=== PATIENT | male | born 1945 | race Caucasian/White ===

== ENCOUNTER 2016-07-24 05:20 | Inpatient (IN) | payer BC, OTHER ==
[2016-07-18 13:34] VITALS: BMI 39.0
--- NOTE | 2016-07-18 14:04 | PAT Medication Instructions ---
Service Date Jul 18, 2016. Current Home Medication List Albuterol Hfa (Ventolin Hfa), 2 PUFFS INH Q4 PRN for cough,wheeze,sob,prior to exer Amlodipine (Norvasc), 5 MG PO QAM Carvedilol (Coreg), 12.5 MG PO BID Cetirizine (Zyrtec), 10 MG PO QAM Fluticasone Propionate (Flovent Hfa), 2 PUFFS INH BID Ibuprofen (Advil), 200-600 MG PO TID Indapamide (Indapamide), 2.5 MG PO QAM Lisinopril (Zestril), 40 MG PO QAM Mometasone Furoate (Nasonex), 2 SPRAY VIC BID Pravastatin (Pravachol ), 20 MG PO QAM Sildenafil Citrate (Revatio), 3 TABS PO DAILY PRN for erectile dysfunction Sumatriptan Succinate (Imitrex), 100 MG PO UD PRN for Migraine Sumatriptan Succinate (Imitrex Statdose), 6 MG SQ UD PRN for Migraine Medication Instructions For Your Scheduled Surgery Sumatriptan Succinate (Imitrex), 100 MG PO UD PRN for Migraine (takes rarely and only with migraines) Sumatriptan Succinate (Imitrex Statdose), 6 MG SQ UD PRN for Migraine (takes rarely and only with migraines) - Hold the following medications 7 days prior to surgery: Ibuprofen (Advil), 200-600 MG PO TID - Hold the following medications 24 hours prior to surgery: Sildenafil Citrate (Revatio), 3 TABS PO DAILY PRN for erectile dysfunction - Hold the following medications the morning of surgery: Lisinopril (Zestril), 40 MG PO QAM Indapamide (Indapamide), 2.5 MG PO QAM Cetirizine (Zyrtec), 10 MG PO QAM - Take the following medications the morning of surgery with a sip of water: Pravastatin (Pravachol ), 20 MG PO QAM Mometasone Furoate (Nasonex), 2 SPRAY VIC BID Fluticasone Propionate (Flovent Hfa), 2 PUFFS INH BID Carvedilol (Coreg), 12.5 MG PO BID Amlodipine (Norvasc), 5 MG PO QAM Albuterol Hfa (Ventolin Hfa), 2 PUFFS INH Q4 PRN for cough,wheeze,sob,prior to exer (bring with you to hospital on day of surgery) - Take the following medications as scheduled the night before surgery: Mometasone Furoate (Nasonex), 2 SPRAY VIC BID Fluticasone Propionate (Flovent Hfa), 2 PUFFS INH BID Carvedilol (Coreg), 12.5 MG PO BID Albuterol Hfa (Ventolin Hfa), 2 PUFFS INH Q4 PRN for cough,wheeze,sob,prior to exer If you have any questions please call us at [phone] or [phone] ( Izabela) or [phone]
[2016-07-18 14:20] LABS: BASO % 0.6 %; BASO ABS # 0.05 K/uL (0-0.2); COMPLETE YES; EOS % 14.6 %; IG% 1.1 %; LYMPH % 28.8 %; LYMPH ABS # 2.27 K/uL (1.2-3.4); MEAN CELL VOLUME 93.3 fL (80-100); MEAN CORPUSCULAR HEMOGLOBIN 31.9 pg (25-34); MEAN CORPUSCULAR HGB CONC 34.2 g/dl (32-36); MEAN PLATELET VOLUME 9.8 fL (7.4-10.4); MONO % 8.1 %; NEUT % 46.8 %; PLATELET COUNT 225 K/uL (130-400); RED BLOOD COUNT 4.61 M/uL (4.7-6.1); WHITE BLOOD COUNT 7.89 K/uL (4.8-10.8)
[2016-07-18 14:27] LABS: MANUAL MICROSCOPIC REQUIRED? NO; REVIEW REQ? NO; URINE APPEARANCE CLEAR (CLEAR); URINE BILIRUBIN NEG (NEG); URINE COLOR YELLOW; URINE EPITHELIAL CELL AUTO 0-5 /lpf (0-5); URINE NITRITE NEG (NEG); URINE SPECIFIC GRAVITY 1.015 (1.000-1.030); UROBILINOGEN NEG (NEG)
[2016-07-18 14:29] LABS: PARTIAL THROMBOPLASTIN RATIO 0.9; PROTHROMBIN TIME (PATIENT) 10.7 SECONDS (9.0-12.0)
--- NOTE | 2016-07-18 14:29 | DIAGNOSTIC IMAGING REPORT ---
CHEST 2 VIEWS ROUTINE CLINICAL HISTORY: Preoperative evaluation. COMPARISON STUDY: Chest radiograph May 20, 2016. FINDINGS: Lung volumes are at the lower limits of normal. There is no pneumothorax or pleural effusion. Mild to moderate cardiomegaly is noted. There is no evidence of pulmonary edema. There are chronic deformities of several anterior right-sided ribs. IMPRESSION: 1. No acute findings. 2. Mild to moderate cardiomegaly. Electronically signed by: Meet Mclaughlin M.D. 07/18/2016 2:27 PM Dictated Date/Time: 07/18/2016 2:26 PM
[2016-07-18 14:59] LABS: BUN/CREATININE RATIO 10.2 (10-20); CALCIUM 9.3 mg/dl (8.5-10.1); CREATININE 1.3 mg/dl (0.60-1.40); POTASSIUM 3.2 mmol/L (3.5-5.1)
--- NOTE | 2016-07-18 16:20 | HISTORY & PHYSICAL EXAMINATION ---
DATE OF ADMISSION: 07/24/2016 ATTENDING PHYSICIAN: Dr. Hidalgo from [facility]. CHIEF COMPLAINT: Left knee pain. HISTORY OF PRESENT ILLNESS: Jordin is a 70-year-old male patient of Dr. Hidalgo's from [facility] with a long history of left knee pain that has failed conservative treatment, which includes intraarticular joint injections, behavior modification, rest, [id number] oral anti-inflammatories or analgesics, thermal modalities and prior surgery. He admits to pain on a daily basis, it is worse with activity, he has pain at rest and makes certain activities of daily living difficult, denies any recent injuries or falls. Denies numbness or tingling distally and denies any calf pain. PAST MEDICAL HISTORY: 1. Hypertension. 2. Asthma. 3. Seasonal allergies. 4. Osteoarthritis. 5. Obesity. 6. History of kidney stones. 7. History of migraine. PAST SURGICAL HISTORY: 1. Hiatal hernia repair. 2. Sinus surgery, polyp removal. 3. Left knee arthroscopy, partial meniscectomy. 4. Appendectomy. 5. Tonsillectomy. SOCIAL HISTORY: The patient lives at home in a safe environment. He does have a prior history of smoking cigarettes, 1 pack a day for 20 years. He discontinued smoking in 1976. He drinks wine socially. Denies any current tobacco or illegal drug use. He is . FAMILY HISTORY: Noncontributory. MEDICATIONS: 1. Excedrin oral tablet 2 tabs as needed for migraine. 2. Zyrtec 10 mg tab as needed. 3. Flovent HFA 44 mcg INH 2 puffs inhaled twice daily. 4. Ibuprofen 200 mg tabs as needed for pain. 5. Lisinopril 10 mg tab daily. 6. Nasonex 50 mcg INH spray, 2 sprays twice a day as needed for allergy symptoms. 7. Verapamil 40 mg tablet once daily. ALLERGIES: No known drug allergies. REVIEW OF SYSTEMS: The patient denies headache, chest pain, shortness of breath, fevers, chills or night sweats. PHYSICAL EXAMINATION: GENERAL: The patient is alert and oriented x3 male, who is in no acute distress, pleasant, appears his currently stated age. HEENT: Head is atraumatic, normocephalic. Eyes are equal, round react to light and accommodation. NECK: Supple. No JVD. No lymphadenopathy. Oral and nasal cavities are patent. No exudate or erythema. The patient's dentition reveals lower frontal dental implants that are permanently fixated; his upper dentition does not reveal any obvious caries or infection. CARDIAC: Regular rate and rhythm. S1 greater than S2. No murmurs, rubs or gallops appreciated. RESPIRATORY: Lungs are clear to auscultation bilaterally in all lung rosales. No rales, rhonchi or wheezing. GASTROINTESTINAL: Abdomen is rounded, soft, nontender, nondistended. Normal active bowel sounds all 4 quadrants. SKIN: Exam of the patient's left knee does not reveal any erythema, ecchymosis, abrasions, lacerations or skin breakdown. NEUROVASCULAR: The left lower extremity distally pulses +2. Capillary refill under 2 seconds. Good sensation to light touch. Toes freely mobile. +5 strength with dorsi and plantar flexion of the foot. Calf is supple, nontender. MUSCULOSKELETAL: Exam of the patient's left knee - range of motion is, the patient is able to reach terminal extension at 0 degrees, has flexion upwards of 115 degrees with pain at endpoints along the medial joint line and he has medial joint line tenderness, he has a positive modified Sarahy flexion circumduction test. Please note he has pain only medially. He has crepitation noted in the patellofemoral joint with range of motion. Ligamentously stable regarding cruciate and collateral ligaments. No obvious cystic changes or masses in the popliteal fossa. His extensor mechanism is intact. Slight antalgic gait. Hip and ankle atraumatic. RADIOGRAPHS: The patient's left knee reveal advanced osteoarthritis of the left knee on AP, lateral and sunrise views. There is periarticular osteophytosis, joint space narrowing, sclerotic change, minimal evidence of subchondral cyst formation. There is no sign of fracture or dislocation. Otherwise, no evidence of cystic changes or masses in the bone. IMPRESSION: Left knee degenerative joint disease. PLAN: Jordin will undergo a left total knee arthroplasty by Dr. Hidalgo at the [facility] on 07/24/2016. The patient has already obtained preoperative medical clearance through his PCP, Dr. Sarah Beltran from [facility]. He is scheduled to have cardiac clearance on 07/22/[address] Ford from [facility]. The patient will discontinue his nonsteroidal anti-inflammatory medication 1 week prior to surgery. The patient is requesting to have outpatient services after being discharged from the hospital; he would like to perform physical therapy at [facility] and this will be scheduled for the Friday after he is discharged from the hospital. He will follow up 2 weeks after surgery with Elkin Jones on 08/08/2016 for staple removal. The patient had preadmission testing appointment on 07/18/2016 and obtained preoperative labs, CBC with diff, electrolytes, BUN, creatinine, PT/INR, EKG, chest x-ray, type and screen and urinalysis. The patient will use Coumadin x6 weeks postoperatively for DVT prophylaxis with a target INR of 1.8-2.2. He will use Percocet for postoperative pain control. Jordin will require a walker postoperatively; he states he has a walker and a cane for assistance afterwards if needed, when discontinuing the walker. Any other questions or concerns, notify [facility] at [phone].
[2016-07-24] VITALS (11 sets, daily range): BP systolic 114–142; BP diastolic 73–93; PULSE 70–84; TEMP 36.4–36.9; O2SAT 91–98; Ht 172.7 cm; Wt 115.6 kg
[~2016-07-24] VITALS: Ht 172.7 cm; Wt 115.6 kg
[~2016-07-24 05:20] MED LIST: AMLO-110 PO; CARV12.52 PO; CETI10TA84 PO; FLVHFA110 INH; IBUP-1050 PO; INDA2.5T PO; LISI40TA PO; MOME50SP5 NAE; PRAV20TA PO; SILD1TAB25 PO; SUMA100T16 PO; SUMA6KIT SQ; VNTHFA/IN INH
[2016-07-24] MEDS ORDERED: TRANEXAMIC ACID INJ 1,000 MG in SODIUM CHLORIDE 0.9% 100ML 100 ML IV SCH ×2 (06:00→15:00)
[2016-07-24] MEDS ORDERED: ROPIVACAINE 5MG/ML 30 ML 150 MG, BUPIVACAINE/EPINEPHR 0.5% MPF 30 ML, KETOROLAC TROMETH... INFIL SCH ×7 (06:00)
[2016-07-24] MEDS ORDERED: LACTATED RINGER'S 1000ML 1,000 ML IV SCH (06:00)
[2016-07-24] MEDS ORDERED: LACTATED RINGER'S 1000ML IV SCH (06:00)
[2016-07-24] MEDS ORDERED: CEFAZOLIN 2000 MG/60 ML D5W 60 ML IV SCH (06:00)
[2016-07-24] MEDS ORDERED: BUPIVACAINE 0.5 % 5 MG/1 ML PF 10ML VIAL ONE (06:16)
[2016-07-24] MEDS ORDERED: BUPIVACAINE 0.25% 30 ML VIAL ONE (06:17)
--- NOTE | 2016-07-24 06:21 | History & Physical Bridge Note ---
H&P Re-Evaluation Bridge Note: I have examined the patient, reviewed the History & Physical and in the interval since the performance of the History & Physical I have noted the following changes of clinical significance: No changes noted
[2016-07-24] MEDS ORDERED: POVIDONE-IODINE OP SOLN 30 ML BTL ONE (06:30)
[2016-07-24] MEDS ORDERED: ORTHO JOINT ANESTHETIC ONE (06:30)
[2016-07-24] MEDS ORDERED: PROPOFOL IV EMULSION 10 MG/ML 20 ML VIAL IV ONE (06:30)
[2016-07-24] MEDS ORDERED: LIDOCAINE HCL 2% 2 ML VIAL (20MG/ML) ONE (06:30)
[2016-07-24] MEDS ORDERED: FENTANYL CITRATE INJ 50 MCG/1 ML 2 ML VIAL ONE (06:31)
[2016-07-24] MEDS ORDERED: MIDAZOLAM HCL 1 MG/ML 2ML VIAL ONE (06:31)
[2016-07-24] MEDS ORDERED: LACTATED RINGER'S 1000ML 1,000 ML IV PRN (07:18)
[2016-07-24] MEDS ORDERED: ONDANSETRON INJ 2 MG/ML 2 ML VIAL IV PRN ×2 (07:30→08:45)
[2016-07-24] MEDS ORDERED: FENTANYL CITRATE INJ 50 MCG/1 ML 2 ML VIAL IV PRN (07:30)
--- NOTE | 2016-07-24 08:23 | [facility] Post Operative Brief Note ---
Immediate Operative Summary Operative Date Jul 24, 2016. Pre-Operative Diagnosis Left Knee Degnerative Joint Disease Post-Operative Diagnosis Left Knee Degnerative Joint Disease Procedure(s) Performed Left Total Knee Arthroplasty Surgeon Dr. Hidalgo Payroll Consultant Surgeon(s) YURI Lay Estimated Blood Loss 50 ml Findings medial djd Fluids (cc crystalloids) 1500cc Specimens A. Left Knee Bone and Tissue Drains none Anesthesia spinal/block Complication(s) None Disposition Recovery Room / PACU
--- NOTE | 2016-07-24 08:36 | OPERATIVE REPORT ---
DATE OF OPERATION: 07/24/2016 PREOPERATIVE DIAGNOSIS: Osteoarthritis with varus deformity, left knee. POSTOPERATIVE DIAGNOSIS: Same. OPERATION PERFORMED: Cemented left total knee replacement. SURGEON: Dr. Hidalgo. AMMONIA STILL OPERATOR: Elkin Jones PA-C. SECOND AMMONIA STILL OPERATOR: SOULEYMANE Pro. PERIOPERATIVE SITUATION: Medically cleared male with intractable knee pain, has progressive varus deformity, joint space narrowing, recurrent effusions, has failed conservative management for years. At this point in time wants to proceed with surgical treatment. X-ray revealed marked joint space narrowing medially, periarticular osteophytes tricompartmentally. SUMMARY OF IMPLANTS: Size 4 posterior cruciate substituting femur left, size 4 cemented tibial tray rotating platform, oval domed 3 pegged patella size 41, tibial insert rotating platform posterior cruciate stabilized size 10, oval domed 3 pegged patella as stated and 2 bags of Palacos G cement. PROCEDURE: The patient was properly identified, site verified, consent verified, 2 grams of Ancef confirmed as being given. The left lower extremity was prepped and draped in usual routine fashion. Tourniquet inflated to 300 mmHg after exsanguination of limb with a rubber Esmarch bandage for a total of 48 minutes. Midline exposure utilized. Parapatellar arthrotomy performed. Appropriate soft tissue releases performed, synovectomy completed. Osteophytes resected. Distal femur entered. Distal femur resected 12 mm. The tibia subluxated, menisci remnants excised. There was grade 4 disease in the medial compartment. The tibia was resected 4 mm. The extension gap was excellent. The femur again was sized between a 5 and 4, was measured 5 cut 4 and then the flexion gap checked. It was excellent. The box cut was then made. The tibia was then broached and reamed to a size 4 and the trials fit well. The patella tracked well. The patella was sized to 41. It was resected leaving 15 mm. The trial holes seated and the patella tracked well. All remaining elements were then removed from the trial aspect. The wound irrigated with Betadine Pulsavac, Orthomix injected and then the permanent cemented into position. After 12 minutes, the tourniquet deflated. After 14 minutes the knee flexed. The knee irrigated. No cement removal was necessary. The knee irrigated with Betadine and Pulsavac and then the permanent spacer seated. The knee reduced and closed, minimal blood loss was noted, about 50 mL. No drain was placed. #1 Ethibond, #1 Vicryl, 2-0 Vicryl and stainless steel clips were used for the closure in layers. Appropriate dressing applied. The patient was then transferred to recovery room in satisfactory condition having tolerated the procedure well. Crystalloid about 1500 mL. Deep venous thrombosis prophylaxis per protocol. I attest to the content of the Intraoperative Record and any orders documented therein. Any exceptio ns are noted below.
[2016-07-24] MEDS ORDERED: SUMATRIPTAN SUCC TAB 100 MG TAB PO PRN (08:45)
[2016-07-24] MEDS ORDERED: BISACODYL 10 MG SUPP PR PRN (08:45)
[2016-07-24] MEDS ORDERED: SILDENAFIL CITRATE 20 MG TAB PO PRN (08:45)
[2016-07-24] MEDS ORDERED: ALBUTEROL HFA 8 GM INHALER INH PRN (08:45)
[2016-07-24] MEDS ORDERED: TAMSULOSIN HCL 0.4 MG CAP PO PRN (08:45)
[2016-07-24] MEDS ORDERED: DiphenhydrAMINE HCL 50 MG/ML VIAL IV PRN (08:45)
[2016-07-24] MEDS ORDERED: METOCLOPRAMIDE HCL INJ 5 MG/ML 2 ML VIAL IV PRN (08:45)
[2016-07-24] MEDS ORDERED: OXYCODONE HCL IR 5 MG TAB (IMMEDIATE RELEASE) PO PRN (08:45)
[2016-07-24] MEDS ORDERED: ALUMINUM/MAGNESIUM/SIMETH (MAALOX MAX) 30 ML UDC PO PRN (08:45)
[2016-07-24] MEDS ORDERED: MoRPHine SULFATE 2 MG/ML CARP IV PRN (08:45)
[2016-07-24] MEDS ORDERED: MAGNESIUM HYDROXIDE SUSP 30 ML UDC PO PRN (08:45)
[2016-07-24] MEDS ORDERED: SUMATRIPTAN SUCCINATE 6 MG/0.5 ML VIAL SQ PRN (08:45)
[2016-07-24] MEDS ORDERED: ACETAMINOPHEN 325 MG TAB PO PRN (08:45)
[2016-07-24] MEDS ORDERED: ACETAMINOPHEN IV 100 ML IV PRN (08:45)
--- NOTE | 2016-07-24 08:50 | DIAGNOSTIC IMAGING REPORT ---
LEFT KNEE 1 OR 2 VIEWS ROUTINE CLINICAL HISTORY: AP/LATERAL IN PACU LEFT KNEE joint replacement COMPARISON: None. DISCUSSION: Status post total left knee replacement. Good contact between prosthetic and underlying bone. Expected soft tissue postoperative change IMPRESSION: Anatomic alignment status post total left knee replacement Electronically signed by: Luis Fernando Mendez M.D. 07/24/2016 8:49 AM Dictated Date/Time: 07/24/2016 8:48 AM
[2016-07-24] MEDS: AMLODIPINE BESYLATE 5 MG TAB PO SCH (09:00)
[2016-07-24] MEDS ORDERED: INDAPAMIDE 2.5 MG PO SCH (09:00)
--- NOTE | 2016-07-24 09:45 | Anesthesiology Progress Note ---
Anesthesia Post Op Note Date & Time Jul 24, 2016 at 09:45 Vital Signs Pain Intensity: 0 Vital Signs Past 12 Hours Date Time Temp Pulse Resp B/P Pulse Ox O2 Delivery O2 Flow Rate FiO2 07/24/16 09:30 36.2 76 18 116/85 100 Nasal Cannula 2 07/24/16 09:20 72 12 115/84 100 Nasal Cannula 2 07/24/16 09:10 71 16 118/80 95 Nasal Cannula 2 07/24/16 09:00 78 16 115/86 96 Nasal Cannula 2 07/24/16 08:50 73 16 122/85 96 Nasal Cannula 2 07/24/16 08:40 76 13 123/83 92 Nasal Cannula 2 07/24/16 08:33 36.0 76 16 110/82 96 Nasal Cannula 2 07/24/16 05:48 36.7 79 20 128/84 94 Room Air 07/24/16 05:42 36.7 79 20 128/84 Notes Mental Status: alert / awake / arousable, participated in evaluation Pt Amnestic to Procedure: Yes Nausea / Vomiting: adequately controlled Pain: adequately controlled Airway Patency, RR, SpO2: stable & adequate BP & HR: stable & adequate Hydration State: stable & adequate Neuraxial Anesthesia: was administered, sensory block is resolving Anesthetic Complications: no major complications apparent
--- NOTE | 2016-07-24 10:54 | OPERATIVE REPORT ---
DATE OF OPERATION: 07/24/2016 PREOPERATIVE DIAGNOSIS: Left knee degenerative joint disease. POSTOPERATIVE DIAGNOSIS: Left knee same. PROCEDURE: Left knee total knee arthroplasty using DePuy implants. SURGEON: Dr. Hidalgo. OPERATIONS PROGRAM MANAGER: Elkin Jones PA-C. HISTORY OF PRESENT ILLNESS: This 70-year-old white male presented to the office with complaints of intractable left knee pain. He had tried conservative care measures including oral anti-inflammatories, oral pain medication, activity modification and viscosupplementation injections as well as cortisone injections without lasting relief. He elected to proceed with surgical intervention after being educated about potential risks and outcomes. Preoperative x-rays were obtained. OPERATION: The patient was administered spinal anesthetic and then taken to the operating room where he was given sedation. He was prepped and draped in the usual sterile fashion. Please see Dr. Hidalgo's operative report for specifics of the procedure. I was present for the entire case from initial patient positioning through final wound closure. Assistance was provided in tissue retraction, hemostasis, trial implant placement, final implant placement, and final wound closure. The patient was taken to the recovery room in satisfactory condition. I attest to the content of the Intraoperative Record and any orders documented therein. Any exceptio ns are noted below.
[2016-07-24] MEDS ORDERED: OXYC-57 PO (10:59)
[2016-07-24] MEDS ORDERED: WARF2TAB PO (10:59)
--- NOTE | 2016-07-24 11:10 | PROGRESS NOTE ---
DATE: 07/24/2016 Postop check status post left total knee replacement. He has no problems presently. Denies chest pain, shortness of breath, fever, chills, nausea, vomiting, headache. He is keeping water down. His vital signs are stable. He is afebrile. Neurovascular check, femoral sciatic nerve is excellent. Postop x-rays look excellent. ASSESSMENT: Overall, doing well. Continue with care pathway. Mobilize RIKI. If tolerates lunch and snack in the afternoon can Hep-Lock his IV.
--- NOTE | 2016-07-24 11:13 | Medical Student: [facility] ---
Operative Report Operative Date Jul 24, 2016. Pre-Operative Diagnosis Osteoarthritis of Left Knee Post-Operative Diagnosis Osteoarthritis of Left Knee Procedure(s) Performed Total Left Knee Arthroplasty Surgeon Dr. Rocky MD Horizontal Resaw Operator Surgeon(s) Elkin Jones PA-C Estimated Blood Loss Less than 50 mL Findings Confirmation of osteoarthritis of left knee Fluids (cc crystalloids) 1500 cc Specimens Bone and soft tissue Anesthesia Spinal Complication(s) None Disposition Recovery Room / PACU
--- NOTE | 2016-07-24 11:40 | Medical Consult ---
Consultation Date of Consultation: Jul 24, 2016. Attending Physician: Nghia Hidalgo M.D. Reason for Consultation: Post Op Medical Management History of Present Illness 70 year old male who is s/p left TKA today by Dr. Hidalgo. Patient has had increasing left knee pain for some time and failed outpatient conservative measures. He therefore presented for the planned procedure today. Post operatively the patient is doing well. He reports he continues to have mild numbness to the BLLE and pain is controlled. No chest pain or shortness of breath. He denies lightheadedness and dizziness. No abdominal pain, nausea, or vomiting. He has not voided since surgery. Past Medical/Surgical History Medical Problems: (1) Asthma Status: Chronic (2) HTN (hypertension) Status: Chronic (3) Migraine Status: Chronic Surgical Problems: (1) H/O colonoscopy Status: Chronic (2) H/O hand surgery Status: Chronic (3) H/O sinus surgery Status: Chronic (4) History of appendectomy Status: Chronic (5) History of esophagogastroduodenoscopy (EGD) Status: Chronic (6) Hx of tonsillectomy Status: Chronic Social History Smoking Status: Former Smoker Alcohol Use: occasionally Allergies Coded Allergies: No Known Allergies (Verified , 07/24/16) Home Medications Norvasc (Amlodipine Besylate) 5 Mg Tab 5 Mg PO QAM Advil (Ibuprofen) 200 Mg Tab 200-600 Mg PO TID HOLD 07/15/16 Imitrex Statdose (Sumatriptan Succinate) 6 Mg/0.5 Ml Inj 6 Mg SQ UD PRN 1 at onset. may repeat in 2 hours if needed Imitrex (Sumatriptan Succinate) 100 Mg Tab 100 Mg PO UD PRN use 1 at onset. may repeat in 2 hour if needed Flovent Hfa (Fluticasone Propionate) 120 Puffs/71289 Mcg Aero 2 Puffs INH BID Revatio (Sildenafil Citrate) 20 Mg Tab 3 Tabs PO DAILY PRN Ventolin Hfa (Albuterol) 200 Puffs/[id number] Mcg Aers 2 Puffs INH Q4 PRN Coreg (Carvedilol) 12.5 Mg Tab 12.5 Mg PO BID Indapamide 2.5 Mg Tab 2.5 Mg PO QAM Pravachol (Pravastatin Sodium) 20 Mg Tab 20 Mg PO QAM Zyrtec (Cetirizine HCl) 10 Mg Tab 10 Mg PO QAM Nasonex (Mometasone Furoate) Preemption 2 Preemption VIC BID Zestril (Lisinopril) 40 Mg Tab 40 Mg PO QAM Current Inpatient Medications Current Inpatient Medications Medications (Trade) Dose Ordered Sig/Sharan Route Start Time Stop Time Status Last Admin Dose Admin Ropivacaine 150 mg/Bupivacaine HCl/Epinephrine Bitart 30 ml/ Ketorolac Tromethamine 30 mg/Dexamethasone Sodium Phosphate 4 mg/Ketamine HCl 10 mg/Clonidine 100 mcg/Sodium Chloride 30 ml/ Empty Bag 93.2 ml @ 0 mls/hr PREOP INFIL 07/24/16 06:00 07/24/16 23:00 07/24/16 07:31 93.2 MLS/HR Lactated Ringer's 1,000 ml @ 60 mls/hr [id number] IV 07/24/16 06:00 07/24/16 22:39 Cefazolin Sodium 60 ml @ 100 mls/hr PREOP IV 07/24/16 06:00 07/24/16 18:00 07/24/16 06:58 100 MLS/HR Lactated Ringer's (Lr 1000ml) 1,000 ml @ 15 mls/hr Q24H IV 07/24/16 06:00 07/25/16 05:59 07/24/16 06:27 15 MLS/HR Fentanyl Citrate (Fentanyl Inj) 25 mcg Q5M PRN IV 07/24/16 07:30 07/24/16 12:30 Ondansetron HCl 4 mg 4 mg ONE PRN IV 07/24/16 07:30 07/24/16 12:30 Lactated Ringer's 1,000 ml @ 150 mls/hr Q6H40M PRN IV 07/24/16 07:18 07/24/16 12:30 Potassium Chloride/Dextrose/ Sod Cl 1,000 ml @ 100 mls/hr Q10H IV 07/24/16 12:00 07/25/16 11:59 Cefazolin Sodium/ Dextrose (Ancef Iv/D5 50ml) 60 ml @ 100 mls/hr Q8H IV 07/24/16 14:00 07/24/16 22:35 Ketorolac Tromethamine (Toradol Inj) 15 mg Q6H IV. 07/24/16 14:00 07/25/16 13:59 Oxycodone HCl (Roxicodone Immediate Rel Tab) 1 TABLET FOR PAIN RATING... Q4H PRN PO 07/24/16 08:45 08/07/16 08:44 Morphine Sulfate (MoRPHine SULFATE INJ) 2 mg Q1H PRN IV 07/24/16 08:45 08/07/16 08:44 Acetaminophen (Tylenol Tab) 650 mg Q6H PRN PO 07/24/16 08:45 08/23/16 08:44 UNV Magnesium Hydroxide (Milk Of Magnesia Susp) 30 ml Q6H PRN PO 07/24/16 08:45 08/23/16 08:44 UNV Bisacodyl (Dulcolax Supp) 10 mg DAILY PRN VT 07/24/16 08:45 08/23/16 08:44 UNV Docusate Sodium (coLACE CAP) 100 mg BID PO 07/24/16 09:00 08/23/16 08:59 UNV Diphenhydramine HCl (Benadryl Inj) 25 mg Q8H PRN IV 07/24/16 08:45 08/23/16 08:44 UNV Al Hydrox/Mg Hydrox/Simethicone (Maalox Max Susp) 15 ml Q4H PRN PO 07/24/16 08:45 08/23/16 08:44 UNV Multivitamins (Multivitamin Tab) 1 tab QAM PO 07/24/16 09:00 08/23/16 08:59 UNV Ondansetron HCl (Zofran Inj) 4 mg Q6H PRN IV 07/24/16 08:45 08/23/16 08:44 UNV Metoclopramide HCl (Reglan Inj) 10 mg Q6H PRN IV 07/24/16 08:45 08/23/16 08:44 UNV Ferrous Gluconate (Ferrous Gluconate Tab) 324 mg TIDM PO 07/24/16 12:00 08/23/16 11:59 UNV Pantoprazole Sodium (Protonix Tab) 40 mg QAM PO 07/24/16 09:00 08/23/16 08:59 UNV Tamsulosin HCl 0.4 mg 0.4 mg QAM PRN PO 07/24/16 08:45 08/23/16 08:44 UNV Tranexamic Acid 1000 mg/Sodium Chloride 110 ml @ 660 mls/hr Q6H IV 07/24/16 08:45 07/24/16 08:54 UNV Dexamethasone Sodium Phosphate/ Syringe (Decadron Inj/ Syringe) 2.5 ml @ 1 mls/min 0730 IV 07/25/16 07:30 07/25/16 07:33 UNV Albuterol (Ventolin Hfa Inhaler) 2 puffs Q4 PRN INH 07/24/16 08:45 08/23/16 08:44 UNV Amlodipine Besylate (Norvasc Tab) 5 mg QAM PO 07/24/16 09:00 08/23/16 08:59 UNV Carvedilol (Coreg Tab) 12.5 mg BID PO 07/24/16 09:00 08/23/16 08:59 UNV Cetirizine HCl (zyrTEC TAB) 10 mg QAM PO 07/24/16 09:00 08/23/16 08:59 UNV Fluticasone Propionate (Flovent Hfa 110MCG Inhaler) 2 puffs BID INH 07/24/16 09:00 08/23/16 08:59 UNV Lisinopril (Zestril Tab) 40 mg QAM PO 07/24/16 09:00 08/23/16 08:59 UNV Pravastatin Sodium (Pravachol Tab) 20 mg QAM PO 07/24/16 09:00 08/23/16 08:59 UNV Sumatriptan Succinate (Imitrex Tab) 100 mg UD PRN PO 07/24/16 08:45 08/23/16 08:44 UNV Non-Formulary Medication (Mometasone Furoate (Nasonex)) 2 spray BID VIC 07/24/16 09:00 08/23/16 08:59 UNV Non-Formulary Medication 6 mg 6 mg UD PRN SQ 07/24/16 08:45 08/23/16 08:44 UNV Acetaminophen (Ofirmev Iv) 100 ml @ 400 mls/hr Q8H PRN IV 07/24/16 08:45 07/25/16 09:00 UNV Review of Systems 10 point review of systems was completed with the pertinent positives and negatives noted per the HPI Physical Exam Date Time Temp Pulse Resp B/P Pulse Ox O2 Delivery O2 Flow Rate FiO2 07/24/16 10:52 70 16 122/82 95 Nasal Cannula 2.0 07/24/16 10:20 71 16 121/85 94 Nasal Cannula 2.0 07/24/16 09:50 36.4 74 16 125/81 95 Nasal Cannula 2.0 07/24/16 09:50 Nasal Cannula 2.0 07/24/16 09:50 95 Nasal Cannula 2.0 07/24/16 09:45 75 13 120/86 100 Nasal Cannula 2 07/24/16 09:30 36.2 76 18 116/85 100 Nasal Cannula 2 07/24/16 09:20 72 12 115/84 100 Nasal Cannula 2 07/24/16 09:10 71 16 118/80 95 Nasal Cannula 2 07/24/16 09:00 78 16 115/86 96 Nasal Cannula 2 07/24/16 08:50 73 16 122/85 96 Nasal Cannula 2 07/24/16 08:40 76 13 123/83 92 Nasal Cannula 2 07/24/16 08:33 36.0 76 16 110/82 96 Nasal Cannula 2 07/24/16 05:48 36.7 79 20 128/84 94 Room Air 07/24/16 05:42 36.7 79 20 128/84 General Appearance: no apparent distress Head: normocephalic Eyes: normal inspection ENT: hearing grossly normal Neck: supple, no JVD Respiratory/Chest: lungs clear, normal breath sounds, no respiratory distress Cardiovascular: regular rate, rhythm, no edema, normal peripheral pulses Abdomen/GI: normal bowel sounds, non tender, soft Extremities/Musculoskelatal: + pertinent finding (s/p left knee surgery, surgical dressing intact, CSM checks intact to BLLE) Neurologic/Psych: no motor/sensory deficits, alert, normal mood/affect, oriented x 3 Skin: normal color, warm/dry Assessment & Plan S/P LEFT TKA - POD#0 - activity and wound care orders as per ortho - pain control with bowel regimen - PT/OT - monitor H/H for acute blood loss anemia and transfuse blood products PRN HTN - BP controlled, continue carvedilol and lisinopril - holding indapamide to prevent perioperative dehydration ASTHMA - no signs of exacerbation - not on routine inhalers at home DYSLIPIDEMIA - continue statin DVT PROPHYLAXIS - deferred to ortho Thank you for this consultation. We will follow the patient with you during their hospital stay. You can reach a member of the [facility] Hospitalist Team 16/12 via pager @ [phone]. ADDENDUM: This is a 70 year old male with PMH of HTN, HLD presents for a total left knee. He had cardiac pre-operative clearance; no cardiac history. No other issues to note currently. GEN: +obese, no acute distress CVS: +S1, S2, RRR LUNGS: CTA b/l, no wheezing ABD: soft, NT/ND EXT: no edema, left knee dressing in place Plan as above; PT/OT, has outpatient rehab scheduled for Friday Hold indapamide; continue other blood pressure pills - his BP is controlled
[2016-07-24] MEDS ORDERED: MoRPHine SULFATE 4 MG/ML 1 ML CARP\\VIAL IV PRN (11:45)
[2016-07-24] MEDS ORDERED: D5W AND 1/2NSS + 20MEQ KCL 1,000 ML IV SCH (12:00)
[2016-07-24] MEDS: MULTIVITAMIN TAB PO SCH (12:43)
[2016-07-24] MEDS: PANTOprazole SOD 40 MG TAB PO SCH (12:43)
[2016-07-24] MEDS: FERROUS GLUCONATE 324 MG TAB PO SCH ×2 (12:43→17:54)
[2016-07-24] MEDS: DOCUSATE SODIUM 100 MG CAP PO SCH ×2 (12:43→21:30)
[2016-07-24] MEDS: KETOROLAC TROMETHAMINE 15 MG/ML VIAL IV. SCH ×2 (14:20→21:29)
[2016-07-24] MEDS: CEFAZOLIN IV 2,000 MG in DEXTROSE 5% 50ML 50 ML IV SCH ×2 (14:20→21:30)
[2016-07-24] MEDS ORDERED: WARFARIN SOD 5 MG TAB PO SCH (16:00)
[2016-07-24] MEDS ORDERED: MOMETASONE FUROATE NAE SCH (21:00)
[2016-07-24] MEDS: FLUTICASONE HFA 110MCG INHALER INH SCH (21:29)
[2016-07-24] MEDS: CARVEDILOL 12.5 MG TAB PO SCH (21:29)
[2016-07-24] MEDS: FLUTICASONE PROPIONATE NA SPR 16 GM BTL NAE SCH (21:39)
[2016-07-25] MEDS: KETOROLAC TROMETHAMINE 15 MG/ML VIAL IV. SCH ×2 (01:15→08:00)
[2016-07-25 03:11] VITALS: BP 124/79; PULSE 74; TEMP 36.5; O2SAT 92
[2016-07-25 06:36] LABS: PROTHROMBIN TIME (PATIENT) 10.7 SECONDS (9.0-12.0)
[2016-07-25 06:54] LABS: HEMATOCRIT 36.6 % (42-52); MEAN CELL VOLUME 92.2 fL (80-100); MEAN CORPUSCULAR HEMOGLOBIN 31.5 pg (25-34); MEAN CORPUSCULAR HGB CONC 34.2 g/dl (32-36); MEAN PLATELET VOLUME 10.3 fL (7.4-10.4); PLATELET COUNT 152 K/uL (130-400); RED BLOOD COUNT 3.97 M/uL (4.7-6.1); WHITE BLOOD COUNT 11.61 K/uL (4.8-10.8)
[2016-07-25 06:56] LABS: BUN/CREATININE RATIO 18.1 (10-20); CALCIUM 8.2 mg/dl (8.5-10.1); CREATININE 1.2 mg/dl (0.60-1.40); POTASSIUM 4.5 mmol/L (3.5-5.1)
[2016-07-25] MEDS: FLUTICASONE HFA 110MCG INHALER INH SCH (07:14)
[2016-07-25] MEDS: FLUTICASONE PROPIONATE NA SPR 16 GM BTL NAE SCH (07:14)
[2016-07-25] MEDS ORDERED: DEXAMETHASONE INJ 10 MG in SYRINGE 0 ML IV SCH (07:30)
[2016-07-25 07:51] VITALS: BP 120/79; PULSE 66; TEMP 36.5; O2SAT 93
--- NOTE | 2016-07-25 07:51 | PROGRESS NOTE ---
DATE: 07/25/2016 Postop day 1 status post left total knee replacement. At this point in time the patient is comfortable, has no chest pain, shortness of breath, fever, chills, nausea, vomiting or headache. He has been ambulating in the perales. Vital signs are stable. He is afebrile. Electrolytes are within normal limits. Hematocrit stable at 36.6. Wound dressing clean, dry and intact. Neurovascular check femoral sciatic nerve is normal. ASSESSMENT: Overall, doing well. Will discharge today postop day #1 after PT, OT. Follow up in 2 weeks for staple removal. Discharge on 4 mg Coumadin a day. INR is 1.0 today. Coumadin per nomogram today. Discharge on 4 mg daily. Check INR on Friday.
--- NOTE | 2016-07-25 07:53 | DISCHARGE SUMMARY ---
DATE OF DISCHARGE: 07/25/2016. CHIEF COMPLAINT: Left knee pain. HISTORY OF PRESENT ILLNESS: The patient is admitted for elective left total knee replacement. Hospital course has been uneventful. He is doing well. He will be discharged postop day #1. PAST MEDICAL HISTORY: Remarkable for hypertension, asthma, seasonal allergies, osteoarthritis, obesity, kidney stones and migraine. PAST SURGICAL HISTORY: Remarkable for hiatal hernia, sinus surgery, knee arthroscopies, appendectomy, tonsillectomy. SOCIAL HISTORY: Reveals that he lives at home. He does have a prior history of smoking 20 years. He stopped smoking in 1976. Social drinker only. Denies any current tobacco or drug use. He is . FAMILY HISTORY: Noncontributory. PREADMISSION MEDICATIONS: Include Excedrin, Zyrtec, Flovent, ibuprofen, lisinopril, Nasonex and verapamil doses as previously stated. He will discontinue the ibuprofen and add Coumadin, discharged on 4 mg daily, get INR to 1.8 to 2.2, p.r.n. Percocet. ALLERGIES: None. HOSPITAL COURSE: Has been uneventful. He is doing well. Physical examination stable. At this point in time his Hematocrit stable at 36.6. He will be discharged today after PT/OT. Social service consult. Follow up in 2 weeks for staple removal.
--- NOTE | 2016-07-25 08:21 | Discharge Instructions ---
Discharge Instructions Admission Reason for Admission: Left Knee Degenerative Joint Disease Discharge Discharge Diagnosis / Problem: left knee s/p total knee replacement Discharge Goals Goal(s): Decrease discomfort, Improve function, Increase independence Activity Recommendations Activity Limitations: as noted below Lifting Limitations: gradually increase as tolerated Exercise/Sports Limitations: until after follow-up appointment Shower/Bathe: keep incision dry Driving or Machine Use: no driving until cleared by Dr. Hidalgo Weightbearing Status: Left weightbearing (as tolerated) . Instructions / Follow-Up Instructions / Follow-Up New Medicine: * You will likely be taking one or more of these medications: 1. Percocet - Take, as directed, when you need it, every four to six hours to control your pain. 2. Coumadin - Thins your blood to lessen the chance of forming a blood clot. The dose of this is different for each person and is based on your blood tests that are done twice a week. * The most common side effects of pain medicine is nausea and constipation. If nausea or constipation is too much of a problem or if you have any questions about your new medicines or doses, call [facility] at . We will try to help you manage these issues. VERY IMPORTANT TO READ AND REVIEW" Blood Clots and Blood Thinning Medicine: * You are given Coumadin during the immediate post-operative period to lessen the risk of blood clots forming in your legs and/or lungs. Coumadin is usually given for six weeks after surgery. * The prescription is for 2 mg tablets. At discharge, you should understand your dose and take it all at the same time every day, preferably after dinner. * You need to get your blood checked 1 - 2 times per week for six weeks or as directed. * If your dose needs to change, we will call you. Do not take your medication on the day of the blood test until we call you. Pain: * The immediate post-operative period after knee replacement surgery is often quite painful. * You are given a prescription for pain medicine. You should take it, as directed, when you need it, especially before physical therapy and before going to bed. Pain that interferes with sleep is very common and can last several months. * You will likely need pain medicine for the first four to six weeks. It will not stop all of the pain. The pain will lessen and as you feel better, you may change to milder pain medicine such as Tylenol. * The most common side effects of pain medicine are nausea and constipation, so don't take more than you need. Physical Therapy: * You will have physical therapy two or three times each week for four to six weeks after your surgery in order to regain your knee range of motion and to retrain your knee to work properly. * It is just as important to make sure you are getting your knee perfectly straight as it is to regain your knee bend. * Taking a pain pill an hour before therapy can help you have a more productive and comfortable therapy session if needed. Home Exercise: * You were shown a series of exercises (heel props, heel slides, etc.) in the hospital. Do these exercises three to four times each day including the exercises you were shown in physical therapy. Walking: * Get up and walk several times each day. For the first four weeks, try not to stand or walk for more than one hour at a time. If you do stand or walk for more than one hour, you will not hurt anything, but your knee and leg will likely swell. * As you feel comfortable, you may change from the walker or crutches to a cane and then to independent walking. SELF CARE INSTRUCTIONS AFTER TOTAL KNEE REPLACEMENT A. You may need to continue a physical therapy program after discharge from the hospital. There are several options available to you. Your doctor will assist you in selecting the best one for you. 1. An out-patient facility 2 to 3 times a week for therapy or home therapy. 2. Continue working on all exercises taught to you in the hospital. Your goals should be to increase bending of your knee to 90 degrees and beyond and to fully straighten your knee. B. You may progress at your own pace from walking with a walker or crutches to a cane; then to no assistive devices. C. Make walking a part of your daily routine. Be up as much as comfortable with rest periods throughout the day. Rest with leg elevation is very important. Use the ice wrap frequently for the first 3-4 weeks. D. There are no restrictions on activities. You may ride in a car, shop, participate in marketing information manager and all social activities. E. Wear the long elastic stockings (CODY hose) 20 hours a day for six weeks after surgery. They can be removed several times a day for laundering and for a shower. F. Do not place a pillow behind your knee when resting. A pillow at your ankle is okay. VERY IMPORTANT TO READ AND REVIEW A. Take Coumadin, Aspirin or Lovenox (blood thinning medications) as directed by your doctor. If on Coumadin, have a pro-time (blood test) drawn according to your doctor's instructions. This will tell the doctor how well the Coumadin is thinning your blood. 1. YOU WILL BE GIVEN AN ORDER AT DISCHARGE FOR PT/INR (BLOOD WORK). PLEASE HAVE THIS DONE INSTRUCTED. PLEASE CALL OUR OFFICE AFTER YOUR BLOODWORK IS COMPLETE SO WE CAN TRACK YOUR RESULTS. IF YOU ARE GOING TO OUTPATIENT PHYSICAL THERAPY, YOU WILL NEED TO GO TO OUTPATIENT TESTING TO HAVE IT DRAWN. B. There are a few signs you need to watch for after you are home. Call [facility] if you notice any of the followin. Increased severe knee pain. Some pain is expected especially when you exercise. 2. Increased swelling in your leg or knee; pain or swelling of the calf muscle in either lower leg. 3. Any fluid drainage from the incision. 4. Shortness of breath or chest pain. C. Please call [facility] at if you have any concerns or questions about your operation or recovery. The doctor or his nurse will return your call promptly. D. You must take antibiotics before dental work, bladder, bowel or other surgery. Call the office to obtain a prescription at least 2 days prior to your appointment. * CALL IF INCREASED PAIN, REDNESS, DRAINAGE OR FEVER GREATER THAT 101. * Sutures should be removed 12-14 days after surgery unless you are on chronic steriods, then it will be 14-18 days after surgery. Call your doctor if: * Temperature above 101 degrees F. * Pain not relieved by pain medicine ordered. * Increased drainage or redness from incision. * Notify your doctor with any questions or concerns. Current Hospital Diet Patient's current hospital diet: AHA Diet (Heart Healthy) Discharge Diet Recommended Diet: AHA Diet (Heart Healthy) Procedures Procedures Performed: Left Total Knee Arthroplasty Pending Studies Studies pending at discharge: no Medical Emergencies . Who to Call and When: Medical Emergencies: If at any time you feel your situation is an emergency, please call 911 immediately. . Non-Emergent Contact Non-Emergency issues call your: Primary Care Provider, Surgeon Call Non-Emergent contact if: temperature is above 100.5, wound has increased drainage, wound has increased redness, wound has increased pain, you have any medication questions . "Provider Documentation" section prepared by Elkin Jones PA-C. VTE Core Measure Inpt VTE Proph given/why not?: Warfarin (Coumadin), T.E.D. Stockings, SCD's
[2016-07-25] MEDS: FERROUS GLUCONATE 324 MG TAB PO SCH (08:30)
[2016-07-25] MEDS: AMLODIPINE BESYLATE 5 MG TAB PO SCH (08:30)
[2016-07-25] MEDS: DOCUSATE SODIUM 100 MG CAP PO SCH (08:31)
[2016-07-25] MEDS: CARVEDILOL 12.5 MG TAB PO SCH (08:31)
[2016-07-25] MEDS: MULTIVITAMIN TAB PO SCH (08:31)
[2016-07-25] MEDS: PANTOprazole SOD 40 MG TAB PO SCH (08:32)
--- NOTE | 2016-07-25 08:34 | Progress Note ---
Orthopedic SOAP Note Subjective Date of Service: Jul 25, 2016. Post OP Day: 1 Reports: feeling well, pain controlled w PO medications, Denies: SOB, calf pain , chest pain, complaints, light headedness, nausea / vomiting, using ADMITTANCE ATTENDANT Problem List Medical Problems: (1) Diaphoresis Status: Acute (2) Hypotension Status: Acute Objective calves soft nontender, N/V intact, capillary refill less than 2 sec., dressing C /D/I, incision C/D/I, A&O x3, toes mobile Date Time Temp Pulse Resp B/P Pulse Ox O2 Delivery O2 Flow Rate FiO2 07/25/16 07:51 36.5 66 16 120/79 93 Room Air 07/25/16 07:12 Room Air 07/25/16 03:11 36.5 74 14 124/79 92 Room Air 07/24/16 23:49 36.7 74 16 114/73 91 Room Air 07/24/16 21:33 84 119/79 07/24/16 20:40 Room Air 07/24/16 19:42 36.9 83 16 142/93 91 Room Air 07/24/16 14:55 36.8 75 16 125/84 95 Room Air 07/24/16 12:50 72 16 124/82 98 Nasal Cannula 2.0 07/24/16 11:50 73 16 127/84 97 Nasal Cannula 2.0 07/24/16 10:52 70 16 122/82 95 Nasal Cannula 2.0 07/24/16 10:20 71 16 121/85 94 Nasal Cannula 2.0 07/24/16 09:50 36.4 74 16 125/81 95 Nasal Cannula 2.0 07/24/16 09:50 Nasal Cannula 2.0 07/24/16 09:50 95 Nasal Cannula 2.0 07/24/16 09:45 75 13 120/86 100 Nasal Cannula 2 07/24/16 09:30 36.2 76 18 116/85 100 Nasal Cannula 2 07/24/16 09:20 72 12 115/84 100 Nasal Cannula 2 07/24/16 09:10 71 16 118/80 95 Nasal Cannula 2 07/24/16 09:00 78 16 115/86 96 Nasal Cannula 2 07/24/16 08:50 73 16 122/85 96 Nasal Cannula 2 07/24/16 08:40 76 13 123/83 92 Nasal Cannula 2 07/24/16 08:33 36.0 76 16 110/82 96 Nasal Cannula 2 Laboratory Results 24 Hours: Test 07/25/16 06:16 Hematocrit 36.6 % Hemoglobin 12.5 g/dL Prothromb Time International Ratio 1.0 Prothrombin Time 10.7 SECONDS Assessment post op day 1 left total knee arthroplasty Plan continue post op care PT/OT DVT prophylaxis with Coumadin x 6 weeks with target INR 1.8-2.2 Will go home on 4mg Coumadin, recheck INR Friday Pain control with prescribed medications ice/elevate resume diet WBAT left L.E. and walker PT scheduled for Friday at [facility] f/u in 2 weeks for staple removal Discharge home today
[2016-07-25] MEDS ORDERED: LISINOPRIL 40 MG TAB PO SCH (09:00)
[2016-07-25] MEDS ORDERED: CETIRIZINE HCL 10 MG TAB PO SCH (09:00)
[2016-07-25] MEDS ORDERED: PRAVASTATIN SOD 20 MG TAB PO SCH (09:00)
[2016-07-25 10:15] VITALS: BP 120/76; PULSE 78; O2SAT 94
[2016-07-25 10:26] VITALS: BP 120/79; PULSE 66; TEMP 36.5; O2SAT 93
[2016-07-25] MEDS ORDERED: NURSING VERBAL MED ORDER ONE (10:45)
[2016-07-25] MEDS ORDERED: WARFARIN SOD 5 MG TAB PO ONE (11:00)
== END 2016-07-25 11:57 | disposition home or self-care (01) | DRG 470 ==
LOC: ENRESERVTM → ENRESERVDT → C.ACU 05:20 → C.3E 06:00
PROVIDERS: ADMIT Physical Medicine & Rehabilitation Sports Medicine; ATTEND Physical Medicine & Rehabilitation Sports Medicine
PROC: 0SRD0J9 Replacement of Left Knee Joint with Synthetic Substitute, Cemented, Open Approach (ICD-10-PCS; principal; 2016-07-24 07:00)
DX: M17.12 Unilateral primary osteoarthritis, left knee (principal); I10 Essential (primary) hypertension; J45.909 Unspecified asthma, uncomplicated; E78.5 Hyperlipidemia, unspecified; E66.9 Obesity, unspecified; Z87.891 Personal history of nicotine dependence; Z68.38 Body mass index [BMI] 38.0-38.9, adult

== ENCOUNTER → 2016-11-18 | Outpatient (CLI) | payer BC, OTHER ==
[~2016-11-18] MED LIST changes: -IBUP-1050 PO; +OXYC-57 PO; +WARF2TAB PO
--- NOTE | 2016-11-18 12:04 | DIAGNOSTIC IMAGING REPORT ---
BILATERAL KNEE RADIOGRAPHS CLINICAL HISTORY: Bilateral knee pain. COMPARISON STUDY: Knee radiographs November 10, 2015 and left knee radiograph July 24, 2016. FINDINGS: Right knee: Alignment of the right knee is anatomic. No fracture or joint effusion is identified. Joint spaces are preserved. There is minimal osteophytosis of the right knee. Left knee: Alignment of the total left knee arthroplasty is anatomic. There is no periprosthetic fracture or lucency. There is soft tissue swelling and a suspected moderate size left knee joint effusion. IMPRESSION: Right knee: 1. No acute fracture or joint effusion. 2. Mild osteoporosis of the patellofemoral compartment. Left knee: 1. Status post total left knee arthroplasty. No periprosthetic fracture or lucency. 2. Left knee soft tissue swelling and a suspected moderate size left knee joint effusion. Electronically signed by: Meet Mclaughlin M.D. 11/18/2016 12:03 PM Dictated Date/Time: 11/18/2016 12:00 PM
== END | disposition home or self-care (01) ==
LOC: C.RDSM 13:22
PROVIDERS: ATTEND Physician Assistant
DX: M17.11 Unilateral primary osteoarthritis, right knee (principal); Z96.652 Presence of left artificial knee joint

== ENCOUNTER → 2017-02-03 | Outpatient (CLI) | payer BC ==
[~2017-02-03] MED LIST changes: -OXYC-57 PO; -WARF2TAB PO
== END | disposition home or self-care (01) ==
LOC: C.RDSM 08:53
PROVIDERS: ATTEND Physical Medicine & Rehabilitation Sports Medicine
DX: Z96.652 Presence of left artificial knee joint (principal)

== ENCOUNTER 2017-06-23 12:36 | Emergency (ER) | payer OTHER ==
[~2017-06-23] VITALS: Ht 172.7 cm; Wt 112.2 kg
[~2017-06-23 12:36] MED LIST changes: -APIX1TAB3 PO
[2017-06-23 13:00] VITALS: TEMP 36.7; Ht 172.7 cm; Wt 112.2 kg
[2017-06-23] MEDS ORDERED: APIX1TAB3 PO (13:20)
[2017-06-23] MEDS ORDERED: APIXABAN 2.5 MG TAB PO ONE (13:30)
--- NOTE | 2017-06-23 13:33 | EMERGENCY ROOM VISIT NOTE ---
History First contact with patient: 12:41 Chief Complaint: REFERRED BY DOCTOR Stated Complaint: SENT FROM ULTR History of Present Illness The patient is a 71 year old male who presents to the Emergency Room with complaints of left lower extremity swelling. The patient was sent from ultrasound with the findings. He has had swelling in his left leg for less than one week. He denies any recent trauma or surgeries. He denies chest pains or shortness of breath. He has not had recent fevers or illness. Review of Systems As above otherwise negative for 10 systems Past Medical/Surgical History Medical Problems: (1) Asthma (2) HTN (hypertension) (3) Migraine Surgical Problems: (1) H/O colonoscopy (2) H/O hand surgery (3) H/O sinus surgery (4) History of appendectomy (5) History of esophagogastroduodenoscopy (EGD) (6) Hx of tonsillectomy Family History FH: heart disease FATHER MOTHER FH: prostate cancer BROTHER BROTHER Stroke MOTHER Social History Smoking Status: Former Smoker Alcohol Use: occasionally Current/Historical Medications Scheduled Amlodipine (Norvasc), 5 MG PO QAM Apixaban (Eliquis), 5 MG PO BID Apixaban (Eliquis), 10 MG PO BID Carvedilol (Coreg), 12.5 MG PO BID Cetirizine (Zyrtec), 10 MG PO QAM Fluticasone Propionate (Flovent Hfa), 2 PUFFS INH BID Indapamide (Indapamide), 2.5 MG PO QAM Lisinopril (Zestril), 40 MG PO QAM Mometasone Furoate (Nasonex), 2 SPRAY VIC BID Pravastatin (Pravachol ), 20 MG PO QAM Scheduled PRN Albuterol Hfa (Ventolin Hfa), 2 PUFFS INH Q4 PRN for cough,wheeze,sob,prior to exer Sildenafil Citrate (Revatio), 3 TABS PO DAILY PRN for erectile dysfunction Sumatriptan Succinate (Imitrex), 100 MG PO UD PRN for Migraine Sumatriptan Succinate (Imitrex Statdose), 6 MG SQ UD PRN for Migraine Physical Exam Vital Signs Date Time Temp Pulse Resp B/P (MAP) Pulse Ox O2 Delivery O2 Flow Rate FiO2 06/23/17 13:00 36.7 78 18 163/105 96 Room Air Physical Exam CONSTITUTIONAL/VITAL SIGNS: Reviewed / noted above. GENERAL: Non-toxic in appearance. INTEGUMENTARY: Warm, dry, and [place]. HEAD: Normocephalic. EYES: without scleral icterus or trauma. ENT/OROPHARYNX: clear and moist. LYMPHADENOPATHY/NECK: Is supple without lymphadenopathy or meningismus. RESPIRATORY: Lungs clear and equal. CARDIOVASCULAR: Regular rate and rhythm. GI/ABDOMEN: Soft and nontender. No organomegaly or pulsatile mass. No rebound or guarding. Normal bowel sounds. EXTREMITIES: Warm and well perfused. The patient has left lower extremity edema without cyanosis or pallor. No obvious infection. BACK: No CVA tenderness. NEUROLOGICAL: Intact without focal deficits. PSYCHIATRIC: normal affect. MUSCULOSKELETAL: Normally developed with good muscle tone. TRIAGE NURSING DOCUMENTATION REVIEWED. Medical Decision & Procedures ER Provider Diagnostic Interpretation: ULTRASOUND LEFT LOWER EXTREMITY VENOUS CLINICAL HISTORY: Left lower extremity edema. COMPARISON STUDY: Bilateral lower extremity venous ultrasound dated 11/11/2014. TECHNIQUE: Real-time, grayscale, and color Doppler sonography of the deep veins of the left lower extremity was performed from the inguinal crease to the calf. Compression and augmentation were utilized. FINDINGS: There is extensive and nearly occlusive to occlusive deep venous thrombosis seen throughout the left lower extremity. This extends from the midportion of the superficial femoral vein into the popliteal vein. There is also likely thrombus in the calf within the peroneal vessels. The common femoral as well as the proximal portion of the superficial femoral vein are patent and normally compressible. The greater saphenous vein and the profunda femoris vein at the junction with the common femoral vein are clear. The anterior and posterior tibial veins in the calf appear clear. IMPRESSION: Extensive nearly occlusive to occlusive left lower extremity deep venous thrombosis as above. ED Course After examining the patient, he was started on Eliquis 10mg po. Medical Decision This is a 71-year-old male who presents to the ED with a chief complaint of left leg swelling and his extensive DVT on ultrasound. There is no clinical findings to suggest phlegmasia cerulea alba dolens. He does not have any chest pains or shortness of breath to suggest PE. He was started on Eliquis and was discharged home. He was told to return for sudden onset of chest pains, shortness of breath or other concerns. He was cautioned on use of the lower extremities and is to limit exercise and lower extremities until swelling and discomfort results. He was also cautioned on the use of anticoagulation is a relates to trauma and bleeding. Impression Primary Impression: DVT (deep venous thrombosis) Departure Information Prescriptions Apixaban (ELIQUIS) 5 Mg Tab 10 MG PO BID for 7 Days, #28 TAB Prov: José Manuel De Jesus D.O. 06/23/17 Apixaban (ELIQUIS) 5 Mg Tab 5 MG PO BID for 30 Days, #60 TAB Prov: José Manuel De Jesus D.O. 06/23/17 Referrals No Doctor, Assigned (PCP) Forms WORK / SCHOOL INSTRUCTIONS, HOME CARE DOCUMENTATION FORM, IMPORTANT VISIT INFORMATION Patient Instructions DVT, DVT Complications, [facility] Additional Instructions Apixaban 10 mg twice a day for 7 days followed by 5 mg twice a day for 7 days. Return to the emergency department for sudden chest pains, shortness of breath or other concerns. Follow-up with your doctor for further care and evaluation in 1-5 days. Return to the emergency department for worsening or new symptoms or any concerns. You have been examined and treated today on an emergency basis only. This is not a substitute for, or an effort to provide, complete comprehensive medical care. It is impossible to recognize and treat all injuries or illnesses in a single emergency department visit. It is therefore important that you follow up closely with your doctor. Call as soon as possible for an appointment. Avoid excessive exercise or use to the lower extremities until swelling and pain resolves.
[2017-06-23 13:51] VITALS: BP 175/115; PULSE 82; O2SAT 96
== END 2017-06-23 13:54 | disposition home or self-care (01) ==
LOC: C.EDB 12:37
DX: I82.402 Acute embolism and thrombosis of unspecified deep veins of left lower extremity (principal); I10 Essential (primary) hypertension; J45.909 Unspecified asthma, uncomplicated; Z87.891 Personal history of nicotine dependence; Z82.49 Family history of ischemic heart disease and other diseases of the circulatory system; Z80.42 Family history of malignant neoplasm of prostate; Z82.3 Family history of stroke

== ENCOUNTER → 2017-06-23 | Outpatient (CLI) | payer OTHER ==
[~2017-06-23] MED LIST changes: +APIX1TAB3 PO
--- NOTE | 2017-06-23 12:03 | DIAGNOSTIC IMAGING REPORT ---
ULTRASOUND LEFT LOWER EXTREMITY VENOUS CLINICAL HISTORY: Left lower extremity edema. COMPARISON STUDY: Bilateral lower extremity venous ultrasound dated 11/11/2014. TECHNIQUE: Real-time, grayscale, and color Doppler sonography of the deep veins of the left lower extremity was performed from the inguinal crease to the calf. Compression and augmentation were utilized. FINDINGS: There is extensive and nearly occlusive to occlusive deep venous thrombosis seen throughout the left lower extremity. This extends from the midportion of the superficial femoral vein into the popliteal vein. There is also likely thrombus in the calf within the peroneal vessels. The common femoral as well as the proximal portion of the superficial femoral vein are patent and normally compressible. The greater saphenous vein and the profunda femoris vein at the junction with the common femoral vein are clear. The anterior and posterior tibial veins in the calf appear clear. IMPRESSION: Extensive nearly occlusive to occlusive left lower extremity deep venous thrombosis as above. Electronically signed by: Jayson Huffman M.D. 06/23/2017 12:01 PM Dictated Date/Time: 06/23/2017 11:59 AM
== END | disposition home or self-care (01) ==
LOC: C.ULTR 11:09
PROVIDERS: ATTEND Physician Assistant
DX: I82.402 Acute embolism and thrombosis of unspecified deep veins of left lower extremity (principal)

== ENCOUNTER → 2017-08-04 | Outpatient (CLI) | payer OTHER | END | disposition home or self-care (01) | LOC: C.RDSM 08:15 | PROVIDERS: ATTEND Physical Medicine & Rehabilitation Sports Medicine | DX: Z96.652 Presence of left artificial knee joint (principal); M17.11 Unilateral primary osteoarthritis, right knee ==

== ENCOUNTER → 2017-10-16 | Outpatient (CLI) | payer OTHER ==
--- NOTE | 2017-10-16 10:20 | DIAGNOSTIC IMAGING REPORT ---
L VENOUS DOPP LOWER EXT UNILAT CLINICAL HISTORY: 72 years-old Male presenting with L LEG ACUTE DVT. TECHNIQUE: Real-time grayscale and color and spectral Doppler ultrasound imaging of the veins of the left lower extremity was performed. Compression and augmentation were also utilized. COMPARISON: 06/23/2017. FINDINGS: Left: Common femoral vein: Patent. Greater saphenous vein: Patent. Deep femoral vein: Patent. Femoral vein: Eccentric nonocclusive filling defect consistent with thrombus evident in the distal femoral vein. More superior portions of the vein are patent. Popliteal vein: Primarily eccentric nearly occlusive filling defect consistent with thrombus in the popliteal vein. Calf veins: Limited visualization. Other: None. IMPRESSION: Thrombus in the distal femoral vein and popliteal vein is slightly more limited distribution than on prior exam. The appearance is most consistent with chronic thrombus. No other findings to suggest a new acute deep venous thrombosis. Electronically signed by: Davis Candelaria M.D. 10/16/2017 10:19 AM Dictated Date/Time: 10/16/2017 10:16 AM
== END | disposition home or self-care (01) ==
LOC: C.ULTR 09:44
PROVIDERS: ATTEND Internal Medicine Hematology
DX: I82.412 Acute embolism and thrombosis of left femoral vein (principal); I82.432 Acute embolism and thrombosis of left popliteal vein

== ENCOUNTER 2019-12-30 09:57 | Inpatient (IN) ==
[2019-12-30] MEDS ORDERED: SODIUM CHLORIDE 0.9% 1000ML 1,000 ML IV ONE ×3 (10:26→11:49)
[2019-12-30 10:49] LABS: Basophils # (auto) 0.03 K/uL (0-0.2); Basophils % (auto) 0.4 %; Eosinophils # (auto) 0.19 K/uL (0-0.5); Eosinophils % (auto) 2.4 %; Hematocrit (blood only) 46.3 % (42-52); Immature Granulocytes # (auto) 0.09 K/uL (0.00-0.02); Immature Granulocytes % (auto) 1.1 %; Lymphocytes # (auto) 1.31 K/uL (1.2-3.4); Lymphocytes % (auto) 16.6 %; Mean Corpuscular Hemoglobin 31.4 pg (25-34); Mean Corpuscular Hgb Conc 34.6 g/dL (32-36); Mean Platelet Volume 11.4 fL (7.4-10.4); Monocytes # (auto) 0.68 K/uL (0.11-0.59); Monocytes % (auto) 8.6 %; Neutrophils # (auto) 5.57 K/uL (1.4-6.5); Neutrophils % (auto) 70.9 %; Platelet Count 144 K/uL (130-400); RDW Coefficient of Variation 14.2 % (11.5-14.5); RDW Standard Deviation 47.8 fL (36.4-46.3); Red Blood Count 5.09 M/uL (4.7-6.1); White Blood Count 7.87 K/uL (4.8-10.8)
--- NOTE | 2019-12-30 10:59 | XRay Report ---
XR chest 1V portable HISTORY: 74 years-old Male weakness acute weakness with low back pain COMPARISON: Chest radiograph 05/20/2016 TECHNIQUE: Portable AP view of the chest FINDINGS: Cardiac silhouette is mildly enlarged. The lungs are hypoinflated. Calcified plaque of the thoracic a ortic arch. Ill-defined opacity of the medial right lung apex is likely secondary to summation densit y. Minimal linear left basilar atelectasis. No pneumothorax, pleural effusion, overt pulmonary edema or airspace consolidation typical for pneumonia. Degenerative changes of the shoulders and spine. IMPRESSION: No acute process. ACT 112: Negative or not required by law. The above report was generated using voice recognition software. It may contain grammatical, syntax o r spelling errors. Electronically signed by: Aristeo Cruz M.D. 12/30/2019 10:57 AM
--- NOTE | 2019-12-30 11:06 | Emergency Department Note ---
History of Present Illness General Chief complaint: Dehydration Stated complaint: dehydrated, run lab work Time Seen by Provider: 12/30/19 10:15 Source: patient Mode of arrival: wheelchair Limitations: no limitations History of Present Illness Provider complaint: Dehydration Maximum Pain Intensity: 8 This is a 74-year-old male who presents to the ED with a chief complaint of dehydration. The patient was sent to the emergency department by Dr. Steve. He was seen by his PCP 1 hour ago. He was told to come to the emergency department for dehydration. The patient states that he has achiness in his muscles and in his entire body but mostly in his thighs, hips and shoulders. He states that he just finished a course of doxycycline 2 days ago for anaplasmosis. He was placed on that for 2 weeks. The patient also states that he developed a rash on his chest and extremities following the initiation of doxycycline. He has seen a sql ssis developer for this and was placed on some topic al creams. The patient states that he had a little diarrhea couple days ago but nothing over the past 24 hours. He denies any nausea or vomiting. No headaches. No shortness of breath. No chest pains. No abdominal pains. The patient's initial blood pressure here was low. The patient typically takes medication for high blood pressure. Home Medications Home Medications Medication Instructions Recorded Confirmed Type cetirizine 10 mg tablet PO tab 03/24/19 04/28/19 History econazole 1 % topical cream TOPICAL .APPLY SPARINGLY TO T #1 gm 03/24/19 04/28/19 History lisinopril 30 mg tablet PO tab 03/24/19 04/28/19 History mometasone 0.1 % topical ointment TOPICAL .APPLY TO AFFECTED AR gm 03/24/19 04/28/19 History mometasone 50 mcg/actuation nasal INTRANASAL gm 03/24/19 04/28/19 History spray oxybutynin chloride 5 mg 5 mg PO DAILY #90 tab 06/15/19 Rx tablet,extended release 24 hr Allergies Allergy/AdvReac Type Severity Reaction Status Date / Time No Known Allergies Allergy Verified 04/28/19 15:07 Past Med/Surg History Medical History Arthritis Asthma Gout High blood pressure High cholesterol Kidney stones, calcium oxalate Family History Brother Prostate cancer Father Hypertension Heart disease Social History Smoking Status: Former smoker Hx Alcohol Use: Yes Hx Substance Use: No Feels Safe at Home: Yes Review of Systems A total of 10 systems reviewed and were otherwise negative Physical Exam Vital Signs Vital Signs - 24 hr 12/30/19 10:04 12/30/19 10:22 12/30/19 10:23 Temperature 36.6 C Temperature Source Oral Oral Pulse Rate 83 76 Pulse Rate [Forehead] Respiratory Rate 20 20 Respiratory Effort / Characteristics Respiratory Depth Blood Pressure 51/40 L 70/60 L Blood Pressure [Right Arm] Blood Pressure Mean 43 63 Blood Pressure Mean [Right Arm] Pulse Oximetry 94 100 100 Oxygen Delivery Method Room Air Room Air Room Air Sepsis Recent Fever Within 48 Hours No No Sepsis New/Unexplained Change in Mental Status No N/A Sepsis Action Taken by Nursing No Action Required No Action Required 12/30/19 10:34 12/30/19 10:40 12/30/19 10:44 Temperature Temperature Source Pulse Rate Pulse Rate [Forehead] 72 72 68 Respiratory Rate 16 16 12 Respiratory Effort / Characteristics Respiratory Depth Blood Pressure Blood Pressure [Right Arm] 63/47 L 70/49 L 82/55 L Blood Pressure Mean Blood Pressure Mean [Right Arm] 52 56 64 Pulse Oximetry 100 100 100 Oxygen Delivery Method Room Air Room Air Room Air Sepsis Recent Fever Within 48 Hours Sepsis New/Unexplained Change in Mental Status Sepsis Action Taken by Nursing 12/30/19 10:54 12/30/19 11:00 12/30/19 11:03 Temperature Temperature Source Pulse Rate 69 66 Pulse Rate [Forehead] 68 64 Respiratory Rate 20 18 Respiratory Effort / Characteristics Non-Labored Respiratory Depth Normal Blood Pressure 85/58 L 90/55 L Blood Pressure [Right Arm] 85/58 L 90/55 L Blood Pressure Mean 65 63 Blood Pressure Mean [Right Arm] 67 66 Pulse Oximetry 100 100 Oxygen Delivery Method Room Air Room Air Sepsis Recent Fever Within 48 Hours Sepsis New/Unexplained Change in Mental Status Sepsis Action Taken by Nursing 12/30/19 11:11 12/30/19 11:15 12/30/19 11:24 Temperature 37.2 C Temperature Source Rectal Pulse Rate 68 70 Pulse Rate [Forehead] Respiratory Rate Respiratory Effort / Characteristics Respiratory Depth Blood Pressure 85/52 L 89/58 L Blood Pressure [Right Arm] Blood Pressure Mean 60 63 Blood Pressure Mean [Right Arm] Pulse Oximetry Oxygen Delivery Method Sepsis Recent Fever Within 48 Hours Sepsis New/Unexplained Change in Mental Status Sepsis Action Taken by Nursing 12/30/19 11:30 Temperature Temperature Source Pulse Rate 67 Pulse Rate [Forehead] Respiratory Rate 18 Respiratory Effort / Characteristics Respiratory Depth Blood Pressure 90/60 L Blood Pressure [Right Arm] Blood Pressure Mean 66 Blood Pressure Mean [Right Arm] Pulse Oximetry 96 Oxygen Delivery Method Room Air Sepsis Recent Fever Within 48 Hours Sepsis New/Unexplained Change in Mental Status Sepsis Action Taken by Nursing CONSTITUTIONAL/VITAL SIGNS: Reviewed / noted above. GENERAL: Non-toxic in appearance. INTEGUMENTARY: Warm, dry, and [place]. The patient has a vasculitic type rash on his chest and arms. Does not appear acute. HEAD: Normocephalic. EYES: without scleral icterus or trauma. ENT/OROPHARYNX: clear and moist. LYMPHADENOPATHY/NECK: Is supple without lymphadenopathy or meningismus. RESPIRATORY: Lungs clear and equal. CARDIOVASCULAR: Regular rate and rhythm. GI/ABDOMEN: Soft and nontender. No organomegaly or pulsatile mass. No rebound or guarding. Normal bowel sounds. EXTREMITIES: Warm and well perfused. BACK: No CVA tenderness. NEUROLOGICAL: Intact without focal deficits. PSYCHIATRIC: normal affect. MUSCULOSKELETAL: Normally developed with good muscle tone. TRIAGE NURSING DOCUMENTATION REVIEWED. Course Administered Medications Sodium Chloride (Nss 1000ml) 1,000 mls @ 999 mls/hr IV .Q1H1M ONE Stop: 12/30/19 12:15 Last Admin: 12/30/19 11:18 Dose: 999 mls/hr Documented by: [id number] Discontinued Medications Sodium Chloride (Nss 1000ml) 1,000 mls @ 999 mls/hr IV .Q1H1M ONE Stop: 12/30/19 11:26 Last Infusion: 12/30/19 11:31 Dose: 0 mls/hr Documented by: [id number] Admin: 12/30/19 10:30 Dose: 999 mls/hr Documented by: [id number] Critical Care Time Critical Care Time: Yes Total Critical Care Time: 35 I have personally spent 35 minutes of critical care time in the direct management of this patient. This includes bedside care, interpretation of diagnostic studies, and testing, discussion with consultants, patient, and family members, and other required patient management activities. This 35 minutes is in excess of all separately billable procedures. Medical Decision Making Differential Diagnosis Differential includes acute coronary syndrome, myocardial infarction, CVA, TIA, anemia, infection, pneumonia, UTI, pyelonephritis, poor nutrition, dehydration, electrolyte disturbance,hypoglycemia. Medical Records Attestation: I reviewed the patient's medical records. Home Medications Current Medication List: was personally reviewed by me Laboratory Data Attestation: I reviewed the patient's lab results. Result diagrams: 12/30/19 10:30 12/30/19 10:30 Lab Results 12/30/19 12/30/19 12/30/19 Range/Units 10:30 10:30 10:30 WBC 7.87 (4.8-10.8) K/uL RBC 5.09 (4.7-6.1) M/uL Hgb 16.0 (14.0-18.0) g/dL Hct 46.3 (42-52) % MCV 91.0 (80-100) fL MCH 31.4 (25-34) pg MCHC 34.6 (32-36) g/dL RDW Std Deviation 47.8 H (36.4-46.3) fL RDW Coeff of Hanh 14.2 (11.5-14.5) % Plt Count 144 (130-400) K/uL MPV 11.4 H (7.4-10.4) fL Immature Gran % (Auto) 1.1 % Neut % (Auto) 70.9 % Lymph % (Auto) 16.6 % [place] % (Auto) 8.6 % Eos % (Auto) 2.4 % Baso % (Auto) 0.4 % Neut # (Auto) 5.57 (1.4-6.5) K/uL Lymph # (Auto) 1.31 (1.2-3.4) K/uL [place] # (Auto) 0.68 H (0.11-0.59) K/uL Eos # (Auto) 0.19 (0-0.5) K/uL Baso # (Auto) 0.03 (0-0.2) K/uL Immature Gran # (Auto) 0.09 H (0.00-0.02) K/uL Sodium 136 (136-145) mmol/L Potassium 4.1 (3.5-5.1) mmol/L Chloride 103 (98-107) mmol/L Carbon Dioxide 25 (21-32) mmol/L Anion Gap 8.0 (3-11) BUN 48 H (7-18) mg/dl Creatinine 1.52 H (0.6-1.4) mg/dl Est Cr Clr Drug Dosing 47.4 ml/min Est GFR ( Amer) 51.2 Est GFR (Non-Af Amer) 44.2 BUN/Creatinine Ratio 31.6 H (10-20) Glucose 121 H (70-99) mg/dl Lactate 2.2 H* (0.4-2.0) mmol/L Calcium 8.5 (8.5-10.1) mg/dl Total Bilirubin 0.7 (0.2-1) mg/dl AST 340 H (15-37) U/L ALT 106 H (12-78) U/L Alkaline Phosphatase 74 (45-117) U/L Total Creatine Kinase 3822 H (39-308) U/L Troponin I 0.028 (0-0.045) ng/ml Total Protein 6.3 L (6.4-8.2) gm/dl Albumin 2.6 L (3.4-5.0) gm/dl Globulin 3.7 (2.5-4.0) gm/dl Albumin/Globulin Ratio 0.7 L (0.9-2) TSH 3.510 (0.300-4.500) uIu/ml Imaging Data Radiologist's Impression: XR chest 1V portable HISTORY: 74 years-old Male weakness acute weakness with low back pain COMPARISON: Chest radiograph 05/20/2016 TECHNIQUE: Portable AP view of the chest FINDINGS: Cardiac silhouette is mildly enlarged. The lungs are hypoinflated. Calcified plaque of the thoracic aortic arch. Ill-defined opacity of the medial right lung apex is likely secondary to summation density. Minimal linear left basilar atelectasis. No pneumothorax, pleural effusion, overt pulmonary edema or airspace consolidation typical for pneumonia. Degenerative changes of the shoulders and spine. IMPRESSION: No acute process. ECG Data Attestation: I personally reviewed and interpreted this ECG as follows: Indication: + weakness Rate (beats per minute): 75 Rhythm: + normal sinus ECG Intervals/blocks: + Normal QT-c ECG ST segments: no ST elevation ECG Findings: no PVCs Blood Pressure Blood Pressure Findings: Low blood pressure MDM Narrative This is a 74-year-old male who presents to the ED with a chief complaint of dehydration. The patient was sent to the emergency department by Dr. Steve. He was seen by his PCP 1 hour ago. He was told to come to the emergency department for dehydration. The patient states that he has achiness in his muscles and in his entire body but mostly in his thighs, hips and shoulders. He states that he just finished a course of doxycycline 2 days ago for anaplasmosis. He was placed on that for 2 weeks. The patient also states that he developed a rash on his chest and extremities following the initiation of doxycycline. He has seen a sql ssis developer for this and was placed on some topical creams. The patient states that he had a little diarrhea couple days ago but nothing over the past 24 hours. He denies any nausea or vomiting. No headaches. No shortness of breath. No chest pains. No abdominal pains. The patient's initial blood pressure here was low. The patient's vital signs reveal hypotension. He does have a vasculitic type rash that appears somewhat subacute on the chest and arms. The patient is otherwise in no distress. The patient's lab studies reveal a normal CBC. His chemistry panel shows a BUN of 48 and a creatinine of 1.52. His lactate level slightly elevated 2.2. AST and ALT are slightly elevated. CK is 3822. TSH is normal. Chest x-ray did not show acute process. Twelve-lead EKG showed a normal sinus rhythm at a rate of 75. Because of the patient's somewhat persistent hypotension as well as his muscle pains and findings suggesting rhabdo myelitis/myositis and dehydration, the patient will be seen by the hospitalist for further inpatient evaluation and care. The patient is reportedly on a statin which may be causing his myositis. Impression & Plan Myositis, Rhabdomyolysis, Acute dehydration, Acute hypotension Discharge Plan Visit Data Chief Complaint: Dehydration Stated Complaint: dehydrated, run lab work ED Provider: José Manuel De Jesus Discharge Problem: Myositis, Rhabdomyolysis, Acute dehydration, Acute hypotension Patient Disposition: Being Evaluated by Hospitalist Forms Stand Alone Forms: [email or web address] Prescriptions Prescriptions: No Action oxybutynin chloride 5 mg tablet extended release 24hr 5 mg PO DAILY Qty: 90 RF: 4 cetirizine 10 mg tablet PO RF: 0 econazole 1 % cream topical .APPLY SPARINGLY TO T Qty: 1 RF: 0 lisinopril 30 mg tablet PO RF: 0 mometasone 50 mcg/actuation spray,non-aerosol intranasal RF: 0 mometasone 0.1 % ointment topical .APPLY TO AFFECTED AR RF: 0 Referrals Referrals: Adriano Cali MD [Primary Care Provider] - Discharge Problem: Myositis Qualifiers: Myositis type: unspecified type Myositis location: multiple sites Qualified Code(s): M60.9 - Myositis, unspecified Rhabdomyolysis Qualifiers: Rhabdomyolysis type: non-traumatic Qualified Code(s): M62.82 - Rhabdomyolysis
[2019-12-30 11:16] LABS: Albumin Level 2.6 gm/dl (3.4-5.0); BUN Creatinine Ratio 31.6 (10-20); Calcium 8.5 mg/dl (8.5-10.1); Creatinine Clr Calc Pharmacy 47.4 ml/min; Est GFR (African American) 51.2; Est GFR (Non-African American) 44.2; Potassium 4.1 mmol/L (3.5-5.1)
[2019-12-30 11:31] LABS: Albumin Globulin Ratio 0.7 (0.9-2); Bilirubin,Total 0.7 mg/dl (0.2-1); Globulin 3.7 gm/dl (2.5-4.0); Thyroid Stimulating Hormone 3.51 uIu/ml (0.300-4.500); Total Protein 6.3 gm/dl (6.4-8.2); Troponin I 0.028 ng/ml (0-0.045)
[2019-12-30] MEDS ORDERED: ONDANSETRON INJ 2 MG/ML 2 ML VIAL IV PRN (11:51)
[2019-12-30] MEDS ORDERED: NITROGLYCERIN SL 0.4 MG/TAB TAB SL PRN (11:51)
[2019-12-30] MEDS ORDERED: cefTRIAXone SODIUM 1,000 MG in DEXTROSE 5% 50 ML IV SCH (12:00)
[2019-12-30 12:48] LABS: Appearance Urine Clear (Clear); Bilirubin Urine Negative (Negative); Blood Urine Negative (Negative); Color Urine Yellow; Glucose Urine UA Negative (Negative); Ketones Urine Negative (Negative); Leukocyte Esterase Urine Negative (Negative); Nitrite Urine Negative (Negative); Protein Urine Negative (Negative); Specific Gravity Urine 1.013 (1.000-1.030); Urobilinogen Urine Negative (Negative)
--- NOTE | 2019-12-30 12:52 | History & Physical Report ---
Date of Service December 30, 2019 Assessment & Plan (1) Hypovolemic shock: (2) Hypotension due to hypovolemia: (3) LATRELL (acute kidney injury): (4) Rhabdomyolysis: (5) Lactic acid acidosis: (6) Elevated transaminase level: (7) Anaplasmosis: (8) PAF (paroxysmal atrial fibrillation): (9) HTN (hypertension): (10) Asthma: (11) DVT prophylaxis: This is a 74-year-old male who has significant past medical history of HTN, HLD, PAF anticoagulated on Eliquis, history of DVT/PE, Asthma, tophaceous gout, BPH, aortic valve stenosis, mitral valve stenosis who presents to ED secondary to feeling dehydrated, ill feeling and muscle pain x10 days. Please refer to attending communication note for details regarding details of assessment and plan. History of Present Illness Chief Complaint: ill feeling, dehydrated and muscle pain x 10 days. Primary Care Provider: Adriano Cali MD This is a 74-year-old male who has significant past medical history of HTN, HLD, PAF anticoagulated on Eliquis, history of DVT/PE, Asthma, tophaceous gout, BPH, aortic valve stenosis, mitral valve stenosis who presents to ED secondary to feeling dehydrated, ill feeling and muscle pain x10 days. Of significance patient's illness initially started at the beginning of November after he had a shingles vaccination on 11/22. He developed intermittent off-and-on fevers, chills, weakness and decreased appetite. He had a noted tick bite 2 weeks ago and requested Lyme testing. This was negative. He was also tested for COVID which was negative. He was reevaluated by PCP on 12/13 and underwent further testing with chest x-ray and Anaplasma. Chest x-ray was negative and Anaplasma was positive. He was placed on doxycycline 100 mg twice daily for 14 days and completed this course 2 days ago. Approximately 2 to 3 days into the doxycycline course he developed a decreased appetite, decreased taste and smell and slowly developed muscle weakness and pain. Muscle pain is to the point, "I cannot even stand up or sit up in bed without severe pain."Shortly after starting doxycycline he also developed a rash on his chest, anterior proximal thighs and back. He was seen and evaluated by dermatology and placed on clobetasol.Furthermore he was also undergoing work-up by cardiology and underwent 14-day monitor and storage bin tender. This did reveal 7% paroxysmal A. fib burden, which is new for him. His Eliquis was increased from 2.5 mg twice daily to 5 mg twice daily. He was also restarted on verapamil which he previously had taken in the past. He did not start this as he was to begin it today. He did take all of his morning blood pressure pills including lisinopril, indapamide, Coreg as well as Eliquis. He has been compliant in taking his pravastatin as well. He denies any recent fever, chills, sweats, lightheadedness, dizziness, presyncope, chest pain, shortness breath, cough, palpitations, nausea, vomiting, abdominal pain, diarrhea, melena, medication. He denies any change in urinary habits. On arrival patient was significantly hypertensive with systolic blood pressures in the 50s. He had mild improvement after 2 L of IVF resulting in systolic BP in low 100s. Lab work was notable for rhabdomyolysis with CK 3822, elevated BUN/creatinine 40 and 1.52, lactic acid 2.2, AST 340, ALT 106, troponin 0.028 TSH WNL. Chest x- ray unremarkable. Admitting diagnosis is Acute Rhabdomyolysis in setting of poor p.o. intake during acute illness and statin use, LATRELL, lactic acidosis, elevated transaminitis. Allergies Allergy/AdvReac Type Severity Reaction Status Date / Time doxycycline AdvReac Severe Rash Verified 12/30/19 12:34 Home Medications Home Medications Medication Instructions Recorded Confirmed Type Lactobacillus acidophilus 1,000 mmu cells PO DAILY 12/30/19 12/30/19 History [Acidophilus] albuterol sulfate 1 inh INHALATION QID PRN 12/30/19 12/30/19 History allopurinol 200 mg PO BID 12/30/19 12/30/19 History apixaban 5 mg PO BID 12/30/19 12/30/19 History budesonide-formoterol [Symbicort] 2 puff INHALATION Q12H 12/30/19 12/30/19 History carvedilol 12.5 mg PO Q12H 12/30/19 12/30/19 History cetirizine 10 mg PO DAILY 12/30/19 12/30/19 History chlorhexidine gluconate 1 ml BUCCAL DAILY PRN 12/30/19 12/30/19 History clobetasol [Temovate] 1 applic TOPICAL BID 12/30/19 12/30/19 History indapamide 2.5 mg PO QAM 12/30/19 12/30/19 History lisinopril 40 mg PO DAILY 12/30/19 12/30/19 History mometasone [Nasonex] 2 spray INTRANASAL DAILY 12/30/19 12/30/19 History omega [id number]-fish oil [Fish Oil] 1 cap PO DAILY 12/30/19 12/30/19 History oxybutynin chloride 5 mg PO DAILY 12/30/19 12/30/19 History pravastatin 20 mg PO HS 12/30/19 12/30/19 History verapamil 40 mg PO DAILY 12/30/19 12/30/19 History Past Med/Surg History Medical History (Updated 12/30/19 @ 13:25 by Kelly Balderas PA-C) Aortic stenosis Arthritis Asthma (Chronic) Asthma BPH w urinary obs/LUTS Gout High blood pressure High cholesterol History of DVT (deep vein thrombosis) HTN (hypertension) (Chronic) Kidney stones, calcium oxalate Mitral stenosis PAF (paroxysmal atrial fibrillation) Surgical History (Updated 12/30/19 @ 12:58 by Kelly Balderas PA-C) H/O colonoscopy (Inactive) H/O hand surgery (Inactive) H/O sinus surgery (Inactive) History of appendectomy (Inactive) History of esophagogastroduodenoscopy (EGD) (Inactive) History of left knee replacement History of Letha fundoplication Hx of tonsillectomy (Inactive) Family History Brother Prostate cancer Father Hypertension Heart disease Social History (Updated 12/30/19 @ 13:14 by Kelly Balderas PA-C) Smoking Status: Former smoker Tobacco Type: Cigarettes packs per day: 1; Years Smoked: 20; Cigarettes Per Day: 20; Hx Alcohol Use: Yes Hx Substance Use: No Preferred Language: Brazilian Communication Ability: Effective Wireless Network Engineer Required: No Beliefs That Will Affect Care: None marital status: Current Living Situation: Spouse Other Information That Helps Us Care for You: No Feels Safe at Home: Yes Safety Concerns: Feels Safe At This Time Review of Systems Review of Systems: All systems reviewed & are unremarkable except as noted in HPI & below Physical Exam Physical Exam: Constitutional: WD/WN, acute ill appearing, vitals as above, NAD, lying in bed, pleasant, conversing easily Head: Normocephalic, Atraumatic Eyes: PERRL, conjunctivae normal, anicteric sclerae ENMT: external ear and nose normal, oropharynx normal dry mucous membranes Neck: trachea midline, no thyromegaly normal visual inspection Respiratory: normal respiratory effort, lungs clear to auscultation, no wheeze, rales, rhonchi. Normal insp/exp effort, no accessory muscle use Cardiovascular: RRR, 2/6 BRUCE noted LCW, no edema Vessels: no JVD or carotid bruit Chest: normal inspection of chest Abdomen: normal bowel sounds, soft, nontender, no hepatosplenomegaly Musculoskeletal: no cyanosis or clubbing, extremities motor strength 5/5, +pain to palpation to b/l upper/lower ext muscle bodies Skin: erythematous rash on b/l prox upper ext, face and anterior chest wall, no rashes, warm and dry moderate turgor Neurologic: PERRL, EOMI, accommodation nl, no face palsy, no dysarthria CN's II-XI intact bilaterally and moves all extremities Psychiatric: A+Ox3, euthymic affect Lymphatic: no cervical or axillary lymphadenopathy : deferred Results & Data Results & Data ([facility]) Vital Signs (Past 12 Hours) Vital Signs Temp Pulse Pulse Resp BP BP Pulse Ox 12/30/19 12:00 74 101/67 12/30/19 11:49 76 106/57 L 12/30/19 11:46 74 78/67 L 12/30/19 11:45 71 12/30/19 11:30 67 18 90/60 L 96 12/30/19 11:24 37.2 C 12/30/19 11:15 70 89/58 L 12/30/19 11:11 68 85/52 L 12/30/19 11:03 64 18 90/55 L 100 12/30/19 11:00 66 90/55 L 12/30/19 10:54 69 68 20 85/58 L 85/58 L 100 12/30/19 10:44 68 12 82/55 L 100 12/30/19 10:40 72 16 70/49 L 100 12/30/19 10:34 72 16 63/47 L 100 12/30/19 10:23 76 20 70/60 L 100 12/30/19 10:22 100 12/30/19 10:04 36.6 C 83 20 51/40 L 94 Laboratory Results Short CBC 12/30/19 12/30/19 12/30/19 Range/Units 10:30 10:30 10:30 WBC 7.87 (4.8-10.8) K/uL Hgb 16.0 (14.0-18.0) g/dL Hct 46.3 (42-52) % Plt Count 144 (130-400) K/uL Creatinine 1.52 H (0.6-1.4) mg/dl Lactate 2.2 H* (0.4-2.0) mmol/L BMP 12/30/19 10:30 Sodium 136 Potassium 4.1 Chloride 103 Carbon Dioxide 25 BUN 48 H Creatinine 1.52 H Glucose 121 H Calcium 8.5 Cardiac Enzymes 12/30/19 Range/Units 10:30 Total Creatine Kinase 3822 H (39-308) U/L Troponin I 0.028 (0-0.045) ng/ml Liver Function 12/30/19 Range/Units 10:30 Total Bilirubin 0.7 (0.2-1) mg/dl AST 340 H (15-37) U/L ALT 106 H (12-78) U/L Alkaline Phosphatase 74 (45-117) U/L Albumin 2.6 L (3.4-5.0) gm/dl Urine 12/30/19 Range/Units 12:40 Urine Color Yellow Urine Appearance Clear (Clear) Urine pH 6.0 (4.5-7.5) Ur Specific Sundance 1.013 (1.000-1.030) Urine Protein Negative (Negative) Urine Glucose (UA) Negative (Negative) Diagnostic Findings CXR:IMPRESSION: No acute process. Medications Administered Short CBC 12/30/19 Range/Units 10:30 WBC 7.87 (4.8-10.8) K/uL Hgb 16.0 (14.0-18.0) g/dL Hct 46.3 (42-52) % Plt Count 144 (130-400) K/uL BMP 12/30/19 10:30 Sodium 136 Potassium 4.1 Chloride 103 Carbon Dioxide 25 BUN 48 H Creatinine 1.52 H Glucose 121 H Calcium 8.5 Cardiac Enzymes 12/30/19 Range/Units 10:30 Total Creatine Kinase 3822 H (39-308) U/L Troponin I 0.028 (0-0.045) ng/ml Liver Function 12/30/19 Range/Units 10:30 Total Bilirubin 0.7 (0.2-1) mg/dl AST 340 H (15-37) U/L ALT 106 H (12-78) U/L Alkaline Phosphatase 74 (45-117) U/L Albumin 2.6 L (3.4-5.0) gm/dl Urine 12/30/19 Range/Units 12:40 Urine Color Yellow Urine Appearance Clear (Clear) Urine pH 6.0 (4.5-7.5) Ur Specific Sundance 1.013 (1.000-1.030) Urine Protein Negative (Negative) Urine Glucose (UA) Negative (Negative) ECG Rate (beats per minute): 75 Rhythm: normal sinus Code Status & VTE Plan Code Status Full Code VTE Prophylaxis Plan VTE Prophylaxis will be ordered: Yes Supervising Physician Co-Signing Physician Notes Date of Service: December 30, 2019 Attending addendum: Patient seen and examined, labs and images reviewed, care coordinated with David Juárez PA-C This is a 74-year-old male with history of hypertension, paroxysmal A. fib, was diagnosed with anaplasmosis approximately 2 weeks ago, Completed 2 weeks treatment of p.o. doxycycline, last dose was 2 days ago During the past 2 weeks patient reports of generalized rash with itching, was seen at dermatology, was diagnosed with allergic reaction, and steroid ointment was prescribed, Patient reports of muscle ache pain generalized fatigue very poor appetite, Has not been able to ambulate due to severe muscle weakness and pain No report of fever or chills (patient did not had fever episodes 4 weeks back when diagnosed with anaplasmosis) On presentation patient was found to be severely hypotensive systolic/initial blood pressure recorded in the ER is BP 50/41 Patient was given to liter of IV fluid bolus Repeat blood pressure gradually improved above 90s Patient remained awake and alert and oriented able to give detailed history Lab finding reveals normal white count, normal platelet count, elevated AST ALT alkaline phosphatase, lactic acid elevated 2.2, acute renal failure with creatinine 1.5(elevated from baseline) Rhabdomyolysis with CK level more than 3000 Chest x-ray no sign of infection Physical exam: Detail as per Kelly Juárez PA-C Brief: General: Appears to be clinically dry, diffuse generalized erythematous rash extending forearm head to torso HEENT: Dry oral mucosa Heart: Regular S1 and S2, no lower extremity edema Lungs: Clear to auscultate Abdomen: Soft nontender Extremity: Muscle tenderness on extremities on palpation Skin:Diffuse erythematous rash on extremities/torso/face and scalp Neuro: Alert awake oriented x3, no focal deficit Assessment and plan: Severe dehydration/with hypotensive shock: Patient presents with systolic blood pressure in 50s Responded to IV fluid bolus Last BP shows 101/67 Mild elevation of lactic acid 2.2: Possible secondary to tissue hypoperfusion No evidence of infection or sepsis appreciated so far Possible dehydration due to lack of appetite, very poor p.o. intake in last 2 weeks while being on doxycycline Patient was also on multiple diuretics, and antihypertensive meds Patient will be admitted to PCU telemetry Continue IV fluid resuscitation Maintain map above 65/repeat lactic acid ordered in 4 hours Monitor intake and output Hold all hypertensives and diuretics History of paroxysmal A. fib: Appears to be rate controlled, sinus Hold beta-johnnie, and calcium channel johnnie-due to profound hypotension Continue Eliquis Recent history of anaplasmosis Patient completed 2 weeks of p.o. doxycycline Ordered for empiric IV Rocephin-DC antibiotic in 24-48 hours if no evidence of infection noted Adverse drug reaction/drug allergy Patient reports of severe generalized rash with photosensitivity after starting on doxycycline Symptom got worse progressively With a very poor appetite, muscle aches and pains, generalized weakness and fatigue Report of significant weight loss in past 2 weeks Doxycycline added to patient's allergy list Last dose of doxycycline 2 days back Continue with IV fluid resuscitation, monitor PRN Benadryl ordered for itching/rash Elevated transaminases: Possibly associated with rhabdomyolysis? Doubt secondary to anaplasmosis as patient completed antibiotic course Follow LFTs, hold statin, right upper quadrant ultrasound ordered Rhabdomyolysis: Possible secondary to severe dehydration Hold statin, ordered for IV fluid resuscitation Follow labs Acute renal failure: Creatinine 1.5, due to rhabdomyolysis seizure dehydration, hypotension IV fluids resuscitation as outlined above Follow labs avoid diuretics, NSAIDs, contrast studies Status: Full code DVT prophylaxis continue Eliquis Please refer to further documentation by Kelly Juárez PA-C for discussion of other chronic issues Judy Wade MD (1) Rhabdomyolysis Rhabdomyolysis type: non-traumatic Qualified Code(s): M62.82 - Rhabdomyolysis
[2019-12-30] MEDS ORDERED: CHLORHEXIDINE GLUCONATE 0.12% 480 ML MT PRN (13:04)
[2019-12-30] MEDS ORDERED: ALBUTEROL HFA 8 GM INHALER INH PRN (13:04)
[2019-12-30] MEDS: SODIUM CHLORIDE 0.9% 1000ML 1,000 ML IV SCH ×2 (14:34→21:13)
--- NOTE | 2019-12-30 15:59 | Ultrasound Report ---
ULTRASOUND RIGHT UPPER QUADRANT ABDOMEN CLINICAL HISTORY: Elevated hepatic transaminases. COMPARISON STUDY: No priors. TECHNIQUE: Real-time, grayscale, and color flow sonography of the right upper quadrant of the abdomen was performed. Images are reviewed in the transverse and longitudinal planes. FINDINGS: Liver: The liver is normal in size and demonstrates heterogeneously increased echotexture. Question m ild nodularity of the surface contour. There is no intrahepatic biliary ductal dilatation. The main p ortal vein is patent. Gallbladder: The gallbladder is normal in appearance. No gallstones are identified. There is no gallb ladder wall thickening or pericholecystic fluid. A sonographic Cortez's sign is reportedly absent. Th e common bile duct measures up to 0.3 cm in diameter. Pancreas: Not visualized due to overlying bowel gas. Right kidney: Survey images of the right kidney demonstrate mild cortical atrophy. Echotexture is nor mal. There is no hydronephrosis. Ascites: None. IMPRESSION: 1. Hepatic echotexture is heterogeneously increased suggesting steatosis. 2. Question nodularity of the hepatic surface contour. This could represent early change of cirrhosis . 3. No gallstones are identified. ACT 112: Negative or not required by law. Electronically signed by: Jayson Huffman M.D. 12/30/2019 3:58 PM
[2019-12-30 17:15] LABS: BUN Creatinine Ratio 39.5 (10-20); Creatinine Clr Calc Pharmacy 65.1 ml/min; Est GFR (African American) 74.9; Est GFR (Non-African American) 64.6; Potassium 3.7 mmol/L (3.5-5.1)
--- NOTE | 2019-12-30 17:33 | Electrocardiogram Report ---
Test Reason : Blood Pressure : / mmHG Vent. Rate : 075 BPM Atrial Rate : 075 BPM P-R Int : 162 ms QRS Dur : 086 ms QT Int : 400 ms P-R-T Axes : 011 005 -14 degrees QTc Int : 446 ms Normal sinus rhythm Inferior infarct , age undetermined Abnormal ECG When compared with ECG of 21-MAY-2016 08:58, Inferior infarct is now Present Nonspecific T wave abnormality no longer evident in Lateral leads Confirmed by Liborio Sánchez ([id number]) on 12/30/2019 5:32:38 PM Referred By: Alex Steve Confirmed By:Jesus Sánchez
--- NOTE | 2019-12-30 18:37 | Communication Note ---
Date of Service: December 30, 2019 Attending addendum: 4:46 PM labs reviewed: Creatinine normalized/with resolution of acute renal failure Lactic acid remains elevated from 2.22.7, SBP in low 100s Mild improvement of CPK We will continue IV fluids NSS at 125 mL/h Repeat lactic acid in 4 hours And continue to monitor every 4 hours till normalized Judy Wade MD
[2019-12-30] MEDS ORDERED: SODIUM CHLORIDE 0.9% 1000ML 250 ML IV ONE (20:28)
[2019-12-30] MEDS ORDERED: CLOBETASOL TOP SCH (21:00)
[2019-12-30] MEDS: allopurinoL 100 MG TAB PO SCH (21:06)
[2019-12-30] MEDS: APIXABAN 5 MG TABLET PO SCH (21:07)
[2019-12-30] MEDS: CLOBETASOL PROPIONATE 0.05% EXT SCH (21:23)
[2019-12-31] MEDS: SODIUM CHLORIDE 0.9% 1000ML 1,000 ML IV SCH ×3 (05:37→21:47)
[2019-12-31 06:36] LABS: Basophils # (auto) 0.02 K/uL (0-0.2); Basophils % (auto) 0.3 %; Eosinophils # (auto) 0.16 K/uL (0-0.5); Eosinophils % (auto) 2.6 %; Hemoglobin 14.3 g/dL (14.0-18.0); Immature Granulocytes # (auto) 0.05 K/uL (0.00-0.02); Immature Granulocytes % (auto) 0.8 %; Lymphocytes # (auto) 1.09 K/uL (1.2-3.4); Lymphocytes % (auto) 17.8 %; Mean Corpuscular Hemoglobin 31.6 pg (25-34); Mean Corpuscular Hgb Conc 34.9 g/dL (32-36); Mean Corpuscular Volume 90.5 fL (80-100); Mean Platelet Volume 11.3 fL (7.4-10.4); Monocytes # (auto) 0.73 K/uL (0.11-0.59); Monocytes % (auto) 11.9 %; Neutrophils # (auto) 4.06 K/uL (1.4-6.5); Neutrophils % (auto) 66.6 %; Platelet Count 111 K/uL (130-400); RDW Coefficient of Variation 14.4 % (11.5-14.5); RDW Standard Deviation 47.8 fL (36.4-46.3); Red Blood Count 4.53 M/uL (4.7-6.1); White Blood Count 6.11 K/uL (4.8-10.8)
[2019-12-31 06:52] LABS: BUN Creatinine Ratio 43.5 (10-20); Calcium 7.4 mg/dl (8.5-10.1); Creatinine Clr Calc Pharmacy 81.5 ml/min; Est GFR (African American) 96.9; Est GFR (Non-African American) 83.6; Potassium 3.5 mmol/L (3.5-5.1)
[2019-12-31 07:06] LABS: Albumin Globulin Ratio 0.7 (0.9-2); Bilirubin,Total 0.5 mg/dl (0.2-1)
[2019-12-31] MEDS: FLUTICASONE/VILANTEROL 100/25MCG 14 PUFFS/INHALER INH SCH (09:01)
[2019-12-31] MEDS: CLOBETASOL PROPIONATE 0.05% EXT SCH ×2 (09:02→20:09)
[2019-12-31] MEDS: FLUTICASONE PROPIONATE NA SPR 16 GM BTL SCH (09:05)
[2019-12-31] MEDS: CETIRIZINE HCL 10 MG TABLET PO SCH (09:06)
[2019-12-31] MEDS: APIXABAN 5 MG TABLET PO SCH ×2 (09:06→20:10)
[2019-12-31] MEDS: allopurinoL 100 MG TAB PO SCH ×2 (09:06→20:10)
[2019-12-31 11:27] LABS: Hepatitis B Surface Antigen Neg (Neg)
[2019-12-31 11:56] LABS: Hepatitis C IgG 13Yrs+Old_Rflx Neg (Neg)
[2019-12-31] MEDS: cefTRIAXone SODIUM 2,000 MG in DEXTROSE 5% 50 ML IV SCH (12:45)
[2019-12-31] MEDS: OXYBUTYNIN CHLORIDE 5 MG TAB PO SCH (12:45)
[2019-12-31] MEDS: carvediloL 12.5 MG TAB PO SCH ×2 (12:45→20:10)
--- NOTE | 2019-12-31 14:20 | Hospitalist Progress Note ---
Date of Service December 31, 2019 Assessment & Plan (1) Hypovolemic shock: He was sent in from the PCPs office with hypotension and generalized aches and pain mostly involving shoulder and pelvic girdles for the last 10 days He was noted to be hypotensive with a blood pressure of 51/40 at presentation Likely cause of hypotension is hypovolemia secondary to dehydration He has not been eating or drinking reasonably of the last 10 days or so and finished a 14 days course of doxycycline for anaplasmosis He has been getting adequate amount of intravenous fluid and the blood pressure is improving (2) Polymyositis-dermatomyositis: Has been complaining of pain and weakness involving shoulder and pelvic girdle is mainly for the last 1 week or more Complains to be stiffness as well Has had rash maculopapular mostly generalized but not typical for de rmatomyositis Elevated CK without any increasing ESR and/or CRP We will send anti-Bebe 1 antibody We will start prednisone following ruling out of hepatitis Will need outpatient rheumatology evaluation (3) Elevated liver enzymes: Noted to have elevated liver enzymes up around 250s with more AST elevation than ALT Normal liver function test noted in [facility] on 08 December Anaplasmosis can cause elevated liver enzymes and doxycycline toxicity can be an issue as well Elevated liver enzymes could be secondary to hypotensive shock as well Will get hepatitis panel to rule out any acute hepatitis Could be secondary to possible dermatomyositis/polymyositis Monitor LFTs and start prednisone after ruling out hepatitis Generalized maculopapular rash Could be secondary to doxycycline and photosensitivity Was evaluated by flux mixer The rash has been fading away Not any typical rash of dermatomyositis (4) Hypotension due to hypovolemia: As above (5) LATRELL (acute kidney injury): Noted to have acute kidney injury with dehydration Received intravenous fluid and the kidney function has been improving We will monitor renal function (6) Rhabdomyolysis: Noted to have very high CK of more than 3000 Could be secondary to dermatomyositis Myopathy associated with weakness and dehydration and could be secondary to doxy as well Will need intravenous fluid to improve kidney function Monitor CK (7) Lactic acid acidosis: Likely secondary to hypotension doubt any infection (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 following a tick bite about 1 week before that No history of Lyme disease Received doxycycline for 14 days (9) HTN (hypertension): Noted to hypotension on admission (10) PAF (paroxysmal atrial fibrillation): Continue Eliquis (11) Asthma: Stable (12) DVT prophylaxis: On Eliquis Admission and Anticipated Discharge Date Admission Date: December 30, 2019 Subjective The patient was seen and examined in telemetry unit 74-year-old male with significant past medical history of hypertension, hyperlipidemia, PAF anticoagulated with Eliquis with history of DVT/PE, asthma, tophaceous gout, aortic valve stenosis was admitted yesterday with hypotensive shock with history of ill feeling and muscle pain for about 10 days. He still feels tired and complains of muscle pain and stiffness mostly pelvic and shoulder girdles Denies any fever and/or chills, no nausea and/or vomiting Denies any chest pain and/or palpitation Review of Systems Review of Systems: All systems reviewed and are unremarkable except as noted below Constitutional: + body aches, + fatigue and + weakness Musculoskeletal: + stiffness (Involving pelvic and shoulder girdles), + myalgia and + muscle weakness; no muscle atrophy Physical Exam Physical Exam: Lying in bed with anxiety and moderate distress Constitutional: well developed, well nourished, + acute distress, + ill appearing and + morbidly obese Eyes: PERRL, conjunctivae normal, anicteric sclerae ENMT: external ear and nose normal, oropharynx normal Neck: trachea midline, no thyromegaly Respiratory: + respiratory distress (Minimal shortness of breath at rest) Auscultation: lungs clear to auscultation bilaterally Cardiovascular: Rate/Rhythm: regular rate and regular rhythm Heart Sounds: + murmur (2/6 systolic murmur over aortic area and precordium) Gastrointestinal (Abdomen): Inspection/Auscultation: abdomen normal to inspection and normal bowel sounds; abdomen not distended Percussion/Palpat ion: abdomen soft; abdomen nontender Musculoskeletal: Extremities: no muscle atrophy Decreased range of motion with movement of shoulders and hip joints Neurologic: moves all extremities; no focal motor deficits Alert, awake and oriented x3 Lymphatic: no cervical or axillary lymphadenopathy Results & Data Results & Data ([facility]) Vital Signs (Past 12 Hours) Vital Signs Temp Pulse Pulse Resp BP Pulse Ox 12/31/19 11:13 36.6 C 85 18 90/62 L 95 12/31/19 08:00 78 12/31/19 07:08 36.5 C 81 19 107/72 93 12/31/19 04:30 36.5 C 79 18 100/67 92 Laboratory Results Short CBC 12/31/19 Range/Units 06:24 WBC 6.11 (4.8-10.8) K/uL Hgb 14.3 (14.0-18.0) g/dL Hct 41.0 L (42-52) % Plt Count 111 L (130-400) K/uL BMP 12/30/19 12/31/19 16:46 06:24 Sodium 138 141 Potassium 3.7 3.5 Chloride 109 H 112 H Carbon Dioxide 22 22 BUN 44 H 39 H Creatinine 1.11 D 0.89 Glucose 110 H 87 Calcium 8.0 L 7.4 L Cardiac Enzymes 12/30/19 12/31/19 Range/Units 16:46 06:24 Total Creatine Kinase 3423 H 2717 H (39-308) U/L Liver Function 12/31/19 Range/Units 06:24 Total Bilirubin 0.5 (0.2-1) mg/dl AST 264 H (15-37) U/L ALT 96 H (12-78) U/L Alkaline Phosphatase 67 (45-117) U/L Albumin 2.0 L (3.4-5.0) gm/dl Medications Administered Current Inpatient Medications Albuterol (Ventolin Hfa) 1 puffs INH QIDR PRN PRN Reason: sob Stop: 01/29/20 13:03 Allopurinol (Zyloprim) 200 mg PO BID SERA Stop: 01/29/20 20:59 Last Admin: 12/31/19 09:06 Dose: 200 mg Documented by: Apixaban (Eliquis) 5 mg PO BID SERA Stop: 01/29/20 20:59 Last Admin: 12/31/19 09:06 Dose: 5 mg Documented by: Carvedilol (Coreg) 12.5 mg PO BID SERA Stop: 01/30/20 11:44 Last Admin: 12/31/19 12:45 Dose: 12.5 mg Documented by: Cetirizine HCl (Zyrtec) 10 mg PO DAILY SERA Stop: 01/30/20 08:59 Last Admin: 12/31/19 09:06 Dose: 10 mg Documented by: Chlorhexidine Gluconate (Peridex) 15 ml MT DAILY PRN PRN Reason: Pain Stop: 01/29/20 13:03 Clobetasol Propionate (Clobetasol Propionate Oint) 1 appln EXT BID SERA Stop: 01/29/20 20:59 Last Admin: 12/31/19 09:02 Dose: 1 appln Documented by: Fluticasone Propionate (Flonase) 2 sprays NA DAILY [facility]; Protocol Stop: 01/30/20 08:59 Last Admin: 12/31/19 09:05 Dose: 2 sprays Documented by: Fluticasone/Vilanterol (Breo Ellipta 100/25 Mcg Inh) 1 puffs INH DAILY [facility]; Protocol Stop: 01/30/20 08:59 Last Admin: 12/31/19 09:01 Dose: 1 puffs Documented by: Sodium Chloride (Nss 1000ml) 1,000 mls @ 125 mls/hr IV .Q8H SERA Stop: 01/29/20 11:59 Last Admin: 12/31/19 13:42 Dose: 125 mls/hr Documented by: Ceftriaxone Sodium 2,000 mg/ (Dextrose) 70 mls @ 100 mls/hr IV Q24H [facility]; Protocol Stop: 01/13/20 11:59 Last Infusion: 12/31/19 13:27 Dose: Infused Documented by: Lactobacillus Acidophilus (Floranex) 4 tab PO DAILY [facility] Stop: 01/31/20 08:59 Nitroglycerin (Nitrostat) 0.4 mg SL UD PRN PRN Reason: Chest Pain Stop: 01/29/20 11:50 Ondansetron HCl (Zofran) 4 mg IV Q6H PRN PRN Reason: Nausea Stop: 01/29/20 11:50 Oxybutynin Chloride (Ditropan) 5 mg PO DAILY SERA Stop: 01/30/20 11:44 Last Admin: 12/31/19 12:45 Dose: 5 mg Documented by: (1) Rhabdomyolysis Rhabdomyolysis type: non-traumatic Qualified Code(s): M62.82 - Rhabdomyolysis
[2020-01-01] MEDS: SODIUM CHLORIDE 0.9% 1000ML 1,000 ML IV SCH ×3 (05:35→20:28)
[2020-01-01 07:12] LABS: Eosinophils # (auto) 0.14 K/uL (0-0.5); Eosinophils % (auto) 2.4 %; Hemoglobin 14.5 g/dL (14.0-18.0); Immature Granulocytes # (auto) 0.07 K/uL (0.00-0.02); Immature Granulocytes % (auto) 1.2 %; Lymphocytes # (auto) 0.99 K/uL (1.2-3.4); Lymphocytes % (auto) 17.1 %; Mean Corpuscular Hgb Conc 34.5 g/dL (32-36); Mean Corpuscular Volume 89.9 fL (80-100); Mean Platelet Volume 11.5 fL (7.4-10.4); Monocytes # (auto) 0.49 K/uL (0.11-0.59); Monocytes % (auto) 8.5 %; Neutrophils # (auto) 4.09 K/uL (1.4-6.5); Neutrophils % (auto) 70.8 %; Platelet Count 117 K/uL (130-400); RDW Coefficient of Variation 14.4 % (11.5-14.5); RDW Standard Deviation 47.1 fL (36.4-46.3); Red Blood Count 4.67 M/uL (4.7-6.1); White Blood Count 5.78 K/uL (4.8-10.8)
[2020-01-01 07:51] LABS: Albumin Level 2.2 gm/dl (3.4-5.0); BUN Creatinine Ratio 39.7 (10-20); Calcium 8.3 mg/dl (8.5-10.1); Creatinine Clr Calc Pharmacy 93.2 ml/min; Est GFR (African American) 101.8; Est GFR (Non-African American) 87.8; Potassium 3.8 mmol/L (3.5-5.1)
[2020-01-01] MEDS: LACTOBACILLUS ACIDOPHILUS (FLORANEX) TAB PO SCH (07:53)
[2020-01-01] MEDS: CETIRIZINE HCL 10 MG TABLET PO SCH (07:53)
[2020-01-01] MEDS: OXYBUTYNIN CHLORIDE 5 MG TAB PO SCH (07:53)
[2020-01-01] MEDS: allopurinoL 100 MG TAB PO SCH ×2 (07:53→20:29)
[2020-01-01] MEDS: FLUTICASONE/VILANTEROL 100/25MCG 14 PUFFS/INHALER INH SCH (07:54)
[2020-01-01] MEDS: carvediloL 12.5 MG TAB PO SCH ×2 (07:54→20:29)
[2020-01-01] MEDS: APIXABAN 5 MG TABLET PO SCH ×2 (07:54→20:29)
[2020-01-01] MEDS: FLUTICASONE PROPIONATE NA SPR 16 GM BTL SCH (07:54)
[2020-01-01] MEDS: CLOBETASOL PROPIONATE 0.05% EXT SCH ×2 (07:54→20:28)
[2020-01-01 08:06] LABS: Albumin Globulin Ratio 0.7 (0.9-2); Bilirubin,Total 0.5 mg/dl (0.2-1); Globulin 3.1 gm/dl (2.5-4.0); Total Protein 5.3 gm/dl (6.4-8.2)
[2020-01-01] MEDS: cefTRIAXone SODIUM 2,000 MG in DEXTROSE 5% 50 ML IV SCH (11:55)
--- NOTE | 2020-01-01 14:40 | Hospitalist Progress Note ---
Date of Service January 01, 2020 Assessment & Plan (1) Hypovolemic shock: He was sent in from the PCPs office with hypotension and generalized aches and pain mostly involving shoulder and pelvic girdles for the last 10 days He was noted to be hypotensive with a blood pressure of 51/40 at presentation Likely cause of hypotension is hypovolemia secondary to dehydration He has not been eating or drinking reasonably of the last 10 days or so and finished a 14 days course of doxycycline for anaplasmosis He has been getting adequate amount of intravenous fluid and the blood pressure is improving Blood pressure has been improving but he still remains below 100 systolic-we will continue current fluid (2) Polymyositis-dermatomyositis: Has been complaining of pain and weakness involving shoulder and pelvic girdle is mainly for the last 1 week or more Complains to be stiffness as well Has had rash maculopapular mostly generalized but not typical for dermatomyositis Elevated CK without any increasing ESR and/or CRP We will send anti-Bebe 1 antibody We will start prednisone following ruling out of hepatitis Will need outpatient rheumatology evaluation Has not been ruled out and will start prednisone as soon as hepatitis panel is back (3) Elevated liver enzymes: Noted to have elevated liver enzymes up around 250s with more AST elevation than ALT Normal liver function test noted in [facility] on 08 December Anaplasmosis can cause elevated liver enzymes and doxycycline toxicity can be an issue as well Elevated liver enzymes could be secondary to hypotensive shock as well Will get hepatitis panel to rule out any acute hepatitis Could be secondary to possible dermatomyositis/polymyositis Monitor LFTs and start prednisone after ruling out hepatitis Generalized maculopapular rash Could be secondary to doxycycline and photosensitivity Was evaluated by apprentice instrument technician The rash has been fading away Not any typical rash of dermatomyositis Rash has been getting better (4) Hypotension due to hypovolemia: As above (5) LATRELL (acute kidney injury): Noted to have acute kidney injury with dehydration Received intravenous fluid and the kidney function has been improving We will monitor renal function-creatinine is normalized (6) Rhabdomyolysis: Noted to have very high CK of more than 3000 Could be secondary to dermatomyositis Myopathy associated with weakness and dehydration and could be secondary to doxy as well Will need intravenous fluid to improve kidney function Monitor CK-slightly improved to below 3000 (7) Lactic acid acidosis: Likely secondary to hypotension doubt any infection (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 following a tick bite about 1 week before that No history of Lyme disease Received doxycycline for 14 days (9) HTN (hypertension): Noted to hypotension on admission (10) PAF (paroxysmal atrial fibrillation): Continue Eliquis (11) Asthma: Stable (12) DVT prophylaxis: On Eliquis Admission and Anticipated Discharge Date Admission Date: December 30, 2019 Subjective The patient was seen and examined in telemetry unit 74-year-old male with significant past medical history of hypertension, hyperlipidemia, PAF anticoagulated with Eliquis with history of DVT/PE, asthma, tophaceous gout, aortic valve stenosis was admitted yesterday with hypotensive shock with history of ill feeling and muscle pain for about 10 days. He still feels tired and complains of muscle pain and stiffness mostly pelvic and shoulder girdles Denies any fever and/or chills, no nausea and/or vomiting Denies any chest pain and/or palpitation 01/01/2020 The patient was seen and examined in telemetry unit He has been feeling a lot better since admission but still complains to have pain in pelvic and shoulder girdle associated with weakness Denies any fever and/or chills Review of Systems Review of Systems: All systems reviewed and are unremarkable except as noted below Constitutional: + body aches, + fatigue and + weakness Musculoskeletal: + stiffness (Involving pelvic and shoulder girdles), + myalgia and + muscle weakness; no muscle atrophy Physical Exam Physical Exam: Lying in bed without any acute distress but anxious Constitutional: well developed, well nourished, + ill appearing and + morbidly obese; no acute distress Eyes: PERRL, conjunctivae normal, anicteric sclerae ENMT: external ear and nose normal, oropharynx normal Neck: trachea midline, no thyromegaly Respiratory: no respiratory distress (Minimal shortness of breath at rest) Auscultation: lungs clear to auscultation bilaterally Cardiovascular: Rate/Rhythm: regular rate and regular rhythm Heart Sounds: + murmur (2/6 systolic murmur over aortic area and precordium) Gastrointestinal (Abdomen): Inspection/Auscultation: abdomen normal to inspection and normal bowel sounds; abdomen not distended Percussion/Palpation: abdomen soft; abdomen nontender Musculoskeletal: Extremities: no muscle atrophy No pain in hip or shoulder joints on movement but complains to have muscular pain around the joints Neurologic: moves all extremities; no focal motor deficits Alert, awake and oriented x3 Lymphatic: no cervical or axillary lymphadenopathy Results & Data Results & Data ([facility]) Vital Signs (Past 12 Hours) Vital Signs Temp Pulse Resp BP Pulse Ox 01/01/20 11:23 36.9 C 79 19 97/66 L 97 01/01/20 07:00 36.4 C L 81 19 131/83 92 01/01/20 05:08 36.4 C L 78 20 98/68 L 92 Laboratory Results Short CBC 01/01/20 Range/Units 06:49 WBC 5.78 (4.8-10.8) K/uL Hgb 14.5 (14.0-18.0) g/dL Hct 42.0 (42-52) % Plt Count 117 L (130-400) K/uL BMP 01/01/20 06:49 Sodium 136 Potassium 3.8 Chloride 109 H Carbon Dioxide 20 L BUN 32 H Creatinine 0.79 Glucose 92 Calcium 8.3 L Cardiac Enzymes 01/01/20 Range/Units 06:49 Total Creatine Kinase 2408 H (39-308) U/L Liver Function 01/01/20 Range/Units 06:49 Total Bilirubin 0.5 (0.2-1) mg/dl AST 260 H (15-37) U/L ALT 98 H (12-78) U/L Alkaline Phosphatase 71 (45-117) U/L Albumin 2.2 L (3.4-5.0) gm/dl Medications Administered Current Inpatient Medications Albuterol (Ventolin Hfa) 1 puffs INH QIDR PRN PRN Reason: sob Stop: 01/29/20 13:03 Allopurinol (Zyloprim) 200 mg PO BID [facility] Stop: 01/29/20 20:59 Last Admin: 01/01/20 07:53 Dose: 200 mg Documented by: Apixaban (Eliquis) 5 mg PO BID [facility] Stop: 01/29/20 20:59 Last Admin: 01/01/20 07:54 Dose: 5 mg Documented by: Carvedilol (Coreg) 12.5 mg PO BID [facility] Stop: 01/30/20 11:44 Last Admin: 01/01/20 07:54 Dose: 12.5 mg Documented by: Cetirizine HCl (Zyrtec) 10 mg PO DAILY [facility] Stop: 01/30/20 08:59 Last Admin: 01/01/20 07:53 Dose: 10 mg Documented by: Chlorhexidine Gluconate (Peridex) 15 ml MT DAILY PRN PRN Reason: Pain Stop: 01/29/20 13:03 Clobetasol Propionate (Clobetasol Propionate Oint) 1 appln EXT BID [facility] Stop: 01/29/20 20:59 Last Admin: 01/01/20 07:54 Dose: 1 appln Documented by: Fluticasone Propionate (Flonase) 2 sprays NA DAILY [facility]; Protocol Stop: 01/30/20 08:59 Last Admin: 01/01/20 07:54 Dose: 2 sprays Documented by: Fluticasone/Vilanterol (Breo Ellipta 100/25 Mcg Inh) 1 puffs INH DAILY [facility]; Protocol Stop: 01/30/20 08:59 Last Admin: 01/01/20 07:54 Dose: 1 puffs Documented by: Sodium Chloride (Nss 1000ml) 1,000 mls @ 125 mls/hr IV .Q8H [facility] Stop: 01/29/20 11:59 Last Admin: 01/01/20 11:55 Dose: 125 mls/hr Documented by: Ceftriaxone Sodium 2,000 mg/ (Dextrose) 70 mls @ 100 mls/hr IV Q24H [facility]; Protocol Stop: 01/13/20 11:59 Last Infusion: 01/01/20 12:40 Dose: Infused Documented by: Lactobacillus Acidophilus (Floranex) 4 tab PO DAILY [facility] Stop: 01/31/20 08:59 Last Admin: 01/01/20 07:53 Dose: 4 tab Documented by: Nitroglycerin (Nitrostat) 0.4 mg SL UD PRN PRN Reason: Chest Pain Stop: 01/29/20 11:50 Ondansetron HCl (Zofran) 4 mg IV Q6H PRN PRN Reason: Nausea Stop: 01/29/20 11:50 Oxybutynin Chloride (Ditropan) 5 mg PO DAILY [facility] Stop: 01/30/20 11:44 Last Admin: 01/01/20 07:53 Dose: 5 mg Documented by: (1) Rhabdomyolysis Rhabdomyolysis type: non-traumatic Qualified Code(s): M62.82 - Rhabdomyolysis
[2020-01-01] MEDS ORDERED: IBUPROFEN 200 MG TAB PO STA (20:11)
[2020-01-02] MEDS: SODIUM CHLORIDE 0.9% 1000ML 1,000 ML IV SCH ×3 (04:38→20:25)
[2020-01-02 04:57] LABS: Basophils # (auto) 0.01 K/uL (0-0.2); Basophils % (auto) 0.2 %; Eosinophils # (auto) 0.17 K/uL (0-0.5); Eosinophils % (auto) 3.1 %; Hemoglobin 13.3 g/dL (14.0-18.0); Immature Granulocytes # (auto) 0.04 K/uL (0.00-0.02); Immature Granulocytes % (auto) 0.7 %; Lymphocytes # (auto) 0.91 K/uL (1.2-3.4); Lymphocytes % (auto) 16.8 %; Mean Corpuscular Hemoglobin 30.8 pg (25-34); Mean Corpuscular Hgb Conc 34.1 g/dL (32-36); Mean Corpuscular Volume 90.3 fL (80-100); Mean Platelet Volume 11.1 fL (7.4-10.4); Monocytes # (auto) 0.53 K/uL (0.11-0.59); Monocytes % (auto) 9.8 %; Neutrophils # (auto) 3.75 K/uL (1.4-6.5); Neutrophils % (auto) 69.4 %; Platelet Count 100 K/uL (130-400); RDW Coefficient of Variation 14.4 % (11.5-14.5); RDW Standard Deviation 47.6 fL (36.4-46.3); Red Blood Count 4.32 M/uL (4.7-6.1); White Blood Count 5.41 K/uL (4.8-10.8)
[2020-01-02 05:33] LABS: Albumin Level 1.8 gm/dl (3.4-5.0); BUN Creatinine Ratio 43.2 (10-20); Calcium 7.3 mg/dl (8.5-10.1); Creatinine Clr Calc Pharmacy 116.8 ml/min; Est GFR (African American) 111.7; Est GFR (Non-African American) 96.4; Potassium 3.5 mmol/L (3.5-5.1)
[2020-01-02 05:47] LABS: Albumin Globulin Ratio 0.6 (0.9-2); Bilirubin,Total 0.3 mg/dl (0.2-1); Globulin 2.9 gm/dl (2.5-4.0); Total Protein 4.7 gm/dl (6.4-8.2)
[2020-01-02] MEDS: CETIRIZINE HCL 10 MG TABLET PO SCH (09:04)
[2020-01-02] MEDS: carvediloL 12.5 MG TAB PO SCH ×2 (09:04→20:27)
[2020-01-02] MEDS: LACTOBACILLUS ACIDOPHILUS (FLORANEX) TAB PO SCH (09:04)
[2020-01-02] MEDS: FLUTICASONE PROPIONATE NA SPR 16 GM BTL SCH (09:04)
[2020-01-02] MEDS: CLOBETASOL PROPIONATE 0.05% EXT SCH ×2 (09:04→20:29)
[2020-01-02] MEDS: allopurinoL 100 MG TAB PO SCH ×2 (09:04→20:27)
[2020-01-02] MEDS: FLUTICASONE/VILANTEROL 100/25MCG 14 PUFFS/INHALER INH SCH (09:04)
[2020-01-02] MEDS: OXYBUTYNIN CHLORIDE 5 MG TAB PO SCH (09:04)
[2020-01-02] MEDS: APIXABAN 5 MG TABLET PO SCH ×2 (09:04→20:27)
[2020-01-02] MEDS: cefTRIAXone SODIUM 2,000 MG in DEXTROSE 5% 50 ML IV SCH (11:51)
--- NOTE | 2020-01-02 13:27 | Hospitalist Progress Note ---
Date of Service January 02, 2020 Assessment & Plan (1) Hypovolemic shock: He was sent in from the PCPs office with hypotension and generalized aches and pain mostly involving shoulder and pelvic girdles for the last 10 days He was noted to be hypotensive with a blood pressure of 51/40 at presentation Likely cause of hypotension is hypovolemia secondary to dehydration He has not been eating or drinking reasonably of the last 10 days or so and finished a 14 days course of doxycycline for anaplasmosis He has been getting adequate amount of intravenous fluid and the blood pressure is improving Blood pressure has been improving but he still remains below 100 systolic-we will continue current fluid Blood pressure remains around 108/72 We will hold off verapamil and lisinopril for now (2) Polymyositis-dermatomyositis: Has been complaining of pain and weakness involving shoulder and pelvic girdle is mainly for the last 1 week or more Complains to be stiffness as well Has had rash maculopapular mostly generalized but not typical for dermatomyos itis Elevated CK without any increasing ESR and/or CRP We will send anti-Bebe 1 antibody We will start prednisone following ruling out of hepatitis Will need outpatient rheumatology evaluation Will start prednisone orally after negative hepatitis panel (3) Elevated liver enzymes: Noted to have elevated liver enzymes up around 250s with more AST elevation than ALT Normal liver function test noted in epic on 08 December Anaplasmosis can cause elevated liver enzymes and doxycycline toxicity can be an issue as well Elevated liver enzymes could be secondary to hypotensive shock as well Will get hepatitis panel to rule out any acute hepatitis Could be secondary to possible dermatomyositis/polymyositis LFTs are improving but very gradually Will ask gastroenterology evaluation tomorrow Generalized maculopapular rash Could be secondary to doxycycline and photosensitivity Was evaluated by [facility] The rash has been fading away Not any typical rash of dermatomyositis Rash has been getting better Clobetasol is nonformulary in our pharmacy (4) Hypotension due to hypovolemia: As above (5) LATRELL (acute kidney injury): Noted to have acute kidney injury with dehydration Received intravenous fluid and the kidney function has been improving We will monitor renal function-creatinine is normalized (6) Rhabdomyolysis: Noted to have very high CK of more than 3000 Could be secondary to dermatomyositis Myopathy associated with weakness and dehydration and could be secondary to doxy as well Will need intravenous fluid to improve kidney function Monitor CK-slightly improved to 2155 from 3822 on admission We will monitor (7) Lactic acid acidosis: Likely secondary to hypotension doubt any infection (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 following a tick bite about 1 week before that No history of Lyme disease Received doxycycline for 14 days before admission (9) HTN (hypertension): Noted to hypotension on admission (10) PAF (paroxysmal atrial fibrillation): Continue Eliquis (11) Asthma: Stable (12) DVT prophylaxis: On Eliquis Admission and Anticipated Discharge Date Admission Date: December 30, 2019 Subjective The patient was seen and examined in telemetry unit 74-year-old male with significant past medical history of hypertension, hyperlipidemia, PAF anticoagulated with Eliquis with history of DVT/PE, asthma, tophaceous gout, aortic valve stenosis was admitted yesterday with hypotensive shock with history of ill feeling and muscle pain for about 10 days. He still feels tired and complains of muscle pain and stiffness mostly pelvic and shoulder girdles Denies any fever and/or chills, no nausea and/or vomiting Denies any chest pain and/or palpitation 01/01/2020 The patient was seen and examined in telemetry unit He has been feeling a lot better since admission but still complains to have pain in pelvic and shoulder girdle associated with weakness Denies any fever and/or chills 01/02/2020 The patient was seen and examined in telemetry unit He has been feeling a lot better but he still has pain and stiffness involving shoulder and pelvic girdles Denies any fever and/or chills The rash has been receding Review of Systems Review of Systems: All systems reviewed and are unremarkable except as noted below Constitutional: + body aches, + fatigue and + weakness Musculoskeletal: + stiffness (Involving pelvic and shoulder girdles), + myalgia and + muscle weakness; no muscle atrophy Physical Exam Physical Exam: Lying in bed without any acute distress but anxious Constitutional: well developed, well nourished and + morbidly obese; no acute distress and not ill appearing Eyes: PERRL, conjunctivae normal, anicteric sclerae ENMT: external ear and nose normal, oropharynx normal Neck: trachea midline, no thyromegaly Respiratory: no respiratory distress (Minimal shortness of breath at rest) Auscultation: lungs clear to auscultation bilaterally Cardiovascular: Rate/Rhythm: regular rate and regular rhythm Heart Sounds: + murmur (2/6 systolic murmur over aortic area and precordium) Gastrointestinal (Abdomen): Inspection/Auscultation: abdomen normal to inspection and normal bowel sounds; abdomen not distended Percussion/Palpation: abdomen soft; abdomen nontender Musculoskeletal: Extremities: no muscle atrophy Pain and stiffness with movement of the shoulders and hip joints Neurologic: moves all extremities; no focal motor deficits Alert, awake and oriented x3 Lymphatic: no cervical or axillary lymphadenopathy Results & Data Results & Data ([facility]) Vital Signs (Past 12 Hours) Vital Signs Temp Pulse Resp BP BP Pulse Ox 01/02/20 12:06 36.7 C 87 18 108/72 95 01/02/20 07:34 36.7 C 79 19 113/78 94 01/02/20 07:29 37.1 C 95 H 22 160/81 H 97 01/02/20 03:32 36.6 C 71 16 114/76 94 Laboratory Results Short CBC 01/02/20 Range/Units 04:35 WBC 5.41 (4.8-10.8) K/uL Hgb 13.3 L (14.0-18.0) g/dL Hct 39.0 L (42-52) % Plt Count 100 L (130-400) K/uL BMP 01/02/20 04:35 Sodium 141 Potassium 3.5 Chloride 114 H Carbon Dioxide 20 L BUN 27 H Creatinine 0.63 Glucose 96 Calcium 7.3 L Cardiac Enzymes 01/02/20 Range/Units 04:35 Total Creatine Kinase 2155 H (39-308) U/L Liver Function 01/02/20 Range/Units 04:35 Total Bilirubin 0.3 (0.2-1) mg/dl AST 235 H (15-37) U/L ALT 102 H (12-78) U/L Alkaline Phosphatase 76 (45-117) U/L Albumin 1.8 L (3.4-5.0) gm/dl Medications Administered Current Inpatient Medications Albuterol (Ventolin Hfa) 1 puffs INH QIDR PRN PRN Reason: sob Stop: 01/29/20 13:03 Allopurinol (Zyloprim) 200 mg PO BID [facility] Stop: 01/29/20 20:59 Last Admin: 01/02/20 09:04 Dose: 200 mg Documented by: Apixaban (Eliquis) 5 mg PO BID [facility] Stop: 01/29/20 20:59 Last Admin: 01/02/20 09:04 Dose: 5 mg Documented by: Carvedilol (Coreg) 12.5 mg PO BID [facility] Stop: 01/30/20 11:44 Last Admin: 01/02/20 09:04 Dose: 12.5 mg Documented by: Cetirizine HCl (Zyrtec) 10 mg PO DAILY [facility] Stop: 01/30/20 08:59 Last Admin: 01/02/20 09:04 Dose: 10 mg Documented by: Chlorhexidine Gluconate (Peridex) 15 ml MT DAILY PRN PRN Reason: Pain Stop: 01/29/20 13:03 Clobetasol Propionate (Clobetasol Propionate Oint) 1 appln EXT BID [facility] Stop: 01/29/20 20:59 Last Admin: 01/02/20 09:04 Dose: Not Given Documented by: Fluticasone Propionate (Flonase) 2 sprays NA DAILY [facility]; Protocol Stop: 01/30/20 08:59 Last Admin: 01/02/20 09:04 Dose: 2 sprays Documented by: Fluticasone/Vilanterol (Breo Ellipta 100/25 Mcg Inh) 1 puffs INH DAILY [facility]; Protocol Stop: 01/30/20 08:59 Last Admin: 01/02/20 09:04 Dose: 1 puffs Documented by: Sodium Chloride (Nss 1000ml) 1,000 mls @ 125 mls/hr IV .Q8H [facility] Stop: 01/29/20 11:59 Last Admin: 01/02/20 11:51 Dose: 125 mls/hr Documented by: Ceftriaxone Sodium 2,000 mg/ (Dextrose) 70 mls @ 100 mls/hr IV Q24H [facility]; Protocol Stop: 01/13/20 11:59 Last Infusion: 01/02/20 12:40 Dose: Infused Documented by: Lactobacillus Acidophilus (Floranex) 4 tab PO DAILY [facility] Stop: 01/31/20 08:59 Last Admin: 01/02/20 09:04 Dose: 4 tab Documented by: Nitroglycerin (Nitrostat) 0.4 mg SL UD PRN PRN Reason: Chest Pain Stop: 01/29/20 11:50 Ondansetron HCl (Zofran) 4 mg IV Q6H PRN PRN Reason: Nausea Stop: 01/29/20 11:50 Oxybutynin Chloride (Ditropan) 5 mg PO DAILY [facility] Stop: 01/30/20 11:44 Last Admin: 01/02/20 09:04 Dose: 5 mg Documented by: (1) Rhabdomyolysis Rhabdomyolysis type: non-traumatic Qualified Code(s): M62.82 - Rhabdomyolysis
[2020-01-02] MEDS ORDERED: IBUPROFEN 200 MG TAB PO STA (20:42)
[2020-01-02] MEDS: TRIAMCINOLONE ACET 0.5% CR 15 GM TUBE EXT PRN (21:29)
[2020-01-03] MEDS: SODIUM CHLORIDE 0.9% 1000ML 1,000 ML IV SCH ×3 (05:33→20:16)
[2020-01-03 06:53] LABS: Basophils # (auto) 0.01 K/uL (0-0.2); Basophils % (auto) 0.2 %; Eosinophils # (auto) 0.19 K/uL (0-0.5); Eosinophils % (auto) 3.3 %; Hematocrit (blood only) 39.9 % (42-52); Hemoglobin 13.8 g/dL (14.0-18.0); Immature Granulocytes # (auto) 0.07 K/uL (0.00-0.02); Immature Granulocytes % (auto) 1.2 %; Lymphocytes # (auto) 1.09 K/uL (1.2-3.4); Lymphocytes % (auto) 19.1 %; Mean Corpuscular Hemoglobin 31.2 pg (25-34); Mean Corpuscular Hgb Conc 34.6 g/dL (32-36); Mean Corpuscular Volume 90.1 fL (80-100); Mean Platelet Volume 11.1 fL (7.4-10.4); Monocytes # (auto) 0.62 K/uL (0.11-0.59); Monocytes % (auto) 10.8 %; Neutrophils # (auto) 3.74 K/uL (1.4-6.5); Neutrophils % (auto) 65.4 %; Platelet Count 100 K/uL (130-400); RDW Coefficient of Variation 14.7 % (11.5-14.5); RDW Standard Deviation 48.2 fL (36.4-46.3); Red Blood Count 4.43 M/uL (4.7-6.1); White Blood Count 5.72 K/uL (4.8-10.8)
[2020-01-03 07:25] LABS: Albumin Level 1.8 gm/dl (3.4-5.0); BUN Creatinine Ratio 31.1 (10-20); Calcium 7.8 mg/dl (8.5-10.1); Creatinine Clr Calc Pharmacy 103.2 ml/min; Est GFR (African American) 105.8; Est GFR (Non-African American) 91.3; Potassium 3.6 mmol/L (3.5-5.1)
[2020-01-03 07:46] LABS: Albumin Globulin Ratio 0.6 (0.9-2); Bilirubin,Total 0.2 mg/dl (0.2-1); Globulin 2.8 gm/dl (2.5-4.0); Total Protein 4.6 gm/dl (6.4-8.2)
[2020-01-03] MEDS: carvediloL 12.5 MG TAB PO SCH ×2 (08:47→20:18)
[2020-01-03] MEDS: CETIRIZINE HCL 10 MG TABLET PO SCH (08:47)
[2020-01-03] MEDS: OXYBUTYNIN CHLORIDE 5 MG TAB PO SCH (08:47)
[2020-01-03] MEDS: LACTOBACILLUS ACIDOPHILUS (FLORANEX) TAB PO SCH (08:47)
[2020-01-03] MEDS: TRIAMCINOLONE ACET 0.5% CR 15 GM TUBE EXT PRN (08:47)
[2020-01-03] MEDS: allopurinoL 100 MG TAB PO SCH ×2 (08:47→20:18)
[2020-01-03] MEDS: APIXABAN 5 MG TABLET PO SCH ×2 (08:47→20:17)
[2020-01-03] MEDS: FLUTICASONE PROPIONATE NA SPR 16 GM BTL SCH (08:48)
[2020-01-03] MEDS: FLUTICASONE/VILANTEROL 100/25MCG 14 PUFFS/INHALER INH SCH (08:49)
[2020-01-03] MEDS: CLOBETASOL PROPIONATE 0.05% EXT SCH ×2 (08:49→20:17)
--- NOTE | 2020-01-03 12:05 | Hospitalist Progress Note ---
Date of Service January 03, 2020 Assessment & Plan (1) Hypovolemic shock: He was sent in from the PCPs office with hypotension and generalized aches and pain mostly involving shoulder and pelvic girdles for the last 10 days He was noted to be hypotensive with a blood pressure of 51/40 at presentation Likely cause of hypotension is hypovolemia secondary to dehydration He has not been eating or drinking reasonably of the last 10 days or so and finished a 14 days course of doxycycline for anaplasmosis He has been getting adequate amount of intravenous fluid and the blood pressure is improving Blood pressure has been improving but he still remains below 100 systolic-we will continue current fluid Blood pressure remains around 108/72 We will hold off verapamil and lisinopril for now Blood pressure is still remains lower side of normal Will not restart other blood pressure medications as of yet (2) Polymyositis-dermatomyositis: Has been complaining of pain and weakness involving shoulder and pelvic girdle is mainly for the last 1 week or more Complains to be stiffness as well Has had rash maculopapular mostly generalized but not typical for dermatomyositis Elevated CK without any increasing ESR and/or CRP We will send anti-Bebe 1 antibody We will start prednisone following ruling out of hepatitis Will need outpatient rheumatology evaluation Discussed with porcelain mixer, there is no contraindication to using steroid WILLIS, [employer] ARCHITECT and anti-smooth muscle antibodies have been sent Started with prednisone 60 mg a day and will get an outpatient rheumatology appointment within 7 days of discharge (3) Elevated liver enzymes: Noted to have elevated liver enzymes up around 250s with more AST elevation than ALT Normal liver function test noted in [facility] on 08 December Anaplasmosis can cause elevated liver enzymes and doxycycline toxicity can be an issue as well Elevated liver enzymes could be secondary to hypotensive shock as well Will get hepatitis panel to rule out any acute hepatitis Could be secondary to possible dermatomyositis/polymyositis LFTs are improving but very gradually Will ask gastroenterology evaluation tomorrow Liver function remains elevated but slightly improved Generalized maculopapular rash Could be secondary to doxycycline and photosensitivity Was evaluated by stonecutter The rash has been fading away Not any typical rash of dermatomyositis Rash has been getting better Clobetasol is nonformulary in our pharmacy (4) Hypotension due to hypovolemia: As above (5) LATRELL (acute kidney injury): Noted to have acute kidney injury with dehydration Received intravenous fluid and the kidney function has been improving We will monitor renal function-creatinine is normalized (6) Rhabdomyolysis: Noted to have very high CK of more than 3000 Could be secondary to dermatomyositis Myopathy associated with weakness and dehydration and could be secondary to doxy as well Will need intravenous fluid to improve kidney function Monitor CK-slightly improved to 2155 from 3822 on admission We will monitor-CK still remains elevated We will monitor (7) Lactic acid acidosis: Likely secondary to hypotension doubt any infection (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 following a tick bite about 1 week before that No history of Lyme disease Received doxycycline for 14 days before admission (9) HTN (hypertension): Noted to hypotension on admission (10) PAF (paroxysmal atrial fibrillation): Continue Eliquis (11) Asthma: Stable (12) DVT prophylaxis: On Eliquis Admission and Anticipated Discharge Date Admission Date: December 30, 2019 Subjective The patient was seen and examined in telemetry unit 74-year-old male with significant past medical history of hypertension, hyperlipidemia, PAF anticoagulated with Eliquis with history of DVT/PE, asthma, tophaceous gout, aortic valve stenosis was admitted yesterday with hypotensive shock with history of ill feeling and muscle pain for about 10 days. He still feels tired and complains of muscle pain and stiffness mostly pelvic and shoulder girdles Denies any fever and/or chills, no nausea and/or vomiting Denies any chest pain and/or palpitation 01/01/2020 The patient was seen and examined in telemetry unit He has been feeling a lot better since admission but still complains to have pain in pelvic and shoulder girdle associated with weakness Denies any fever and/or chills 01/02/2020 The patient was seen and examined in telemetry unit He has been feeling a lot better but he still has pain and stiffness involving shoulder and pelvic girdles Denies any fever and/or chills The rash has been receding 01/03/2020 The patient was seen and examined in telemetry unit He has been feeling a lot better clinically Still complains to have pain and weakness in shoulder and pelvic girdles The rash is much better Denies any fever and/or chills Review of Systems Review of Systems: All systems reviewed and are unremarkable except as noted below Constitutional: + body aches, + fatigue and + weakness Musculoskeletal: + stiffness (Involving pelvic and shoulder girdles), + myalgia and + muscle weakness; no muscle atrophy Physical Exam Physical Exam: Lying in bed without any acute distress Constitutional: well developed, well nourished and + morbidly obese; no acute distress and not ill appearing Eyes: PERRL, conjunctivae normal, anicteric sclerae ENMT: external ear and nose normal, oropharynx normal Neck: trachea midline, no thyromegaly Respiratory: no respiratory distress (Minimal shortness of breath at rest) Auscultation: lungs clear to auscultation bilaterally Cardiovascular: Rate/Rhythm: regular rate and regular rhythm Heart Sounds: + murmur (2/6 systolic murmur over aortic area and precordium) Gastrointestinal (Abdomen): Inspection/Auscultation: abdomen normal to inspection and normal bowel sounds; abdomen not distended Percussion/Palpation: abdomen soft; abdomen nontender Musculoskeletal: Extremities: no muscle atrophy Pain and stiffness in shoulders and hip joints with movement Neurologic: moves all extremities; no focal motor deficits Alert, awake and oriented x3 Lymphatic: no cervical or axillary lymphadenopathy Results & Data Results & Data ([facility]) Vital Signs (Past 12 Hours) Vital Signs Temp Pulse Resp BP BP Pulse Ox 01/03/20 11:08 37.1 C 60 19 118/72 90 01/03/20 07:17 36.8 C 64 20 111/73 94 01/03/20 03:27 36.7 C 83 16 91/64 L 95 01/03/20 00:21 36.8 C 95 H 16 111/79 95 Laboratory Results Short CBC 01/03/20 Range/Units 06:28 WBC 5.72 (4.8-10.8) K/uL Hgb 13.8 L (14.0-18.0) g/dL Hct 39.9 L (42-52) % Plt Count 100 L (130-400) K/uL BMP 01/03/20 06:28 Sodium 141 Potassium 3.6 Chloride 114 H Carbon Dioxide 20 L BUN 23 H Creatinine 0.72 Glucose 91 Calcium 7.8 L Cardiac Enzymes 01/03/20 Range/Units 06:28 Total Creatine Kinase 3190 H (39-308) U/L Liver Function 01/03/20 Range/Units 06:28 Total Bilirubin 0.2 (0.2-1) mg/dl AST 259 H (15-37) U/L ALT 109 H (12-78) U/L Alkaline Phosphatase 87 (45-117) U/L Albumin 1.8 L (3.4-5.0) gm/dl Medications Administered Current Inpatient Medications Albuterol (Ventolin Hfa) 1 puffs INH QIDR PRN PRN Reason: sob Stop: 01/29/20 13:03 Allopurinol (Zyloprim) 200 mg PO BID SERA Stop: 01/29/20 20:59 Last Admin: 01/03/20 08:47 Dose: 200 mg Documented by: Apixaban (Eliquis) 5 mg PO BID SERA Stop: 01/29/20 20:59 Last Admin: 01/03/20 08:47 Dose: 5 mg Documented by: Carvedilol (Coreg) 12.5 mg PO BID SERA Stop: 01/30/20 11:44 Last Admin: 01/03/20 08:47 Dose: 12.5 mg Documented by: Cetirizine HCl (Zyrtec) 10 mg PO DAILY SERA Stop: 01/30/20 08:59 Last Admin: 01/03/20 08:47 Dose: 10 mg Documented by: Chlorhexidine Gluconate (Peridex) 15 ml MT DAILY PRN PRN Reason: Pain Stop: 01/29/20 13:03 Clobetasol Propionate (Clobetasol Propionate Oint) 1 appln EXT BID SERA Stop: 01/29/20 20:59 Last Admin: 01/03/20 08:49 Dose: 1 appln Documented by: Fluticasone Propionate (Flonase) 2 sprays NA DAILY SERA; Protocol Stop: 01/30/20 08:59 Last Admin: 01/03/20 08:48 Dose: 2 sprays Documented by: Fluticasone/Vilanterol (Breo Ellipta 100/25 Mcg Inh) 1 puffs INH DAILY SERA; Protocol Stop: 01/30/20 08:59 Last Admin: 01/03/20 08:49 Dose: 1 puffs Documented by: Sodium Chloride (Nss 1000ml) 1,000 mls @ 125 mls/hr IV .Q8H SERA Stop: 01/29/20 11:59 Last Admin: 01/03/20 05:33 Dose: 125 mls/hr Documented by: Ceftriaxone Sodium 2,000 mg/ (Dextrose) 70 mls @ 100 mls/hr IV Q24H [facility]; Protocol Stop: 01/13/20 11:59 Last Infusion: 01/02/20 12:40 Dose: Infused Documented by: Lactobacillus Acidophilus (Floranex) 4 tab PO DAILY [facility] Stop: 01/31/20 08:59 Last Admin: 01/03/20 08:47 Dose: 4 tab Documented by: Nitroglycerin (Nitrostat) 0.4 mg SL UD PRN PRN Reason: Chest Pain Stop: 01/29/20 11:50 Ondansetron HCl (Zofran) 4 mg IV Q6H PRN PRN Reason: Nausea Stop: 01/29/20 11:50 Oxybutynin Chloride (Ditropan) 5 mg PO DAILY [facility] Stop: 01/30/20 11:44 Last Admin: 01/03/20 08:47 Dose: 5 mg Documented by: Prednisone (Prednisone) 60 mg PO DAILY [facility] Stop: 02/02/20 11:44 Triamcinolone Acetonide (Kenalog 0.5%) 1 appln EXT BID PRN PRN Reason: Itching Stop: 02/01/20 20:42 Last Admin: 01/03/20 08:47 Dose: 1 appln Documented by: (1) Rhabdomyolysis Rhabdomyolysis type: non-traumatic Qualified Code(s): M62.82 - Rhabdomyolysis
--- NOTE | 2020-01-03 13:11 | Gastrointestinal Consultation ---
Date of Consultation January 03, 2020 Assessment & Plan (1) Elevated liver enzymes: Pt is a 74 y/o male admitted with muscle stiffness, joint pains, rashes. Hx of tick bite, Lymes negative, Anasplasmosis +, treated w Doxycycline. He reports symptoms appear shortly after taking Doxycycline except rash, which he's not sure when it started. CK up consistent with rhabdomyolosis. He is seen for newly elevated LFTs, liver u/s showed signs of hepatic steatosis, ? cirrhosis given nodularity of liver. DDx: DILI, MAN, viral hepatitis, rhabdo causing elevated LFTs. - F/U Hepatitis A/B/C serologis. Will obtain AIH, viral serologies (EBV, CMV, Parvo, HSV). - Monitor LFTs - Avoid hepatotoxic meds - Primary team going to start steroids for possible dermatomyositis - ? cirrhosis, upon DC will set up f/u GI appt to workup cirrhosis with further imaging studies such as liver CT or Fibroscan/EUS guided liver bx Supervising Physician Co-Signing Physician Notes Attending attestation I have seen, examined this patient, and agree with the findings and above by our mid-level provider HAYDEN Ervin, with the following additions: -Agree with differential, however, likely related to Rhabdo vs DILI -no signs of hepatic dysfunction -serological work up and then will follow History of Present Illness Reason for Consultation: Elevated LFTs Requesting Physician: Dr. Ricky Canales Attending Physician: Dr. Timoteo Montesinos History of Present Illness Pt is a 74 y/o male w PMHx of HTN, HLD, PAF, DVT on Eliquis, asthma, gout, BPH, aortic valve stenosis, mitral valve stenosis who is currently seen for newly elevated LFTs. He presented about 4 days ago with muscle and joint pains. He had hx of tick bite in November, tested Lymes negative but positive for Anasplasmosis. He was given 2 weeks course of Doxycycline. He reports he started to have joint pains (hip, shoulders) and muscle pain/stiff, cannot walk soon after starting Doxycycline. He also noticed rash in arms, chest, upper abd areas. On eval, noted elevated CK, and LFTs up: Tbili 0.2, AST 259, ALT 109, Alk phos 89. Liver U/S showed signs of hepatic steatosis, ? nodularity suggestive of early cirrhosis. Pt reports hx of Hepatitis years ago while travelling through [place] and [place]. Denies tatoos, body piercing, hx of IV/intranasal drug uses. He does admit to marijuana uses up to September. Supplement used: Turmeric, Selenium, Mg, B12, Vit E. He was taking Tylenol q6hrs for body aches, fevers. Allergies Allergy/AdvReac Type Severity Reaction Status Date / Time doxycycline AdvReac Severe Rash Verified 12/30/19 12:34 Home Medications Home Medications Medication Instructions Recorded Confirmed Type Lactobacillus acidophilus 1,000 mmu cells PO DAILY 12/30/19 12/30/19 History [Acidophilus] albuterol sulfate 1 inh INHALATION QID PRN 12/30/19 12/30/19 History allopurinol 200 mg PO BID 12/30/19 12/30/19 History apixaban 5 mg PO BID 12/30/19 12/30/19 History budesonide-formoterol [Symbicort] 2 puff INHALATION Q12H 12/30/19 12/30/19 History carvedilol 12.5 mg PO Q12H 12/30/19 12/30/19 History cetirizine 10 mg PO DAILY 12/30/19 12/30/19 History chlorhexidine gluconate 1 ml BUCCAL DAILY PRN 12/30/19 12/30/19 History clobetasol [Temovate] 1 applic TOPICAL BID 12/30/19 12/30/19 History indapamide 2.5 mg PO QAM 12/30/19 12/30/19 History lisinopril 40 mg PO DAILY 12/30/19 12/30/19 History mometasone [Nasonex] 2 spray INTRANASAL DAILY 12/30/19 12/30/19 History omega [id number]-fish oil [Fish Oil] 1 cap PO DAILY 12/30/19 12/30/19 History oxybutynin chloride 5 mg PO DAILY 12/30/19 12/30/19 History pravastatin 20 mg PO HS 12/30/19 12/30/19 History verapamil 40 mg PO DAILY 12/30/19 12/30/19 History Patient History Medical History Aortic stenosis Arthritis Asthma (Chronic) Asthma BPH w urinary obs/LUTS Gout High blood pressure High cholesterol History of DVT (deep vein thrombosis) HTN (hypertension) (Chronic) Kidney stones, calcium oxalate Mitral stenosis PAF (paroxysmal atrial fibrillation) Surgical History H/O colonoscopy (Inactive) H/O hand surgery (Inactive) H/O sinus surgery (Inactive) History of appendectomy (Inactive) History of esophagogastroduodenoscopy (EGD) (Inactive) History of left knee replacement History of Letha fundoplication Hx of tonsillectomy (Inactive) Family History Brother Prostate cancer Father Hypertension Heart disease Social History Smoking Status: Former smoker Tobacco Type: Cigarettes packs per day: 1; Years Smoked: 20; Cigarettes Per Day: 20; Hx Alcohol Use: Yes Hx Substance Use: No Preferred Language: [place] Communication Ability: Effective Cut Off Machine Unloader Required: No Beliefs That Will Affect Care: None marital status: Current Living Situation: Spouse Other Information That Helps Us Care for You: No Feels Safe at Home: Yes Safety Concerns: Feels Safe At This Time Review of Systems Review of Systems: All systems reviewed & are unremarkable except as noted in HPI & below Physical Exam Constitutional: WD/WN, vitals as above well groomed, cooperative and comfortable Eyes: PERRL, conjunctivae normal, anicteric sclerae ENMT: external ear and nose normal, oropharynx normal Respiratory: normal respiratory effort, lungs clear to auscultation Cardiovascular: RRR, no murmur, no edema Gastrointestinal (Abdomen): normal bowel sounds, soft, nontender, no hepatosplenomegaly Skin: + rash (chest, upper abd, arms); no jaundice Neurologic: Motor/Sensory: no asterixis Psychiatric: A+Ox3, euthymic affect Lymphatic: no lymphedema Results & Data ([facility]) Vital Signs (Past 12 Hours) Vital Signs Temp Pulse Resp BP BP Pulse Ox 01/03/20 11:08 37.1 C 60 19 118/72 90 01/03/20 07:17 36.8 C 64 20 111/73 94 01/03/20 03:27 36.7 C 83 16 91/64 L 95
[2020-01-03] MEDS: cefTRIAXone SODIUM 2,000 MG in DEXTROSE 5% 50 ML IV SCH (13:12)
[2020-01-03] MEDS: predniSONE 20 MG TAB PO SCH (13:13)
[2020-01-03 14:03] LABS: Ferritin 554.4 ng/ml (8-388)
[2020-01-03 15:29] LABS: Hepatitis A Antibody IgM NON-REACTIVE (NON-REACTIVE); Hepatitis B Core Antibody IgM NON-REACTIVE (NON-REACTIVE); JO 1 Antibody <1.0 NEG AI (<1.0 NEG)
[2020-01-03] MEDS ORDERED: TRIAMCINOLONE ACET 0.1% CR 15 GM TUBE EXT PRN (19:57)
[2020-01-04] MEDS: SODIUM CHLORIDE 0.9% 1000ML 1,000 ML IV SCH ×2 (04:05→11:23)
[2020-01-04 07:29] LABS: Basophils # (auto) 0.01 K/uL (0-0.2); Basophils % (auto) 0.2 %; Hematocrit (blood only) 44.6 % (42-52); Hemoglobin 14.8 g/dL (14.0-18.0); Immature Granulocytes # (auto) 0.03 K/uL (0.00-0.02); Immature Granulocytes % (auto) 0.5 %; Lymphocytes % (auto) 12.1 %; Mean Corpuscular Hemoglobin 29.8 pg (25-34); Mean Corpuscular Hgb Conc 33.2 g/dL (32-36); Mean Corpuscular Volume 89.7 fL (80-100); Mean Platelet Volume 10.9 fL (7.4-10.4); Monocytes # (auto) 0.52 K/uL (0.11-0.59); Monocytes % (auto) 7.9 %; Neutrophils # (auto) 5.26 K/uL (1.4-6.5); Neutrophils % (auto) 79.3 %; Platelet Count 117 K/uL (130-400); RDW Standard Deviation 48.9 fL (36.4-46.3); Red Blood Count 4.97 M/uL (4.7-6.1); White Blood Count 6.62 K/uL (4.8-10.8)
[2020-01-04 07:59] LABS: BUN Creatinine Ratio 27.8 (10-20); Calcium 8.3 mg/dl (8.5-10.1); Creatinine Clr Calc Pharmacy 115.2 ml/min; Est GFR (African American) 109.6; Est GFR (Non-African American) 94.6; Potassium 3.7 mmol/L (3.5-5.1)
[2020-01-04] MEDS: LACTOBACILLUS ACIDOPHILUS (FLORANEX) TAB PO SCH (07:59)
[2020-01-04] MEDS: allopurinoL 100 MG TAB PO SCH ×2 (07:59→20:08)
[2020-01-04] MEDS: FLUTICASONE PROPIONATE NA SPR 16 GM BTL SCH (08:00)
[2020-01-04] MEDS: carvediloL 12.5 MG TAB PO SCH ×2 (08:00→20:08)
[2020-01-04] MEDS: APIXABAN 5 MG TABLET PO SCH ×2 (08:00→20:09)
[2020-01-04] MEDS: predniSONE 20 MG TAB PO SCH (08:00)
[2020-01-04] MEDS: OXYBUTYNIN CHLORIDE 5 MG TAB PO SCH (08:00)
[2020-01-04] MEDS: CETIRIZINE HCL 10 MG TABLET PO SCH (08:00)
[2020-01-04] MEDS: CLOBETASOL PROPIONATE 0.05% EXT SCH ×2 (08:01→20:09)
[2020-01-04] MEDS: FLUTICASONE/VILANTEROL 100/25MCG 14 PUFFS/INHALER INH SCH (08:01)
[2020-01-04 08:13] LABS: Albumin Globulin Ratio 0.6 (0.9-2); Bilirubin,Total 0.3 mg/dl (0.2-1); Globulin 3.2 gm/dl (2.5-4.0); Total Protein 5.2 gm/dl (6.4-8.2)
--- NOTE | 2020-01-04 10:57 | Gastroenterology Progress Note ---
Date of Service January 04, 2020 Assessment & Plan (1) Elevated liver enzymes: Pt is a 74 y/o male admitted with muscle stiffness, joint pains, rashes. Hx of tick bite, Lymes negative, Anasplasmosis +, treated w Doxycycline. He reports symptoms appear shortly after taking Doxycycline except rash, which he's not sure when it started. CK up consistent with rhabdomyolosis. He is seen for newly elevated LFTs, liver u/s showed signs of hepatic steatosis, ? cirrhosis given nodularity of liver. DDx: DILI, MAN, viral hepatitis, rhabdo causing elevated LFTs. Hep A/B/C negative. - F/U AIH, viral serologies (EBV, CMV, Parvo, HSV). - Monitor LFTs - Avoid hepatotoxic meds - Primary team started Prednisone 60mg for possible dermatomyositis - No contraindication for DC from GI standpoint. Will help set up GI appt to workup cirrhosis with further imaging studies such as liver CT or Fibroscan/EUS guided liver bx Admission and Anticipated Discharge Date Admission Date: December 30, 2019 Supervising Physician Co-Signing Physician Notes Attending attestation I have seen, examined this patient, and agree with the findings and above by our mid-level provider HAYDEN Ervin, with the following additions -Doing very well, since addition of steroids muscle and myalgias have improved, LFTs as well as CK are stable. Agree with current care. Will need outpatient follow-up for elevated LFTs Subjective Pt reports feeling well, reports muscle and joint aches is improved. Denies any abd pain, n/v. Moves bowels this AM s/o signs of dark tarry stools or rectal bleeding. LFTs similarly elevated. CK improved slightly Review of Systems Review of Systems: All systems reviewed & are unremarkable except as noted in HPI & below Physical Exam Constitutional: WD/WN, vitals as above well groomed, cooperative and comfortable Eyes: PERRL, conjunctivae normal, anicteric sclerae ENMT: external ear and nose normal, oropharynx normal Respiratory: normal respiratory effort, lungs clear to auscultation Cardiovascular: RRR, no murmur, no edema Gastrointestinal (Abdomen): normal bowel sounds, soft, nontender, no hepatosplenomegaly Skin: + rash (chest, upper abd, arms); no jaundice Neurologic: Motor/Sensory: no asterixis Psychiatric: A+Ox3, euthymic affect Lymphatic: no lymphedema Results & Data ([facility]) Vital Signs (Past 12 Hours) Vital Signs Temp Pulse Pulse Resp BP Pulse Ox 01/04/20 07:44 37.1 C 90 18 135/93 95 01/04/20 07:17 101 H 01/04/20 03:55 36.6 C 86 18 122/86 92 01/04/20 00:00 64 01/03/20 23:46 36.7 C 60 18 121/78 95
[2020-01-04] MEDS: cefTRIAXone SODIUM 2,000 MG in DEXTROSE 5% 50 ML IV SCH (11:23)
--- NOTE | 2020-01-04 13:42 | Hospitalist Progress Note ---
Date of Service January 04, 2020 Assessment & Plan (1) Hypovolemic shock: He was sent in from the PCPs office with hypotension and generalized aches and pain mostly involving shoulder and pelvic girdles for the last 10 days He was noted to be hypotensive with a blood pressure of 51/40 at presentation Likely cause of hypotension is hypovolemia secondary to dehydration He has not been eating or drinking reasonably of the last 10 days or so and finished a 14 days course of doxycycline for anaplasmosis He has been getting adequate amount of intravenous fluid and the blood pressure is improving Blood pressure has been improving but he still remains below 100 systolic-we will continue current fluid Blood pressure remains around 108/72 We will hold off verapamil and lisinopril for now Blood pressure is still remains lower side of normal Will not restart other blood pressure medications as of yet (2) Polymyositis-dermatomyositis: Has been complaining of pain and weakness involving shoulder and pelvic girdle is mainly for the last 1 week or more Complains to be stiffness as well Has had rash maculopapular mostly generalized but not typical for dermatomyositis Elevated CK without any increasing ESR and/or CRP We will send anti-Bebe 1 antibody We will start prednisone following ruling out of hepatitis Will need outpatient rheumatology evaluation Discussed with osteology teacher, there is no contraindication to using steroid WILLIS, CUFF FOLDER and anti-smooth muscle antibodies have been sent Started with prednisone 60 mg a day on 01/03/2020 Discussed with oracle business analyst , likely to be evaluated in the hospital (3) Elevated liver enzymes: Noted to have elevated liver enzymes up around 250s with more AST elevation than ALT Normal liver function test noted in [facility] on 08 December Anaplasmosis can cause elevated liver enzymes and doxycycline toxicity can be an issue as well Elevated liver enzymes could be secondary to hypotensive shock as well Will get hepatitis panel to rule out any acute hepatitis Could be secondary to possible dermatomyositis/polymyositis LFTs are improving but very gradually Will ask gastroenterology evaluation tomorrow Liver function remains elevated but slightly improved-GI will get an outpatient follow-up for further studies Generalized maculopapular rash Could be secondary to doxycycline and photosensitivity Was evaluated by rewrite editor The rash has been fading away Not any typical rash of dermatomyositis Rash has been getting better Clobetasol is nonformulary in our pharmacy Has been getting alternative of clobetasol in the hospital (4) Hypotension due to hypovolemia: As above (5) LATRELL (acute kidney injury): Noted to have acute kidney injury with dehydration Received intravenous fluid and the kidney function has been improving We will monitor renal function-creatinine is normalized (6) Rhabdomyolysis: Noted to have very high CK of more than 3000 Could be secondary to dermatomyositis Myopathy associated with weakness and dehydration and could be secondary to doxy as well Will need intravenous fluid to improve kidney function Monitor CK-slightly improved to 2155 from 3822 on admission We will monitor-CK still remains elevated CPK level has been improved-advised to drink more fluid and IV fluids will be decreased to 50 cc an hour Likely discharge tomorrow (7) Lactic acid acidosis: Likely secondary to hypotension doubt any infection (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 Carrizales as his PCP on discharge Admission and Anticipated Discharge Date Admission Date: December 30, 2019 Subjective The patient was seen and examined in telemetry unit 74-year-old male with significant past medical history of hypertension, hyperlipidemia, PAF anticoagulated with Eliquis with history of DVT/PE, asthma, tophaceous gout, aortic valve stenosis was admitted yesterday with hypotensive shock with history of ill feeling and muscle pain for about 10 days. He still feels tired and complains of muscle pain and stiffness mostly pelvic and shoulder girdles Denies any fever and/or chills, no nausea and/or vomiting Denies any chest pain and/or palpitation 01/01/2020 The patient was seen and examined in telemetry unit He has been feeling a lot better since admission but still complains to have pain in pelvic and shoulder girdle associated with weakness Denies any fever and/or chills 01/02/2020 The patient was seen and examined in telemetry unit He has been feeling a lot better but he still has pain and stiffness involving shoulder and pelvic girdles Denies any fever and/or chills The rash has been receding 01/03/2020 The patient was seen and examined in telemetry unit He has been feeling a lot better clinically Still complains to have pain and weakness in shoulder and pelvic girdles The rash is much better Denies any fever and/or chills 01/04/2020 The patient was seen and examined in telemetry unit He has been feeling a little bit better today Still has pain in the pelvic and shoulder girdles with movement Denies any fever and/or chills and the rash has been improving Review of Systems Review of Systems: All systems reviewed and are unremarkable except as noted below Constitutional: + body aches, + fatigue and + weakness Musculoskeletal: + stiffness (Involving pelvic and shoulder girdles), + myalgia and + muscle weakness; no muscle atrophy Physical Exam Physical Exam: Sitting at the edge of the bed without any acute distress Constitutional: well developed, well nourished and + morbidly obese; no acute distress and not ill appearing Eyes: PERRL, conjunctivae normal, anicteric sclerae ENMT: external ear and nose normal, oropharynx normal Neck: trachea midline, no thyromegaly Respiratory: no respiratory distress (Minimal shortness of breath at rest) Auscultation: lungs clear to auscultation bilaterally Cardiovascular: Rate/Rhythm: regular rate and regular rhythm Heart Sounds: + murmur (2/6 systolic murmur over aortic area and precordium) Gastrointestinal (Abdomen): Inspection/Auscultation: abdomen normal to inspection and normal bowel sounds; abdomen not distended Percussion/Palpation: abdomen soft; abdomen nontender Musculoskeletal: Extremities: no muscle atrophy Pain, stiffness and movements around pelvic and shoulder girdles have been improving Skin: + rash (Has been improving over torso) Neurologic: moves all extremities; no focal motor deficits Alert, awake and oriented x3 Lymphatic: no cervical or axillary lymphadenopathy Results & Data Results & Data ([facility] [place]) Vital Signs (Past 12 Hours) Vital Signs Temp Pulse Pulse Resp BP Pulse Ox 01/04/20 11:37 36.5 C 85 18 123/84 96 01/04/20 07:44 37.1 C 90 18 135/93 95 01/04/20 07:17 101 H 01/04/20 03:55 36.6 C 86 18 122/86 92 Laboratory Results Short CBC 01/04/20 Range/Units 06:42 WBC 6.62 (4.8-10.8) K/uL Hgb 14.8 (14.0-18.0) g/dL Hct 44.6 (42-52) % Plt Count 117 L (130-400) K/uL BMP 01/04/20 06:42 Sodium 143 Potassium 3.7 Chloride 116 H Carbon Dioxide 20 L BUN 18 Creatinine 0.66 Glucose 115 H Calcium 8.3 L Cardiac Enzymes 01/04/20 Range/Units 06:42 Total Creatine Kinase 3023 H (39-308) U/L Liver Function 01/04/20 Range/Units 06:42 Total Bilirubin 0.3 (0.2-1) mg/dl AST 272 H (15-37) U/L ALT 116 H (12-78) U/L Alkaline Phosphatase 89 (45-117) U/L Albumin 2.0 L (3.4-5.0) gm/dl Medications Administered Current Inpatient Medications Albuterol (Ventolin Hfa) 1 puffs INH QIDR PRN PRN Reason: sob Stop: 01/29/20 13:03 Allopurinol (Zyloprim) 200 mg PO BID SERA Stop: 01/29/20 20:59 Last Admin: 01/04/20 07:59 Dose: 200 mg Documented by: Apixaban (Eliquis) 5 mg PO BID [facility] Stop: 01/29/20 20:59 Last Admin: 01/04/20 08:00 Dose: 5 mg Documented by: Carvedilol (Coreg) 12.5 mg PO BID SERA Stop: 01/30/20 11:44 Last Admin: 01/04/20 08:00 Dose: 12.5 mg Documented by: Cetirizine HCl (Zyrtec) 10 mg PO DAILY [facility] Stop: 01/30/20 08:59 Last Admin: 01/04/20 08:00 Dose: 10 mg Documented by: Chlorhexidine Gluconate (Peridex) 15 ml MT DAILY PRN PRN Reason: Pain Stop: 01/29/20 13:03 Clobetasol Propionate (Clobetasol Propionate Oint) 1 appln EXT BID [facility] Stop: 01/29/20 20:59 Last Admin: 01/04/20 08:01 Dose: Not Given Documented by: Fluticasone Propionate (Flonase) 2 sprays NA DAILY [facility]; Protocol Stop: 01/30/20 08:59 Last Admin: 01/04/20 08:00 Dose: 2 sprays Documented by: Fluticasone/Vilanterol (Breo Ellipta 100/25 Mcg Inh) 1 puffs INH DAILY [facility]; Protocol Stop: 01/30/20 08:59 Last Admin: 01/04/20 08:01 Dose: 1 puffs Documented by: Sodium Chloride (Nss 1000ml) 1,000 mls @ 125 mls/hr IV .Q8H [facility] Stop: 01/29/20 11:59 Last Admin: 01/04/20 11:23 Dose: 50 mls/hr Documented by: Ceftriaxone Sodium 2,000 mg/ (Dextrose) 70 mls @ 100 mls/hr IV Q24H [facility]; Protocol Stop: 01/13/20 11:59 Last Infusion: 01/04/20 12:14 Dose: Infused Documented by: Lactobacillus Acidophilus (Floranex) 4 tab PO DAILY [facility] Stop: 01/31/20 08:59 Last Admin: 01/04/20 07:59 Dose: 4 tab Documented by: Nitroglycerin (Nitrostat) 0.4 mg SL UD PRN PRN Reason: Chest Pain Stop: 01/29/20 11:50 Ondansetron HCl (Zofran) 4 mg IV Q6H PRN PRN Reason: Nausea Stop: 01/29/20 11:50 Oxybutynin Chloride (Ditropan) 5 mg PO DAILY [facility] Stop: 01/30/20 11:44 Last Admin: 01/04/20 08:00 Dose: 5 mg Documented by: Prednisone (Prednisone) 60 mg PO DAILY [facility] Stop: 02/02/20 11:44 Last Admin: 01/04/20 08:00 Dose: 60 mg Documented by: Triamcinolone Acetonide (Kenalog 0.5%) 1 appln EXT BID PRN PRN Reason: Itching Stop: 02/01/20 20:42 Last Admin: 01/03/20 08:47 Dose: 1 appln Documented by: (1) Rhabdomyolysis Rhabdomyolysis type: non-traumatic Qualified Code(s): M62.82 - Rhabdomyolysis
[2020-01-04] MEDS ORDERED: Nursing to Pharmacy Communication SCH (14:00)
[2020-01-04] MEDS: TRIAMCINOLONE ACET 0.5% CR 15 GM TUBE EXT PRN (16:27)
[2020-01-05 00:55] LABS: Albumin 2.3 g/dL (3.8-4.8); Alpha 1 Antitrypsin 140 mg/dL (83-199); Alpha 1 Globulin 0.3 g/dL (0.2-0.3); Alpha 2 Globulin 0.7 g/dL (0.5-0.9); Beta-1-Globulin 0.2 g/dL (0.4-0.6); Beta-2-Globulin 0.2 g/dL (0.2-0.5); Ceruloplasmin 22 mg/dL (18-36); Gamma Globulin 0.7 g/dL (0.8-1.7); Monoclonal Protein Band 1 0.3 g/dL (NONE DETECTED); Monoclonal Protein Band 2 DNR g/dL (NONE DETECTED); Monoclonal Protein Band 3 DNR g/dL (NONE DETECTED); Total Protein 4.4 g/dL (6.1-8.1); Transglutaminase, Tissue IgA 1 U/mL
[2020-01-05] MEDS: SODIUM CHLORIDE 0.9% 1000ML 1,000 ML IV SCH (05:56)
[2020-01-05 06:56] LABS: Hematocrit (blood only) 39.1 % (42-52); Immature Granulocytes # (auto) 0.05 K/uL (0.00-0.02); Immature Granulocytes % (auto) 0.7 %; Lymphocytes # (auto) 0.95 K/uL (1.2-3.4); Lymphocytes % (auto) 12.8 %; Mean Corpuscular Hemoglobin 30.1 pg (25-34); Mean Corpuscular Hgb Conc 33.2 g/dL (32-36); Mean Corpuscular Volume 90.5 fL (80-100); Mean Platelet Volume 10.9 fL (7.4-10.4); Monocytes # (auto) 0.65 K/uL (0.11-0.59); Monocytes % (auto) 8.7 %; Neutrophils # (auto) 5.78 K/uL (1.4-6.5); Neutrophils % (auto) 77.8 %; Platelet Count 109 K/uL (130-400); RDW Coefficient of Variation 15.1 % (11.5-14.5); RDW Standard Deviation 50.2 fL (36.4-46.3); Red Blood Count 4.32 M/uL (4.7-6.1); White Blood Count 7.43 K/uL (4.8-10.8)
[2020-01-05 07:24] LABS: Albumin Level 1.7 gm/dl (3.4-5.0); BUN Creatinine Ratio 30.9 (10-20); Calcium 7.5 mg/dl (8.5-10.1); Creatinine Clr Calc Pharmacy 112.7 ml/min; Est GFR (African American) 107.6; Est GFR (Non-African American) 92.9; Potassium 3.6 mmol/L (3.5-5.1)
[2020-01-05 07:39] LABS: Albumin Globulin Ratio 0.6 (0.9-2); Bilirubin,Total 0.3 mg/dl (0.2-1); Globulin 2.8 gm/dl (2.5-4.0); Total Protein 4.5 gm/dl (6.4-8.2)
--- NOTE | 2020-01-05 07:53 | Rheumatology Consultation ---
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 Despite developing a rash early on, he continued to take medication for the entire 2 week course. very unlikely to be autoimmune in nature. prednisone was prescribed and is helping the toxic drug rash and maybe myaglias. would taper prednisone over a few weeks. agree with patient about outpatient PT. Plan: 1. taper pred at discharge - 40mg x 3 days, 30mg x 3 days, 20 mg x 3 days, 10mg x 3 days, 5mg x 3 days then stop 2. agree with outpatient PT 3. no rheumatology follow up needed 4. discuss medical marijuana with PCP 5. thank you for the consult and involving me in this patient's care Myositis location: multiple sites Myositis type: unspecified type Qualified Code(s): M60.9 - Myositis, unspecified Present on Admission?: Yes (2) Rhabdomyolysis: see above Rhabdomyolysis type: non-traumatic Qualified Code(s): M62.82 - Rhabdomyolysis Present on Admission?: Yes (3) Elevated liver enzymes: likely drug related to doxycycline, GI following Present on Admission?: Yes History of Present Illness Reason for Consultation: rash, elevated CK, ? autoimmune myositis Requesting Physician: Dr Canales Attending Physician: MD Dr Ally Nagel History of Present Illness Mr Mckeon is a 74 y/o male who presented to [facility] from his PCP office after being evaluated for diffuse myalgias, rash and noted to be hypotensive. at [facility] noted to have elevated CK to 3000 and elevated LFTs. He has a history of aortic stenosis, DVT on eloquis, osteoarthritis (S/p knee replacement), gout, Afib, asthma, Hypertension and hyperlipidemia. He states this all started after being bitten by a tick back in late October. shortly after he started to develop fevers muscle stiffness, rigors and pain especially in his upper thighs. prior to that he had arthritis pains and dealt with spinal stenosis but nothing like this before. he states it took 2 weeks to diagnosis with anaplasmosis. he was started on doxycycline for 2 weeks. the only symptom that improved was the fever. the myalgias seemed to get worse. he also reports that even after the 1st day of dosing he noted a rash on his arms and legs. despite the rash, he continued to take doxycycline for the entire 2 week course. In reviewing epic - appears he started doxy around 12/13 at an appt at his PCP office. in that note the tick bite was 2 months ago. He saw his PCP 12/29 with worsening symptoms, decreased appetite and poor oral intake and that was when he was sent to [facility]. his ASt was over 300 initially with ALT in the 100's, his CK was as high as 3000 and his ESR 34. His CRP was normal. GI saw him - noted possible cirrhosis on liver US - ? drug vs AIH vs MAN. so far hep studies normal. he had a diffuse rash on his arms and legs and abd. he stated the muscle pains were mainly his legs, and abdomen. Hopsitalist service wonder about dermatomyositis and started oral steroids at 60mg daily. he feels that has helped some. he did some walking around the hospital floor yesterday but muscle are still stiff. rash is getting better. no family history of autoimmune diseases or muscle diseases. he has never experienced anything like this before. he is wondering about PT which helped in the past for his spinal stenosis. also asking about medical marijuana for pain control since he cannot use NSAIDs and now with the liver no tylenol. his CK is better today at 2700. Bebe-A antibody was negative. Allergies Allergy/AdvReac Type Severity Reaction Status Date / Time doxycycline AdvReac Severe Rash Verified 12/30/19 12:34 Home Medications Home Medications Medication Instructions Recorded Confirmed Type Lactobacillus acidophilus 1,000 mmu cells PO DAILY 12/30/19 12/30/19 History [Acidophilus] albuterol sulfate 1 inh INHALATION QID PRN 12/30/19 12/30/19 History allopurinol 200 mg PO BID 12/30/19 12/30/19 History apixaban 5 mg PO BID 12/30/19 12/30/19 History budesonide-formoterol [Symbicort] 2 puff INHALATION Q12H 12/30/19 12/30/19 History carvedilol 12.5 mg PO Q12H 12/30/19 12/30/19 History cetirizine 10 mg PO DAILY 12/30/19 12/30/19 History chlorhexidine gluconate 1 ml BUCCAL DAILY PRN 12/30/19 12/30/19 History clobetasol [Temovate] 1 applic TOPICAL BID 12/30/19 12/30/19 History indapamide 2.5 mg PO QAM 12/30/19 12/30/19 History lisinopril 40 mg PO DAILY 12/30/19 12/30/19 History mometasone [Nasonex] 2 spray INTRANASAL DAILY 12/30/19 12/30/19 History omega 4-qbf-lgy-fish oil [Fish Oil] 1 cap PO DAILY 12/30/19 12/30/19 History oxybutynin chloride 5 mg PO DAILY 12/30/19 12/30/19 History pravastatin 20 mg PO HS 12/30/19 12/30/19 History verapamil 40 mg PO DAILY 12/30/19 12/30/19 History Patient History Medical History Aortic stenosis Arthritis Asthma (Chronic) Asthma BPH w urinary obs/LUTS Gout High blood pressure High cholesterol History of DVT (deep vein thrombosis) HTN (hypertension) (Chronic) Kidney stones, calcium oxalate Mitral stenosis PAF (paroxysmal atrial fibrillation) Surgical History H/O colonoscopy (Inactive) H/O hand surgery (Inactive) H/O sinus surgery (Inactive) History of appendectomy (Inactive) History of esophagogastroduodenoscopy (EGD) (Inactive) History of left knee replacement History of Letha fundoplication Hx of tonsillectomy (Inactive) Family History Brother Prostate cancer Father Hypertension Heart disease Social History Smoking Status: Former smoker Tobacco Type: Cigarettes packs per day: 1; Years Smoked: 20; Cigarettes Per Day: 20; Hx Alcohol Use: Yes Hx Substance Use: No Preferred Language: [place]an Communication Ability: Effective Data Architect Manager Required: No Beliefs That Will Affect Care: None marital status: Current Living Situation: Spouse Other Information That Helps Us Care for You: No Feels Safe at Home: Yes Safety Concerns: Feels Safe At This Time Review of Systems Review of Systems: All systems reviewed & are unremarkable except as noted in HPI & below Physical Exam Physical Exam: Gen: elderly male, NAD, comfrtable in bed Card: irregular, + murmur, no rubs Resp: CTA B/l without wheeze or rales Abd: soft, + BS Ext: mild LE edema noted skin: macular erythematous rash on arms, legs and abd with some excoriation. not a DM rash, no grotton papules MSK: no synovitis noted, muscle strength was good for deltoids, biceps and hip flexors with some give away because of pain Results & Data ([facility]) Vital Signs (Past 12 Hours) Vital Signs Temp Pulse Pulse Resp BP BP Pulse Ox 01/05/20 07:39 36.6 C 91 H 18 152/105 H 96 01/05/20 04:00 36.4 C L 74 129/89 95 01/05/20 00:00 84 01/04/20 23:45 36.5 C 83 18 116/81 94
[2020-01-05] MEDS: carvediloL 12.5 MG TAB PO SCH (08:07)
[2020-01-05] MEDS: CETIRIZINE HCL 10 MG TABLET PO SCH (08:08)
[2020-01-05] MEDS: LACTOBACILLUS ACIDOPHILUS (FLORANEX) TAB PO SCH (08:08)
[2020-01-05] MEDS: APIXABAN 5 MG TABLET PO SCH (08:08)
[2020-01-05] MEDS: FLUTICASONE/VILANTEROL 100/25MCG 14 PUFFS/INHALER INH SCH (08:08)
[2020-01-05] MEDS: allopurinoL 100 MG TAB PO SCH (08:08)
[2020-01-05] MEDS: FLUTICASONE PROPIONATE NA SPR 16 GM BTL SCH (08:08)
[2020-01-05] MEDS: OXYBUTYNIN CHLORIDE 5 MG TAB PO SCH (08:08)
[2020-01-05] MEDS: predniSONE 20 MG TAB PO SCH (08:08)
[2020-01-05] MEDS: CLOBETASOL PROPIONATE 0.05% EXT SCH (09:39)
[2020-01-05 12:11] VITALS: BP 129/89; PULSE 75; TEMP 97.5
[2020-01-05] MEDS: cefTRIAXone SODIUM 2,000 MG in DEXTROSE 5% 50 ML IV SCH (12:46)
--- NOTE | 2020-01-05 12:49 | Gastroenterology Progress Note ---
Date of Service January 05, 2020 Assessment & Plan (1) Elevated liver enzymes: Pt is a 74 y/o male admitted with muscle stiffness, joint pains, rashes. Hx of tick bite, Lymes negative, Anasplasmosis +, treated w Doxycycline. He reports symptoms appear shortly after taking Doxycycline except rash, which he's not sure when it started. CK up consistent with rhabdomyolosis. He is seen for newly elevated LFTs, liver u/s showed signs of hepatic steatosis, ? cirrhosis given nodularity of liver. DDx: DILI, MAN, viral hepatitis, rhabdo causing elevated LFTs. Hep A/B/C negative. - F/U AIH, viral serologies (EBV, CMV, Parvo, HSV). - Monitor LFTs - Avoid hepatotoxic meds - Primary team started Prednisone 60mg for possible dermatomyositis - Will sign off; No contraindication for DC from GI standpoint. Will help set up GI appt to workup cirrhosis with further imaging studies such as liver CT or Fibroscan/EUS guided liver bx Admission and Anticipated Discharge Date Admission Date: December 30, 2019 Supervising Physician Co-Signing Physician Notes Attending attestation I have seen, examined this patient, and agree with the findings and above by our mid-level provider HAYDEN Ervin, with the following additions: Improved outpt lft follow up Subjective Pt feels great, able to ambulate well in hallways. Denies abd pain, n/v. LFTs and CK trending down Review of Systems Review of Systems: All systems reviewed & are unremarkable except as noted in HPI & below Physical Exam Constitutional: WD/WN, vitals as above well groomed, cooperative and comfortable Eyes: PERRL, conjunctivae normal, anicteric sclerae ENMT: external ear and nose normal, oropharynx normal Respiratory: normal respiratory effort, lungs clear to auscultation Cardiovascular: RRR, no murmur, no edema Gastrointestinal (Abdomen): normal bowel sounds, soft, nontender, no hepatosplenomegaly Skin: + rash (chest, upper abd, arms); no jaundice Neurologic: Motor/Sensory: no asterixis Psychiatric: A+Ox3, euthymic affect Lymphatic: no lymphedema Results & Data ([facility]) Vital Signs (Past 12 Hours) Vital Signs Temp Pulse Resp BP BP Pulse Ox 01/05/20 12:10 36.4 C L 75 18 129/89 97 01/05/20 07:39 36.6 C 91 H 18 152/105 H 96 01/05/20 04:00 36.4 C L 74 129/89 95
[2020-01-05 13:09] VITALS: O2SAT 98
--- NOTE | 2020-01-05 13:31 | Hospitalist Progress Note ---
Date of Service January 05, 2020 Assessment & Plan (1) Hypovolemic shock: He was sent in from the PCPs office with hypotension and generalized aches and pain mostly involving shoulder and pelvic girdles for the last 10 days He was noted to be hypotensive with a blood pressure of 51/40 at presentation Likely cause of hypotension is hypovolemia secondary to dehydration He has not been eating or drinking reasonably of the last 10 days or so and finished a 14 days course of doxycycline for anaplasmosis He has been getting adequate amount of intravenous fluid and the blood pressure has improved We will hold off verapamil and lisinopril for now Will not restart other blood pressure medications as of yet (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, recommends taper prednisone - 40mg x 3 days, 30mg x 3 days, 20 mg x 3 days, 10mg x 3 days, 5mg x 3 days then stop (3) Elevated liver enzymes: Noted to have elevated liver enzymes up around 250s with more AST elevatio n than ALT Normal liver function test noted in [facility] on 08 December Anaplasmosis can cause elevated liver enzymes and doxycycline toxicity can be an issue as well Elevated liver enzymes could be secondary to hypotensive shock as well Will get hepatitis panel to rule out any acute hepatitis Could be secondary to possible dermatomyositis/polymyositis LFTs are improving but very gradually Gastroenterology evaluation obtained, serology pending,GI will get an outpatient follow-up for further studies and cirrhosis work-up Generalized maculopapular rash Could be secondary to doxycycline and photosensitivity Was evaluated by hose handler The rash has been fading away Not any typical rash of dermatomyositis Rash has been getting better Clobetasol is nonformulary in our pharmacy Has been getting alternative of clobetasol in the hospital (4) Hypotension due to hypovolemia: As above (5) LATRELL (acute kidney injury): Noted to have acute kidney injury with dehydration Received intravenous fluid and the kidney function has been improving We will monitor renal function-creatinine is normalized (6) Rhabdomyolysis: Noted to have very high CK of more than 3000 Could be secondary to dermatomyositis Myopathy associated with weakness and dehydration and could be secondary to doxy as well needed intravenous fluid to improve kidney function Monitor CK-slightly improved to 2155 from 3822 on admission We will monitor-CK still remains elevated CPK level has been improved-advised to drink more fluid and IV fluids will be decreased to 50 cc an hour Likely discharge today Follow-up CK as outpatient (7) Lactic acid acidosis: Likely secondary to hypotension doubt any infection (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 Carrizales as his PCP on discharge Admission and Anticipated Discharge Date Admission Date: December 30, 2019 Subjective Patient is sitting in a chair, in no acute distress, he is inquiring about going home. Able to ambulate in hallways. Denies abd pain, n/v. LFTs and CK trending down He is inquiring about walker prescription and prescription for PT evaluation and treatment. Review of Systems Review of Systems: All systems reviewed & are unremarkable except as noted in HPI & below Constitutional: no fever and no chills Respiratory: no cough and no dyspnea Cardiovascular: no chest pain, no palpitations and no edema Gastrointestinal: no abdominal pain and no vomiting Musculoskeletal: + stiffness (Involving pelvic and shoulder girdles), + myalgia and + muscle weakness; no muscle atrophy Physical Exam Physical Exam: Physical Exam: Elderly obese male, sitting up in the chair, in no acute distress Constitutional: well developed, well nourished and + morbidly obese; no acute distress and not ill appearing Eyes: PERRL, conjunctivae normal, anicteric sclerae ENMT: external ear and nose normal, oropharynx normal Neck: trachea midline, no thyromegaly Respiratory: no respiratory distress, Auscultation: lungs clear to auscultation bilaterally, no wheezing, rhonchi, crackles Cardiovascular: Rate/Rhythm: regular rate and regular rhythm Heart Sounds: + murmur (2/6 systolic murmur over aortic area and precordium) Gastrointestinal (Abdomen): Inspection/Auscultation: abdomen normal to inspection and normal bowel sounds; abdomen not distended, soft, nontender, obese Musculoskeletal: Extremities: no muscle atrophy Pain, stiffness and movements around pelvic and shoulder girdles have been improving Skin: + rash (Has been improving over torso) Neurologic: moves all extremities; no focal motor deficits Alert, awake and oriented x3, answering questions appropriately Results & Data Results & Data ([facility]) Vital Signs (Past 12 Hours) Vital Signs Temp Pulse Resp BP BP Pulse Ox 01/05/20 12:48 98 01/05/20 12:10 36.4 C L 75 18 129/89 97 01/05/20 07:39 36.6 C 91 H 18 152/105 H 96 01/05/20 04:00 36.4 C L 74 129/89 95 Laboratory Results 01/05/20 01/05/20 01/03/20 Range/Units 06:24 06:23 12:43 WBC 7.43 (4.8-10.8) K/uL RBC 4.32 L (4.7-6.1) M/uL Hgb 13.0 L (14.0-18.0) g/dL Hct 39.1 L (42-52) % MCV 90.5 (80-100) fL MCH 30.1 (25-34) pg MCHC 33.2 (32-36) g/dL RDW Std Deviation 50.2 H (36.4-46.3) fL RDW Coeff of Hanh 15.1 H (11.5-14.5) % Plt Count 109 L (130-400) K/uL MPV 10.9 H (7.4-10.4) fL Immature Gran % (Auto) 0.7 % Neut % (Auto) 77.8 % Lymph % (Auto) 12.8 % [place] % (Auto) 8.7 % Eos % (Auto) 0.0 % Baso % (Auto) 0.0 % Neut # (Auto) 5.78 (1.4-6.5) K/uL Lymph # (Auto) 0.95 L (1.2-3.4) K/uL [place] # (Auto) 0.65 H (0.11-0.59) K/uL Eos # (Auto) 0.00 (0-0.5) K/uL Baso # (Auto) 0.00 (0-0.2) K/uL Immature Gran # (Auto) 0.05 H (0.00-0.02) K/uL Sodium 146 H (136-145) mmol/L Potassium 3.6 (3.5-5.1) mmol/L Chloride 119 H (98-107) mmol/L Carbon Dioxide 22 (21-32) mmol/L Anion Gap 5.0 (3-11) BUN 21 H (7-18) mg/dl Creatinine 0.69 (0.6-1.4) mg/dl Est Cr Clr Drug Dosing 112.7 ml/min Est GFR ( Amer) 107.6 Est GFR (Non-Af Amer) 92.9 BUN/Creatinine Ratio 30.9 H (10-20) Glucose 101 H (70-99) mg/dl Calcium 7.5 L (8.5-10.1) mg/dl Total Bilirubin 0.3 (0.2-1) mg/dl AST 236 H (15-37) U/L ALT 108 H (12-78) U/L Alkaline Phosphatase 74 (45-117) U/L Total Creatine Kinase 2751 H (39-308) U/L Total Protein 4.5 L (6.4-8.2) gm/dl Total Protein (PEP) 4.4 L (6.1-8.1) g/dL Albumin 1.7 L (3.4-5.0) gm/dl Albumin (PEP) 2.3 L (3.8-4.8) g/dL Globulin 2.8 (2.5-4.0) gm/dl Albumin/Globulin Ratio 0.6 L (0.9-2) Qhwyr-1-Ziebhvmgj 0.3 (0.2-0.3) g/dL Ldnma-1-Xxyplhdpr 0.7 (0.5-0.9) g/dL Aalp-9-Cdpxzwnk 0.2 L (0.4-0.6) g/dL Bfoi-7-Kismagym 0.2 (0.2-0.5) g/dL Gamma Globulins 0.7 L (0.8-1.7) g/dL Monoclonal Peak 3 DNR (NONE DETECTED) g/dL Ser Monoclonl Protein 0.3 H (NONE DETECTED) g/dL Ser Monoclonal Prot 2 DNR (NONE DETECTED) g/dL PEP Interpretation SEE NOTE Hobqw-7-Gypfkwmnkkz 140 (83-199) mg/dL Ceruloplasmin 22 (18-36) mg/dL Anti-Mitochondrial Ab NEGATIVE (NEGATIVE) Tiss Transglutamin IgA 1 U/mL Medications Administered Current Inpatient Medications Albuterol (Ventolin Hfa) 1 puffs INH QIDR PRN PRN Reason: sob Stop: 01/29/20 13:03 Allopurinol (Zyloprim) 200 mg PO BID SERA Stop: 01/29/20 20:59 Last Admin: 01/05/20 08:08 Dose: 200 mg Documented by: Apixaban (Eliquis) 5 mg PO BID SERA Stop: 01/29/20 20:59 Last Admin: 01/05/20 08:08 Dose: 5 mg Documented by: Carvedilol (Coreg) 12.5 mg PO BID SERA Stop: 01/30/20 11:44 Last Admin: 01/05/20 08:07 Dose: 12.5 mg Documented by: Cetirizine HCl (Zyrtec) 10 mg PO DAILY [facility] Stop: 01/30/20 08:59 Last Admin: 01/05/20 08:08 Dose: 10 mg Documented by: Chlorhexidine Gluconate (Peridex) 15 ml MT DAILY PRN PRN Reason: Pain Stop: 01/29/20 13:03 Clobetasol Propionate (Clobetasol Propionate Oint) 1 appln EXT BID SERA Stop: 01/29/20 20:59 Last Admin: 01/05/20 09:39 Dose: 1 appln Documented by: Fluticasone Propionate (Flonase) 2 sprays NA DAILY [facility]; Protocol Stop: 01/30/20 08:59 Last Admin: 01/05/20 08:08 Dose: 2 sprays Documented by: Fluticasone/Vilanterol (Breo Ellipta 100/25 Mcg Inh) 1 puffs INH DAILY [facility]; Protocol Stop: 01/30/20 08:59 Last Admin: 01/05/20 08:08 Dose: 1 puffs Documented by: Sodium Chloride (Nss 1000ml) 1,000 mls @ 50 mls/hr IV .Q20H [facility] Stop: 01/29/20 11:59 Last Admin: 01/05/20 05:56 Dose: 50 mls/hr Documented by: Ceftriaxone Sodium 2,000 mg/ (Dextrose) 70 mls @ 100 mls/hr IV Q24H [facility]; Protocol Stop: 01/13/20 11:59 Last Admin: 01/05/20 12:46 Dose: 100 mls/hr Documented by: Lactobacillus Acidophilus (Floranex) 4 tab PO DAILY [facility] Stop: 01/31/20 08:59 Last Admin: 01/05/20 08:08 Dose: 4 tab Documented by: Nitroglycerin (Nitrostat) 0.4 mg SL UD PRN PRN Reason: Chest Pain Stop: 01/29/20 11:50 Ondansetron HCl (Zofran) 4 mg IV Q6H PRN PRN Reason: Nausea Stop: 01/29/20 11:50 Oxybutynin Chloride (Ditropan) 5 mg PO DAILY [facility] Stop: 01/30/20 11:44 Last Admin: 01/05/20 08:08 Dose: 5 mg Documented by: Prednisone (Prednisone) 60 mg PO DAILY [facility] Stop: 02/02/20 11:44 Last Admin: 01/05/20 08:08 Dose: 60 mg Documented by: Triamcinolone Acetonide (Kenalog 0.5%) 1 appln EXT BID PRN PRN Reason: Itching Stop: 02/01/20 20:42 Last Admin: 01/04/20 16:27 Dose: 1 appln Documented by: (1) Rhabdomyolysis Rhabdomyolysis type: non-traumatic Qualified Code(s): M62.82 - Rhabdomyolysis
[2020-01-05] MEDS ORDERED: POTASSIUM CHLORIDE 20 MEQ TABCR PO STA (13:36)
[2020-01-05 14:08] LABS: Anti Nuclear Antibody Screen NEGATIVE (NEGATIVE); RNP Antibody <1.0 NEG AI (<1.0 NEG); Smooth Muscle Antibody POSITIVE (NEGATIVE)
--- NOTE | 2020-01-05 14:15 | Discharge Summary ---
Date of Service January 05, 2020 Admission HPI Per Admitting Provider This is a 74-year-old male who has significant past medical history of HTN, HLD, PAF anticoagulated on Eliquis, history of DVT/PE, Asthma, tophaceous gout, BPH, aortic valve stenosis, mitral valve stenosis who presents to ED secondary to feeling dehydrated, ill feeling and muscle pain x10 days. Of significance patient's illness initially started at the beginning of November after he had a shingles vaccination on 11/22. He developed intermittent off-and-on fevers, chills, weakness and decreased appetite. He had a noted tick bite 2 weeks ago and requested Lyme testing. This was negative. He was also tested for COVID which was negative. He was reevaluated by PCP on 12/13 and underwent further testing with chest x-ray and Anaplasma. Chest x-ray was negative and Anaplasma was positive. He was placed on doxycycline 100 mg twice daily for 14 days and completed this course 2 days ago. Approximately 2 to 3 days into the doxycycline course he developed a decreased appetite, decreased taste and smell and slowly developed muscle weakness and pain. Muscle pain is to the point, "I cannot even stand up or sit up in bed without severe pain."Shortly after starting doxycycline he also developed a rash on his chest, anterior proximal thighs and back. He was seen and evaluated by dermatology and placed on clobetasol.Furthermore he was also undergoing work-up by cardiology and underwent 14-day quality assurance monitor chassis. This did reveal 7% paroxysmal A. fib burden, which is new for him. His Eliquis was increased from 2.5 mg twice daily to 5 mg twice daily. He was also restarted on verapamil which he previously had taken in the past. He did not start this as he was to begin it today. He did take all of his morning blood pressure pills including lisinopril, indapamide, Coreg as well as Eliquis. He has been compliant in taking his pravastatin as well. He denies any recent fever, chills, sweats, lightheadedness, dizziness, presyncope, chest pain, shortness breath, cough, palpitations, nausea, vomiting, abdominal pain, diarrhea, melena, medication. He denies any change in urinary habits. On arrival patient was significantly hypertensive with systolic blood pressures in the 50s. He had mild improvement after 2 L of IVF resulting in systolic BP in low 100s. Lab work was notable for rhabdomyolysis with CK 3822, elevated BUN/creatinine 40 and 1.52, lactic acid 2.2, AST 340, ALT 106, troponin 0.028 TSH WNL. Chest x- ray unremarkable. Admitting diagnosis is Acute Rhabdomyolysis in setting of poor p.o. intake during acute illness and statin use, LATRELL, lactic acidosis, elevated transaminitis. Admission Exam Per Admitting Provider Constitutional: WD/WN, acute ill appearing, vitals as above, NAD, lying in bed, pleasant, conversing easily Head: Normocephalic, Atraumatic Eyes: PERRL, conjunctivae normal, anicteric sclerae ENMT: external ear and nose normal, oropharynx normal dry mucous membranes Neck: trachea midline, no thyromegaly normal visual inspection Respiratory: normal respiratory effort, lungs clear to auscultation, no wheeze, rales, rhonchi. Normal insp/exp effort, no accessory muscle use Cardiovascular: RRR, 2/6 BRUCE noted LCW, no edema Vessels: no JVD or carotid bruit Chest: normal inspection of chest Abdomen: normal bowel sounds, soft, nontender, no hepatosplenomegaly Musculoskeletal: no cyanosis or clubbing, extremities motor strength 5/5, +pain to palpation to b/l upper/lower ext muscle bodies Skin: erythematous rash on b/l prox upper ext, face and anterior chest wall, no rashes, warm and dry moderate turgor Neurologic: PERRL, EOMI, accommodation nl, no face palsy, no dysarthria CN's II-XI intact bilaterally and moves all extremities Psychiatric: A+Ox3, euthymic affect Lymphatic: no cervical or axillary lymphadenopathy : deferred Principal Diagnosis Low blood pressure, toxic myositis, rhabdomyolysis, LATRELL, elevated liver enzymes Discharge Exam Physical Exam: Elderly obese male, sitting up in the chair, in no acute distress Constitutional: well developed, well nourished and + morbidly obese; no acute distress and not ill appearing Eyes: PERRL, conjunctivae normal, anicteric sclerae ENMT: external ear and nose normal, oropharynx normal Neck: trachea midline, no thyromegaly Respiratory: no respiratory distress, Auscultation: lungs clear to auscultation bilaterally, no wheezing, rhonchi, crackles Cardiovascular: Rate/Rhythm: regular rate and regular rhythm Heart Sounds: + murmur (2/6 systolic murmur over aortic area and precordium) Gastrointestinal (Abdomen): Inspection/Auscultation: abdomen normal to inspection and normal bowel sounds; abdomen not distended, soft, nontender, obese Musculoskeletal: Extremities: no muscle atrophy Pain, stiffness and movements around pelvic and shoulder girdles have been improving Skin: + rash (Has been improving over torso) Neurologic: moves all extremities; no focal motor deficits Alert, awake and oriented x3, answering questions appropriately Discharge Data Allergies Allergy/AdvReac Type Severity Reaction Status Date / Time doxycycline AdvReac Severe Rash Verified 12/30/19 12:34 Consultations 12/30/19 11:37 ED Decision to Admit Stat 12/30/19 11:53 Consult Case Management - Discharge Planning Routine 01/02/20 13:27 Consult Gastroenterology Routine 01/04/20 12:55 Consult Rheumatology Routine Ordered Studies 12/30/19 15:30 US liver Stat IMPRESSION: 1. Hepatic echotexture is heterogeneously increased suggesting steatosis. 2. Question nodularity of the hepatic surface contour. This could represent early change of cirrhosis. 3. No gallstones are identified. Hospital Course (1) Hypovolemic shock: He was sent in from the PCPs office with hypotension and generalized aches and pain mostly involving shoulder and pelvic girdles for the last 10 days He was noted to be hypotensive with a blood pressure of 51/40 at presentation Likely cause of hypotension is hypovolemia secondary to dehydration He has not been eating or drinking reasonably of the last 10 days or so and finished a 14 days course of doxycycline for anaplasmosis He has been getting adequate amount of intravenous fluid and the blood pressure has improved We will hold off verapamil and lisinopril for now Will not restart other blood pressure medications as of yet (2) Polymyositis-dermatomyositis: Toxic myositis has been complaining of pain and weakness involving shoulder and pelvic girdle is mainly for the last 1 week or more Complains to be stiffness as well Has had rash maculopapular mostly generalized but not typical for dermatomyositis Elevated CK without any increasing ESR and/or CRP anti-Bebe 1 antibody - negative Discussed with customer solutions specialist, there is no contraindication to using steroid WILLIS, SOFTWARE DESIGN MANAGER and anti-smooth muscle antibodies have been sent Started with prednisone 60 mg a day on 01/03/2020 Discussed with practice clinician, patient was seen by Dr. 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, recommends taper prednisone - 40mg x 3 days, 30mg x 3 days, 20 mg x 3 days, 10mg x 3 days, 5mg x 3 days then stop (3) Elevated liver enzymes: Noted to have elevated liver enzymes up around 250s with more AST elevation than ALT Normal liver function test noted in [facility] on 08 December Anaplasmosis can cause elevated liver enzymes and doxycycline toxicity can be an issue as well Elevated liver enzymes could be secondary to hypotensive shock as well Will get hepatitis panel to rule out any acute hepatitis Could be secondary to possible dermatomyositis/polymyositis LFTs are improving but very gradually Gastroenterology evaluation obtained, serology pending,GI will get an outpatient follow-up for further studies and cirrhosis work-up Generalized maculopapular rash Could be secondary to doxycycline and photosensitivity Was evaluated by catering barista The rash has been fading away Not any typical rash of dermatomyositis Rash has been getting better Clobetasol is nonformulary in our pharmacy Has been getting alternative of clobetasol in the hospital (4) Hypotension due to hypovolemia: As above (5) LATRELL (acute kidney injury): Noted to have acute kidney injury with dehydration Received intravenous fluid and the kidney function has been improving We will monitor renal function-creatinine is normalized (6) Rhabdomyolysis: Noted to have very high CK of more than 3000 Could be secondary to dermatomyositis Myopathy associated with weakness and dehydration and could be secondary to doxy as well needed intravenous fluid to improve kidney function Monitor CK-slightly improved to 2155 from 3822 on admission We will monitor-CK still remains elevated CPK level has been improved-advised to drink more fluid and IV fluids will be decreased to 50 cc an hour Likely discharge today Follow-up CK as outpatient (7) Lactic acid acidosis: Likely secondary to hypotension doubt any infection (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 Steve as his PCP on discharge Total Time Total Time Spent Total Time Spent (In Minutes): 40 Total Time Includes: Examination of the Patient, Discharge Planning, Medication Reconciliation and Communication With Other Providers Discharge Plan Discharge Items Patient Disposition: Home - Self-Care Reason For Visit: LOW BLOOD PRESSURE,MUSCLE PAIN Discharge Diagnosis: Low blood pressure, toxic myositis, rhabdomyolysis, LATRELL, elevated liver enzymes Activity: Per Instructions section Non-emergency contact: Primary Care Provider Call non-emergency contact if: you have any medication questions and your symptoms worsen Follow-up/Referrals: Adriano Cali MD [Primary Care Provider] - 01/07/20 11:20 am (01/07/2020 11:20 AM Provider Alex Steve DO [facility] ) Diet: Heart Healthy Addtl Attending Provider Instructions: Follow-up with primary care provider, appointment was scheduled for you with Dr. Steve, on January 06. Take prednisone taper as prescribed, you will need to take prednisone 40mg x 3 days, 30mg x 3 days, 20 mg x 3 days, 10mg x 3 days, 5mg x 3 days then stop. You will need to follow-up with gastroenterology regarding your elevated liver enzymes and cirrhosis. You will be contacted about the appointment. Do not take lisinopril or verapamil until you see and talk to your primary care doctor. Check your blood pressure at home if you can and record these numbers. Give the log of your blood pressure numbers to your primary care doctor. Prescription for a walker and for physical therapy will be given to you. Pending Studies at Discharge: Yes Studies:: Liver serologies Stand-Alone Forms: My [facility] Consumer Health Advisers, Smoking Cessation Medications and DC Order Prescriptions: New prednisone 10 mg tablet 10 mg PO UD Qty: 30 RF: 0 prednisone 5 mg tablet 5 mg PO DAILY Qty: 3 RF: 0 clobetasol 0.05 % cream 1 g topical BID 7 Days RF: 0 Continued carvedilol 12.5 mg Tablet 12.5 mg PO Q12H RF: 0 cetirizine 10 mg Tablet 10 mg PO DAILY RF: 0 indapamide 2.5 mg Tablet 2.5 mg PO QAM RF: 0 allopurinol 100 mg Tablet 200 mg PO BID RF: 0 mometasone [Nasonex] 50 mcg/actuation [place],Non-Aerosol 2 spray INTRANASAL DAILY RF: 0 Lactobacillus acidophilus [Acidophilus] Capsule 1,000 mmu cells PO DAILY RF: 0 albuterol sulfate 90 mcg/actuation Hfa Aerosol Inhaler 1 inh INHALATION QID PRN (Reason: sob) RF: 0 oxybutynin chloride 5 mg Tablet 5 mg PO DAILY RF: 0 chlorhexidine gluconate 0.12 % Mouthwash 1 ml BUCCAL DAILY PRN (Reason: Pain) RF: 0 budesonide-formoterol [Symbicort] 80-4.5 mcg/actuation Hfa Aerosol Inhaler 2 puff INHALATION Q12H RF: 0 omega 7-ycg-zki-fish oil [Fish Oil] 1,000 mg (120 mg-180 mg) Capsule 1 cap PO DAILY RF: 0 apixaban 5 mg Tablet 5 mg PO BID RF: 0 Discontinued verapamil 40 mg Tablet 40 mg PO DAILY RF: 0 clobetasol [Temovate] 0.05 % Cream 1 applic TOPICAL BID RF: 0 pravastatin 20 mg Tablet 20 mg PO HS RF: 0 lisinopril 40 mg Tablet 40 mg PO DAILY RF: 0 Discharge Orders: Discharge Order (Routine); Ordered 01/05/20 Ordered By: Steve Lao Admission Data Admit Date/Time: 12/30/19 11:51 Attending Provider: Steve Lao Admit Provider: Judy Wade Primary Care Provider: Adriano Cali Other Providers: Judy Wade ; [facility] ; Steffanie Mayo ; Sandi Agudelo ; Precious Archuleta ; Yari Moscoso ; Timoteo Montesinos ; Trve Pearce ; Raghavendra Villaseñor ; Rose Mary Bell ; Manuelito Reyes ; Shawn Brandt ; Lexy Hidalgo ; Kaye Bran ; Alia Cummings ; Ligia Rios ; Corby Valle ; Lennox Acuña ; Ricky Canales
[2020-01-07 15:19] LABS: CMV IgM Antibody <30.00 AU/mL; Herpes Simplex Ab IgG-1 >58.00 index; Herpes Simplex Ab IgG-2 <0.90 index; Parvovirus IgG 0.7 (<0.9); Parvovirus IgM 0.1 (<0.9)
== END 2020-01-05 14:41 | disposition home health service (06) | DRG 682 ==
LOC: ED 09:57 → 2S 11:51 → SUATTDRO 11:51 → 2S 12:24

== ENCOUNTER 2022-05-16 12:30 | Inpatient (IN) ==
--- NOTE | 2022-05-16 12:34 | Emergency Department Note ---
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 Acute hypoxemic respiratory failure Patient Disposition: Admitted As Inpatient Discharge Instructions Interventions: ED Discharge Assessment Last Done: 05/16/22 19:16
[2022-05-16] MEDS ORDERED: ALBUT/IPRATROP 3MG/0.5MG NEB 3 ML VIAL INH STA (12:42)
[2022-05-16] MEDS ORDERED: CEFEPIME 2,000 MG/20 ML VIAL IV STA (12:42)
[2022-05-16 13:07] LABS: Hematocrit (blood only) 39.7 % (40.1-51.0); Hemoglobin 13.5 g/dl (14.0-18.0); Mean Corpuscular Hemoglobin 32.2 pg (25.0-34.0); Mean Corpuscular Volume 94.7 fL (80.0-100.0); Platelet Count 209 K/uL (130-400); RDW Coefficient of Variation 13.2 % (11.5-14.5); RDW Standard Deviation 45.4 fL (36.4-46.3); Red Blood Count 4.19 M/uL (4.63-6.08); White Blood Count 21.78 K/ul (4.8-10.8)
[2022-05-16 13:23] LABS: Basophils # (auto) 0.05 K/uL (0-0.2); Basophils % (auto) 0.2 %; Eosinophils # (auto) 0.06 K/uL (0-0.50); Eosinophils % (auto) 0.3 %; Immature Granulocytes # (auto) 0.21 K/uL (0.00-0.02); Lymphocytes # (auto) 0.68 K/uL (1.2-3.4); Lymphocytes % (auto) 3.1 %; Monocytes # (auto) 0.81 K/uL (0.24-0.82); Monocytes % (auto) 3.7 %; Neutrophils # (auto) 19.97 K/uL (1.4-6.5); Neutrophils % (auto) 91.7 %
[2022-05-16 13:28] LABS: Albumin Globulin Ratio 1.3 (0.9-2); Albumin Level 3.4 gm/dl (3.4-5.0); BUN Creatinine Ratio 15.7 (10-20); Bilirubin,Total 0.7 mg/dl (0.2-1.0); Calcium 8.6 mg/dl (8.5-10.1); Creatinine Clr Calc Pharmacy 82.5 ml/min; Est GFR (African American) 95.6 ml/min; Est GFR (Non-African American) 82.5 ml/min; Globulin 2.6 gm/dl (2.5-4.0); Potassium 3.6 mmol/L (3.5-5.1)
--- NOTE | 2022-05-16 13:29 | XRay Report ---
XR chest 1V portable CLINICAL HISTORY: Dyspnea TECHNIQUE: Single frontal radiograph of the chest was obtained. Comparison: Comparison is made to chest radiograph dated 11/13/2019 FINDINGS: No lines and tubes are seen. Cardiomegaly is noted. There is prominence and cephalization of the vasc ulature with Sammi B lines seen. No evidence of pleural effusion or pneumothorax. IMPRESSION: Cardiomegaly and moderate pulmonary edema. ACT 112: Negative or not required by law. Electronically signed by: Idris Jain M.D. 05/16/2022 1:27 PM
[2022-05-16] MEDS ORDERED: FUROSEMIDE 40 MG/4 ML VIAL IV ONE (13:35)
[2022-05-16 13:38] LABS: Troponin I High Sensitivity 125.1 pg/ml (0-20)
[2022-05-16 13:53] LABS: Influenza A virus by PCR Negative (Neg); Influenza B virus by PCR Negative (Neg); RSV by PCR Negative (Neg); SARS CoV2 RNA(COVID-19) Ceph NEGATIVE (Negative)
[2022-05-16] MEDS ORDERED: OPTIRAY 320 500ml IV ONE (14:20)
--- NOTE | 2022-05-16 14:59 | CT Scan Report ---
CT angio chest PE protocol CT DOSE: 708.42 mGy.cm HISTORY: 76 years-old Male with PE. Acute shortness of breath with cough TECHNIQUE: Multiple CTA images of the chest were obtained after the intravenous administration of 108 ml Optiray. Coronal and sagittal MIPS were obtained from the axial data set and were submitted for review. All measurements were obtained according to NASCET criteria. A dose lowering technique was u tilized adhering to the principles of ALARA. COMPARISON: Chest radiograph of same day FINDINGS: CTA: Cardiomegaly without pericardial effusion. Extensive coronary arterial and mitral annular calcificati ons. Atherosclerosis of the aorta without aneurysm or dissection. Descending thoracic aortic tortuosi ty. No pulmonary emboli are identified. CT CHEST: No thyroid nodule identified. Mildly enlarged mediastinal and hilar lymph nodes measure up to approxi mate 1.2 cm. Small pleural effusions. Mild dependent subsegmental bibasilar consolidation. Intralobul ar and bronchial wall thickening. 5 mm fissural nodule of the right middle lobe, image 143. 4 mm fiss ural nodule of the right midlung, image 148.There are a few additional scattered solid pulmonary nodu les which are likely benign measuring up to 2 to 3 mm. Central airways are patent. Indeterminate 9 mm hypodense focus of the right hepatic lobe. Hepatic steatosis with hepatosplenomega ly. Mild generalized body wall edema with gynecomastia. Mid thoracic dextroscoliosis. Healed chronic right-sided rib fractures. IMPRESSION: 1. Cardiomegaly with interstitial pulmonary edema. 2. Small pleural effusions with mild dependent bibasilar atelectasis. 3. There are a few low suspicion scattered solid pulmonary nodules measuring up to 5 mm. 4. Hepatic steatosis with suggestion of hepatosplenomegaly. Please refer to below summary of Fleischner criteria recommendations for follow-up of incidental CT n odules (Vanessa Larson, Guidelines for management of small pulmonary nodules detected on CT scans: A sta tement from the Fleischner Society, Radiology 237: [id number].) SOLID NODULES Multiple nodules size: <6 mm * Low risk patients: no routine follow-up * high risk patients: optional CT at 12 months Note: newly detected indeterminate nodule in persons 35 years of age or older. * Low risk patients: minimal or absent history of smoking and/or other known risk factors * high risk patients: history of smoking or of other known risk factors (e.g. first degree relative with lung cancer, or exposure to asbestos, radon, uranium) * if a nodule up to 8 mm is partly solid or is ground glass further follow-up is required after 24 m onths to exclude possible slow growing adenocarcinoma (KELLY) ACT 112: Negative or not required by law. The above report was generated using voice recognition software. It may contain grammatical, syntax o r spelling errors. Electronically signed by: Edilberto Cruz M.D. 05/16/2022 2:56 PM
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
[2022-05-16] MEDS ORDERED: ACETAMINOPHEN 1,000 MG/100 ML VIAL IV STA (15:26)
[2022-05-16] MEDS ORDERED: ONDANSETRON INJ 2 MG/ML 2 ML VIAL IV PRN (15:34)
[2022-05-16] MEDS ORDERED: ALUMINUM/MAGNESIUM SUSP 30 ML UDC PO PRN (15:34)
[2022-05-16] MEDS ORDERED: MAGNESIUM HYDROXIDE SUSP 30 ML UDC PO PRN (15:34)
[2022-05-16] MEDS ORDERED: POLYETHYLENE (MIRALAX) 17 GM PACK PO PRN (15:34)
[2022-05-16] MEDS ORDERED: carvediloL 12.5 MG TAB ONE (17:35)
[2022-05-16] MEDS: AZITHROMYCIN 500 MG in DEXTROSE 5% 250 ML IV SCH (17:37)
[2022-05-16] MEDS: carvediloL 12.5 MG TAB PO SCH (18:30)
[2022-05-16] MEDS: ALBUTEROL 0.5% NEB SOLN 2.5 MG/0.5 ML VIAL NEB SCH (20:41)
[2022-05-16] MEDS: CEFEPIME 2,000 MG in SYRINGE 0 ML IV SCH (21:05)
[2022-05-16] MEDS: APIXABAN 5 MG TABLET PO SCH (21:05)
[2022-05-16] MEDS: allopurinoL 100 MG TAB PO SCH (21:05)
[2022-05-16 23:08] LABS: A calco-baum cmplx NotReported Not Detected (NotDetected); Bact fragilis Not Reported Not Detected (NotDetected); C auris Not Reported Not Detected (NotDetected); Calbicans Not Reported Not Detected (NotDetected); Candida glabrata Not Reported Not Detected (NotDetected); Candida krusei Not Reported Not Detected (NotDetected); Cneoformans/gatti Not Reported Not Detected (NotDetected); Cparapsilosis Not Reported Not Detected (NotDetected); Ctropicalis Not Reported Not Detected (NotDetected); E cloacae compx Not Reported Not Detected (NotDetected); Efaecalis Not Reported Not Detected (NotDetected); Efaecium Not Reported Not Detected (NotDetected); Enterobacterales Not Reported Not Detected (NotDetected); Escherichia coli Not Reported Not Detected (NotDetected); H influenzae Not Reported Not Detected (NotDetected); K aerogenes Not Reported Not Detected (NotDetected); Koxytoca Not Reported Not Detected (NotDetected); Kpneumoniae grp Not Reported Not Detected (NotDetected); Lmonocyt Not Reported Not Detected (NotDetected); N meningitidis Not Reported Not Detected (NotDetected); P aeruginosa Not Reported Not Detected (NotDetected); Proteus spp Not Reported Not Detected (NotDetected); Salmonella spp Not Reported Not Detected (NotDetected); Smarcescens Not Reported Not Detected (NotDetected); Staph lugdunensis Not Reported Not Detected (NotDetected); Staph spp. Not Reported DETECTED (NotDetected); Staphaureus Not Reported DETECTED (NotDetected); Staphepi Not Reported Not Detected (NotDetected); Staphylococcus spp. DETECTED (NotDetected); Stenmaltophilia Not Reported Not Detected (NotDetected); Strep agal(GrpB) Not Reported Not Detected (NotDetected); Strep pneum Not Reported Not Detected (NotDetected); Strep pyog (GrpA) Not Reported Not Detected (NotDetected); Strep spp Not Reported Not Detected (NotDetected); mecAC+MREJ Resistant Gene MRSA Not Detected (NotDetected)
[2022-05-17] MEDS: ALBUTEROL 0.5% NEB SOLN 2.5 MG/0.5 ML VIAL NEB SCH ×4 (01:40→19:40)
[2022-05-17] MEDS: CEFEPIME 2,000 MG in SYRINGE 0 ML IV SCH ×3 (05:14→19:52)
[2022-05-17 06:06] LABS: Appearance Urine Clear (Clear); Bilirubin Urine Negative (Negative); Blood Urine Negative (Negative); Color Urine Yellow; Glucose Urine UA Negative (Negative); Ketones Urine Negative (Negative); Leukocyte Esterase Urine Negative (Negative); Nitrite Urine Negative (Negative); Protein Urine Negative (Negative); Urobilinogen Urine Negative (Negative); pH Urine 5.5 (4.5-7.5)
[2022-05-17] MEDS: carvediloL 12.5 MG TAB PO SCH ×2 (06:21→18:07)
[2022-05-17] MEDS ORDERED: NON-FORMULARY MEDICATION (Selenium 50 mcg Tablet) PO SCH (09:00)
[2022-05-17] MEDS ORDERED: NON-FORMULARY MEDICATION (Coenzyme Q10 [Co Q-10] 100 mg Capsule) PO SCH (09:00)
[2022-05-17] MEDS ORDERED: QUERCETIN WITH BROMELAIN PO SCH (09:00)
[2022-05-17] MEDS ORDERED: [UNRECOGNIZED DRUG - OTHER] PO SCH (09:00)
[2022-05-17] MEDS ORDERED: NON-FORMULARY MEDICATION (Turmeric 400 mg Capsule) PO SCH (09:00)
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
[2022-05-17 09:27] LABS: Hematocrit (blood only) 37.7 % (40.1-51.0); Hemoglobin 13.1 g/dl (14.0-18.0); Mean Corpuscular Hgb Conc 34.7 g/dL (32.0-36.0); Mean Corpuscular Volume 92.2 fL (80.0-100.0); Mean Platelet Volume 9.5 fL (9.4-12.4); Platelet Count 175 K/uL (130-400); RDW Coefficient of Variation 13.3 % (11.5-14.5); RDW Standard Deviation 44.9 fL (36.4-46.3); Red Blood Count 4.09 M/uL (4.63-6.08); White Blood Count 21.44 K/ul (4.8-10.8)
[2022-05-17] MEDS: CETIRIZINE HCL 10 MG TABLET PO SCH (09:43)
[2022-05-17] MEDS: ALFUZOSIN HCL 10 MG TAB PO SCH (09:43)
[2022-05-17] MEDS: MAGNESIUM OXIDE 400 MG TAB PO SCH (09:43)
[2022-05-17] MEDS: AZITHROMYCIN 500 MG in DEXTROSE 5% 250 ML IV SCH (09:43)
[2022-05-17] MEDS: INDAPAMIDE 1.25 MG TAB PO SCH (09:44)
[2022-05-17] MEDS: ZINC SULFATE 220 MG CAPSULE PO SCH (09:44)
[2022-05-17] MEDS: APIXABAN 5 MG TABLET PO SCH ×2 (09:44→19:52)
[2022-05-17] MEDS: VITAMIN B COMPLEX TAB PO SCH (09:44)
[2022-05-17] MEDS: FINASTERIDE 5 MG TAB PO SCH (09:44)
[2022-05-17] MEDS: FLUTICASONE/VILANTEROL 200/25MCG 14 PUFFS/INHALER INH SCH (09:44)
[2022-05-17] MEDS: allopurinoL 100 MG TAB PO SCH ×2 (09:44→19:52)
[2022-05-17] MEDS: OMEGA-3 (PURIFIED FISH OIL) 1 GM CAP PO SCH (09:44)
[2022-05-17] MEDS: FLUTICASONE PROPIONATE NA SPR 16 GM BTL SCH (09:45)
[2022-05-17 09:52] LABS: BUN Creatinine Ratio 28.7 (10-20); Calcium 8.7 mg/dl (8.5-10.1); Creatinine Clr Calc Pharmacy 75.7 ml/min; Est GFR (African American) 90.3 ml/min; Est GFR (Non-African American) 77.9 ml/min; Potassium 3.6 mmol/L (3.5-5.1)
--- NOTE | 2022-05-17 11:15 | Hospitalist Progress Note ---
Date of Service May 17, 2022 Assessment & Plan (1) Sepsis: (2) HTN (hypertension): (3) Aortic stenosis: (4) PAF (paroxysmal atrial fibrillation): (5) Asthma: (6) BPH w urinary obs/LUTS: Plan Sepsis History of aortic valve stenosis Leukocytosis; WBC 21.78, tachycardia, febrile at 39.4 on admission Possible sources include pulmonary. Was evaluated for Upper resp symptoms by PCP on 04/19/22 and managed for rhinitis, asthma exacerbation. Chest CTA noted cardiomegaly with interstitial edema, small pleural effusion, few low suspicion scattered pulm nodules Review of old CT chest in [facility] also noted pulm nodules in 2020 and 2017 which were stable Based on history, cannot rule out pneumonia as source Though patient reports urgency and freq, his UA is not suggestive of UTI. His urgency and freq are also chronic and may be related to his BPH. Will get urine culture Considering valvular issues, infective endocarditis is a possibility Blood culture growing MSSA Repeat blood cultures Continue antibiotics Will follow up TTE. May need [employer] on board Will get ID evaluation when we have more results from outstanding workup Pedal edema BNP 400; pulm edema on CT chest Elevated troponin likely due to demand ischemia in the setting of acute illness Possible congestive heart failure Will defer diuretic and further management of this to Cardiology History of PE/DVT(02/2019)/ (left popliteal 2017): Paroxysmal Afib Continue Eliquis BPH: Follows with Dr. Cullen outpatient Continue finasteride Gout: No active flair currently Continue allopurinol Disposition: PCP: Dr. Steve Code Status: full code VTE prophylaxis: On Eliquis Admission and Anticipated Discharge Date Admission Date: May 16, 2022 Subjective Patient seen and examined Reports feeling better today than yesterday Reported cough at home productive of yellowish sputum. Stated he had upper respiratory symptoms some weeks ago and PCP treated him. There was some improved but over the past 1-2 weeks, developed fevers, diaphoresis, muscle aches, malaise and then shortness of breath more recently. Reports chronic urinary symptoms- freq, urgency which he related to his BPH. Denied dysuria, hematuria. Denied diarrhea, abd pain, nausea, vomiting Denied chest pain, palpitations, dizziness Physical Exam Constitutional: + well hydrated and + obese; no acute distress Eyes: PERRL, conjunctivae normal, anicteric sclerae ENMT: external ear and nose normal, oropharynx normal Respiratory: normal respiratory effort, lungs clear to auscultation Cardiovascular: Rate/Rhythm: regular rate and regular rhythm S1 S2 Gastrointestinal (Abdomen): normal bowel sounds, soft, nontender, no hepatosplenomegaly Musculoskeletal: Pedal edema (L>R, stated L is always >R due to past procedure) Neurologic: PERRL, EOMI, accommodation nl, no face palsy, no dysarthria Psychiatric: A+Ox3, euthymic affect Genitourinary: No CVA tenderness Results & Data Results & Data ([facility]) Vital Signs (Past 12 Hours) Vital Signs Temp Pulse Pulse Resp BP Pulse Ox O2 Del Method 05/17/22 07:00 90 18 94 Room Air 05/17/22 06:41 36.7 C 84 16 117/80 94 Room Air 05/17/22 02:13 36.5 C 78 20 120/77 96 Room Air Laboratory Results Abnormal lab results 05/16/22 05/16/22 05/16/22 Range/Units 12:45 12:45 12:45 WBC 21.78 H (4.8-10.8) K/ul RBC 4.19 L (4.63-6.08) M/uL Hgb 13.5 L (14.0-18.0) g/dl Hct 39.7 L (40.1-51.0) % MPV 9.0 L (9.4-12.4) fL Neut # (Auto) 19.97 H (1.4-6.5) K/uL Lymph # (Auto) 0.68 L (1.2-3.4) K/uL Immature Gran # (Auto) 0.21 H (0.00-0.02) K/uL BUN (6-23) mg/dl BUN/Creatinine Ratio (10-20) Glucose 103 H (70-99(Fasting)) mg/dl AST 67 H (13-39) U/L ALT 136 H (7-52) U/L Troponin I High Sens 125.1 H* (0-20) pg/ml B-Natriuretic Peptide 400 H (0-100) pg/ml Staphylococcus sp PCR (NotDetected) Staph aureus (PCR) (NotDetected) 05/16/22 05/16/22 05/16/22 Range/Units 12:45 16:30 22:43 WBC (4.8-10.8) K/ul RBC (4.63-6.08) M/uL Hgb (14.0-18.0) g/dl Hct (40.1-51.0) % MPV (9.4-12.4) fL Neut # (Auto) (1.4-6.5) K/uL Lymph # (Auto) (1.2-3.4) K/uL Immature Gran # (Auto) (0.00-0.02) K/uL BUN (6-23) mg/dl BUN/Creatinine Ratio (10-20) Glucose (70-99(Fasting)) mg/dl AST (13-39) U/L ALT (7-52) U/L Troponin I High Sens 295.5 H* D 327.4 H* (0-20) pg/ml B-Natriuretic Peptide (0-100) pg/ml Staphylococcus sp PCR DETECTED A (NotDetected) Staph aureus (PCR) DETECTED A (NotDetected) 05/17/22 05/17/22 05/17/22 Range/Units 04:29 08:53 08:53 WBC 21.44 H (4.8-10.8) K/ul RBC 4.09 L (4.63-6.08) M/uL Hgb 13.1 L (14.0-18.0) g/dl Hct 37.7 L (40.1-51.0) % MPV (9.4-12.4) fL Neut # (Auto) (1.4-6.5) K/uL Lymph # (Auto) (1.2-3.4) K/uL Immature Gran # (Auto) (0.00-0.02) K/uL BUN 27 H (6-23) mg/dl BUN/Creatinine Ratio 28.7 H (10-20) Glucose 136 H (70-99(Fasting)) mg/dl AST (13-39) U/L ALT (7-52) U/L Troponin I High Sens 307.0 H* (0-20) pg/ml B-Natriuretic Peptide (0-100) pg/ml Staphylococcus sp PCR (NotDetected) Staph aureus (PCR) (NotDetected) (1) Aortic stenosis Cardiac valve disease etiology: nonrheumatic Qualified Code(s): I35.0 - Nonrheumatic aortic (valve) stenosis
--- NOTE | 2022-05-17 22:42 | Electrocardiogram Report ---
Test Reason : Blood Pressure : / mmHG Vent. Rate : 114 BPM Atrial Rate : 114 BPM P-R Int : 146 ms QRS Dur : 084 ms QT Int : 314 ms P-R-T Axes : 042 036 024 degrees QTc Int : 432 ms Sinus tachycardia Possible Left atrial enlargement Borderline ECG When compared with ECG of 30-DEC-2019 10:22, Vent. rate has increased BY 39 BPM Criteria for Inferior infarct are no longer Present Non-specific change in ST segment in Lateral leads Confirmed by Arnoldo Raphael ([id number]) on 05/17/2022 10:42:18 PM Referred By: REFERRED SELF Confirmed By:Arnoldo Raphael
--- NOTE | 2022-05-17 22:43 | Electrocardiogram Report ---
Test Reason : Blood Pressure : / mmHG Vent. Rate : 075 BPM Atrial Rate : 075 BPM P-R Int : 160 ms QRS Dur : 094 ms QT Int : 438 ms P-R-T Axes : 050 020 011 degrees QTc Int : 489 ms Normal sinus rhythm Possible Left atrial enlargement Prolonged QT Abnormal ECG When compared with ECG of 16-MAY-2022 12:38, Vent. rate has decreased BY 39 BPM Nonspecific T wave abnormality no longer evident in Lateral leads Confirmed by Arnoldo Raphael ([id number]) on 05/17/2022 10:42:57 PM Referred By: REFERRED SELF Confirmed By:Arnoldo Raphael
[2022-05-18] MEDS: ALBUTEROL 0.5% NEB SOLN 2.5 MG/0.5 ML VIAL NEB SCH (00:37)
[2022-05-18] MEDS ORDERED: ALBUTEROL 0.083% NEBU SOLN 3 ML VIAL NEB PRN (03:29)
[2022-05-18] MEDS: CEFEPIME 2,000 MG in SYRINGE 0 ML IV SCH (05:43)
[2022-05-18] MEDS: carvediloL 12.5 MG TAB PO SCH ×2 (05:43→17:19)
[2022-05-18 08:20] LABS: Hematocrit (blood only) 35.6 % (40.1-51.0); Hemoglobin 12.3 g/dl (14.0-18.0); Mean Corpuscular Hemoglobin 31.9 pg (25.0-34.0); Mean Corpuscular Hgb Conc 34.6 g/dL (32.0-36.0); Mean Corpuscular Volume 92.2 fL (80.0-100.0); Mean Platelet Volume 9.6 fL (9.4-12.4); Platelet Count 156 K/uL (130-400); RDW Coefficient of Variation 13.2 % (11.5-14.5); RDW Standard Deviation 44.7 fL (36.4-46.3); Red Blood Count 3.86 M/uL (4.63-6.08); White Blood Count 13.73 K/ul (4.8-10.8)
[2022-05-18 08:37] LABS: BUN Creatinine Ratio 27.4 (10-20); Calcium 8.3 mg/dl (8.5-10.1); Creatinine Clr Calc Pharmacy 74.9 ml/min; Est GFR (African American) 89.1 ml/min; Est GFR (Non-African American) 76.9 ml/min; Potassium 3.3 mmol/L (3.5-5.1)
[2022-05-18] MEDS ORDERED: FUROSEMIDE INJ 20 MG/2 ML VIAL IV ONE (09:00)
[2022-05-18] MEDS: INDAPAMIDE 1.25 MG TAB PO SCH (09:42)
[2022-05-18] MEDS: FLUTICASONE/VILANTEROL 200/25MCG 14 PUFFS/INHALER INH SCH (09:43)
[2022-05-18] MEDS: FLUTICASONE PROPIONATE NA SPR 16 GM BTL SCH (09:43)
[2022-05-18] MEDS: MAGNESIUM OXIDE 400 MG TAB PO SCH (09:44)
[2022-05-18] MEDS: FINASTERIDE 5 MG TAB PO SCH (09:44)
[2022-05-18] MEDS: ALFUZOSIN HCL 10 MG TAB PO SCH (09:44)
[2022-05-18] MEDS: OMEGA-3 (PURIFIED FISH OIL) 1 GM CAP PO SCH (09:45)
[2022-05-18] MEDS: ZINC SULFATE 220 MG CAPSULE PO SCH (09:45)
[2022-05-18] MEDS: CETIRIZINE HCL 10 MG TABLET PO SCH (09:46)
[2022-05-18] MEDS: allopurinoL 100 MG TAB PO SCH ×2 (09:46→20:23)
[2022-05-18] MEDS: APIXABAN 5 MG TABLET PO SCH ×2 (09:46→20:23)
[2022-05-18] MEDS: VITAMIN B COMPLEX TAB PO SCH (09:47)
[2022-05-18] MEDS: AZITHROMYCIN 500 MG in DEXTROSE 5% 250 ML IV SCH (09:48)
[2022-05-18] MEDS: ceFAZolin 2000MG 2,000 MG/15 ML SYR IV SCH ×2 (09:48→17:19)
--- NOTE | 2022-05-18 11:01 | Electrocardiogram Report ---
Test Reason : Blood Pressure : / mmHG Vent. Rate : 088 BPM Atrial Rate : 088 BPM P-R Int : 148 ms QRS Dur : 090 ms QT Int : 394 ms P-R-T Axes : 057 026 -08 degrees QTc Int : 476 ms Sinus rhythm with Premature atrial complexes Nonspecific T wave abnormality When compared with ECG of 17-MAY-2022 04:49, Premature atrial complexes are now Present Nonspecific T wave abnormality now present in the inferior leads Confirmed by Zane Owens ([id number]) on 05/18/2022 11:01:18 AM Referred By: REFERRED SELF Confirmed By:Zane Owens
[2022-05-18] MEDS ORDERED: POTASSIUM CHLORIDE CRTAB 20 MEQ TABCR PO STA ×2 (12:09→13:47)
--- NOTE | 2022-05-18 12:16 | Hospitalist Progress Note ---
Date of Service May 18, 2022 Assessment & Plan (1) Sepsis: (2) HTN (hypertension): (3) Aortic stenosis: (4) PAF (paroxysmal atrial fibrillation): (5) Asthma: (6) BPH w urinary obs/LUTS: Plan Sepsis History of aortic valve stenosis Leukocytosis; WBC 21.78, tachycardia, febrile at 39.4 on admission Possible sources include pulmonary. Was evaluated for Upper resp symptoms by PCP on 04/19/22 and managed for rhinitis, asthma exacerbation. Chest CTA noted cardiomegaly with interstitial edema, small pleural effusion, few low suspicion scattered pulm nodules Review of old CT chest in [facility] also noted pulm nodules in 2020 and 2017 which were stable Based on history, cannot rule out pneumonia as source Though patient reports urgency and freq, his UA is not suggestive of UTI. His urgency and freq are also chronic and may be related to his BPH. Urine culture in lab Considering valvular issues, infective endocarditis is a possibility Blood culture from 05/16/22 growing Staph aureus. 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 Will follow up about MANJINDER ID consult Pedal edema BNP 400; pulm edema on CT chest Elevated troponin likely due to demand ischemia in the setting of acute illness Possible congestive heart failure Will defer diuretic and further management of this to Cardiology History of PE/DVT(02/2019)/ (left popliteal 2017): Paroxysmal Afib Continue Eliquis BPH: Follows with Dr. Cullen outpatient Continue finasteride Gout: No active flair currently Continue allopurinol Disposition: PCP: Dr. Steve Code Status: full code VTE prophylaxis: On Eliquis Patient and (at bedside) updated Admission and Anticipated Discharge Date Admission Date: May 16, 2022 Subjective Patient seen and examined Reports no cough so far today Reports frontal sinus congestion which he stated is due to his chronic allergy/rhinitis Denied any chest pain, shortness of breath, palpitations Denied shortness of breath Denied nausea, vomiting, abd pain, diarrhea Denied dysuria, hematuria. Has chronic urgency/freq Physical Exam Constitutional: + well hydrated and + obese; no acute distress Eyes: PERRL, conjunctivae normal, anicteric sclerae ENMT: external ear and nose normal, oropharynx normal Respiratory: normal respiratory effort, lungs clear to auscultation Cardiovascular: Rate/Rhythm: regular rate and regular rhythm S1 S2 Gastrointestinal (Abdomen): normal bowel sounds, soft, nontender, no hepatosplenomegaly Musculoskeletal: Pedal edema Neurologic: PERRL, EOMI, accommodation nl, no face palsy, no dysarthria Psychiatric: A+Ox3, euthymic affect Results & Data Results & Data ([facility]) Vital Signs (Past 12 Hours) Vital Signs Temp Pulse Pulse Pulse Resp BP Pulse Ox 05/18/22 11:29 36.7 C 80 20 102/72 93 05/18/22 07:27 36.7 C 74 20 105/70 94 05/18/22 06:14 110 H 05/18/22 03:00 36.8 C 78 20 117/77 96 05/18/22 00:37 87 18 O2 Del Method 05/18/22 11:29 Room Air 05/18/22 07:27 Room Air 05/18/22 06:14 05/18/22 03:00 Room Air 05/18/22 00:37 Room Air Laboratory Results Abnormal lab results 05/18/22 05/18/22 Range/Units 07:32 07:32 WBC 13.73 H (4.8-10.8) K/ul RBC 3.86 L (4.63-6.08) M/uL Hgb 12.3 L (14.0-18.0) g/dl Hct 35.6 L (40.1-51.0) % Sodium 135 L (136-145) mmol/L Potassium 3.3 L (3.5-5.1) mmol/L BUN 26 H (6-23) mg/dl BUN/Creatinine Ratio 27.4 H (10-20) Glucose 114 H (70-99(Fasting)) mg/dl Calcium 8.3 L (8.5-10.1) mg/dl (1) Aortic stenosis Cardiac valve disease etiology: nonrheumatic Qualified Code(s): I35.0 - Nonrheumatic aortic (valve) stenosis
--- NOTE | 2022-05-18 13:37 | Cardiology Progress Note ---
Date of Service May 18, 2022 Assessment & Plan (1) Sepsis: (2) Aortic stenosis: (3) Mitral stenosis: (4) PAF (paroxysmal atrial fibrillation): (5) BPH w urinary obs/LUTS: Plan Patient presented with symptoms of body aches, shortness of breath, blood cultures performed 05/16/2022 2 yielded 2/2 bottles positive for sensitive staph aureus, repeat cultures performed 05/17 while on antibiotics preliminarily yielding ongoing bacteremia. Given predisposing heart valve disease including moderate aortic stenosis, moderate aortic stenosis, subacute bacterial endocarditis early consideration. Transthoracic echocardiogram without findings of vegetation, would agree with proceeding with transesophageal echocardiogram early next week. Consider infectious disease consultation for optimal antibiotic regimen. 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 Detailed skin exam performed today, with no skin breakdown on his feet or toes. Patient denies any oral or dental pain, has dental implants no teeth. Radiology outpatient note dating back to February,, patient had discontinued his furosemide and eplerenone due to urinary urgency. He remains on indapamide as an outpatient as well as an inpatient. Potassium 3.3 today 05/18/2022 prompting replacement with potassium chloride 40 mill equivalents x1. Plan for an additional dose of potassium chloride, repeat chemistry panel tomorrow, and repeat dose of IV furosemide 20 mg x 1 tomorrow morning 05/19/2022 optimize him from a respiratory status standpoint for MANJINDER which I anticipate will be on 05/21 Admission and Anticipated Discharge Date Admission Date: May 16, 2022 Subjective Patient seen in cardiology follow-up. Denies fevers, chills at present, shortness of breath improved. Afebrile since temperature of 39.4 measured on 05/16/2022 at 12:19 PM. Physical Exam Constitutional: WD/WN, vitals as above Respiratory: normal respiratory effort, lungs clear to auscultation Cardiovascular: Rate/Rhythm: regular rate Heart Sounds: normal S1, normal S2 and + murmur (1/ systolic murmur heard best at right sternal border) Gastrointestinal (Abdomen): normal bowel sounds, soft, nontender, no hepatosplenomegaly Neurologic: patellar DTR's 2+ bilat, sensation intact Results & Data ([facility]) Vital Signs (Past 12 Hours) Vital Signs Temp Pulse Pulse Pulse Resp BP Pulse Ox 05/18/22 11:29 36.7 C 80 20 102/72 93 05/18/22 07:27 36.7 C 74 20 105/70 94 05/18/22 06:14 110 H 05/18/22 03:00 36.8 C 78 20 117/77 96 O2 Del Method 05/18/22 11:29 Room Air 05/18/22 07:27 Room Air 05/18/22 06:14 05/18/22 03:00 Room Air Laboratory Results CBC 05/18/22 Range/Units 07:32 WBC 13.73 H (4.8-10.8) K/ul RBC 3.86 L (4.63-6.08) M/uL Hgb 12.3 L (14.0-18.0) g/dl Hct 35.6 L (40.1-51.0) % Plt Count 156 (130-400) K/uL Comprehensive Metabolic Panel 05/18/22 Range/Units 07:32 Sodium 135 L (136-145) mmol/L Potassium 3.3 L (3.5-5.1) mmol/L Chloride 99 (98-107) mmol/L Carbon Dioxide 28 (21-32) mmol/L BUN 26 H (6-23) mg/dl Creatinine 0.95 (0.6-1.4) mg/dl Glucose 114 H (70-99(Fasting)) mg/dl Calcium 8.3 L (8.5-10.1) mg/dl Intake and Output 05/17/22 05/18/22 05/18/22 22:59 06:59 14:59 Intake Total 200 / 1055 250 / 1055 255 / 255 Output Total 650 / 650 201 / 201 Balance 200 / 405 -400 / 405 54 / 54 Intake: IV 255 / 255 Azithromycin 500 mg In Dextrose 255 / 255 5% 250 ml @ 125 mls/hr IV DAILY SERA Rx#:[id number] Oral 200 / 800 250 / 800 Output: Urine 650 / 650 200 / 200 # Bowel Movements Other: # Unmeasured Voids 1 Weight 107.7 kg Weight Measurement Method Built in [facility] Diagnostic Findings EKG performed 05/18/2022 and interpreted independently: Sinus rhythm at 80 bpm with premature atrial contractions, nonspecific repolarization changes. (1) Aortic stenosis Cardiac valve disease etiology: nonrheumatic Qualified Code(s): I35.0 - Nonrheumatic aortic (valve) stenosis
[2022-05-18] MEDS ORDERED: Nursing to Pharmacy Communication SCH (14:45)
[2022-05-19] MEDS: ceFAZolin 2000MG 2,000 MG/15 ML SYR IV SCH ×3 (01:32→17:08)
[2022-05-19] MEDS: carvediloL 12.5 MG TAB PO SCH ×2 (05:12→17:08)
[2022-05-19 07:24] LABS: Hematocrit (blood only) 35.9 % (40.1-51.0); Hemoglobin 12.5 g/dl (14.0-18.0); Mean Corpuscular Hemoglobin 31.9 pg (25.0-34.0); Mean Corpuscular Hgb Conc 34.8 g/dL (32.0-36.0); Mean Corpuscular Volume 91.6 fL (80.0-100.0); Mean Platelet Volume 9.1 fL (9.4-12.4); Platelet Count 160 K/uL (130-400); RDW Coefficient of Variation 13.2 % (11.5-14.5); Red Blood Count 3.92 M/uL (4.63-6.08); White Blood Count 9.68 K/ul (4.8-10.8)
[2022-05-19] MEDS: FLUTICASONE/VILANTEROL 200/25MCG 14 PUFFS/INHALER INH SCH (07:47)
[2022-05-19] MEDS: FLUTICASONE PROPIONATE NA SPR 16 GM BTL SCH (07:47)
[2022-05-19] MEDS: allopurinoL 100 MG TAB PO SCH ×2 (07:48→21:56)
[2022-05-19] MEDS: VITAMIN B COMPLEX TAB PO SCH (07:48)
[2022-05-19] MEDS: ALFUZOSIN HCL 10 MG TAB PO SCH (07:48)
[2022-05-19] MEDS: APIXABAN 5 MG TABLET PO SCH ×2 (07:48→21:56)
[2022-05-19] MEDS: OMEGA-3 (PURIFIED FISH OIL) 1 GM CAP PO SCH (07:48)
[2022-05-19] MEDS: FINASTERIDE 5 MG TAB PO SCH (07:48)
[2022-05-19] MEDS: ZINC SULFATE 220 MG CAPSULE PO SCH (07:48)
[2022-05-19 07:49] LABS: BUN Creatinine Ratio 26.8 (10-20); Calcium 8.3 mg/dl (8.5-10.1); Creatinine Clr Calc Pharmacy 86.3 ml/min; Est GFR (African American) 98.9 ml/min; Est GFR (Non-African American) 85.3 ml/min; Potassium 3.5 mmol/L (3.5-5.1)
[2022-05-19] MEDS: MAGNESIUM OXIDE 400 MG TAB PO SCH (07:49)
[2022-05-19] MEDS: INDAPAMIDE 1.25 MG TAB PO SCH (07:49)
[2022-05-19] MEDS: AZITHROMYCIN 500 MG in DEXTROSE 5% 250 ML IV SCH (07:49)
[2022-05-19] MEDS: CETIRIZINE HCL 10 MG TABLET PO SCH (07:49)
[2022-05-19] MEDS ORDERED: FUROSEMIDE INJ 20 MG/2 ML VIAL IV ONE ×2 (07:53→09:00)
--- NOTE | 2022-05-19 10:34 | Hospitalist Progress Note ---
Date of Service May 19, 2022 Assessment & Plan (1) Sepsis: (2) HTN (hypertension): (3) Aortic stenosis: (4) PAF (paroxysmal atrial fibrillation): (5) Asthma: (6) BPH w urinary obs/LUTS: Plan Sepsis History of aortic valve stenosis Leukocytosis; WBC 21.78, tachycardia, febrile at 39.4 on admission Possible sources include pulmonary. Was evaluated for Upper resp symptoms by PCP on 04/19/22 and managed for rhinitis, asthma exacerbation. Chest CTA noted cardiomegaly with interstitial edema, small pleural effusion, few low suspicion scattered pulm nodules Review of old CT chest in [facility] also noted pulm nodules in 2020 and 2017 which were stable Based on history, cannot rule out pneumonia as source Though patient reports urgency and freq, his UA is not suggestive of UTI. His urgency and freq are also chronic and may be related to his BPH. Urine culture is negative Considering valvular issues, infective endocarditis is a possibility Blood culture from 05/16/22 growing Staph aureus. 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 Plan for MANJINDER on friday Will keep NPO PMN Friday night I discussed with Dr Nguyen (ID) via transfer center. He agrees with current plans, to continue ancef, get MANJINDER, serial blood cultures and stop azithro since patient has got 3 days of that. Will get official ID consult within the week Pedal edema BNP 400; pulm edema on CT chest Elevated troponin likely due to demand ischemia in the setting of acute illness Possible congestive heart failure Diuretic management of this to Cardiology History of PE/DVT(02/2019)/ (left popliteal 2017): Paroxysmal Afib Continue Eliquis BPH: Follows with Dr. Cullen outpatient Continue finasteride Gout: No active flair currently Continue allopurinol Disposition: PCP: Dr. Steve Code Status: full code VTE prophylaxis: On Eliquis Admission and Anticipated Discharge Date Admission Date: May 16, 2022 Subjective Patient seen and examined Reported cough overnight Denied any chest pain, shortness of breath, palpitations Denied shortness of breath Denied nausea, vomiting, abd pain, diarrhea Denied dysuria, hematuria. Has chronic urgency/freq Physical Exam Constitutional: + well hydrated and + obese; no acute distress Eyes: PERRL, conjunctivae normal, anicteric sclerae ENMT: external ear and nose normal, oropharynx normal Respiratory: normal respiratory effort, lungs clear to auscultation Cardiovascular: Rate/Rhythm: regular rate and regular rhythm S1 S2 Gastrointestinal (Abdomen): normal bowel sounds, soft, nontender, no hepatosplenomegaly Musculoskeletal: Pedal edema Neurologic: PERRL, EOMI, accommodation nl, no face palsy, no dysarthria Psychiatric: A+Ox3, euthymic affect Results & Data Results & Data ([facility]) Vital Signs (Past 12 Hours) Vital Signs Temp Pulse Pulse Resp BP Pulse Ox O2 Del Method 05/19/22 08:46 36.9 C 81 18 99/65 L 92 Room Air 05/19/22 02:47 36.5 C 82 20 119/83 93 Room Air 05/18/22 22:50 81 05/18/22 22:45 36.4 C L 79 20 112/73 93 Room Air Laboratory Results Abnormal lab results 05/19/22 05/19/22 Range/Units 07:04 07:04 RBC 3.92 L (4.63-6.08) M/uL Hgb 12.5 L (14.0-18.0) g/dl Hct 35.9 L (40.1-51.0) % MPV 9.1 L (9.4-12.4) fL BUN/Creatinine Ratio 26.8 H (10-20) Glucose 100 H (70-99(Fasting)) mg/dl Calcium 8.3 L (8.5-10.1) mg/dl (1) Aortic stenosis Cardiac valve disease etiology: nonrheumatic Qualified Code(s): I35.0 - Nonrheumatic aortic (valve) stenosis
--- NOTE | 2022-05-19 17:21 | Cardiology Progress Note ---
Date of Service May 19, 2022 Assessment & Plan (1) Sepsis: (2) Aortic stenosis: (3) Mitral stenosis: (4) PAF (paroxysmal atrial fibrillation): (5) BPH w urinary obs/LUTS: Plan Patient presented with symptoms of body aches, shortness of breath, blood cultures performed 05/16/2022 2 yielded 2/2 bottles positive for sensitive staph aureus, repeat cultures performed 05/17 while on antibiotics preliminarily yielding ongoing bacteremia. Given predisposing heart valve disease including moderate aortic stenosis, moderate aortic stenosis, subacute bacterial endocarditis early consideration. Transthoracic echocardiogram without findings of vegetation, would agree with proceeding with transesophageal echocardiogram early next week. Consider infectious disease consultation for optimal antibiotic regimen. 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 Detailed skin exam performed today, with no skin breakdown on his feet or toes. Patient denies any oral or dental pain, has dental implants no teeth. Radiology outpatient note dating back to February,, patient had discontinued his furosemide and eplerenone due to urinary urgency. He remains on indapamide as an outpatient as well as an inpatient. Potassium 3.5 today 05/19/2022 prompting replacement with potassium chloride 40 mill equivalents x1. Plan for MANJINDER with Dr. Bueno, likely on 05/21 Admission and Anticipated Discharge Date Admission Date: May 16, 2022 Subjective Patient seen and examined. Chart reviewed. Telemetry reviewed. Currently resting comfortably stating that he feels well other than a slight nonproductive cough. Review of Systems Review of Systems: All systems reviewed & are unremarkable except as noted in HPI & below Physical Exam Physical Exam: General: Awake, alert and oriented x 3. No acute distress. HEENT: Normocephalic, atraumatic. Pupils equal, round and reactive to light and accommodation. Extraocular muscles are intact. Anicteric sclera. Moist mucous membranes. Neck: No JVD. No bruit. Cardiovascular: Regular. Positive S-4. Normal S-1 and S-2. No S-3. 3/6 mid to late systolic ejection murmur, greatest at the right sternal border, second intercostal space with radiation to the bilateral carotids. No rubs. Pulmonary: Clear to auscultation bilaterally. No rales, rhonchi, or wheezing. Abdomen: Bowel sounds x 4, soft. No rebound, guarding or tenderness. No organomegaly. Extremities: No clubbing, cyanosis or edema. +2 pedal pulses bilaterally. Skin: Warm and dry. Results & Data ([facility]) Vital Signs (Past 12 Hours) Vital Signs Temp Pulse Pulse Resp BP Pulse Ox O2 Del Method 05/19/22 17:06 36.5 C 86 18 159/94 H 92 Room Air 05/19/22 11:30 36.4 C L 75 18 126/88 96 Room Air 05/19/22 10:00 81 05/19/22 08:46 36.9 C 81 18 99/65 L 92 Room Air (1) Aortic stenosis Cardiac valve disease etiology: nonrheumatic Qualified Code(s): I35.0 - Nonr heumatic aortic (valve) stenosis
[2022-05-19] MEDS ORDERED: POTASSIUM CHLORIDE CRTAB 20 MEQ TABCR PO STA (17:22)
[2022-05-20] MEDS: ceFAZolin 2000MG 2,000 MG/15 ML SYR IV SCH ×3 (03:08→17:58)
[2022-05-20] MEDS: carvediloL 12.5 MG TAB PO SCH ×2 (05:48→17:57)
[2022-05-20 07:39] LABS: Hemoglobin 13.9 g/dl (14.0-18.0); Mean Corpuscular Hgb Conc 34.8 g/dL (32.0-36.0); Mean Platelet Volume 9.4 fL (9.4-12.4); Platelet Count 192 K/uL (130-400); RDW Coefficient of Variation 12.9 % (11.5-14.5); RDW Standard Deviation 43.4 fL (36.4-46.3); Red Blood Count 4.35 M/uL (4.63-6.08); White Blood Count 10.42 K/ul (4.8-10.8)
[2022-05-20 07:58] LABS: BUN Creatinine Ratio 22.9 (10-20); Calcium 9.1 mg/dl (8.5-10.1); Est GFR (African American) 98.4 ml/min; Est GFR (Non-African American) 84.9 ml/min; Phosphorus 3.3 mg/dl (2.5-4.9); Potassium 3.6 mmol/L (3.5-5.1)
[2022-05-20] MEDS ORDERED: FUROSEMIDE INJ 20 MG/2 ML VIAL IV ONE (08:11)
[2022-05-20] MEDS: FLUTICASONE PROPIONATE NA SPR 16 GM BTL SCH (09:36)
[2022-05-20] MEDS: FLUTICASONE/VILANTEROL 200/25MCG 14 PUFFS/INHALER INH SCH (09:36)
[2022-05-20] MEDS: allopurinoL 100 MG TAB PO SCH ×2 (09:37→20:18)
[2022-05-20] MEDS: APIXABAN 5 MG TABLET PO SCH ×2 (09:37→20:19)
[2022-05-20] MEDS: ALFUZOSIN HCL 10 MG TAB PO SCH (09:38)
[2022-05-20] MEDS: VITAMIN B COMPLEX TAB PO SCH (09:38)
[2022-05-20] MEDS: CETIRIZINE HCL 10 MG TABLET PO SCH (09:38)
[2022-05-20] MEDS: POTASSIUM CHLORIDE CRTAB 20 MEQ TABCR PO SCH ×2 (09:38→20:18)
[2022-05-20] MEDS: FINASTERIDE 5 MG TAB PO SCH (09:38)
[2022-05-20] MEDS: INDAPAMIDE 1.25 MG TAB PO SCH (09:38)
[2022-05-20] MEDS: MAGNESIUM OXIDE 400 MG TAB PO SCH (09:39)
[2022-05-20] MEDS: ZINC SULFATE 220 MG CAPSULE PO SCH (09:39)
[2022-05-20] MEDS: OMEGA-3 (PURIFIED FISH OIL) 1 GM CAP PO SCH (09:39)
--- NOTE | 2022-05-20 10:44 | Hospitalist Progress Note ---
Date of Service May 20, 2022 Assessment & Plan (1) Sepsis: (2) HTN (hypertension): (3) Aortic stenosis: (4) PAF (paroxysmal atrial fibrillation): (5) Asthma: (6) BPH w urinary obs/LUTS: Plan Sepsis History of aortic valve stenosis Leukocytosis; WBC 21.78, tachycardia, febrile at 39.4 on admission Possible sources include pulmonary. Was evaluated for Upper resp symptoms by PCP on 04/19/22 and managed for rhinitis, asthma exacerbation. Chest CTA noted cardiomegaly with interstitial edema, small pleural effusion, few low suspicion scattered pulm nodules Review of old CT chest in [facility] also noted pulm nodules in 2020 and 2017 which were stable Based on history, cannot rule out pneumonia as source Though patient reports urgency and freq, his UA is not suggestive of UTI. His urgency and freq are also chronic and may be related to his BPH. Urine culture is negative Considering valvular issues, infective endocarditis is a possibility Blood culture from 05/16/22 growing Staph aureus. 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 Plan for MANJINDER tomorrow Will keep NPO PMN tonight On 05/19/22, I discussed with Dr Nguyen (ID) via transfer center. He agrees with current plans, to continue ancef, get MANJINDER, serial blood cultures Awaiting official ID consult Pedal edema BNP 400; pulm edema on CT chest Elevated troponin likely due to demand ischemia in the setting of acute illness Possible congestive heart failure Diuretic management by Cardiology History of PE/DVT(02/2019)/ (left popliteal 2017): Paroxysmal Afib Continue Eliquis BPH: Follows with Dr. Cullen outpatient Continue finasteride Gout: No active flair currently Continue allopurinol Disposition: PCP: Dr. Steve Code Status: full code VTE prophylaxis: On Eliquis Admission and Anticipated Discharge Date Admission Date: May 16, 2022 Subjective Patient seen and examined Reports feeling better today Denied cough today Denied any chest pain, shortness of breath, palpitations Denied shortness of breath Denied nausea, vomiting, abd pain, diarrhea Denied dysuria, hematuria. Has chronic obstructive urinary symptoms from BPH Physical Exam Constitutional: + well hydrated and + obese; no acute distress Eyes: PERRL, conjunctivae normal, anicteric sclerae ENMT: external ear and nose normal, oropharynx normal Respiratory: normal respiratory effort, lungs clear to auscultation Cardiovascular: Rate/Rhythm: regular rate and regular rhythm S1 S2, BRUCE Gastrointestinal (Abdomen): normal bowel sounds, soft, nontender, no hepatosplenomegaly Musculoskeletal: +Pedal edema Neurologic: PERRL, EOMI, accommodation nl, no face palsy, no dysarthria Psychiatric: A+Ox3, euthymic affect Results & Data Results & Data ([facility]) Vital Signs (Past 12 Hours) Vital Signs Temp Pulse Pulse Resp BP Pulse Ox O2 Del Method 05/20/22 07:00 73 05/20/22 07:55 36.3 C L 77 126/84 94 Room Air 05/20/22 03:13 36.8 C 75 16 114/78 95 Room Air 05/19/22 23:57 94 Room Air 05/19/22 23:54 37.3 C 75 18 121/81 90 Room Air Laboratory Results Abnormal lab results 05/20/22 05/20/22 Range/Units 07:06 07:06 RBC 4.35 L (4.63-6.08) M/uL Hgb 13.9 L (14.0-18.0) g/dl Hct 40.0 L (40.1-51.0) % BUN/Creatinine Ratio 22.9 H (10-20) (1) Aortic stenosis Cardiac valve disease etiology: nonrheumatic Qualified Code(s): I35.0 - Nonrheumatic aortic (valve) stenosis
[2022-05-20] MEDS: ACETAMINOPHEN 325 MG TAB PO PRN (11:19)
--- NOTE | 2022-05-20 11:24 | Cardiology Progress Note ---
Date of Service May 20, 2022 Assessment & Plan (1) Sepsis: (2) Aortic stenosis: (3) Mitral stenosis: (4) PAF (paroxysmal atrial fibrillation): (5) BPH w urinary obs/LUTS: Plan Patient presented with symptoms of body aches, shortness of breath, blood cultures performed 05/16/2022 2 yielded 2/2 bottles positive for sensitive staph aureus, repeat cultures performed 05/17 while on antibiotics yielding ongoing bacteremia. /, 05/18 positive for staph aureus. Images of the transthoracic echocardiogram performed this admission as well as previous outpatient study performed January, reviewed independently. Patient has longstanding history of severe mitral annular calcification which is unchanged. Moderate mitral stenosis/moderate aortic stenosis, relatively unchanged compared to 2020. The transthoracic echocardiogram is insufficient for excluding vegetation. Continue to optimize volume status, likely for MANJINDER 05/21 depending on clinical reassessment. Furosemide 20 mg IV x 1 today. Replace potassium. Continue Eliquis for stroke/DVT prophylaxis given history of paroxysmal atrial fibrillation. NPO after Midnight, tentative MANJINDER 05/21. Admission and Anticipated Discharge Date Admission Date: May 16, 2022 Subjective Patient is seen in cardiology follow-up. Remains afebrile. Received 20 mg of IV furosemide on 05/19, with over 1 L of urine output. Respiratory status appears to be improving. Physical Exam Constitutional: WD/WN, vitals as above Respiratory: normal respiratory effort, lungs clear to auscultation Cardiovascular: Rate/Rhythm: regular rate Heart Sounds: normal S1, normal S2 and + murmur (1/ systolic murmur heard best at right sternal border) Gastrointestinal (Abdomen): normal bowel sounds, soft, nontender, no hepatosplenomegaly Neurologic: patellar DTR's 2+ bilat, sensation intact Results & Data ([facility]) Vital Signs (Past 12 Hours) Vital Signs Temp Pulse Pulse Resp BP Pulse Ox O2 Del Method 05/20/22 07:00 73 05/20/22 07:55 36.3 C L 77 126/84 94 Room Air 05/20/22 03:13 36.8 C 75 16 114/78 95 Room Air 05/19/22 23:57 94 Room Air 05/19/22 23:54 37.3 C 75 18 121/81 90 Room Air Laboratory Results CBC 05/20/22 Range/Units 07:06 WBC 10.42 (4.8-10.8) K/ul RBC 4.35 L (4.63-6.08) M/uL Hgb 13.9 L (14.0-18.0) g/dl Hct 40.0 L (40.1-51.0) % Plt Count 192 (130-400) K/uL Comprehensive Metabolic Panel 05/20/22 Range/Units 07:06 Sodium 136 (136-145) mmol/L Potassium 3.6 (3.5-5.1) mmol/L Chloride 101 (98-107) mmol/L Carbon Dioxide 30 (21-32) mmol/L BUN 19 (6-23) mg/dl Creatinine 0.83 (0.6-1.4) mg/dl Glucose 93 (70-99(Fasting)) mg/dl Calcium 9.1 (8.5-10.1) mg/dl Intake and Output 05/19/22 05/20/22 05/20/22 22:59 06:59 14:59 Intake Total 300 / 555 Output Total 225 / 225 Balance 75 / 330 Intake: Oral 300 / 300 Output: Urine 225 / 225 Other: Other Intake Source sips with meds Weight 103.6 kg Weight Measurement Method Built in [facility] (1) Aortic stenosis Cardiac valve disease etiology: nonrheumatic Qualified Code(s): I35.0 - Nonrheumatic aortic (valve) stenosis
[2022-05-21] MEDS: ceFAZolin 2000MG 2,000 MG/15 ML SYR IV SCH ×3 (03:55→17:35)
[2022-05-21] MEDS: carvediloL 12.5 MG TAB PO SCH ×2 (06:23→17:35)
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
--- NOTE | 2022-05-21 07:23 | History & Physical Bridge Note ---
Date of Service May 21, 2022 History & Physical Bridge Note I have examined the patient, reviewed the History & Physical and in the interval since the performance of the History & Physical I have noted the following changes of clinical significance: no changes noted. Informed consent for MANJINDER obtained. Patient elects to proceed.
[2022-05-21] MEDS ORDERED: BENZOCAINE/TETRACAIN/BUTAM 50 APPLN/5 GM CAN EXT ONE (07:24)
[2022-05-21] MEDS ORDERED: KETAMINE 50 MG/5 ML SYRINGE ONE (07:24)
--- NOTE | 2022-05-21 08:10 | Post Operative Brief Note ---
Cardiology Brief Post Op Date of Surgery May 21, 2022 Pre & Post Diagnosis Preprocedure diagnosis: Staph aureus bacteremia, evaluate for endocarditis Post procedure diagnosis: Severe mitral annular calcification, mild mitral stenosis, moderate aortic stenosis, unable to exclude vegetation Operation Date: 05/21/22 07:15 Procedure Transesophageal echocardiogram procedure: After informed consent was obtained and a timeout was performed the patient was sedated with the assistance of the anesthesia service receiving a total of 200 mg of IV propofol and 200 mcg of phenylephrine for blood pressure support. The patient has a previously known history of severe mitral annular calcification and mitral stenosis. Although no definite vegetation was visualized, due to the underlying calcification of the mitral valve and aortic valve, it is felt that the presence of a vegetation cannot be excluded. Recommend long-term antibiotics for presumed endocarditis and close clinical follow-up. Early Childhood Associate Teacher Rosalio Bueno DO [employer] Patcher Helper Eboni Barbosa, [facility] Estimated Blood Loss 0 Findings Consistent with Post-Op Diagnosis as noted above Anesthesia Type MAC
--- NOTE | 2022-05-21 08:36 | Anesthesiology Progress Note ---
Date of Service May 21, 2022 Anesthesia Post Procedure Vital Signs Vital Signs: Temp Pulse Pulse Pulse Resp BP BP 05/21/22 08:14 77 13 97/70 L 05/21/22 08:05 75 13 77/53 L 05/21/22 07:00 84 05/21/22 07:16 90 16 100/94 05/21/22 02:30 36.8 C 82 18 103/62 05/20/22 20:00 05/21/22 00:00 86 05/20/22 23:58 36.5 C 76 18 104/63 05/20/22 20:13 36.8 C 82 18 109/75 05/20/22 15:29 36.7 C 83 20 110/78 Pulse Ox O2 Del Method O2 Flow Rate 05/21/22 08:14 92 Room Air 05/21/22 08:05 95 Oxymask 7 05/21/22 07:00 05/21/22 07:16 93 Room Air 05/21/22 02:30 94 Room Air 05/20/22 20:00 Room Air 05/21/22 00:00 05/20/22 23:58 95 Room Air 05/20/22 20:13 92 Room Air 05/20/22 15:29 94 Room Air Transfer of Care Handoff Completed per policy Notes Mental Status: alert / awake / arousable Patient Amnestic to Procedure: Yes Nausea / Vomiting: adequately controlled Pain: adequately controlled Airway Patency, RR, SpO2: stable & adequate BP & HR: stable & adequate Hydration State: stable & adequate Anesthetic Complications: no major complications apparent
[2022-05-21 08:44] LABS: Hematocrit (blood only) 39.8 % (40.1-51.0); Hemoglobin 13.5 g/dl (14.0-18.0); Mean Corpuscular Hemoglobin 31.5 pg (25.0-34.0); Mean Corpuscular Hgb Conc 33.9 g/dL (32.0-36.0); Mean Platelet Volume 9.4 fL (9.4-12.4); Platelet Count 206 K/uL (130-400); RDW Coefficient of Variation 13.1 % (11.5-14.5); RDW Standard Deviation 44.3 fL (36.4-46.3); Red Blood Count 4.28 M/uL (4.63-6.08); White Blood Count 9.22 K/ul (4.8-10.8)
[2022-05-21] MEDS ORDERED: PHENYLEPHRINE HCL 10 MG/ML VIAL ONE (08:46)
[2022-05-21] MEDS ORDERED: LIDOCAINE 2% MPF LOCAL 5 ML VIAL INFIL ONE (08:46)
[2022-05-21] MEDS ORDERED: PROPOFOL IV EMULSION 10 MG/ML 20 ML VIAL IV ONE (08:46)
[2022-05-21 09:03] LABS: BUN Creatinine Ratio 28.6 (10-20); Calcium 8.7 mg/dl (8.5-10.1); Est GFR (African American) 97.9 ml/min; Est GFR (Non-African American) 84.5 ml/min; Potassium 3.4 mmol/L (3.5-5.1)
[2022-05-21] MEDS: APIXABAN 5 MG TABLET PO SCH ×2 (09:17→20:21)
[2022-05-21] MEDS: ZINC SULFATE 220 MG CAPSULE PO SCH (09:17)
[2022-05-21] MEDS: ALFUZOSIN HCL 10 MG TAB PO SCH (09:17)
[2022-05-21] MEDS: OMEGA-3 (PURIFIED FISH OIL) 1 GM CAP PO SCH (09:17)
[2022-05-21] MEDS: POTASSIUM CHLORIDE CRTAB 20 MEQ TABCR PO SCH ×2 (09:18→20:21)
[2022-05-21] MEDS: FLUTICASONE PROPIONATE NA SPR 16 GM BTL SCH (09:18)
[2022-05-21] MEDS: CETIRIZINE HCL 10 MG TABLET PO SCH (09:18)
[2022-05-21] MEDS: VITAMIN B COMPLEX TAB PO SCH (09:18)
[2022-05-21] MEDS: INDAPAMIDE 1.25 MG TAB PO SCH (09:18)
[2022-05-21] MEDS: allopurinoL 100 MG TAB PO SCH ×2 (09:18→20:20)
[2022-05-21] MEDS: MAGNESIUM OXIDE 400 MG TAB PO SCH (09:18)
[2022-05-21] MEDS: FLUTICASONE/VILANTEROL 200/25MCG 14 PUFFS/INHALER INH SCH (09:18)
[2022-05-21] MEDS: FINASTERIDE 5 MG TAB PO SCH (09:18)
--- NOTE | 2022-05-21 11:22 | Hospitalist Progress Note ---
Date of Service May 21, 2022 Assessment & Plan (1) Sepsis: (2) HTN (hypertension): (3) Aortic stenosis: (4) PAF (paroxysmal atrial fibrillation): (5) Asthma: (6) BPH w urinary obs/LUTS: Plan Sepsis History of aortic valve stenosis Leukocytosis; WBC 21.78, tachycardia, febrile at 39.4 on admission Possible sources include pulmonary. Was evaluated for Upper resp symptoms by PCP on 04/19/22 and managed for rhinitis, asthma exacerbation. Chest CTA noted cardiomegaly with interstitial edema, small pleural effusion, few low suspicion scattered pulm nodules [facility] of [facility] also noted pulm nodules in 2020 and 2017 which were stable Based on history, cannot rule out pneumonia as source Though patient reports urgency and freq, his UA is not suggestive of UTI. His urgency and freq are also chronic and may be related to his BPH. Urine culture is negative Considering valvular issues, infective endocarditis is a possibility Blood culture from 05/16/22 growing Staph aureus. Blood culture PCR confirms MSSA Serial blood cultures on 05/17 and 05/18 still growing Staph aureus Blood culture from 05/19 negative so far Leukocytosis is resolved TTE noted mod conc LVH, EF 50-55%, severeley dilated LA, sclerotic and calcified AV, mod Aortic stenosis, calcified mitral apparatus causing mitral stenosis, mod mitral stenosis, mild tricuspid regurgitation, no evidence of mass or vegetation Had MANJINDER today. Discussed with Simulation Analyst Dr Bueno. No definite vegetation was visualized but due to underlying calcification of mitral valve and aortic valve which are previously known, vegetation cannot be excluded Will likely need 6 weeks antibiotics IV. However, will await ID consult Pedal edema BNP 400; pulm edema on CT chest Elevated troponin likely due to demand ischemia in the setting of acute illness Possible congestive heart failure Diuretic management by Cardiology History of PE/DVT(02/2019)/ (left popliteal 2017): Paroxysmal Afib Continue Eliquis BPH: Follows with Dr. Cullen outpatient Continue finasteride Gout: No active flair currently Continue allopurinol Disposition: PCP: Dr. Steve Code Status: full code VTE prophylaxis: On Eliquis Admission and Anticipated Discharge Date Admission Date: May 16, 2022 Subjective Patient seen and examined Reports feeling better Reports occasional cough Denied any chest pain, shortness of breath, palpitations Denied shortness of breath Denied nausea, vomiting, abd pain, diarrhea Denied dysuria, hematuria. Has chronic obstructive urinary symptoms from BPH Had MANJINDER this morning Physical Exam Constitutional: + well hydrated and + obese; no acute distress Eyes: PERRL, conjunctivae normal, anicteric sclerae ENMT: external ear and nose normal, oropharynx normal Respiratory: normal respiratory effort, lungs clear to auscultation Cardiovascular: Rate/Rhythm: regular rate and regular rhythm S1 S2, systolic murmur Gastrointestinal (Abdomen): normal bowel sounds, soft, nontender, no hepatosplenomegaly Musculoskeletal: +pedal edema Neurologic: PERRL, EOMI, accommodation nl, no face palsy, no dysarthria Psychiatric: A+Ox3, euthymic affect Results & Data Results & Data ([facility]) Vital Signs (Past 12 Hours) Vital Signs Temp Pulse Pulse Pulse Resp BP BP 05/21/22 09:06 37 C 05/21/22 08:36 36.9 C 122/74 05/21/22 08:06 36.8 C 88 18 138/77 05/21/22 08:14 77 13 97/70 L 05/21/22 08:05 75 13 77/53 L 05/21/22 07:00 84 05/21/22 07:16 90 16 100/94 05/21/22 02:30 36.8 C 82 18 103/62 05/21/22 00:00 86 05/20/22 23:58 36.5 C 76 18 104/63 Pulse Ox O2 Del Method O2 Flow Rate 05/21/22 09:06 05/21/22 08:36 05/21/22 08:06 100 Room Air 05/21/22 08:14 92 Room Air 05/21/22 08:05 95 Oxymask 7 05/21/22 07:00 05/21/22 07:16 93 Room Air 05/21/22 02:30 94 Room Air 05/21/22 00:00 05/20/22 23:58 95 Room Air Laboratory Results Abnormal lab results 05/21/22 05/21/22 Range/Units 08:27 08:27 RBC 4.28 L (4.63-6.08) M/uL Hgb 13.5 L (14.0-18.0) g/dl Hct 39.8 L (40.1-51.0) % Potassium 3.4 L (3.5-5.1) mmol/L BUN 24 H (6-23) mg/dl BUN/Creatinine Ratio 28.6 H (10-20) (1) Aortic stenosis Cardiac valve disease etiology: nonrheumatic Qualified Code(s): I35.0 - Nonrheumatic aortic (valve) stenosis (2) Sepsis Sepsis acute organ dysfunction status: unspecified Sepsis type: sepsis due to unspecified organism Qualified Code(s): A41.9 - Sepsis, unspecified organism
--- NOTE | 2022-05-21 15:16 | Cardiology Progress Note ---
Date of Service May 21, 2022 Assessment & Plan (1) Sepsis: (2) Aortic stenosis: (3) Mitral stenosis: (4) PAF (paroxysmal atrial fibrillation): (5) BPH w urinary obs/LUTS: Plan Patient presented with symptoms of body aches, shortness of breath, blood cultures performed 05/16/2022 2 yielded 2/2 bottles positive for sensitive staph aureus, repeat cultures performed 05/17 while on antibiotics yielding ongoing bacteremia. /, 05/18 positive for staph aureus. Cultures 05/19- no growth thus far. Images of the transthoracic echocardiogram performed this admission as well as previous outpatient study performed January, reviewed independently. Patient has longstanding history of severe mitral annular calcification which is unchanged. No obvious vegetation seen on MANJINDER. The echodensity noted at the posterior, right lateral aspect of the mitral valve annulus is consistent with severe mitral annular calcification, it was present on the previous transthoracic study dating back to 2020, however given the patient's underlying structural heart valve disease, I do not think that endocarditis is excluded based on the MANJINDER results, and would recommend long-term antibiotics, and close clinical follow-up with consideration of repeat MANJINDER after 6 weeks of antibiotics. Resume oral furosemide tomorrow. Potassium replacement ordered. Case discussed with Dr Trammell by phone for the purpose of coordinating care. Admission and Anticipated Discharge Date Admission Date: May 16, 2022 Subjective Patient seen in cardiology follow-up. Respiratory status is improved today. Denies subjective fever. Underwent transesophageal echocardiogram with results noted below. Physical Exam Constitutional: WD/WN, vitals as above Respiratory: normal respiratory effort, lungs clear to auscultation Cardiovascular: Rate/Rhythm: regular rate Heart Sounds: normal S1, normal S2 and + murmur (1/ systolic murmur heard best at right sternal border) Gastrointestinal (Abdomen): normal bowel sounds, soft, nontender, no hepatosplenomegaly Neurologic: PERRL, EOMI, accommodation nl, no face palsy, no dysarthria Results & Data ([facility]) Vital Signs (Past 12 Hours) Vital Signs Temp Pulse Pulse Pulse Resp BP BP 05/21/22 13:06 36.5 C 05/21/22 12:01 80 20 110/82 05/21/22 09:06 37 C 05/21/22 08:36 36.9 C 122/74 05/21/22 08:06 36.8 C 88 18 138/77 05/21/22 08:14 77 13 97/70 L 05/21/22 08:05 75 13 77/53 L 05/21/22 07:00 84 05/21/22 07:16 90 16 100/94 Pulse Ox O2 Del Method O2 Flow Rate 05/21/22 13:06 05/21/22 12:01 96 Room Air 05/21/22 09:06 05/21/22 08:36 05/21/22 08:06 100 Room Air 05/21/22 08:14 92 Room Air 05/21/22 08:05 95 Oxymask 7 05/21/22 07:00 05/21/22 07:16 93 Room Air Laboratory Results CBC 05/21/22 Range/Units 08:27 WBC 9.22 (4.8-10.8) K/ul RBC 4.28 L (4.63-6.08) M/uL Hgb 13.5 L (14.0-18.0) g/dl Hct 39.8 L (40.1-51.0) % Plt Count 206 (130-400) K/uL Comprehensive Metabolic Panel 05/21/22 Range/Units 08:27 Sodium 137 (136-145) mmol/L Potassium 3.4 L (3.5-5.1) mmol/L Chloride 103 (98-107) mmol/L Carbon Dioxide 27 (21-32) mmol/L BUN 24 H (6-23) mg/dl Creatinine 0.84 (0.6-1.4) mg/dl Glucose 99 (70-99(Fasting)) mg/dl Calcium 8.7 (8.5-10.1) mg/dl Intake and Output 05/21/22 05/21/22 05/21/22 06:59 14:59 22:59 Intake Total 0 / 300 Output Total 150 / 1050 500 / 500 Balance -150 / -750 -500 / -500 Intake: Oral 0 / 300 Output: Urine 150 / 1050 500 / 500 Other: Other Intake Source NPO Weight 103.6 kg 103.6 kg Weight Measurement Method Built in [facility] Patient Weight 05/22/22 06:59 Weight 103.6 kg Diagnostic Findings A transesophageal echocardiogram study was technically difficult, with suboptimal acoustic windows. There is severe mitral annular calcification. Significant mitral regurgitation is absent. By 2D criteria, moderate mitral stenosis appears to be present, the mean diastolic gradient=5 mm Hg. Although no definite valvular vegetation or abscess is observed, given the underlying structural heart disease, the presence of a vegetation cannot be excluded. The aortic valve is moderately calcified. Moderate valvular aortic stenosis. Cannot exclude aortic valvular vegetation. (1) Sepsis Sepsis acute organ dysfunction status: unspecified Sepsis type: sepsis due to unspecified organism Qualified Code(s): A41.9 - Sepsis, unspecified organism (2) Aortic stenosis Cardiac valve disease etiology: nonrheumatic Qualified Code(s): I35.0 - Nonrheumatic aortic (valve) stenosis
[2022-05-22] MEDS: ceFAZolin 2000MG 2,000 MG/15 ML SYR IV SCH ×3 (02:18→18:38)
[2022-05-22] MEDS: carvediloL 12.5 MG TAB PO SCH ×2 (06:11→18:38)
[2022-05-22] MEDS: FLUTICASONE PROPIONATE NA SPR 16 GM BTL SCH (08:35)
[2022-05-22] MEDS: FLUTICASONE/VILANTEROL 200/25MCG 14 PUFFS/INHALER INH SCH (08:35)
[2022-05-22] MEDS: allopurinoL 100 MG TAB PO SCH ×2 (08:36→20:10)
[2022-05-22] MEDS: CETIRIZINE HCL 10 MG TABLET PO SCH (08:36)
[2022-05-22] MEDS: FINASTERIDE 5 MG TAB PO SCH (08:36)
[2022-05-22] MEDS: POTASSIUM CHLORIDE CRTAB 20 MEQ TABCR PO SCH ×2 (08:36→20:11)
[2022-05-22] MEDS: APIXABAN 5 MG TABLET PO SCH ×2 (08:36→20:10)
[2022-05-22] MEDS: VITAMIN B COMPLEX TAB PO SCH (08:37)
[2022-05-22] MEDS: FUROSEMIDE 20 MG TAB PO SCH (08:37)
[2022-05-22] MEDS: ZINC SULFATE 220 MG CAPSULE PO SCH (08:37)
[2022-05-22] MEDS: OMEGA-3 (PURIFIED FISH OIL) 1 GM CAP PO SCH (08:37)
[2022-05-22] MEDS: INDAPAMIDE 1.25 MG TAB PO SCH (08:37)
[2022-05-22] MEDS: MAGNESIUM OXIDE 400 MG TAB PO SCH (08:37)
[2022-05-22] MEDS: ALFUZOSIN HCL 10 MG TAB PO SCH (08:37)
[2022-05-22 08:41] LABS: Hematocrit (blood only) 41.6 % (40.1-51.0); Hemoglobin 14.2 g/dl (14.0-18.0); Mean Corpuscular Hemoglobin 32.1 pg (25.0-34.0); Mean Corpuscular Hgb Conc 34.1 g/dL (32.0-36.0); Mean Corpuscular Volume 93.9 fL (80.0-100.0); Mean Platelet Volume 9.1 fL (9.4-12.4); Platelet Count 200 K/uL (130-400); RDW Coefficient of Variation 13.1 % (11.5-14.5); RDW Standard Deviation 45.2 fL (36.4-46.3); Red Blood Count 4.43 M/uL (4.63-6.08)
[2022-05-22 09:26] LABS: BUN Creatinine Ratio 26.4 (10-20); Calcium 8.8 mg/dl (8.5-10.1); Creatinine Clr Calc Pharmacy 80.3 ml/min; Est GFR (African American) 96.5 ml/min; Est GFR (Non-African American) 83.2 ml/min; Magnesium 1.9 mg/dl (1.7-2.4); Phosphorus 2.8 mg/dl (2.5-4.9); Potassium 3.4 mmol/L (3.5-5.1)
--- NOTE | 2022-05-22 15:26 | Cardiology Progress Note ---
Date of Service May 22, 2022 Assessment & Plan (1) Sepsis: (2) Aortic stenosis: (3) Mitral stenosis: (4) PAF (paroxysmal atrial fibrillation): (5) BPH w urinary obs/LUTS: Plan Patient presented with symptoms of body aches, shortness of breath, blood cultures =sensitive staph aureus. Pt remains afebrile. No obvious vegetation seen on MANJINDER. The echodensity noted at the posterior, right lateral aspect of the mitral valve annulus is consistent with severe mitral annular calcification, it was present on the previous transthoracic study dating back to 2020, however given the patient's underlying structural heart valve disease, I do not think that endocarditis is excluded based on the MANJINDER results, and would recommend long-term antibiotics, and close clinical follow-up with consideration of repeat MANJINDER after 6 weeks of antibiotics. Await ID input with regards to antibiotic plan. Will need home health arranged. Furosemide 20 mg PO daily, ICE CREAM FREEZER ASSISTANT indapamide. Potassium replacement. Pt remains in SR. Continue Eliquis for h/o paroxysmal atrial fibrillation. Admission and Anticipated Discharge Date Admission Date: May 16, 2022 Subjective Patient seen in cardiology follow up. Spouse with him at the bedside. Pt seen in telemedicine consultation by ID, PICC line placed. Telemetry reveals SR in the 80s. Physical Exam Constitutional: WD/WN, vitals as above Respiratory: normal respiratory effort, lungs clear to auscultation Cardiovascular: Rate/Rhythm: regular rate Heart Sounds: normal S1, normal S2 and + murmur (1/ systolic murmur heard best at right sternal border) Gastrointestinal (Abdomen): normal bowel sounds, soft, nontender, no hepatosplenomegaly Neurologic: patellar DTR's 2+ bilat, sensation intact and PERRL, EOMI, accommodation nl, no face palsy, no dysarthria Results & Data ([facility]) Vital Signs (Past 12 Hours) Vital Signs Temp Pulse Pulse Resp BP Pulse Ox O2 Del Method 05/22/22 11:49 37 C 83 17 119/81 96 Room Air 05/22/22 08:12 37.2 C 70 18 112/85 96 Room Air 05/22/22 07:00 79 05/22/22 03:51 36.6 C 80 18 128/81 94 Room Air Laboratory Results CBC 05/22/22 Range/Units 08:33 WBC 9.20 (4.8-10.8) K/ul RBC 4.43 L (4.63-6.08) M/uL Hgb 14.2 (14.0-18.0) g/dl Hct 41.6 (40.1-51.0) % Plt Count 200 (130-400) K/uL Comprehensive Metabolic Panel 05/22/22 Range/Units 08:33 Sodium 137 (136-145) mmol/L Potassium 3.4 L (3.5-5.1) mmol/L Chloride 102 (98-107) mmol/L Carbon Dioxide 26 (21-32) mmol/L BUN 23 (6-23) mg/dl Creatinine 0.87 (0.6-1.4) mg/dl Glucose 143 H (70-99(Fasting)) mg/dl Calcium 8.8 (8.5-10.1) mg/dl (1) Sepsis Sepsis acute organ dysfunction status: unspecified Sepsis type: sepsis due to unspecified organism Qualified Code(s): A41.9 - Sepsis, unspecified organism (2) Aortic stenosis Cardiac valve disease etiology: nonrheumatic Qualified Code(s): I35.0 - Nonrheumatic aortic (valve) stenosis
--- NOTE | 2022-05-22 17:01 | Hospitalist Progress Note ---
Date of Service May 22, 2022 Assessment & Plan (1) Sepsis: (2) HTN (hypertension): (3) Aortic stenosis: (4) PAF (paroxysmal atrial fibrillation): (5) Asthma: (6) BPH w urinary obs/LUTS: Plan Sepsis Aortic stenosis Mitral stenosis MSSA Bacteremia Endocarditis cannot be excluded --ECHO: No evidence of mass or vegetation. This does not rule out endocarditis. Moderate concentric LVH. Left ventricle systolic function is normal. EF 50- 55%. Right ventricle systolic function is normal. Left atrium is severely dilated. Right atrial size is normal. Arctic valve sclerotic and calcified. Moderate valvular aortic stenosis. Calcified mitral apparatus causing mitral s tenosis. There is moderate mitral stenosis. There is mild tricuspid regurgitation. There is arctic root sclerosis/calcification. --MANJINDER on 05/11/22: No definite vegetation was visualized but due to underlying calcification of mitral valve and aortic valve which are previously known, vegetation cannot be excluded --CTA :cardiomegaly with interstitial edema, small pleural effusion, few low suspicion scattered pulm nodules Review of old CT chest in [facility] also noted pulm nodules in 2020 and 2017 which were stable --Considering valvular issues, infective endocarditis is a possibility Blood culture from 05/16/22 growing Staph aureus. Blood culture PCR confirms MSSA Serial blood cultures on 05/17 and 05/18 still growing Staph aureus Blood culture from 05/19 negative to date -- Appreciate cardiology, ID input Plan to continue IV cefazolin for 6 weeks Needs weekly CBC, BMP while on IV antibiotic Needs follow-up with ID televideo upon discharge in 4 weeks PICC line requested Valvular heart disease Pedal edema Elevated troponin likely due to demand ischemia in the setting of acute illness Possible congestive heart failure Continue lasix Appreciate Cardiology Input H/O PE/DVT(02/2019)/ (left popliteal 2017): Paroxysmal Afib Continue Eliquis Continue carvedilol BPH: Follows with Dr. Cullen outpatient Continue finasteride Gout: Continue allopurinol DVT Px: On Eliquis Code Status Full Code Admission and Anticipated Discharge Date Admission Date: May 16, 2022 Subjective Patient is seen and examined at bedside Offers no complaints Eager to get discharged Discussed with patient's family at bedside Denies any chest pain, shortness of breath, dizziness, nausea, abdominal pain Review of Systems Review of Systems: All systems reviewed & are unremarkable except as noted in Subjective Physical Exam Physical Exam: Physical Exam: Vitals signs as noted above General Appearance:Obese, no apparent distress Head: normocephalic, Atraumatic Eyes: normal inspection, EOMI Neck: supple, Trachea midline Respiratory/Chest: Normal breath sounds, CTA, No accessory muscle use Cardiovascular: S1, S2, + murmur Abdomen/GI:Soft, Non tender, Bowel sounds present Extremities/Musculoskeletal:normal inspection, 1+ LE edema Neurologic/Psych:AAOX3, grossly no focal neurological deficits Skin: normal color, warm Results & Data Results & Data ([facility]) Vital Signs (Past 12 Hours) Vital Signs Temp Pulse Pulse Resp BP Pulse Ox O2 Del Method 05/22/22 15:48 37.2 C 94 H 18 119/76 94 Room Air 05/22/22 11:49 37 C 83 17 119/81 96 Room Air 05/22/22 08:12 37.2 C 70 18 112/85 96 Room Air 05/22/22 07:00 79 Laboratory Results Short CBC 05/22/22 Range/Units 08:33 WBC 9.20 (4.8-10.8) K/ul Hgb 14.2 (14.0-18.0) g/dl Hct 41.6 (40.1-51.0) % Plt Count 200 (130-400) K/uL BMP 05/22/22 08:33 Sodium 137 Potassium 3.4 L Chloride 102 Carbon Dioxide 26 BUN 23 Creatinine 0.87 Glucose 143 H Calcium 8.8 (1) Sepsis Sepsis acute organ dysfunction status: unspecified Sepsis type: sepsis due to unspecified organism Qualified Code(s): A41.9 - Sepsis, unspecified organism (2) Aortic stenosis Cardiac valve disease etiology: nonrheumatic Qualified Code(s): I35.0 - Nonrheumatic aortic (valve) stenosis
[2022-05-22] MEDS: ACETAMINOPHEN 325 MG TAB PO PRN (23:18)
[2022-05-23] MEDS: ceFAZolin 2000MG 2,000 MG/15 ML SYR IV SCH ×3 (04:23→17:48)
[2022-05-23] MEDS: carvediloL 12.5 MG TAB PO SCH (05:38)
[2022-05-23 06:11] LABS: BUN Creatinine Ratio 23.7 (10-20); Calcium 8.7 mg/dl (8.5-10.1); Creatinine Clr Calc Pharmacy 75.2 ml/min; Est GFR (African American) 91.5 ml/min; Est GFR (Non-African American) 78.9 ml/min; Potassium 3.7 mmol/L (3.5-5.1)
[2022-05-23] MEDS: ALFUZOSIN HCL 10 MG TAB PO SCH (09:22)
[2022-05-23] MEDS: POTASSIUM CHLORIDE CRTAB 20 MEQ TABCR PO SCH (09:22)
[2022-05-23] MEDS: VITAMIN B COMPLEX TAB PO SCH (09:22)
[2022-05-23] MEDS: OMEGA-3 (PURIFIED FISH OIL) 1 GM CAP PO SCH (09:22)
[2022-05-23] MEDS: ZINC SULFATE 220 MG CAPSULE PO SCH (09:22)
[2022-05-23] MEDS: APIXABAN 5 MG TABLET PO SCH (09:22)
[2022-05-23] MEDS: MAGNESIUM OXIDE 400 MG TAB PO SCH (09:22)
[2022-05-23] MEDS: CETIRIZINE HCL 10 MG TABLET PO SCH (09:23)
[2022-05-23] MEDS: FUROSEMIDE 20 MG TAB PO SCH (09:23)
[2022-05-23] MEDS: FINASTERIDE 5 MG TAB PO SCH (09:23)
[2022-05-23] MEDS: allopurinoL 100 MG TAB PO SCH (09:23)
[2022-05-23] MEDS: INDAPAMIDE 1.25 MG TAB PO SCH (09:23)
[2022-05-23] MEDS: FLUTICASONE/VILANTEROL 200/25MCG 14 PUFFS/INHALER INH SCH (09:23)
[2022-05-23] MEDS: FLUTICASONE PROPIONATE NA SPR 16 GM BTL SCH (09:24)
--- NOTE | 2022-05-23 13:43 | Cardiology Progress Note ---
Date of Service May 23, 2022 Assessment & Plan (1) Sepsis: (2) Aortic stenosis: (3) Mitral stenosis: (4) PAF (paroxysmal atrial fibrillation): (5) BPH w urinary obs/LUTS: Plan Patient presented with symptoms of body aches, shortness of breath, blood cultures =sensitive staph aureus. ID consult note in his [facility] chart, I will facilitate having [facility]. Plan for 6 weeks of IV cefazolin. Anticipate discharge once home health is set up. Stable from my standpoint for transfer off of telemetry. I have requested a cardiology follow-up visit within a month at [facility] In addition to prior to hospital treatment with indapamide, patient to be discharged on furosemide 20 mg daily in the morning, potassium chloride 20 mill equivalents twice daily. Admission and Anticipated Discharge Date Admission Date: May 16, 2022 Subjective Patient seen in cardiology follow-up. Denies chest discomfort or shortness of breath. Denies subjective fever. Results & Data ([facility]) Vital Signs (Past 12 Hours) Vital Signs Temp Pulse Pulse Resp BP Pulse Ox O2 Del Method 05/23/22 13:20 36.7 C 80 16 114/79 95 Room Air 05/23/22 12:40 36.6 C 78 18 111/77 95 Room Air 05/23/22 08:00 75 05/23/22 08:06 36.8 C 73 16 121/72 96 Room Air 05/23/22 04:00 36.6 C 86 98 H 140/90 98 Room Air (1) Sepsis Sepsis acute organ dysfunction status: unspecified Sepsis type: sepsis due to unspecified organism Qualified Code(s): A41.9 - Sepsis, unspecified organism (2) Aortic stenosis Cardiac valve disease etiology: nonrheumatic Qualified Code(s): I35.0 - Nonrheumatic aortic (valve) stenosis
--- NOTE | 2022-05-23 16:31 | Hospitalist Progress Note ---
Date of Service May 23, 2022 Assessment & Plan (1) Sepsis: (2) HTN (hypertension): (3) Aortic stenosis: (4) PAF (paroxysmal atrial fibrillation): (5) Asthma: (6) BPH w urinary obs/LUTS: Plan Sepsis Aortic stenosis Mitral stenosis MSSA Bacteremia Endocarditis cannot be excluded --ECHO: No evidence of mass or vegetation. This does not rule out endocarditis. Moderate concentric LVH. Left ventricle systolic function is normal. EF 50- 55%. Right ventricle systolic function is normal. Left atrium is severely dilated. Right atrial size is normal. Arctic valve sclerotic and calcified. Moderate valvular aortic stenosis. Calcified mitral apparatus causing mitral s tenosis. There is moderate mitral stenosis. There is mild tricuspid regurgitation. There is arctic root sclerosis/calcification. --MANJINDER on 05/11/22: No definite vegetation was visualized but due to underlying calcification of mitral valve and aortic valve which are previously known, vegetation cannot be excluded --CTA :cardiomegaly with interstitial edema, small pleural effusion, few low suspicion scattered pulm nodules Review of old CT chest in [facility] also noted pulm nodules in 2020 and 2017 which were stable --Considering valvular issues, infective endocarditis is a possibility Blood culture from 05/16/22 growing Staph aureus. Blood culture PCR confirms MSSA Serial blood cultures on 05/17 and 05/18 still growing Staph aureus Blood culture from 05/19 negative to date -- Appreciate cardiology, ID input Initial plan is to continue IV cefazolin for 6 weeks Needs weekly CBC, BMP while on IV antibiotic Needs follow-up with ID televideo upon discharge in 4 weeks PICC line Placed Case management had difficulty arranging Home Health for IV antibiotics Discussed with Infectious Disease on 05/23/22: Recommends to switch IV cefazolin to IV ceftriaxone 2 g daily for 6 weeks for ease of administration Case management to arrange for [facility] IV antibiotic infusions Plan to discharge home once arranged Valvular heart disease Pedal edema Elevated troponin likely due to demand ischemia in the setting of acute illness Possible congestive heart failure Continue Lasix Appreciate Cardiology Input H/O PE/DVT(02/2019)/ (left popliteal 2017): Paroxysmal Afib Continue Eliquis Continue carvedilol BPH: Follows with Dr. Cullen outpatient Continue finasteride Gout: Continue allopurinol DVT Px: On Eliquis Code Status Full Code Admission and Anticipated Discharge Date Admission Date: May 16, 2022 Subjective Patient is seen and examined at bedside Doing well No complaints Discussed with Infectious disease today Denies any chest pain, shortness of breath, dizziness, nausea, abdominal pain Review of Systems Review of Systems: All systems reviewed & are unremarkable except as noted in Subjective Physical Exam Physical Exam: Physical Exam: Vitals signs as noted above General Appearance:Obese, no apparent distress Head: normocephalic, Atraumatic Eyes: normal inspection, EOMI Neck: supple, Trachea midline Respiratory/Chest: Normal breath sounds, CTA, No accessory muscle use Cardiovascular: S1, S2, + murmur Abdomen/GI:Soft, Non tender, Bowel sounds present Extremities/Musculoskeletal:normal inspection, 1+ LE edema Neurologic/Psych:AAOX3, grossly no focal neurological deficits Skin: normal color, warm Results & Data Results & Data ([facility]) Vital Signs (Past 12 Hours) Vital Signs Temp Pulse Pulse Pulse Resp BP Pulse Ox 05/23/22 15:25 36.9 C 83 18 99/63 L 93 05/23/22 13:20 36.7 C 80 16 114/79 95 05/23/22 12:40 36.6 C 78 18 111/77 95 05/23/22 08:00 75 05/23/22 08:06 36.8 C 73 16 121/72 96 O2 Del Method 05/23/22 15:25 Room Air 05/23/22 13:20 Room Air 05/23/22 12:40 Room Air 05/23/22 08:00 05/23/22 08:06 Room Air Laboratory Results [facility] 05/23/22 05:34 Sodium 139 Potassium 3.7 Chloride 104 Carbon Dioxide 30 BUN 22 Creatinine 0.93 Glucose 99 Calcium 8.7 (1) Sepsis Sepsis acute organ dysfunction status: unspecified Sepsis type: sepsis due to unspecified organism Qualified Code(s): A41.9 - Sepsis, unspecified organism (2) Aortic stenosis Cardiac valve disease etiology: nonrheumatic Qualified Code(s): I35.0 - Nonrh eumatic aortic (valve) stenosis
--- NOTE | 2022-05-23 16:45 | Discharge Summary ---
Date of Service May 23, 2022 Admission HPI Per Admitting Provider Mr. Mckeon is a 76-year-old male that presented to the [facility] ED with shortness of breath. Patient stated that since last Friday he has experienced intermittent fever and chills. 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 He said on the last day which was Friday he struggled to complete the performance. He felt that he was improving however yesterday he started to have difficulty with his breathing especially lying flat. In the ED he was found to be febrile 39.4, tachycardic low 100s and with. increased swelling in his lower extremities along with crackles in his lower bas some leukocytosis was noted with a WBC count 21.78. Chest x-ray shows pulmonary edema and pleural effusions with multiple solid nodules measuring 5 mm. 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 fib, OA . Patient does follow with Dr. Ford as an outpatient for his aortic stenosis and there was the possibility discussed of early onset CHF. He had an ECHO scheduled for a few weeks from now. Patient does meet sepsis criteria for admission. Patient denies tobacco use, does have a medical marijuana card for tincture for pain related to arthritis, and he does drink 1 to 2 glasses of wine per evening with his dinner. His last echocardiogram was in 2020 EF 60%. Patient will be admitted for further evaluation and management. Please see A/P for further details Admission Exam Per Admitting Provider Physical Exam Physical Exam: Neuro: AAOx4, PERRLA, no aphagia, memory changes, CNII-XII gr ossly intact HEENT: head normocephalic, moist mucus membranes CV: S1/S2, (-) M/G/R, (+) BL LE + 1 edema, cap refill < 3 seconds (-) JVD Resp: Lungs CTA in all rosales. On RA GI: Abdomen S/NT/ND, Ax4 bowel sounds, (-) CVA tenderness Musculoskeletal: 5/5 B/L UE strength, 5/5 B/L LE strength. No gait disturbance Skin: (-) rashes , (-) erythema. 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 Discharge Data Allergies Allergy/AdvReac Type Severity Reaction Status Date / Time doxycycline Allergy Severe LIVER/KIDNEY Verified 05/16/22 15:52 PROBLEMS mold Allergy Mild Congested Verified 05/16/22 15:53 pollen extracts Allergy Mild Congested Verified 05/16/22 15:53 dust Allergy Mild Congested Uncoded 05/16/22 15:53 Consultations 05/16/22 15:34 Consult Cardiology Routine 05/16/22 17:14 ED Decision to Admit Stat 05/18/22 12:17 Consult Infectious Diseases Routine 05/20/22 11:25 Consult Anesthesiology Routine 05/21/22 16:24 Consult Infectious Diseases Routine Procedures Performed Operation Date: 05/21/22 07:15 Actual Procedures p Echo Transesophageal - DO esther Vicente Doppler Echo Limited/Follow Up - DO esther Vicente Echo Color Flow - Rosalio Bueno DO Ordered Studies 05/16/22 13:43 CT angio chest PE protocol Stat Laboratory Results WBC 9.20 K/ul (4.8-10.8) 05/22/22 08:33 RBC 4.43 M/uL (4.63-6.08) L 05/22/22 08:33 Hgb 14.2 g/dl (14.0-18.0) 05/22/22 08:33 Hct 41.6 % (40.1-51.0) 05/22/22 08:33 MCV 93.9 fL (80.0-100.0) 05/22/22 08:33 MCH 32.1 pg (25.0-34.0) 05/22/22 08:33 MCHC 34.1 g/dL (32.0-36.0) 05/22/22 08:33 RDW Std Deviation 45.2 fL (36.4-46.3) 05/22/22 08:33 RDW Coeff of Hanh 13.1 % (11.5-14.5) 05/22/22 08:33 Plt Count 200 K/uL (130-400) 05/22/22 08:33 MPV 9.1 fL (9.4-12.4) L 05/22/22 08:33 Immature Gran % (Auto) 1.0 % 05/16/22 12:45 Neut % (Auto) 91.7 % 05/16/22 12:45 Lymph % (Auto) 3.1 % 05/16/22 12:45 Traverse % (Auto) 3.7 % 05/16/22 12:45 Eos % (Auto) 0.3 % 05/16/22 12:45 Baso % (Auto) 0.2 % 05/16/22 12:45 Neut # (Auto) 19.97 K/uL (1.4-6.5) H 05/16/22 12:45 Lymph # (Auto) 0.68 K/uL (1.2-3.4) L 05/16/22 12:45 Traverse # (Auto) 0.81 K/uL (0.24-0.82) 05/16/22 12:45 Eos # (Auto) 0.06 K/uL (0-0.50) 05/16/22 12:45 Baso # (Auto) 0.05 K/uL (0-0.2) 05/16/22 12:45 Immature Gran # (Auto) 0.21 K/uL (0.00-0.02) H 05/16/22 12:45 Sodium 139 mmol/L (136-145) 05/23/22 05:34 Potassium 3.7 mmol/L (3.5-5.1) 05/23/22 05:34 Chloride 104 mmol/L (98-107) 05/23/22 05:34 Carbon Dioxide 30 mmol/L (21-32) 05/23/22 05:34 Anion Gap 5 (3-11) 05/23/22 05:34 BUN 22 mg/dl (6-23) 05/23/22 05:34 Creatinine 0.93 mg/dl (0.6-1.4) 05/23/22 05:34 Est Cr Clr Drug Dosing 75.2 ml/min 05/23/22 05:34 Est GFR ( Amer) 91.5 ml/min 05/23/22 05:34 Est GFR (Non-Af Amer) 78.9 ml/min 05/23/22 05:34 BUN/Creatinine Ratio 23.7 (10-20) H 05/23/22 05:34 Glucose 99 mg/dl (70-99(Fasting)) 05/23/22 05:34 Lactate 1.3 mmol/L (0.4-2.0) 05/16/22 16:30 Calcium 8.7 mg/dl (8.5-10.1) 05/23/22 05:34 Phosphorus 2.8 mg/dl (2.5-4.9) 05/22/22 08:33 Magnesium 1.9 mg/dl (1.7-2.4) 05/22/22 08:33 Total Bilirubin 0.7 mg/dl (0.2-1.0) 05/16/22 12:45 AST 67 U/L (13-39) H 05/16/22 12:45 ALT 136 U/L (7-52) H 05/16/22 12:45 Alkaline Phosphatase 103 U/L (34-104) 05/16/22 12:45 Troponin I High Sens 307.0 pg/ml (0-20) H* 05/17/22 04:29 B-Natriuretic Peptide 400 pg/ml (0-100) H 05/16/22 12:45 Total Protein 6.0 gm/dl (6.0-8.3) 05/16/22 12:45 Albumin 3.4 gm/dl (3.4-5.0) 05/16/22 12:45 Globulin 2.6 gm/dl (2.5-4.0) 05/16/22 12:45 Albumin/Globulin Ratio 1.3 (0.9-2) 05/16/22 12:45 Procalcitonin 0.26 ng/ml (0-0.5) 05/16/22 12:45 Urine Color Yellow 05/17/22 05:06 Urine Appearance Clear (Clear) 05/17/22 05:06 Urine pH 5.5 (4.5-7.5) 05/17/22 05:06 Ur Specific [place] 1.030 (1.000-1.030) 05/17/22 05:06 Urine Protein Negative (Negative) 05/17/22 05:06 Urine Glucose (UA) Negative (Negative) 05/17/22 05:06 Urine Ketones Negative (Negative) 05/17/22 05:06 Urine Blood Negative (Negative) 05/17/22 05:06 Urine Nitrite Negative (Negative) 05/17/22 05:06 Urine Bilirubin Negative (Negative) 05/17/22 05:06 Urine Urobilinogen Negative (Negative) 05/17/22 05:06 Ur Leukocyte Esterase Negative (Negative) 05/17/22 05:06 Nasal Screen MRSA (PCR) Negative (Negative) 05/17/22 11:02 SARS-CoV-2 (PCR) NEGATIVE (Negative) 05/16/22 12:45 Influenza Type A (PCR) Negative (Neg) 05/16/22 12:45 Influenza Type B (PCR) Negative (Neg) 05/16/22 12:45 RSV (RT-PCR) Negative (Neg) 05/16/22 12:45 Staphylococcus sp PCR DETECTED (NotDetected) A 05/16/22 12:45 Staph aureus (PCR) DETECTED (NotDetected) A 05/16/22 12:45 mecA/C & MREJ Resist Gene MRSA Not Detected (NotDetected) 05/16/22 12:45 Bld Cult ID Panel PCR See PCR Comment (NotDetected) 05/16/22 12:45 Impressions Chest X-Ray 05/16/22 12:42 XR chest 1V portable CLINICAL HISTORY: Dyspnea TECHNIQUE: Single frontal radiograph of the chest was obtained. Comparison: Comparison is made to chest radiograph dated 11/13/2019 FINDINGS: No lines and tubes are seen. Cardiomegaly is noted. There is prominence and cephalization of the vasculature with Sammi B lines seen. No evidence of ple ural effusion or pneumothorax. IMPRESSION: Cardiomegaly and moderate pulmonary edema. ACT 112: Negative or not required by law. Electronically signed by: Idris Jain M.D. 05/16/2022 1:27 PM Chest CTA 05/16/22 13:43 CT angio chest PE protocol CT DOSE: 708.42 mGy.cm HISTORY: 76 years-old Male with PE. Acute shortness of breath with cough TECHNIQUE: Multiple CTA images of the chest were obtained after the intravenous administration of 108 ml Optiray. Coronal and sagittal MIPS were obtained from the axial data set and were submitted for review. All measurements were obtained according to NASCET criteria. A dose lowering technique was utilized adhering to the principles of ALARA. COMPARISON: Chest radiograph of same day FINDINGS: CTA: Cardiomegaly without pericardial effusion. Extensive coronary arterial and mitral annular calcifications. Atherosclerosis of the aorta without aneurysm or dissection. Descending thoracic aortic tortuosity. No pulmonary emboli are identified. CT CHEST: No thyroid nodule identified. Mildly enlarged mediastinal and hilar lymph nodes measure up to approximate 1.2 cm. Small pleural effusions. Mild dependent subsegmental bibasilar consolidation. Intralobular and bronchial wall thickening. 5 mm fissural nodule of the right middle lobe, image 143. 4 mm fissural nodule of the right midlung, image 148.There are a few additional scattered solid pulmonary nodules which are likely benign measuring up to 2 to 3 mm. Central airways are patent. Indeterminate 9 mm hypodense focus of the right hepatic lobe. Hepatic steatosis with hepatosplenomegaly. Mild generalized body wall edema with gynecomastia. Mid thoracic dextroscoliosis. Healed chronic right-sided rib fractures. IMPRESSION: 1. Cardiomegaly with interstitial pulmonary edema. 2. Small pleural effusions with mild dependent bibasilar atelectasis. 3. There are a few low suspicion scattered solid pulmonary nodules measuring up to 5 mm. 4. Hepatic steatosis with suggestion of hepatosplenomegaly. Please refer to below summary of Fleischner criteria recommendations for follow- up of incidental CT nodules (Vanessa Larson, Guidelines for management of small pulmonary nodules detected on CT scans: A statement from the Fleischner Society, Radiology 237: [phone].) SOLID NODULES Multiple nodules size: <6 mm * Low risk patients: no routine follow-up * high risk patients: optional CT at 12 months Note: newly detected indeterminate nodule in persons 35 years of age or older. * Low risk patients: minimal or absent history of smoking and/or other known risk factors * high risk patients: history of smoking or of other known risk factors (e.g. first degree relative with lung cancer, or exposure to asbestos, radon, uranium) * if a nodule up to 8 mm is partly solid or is ground glass further follow-up is required after 24 months to exclude possible slow growing adenocarcinoma (KELLY) ACT 112: Negative or not required by law. The above report was generated using voice recognition software. It may contain grammatical, syntax or spelling errors. Electronically signed by: Edilberto Cruz M.D. 05/16/2022 2:56 PM Hospital Course (1) Sepsis: (2) HTN (hypertension): (3) Aortic stenosis: (4) PAF (paroxysmal atrial fibrillation): (5) Asthma: (6) BPH w urinary obs/LUTS: Plan Sepsis Aortic stenosis Mitral stenosis MSSA Bacteremia Endocarditis cannot be excluded --ECHO: No evidence of mass or vegetation. This does not rule out endocarditis. Moderate concentric LVH. Left ventricle systolic function is normal. EF 50- 55%. Right ventricle systolic function is normal. Left atrium is severely dilated. Right atrial size is normal. Arctic valve sclerotic and calcified. Moderate valvular aortic stenosis. Calcified mitral apparatus causing mitral stenosis. There is moderate mitral stenosis. There is mild tricuspid regurgitation. There is arctic root sclerosis/calcification. --MANJINDER on 05/11/22: No definite vegetation was visualized but due to underlying calcification of mitral valve and aortic valve which are previously known, vegetation cannot be excluded --CTA :cardiomegaly with interstitial edema, small pleural effusion, few low suspicion scattered pulm nodules Review of old CT chest in [facility] also noted pulm nodules in 2020 and 2017 which were stable --Considering valvular issues, infective endocarditis is a possibility Blood culture from 05/16/22 growing Staph aureus. Blood culture PCR confirms MSSA Serial blood cultures on 05/17 and 05/18 still growing Staph aureus Blood culture from 05/19 negative to date -- Appreciate cardiology, ID input Initial plan is to continue IV cefazolin for 6 weeks Needs weekly CBC, BMP while on IV antibiotic Needs follow-up with ID televideo upon discharge in 4 weeks PICC line Placed Case management had difficulty arranging Home Health for IV antibiotics Discussed with Infectious Disease on 05/23/22: Recommends to switch IV cefazolin to IV ceftriaxone 2 g daily for 6 weeks for ease of administration Case management to arrange for MTU IV antibiotic infusions Plan to discharge home once arranged Valvular heart disease Pedal edema Elevated troponin likely due to demand ischemia in the setting of acute illness Possible congestive heart failure Continue Lasix Appreciate Cardiology Input H/O PE/DVT(02/2019)/ (left popliteal 2017): Paroxysmal Afib Continue Eliquis Continue carvedilol BPH: Follows with Dr. 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 Activity: Per Instructions section Exercise/Sports: Wait until after follow-up appointment Non-emergency contact: Primary Care Provider, Specialist and Registered Clinical Dietitian Call non-emergency contact if: you have any medication questions, your symptoms worsen, your pain is concerning for you and you have a fever Follow-up/Referrals: Jm Ford MD [Physician] - (Date & Time 06/20/2022 10:00 AM Provider Jm Ford MD Department Cardiology, [facility] ) Alex Steve DO [Primary Care Provider] - (Date & Time 05/30/2022 2:00 PM Provider Sheila Nayak DO Department Family Practice [facility] ) Diet: Heart Healthy Diet Texture: Easy to Chew Addtl Attending Provider Instructions: Follow-up with your primary care physician Dr. Steve on 05/30/2022 at 2:00 PM Follow-up with your collarette separator Dr. Ford on 06/20/2022 10:00 AM as scheduled Follow-up with your infectious disease DrSalena Nguyen in 4 weeks -- Complete IV antibiotic course: Ceftriaxone 2 grams daily until Jun 30 2022 as recommended by your infectious disease physician. --Get Blood test (weekly CBC, BMP while on IV antibiotics) and follow-up with your physician with results. -- Start taking Lasix 20 mg daily and potassium chloride 20 mEq twice a day as recommended by your collarette separator. Seek immediate medical attention if your symptoms reoccur or worsen Please take all medications as instructed on discharge list below. Please call if you have any questions or problems. You can reach a [facility] hospitalist on duty at [facility] 24 hours a day by calling [phone] Pending Studies at Discharge: Yes Studies:: Blood cultures from 05/19/22 Stand-Alone Forms: My [facility], Smoking Cessation Medications and DC Order Prescriptions: New potassium chloride 20 mEq Tablet,Er Particles/Crystals 20 meq PO BID Qty: 60 0RF furosemide 20 mg Tablet 20 mg PO QAM Qty: 30 0RF ceftriaxone 2 gram recon soln 2 g IV DAILY Qty: 1 0RF Rx Instructions: As directed Continued carvedilol 12.5 mg Tablet 12.5 mg PO Q12H cetirizine 10 mg Tablet 10 mg PO QAM indapamide 2.5 mg Tablet 2.5 mg PO QAM allopurinol 100 mg Tablet 200 mg PO BID albuterol sulfate 90 mcg/actuation Hfa Aerosol Inhaler 1 inh INHALATION QID PRN (Reason: sob) apixaban 5 mg Tablet 5 mg PO BID selenium 50 mcg Tablet 50 mcg PO QAM vitamin B complex Capsule 1 cap PO QAM budesonide-formoterol [Symbicort] 160-4.5 mcg/actuation Hfa Aerosol Inhaler 1 inh INHALATION BID turmeric 400 mg Capsule 400 mg PO QAM Tripple Mushroom Complex 1 cap PO QAM alfuzosin [Uroxatral] 10 mg tablet extended release 24 hr 10 mg PO QAM Rx Instructions: administer after the same meal each day finasteride 5 mg tablet 5 mg PO DAILY omega-3 fatty acids 1,000 mg Capsule 1,000 mg PO QAM magnesium oxide 500 mg Tablet 500 mg PO QAM zinc acetate 50 mg (zinc) Capsule 50 mg PO QAM coenzyme Q10 [Co Q-10] 100 mg Capsule 100 mg PO QAM mometasone 50 mcg/actuation [place],Non-Aerosol 2 spray INTRANASAL DAILY Rx Instructions: administer into each nostril Quercetin With Bromelain 1 tab PO DAILY Discharge Orders: Discharge Order (Routine); Ordered 05/23/22 Ordered By: Sanjay Gutiérrez Admission Data Admit Date/Time: 05/16/22 15:34 Attending Provider: Sanjay Gutiérrez Admit Provider: Ermelinda Campbell Primary Care Provider: Alex Steve Other Providers: Joaquin Centeno ; Michael Cantu ; Derick Gonzalez I. ; Jose Alfredo Kline II ; Terra Sherwood ; Luis Fernando Nieves ; Vinicio Luong ; eJsús Nguyen ; [facility],Home Healthcare ; Jordin Riggins ; Ermelinda Campbell ; Dion Ramirez
== END 2022-05-23 18:17 | disposition home or self-care (01) | DRG 871 ==
LOC: ED 12:30 → SUATTDRO 15:34 → EDINP 15:34 → 2S 19:16 → 3N 05-23 13:12

== ENCOUNTER 2022-07-03 18:58 | Inpatient (IN) ==
[2022-07-03] MEDS ORDERED: ACETAMINOPHEN 1,000 MG/100 ML VIAL IV STA (19:35)
[2022-07-03] MEDS ORDERED: SODIUM CHLORIDE 0.9% 1000ML 1,000 ML IV SCH (19:45)
--- NOTE | 2022-07-03 19:57 | XRay Report ---
SINGLE VIEW CHEST CLINICAL HISTORY: Sepsis. FINDINGS: An AP, portable, upright chest radiograph is compared to study dated 05/16/2022. The heart is enlarged measuring atherosclerotic calcification of the thoracic aorta. There is pulmonary vascula r congestion. Scarring/atelectasis is noted at both lung bases. No large pleural effusion or pneumoth orax is seen. The skeletal structures are osteopenic. There is chronic deformity of the right anterio r ribs. IMPRESSION: Cardiomegaly with evidence of congestive failure. ACT 112: Negative or not required by law. Electronically signed by: Jayson Huffman M.D. 07/03/2022 7:55 PM
[2022-07-03 20:27] LABS: Hematocrit (blood only) 37.5 % (42.0-52.0); Mean Corpuscular Hemoglobin 31.7 pg (25.0-34.0); Mean Corpuscular Hgb Conc 34.7 g/dL (32.0-36.0); Mean Corpuscular Volume 91.5 fL (80.0-100.0); Mean Platelet Volume 9.9 fL (9.4-12.4); Platelet Count 132 K/uL (130-400); RDW Coefficient of Variation 13.5 % (11.5-14.5); RDW Standard Deviation 45.6 fL (36.4-46.3); White Blood Count 12.39 K/ul (4.8-10.8)
[2022-07-03 21:02] LABS: Alanine Aminotransferase 13 U/L (7-52); BUN Creatinine Ratio 19.7 (10-20); Bilirubin,Total 1.3 mg/dl (0.2-1.0); Blood Urea Nitrogen 26 mg/dl (6-23); Calcium 8.9 mg/dl (8.5-10.1); Carbon Dioxide 27 mmol/L (21-32); Chloride 102 mmol/L (98-107); Creatinine Clr Calc Pharmacy 55.1 ml/min; Est GFR (African American) 59.9 ml/min; Est GFR (Non-African American) 51.7 ml/min; Glucose 121 mg/dl (70-99(Fasting)); Total Protein 6.7 gm/dl (6.0-8.3); Troponin I High Sensitivity 90.2 pg/ml (0-20)
[2022-07-03 21:09] LABS: Influenza A virus by PCR Negative (Neg); Influenza B virus by PCR Negative (Neg); RSV by PCR Negative (Neg); SARS CoV2 RNA(COVID-19) Ceph NEGATIVE (Negative)
[2022-07-03 21:23] LABS: Toxic Vacuolation 2+
[2022-07-03 21:24] LABS: Basophils # (auto) 0.02 K/uL (0-0.2); Basophils % (auto) 0.2 %; Immature Granulocytes # (auto) 0.13 K/uL (0.01-0.20); Lymphocytes # (auto) 0.41 K/uL (1.2-3.4); Lymphocytes % (auto) 3.3 %; Monocytes # (auto) 0.57 K/uL (0.11-0.59); Monocytes % (auto) 4.6 %; Neutrophils # (auto) 11.26 K/uL (1.40-6.50); Neutrophils % (auto) 90.9 %
[2022-07-03 21:30] LABS: HCO3 VBG 28 mmol/L; Oxygen Saturation VBG 98.5 %; PCO2 VBG 37 mmHg (38-50); PO2 VBG 96 mmHg; pH VBG 7.48 (7.36-7.41)
[2022-07-03 21:54] LABS: Albumin Level 3.5 gm/dl (3.4-5.0); Bilirubin Direct 0.2 mg/dl (0-0.2); Magnesium 1.6 mg/dl (1.7-2.4); Potassium 3.3 mmol/L (3.5-5.1)
[2022-07-03 22:04] LABS: INR 1.2 (0.9-1.1); Partial Thromboplastin Ratio 1.1; Partial Thromboplastin Time 29.1 Seconds (21.0-31.0); Prothrombin Time 12.5 Seconds (9.0-12.0)
[2022-07-03] MEDS ORDERED: VANCOMYCIN CONSULT ACTIVE PRN (22:11)
[2022-07-03] MEDS ORDERED: VANCOMYCIN HCL 2,250 MG in SODIUM CHLORIDE 0.9% 500 ML IV ONE (22:11)
[2022-07-03] MEDS ORDERED: cefTRIAXone SODIUM 2,000 MG/70 ML BAG IV STA (22:11)
[2022-07-03] MEDS ORDERED: POTASSIUM CHLORIDE CRTAB 20 MEQ TABCR PO STA (22:23)
[2022-07-03] MEDS ORDERED: MAGNESIUM SULFATE / D5W 1 GM/100 ML BAG IV STA (22:31)
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
[2022-07-03] MEDS ORDERED: CEFEPIME 2,000 MG/20 ML VIAL IV STA (22:57)
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
[2022-07-03] MEDS ORDERED: DAPTOmycin 500 MG in SYRINGE 0 ML IV STA (23:30)
[2022-07-04] MEDS ORDERED: AZELASTINE HCL 0.1% NASAL 200 SPRAYS/27,400 MCG BTL PRN (01:26)
[2022-07-04] MEDS ORDERED: PROMETHAZINE HCL 12.5 MG in SODIUM CHLORIDE 0.9% 50 ML IV PRN (01:26)
[2022-07-04] MEDS ORDERED: ARTIFICIAL TEARS OP PRN (01:59)
[2022-07-04] MEDS ORDERED: VANCOMYCIN HCL 125 MG/2.5ML SOLN PO STA (02:53)
[2022-07-04] MEDS ORDERED: RASPBERRY SYRUP 5 ML UDP PO STA (02:53)
[2022-07-04] MEDS ORDERED: carvediloL 6.25 MG TAB PO SCH (03:00)
[2022-07-04] MEDS ORDERED: ACETAMINOPHEN 325 MG TAB PO STA (03:07)
[2022-07-04] MEDS ORDERED: ALBUMIN 25% 100 mL 25 GM/100 ML VIAL IV ONE (03:34)
[2022-07-04] MEDS: APIXABAN 5 MG TABLET PO SCH ×3 (03:38→20:26)
[2022-07-04] MEDS: EPLERENONE~ORDER AWAITING ACTION SCH ×2 (03:39→07:53)
[2022-07-04 06:41] LABS: Basophils # (auto) 0.03 K/uL (0-0.2); Basophils % (auto) 0.2 %; Eosinophils # (auto) 0.14 K/uL (0-0.50); Eosinophils % (auto) 1.1 %; Hematocrit (blood only) 34.6 % (42.0-52.0); Immature Granulocytes # (auto) 0.14 K/uL (0.01-0.20); Immature Granulocytes % (auto) 1.1 %; Lymphocytes # (auto) 0.62 K/uL (1.2-3.4); Lymphocytes % (auto) 4.9 %; Mean Corpuscular Hemoglobin 31.7 pg (25.0-34.0); Mean Corpuscular Hgb Conc 34.7 g/dL (32.0-36.0); Mean Corpuscular Volume 91.3 fL (80.0-100.0); Mean Platelet Volume 9.7 fL (9.4-12.4); Monocytes % (auto) 9.5 %; Neutrophils # (auto) 10.51 K/uL (1.40-6.50); Neutrophils % (auto) 83.2 %; Platelet Count 104 K/uL (130-400); RDW Coefficient of Variation 13.6 % (11.5-14.5); RDW Standard Deviation 45.7 fL (36.4-46.3); Red Blood Count 3.79 M/uL (4.70-6.10); White Blood Count 12.64 K/ul (4.8-10.8)
[2022-07-04 07:21] LABS: A calco-baum cmplx NotReported Not Detected (NotDetected); Bact fragilis Not Reported Not Detected (NotDetected); C auris Not Reported Not Detected (NotDetected); Calbicans Not Reported Not Detected (NotDetected); Candida glabrata Not Reported Not Detected (NotDetected); Candida krusei Not Reported Not Detected (NotDetected); Cneoformans/gatti Not Reported Not Detected (NotDetected); Cparapsilosis Not Reported Not Detected (NotDetected); Ctropicalis Not Reported Not Detected (NotDetected); E cloacae compx Not Reported Not Detected (NotDetected); Efaecalis Not Reported Not Detected (NotDetected); Efaecium Not Reported Not Detected (NotDetected); Enterobacterales Not Reported Not Detected (NotDetected); Escherichia coli Not Reported Not Detected (NotDetected); H influenzae Not Reported Not Detected (NotDetected); K aerogenes Not Reported Not Detected (NotDetected); Koxytoca Not Reported Not Detected (NotDetected); Kpneumoniae grp Not Reported Not Detected (NotDetected); Lmonocyt Not Reported Not Detected (NotDetected); N meningitidis Not Reported Not Detected (NotDetected); P aeruginosa Not Reported Not Detected (NotDetected); Proteus spp Not Reported Not Detected (NotDetected); Salmonella spp Not Reported Not Detected (NotDetected); Smarcescens Not Reported Not Detected (NotDetected); Staph lugdunensis Not Reported Not Detected (NotDetected); Staph spp. Not Reported DETECTED (NotDetected); Staphaureus Not Reported DETECTED (NotDetected); Staphepi Not Reported Not Detected (NotDetected); Staphylococcus spp. DETECTED (NotDetected); Stenmaltophilia Not Reported Not Detected (NotDetected); Strep agal(GrpB) Not Reported Not Detected (NotDetected); Strep pneum Not Reported Not Detected (NotDetected); Strep pyog (GrpA) Not Reported Not Detected (NotDetected); Strep spp Not Reported Not Detected (NotDetected); mecAC+MREJ Resistant Gene MRSA Not Detected (NotDetected)
[2022-07-04] MEDS: allopurinoL 100 MG TAB PO SCH ×2 (07:49→20:27)
[2022-07-04] MEDS: CETIRIZINE HCL 10 MG TABLET PO SCH (07:49)
[2022-07-04] MEDS: POTASSIUM CHLORIDE CRTAB 20 MEQ TABCR PO SCH ×2 (07:49→15:03)
[2022-07-04] MEDS: FINASTERIDE 5 MG TAB PO SCH (07:49)
[2022-07-04] MEDS: FLUTICASONE/VILANTEROL 100/25MCG 14 PUFFS/INHALER INH SCH (07:50)
[2022-07-04] MEDS: ALFUZOSIN HCL 10 MG TAB PO SCH (07:50)
[2022-07-04] MEDS: carvediloL 3.125 MG TAB PO SCH ×2 (07:51→20:29)
[2022-07-04] MEDS: FLUTICASONE PROPIONATE NA SPR 16 GM BTL SCH (07:51)
[2022-07-04 08:04] LABS: BUN Creatinine Ratio 22.5 (10-20); Calcium 8.6 mg/dl (8.5-10.1); Creatinine Clr Calc Pharmacy 47.3 ml/min; Est GFR (African American) 50.9 ml/min; Est GFR (Non-African American) 43.9 ml/min; Magnesium 1.9 mg/dl (1.7-2.4); Potassium 3.3 mmol/L (3.5-5.1)
[2022-07-04] MEDS ORDERED: SODIUM CHLORIDE 0.9% 1000ML 1,000 ML IV ONE (08:28)
[2022-07-04] MEDS ORDERED: SODIUM CHLORIDE 0.9% 1000ML 1,000 ML IV SCH (08:30)
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
[2022-07-04] MEDS ORDERED: carvediloL 3.125 MG TAB PO SCH (09:00)
[2022-07-04] MEDS: CEFEPIME 2,000 MG in SYRINGE 0 ML IV SCH ×2 (11:31→23:45)
--- NOTE | 2022-07-04 12:42 | Electrocardiogram Report ---
Test Reason : Blood Pressure : / mmHG Vent. Rate : 108 BPM Atrial Rate : 108 BPM P-R Int : 150 ms QRS Dur : 086 ms QT Int : 358 ms P-R-T Axes : 050 035 037 degrees QTc Int : 479 ms Sinus tachycardia with Premature atrial complexes Nonspecific T wave abnormality Lateral leads Otherwise normal ECG When compared with ECG of 18-MAY-2022 05:38, T wave inversion no longer evident in Inferior leads Nonspecific T wave abnormality now evident in Lateral leads Confirmed by Dariel Rodney ([id number]) on 07/04/2022 12:41:47 PM Referred By: REFERRED SELF Confirmed By:Dariel Rodney
[2022-07-04 14:02] LABS: Adenovirus F 40/41 PCR Not Detected (NotDetected); Astrovirus PCR Not Detected (NotDetected); Campylobacter PCR Not Detected (NotDetected); Cryptosporidium PCR Not Detected (NotDetected); Cyclospora cayetanensis PCR Not Detected (NotDetected); Entamoeba histolytica PCR Not Detected (NotDetected); Enteroaggregative E.coli(EAEC) Not Detected (NotDetected); Enteropathogenic E.coli (EPEC) Not Detected (NotDetected); Enterotoxigenic E.coli (ETEC) Not Detected (NotDetected); Giardia lamblia PCR Not Detected (NotDetected); Norovirus GI/GII PCR Not Detected (NotDetected); Plesiomonas shigelloides PCR Not Detected (NotDetected); Rotavirus A PCR Not Detected (NotDetected); Salmonella PCR Not Detected (NotDetected); Sapovirus PCR Not Detected (NotDetected); Shiga-like Toxin E.coli (STEC) Not Detected (NotDetected); Shigella/Enteroinvasive E.coli Not Detected (NotDetected); Vibrio cholerae PCR Not Detected (NotDetected); Vibrio species PCR Not Detected (NotDetected); Yersinia enterocolitica PCR Not Detected (NotDetected)
[2022-07-04] MEDS: ACETAMINOPHEN 325 MG TAB PO PRN ×3 (15:03→23:52)
--- NOTE | 2022-07-04 16:30 | Magnetic Resonance Report ---
THORACIC SPINE MRI HISTORY: Back Pain, Persistent Bacteremia TECHNIQUE: Multiplanar multisequence MRI of the thoracic spine was performed without the use of contr ast. COMPARISON: Chest CTA 05/16/2022. FINDINGS: No acute fracture or subluxation within the thoracic spine. Mild focal super endplate indentation at T12 consistent with an old compression deformity. Moderate to severe disc space narrowing throughout the thoracic spine consistent with degenerative changes. Mild levoscoliosis of the thoracic spine. No significant central canal or neural foraminal narrowing. Small broad-based posterior disc bulges wit hin the majority thoracic spine. The thoracic spinal cord is normal in course, caliber, and signal in tensity. No paraspinal or epidural fluid collections identified. A 1 cm vertebral body hemangioma at T5 is noted. Mild endplate degenerative changes are seen within the thoracic spine. No erosive change s to suggest a discitis/osteomyelitis. IMPRESSION: 1. No acute fracture or subluxation within the thoracic spine. 2. No evidence for a discitis/osteomyelitis. 3. Moderate to severe degenerative disc disease without significant central canal narrowing. 4. There is an old mild superior endplate compression deformity at T12. 5. Mild levoscoliosis. ACT 112: Negative or not required by law. Electronically signed by: Dion Bear M.D. 07/04/2022 4:29 PM
--- NOTE | 2022-07-04 16:31 | Hospitalist Progress Note ---
Date of Service July 04, 2022 Assessment & Plan (1) Sepsis: Plan: Sepsis Gram-positive bacteremia 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, failed IV antibiotic course Valvular heart disease Rule Out C diff --CXR:Cardiomegaly with evidence of congestive failure. --ECHO: No evidence of mass or vegetation. Left ventricle is hyperdynamic. EF greater than 70% with moderate concentric LVH. Cardiac valve is severely calcified. Moderate valvular aortic stenosis. Severe mitral annular calcification. Calcified mitral apparatus causing mitral stenosis. Moderate mitral stenosis. Mild tricuspid regurgitation. --Had MANJINDER on 05/23/22 which showed no vegetations --Completed IV ceftriaxone course for 6 weeks--Last dose on 06/30/22 --Blood Cultures:4/ gram-positive cocci in clusters --Empirically started on cefepime, daptomycin --Appreciate cardiology input --gentle IV fluids --Home diuretics on hold --Patient to be transferred to [facility] for high risk MANJINDER, CT surgery evaluation --Plan to repeat cultures tomorrow --Patient is accepted by Dr.Mark Dunabr (Triage Officer) for further management at [facility] Back Pain H/O spinal stenosis --Thoracic Spine MRI:No acute fracture or subluxation within the thoracic spine. No evidence for a discitis/osteomyelitis. Moderate to severe degenerative disc disease without significant central canal narrowing. There is an old mild superior endplate compression deformity at T12. Mild levoscoliosis. --Lumbar Spine MRI:pending Thrombocytopenia Likely secondary to sepsis Monitor platelets No obvious bleeding issues Hypokalemia Replete electrolytes as needed Acute kidney injury Creatinine 1.5 Avoid nephrotoxic agents as able Monitor renal function Paroxysmal atrial fibrillation Currently in sinus tachycardia Carvedilol on hold due to hypotension On Eliquis for anticoagulation Diarrhea Rule out C. difficile Stool studies pending Hyperlipidemia on statin Asthma stable No signs of exacerbation H/O PE/DVT on Eliquis DVT Px: On Eliquis Code Status Full code Disposition [facility] Admission and Anticipated Discharge Date Admission Date: July 03, 2022 Subjective Patient is seen and examined at bedside States having chills, generalized weakness Discussed with patient and family at bedside Diarrhea improved Febrile and tachycardic today Also discussed with cardiology today Review of Systems Review of Systems: All systems reviewed & are unremarkable except as noted in Subjective Physical Exam Physical Exam: Physical Exam: Vitals signs as noted above General Appearance:Obese, ill-appearing, no distress Head: normocephalic, Atraumatic Eyes: normal inspection, EOMI Neck: supple, Trachea midline Respiratory/Chest: Decreased breath sounds, CTA, No accessory muscle use Cardiovascular: S1, S2, + murmur Abdomen/GI:Soft, Non tender, Bowel sounds present Extremities/Musculoskeletal:normal inspection, 1+ LE edema Neurologic/Psych:AAOX3, grossly no focal neurological deficits Skin: normal color, warm Results & Data Results & Data ([facility]) Vital Signs (Past 12 Hours) Vital Signs Temp Pulse Pulse Pulse Resp BP Pulse Ox 07/04/22 15:41 109 H 07/04/22 14:38 38.3 C H 104 H 22 104/68 94 07/04/22 10:52 36.8 C 100 H 22 91/65 L 96 07/04/22 09:02 07/04/22 07:29 36.8 C 105 H 22 89/60 L 93 07/04/22 07:23 87 07/04/22 05:51 87 93/60 L 07/04/22 04:57 36.8 C 100 H 92/58 L 94 O2 Del Method O2 Flow Rate 07/04/22 15:41 07/04/22 14:38 Nasal Cannula 2 07/04/22 10:52 Room Air 07/04/22 09:02 Nasal Cannula 2 07/04/22 07:29 Room Air 07/04/22 07:23 07/04/22 05:51 07/04/22 04:57 Room Air Laboratory Results Short CBC 07/03/22 07/04/22 Range/Units 20:02 06:26 WBC 12.39 H 12.64 H (4.8-10.8) K/ul Hgb 13.0 L 12.0 L (14.0-18.0) g/dl Hct 37.5 L 34.6 L (42.0-52.0) % Plt Count 132 104 L (130-400) K/uL BMP 07/03/22 07/03/22 07/04/22 20:02 21:07 06:26 Sodium TNP 135 L 135 L Potassium TNP 3.3 L 3.3 L Chloride 102 100 Carbon Dioxide 27 26 BUN 26 H 34 H Creatinine 1.32 1.51 H Glucose 121 H 121 H Calcium 8.9 8.6 Liver Function 07/03/22 07/03/22 Range/Units 20:02 21:07 Total Bilirubin 1.3 H (0.2-1.0) mg/dl Direct Bilirubin TNP 0.2 AST TNP 22 ALT 13 (7-52) U/L Alkaline Phosphatase TNP 43 Albumin TNP 3.5
--- NOTE | 2022-07-04 17:08 | Discharge Summary ---
Date of Service July 04, 2022 Admission HPI Per Admitting Provider History obtained from patient and records. 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 Last confinement April 2022 for sepsis secondary to MSSA bacteremia secondary to presumptive infective endocarditis. No definitive vegetation on MANJINDER due to underlying mitral/aortic valve calcification. Vegetation cannot be excluded as per report. [facility] [place] Ceftriax[place] course for total of 6 weeks. Follow-up MANJINDER contemplated by cardiology last week of June or first week of July 2022 as per outpatient records. Patient completed antibiotic regimen a few days ago. 2 days history of watery diarrhea symptoms without abdominal pain. Fever, chills, fatigue noted today. No cough symptoms. No chest pain, no shortness of breath, no headache. Ceftriaxone administered at the ER. 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 Admission Exam Per Admitting Provider GENERAL: Slightly uncomfortable, obese, pleasant, no respiratory distress SKIN: Normal color, warm HEENT: Alopecia, pink palpebral conjunctivae, no ptosis, dry buccal mucosa NECK : Supple, short neck, no tenderness CHEST : Decreased breath sounds, no tenderness HEART : Tachycardic, systolic murmur heard over left sternal border ABDOMEN: Some distention, nontender EXTREMITIES : Minimal LE swelling, no LE tenderness, no other conspicuous deformities noted NEUROLOGIC : Coherent, no facial asymmetry, no other gross focality Principal Diagnosis Sepsis Gram-positive bacteremia 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, failed IV antibiotic course Valvular heart disease Diarrhea Hypokalemia Discharge Data Allergies Allergy/AdvReac Type Severity Reaction Status Date / Time mold Allergy Mild Congested Verified 07/03/22 22:30 pollen extracts Allergy Mild Congested Verified 07/03/22 22:30 doxycycline AdvReac Severe LIVER/KIDNEY Verified 07/03/22 22:32 PROBLEMS Consultations 07/03/22 22:12 ED Decision to Admit Stat 07/04/22 08:29 Consult Cardiology Routine 07/04/22 14:40 Consult Infectious Diseases Routine Procedures Performed Laboratory Results WBC 12.64 K/ul (4.8-10.8) H 07/04/22 06:26 RBC 3.79 M/uL (4.70-6.10) L 07/04/22 06:26 Hgb 12.0 g/dl (14.0-18.0) L 07/04/22 06:26 Hct 34.6 % (42.0-52.0) L 07/04/22 06:26 MCV 91.3 fL (80.0-100.0) 07/04/22 06:26 MCH 31.7 pg (25.0-34.0) 07/04/22 06:26 MCHC 34.7 g/dL (32.0-36.0) 07/04/22 06:26 RDW Std Deviation 45.7 fL (36.4-46.3) 07/04/22 06:26 RDW Coeff of Hanh 13.6 % (11.5-14.5) 07/04/22 06:26 Plt Count 104 K/uL (130-400) L 07/04/22 06:26 MPV 9.7 fL (9.4-12.4) 07/04/22 06:26 Immature Gran % (Auto) 1.1 % 07/04/22 06:26 Neut % (Auto) 83.2 % 07/04/22 06:26 Lymph % (Auto) 4.9 % 07/04/22 06:26 [place] % (Auto) 9.5 % 07/04/22 06:26 Eos % (Auto) 1.1 % 07/04/22 06:26 Baso % (Auto) 0.2 % 07/04/22 06:26 Neut # (Auto) 10.51 K/uL (1.40-6.50) H 07/04/22 06:26 Lymph # (Auto) 0.62 K/uL (1.2-3.4) L 07/04/22 06:26 [place] # (Auto) 1.20 K/uL (0.11-0.59) H 07/04/22 06:26 Eos # (Auto) 0.14 K/uL (0-0.50) 07/04/22 06:26 Baso # (Auto) 0.03 K/uL (0-0.2) 07/04/22 06:26 Immature Gran # (Auto) 0.14 K/uL (0.01-0.20) 07/04/22 06:26 Toxic Vacuolation 2+ 07/03/22 20:02 PT 12.5 Seconds (9.0-12.0) H 07/03/22 21:07 INR 1.2 (0.9-1.1) H 07/03/22 21:07 APTT 29.1 Seconds (21.0-31.0) 07/03/22 21:07 PTT Ratio 1.1 07/03/22 21:07 VBG pH 7.48 (7.36-7.41) H 07/03/22 21:07 VBG pCO2 37 mmHg (38-50) L 07/03/22 21:07 VBG pO2 96 mmHg 07/03/22 21:07 VBG HCO3 28 mmol/L 07/03/22 21:07 VBG O2 Saturation 98.5 % 07/03/22 21:07 VBG Base Excess 4.0 mEq/L 07/03/22 21:07 Sodium 135 mmol/L (136-145) L 07/04/22 06:26 Potassium 3.3 mmol/L (3.5-5.1) L 07/04/22 06:26 Chloride 100 mmol/L (98-107) 07/04/22 06:26 Carbon Dioxide 26 mmol/L (21-32) 07/04/22 06:26 Anion Gap 9 (3-11) 07/04/22 06:26 BUN 34 mg/dl (6-23) H 07/04/22 06:26 Creatinine 1.51 mg/dl (0.6-1.4) H 07/04/22 06:26 Est Cr Clr Drug Dosing 47.3 ml/min 07/04/22 06:26 Est GFR ( Amer) 50.9 ml/min 07/04/22 06:26 Est GFR (Non-Af Amer) 43.9 ml/min 07/04/22 06:26 BUN/Creatinine Ratio 22.5 (10-20) H 07/04/22 06:26 Glucose 121 mg/dl (70-99(Fasting)) H 07/04/22 06:26 Lactate 1.4 mmol/L (0.4-2.0) 07/03/22 20:02 Calcium 8.6 mg/dl (8.5-10.1) 07/04/22 06:26 Magnesium 1.9 mg/dl (1.7-2.4) 07/04/22 06:26 Total Bilirubin 1.3 mg/dl (0.2-1.0) H 07/03/22 20:02 Direct Bilirubin 0.2 mg/dl (0-0.2) 07/03/22 21:07 AST 22 U/L (13-39) 07/03/22 21:07 ALT 13 U/L (7-52) 07/03/22 20:02 Alkaline Phosphatase 43 U/L (34-104) 07/03/22 21:07 Troponin I High Sens 183.6 pg/ml (0-20) H* D 07/04/22 06:26 B-Natriuretic Peptide 271 pg/ml (0-100) H 07/03/22 20:08 Total Protein 6.7 gm/dl (6.0-8.3) 07/03/22 20:02 Albumin 3.5 gm/dl (3.4-5.0) 07/03/22 21:07 Globulin TNP 07/03/22 20:02 Albumin/Globulin Ratio TNP 07/03/22 20:02 Procalcitonin 19.19 ng/ml (0-0.5) H 07/03/22 21:07 Stl C. cayetanensis PCR Not Detected (NotDetected) 07/04/22 12:25 Stool Rotavirus A PCR Not Detected (NotDetected) 07/04/22 12:25 Stl Adenov F 40/41 PCR Not Detected (NotDetected) 07/04/22 12:25 Stool Astrovirus (PCR) Not Detected (NotDetected) 07/04/22 12:25 Stool Campylobacter PCR Not Detected (NotDetected) 07/04/22 12:25 Stl C. diff Tox B Gene Negative Cdiff Gene (Neg) 07/04/22 12:25 Stool Cryptosporidium PCR Not Detected (NotDetected) 07/04/22 12:25 Stl E.coli Shiga Tox PCR Not Detected (NotDetected) 07/04/22 12:25 Stl Enterotoxigenic E PCR Not Detected (NotDetected) 07/04/22 12:25 Stool EPEC (PCR) Not Detected (NotDetected) 07/04/22 12:25 Stool EAEC (PCR) Not Detected (NotDetected) 07/04/22 12:25 Stl E. histolytica PCR Not Detected (NotDetected) 07/04/22 12:25 Stool Giardia Lamblia PCR Not Detected (NotDetected) 07/04/22 12:25 Stool Salmonella PCR Not Detected (NotDetected) 07/04/22 12:25 Stool Sapovirus (PCR) Not Detected (NotDetected) 07/04/22 12:25 Stl P. shigelloides PCR Not Detected (NotDetected) 07/04/22 12:25 Stl Shigella/EIEC PCR Not Detected (NotDetected) 07/04/22 12:25 St Y.enterocolitica PCR Not Detected (NotDetected) 07/04/22 12:25 Stool Vibrio (PCR) Not Detected (NotDetected) 07/04/22 12:25 Stl Vibrio cholerae PCR Not Detected (NotDetected) 07/04/22 12:25 Stl Norovirus GI/GII PCR Not Detected (NotDetected) 07/04/22 12:25 SARS-CoV-2 (PCR) NEGATIVE (Negative) 07/03/22 Unknown Influenza Type A (PCR) Negative (Neg) 07/03/22 Unknown Influenza Type B (PCR) Negative (Neg) 07/03/22 Unknown RSV (RT-PCR) Negative (Neg) 07/03/22 Unknown Staphylococcus sp PCR DETECTED (NotDetected) A 07/03/22 20:02 Staph aureus (PCR) DETECTED (NotDetected) A 07/03/22 20:02 mecA/C & MREJ Resist Gene MRSA Not Detected (NotDetected) 07/03/22 20:02 Bld Cult ID Panel PCR See PCR Comment (NotDetected) 07/03/22 20:02 Impressions Chest X-Ray 07/03/22 19:35 SINGLE VIEW CHEST CLINICAL HISTORY: Sepsis. FINDINGS: An AP, portable, upright chest radiograph is compared to study dated 05/16/2022. The heart is enlarged measuring atherosclerotic calcification of the thoracic aorta. There is pulmonary vascular congestion. Scarring/atelectasis is noted at both lung bases. No large pleural effusion or pneumothorax is seen. The skeletal structures are osteopenic. There is chronic deformity of the right anterior ribs. IMPRESSION: Cardiomegaly with evidence of congestive failure. ACT 112: Negative or not required by law. Electronically signed by: Jayson Huffman M.D. 07/03/2022 7:55 PM Thoracic Spine MRI 07/04/22 14:42 THORACIC SPINE MRI HISTORY: Back Pain, Persistent Bacteremia TECHNIQUE: Multiplanar multisequence MRI of the thoracic spine was performed without the use of contrast. COMPARISON: Chest CTA 05/16/2022. FINDINGS: No acute fracture or subluxation within the thoracic spine. Mild focal super endplate indentation at T12 consistent with an old compression deformity. Moderate to severe disc space narrowing throughout the thoracic spine consistent with degenerative changes. Mild levoscoliosis of the thoracic spine. No significant central canal or neural foraminal narrowing. Small broad-based posterior disc bulges within the majority thoracic spine. The thoracic spinal cord is normal in course, caliber, and signal intensity. No paraspinal or epidural fluid collections identified. A 1 cm vertebral body hemangioma at T5 is noted. Mild endplate degenerative changes are seen within the thoracic spine. No erosive changes to suggest a discitis/osteomyelitis. IMPRESSION: 1. No acute fracture or subluxation within the thoracic spine. 2. No evidence for a discitis/osteomyelitis. 3. Moderate to severe degenerative disc disease without significant central canal narrowing. 4. There is an old mild superior endplate compression deformity at T12. 5. Mild levoscoliosis. ACT 112: Negative or not required by law. Electronically signed by: Dion Bear M.D. 07/04/2022 4:29 PM Ordered Studies 07/04/22 14:42 MRI Lumbar Spine [MR lumbar spine wo con] Routine MRI Spine [MR thoracic spine wo con] Routine Hospital Course (1) Sepsis: Sepsis Gram-positive bacteremia 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, failed IV antibiotic course Valvular heart disease Rule Out C diff --CXR:Cardiomegaly with evidence of congestive failure. --ECHO: No evidence of mass or vegetation. Left ventricle is hyperdynamic. EF greater than 70% with moderate concentric LVH. Cardiac valve is severely calcified. Moderate valvular aortic stenosis. Severe mitral annular calcification. Calcified mitral apparatus causing mitral stenosis. Moderate mitral stenosis. Mild tricuspid regurgitation. --Had MANJINDER on 05/23/22 which showed no vegetations --Completed IV ceftriaxone course for 6 weeks--Last dose on 06/30/22 --Blood Cultures:4/4 gram-positive cocci in clusters --Empirically started on cefepime, daptomycin --Appreciate cardiology input --gentle IV fluids --Home diuretics on hold --Patient to be transferred to [facility] for high risk MANJINDER, CT surgery evaluation --Plan to repeat cultures tomorrow --Patient is accepted by Dr.Mark Dunbar (Triage Officer) for further management at [facility] Back Pain H/O spinal stenosis --Thoracic Spine MRI:No acute fracture or subluxation within the thoracic spine. No evidence for a discitis/osteomyelitis. Moderate to severe degenerative disc disease without significant central canal narrowing. There is an old mild superior endplate compression deformity at T12. Mild levoscoliosis. --Lumbar Spine MRI:pending Thrombocytopenia Likely secondary to sepsis Monitor platelets No obvious bleeding issues Hypokalemia Replete electrolytes as needed Acute kidney injury Creatinine 1.5 Avoid nephrotoxic agents as able Monitor renal function Paroxysmal atrial fibrillation Currently in sinus tachycardia Carvedilol on hold due to hypotension On Eliquis for anticoagulation Diarrhea Rule out C. difficile Stool studies pending Hyperlipidemia on statin Asthma stable No signs of exacerbation H/O PE/DVT on Eliquis DVT Px: On Eliquis Code Status Full code Disposition [facility] Total Time Total Time Spent Total Time Spent (In Minutes): 75 minutes Discharge Plan Discharge Items Patient Disposition: Transfer Acute Care Hospital Reason For Visit: SEPSIS Discharge Diagnosis: Sepsis Gram-positive bacteremia 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, failed IV antibiotic course Valvular heart disease Diarrhea Hypokalemia Activity: Per Instructions section Exercise/Sports: Wait until after follow-up appointment Non-emergency contact: Primary Care Provider and Orthophoto Tech/[place] Call non-emergency contact if: you have any medication questions, your symptoms worsen, your pain is concerning for you and you have a fever Follow-up/Referrals: Alex Steve DO [Primary Care Provider] - Diet: Heart Healthy Add Attending Provider Instructions: Follow-up with Dr.Mark Dunbar and cardiology team at [facility] for further management. Addtl Lab Support Service Tech Provider Instructions: Date of Service: July 04, 2022 Current Inpatient Medications Acetaminophen (Acetaminophen 325 Mg Tab) 650 mg PO Q4H PRN PRN Reason: Pain or Fever Stop: 08/03/22 01:25 Last Admin: 07/04/22 15:03 Dose: 650 mg Alfuzosin HCl (Alfuzosin Hcl 10 Mg Tab) 10 mg PO QAM SERA Stop: 08/03/22 08:59 Last Admin: 07/04/22 07:50 Dose: 10 mg Allopurinol (Allopurinol 100 Mg Tab) 200 mg PO BID SERA Stop: 08/03/22 08:59 Last Admin: 07/04/22 07:49 Dose: 200 mg Apixaban (Apixaban 5 Mg Tablet) 5 mg PO BID SERA Stop: 08/03/22 01:25 Last Admin: 07/04/22 07:48 Dose: 5 mg Artificial Tears (Artificial Tears) 1 drops OP Q4H PRN PRN Reason: Dry Eyes Stop: 08/03/22 01:58 Azelastine HCl (Azelastine Hcl 0.1% Nasal 200 Sprays/27,400 Mcg Btl) 1 sprays NA BID PRN PRN Reason: Congestion Stop: 08/03/22 01:25 Carvedilol (Carvedilol 3.125 Mg Tab) 3.125 mg PO BID SERA Stop: 08/03/22 08:59 Last Admin: 07/04/22 07:51 Dose: Not Given Cetirizine HCl (Cetirizine Hcl 10 Mg Tablet) 10 mg PO QAM SERA Stop: 08/03/22 08:59 Last Admin: 07/04/22 07:49 Dose: 10 mg Finasteride (Finasteride 5 Mg Tab) 5 mg PO DAILY SERA Stop: 08/03/22 08:59 Last Admin: 07/04/22 07:49 Dose: 5 mg Fluticasone Propionate (Fluticasone Propionate Na Spr 16 Gm Btl) 2 sprays NA DAILY SEAR Stop: 08/03/22 08:59 Last Admin: 07/04/22 07:51 Dose: 2 sprays Fluticasone/Vilanterol (Fluticasone/Vilanterol 100/25mcg 14 Puffs/Inhaler) 1 puffs INH DAILY SERA Stop: 08/03/22 08:59 Last Admin: 07/04/22 07:50 Dose: 1 puffs Promethazine HCl 12.5 mg/ (Sodium Chloride) 50.5 mls @ 202 mls/hr IV Q6H PRN PRN Reason: Nausea And Vomiting Stop: 08/03/22 01:25 Daptomycin 500 mg/ Syringe 10 mls @ 5 mls/min IV Q24H [facility]; Protocol Stop: 07/07/22 01:59 Cefepime HCl 2,000 mg/ Syringe 20 mls @ 5 mls/min IV Q12H [facility]; Protocol Stop: 07/06/22 10:59 Last Admin: 07/04/22 11:31 Dose: 5 mls/min Sodium Chloride (Nss 1000ml) 1,000 mls @ 60 mls/hr IV .[id number] ONE Stop: 07/05/22 01:07 Last Admin: 07/04/22 09:33 Dose: 60 mls/hr Miscellaneous (Eplerenone~Order Awaiting Action) 1 each N/A QS [facility] Stop: 08/03/22 01:59 Last Admin: 07/04/22 07:53 Dose: Not Given Montelukast Sodium (Montelukast Sodium 10 Mg Tablet) 10 mg PO HS [facility] Stop: 08/03/22 20:59 Potassium Chloride (Potassium Chloride Crtab 20 Meq Tabcr) 40 meq PO QAM [facility] Stop: 08/03/22 08:59 Last Admin: 07/04/22 07:49 Dose: 40 meq Potassium Chloride (Potassium Chloride Crtab 20 Meq Tabcr) 20 meq PO 1700 [facility] Stop: 08/03/22 16:59 Last Admin: 07/04/22 15:03 Dose: 20 meq Pending Studies at Discharge: Yes Studies:: Blood Cultures Stand-Alone Forms: My [facility] Skilled Items Patient informed of condition?: Yes DNR: No Discharge Level of Care: Other Communicable Disease: No Discharge Prognosis: Stable Lines: Peripheral IV Urinary Catheter: No Medications and DC Order Prescriptions: Continued carvedilol 12.5 mg Tablet 18.75 mg PO Q12H Rx Instructions: TAKES 1 & 1/2 TABS. cetirizine 10 mg Tablet 10 mg PO QAM indapamide 2.5 mg Tablet 2.5 mg PO QAM allopurinol 100 mg Tablet 200 mg PO BID albuterol sulfate 90 mcg/actuation Hfa Aerosol Inhaler 1 inh INHALATION QID PRN (Reason: sob) apixaban 5 mg Tablet 5 mg PO BID budesonide-formoterol [Symbicort] 160-4.5 mcg/actuation Hfa Aerosol Inhaler 1 inh INHALATION BID alfuzosin [Uroxatral] 10 mg tablet extended release 24 hr 10 mg PO QAM Rx Instructions: administer after the same meal each day amoxicillin 500 mg Capsule 2,000 mg PO DIRECTED PRN (Reason: PRIOR TO DENTAL APPT.) albuterol sulfate 2.5 mg /3 mL (0.083 %) Solution For Nebulization 2.5 mg INHALATION Q6H PRN (Reason: SHORTNESS OF BREATH/COUGH) montelukast [Singulair] 10 mg Tablet 10 mg PO HS azelastine 137 mcg (0.1 %) Aerosol,[place] 1 spray INTRANASAL BID PRN (Reason: Congestion) Rx Instructions: administer into each nostril eplerenone 25 mg tablet 25 mg PO QAM Rx Instructions: LAST FILLED 08/2021. Systane (PF) 0.4-0.3 % [place] 1 drp OPHTHALMIC (EYE) DIRECTED PRN (Reason: Dry Eyes) Zyncof 20-400 mg/5 mL Liquid 5 ml PO DIRECTED PRN (Reason: Congestion) potassium chloride 20 mEq tablet,ER particles/crystals See Rx Instructions .ROUTE .COMPLEX Rx Instructions: 20 mEq orally; TAKES 40 MEQ QAM, THEN 20 MEQ QPM. finasteride 5 mg tablet 5 mg PO DAILY mometasone 50 mcg/actuation [place],Non-Aerosol 2 spray INTRANASAL DAILY Rx Instructions: administer into each nostril furosemide 20 mg Tablet 20 mg PO QAM Qty: 30 0RF Discharge Orders: Discharge Order (Routine); Ordered 07/04/22 Ordered By: Sanjay Gutiérrez Admission Data Admit Date/Time: 07/03/22 23:32 Attending Provider: Sanjay Gutiérrez Admit Provider: Won Allan Primary Care Provider: Alex Steve Other Providers: Won Allan ; Gael Goncalves ; Joaquin Centeno ; Michael Cantu ; Derick Gonzalez I. ; Jose Alfredo Kline II ; Terra Sherwood ; Luis Fernando Nieves ; Vinicio Luong ; Jesús Nguyen
[2022-07-04] MEDS ORDERED: SODIUM CHLORIDE 0.9% 1000ML 250 ML IV ONE ×2 (17:28→17:53)
[2022-07-04 17:51] LABS: Appearance Urine Clear (Clear); Bacteria Urine Automated Negative (Negative); Bilirubin Urine Negative (Negative); Blood Urine 2+ (Negative); Color Urine Dark Yellow; Glucose Urine UA Negative (Negative); Ketones Urine Trace (Negative); Leukocyte Esterase Urine Negative (Negative); Nitrite Urine Negative (Negative); Protein Urine 2+ (Negative); Specific Gravity Urine 1.032 (1.000-1.030); Urobilinogen Urine Negative (Negative)
[2022-07-04] MEDS ORDERED: AMIODARONE / D5W 150 MG/100 ML BAG IV STA (18:29)
[2022-07-04] MEDS ORDERED: AMIODARONE / D5W 360 MG/200 ML BAG IV ONE (18:29)
[2022-07-04] MEDS ORDERED: 0.2 MICRON FILTER SET 1 EACH IV STA (18:29)
[2022-07-04] MEDS ORDERED: AMIODARONE IV BOLUS & DRIP IV STA (18:29)
[2022-07-04] MEDS ORDERED: STAT IV Infusion **Titration per Protocol STA (18:29)
[2022-07-04 18:45] LABS: Calcium 8.1 mg/dl (8.5-10.1); Potassium 4.1 mmol/L (3.5-5.1)
[2022-07-04 19:05] LABS: BUN Creatinine Ratio 30.2 (10-20); Creatinine Clr Calc Pharmacy 55.3 ml/min; Est GFR (African American) 61.6 ml/min; Est GFR (Non-African American) 53.1 ml/min
--- NOTE | 2022-07-04 19:40 | Magnetic Resonance Report ---
LUMBAR SPINE MRI HISTORY: Back Pain, Persistent Bacteremia TECHNIQUE: Multiplanar multisequence MRI of the lumbar spine was performed without the use of contras t. COMPARISON: None. FINDINGS: For the purpose of the report the L5-S1 disc space will be located on axial image 38 of 44. . Near nondiagnostic evaluation of the axial sequences due to the significant motion artifact. There is also motion artifact within the sagittal sequences resulting in suboptimal evaluation. There is mild levoscoliosis of the lumbar spine. No fracture or subluxation. Mild disc space narrowing at L1-L2. M oderate disc space narrowing at L3-L4, L4-5, and L5-S1. There are mild facet degenerative changes wit hin the lumbar spine. Subcutaneous edema seen within the lumbar region. There is an old mild superior endplate compression deformity at T12. The conus terminates at the L1 level. No epidural or paraspin al fluid collections identified. No erosive changes or abnormal disc signal intensity to suggest a di scitis/osteomyelitis. L1-L2: Small broad-based posterior disc bulge asymmetric to the left resulting in mild left-sided christian ral foraminal narrowing. No significant central canal or right-sided neural foraminal narrowing. L2-L3: Small broad-based posterior disc bulge asymmetric to the left resulting in mild left-sided christian ral foraminal narrowing. No significant central canal or right-sided neural foraminal narrowing. L3-L4: Small broad-based posterior disc bulge without significant central canal or left-sided neural foraminal narrowing. There is mild right-sided neural foraminal narrowing. L4-L5: Small broad-based posterior disc bulge with a small focal central disc protrusion measuring 3 mm without significant central canal narrowing. There is mild right-sided neural foraminal narrowing. No significant left-sided neural foraminal narrowing. L5-S1: Small broad-based posterior disc bulge without significant central canal narrowing. There is m ild left-sided neural foraminal narrowing. IMPRESSION: 1. Suboptimal evaluation due to motion artifact. However, no fracture or subluxation within the lumba r spine. 2. Mild degenerative changes as described above without significant central canal narrowing. 3. No evidence for discitis/osteomyelitis. ACT 112: Negative or not required by law. Electronically signed by: Dion Bear M.D. 07/04/2022 7:38 PM
[2022-07-04] MEDS: MONTELUKAST SODIUM 10 MG TABLET PO SCH (20:28)
[2022-07-05] MEDS: AMIODARONE / D5W 360 MG/200 ML BAG IV SCH ×2 (01:02→12:11)
[2022-07-05] MEDS ORDERED: XOPENEX/ATROVENT 1.25mg/0.5MG NEB COMBO NEB STA (01:17)
[2022-07-05] MEDS ORDERED: MAGNESIUM SULFATE / D5W 1 GM/100 ML BAG IV ONE (01:17)
[2022-07-05] MEDS ORDERED: IPRATROPIUM BROMIDE NEB SOLN 0.02% 2.5 ML VIAL INH STA (01:31)
[2022-07-05] MEDS ORDERED: LEVALBUTEROL 1.25MG/0.5ML NEB INH STA (01:31)
[2022-07-05] MEDS ORDERED: FUROSEMIDE INJ 20 MG/2 ML VIAL IV ONE (01:56)
[2022-07-05] MEDS ORDERED: ALBUMIN 25% 100 mL 25 GM/100 ML VIAL IV ONE (01:56)
[2022-07-05] MEDS ORDERED: DAPTOmycin 500 MG in SYRINGE 0 ML IV SCH (02:00)
[2022-07-05 02:05] LABS: Base Excess ABG 0.9 mEq/L (-9-1.8); HCO3 ABG 24 mmol/L (19-24); Oxygen Saturation ABG 99.7 % (90-95); PCO2 ABG 33 mmHg (35-46); PO2 ABG 155 mmHg (80-95); pH ABG 7.47 (7.35-7.45)
[2022-07-05 02:11] LABS: Allen Test Pos (Pos)
--- NOTE | 2022-07-05 07:54 | XRay Report ---
XR chest 1V portable HISTORY: 76 years-old Male low o2 acute shortness of breath COMPARISON: Chest radiograph 07/03/2022 TECHNIQUE: AP view of the chest FINDINGS: Cardiac silhouette is enlarged. Pulmonary vascular congestion with improved pulmonary edema. No pneum othorax. Trace pleural effusions. Improved aeration of the lung bases. Degenerative changes of the sh oulders and spine. IMPRESSION: 1. Cardiomegaly with pulmonary vascular congestion and improving pulmonary edema. 2. Trace pleural effusions with improved aeration of the lung bases. ACT 112: Negative or not required by law. The above report was generated using voice recognition software. It may contain grammatical, syntax o r spelling errors. Electronically signed by: Edilberto Cruz M.D. 07/05/2022 7:53 AM
[2022-07-05] MEDS: allopurinoL 100 MG TAB PO SCH ×2 (08:23→20:03)
[2022-07-05] MEDS: ALFUZOSIN HCL 10 MG TAB PO SCH (08:23)
[2022-07-05] MEDS: FINASTERIDE 5 MG TAB PO SCH (08:23)
[2022-07-05] MEDS: POTASSIUM CHLORIDE CRTAB 20 MEQ TABCR PO SCH ×2 (08:23→17:18)
[2022-07-05] MEDS: APIXABAN 5 MG TABLET PO SCH ×2 (08:23→20:03)
[2022-07-05] MEDS: CETIRIZINE HCL 10 MG TABLET PO SCH (08:23)
[2022-07-05] MEDS: FLUTICASONE/VILANTEROL 100/25MCG 14 PUFFS/INHALER INH SCH (08:24)
[2022-07-05] MEDS: carvediloL 3.125 MG TAB PO SCH (08:24)
[2022-07-05 08:25] LABS: BUN Creatinine Ratio 33.6 (10-20); Calcium 8.8 mg/dl (8.5-10.1); Creatinine Clr Calc Pharmacy 63.4 ml/min; Est GFR (African American) 72.3 ml/min; Est GFR (Non-African American) 62.4 ml/min; Magnesium 2.3 mg/dl (1.7-2.4); Potassium 3.6 mmol/L (3.5-5.1)
[2022-07-05 09:02] LABS: Hematocrit (blood only) 37.1 % (42.0-52.0); Hemoglobin 12.4 g/dl (14.0-18.0); Mean Corpuscular Hemoglobin 30.8 pg (25.0-34.0); Mean Corpuscular Hgb Conc 33.4 g/dL (32.0-36.0); Mean Corpuscular Volume 92.3 fL (80.0-100.0); Mean Platelet Volume 10.2 fL (9.4-12.4); Platelet Count 86 K/uL (130-400); RDW Coefficient of Variation 13.6 % (11.5-14.5); RDW Standard Deviation 46.5 fL (36.4-46.3); Red Blood Count 4.02 M/uL (4.70-6.10); White Blood Count 9.09 K/ul (4.8-10.8)
[2022-07-05] MEDS: FLUTICASONE PROPIONATE NA SPR 16 GM BTL SCH (09:25)
[2022-07-05] MEDS: ceFAZolin 2000MG 2,000 MG/15 ML SYR IV SCH ×2 (10:27→17:18)
--- NOTE | 2022-07-05 10:48 | Cardiology Progress Note ---
Date of Service July 05, 2022 Assessment & Plan (1) Sepsis: (2) Bacteremia: (3) Mitral stenosis: (4) Aortic stenosis: (5) Endocarditis: (6) Atrial fibrillation with RVR: Plan Blood culture growing Staphylococcus species. No evidence of paraspinal abscess or discitis per MRI of the thoracic spine. 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 Continue antibiotic therapy. Recurrent atrial fibrillation noted on telemetry with fair rate control. Continue IV amiodarone at this time and oral anticoagulation with Eliquis. Carvedilol will be placed on hold due to borderline hypotension. Transfer to [facility] in [place] when bed available. Admission and Anticipated Discharge Date Admission Date: July 03, 2022 Subjective Patient seen examined the bedside. More alert today. Blood pressure remains borderline hypotensive. Telemetry reveals rate controlled atrial fibrillation. IV amiodarone infusing. No recurrent fevers overnight. Blood cultures growing Staphylococcus species. Awaiting transfer to [facility] in [place]. Review of Systems Review of Systems: All systems reviewed & are unremarkable except as noted in Subjective Physical Exam Physical Exam: PE: Borderline hypotensive. General: NAD, awake and alert. Heart: Irregular rhythm, borderline tachycardic. 2/6 systolic ejection murmur heard best at the base. Lungs: Clear bilateral, no rales, rhonchi, wheeze. Musculoskeletal: No paraspinal musculature tenderness or fluctuance. No erythema or rash. Extremities: No edema. Results & Data ([facility]) Vital Signs (Past 12 Hours) Vital Signs Temp Pulse Pulse Pulse Resp BP Pulse Ox 07/05/22 08:00 82 07/05/22 08:00 07/05/22 07:34 36.5 C 84 14 96/76 L 97 07/05/22 02:46 36.4 C L 83 24 90/64 L 99 07/05/22 01:38 98 H 18 95 O2 Del Method O2 Flow Rate 07/05/22 08:00 07/05/22 08:00 Nasal Cannula 3 07/05/22 07:34 Nasal Cannula 3 07/05/22 02:46 Nasal Cannula 3 07/05/22 01:38 Nasal Cannula 3
--- NOTE | 2022-07-05 12:27 | Hospitalist Progress Note ---
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 --ECHO: No evidence of mass or vegetation. Left ventricle is hyperdynamic. EF greater than 70% with moderate concentric LVH. Cardiac valve is severely calcified. Moderate valvular aortic stenosis. Severe mitral annular calcification. Calcified mitral apparatus causing mitral stenosis. Moderate mitral stenosis. Mild tricuspid regurgitation. --Had MANJINDER on 05/23/22 which showed no vegetations --Completed IV ceftriaxone course for 6 weeks--Last dose on 06/30/22 --Blood Cultures:4/4 gram-positive cocci in clusters --Biofire negative for MRSA --Repeat Blood Cultures pending --Empirically started on cefepime, daptomycin>>Transitioned to Cefazolin --Appreciate cardiology input --Received gentle IV fluids --Home diuretics on hold for now --Patient to be transferred to [facility] for high risk MANJINDER, CT surgery evaluation --Patient is accepted by Dr.Mark Dunbar (Triage Officer) for further management at [facility] : Waiting for bed Afib RVR H/O Paroxysmal atrial fibrillation Continue IV Amiodarone Carvedilol on hold due to hypotension On Eliquis for anticoagulation Back Pain H/O spinal stenosis --Thoracic Spine MRI:No acute fracture or subluxation within the thoracic spine. No evidence for a discitis/osteomyelitis. Moderate to severe degenerative disc disease without significant central canal narrowing. There is an old mild superior endplate compression deformity at T12. Mild levoscoliosis. --Lumbar Spine MRI:Suboptimal evaluation due to motion artifact. However, no fracture or subluxation within the lumbar spine. Mild degenerative changes as described above without significant central canal narrowing. No evidence for discitis/osteomyelitis. Thrombocytopenia Likely secondary to sepsis Monitor platelets No obvious bleeding issues Hypokalemia Replete electrolytes as needed Acute kidney injury Creatinine 1.5>>1.13 Avoid nephrotoxic agents as able Monitor renal function Diarrhea Rule out C. difficile Stool studies pending Hyperlipidemia on statin Asthma stable No signs of exacerbation H/O PE/DVT on Eliquis DVT Px: On Eliquis Code Status Full code Disposition [facility] Admission and Anticipated Discharge Date Admission Date: July 03, 2022 Subjective Patient is seen and examined at bedside States having some dyspnea but otherwise feels well Chills resolved Afebrile today Heart rate s controlled on IV amiodarone Waiting for transfer to [facility] Review of Systems Review of Systems: All systems reviewed & are unremarkable except as noted in Subjective Physical Exam Physical Exam: Physical Exam: Vitals signs as noted above General Appearance:Obese, ill-appearing, no distress Head: normocephalic, Atraumatic Eyes: normal inspection, EOMI Neck: supple, Trachea midline Respiratory/Chest: Decreased breath sounds, minimal crackles, No accessory muscle use Cardiovascular: Irregularly Irregular, + murmur Abdomen/GI:Soft, Non tender, Bowel sounds present Extremities/Musculoskeletal:normal inspection, 1+ LE edema Neurologic/Psych:AAOX3, grossly no focal neurological deficits Skin: normal color, warm Results & Data Results & Data ([facility] Vital Signs (Past 12 Hours) Vital Signs Temp Pulse Pulse Pulse Resp BP Pulse Ox 07/05/22 12:00 36.8 C 83 16 95/73 L 97 07/05/22 08:00 82 07/05/22 08:00 07/05/22 07:34 36.5 C 84 14 96/76 L 97 07/05/22 02:46 36.4 C L 83 24 90/64 L 99 07/05/22 01:38 98 H 18 95 O2 Del Method O2 Flow Rate 07/05/22 12:00 Room Air 07/05/22 08:00 07/05/22 08:00 Nasal Cannula 3 07/05/22 07:34 Nasal Cannula 3 07/05/22 02:46 Nasal Cannula 3 07/05/22 01:38 Nasal Cannula 3 Laboratory Results Short CBC 07/05/22 Range/Units 07:12 WBC 9.09 (4.8-10.8) K/ul Hgb 12.4 L (14.0-18.0) g/dl Hct 37.1 L (42.0-52.0) % Plt Count 86 L (130-400) K/uL BMP 07/04/22 07/05/22 17:58 07:12 Sodium 135 L 136 Potassium 4.1 D 3.6 Chloride 103 102 Carbon Dioxide 24 25 BUN 39 H 38 H Creatinine 1.29 1.13 Glucose 136 H 117 H Calcium 8.1 L 8.8 Urine 07/04/22 Range/Units 17:00 Urine Color Dark Yellow Urine Appearance Clear (Clear) Urine pH 5.0 (4.5-7.5) Ur Specific [place] 1.032 H (1.000-1.030) Urine Protein 2+ H (Negative) Urine Glucose (UA) Negative (Negative)
--- NOTE | 2022-07-05 13:07 | Discharge Summary ---
Date of Service July 05, 2022 Admission HPI Per Admitting Provider History obtained from patient and records. 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 Last confinement April 2022 for sepsis secondary to MSSA bacteremia secondary to presumptive infective endocarditis. No definitive vegetation on MANJINDER due to underlying mitral/aortic valve calcification. Vegetation cannot be excluded as per report. [facility] [place] outpatient Ceftriaxone course for total of 6 weeks. Follow-up MANJINDER contemplated by cardiology last week of June or first week of July 2022 as per outpatient records. Patient completed antibiotic regimen a few days ago. 2 days history of watery diarrhea symptoms without abdominal pain. Fever, chills, fatigue noted today. No cough symptoms. No chest pain, no shortness of breath, no headache. Ceftriaxone administered at the ER. 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 Admission Exam Per Admitting Provider GENERAL: Slightly uncomfortable, obese, pleasant, no respiratory distress SKIN: Normal color, warm HEENT: Alopecia, pink palpebral conjunctivae, no ptosis, dry buccal mucosa NECK : Supple, short neck, no tenderness CHEST : Decreased breath sounds, no tenderness HEART : Tachycardic, systolic murmur heard over left sternal border ABDOMEN: Some distention, nontender EXTREMITIES : Minimal LE swelling, no LE tenderness, no other conspicuous deformities noted NEUROLOGIC : Coherent, no facial asymmetry, no other gross focality Principal Diagnosis Sepsis Staph bacteremia 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, failed IV antibiotic course Afib RVR Valvular heart disease Diarrhea Hypokalemia Discharge Data Allergies Allergy/AdvReac Type Severity Reaction Status Date / Time mold Allergy Mild Congested Verified 07/03/22 22:30 pollen extracts Allergy Mild Congested Verified 07/03/22 22:30 doxycycline AdvReac Severe LIVER/KIDNEY Verified 07/03/22 22:32 PROBLEMS Consultations 07/03/22 22:12 ED Decision to Admit Stat 07/04/22 08:29 Consult Cardiology Routine 07/04/22 14:40 Consult Infectious Diseases Routine Procedures Performed Laboratory Results WBC 9.09 K/ul (4.8-10.8) 07/05/22 07:12 RBC 4.02 M/uL (4.70-6.10) L 07/05/22 07:12 Hgb 12.4 g/dl (14.0-18.0) L 07/05/22 07:12 Hct 37.1 % (42.0-52.0) L 07/05/22 07:12 MCV 92.3 fL (80.0-100.0) 07/05/22 07:12 MCH 30.8 pg (25.0-34.0) 07/05/22 07:12 MCHC 33.4 g/dL (32.0-36.0) 07/05/22 07:12 RDW Std Deviation 46.5 fL (36.4-46.3) H 07/05/22 07:12 RDW Coeff of Hanh 13.6 % (11.5-14.5) 07/05/22 07:12 Plt Count 86 K/uL (130-400) L 07/05/22 07:12 MPV 10.2 fL (9.4-12.4) 07/05/22 07:12 Immature Gran % (Auto) 1.1 % 07/04/22 06:26 Neut % (Auto) 83.2 % 07/04/22 06:26 Lymph % (Auto) 4.9 % 07/04/22 06:26 Gove % (Auto) 9.5 % 07/04/22 06:26 Eos % (Auto) 1.1 % 07/04/22 06:26 Baso % (Auto) 0.2 % 07/04/22 06:26 Neut # (Auto) 10.51 K/uL (1.40-6.50) H 07/04/22 06:26 Lymph # (Auto) 0.62 K/uL (1.2-3.4) L 07/04/22 06:26 Gove # (Auto) 1.20 K/uL (0.11-0.59) H 07/04/22 06:26 Eos # (Auto) 0.14 K/uL (0-0.50) 07/04/22 06:26 Baso # (Auto) 0.03 K/uL (0-0.2) 07/04/22 06:26 Immature Gran # (Auto) 0.14 K/uL (0.01-0.20) 07/04/22 06:26 Toxic Vacuolation 2+ 07/03/22 20:02 PT 12.5 Seconds (9.0-12.0) H 07/03/22 21:07 INR 1.2 (0.9-1.1) H 07/03/22 21:07 APTT 29.1 Seconds (21.0-31.0) 07/03/22 21:07 PTT Ratio 1.1 07/03/22 21:07 ABG pH 7.47 (7.35-7.45) H 07/05/22 01:43 ABG pCO2 33 mmHg (35-46) L 07/05/22 01:43 ABG pO2 155 mmHg (80-95) H 07/05/22 01:43 ABG HCO3 24 mmol/L (19-24) 07/05/22 01:43 ABG O2 Saturation 99.7 % (90-95) H 07/05/22 01:43 ABG Base Excess 0.9 mEq/L (-9-1.8) 07/05/22 01:43 Julio Cesar Test Pos (Pos) 07/05/22 01:43 VBG pH 7.48 (7.36-7.41) H 07/03/22 21:07 VBG pCO2 37 mmHg (38-50) L 07/03/22 21:07 VBG pO2 96 mmHg 07/03/22 21:07 VBG HCO3 28 mmol/L 07/03/22 21:07 VBG O2 Saturation 98.5 % 07/03/22 21:07 VBG Base Excess 4.0 mEq/L 07/03/22 21:07 Oxygen Given 3L 07/05/22 01:43 Sodium 136 mmol/L (136-145) 07/05/22 07:12 Potassium 3.6 mmol/L (3.5-5.1) 07/05/22 07:12 Chloride 102 mmol/L (98-107) 07/05/22 07:12 Carbon Dioxide 25 mmol/L (21-32) 07/05/22 07:12 Anion Gap 9 (3-11) 07/05/22 07:12 BUN 38 mg/dl (6-23) H 07/05/22 07:12 Creatinine 1.13 mg/dl (0.6-1.4) 07/05/22 07:12 Est Cr Clr Drug Dosing 63.4 ml/min 07/05/22 07:12 Est GFR ( Amer) 72.3 ml/min 07/05/22 07:12 Est GFR (Non-Af Amer) 62.4 ml/min 07/05/22 07:12 BUN/Creatinine Ratio 33.6 (10-20) H 07/05/22 07:12 Glucose 117 mg/dl (70-99(Fasting)) H 07/05/22 07:12 Lactate 1.4 mmol/L (0.4-2.0) 07/03/22 20:02 Calcium 8.8 mg/dl (8.5-10.1) 07/05/22 07:12 Magnesium 2.3 mg/dl (1.7-2.4) 07/05/22 07:12 Total Bilirubin 1.3 mg/dl (0.2-1.0) H 07/03/22 20:02 Direct Bilirubin 0.2 mg/dl (0-0.2) 07/03/22 21:07 AST 22 U/L (13-39) 07/03/22 21:07 ALT 13 U/L (7-52) 07/03/22 20:02 Alkaline Phosphatase 43 U/L (34-104) 07/03/22 21:07 Troponin I High Sens 183.6 pg/ml (0-20) H* D 07/04/22 06:26 B-Natriuretic Peptide 271 pg/ml (0-100) H 07/03/22 20:08 Total Protein 6.7 gm/dl (6.0-8.3) 07/03/22 20:02 Albumin 3.5 gm/dl (3.4-5.0) 07/03/22 21:07 Globulin TNP 07/03/22 20:02 Albumin/Globulin Ratio TNP 07/03/22 20:02 Procalcitonin 19.19 ng/ml (0-0.5) H 07/03/22 21:07 Urine Color Dark Yellow 07/04/22 17:00 Urine Appearance Clear (Clear) 07/04/22 17:00 Urine pH 5.0 (4.5-7.5) 07/04/22 17:00 Ur Specific Felicity 1.032 (1.000-1.030) H 07/04/22 17:00 Urine Protein 2+ (Negative) H 07/04/22 17:00 Urine Glucose (UA) Negative (Negative) 07/04/22 17:00 Urine Ketones Trace (Negative) H 07/04/22 17:00 Urine Blood 2+ (Negative) H 07/04/22 17:00 Urine Nitrite Negative (Negative) 07/04/22 17:00 Urine Bilirubin Negative (Negative) 07/04/22 17:00 Urine Urobilinogen Negative (Negative) 07/04/22 17:00 Ur Leukocyte Esterase Negative (Negative) 07/04/22 17:00 Urine WBC (Auto) 1-5 /hpf (0-5) 07/04/22 17:00 Urine RBC (Auto) 5-10 /hpf (0-4) H 07/04/22 17:00 U Hyaline Cast (Auto) 5-10 /lpf (0-5) H 07/04/22 17:00 U Epithel Cells (Auto) 10-20 /lpf (0-5) H 07/04/22 17:00 Urine Bacteria (Auto) Negative (Negative) 07/04/22 17:00 Stl C. cayetanensis PCR Not Detected (NotDetected) 07/04/22 12:25 Stool Rotavirus A PCR Not Detected (NotDetected) 07/04/22 12:25 Stl Adenov F 40/41 PCR Not Detected (NotDetected) 07/04/22 12:25 Stool Astrovirus (PCR) Not Detected (NotDetected) 07/04/22 12:25 Stool Campylobacter PCR Not Detected (NotDetected) 07/04/22 12:25 Stl C. diff Tox B Gene Negative Cdiff Gene (Neg) 07/04/22 12:25 Stool Cryptosporidium PCR Not Detected (NotDetected) 07/04/22 12:25 Stl E.coli Shiga Tox PCR Not Detected (NotDetected) 07/04/22 12:25 Stl Enterotoxigenic E PCR Not Detected (NotDetected) 07/04/22 12:25 Stool EPEC (PCR) Not Detected (NotDetected) 07/04/22 12:25 Stool EAEC (PCR) Not Detected (NotDetected) 07/04/22 12:25 Stl E. histolytica PCR Not Detected (NotDetected) 07/04/22 12:25 Stool Giardia Lamblia PCR Not Detected (NotDetected) 07/04/22 12:25 Stool Salmonella PCR Not Detected (NotDetected) 07/04/22 12:25 Stool Sapovirus (PCR) Not Detected (NotDetected) 07/04/22 12:25 Stl P. shigelloides PCR Not Detected (NotDetected) 07/04/22 12:25 Stl Shigella/EIEC PCR Not Detected (NotDetected) 07/04/22 12:25 St Y.enterocolitica PCR Not Detected (NotDetected) 07/04/22 12:25 Stool Vibrio (PCR) Not Detected (NotDetected) 07/04/22 12:25 Stl Vibrio cholerae PCR Not Detected (NotDetected) 07/04/22 12:25 Stl Norovirus GI/GII PCR Not Detected (NotDetected) 07/04/22 12:25 SARS-CoV-2 (PCR) NEGATIVE (Negative) 07/03/22 Unknown Influenza Type A (PCR) Negative (Neg) 07/03/22 Unknown Influenza Type B (PCR) Negative (Neg) 07/03/22 Unknown RSV (RT-PCR) Negative (Neg) 07/03/22 Unknown Staphylococcus sp PCR DETECTED (NotDetected) A 07/03/22 20:02 Staph aureus (PCR) DETECTED (NotDetected) A 07/03/22 20:02 mecA/C & MREJ Resist Gene MRSA Not Detected (NotDetected) 07/03/22 20:02 Bld Cult ID Panel PCR See PCR Comment (NotDetected) 07/03/22 20:02 Impressions Lumbar Spine MRI 07/04/22 14:42 LUMBAR SPINE MRI HISTORY: Back Pain, Persistent Bacteremia TECHNIQUE: Multiplanar multisequence MRI of the lumbar spine was performed without the use of contrast. COMPARISON: None. FINDINGS: For the purpose of the report the L5-S1 disc space will be located on axial image 38 of 44.. Near nondiagnostic evaluation of the axial sequences due to the significant motion artifact. There is also motion artifact within the sagittal sequences resulting in suboptimal evaluation. There is mild levoscoliosis of the lumbar spine. No fracture or subluxation. Mild disc space narrowing at L1-L2. Moderate disc space narrowing at L3-L4, L4-5, and L5-S1. There are mild facet degenerative changes within the lumbar spine. Subcutaneous edema seen within the lumbar region. There is an old mild superior endplate compression deformity at T12. The conus terminates at the L1 level. No epidural or paraspinal fluid collections identified. No erosive changes or abnormal disc signal intensity to suggest a discitis/osteomyelitis. L1-L2: Small broad-based posterior disc bulge asymmetric to the left resulting in mild left-sided neural foraminal narrowing. No significant central canal or right-sided neural foraminal narrowing. L2-L3: Small broad-based posterior disc bulge asymmetric to the left resulting in mild left-sided neural foraminal narrowing. No significant central canal or right-sided neural foraminal narrowing. L3-L4: Small broad-based posterior disc bulge without significant central canal or left-sided neural foraminal narrowing. There is mild right-sided neural foraminal narrowing. L4-L5: Small broad-based posterior disc bulge with a small focal central disc protrusion measuring 3 mm without significant central canal narrowing. There is mild right-sided neural foraminal narrowing. No significant left-sided neural foraminal narrowing. L5-S1: Small broad-based posterior disc bulge without significant central canal narrowing. There is mild left-sided neural foraminal narrowing. IMPRESSION: 1. Suboptimal evaluation due to motion artifact. However, no fracture or subluxation within the lumbar spine. 2. Mild degenerative changes as described above without significant central canal narrowing. 3. No evidence for discitis/osteomyelitis. ACT 112: Negative or not required by law. Electronically signed by: Dion Bear M.D. 07/04/2022 7:38 PM Thoracic Spine MRI 07/04/22 14:42 THORACIC SPINE MRI HISTORY: Back Pain, Persistent Bacteremia TECHNIQUE: Multiplanar multisequence MRI of the thoracic spine was performed without the use of contrast. COMPARISON: Chest CTA 05/16/2022. FINDINGS: No acute fracture or subluxation within the thoracic spine. Mild focal super endplate indentation at T12 consistent with an old compression deformity. Moderate to severe disc space narrowing throughout the thoracic spine consistent with degenerative changes. Mild levoscoliosis of the thoracic spine. No significant central canal or neural foraminal narrowing. Small broad-based posterior disc bulges within the majority thoracic spine. The thoracic spinal cord is normal in course, caliber, and signal intensity. No paraspinal or epidural fluid collections identified. A 1 cm vertebral body hemangioma at T5 is noted. Mild endplate degenerative changes are seen within the thoracic spine. No erosive changes to suggest a discitis/osteomyelitis. IMPRESSION: 1. No acute fracture or subluxation within the thoracic spine. 2. No evidence for a discitis/osteomyelitis. 3. Moderate to severe degenerative disc disease without significant central canal narrowing. 4. There is an old mild superior endplate compression deformity at T12. 5. Mild levoscoliosis. ACT 112: Negative or not required by law. Electronically signed by: Dion Bear M.D. 07/04/2022 4:29 PM Chest X-Ray 07/05/22 01:17 XR chest 1V portable HISTORY: 76 years-old Male low o2 acute shortness of breath COMPARISON: Chest radiograph 07/03/2022 TECHNIQUE: AP view of the chest FINDINGS: Cardiac silhouette is enlarged. Pulmonary vascular congestion with improved pulmonary edema. No pneumothorax. Trace pleural effusions. Improved aeration of the lung bases. Degenerative changes of the shoulders and spine. IMPRESSION: 1. Cardiomegaly with pulmonary vascular congestion and improving pulmonary edema. 2. Trace pleural effusions with improved aeration of the lung bases. ACT 112: Negative or not required by law. The above report was generated using voice recognition software. It may contain grammatical, syntax or spelling errors. Electronically signed by: Edilberto Cruz M.D. 07/05/2022 7:53 AM Ordered Studies 07/04/22 14:42 MRI Lumbar Spine [MR lumbar spine wo con] Routine MRI Spine [MR thoracic spine wo con] Routine Hospital Course (1) Sepsis: Sepsis Staphylococcal bacteremia 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, failed IV antibiotic course Valvular heart disease Rule Out C diff --CXR:Cardiomegaly with evidence of congestive failure. --ECHO: No evidence of mass or vegetation. Left ventricle is hyperdynamic. EF greater than 70% with moderate concentric LVH. Cardiac valve is severely calcified. Moderate valvular aortic stenosis. Severe mitral annular calcification. Calcified mitral apparatus causing mitral stenosis. Moderate mitral stenosis. Mild tricuspid regurgitation. --Had MANJINDER on 05/23/22 which showed no vegetations --Completed IV ceftriaxone course for 6 weeks--Last dose on 06/30/22 --Blood Cultures:4/4 gram-positive cocci in clusters --Biofire negative for MRSA --Repeat Blood Cultures pending --Empirically started on cefepime, daptomycin>>Transitioned to Cefazolin --Appreciate cardiology input --Received gentle IV fluids --Home diuretics on hold for now --Patient to be transferred to [facility] for high risk MANJINDER, CT surgery evaluation --Patient is accepted by Dr.Mark Dunbar (Triage Officer) for further management at [facility] : Waiting for bed Afib RVR H/O Paroxysmal atrial fibrillation Continue IV Amiodarone Carvedilol on hold due to hypotension On Eliquis for anticoagulation Back Pain H/O spinal stenosis --Thoracic Spine MRI:No acute fracture or subluxation within the thoracic spine. No evidence for a discitis/osteomyelitis. Moderate to severe degenerative disc disease without significant central canal narrowing. There is an old mild superior endplate compression deformity at T12. Mild levoscoliosis. --Lumbar Spine MRI:Suboptimal evaluation due to motion artifact. However, no fracture or subluxation within the lumbar spine. Mild degenerative changes as described above without significant central canal narrowing. No evidence for discitis/osteomyelitis. Thrombocytopenia Likely secondary to sepsis Monitor platelets No obvious bleeding issues Hypokalemia Replete electrolytes as needed Acute kidney injury Creatinine 1.5>>1.13 Avoid nephrotoxic agents as able Monitor renal function Diarrhea Rule out C. 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, failed IV antibiotic course Afib RVR Valvular heart disease Diarrhea Hypokalemia Activity: Per Instructions section Exercise/Sports: Wait until after follow-up appointment Non-emergency contact: Primary Care Provider and General Merchandise Manager Call non-emergency contact if: you have any medication questions, your symptoms worsen, your pain is concerning for you and you have a fever Follow-up/Referrals: Alex Steve DO [Primary Care Provider] - Diet: Heart Healthy Jessica Attending Provider Instructions: Follow-up with Dr.Mark Dunbar and cardiology team at [facility] for further management. Jessica Stove Bottom Worker Provider Instructions: Date of Service: July 04, 2022 Current Inpatient Medications Acetaminophen (Acetaminophen 325 Mg Tab) 650 mg PO Q4H PRN PRN Reason: Pain or Fever Stop: 08/03/22 01:25 Last Admin: 07/04/22 15:03 Dose: 650 mg Alfuzosin HCl (Alfuzosin Hcl 10 Mg Tab) 10 mg PO QAM [facility] Stop: 08/03/22 08:59 Last Admin: 07/04/22 07:50 Dose: 10 mg Allopurinol (Allopurinol 100 Mg Tab) 200 mg PO BID [facility] Stop: 08/03/22 08:59 Last Admin: 07/04/22 07:49 Dose: 200 mg Apixaban (Apixaban 5 Mg Tablet) 5 mg PO BID [facility] Stop: 08/03/22 01:25 Last Admin: 07/04/22 07:48 Dose: 5 mg Artificial Tears (Artificial Tears) 1 drops OP Q4H PRN PRN Reason: Dry Eyes Stop: 08/03/22 01:58 Azelastine HCl (Azelastine Hcl 0.1% Nasal 200 Sprays/27,400 Mcg Btl) 1 sprays NA BID PRN PRN Reason: Congestion Stop: 08/03/22 01:25 Carvedilol (Carvedilol 3.125 Mg Tab) 3.125 mg PO BID [facility] Stop: 08/03/22 08:59 Last Admin: 07/04/22 07:51 Dose: Not Given Cetirizine HCl (Cetirizine Hcl 10 Mg Tablet) 10 mg PO QAM [facility] Stop: 08/03/22 08:59 Last Admin: 07/04/22 07:49 Dose: 10 mg Finasteride (Finasteride 5 Mg Tab) 5 mg PO DAILY [facility] Stop: 08/03/22 08:59 Last Admin: 07/04/22 07:49 Dose: 5 mg Fluticasone Propionate (Fluticasone Propionate Na Spr 16 Gm Btl) 2 sprays NA DAILY [facility] Stop: 08/03/22 08:59 Last Admin: 07/04/22 07:51 Dose: 2 sprays Fluticasone/Vilanterol (Fluticasone/Vilanterol 100/25mcg 14 Puffs/Inhaler) 1 puffs INH DAILY [facility] Stop: 08/03/22 08:59 Last Admin: 07/04/22 07:50 Dose: 1 puffs Promethazine HCl 12.5 mg/ (Sodium Chloride) 50.5 mls @ 202 mls/hr IV Q6H PRN PRN Reason: Nausea And Vomiting Stop: 08/03/22 01:25 Daptomycin 500 mg/ Syringe 10 mls @ 5 mls/min IV Q24H [facility]; Protocol Stop: 07/07/22 01:59 Cefepime HCl 2,000 mg/ Syringe 20 mls @ 5 mls/min IV Q12H [facility]; Protocol Stop: 07/06/22 10:59 Last Admin: 07/04/22 11:31 Dose: 5 mls/min Sodium Chloride (Nss 1000ml) 1,000 mls @ 60 mls/hr IV .[id number] ONE Stop: 07/05/22 01:07 Last Admin: 07/04/22 09:33 Dose: 60 mls/hr Amiodarone HCl/Dextrose (Nexterone / D5w) 360 mg in 200 mls @ 33.333 mls/hr IV ONE ONE Stop: 07/05/22 00:28 Last Admin: 07/04/22 18:54 Dose: 1 mg/min, 33.3 mls/hr Amiodarone HCl/Dextrose (Nexterone / D5w) 360 mg in 200 mls @ 16.667 mls/hr IV .Q12H [facility] Stop: 08/03/22 23:44 Miscellaneous (Eplerenone~Order Awaiting Action) 1 each N/A QS [facility] Stop: 08/03/22 01:59 Last Admin: 07/04/22 07:53 Dose: Not Given Montelukast Sodium (Montelukast Sodium 10 Mg Tablet) 10 mg PO HS [facility] Stop: 08/03/22 20:59 Potassium Chloride (Potassium Chloride Crtab 20 Meq Tabcr) 40 meq PO QAM [facility] Stop: 08/03/22 08:59 Last Admin: 07/04/22 07:49 Dose: 40 meq Potassium Chloride (Potassium Chloride Crtab 20 Meq Tabcr) 20 meq PO 1700 [facility] Stop: 08/03/22 16:59 Last Admin: 07/04/22 15:03 Dose: 20 meq Pending Studies at Discharge: Yes Studies:: Blood Cultures Stand-Alone Forms: My [facility] Skilled Items Patient informed of condition?: Yes DNR: No Discharge Level of Care: Other Communicable Disease: No Discharge Prognosis: Stable Lines: Peripheral IV Urinary Catheter: No Medications and DC Order Prescriptions: Continued carvedilol 12.5 mg Tablet 18.75 mg PO Q12H Rx Instructions: TAKES 1 & 1/2 TABS. cetirizine 10 mg Tablet 10 mg PO QAM indapamide 2.5 mg Tablet 2.5 mg PO QAM allopurinol 100 mg Tablet 200 mg PO BID albuterol sulfate 90 mcg/actuation Hfa Aerosol Inhaler 1 inh INHALATION QID PRN (Reason: sob) apixaban 5 mg Tablet 5 mg PO BID budesonide-formoterol [Symbicort] 160-4.5 mcg/actuation Hfa Aerosol Inhaler 1 inh INHALATION BID alfuzosin [Uroxatral] 10 mg tablet extended release 24 hr 10 mg PO QAM Rx Instructions: administer after the same meal each day amoxicillin 500 mg Capsule 2,000 mg PO DIRECTED PRN (Reason: PRIOR TO DENTAL APPT.) albuterol sulfate 2.5 mg /3 mL (0.083 %) Solution For Nebulization 2.5 mg INHALATION Q6H PRN (Reason: SHORTNESS OF BREATH/COUGH) montelukast [Singulair] 10 mg Tablet 10 mg PO HS azelastine 137 mcg (0.1 %) Aerosol,[place] 1 spray INTRANASAL BID PRN (Reason: Congestion) Rx Instructions: administer into each nostril eplerenone 25 mg tablet 25 mg PO QAM Rx Instructions: LAST FILLED 08/2021. Systane (PF) 0.4-0.3 % Dropperette 1 drp OPHTHALMIC (EYE) DIRECTED PRN (Reason: Dry Eyes) Zyncof 20-400 mg/5 mL Liquid 5 ml PO DIRECTED PRN (Reason: Congestion) potassium chloride 20 mEq tablet,ER particles/crystals See Rx Instructions .ROUTE .COMPLEX Rx Instructions: 20 mEq orally; TAKES 40 MEQ QAM, THEN 20 MEQ QPM. finasteride 5 mg tablet 5 mg PO DAILY mometasone 50 mcg/actuation [place],Non-Aerosol 2 spray INTRANASAL DAILY Rx Instructions: administer into each nostril furosemide 20 mg Tablet 20 mg PO QAM Qty: 30 0RF Discharge Orders: Discharge Order (Routine); Ordered 07/05/22 Ordered By: Sanjay Gutiérrez Admission Data Admit Date/Time: 07/03/22 23:32 Attending Provider: Sanjay Gutiérrez Admit Provider: Won Allan Primary Care Provider: Alex Steve Other Providers: Won Allan ; Gael Goncalves ; Joaquin Centeno ; Michael Cantu ; Derick Gonzalez I. ; Jose Alfredo Kline II ; Terra Sherwood ; Luis Fernando Nieves ; Vinicio Luong ; Jesús Nguyen
[2022-07-05] MEDS: MONTELUKAST SODIUM 10 MG TABLET PO SCH (20:03)
[2022-07-05] MEDS: ACETAMINOPHEN 325 MG TAB PO PRN (20:06)
[2022-07-06] MEDS: AMIODARONE / D5W 360 MG/200 ML BAG IV SCH ×3 (00:12→22:17)
[2022-07-06] MEDS: ceFAZolin 2000MG 2,000 MG/15 ML SYR IV SCH ×3 (02:38→18:07)
[2022-07-06] MEDS: ACETAMINOPHEN 325 MG TAB PO PRN ×2 (03:36→15:59)
[2022-07-06 05:49] LABS: Hematocrit (blood only) 33.8 % (42.0-52.0); Hemoglobin 11.6 g/dl (14.0-18.0); Mean Corpuscular Hgb Conc 34.3 g/dL (32.0-36.0); Mean Corpuscular Volume 90.4 fL (80.0-100.0); Mean Platelet Volume 10.6 fL (9.4-12.4); Platelet Count 91 K/uL (130-400); RDW Coefficient of Variation 13.3 % (11.5-14.5); Red Blood Count 3.74 M/uL (4.70-6.10); White Blood Count 9.11 K/ul (4.8-10.8)
[2022-07-06 06:12] LABS: BUN Creatinine Ratio 27.2 (10-20); Calcium 8.7 mg/dl (8.5-10.1); Creatinine Clr Calc Pharmacy 78.2 ml/min; Est GFR (African American) 92.7 ml/min; Est GFR (Non-African American) 79.9 ml/min; Potassium 3.5 mmol/L (3.5-5.1)
[2022-07-06] MEDS: FLUTICASONE/VILANTEROL 100/25MCG 14 PUFFS/INHALER INH SCH (08:00)
[2022-07-06] MEDS: ALFUZOSIN HCL 10 MG TAB PO SCH (08:00)
[2022-07-06] MEDS: APIXABAN 5 MG TABLET PO SCH ×2 (08:00→21:58)
[2022-07-06] MEDS: FINASTERIDE 5 MG TAB PO SCH (08:00)
[2022-07-06] MEDS: CETIRIZINE HCL 10 MG TABLET PO SCH (08:00)
[2022-07-06] MEDS: allopurinoL 100 MG TAB PO SCH ×2 (08:00→21:58)
[2022-07-06] MEDS: POTASSIUM CHLORIDE CRTAB 20 MEQ TABCR PO SCH ×2 (08:02→18:07)
[2022-07-06] MEDS: FLUTICASONE PROPIONATE NA SPR 16 GM BTL SCH (08:56)
[2022-07-06 11:48] LABS: A calco-baum cmplx NotReported Not Detected (NotDetected); Bact fragilis Not Reported DETECTED (NotDetected); Bacteroides fragilis DETECTED (NotDetected); C auris Not Reported Not Detected (NotDetected); Calbicans Not Reported Not Detected (NotDetected); Candida glabrata Not Reported Not Detected (NotDetected); Candida krusei Not Reported Not Detected (NotDetected); Cneoformans/gatti Not Reported Not Detected (NotDetected); Cparapsilosis Not Reported Not Detected (NotDetected); Ctropicalis Not Reported Not Detected (NotDetected); E cloacae compx Not Reported Not Detected (NotDetected); Efaecalis Not Reported Not Detected (NotDetected); Efaecium Not Reported Not Detected (NotDetected); Enterobacterales Not Reported Not Detected (NotDetected); Escherichia coli Not Reported Not Detected (NotDetected); H influenzae Not Reported Not Detected (NotDetected); K aerogenes Not Reported Not Detected (NotDetected); Koxytoca Not Reported Not Detected (NotDetected); Kpneumoniae grp Not Reported Not Detected (NotDetected); Lmonocyt Not Reported Not Detected (NotDetected); N meningitidis Not Reported Not Detected (NotDetected); P aeruginosa Not Reported Not Detected (NotDetected); Proteus spp Not Reported Not Detected (NotDetected); Salmonella spp Not Reported Not Detected (NotDetected); Smarcescens Not Reported Not Detected (NotDetected); Staph lugdunensis Not Reported Not Detected (NotDetected); Staph spp. Not Reported DETECTED (NotDetected); Staphaureus Not Reported DETECTED (NotDetected); Staphepi Not Reported Not Detected (NotDetected); Staphylococcus spp. DETECTED (NotDetected); Stenmaltophilia Not Reported Not Detected (NotDetected); Strep agal(GrpB) Not Reported Not Detected (NotDetected); Strep pneum Not Reported Not Detected (NotDetected); Strep pyog (GrpA) Not Reported Not Detected (NotDetected); Strep spp Not Reported Not Detected (NotDetected); mecAC+MREJ Resistant Gene MRSA Not Detected (NotDetected)
--- NOTE | 2022-07-06 12:46 | Cardiology Progress Note ---
Date of Service July 06, 2022 Assessment & Plan (1) Sepsis: (2) Bacteremia: (3) Mitral stenosis: (4) Aortic stenosis: (5) Endocarditis: (6) Atrial fibrillation with RVR: Plan Blood culture growing Staphylococcus species. No evidence of paraspinal abscess or discitis per MRI of the thoracic spine. 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 Continue antibiotic therapy. Atrial fibrillation with better rate control. Better mentation and improved hemodynamics since initiation of antibiotic therapies Transfer to [facility] in [place] when bed available. Admission and Anticipated Discharge Date Admission Date: July 03, 2022 Subjective Patient seen and examined, chart, medications, telemetry reviewed. Per patient report he is improved less confused and more oriented since last days time Blood pressures and heart rate improved. Remains in atrial fibrillation but with better rate control. No heart block or pauses Anticipates transfer to [facility] Review of Systems Review of Systems: All systems reviewed & are unremarkable except as noted in Subjective Physical Exam Constitutional: well developed; no acute distress Eyes: PERRL, conjunctivae normal, anicteric sclerae Neck: + thick neck Respiratory: normal respiratory effort, lungs clear to auscultation Cardiovascular: Rate/Rhythm: + irregularly irregular Heart Sounds: + murmur (Grade 2 or 6 systolic, no diastolic) Vessels: no JVD Extremities: no edema Gastrointestinal (Abdomen): normal bowel sounds, soft, nontender, no hepatosplenomegaly Results & Data ([facility]) Vital Signs (Past 12 Hours) Vital Signs Temp Pulse Pulse Pulse Resp BP Pulse Ox 07/06/22 11:13 36.4 C L 80 18 119/78 96 07/06/22 07:15 65 07/06/22 07:15 07/06/22 07:15 36.5 C 77 14 108/73 92 07/06/22 02:17 36.9 C 81 18 110/73 95 O2 Del Method O2 Flow Rate 07/06/22 11:13 Nasal Cannula 2 07/06/22 07:15 07/06/22 07:15 Nasal Cannula 2 07/06/22 07:15 Nasal Cannula 2 07/06/22 02:17 Nasal Cannula 2 Laboratory Results Laboratory Results - last 24 hr 07/05/22 07/06/22 07/06/22 07:19 05:18 05:18 WBC 9.11 RBC 3.74 L Hgb 11.6 L Hct 33.8 L MCV 90.4 MCH 31.0 MCHC 34.3 RDW Std Deviation 44.0 RDW Coeff of Hanh 13.3 Plt Count 91 L MPV 10.6 Sodium 135 L Potassium 3.5 Chloride 101 Carbon Dioxide 27 Anion Gap 7 BUN 25 H Creatinine 0.92 Est Cr Clr Drug Dosing 78.2 Est GFR ( Amer) 92.7 Est GFR (Non-Af Amer) 79.9 BUN/Creatinine Ratio 27.2 H Glucose 110 H Calcium 8.7 Bacteroides fragilis DETECTED A Staphylococcus sp PCR DETECTED A Staph aureus (PCR) DETECTED A mecA/C & MREJ Resist Gene MRSA Not Detected Bld Cult ID Panel PCR See PCR Comment
--- NOTE | 2022-07-06 14:32 | Hospitalist Progress Note ---
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 --ECHO: No evidence of mass or vegetation. Left ventricle is hyperdynamic. EF greater than 70% with moderate concentric LVH. Cardiac valve is severely calcified. Moderate valvular aortic stenosis. Severe mitral annular calcification. Calcified mitral apparatus causing mitral stenosis. Moderate mitral stenosis. Mild tricuspid regurgitation. --Had MANJINDER on 05/23/22 which showed no vegetations --Completed IV ceftriaxone course for 6 weeks--Last dose on 06/30/22 --Blood Cultures:08/27 MSSA --Biofire negative for MRSA --Repeat Blood Cultures--05/29 growing gram-positive cocci in clusters --Empirically started on cefepime, daptomycin>>Transitioned to Cefazolin --Appreciate cardiology input --Resume home diuretics as able --Patient to be transferred to [facility] for high risk MANJINDER, CT surgery evaluation --Patient is accepted by Dr.Mark Dunbar (Triage Officer) for further management at [facility] : Waiting for bed/Insurance Auth Afib RVR H/OParoxysmal atrial fibrillation Continue IV Amiodarone Carvedilol on hold due to hypotension On Eliquis for anticoagulation Back Pain Chronic H/O spinal stenosis --Thoracic Spine MRI:No acute fracture or subluxation within the thoracic spine. No evidence for a discitis/osteomyelitis. Moderate to severe degenerative disc disease without significant central canal narrowing. There is an old mild superior endplate compression deformity at T12. Mild levoscoliosis. --Lumbar Spine MRI:Suboptimal evaluation due to motion artifact. However, no fracture or subluxation within the lumbar spine. Mild degenerative changes as described above without significant central canal narrowing. No evidence for discitis/osteomyelitis. Thrombocytopenia Likely secondary to sepsis Monitor platelets No obvious bleeding issues Hypokalemia Replete electrolytes as needed Acute kidney injury Creatinine 1.5>1.13>0.92 Avoid nephrotoxic agents as able Monitor renal function Diarrhea Stool studies Negative Hyperlipidemia on statin Asthma stable No signs of exacerbation H/O PE/DVT on Eliquis DVT Px: On Eliquis Code Status Full code Disposition [facility] when bed available Admission and Anticipated Discharge Date Admission Date: July 03, 2022 Subjective Patient is seen and examined at bedside States being transiently disoriented yesterday Oriented X 3 during my encounter No new complaints Waiting for transfer to [facility] Denies chest pain, dyspnea, dizziness, nausea, abd pain Reports mild back pain Review of Systems 2 Review of Systems: All systems reviewed & are unremarkable except as noted in Subjective Physical Exam Physical Exam: Physical Exam: Vitals signs as noted above General Appearance:Obese, ill-appearing, no distress Head: normocephalic, Atraumatic Eyes: normal inspection, EOMI Neck: supple, Trachea midline Respiratory/Chest: Decreased breath sounds, minimal crackles, No accessory muscle use Cardiovascular: Irregularly Irregular, + murmur Abdomen/GI:Soft, Non tender, Bowel sounds present Extremities/Musculoskeletal:normal inspection, 1+ LE edema Neurologic/Psych:AAOX3, grossly no focal neurological deficits Skin: normal color, warm Results & Data Results & Data ([facility]) Vital Signs (Past 12 Hours) Vital Signs Temp Pulse Pulse Pulse Resp BP Pulse Ox 07/06/22 11:13 36.4 C L 80 18 119/78 96 07/06/22 07:15 65 07/06/22 07:15 07/06/22 07:15 36.5 C 77 14 108/73 92 O2 Del Method O2 Flow Rate 07/06/22 11:13 Nasal Cannula 2 07/06/22 07:15 07/06/22 07:15 Nasal Cannula 2 07/06/22 07:15 Nasal Cannula 2 Laboratory Results Short CBC 07/06/22 Range/Units 05:18 WBC 9.11 (4.8-10.8) K/ul Hgb 11.6 L (14.0-18.0) g/dl Hct 33.8 L (42.0-52.0) % Plt Count 91 L (130-400) K/uL BMP 07/06/22 05:18 Sodium 135 L Potassium 3.5 Chloride 101 Carbon Dioxide 27 BUN 25 H Creatinine 0.92 Glucose 110 H Calcium 8.7
[2022-07-06] MEDS: MONTELUKAST SODIUM 10 MG TABLET PO SCH (21:58)
[2022-07-07] MEDS ORDERED: FUROSEMIDE 20 MG TAB PO SCH (09:00)
[2022-07-07] MEDS ORDERED: ADVANCED PROBIOTIC 1250 MG CAPSULE PO SCH (09:00)
== END 2022-07-06 22:30 | disposition short-term general hospital (02) | DRG 871 ==
LOC: ED 18:58 → 2W 23:32 → 2E 07-04 18:28

== ENCOUNTER 2022-10-07 13:19 | Inpatient (IN) ==
[2022-10-07] MEDS ORDERED: FUROSEMIDE 40 MG/4 ML VIAL IV ONE (13:41)
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
[2022-10-07 14:00] LABS: Basophils # (auto) 0.03 K/uL (0-0.2); Basophils % (auto) 0.5 %; Eosinophils # (auto) 0.18 K/uL (0-0.50); Eosinophils % (auto) 2.7 %; Hematocrit (blood only) 37.1 % (42.0-52.0); Hemoglobin 11.8 g/dl (14.0-18.0); Immature Granulocytes # (auto) 0.03 K/uL (0.01-0.20); Immature Granulocytes % (auto) 0.5 %; Lymphocytes # (auto) 0.84 K/uL (1.2-3.4); Lymphocytes % (auto) 12.6 %; Mean Corpuscular Hemoglobin 25.5 pg (25.0-34.0); Mean Corpuscular Hgb Conc 31.8 g/dL (32.0-36.0); Mean Corpuscular Volume 80.3 fL (80.0-100.0); Mean Platelet Volume 9.8 fL (9.4-12.4); Monocytes # (auto) 0.56 K/uL (0.11-0.59); Monocytes % (auto) 8.4 %; Neutrophils # (auto) 5.02 K/uL (1.40-6.50); Neutrophils % (auto) 75.3 %; Platelet Count 200 K/uL (130-400); RDW Coefficient of Variation 16.1 % (11.5-14.5); RDW Standard Deviation 46.8 fL (36.4-46.3); Red Blood Count 4.62 M/uL (4.70-6.10); White Blood Count 6.66 K/ul (4.8-10.8)
--- NOTE | 2022-10-07 14:07 | XRay Report ---
XR chest 1V portable HISTORY: 77 years-old Male Dysrhythmia COMPARISON: 09/24/2022 TECHNIQUE: AP view of the chest FINDINGS: Cardiac silhouette is enlarged. Prior median sternotomy. No pneumothorax. Pulmonary vascular congesti on with interstitial coarsening. Small pleural effusions with mild bibasilar consolidation. IMPRESSION: 1. Cardiomegaly with pulmonary edema. 2. Small pleural effusions with bibasilar consolidation again noted. ACT 112: Negative or not required by law. The above report was generated using voice recognition software. It may contain grammatical, syntax o r spelling errors. Electronically signed by: Edilberto Cruz M.D. 10/07/2022 2:06 PM
[2022-10-07 14:15] LABS: Albumin Globulin Ratio 1.7 (0.9-2); Albumin Level 4.1 gm/dl (3.4-5.0); BUN Creatinine Ratio 16.1 (10-20); Bilirubin,Total 0.6 mg/dl (0.2-1.0); Calcium 9.4 mg/dl (8.6-10.3); Creatinine Clr Calc Pharmacy 81.2 ml/min; Est GFR (African American) 95.8 ml/min; Est GFR (Non-African American) 82.7 ml/min; Globulin 2.4 gm/dl (2.5-4.0); Potassium 3.6 mmol/L (3.5-5.1); Total Protein 6.5 gm/dl (6.0-8.3)
[2022-10-07 14:19] LABS: Troponin I High Sensitivity 11.6 pg/ml (0-20)
[2022-10-07 14:35] LABS: Partial Thromboplastin Ratio 0.9; Partial Thromboplastin Time 25.4 Seconds (21.0-31.0)
[2022-10-07 14:57] LABS: INR 1.2 (0.9-1.1)
[2022-10-07] MEDS ORDERED: METOPROLOL SUCC 50MG EXT REL TAB PO STA (15:03)
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
[2022-10-07] MEDS ORDERED: METOPROLOL SUCC 25MG EXT REL TAB PO STA (15:13)
[2022-10-07] MEDS ORDERED: Heparin IV Adult Wt-Based Standard WITH Bolus Protocol IV STA (17:00)
--- NOTE | 2022-10-07 17:10 | Electrocardiogram Report ---
Test Reason : Blood Pressure : / mmHG Vent. Rate : 086 BPM Atrial Rate : 000 BPM P-R Int : 000 ms QRS Dur : 082 ms QT Int : 390 ms P-R-T Axes : 000 031 018 degrees QTc Int : 466 ms Atrial fibrillation Abnormal ECG When compared with ECG of 24-SEP-2022 10:49, No significant change was found Confirmed by Liborio Sánchez ([id number]) on 10/07/2022 5:09:45 PM Referred By: Confirmed By:Jesus Sánchez
[2022-10-07] MEDS ORDERED: HEPARIN SODIUM/DEXTROSE 25,000 UNITS/500 ML BAG IV SCH (17:15)
[2022-10-07] MEDS ORDERED: HEPARIN SOD (PORCINE) 1000 UNIT/ML IV ONE ×2 (17:15→19:45)
[2022-10-07] MEDS ORDERED: POLYETHYLENE (MIRALAX) 17 GM PACK PO PRN (17:54)
[2022-10-07] MEDS ORDERED: DOCUSATE SODIUM 100 MG CAP PO PRN (17:54)
[2022-10-07] MEDS ORDERED: ALBUTEROL HFA 8 GM INHALER INH PRN (17:54)
[2022-10-07] MEDS ORDERED: ONDANSETRON INJ 2 MG/ML 2 ML VIAL IV PRN (17:54)
[2022-10-07] MEDS ORDERED: ALBUTEROL 0.083% NEBU SOLN 3 ML VIAL INH PRN (17:54)
[2022-10-07] MEDS ORDERED: HEPARIN 25000 UNIT/500 ML D5W IV ONE (20:07)
[2022-10-07] MEDS: WARFARIN SOD 10 MG TAB PO SCH (20:44)
[2022-10-07] MEDS: MONTELUKAST SODIUM 10 MG TABLET PO SCH (21:47)
[2022-10-07] MEDS: cephALEXin 500 MG CAP PO SCH (21:47)
[2022-10-07] MEDS: allopurinoL 100 MG TAB PO SCH (21:49)
[2022-10-07] MEDS: METOPROLOL SUCC 25MG EXT REL TAB PO SCH (21:50)
[2022-10-08 04:38] LABS: Hematocrit (blood only) 32.5 % (42.0-52.0); Hemoglobin 10.2 g/dl (14.0-18.0); Mean Corpuscular Hemoglobin 25.4 pg (25.0-34.0); Mean Corpuscular Hgb Conc 31.4 g/dL (32.0-36.0); Mean Platelet Volume 9.6 fL (9.4-12.4); Platelet Count 189 K/uL (130-400); RDW Coefficient of Variation 15.9 % (11.5-14.5); RDW Standard Deviation 46.8 fL (36.4-46.3); Red Blood Count 4.01 M/uL (4.70-6.10); White Blood Count 7.67 K/ul (4.8-10.8)
[2022-10-08 04:52] LABS: BUN Creatinine Ratio 17.2 (10-20); Calcium 8.9 mg/dl (8.6-10.3); Creatinine Clr Calc Pharmacy 81.8 ml/min; Est GFR (African American) 95.8 ml/min; Est GFR (Non-African American) 82.7 ml/min; Potassium 3.6 mmol/L (3.5-5.1)
[2022-10-08 05:06] LABS: INR 1.3 (0.9-1.1); Partial Thromboplastin Ratio 1.1; Partial Thromboplastin Time 30.2 Seconds (21.0-31.0); Prothrombin Time 14.3 Seconds (9.0-12.0)
[2022-10-08] MEDS: ATORVASTATIN 40 MG TAB PO SCH (08:13)
[2022-10-08] MEDS: allopurinoL 100 MG TAB PO SCH ×2 (08:13→20:35)
[2022-10-08] MEDS: cephALEXin 500 MG CAP PO SCH ×2 (08:14→20:35)
[2022-10-08] MEDS: CETIRIZINE HCL 10 MG TABLET PO SCH (08:14)
[2022-10-08] MEDS: TOCOPHERYL, DL-ALPHA 400 UNITS 180 MG CAP PO SCH (08:14)
[2022-10-08] MEDS: ESCITALOPRAM OXALATE 10 MG TAB PO SCH (08:15)
[2022-10-08] MEDS: FAMOTIDINE 20 MG TAB PO SCH (08:15)
[2022-10-08] MEDS: OMEGA-3 (PURIFIED FISH OIL) 1 GM CAP PO SCH (08:16)
[2022-10-08] MEDS: FINASTERIDE 5 MG TAB PO SCH (08:16)
[2022-10-08] MEDS: FLUTICASONE PROPIONATE NA SPR 16 GM BTL NAE SCH (08:16)
[2022-10-08] MEDS: FLUTICASONE/VILANTEROL 200/25MCG 14 PUFFS/INHALER INH SCH (08:17)
[2022-10-08] MEDS: MAGNESIUM OXIDE 400 MG TAB PO SCH (08:18)
[2022-10-08] MEDS: METOPROLOL SUCC 25MG EXT REL TAB PO SCH ×3 (08:18→20:36)
[2022-10-08] MEDS: FUROSEMIDE 40 MG/4 ML VIAL IV SCH (08:18)
[2022-10-08] MEDS: TAMSULOSIN HCL 0.4 MG CAP PO SCH (08:19)
[2022-10-08] MEDS: MULTIVITAMIN TAB PO SCH (08:19)
[2022-10-08] MEDS: POTASSIUM CHLORIDE 10 MEQ TABCR PO SCH (08:19)
[2022-10-08] MEDS: VITAMIN B COMPLEX TAB PO SCH (08:20)
[2022-10-08] MEDS ORDERED: POTASSIUM CHLORIDE CRTAB 20 MEQ TABCR PO STA (08:30)
--- NOTE | 2022-10-08 08:51 | Cardiology Progress Note ---
Date of Service October 08, 2022 Assessment & Plan (1) Pulmonary edema: (2) CHF (congestive heart failure): (3) Atrial fibrillation with rapid ventricular response: (4) S/P mitral valve replacement with bioprosthetic valve: Plan IMPRESSION: Patient is a 77-year-old male with complex history of longstanding hypertension hypertensive heart disease with diastolic heart failure with past years complications of endocarditis involving mitral valve resulting in mitral valve replacement 07/19/2022 with [place] Epic bioprosthesis. 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 Patient at time of hospital discharge had beta-johnnie discontinued. Diuretics resumed but patient was taking sporadic. Patient presents now with progressive signs of right greater than left congestive heart failure with marked edema weight gain of nearly 20 to 30 pound as well as atrial fibrillation with elevated ventricular response rate PLAN: 1. Acute on chronic diastolic heart failure: Patient will require inpatient management IV diuretics. Continue Kang for strict I&Os. Recent hematuria- agree with urology consult. As noted weight gain of greater than 20 pounds, currently down 1.7 L. Responding well to IV Lasix 40 mg daily- pending response consider increasing to twice daily. Will add Aldactone 12.5 mg daily, Eplerenone is currently non-formulary. 2. Atrial fibrillation with rapid ventricular response: Echocardiogram demonstrated marked left atrial dilatation and likely will remain chronic given the presence of mitral valve prostheses. Ventricular rates remain elevated despite addition of BB therapy, 34 beat run of VT noted on tele. Increase metoprolol succinate to 25 mg three times daily. Anticoagulation is mandated outpatient records reflect warfarin use, last INR subtherapeutic. Continue IV heparin bridge given prosthetic mitral valve and atrial fibrillation as well as past history of DVT/PE 3. Status post valvular endocarditis. Currently on Cephalexin, was discharged from [facility] on Cefadroxil. 4.Medication noncompliance. Note outpatient list and ER records not current. Case discussed with Dr. Ford- will follow. Admission and Anticipated Discharge Date Admission Date: October 07, 2022 Supervising Physician Co-Signing Physician Notes Patient seen and examined, chart and notes reviewed. Evaluation as above. Signs and symptoms of acute on chronic right heart failure has improved. We will continue IV furosemide add aldosterone antagonist. Increase metoprolol succinate for further heart rate control suspect atrial fibrillation will remain chronic. Will need chronic anticoagulation Subjective Patient is a 77-year-old male with complex history of longstanding hypertension hypertensive heart disease with diastolic heart failure with past years complications of endocarditis involving mitral valve resulting in mitral valve replacement 07/19/2022 with [place] Epic bioprosthesis. 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 10/07: Diuresed with IV Lasix, 40 mg daily. Eplerenone added. A-fib with rapid ventricular rates. Metoprolol succinate started at 12.5 mg twice daily. 10/08: Blood work--CBC showing mildly low hemoglobin, INR low at 1.3. Renal function stable. TELE: AFIB with PVCs 110s-130s. 7 beat run of VT at 0414 and 34 beat run of VT at 0417>> Occurred in the setting of a blood draw, patient was asymptomatic. I&O: -1.7 L Weight: 111 kg >> 109 kg Upon entrance into the room patient resting in bed without acute concern. at bedside. Notes slight improvement in his breathing at rest- but continues to have dyspnea with exertion. No chest pain. Leg swelling persists. Wore compression socks over night. Had some hematuria at 0100- heparin was held and hematuria resolved. Urology consulted. Heparin restarted this am. INR remains subtherapeutic. Review of Systems Review of Systems: All systems reviewed & are unremarkable except as noted in HPI & below Physical Exam Constitutional: WD/WN, vitals as above no acute distress Eyes: PERRL, conjunctivae normal, anicteric sclerae Neck: normal visual inspection Respiratory: no labored breathing Auscultation: + diminished lung sounds Cardiovascular: Rate/Rhythm: + tachycardic and + irregularly irregular Hear t Sounds: normal S1, normal S2 and + murmur Vessels: no JVD Extremities: + edema (+3 BLLE pitting edema to knee) Gastrointestinal (Abdomen): normal bowel sounds, soft, nontender, no hepatosplenomegaly Skin: no rashes, warm and dry Psychiatric: A+Ox3, euthymic affect Results & Data Vital Signs (Past 12 Hours) Vital Signs Temp Pulse Pulse Resp BP Pulse Ox O2 Del Method 10/08/22 07:46 36.7 C 122 H 20 136/87 95 Room Air 10/08/22 02:54 36.5 C 84 18 127/87 92 Room Air 10/08/22 00:00 113 H 10/07/22 22:37 36.8 C 100 H 20 126/87 93 Room Air Laboratory Results Cardiac Enzymes 10/07/22 Range/Units 13:25 AST 28 (13-39) U/L Troponin I High Sens 11.6 (0-20) pg/ml Coagulation 10/07/22 10/08/22 Range/Units 13: 04:19 PT 13.0 H 14.3 H (9.0-12.0) Seconds APTT 25.4 30.2 (21.0-31.0) Seconds CBC 10/07/22 10/08/22 Range/Units 13: 04:19 WBC 6.66 7.67 (4.8-10.8) K/ul RBC 4.62 L 4.01 L (4.70-6.10) M/uL Hgb 11.8 L 10.2 L (14.0-18.0) g/dl Hct 37.1 L 32.5 L (42.0-52.0) % Plt Count 200 189 (130-400) K/uL Neut # (Auto) 5.02 (1.40-6.50) K/uL Lymph # (Auto) 0.84 L (1.2-3.4) K/uL [place] # (Auto) 0.56 (0.11-0.59) K/uL Eos # (Auto) 0.18 (0-0.50) K/uL Baso # (Auto) 0.03 (0-0.2) K/uL Comprehensive Metabolic Panel 10/07/22 10/08/22 Range/Units 13:25 04:19 Sodium 141 142 (136-145) mmol/L Potassium 3.6 3.6 (3.5-5.1) mmol/L Chloride 105 106 (98-107) mmol/L Carbon Dioxide 30 29 (21-32) mmol/L BUN 14 15 (6-23) mg/dl Creatinine 0.87 0.87 (0.6-1.4) mg/dl Glucose 98 93 (70-99(Fasting)) mg/dl Calcium 9.4 8.9 (8.6-10.3) mg/dl AST 28 (13-39) U/L ALT 23 (7-52) U/L Alkaline Phosphatase 145 H (34-104) U/L Total Protein 6.5 (6.0-8.3) gm/dl Albumin 4.1 (3.4-5.0) gm/dl Intake and Output 10/07/22 10/08/22 10/08/22 22:59 06:59 14:59 Intake Total 250 / 405 155 / 405 0 / 0 Output Total 1950 / 2150 200 / 2150 Balance -1700 / -1745 -45 / -1745 0 / 0 Intake: IV 155 / 155 0 / 0 Heparin Sodium/Dextrose 25,000 155 / 155 0 / 0 units In 500 ml @ 0 UNITS/HR IV .Q0M [facility] Rx#:[id number] Oral 250 / 250 Output: Urine 850 / 850 Urine Amount (Catheter) 1100 / 1300 200 / 1300 Kang/Indwelling 1100 / 1300 200 / 1300 Other: Other Intake Source sips Weight 111 kg 109.6 kg Weight Measurement Method Standing Scale Standing Scale
[2022-10-08] MEDS ORDERED: NON-FORMULARY MEDICATION (Selenium 50 mcg Tablet) PO SCH (09:00)
[2022-10-08 09:22] LABS: Magnesium 1.8 mg/dl (1.7-2.4)
[2022-10-08] MEDS ORDERED: METOPROLOL SUCC 50MG EXT REL TAB PO STA (09:45)
[2022-10-08] MEDS ORDERED: METOPROLOL SUCC 25MG EXT REL TAB PO STA (09:59)
--- NOTE | 2022-10-08 10:39 | Electrocardiogram Report ---
Test Reason : Blood Pressure : / mmHG Vent. Rate : 111 BPM Atrial Rate : 178 BPM P-R Int : 000 ms QRS Dur : 086 ms QT Int : 366 ms P-R-T Axes : 000 050 004 degrees QTc Int : 497 ms Atrial fibrillation with rapid ventricular response with premature ventricular or aberrantly conducte d complexes Abnormal ECG When compared with ECG of 07-OCT-2022 13:27, No significant change was found Confirmed by Liborio Sánchez ([id number]) on 10/08/2022 10:39:04 AM Referred By: REFERRED SELF Confirmed By:Jesus Sánchez
--- NOTE | 2022-10-08 10:52 | Hospitalist Progress Note ---
Date of Service October 08, 2022 Assessment & Plan (1) Acute decompensated heart failure: (2) Atrial fibrillation with rapid ventricular response: (3) S/P mitral valve replacement with bioprosthetic valve: (4) Aortic stenosis: (5) HTN (hypertension): (6) BPH w urinary obs/LUTS: (7) Asthma: Plan This is a 77yo M with a PMH of recent staph bacteremia with h/o endocarditis s/p bioprosthetic mitral valve replacement at [facility] in [place], paroxysmal A- fib, aortic valve stenosis, hypertension, BPH, history of left hemiparesis, depression, asthma, chronic diastolic heart failure and other medical problems listed below who was sent over from cardiology clinic due to atrial fibrillation w/RVR and decompensated heart failure. Acute diastolic decompensated heart failure Aortic stenosis History of non-compliance with home lasix, weight gain of 20+ lbs Given 40mg IV Lasix in ED, ignacio catheter placed, I&Os, daily weight, low sodium diet Cardiology consulted and also added eplerenone to regimen as well Atrial fibrillation with RVR patient symptomatic Per cardiology, a fib likely to remain chronic given L atrial enlargement on 2D echo 2/2 MV prosthesis Beta johnnie to be resumed cautiously (stopped on [facility] admission due to AV block) - Toprol 12.5mg BID now increased to 25 BID INR subtherapeutic. Pt was given 10mg coumadin on admission and started bridging with IV heparin given prosthetic MV and h/o DVT as well Pt developed hematuria overnight and heparin was put on hold. This morning urine is yellow and clear, heparin restarted. Continue to closely monitor for hematuria. Discussed with RN at the bedside and cardiology. Monitor INR Hematuria -Episode of hematuria overnight, patient on IV heparin. IV heparin stopped and hematuria is now cleared. -Urology consulted as well -IV heparin restarted this morning, continue to closely monitor for hematuria NSVT -Patient w/episode of V. tach while having his blood drawn, per RN asymptomatic -Metoprolol increased to 25 twice daily, discussed with cardiology PA at the bedside S/p mitral valve replacement with bioprosthetic valve 2/2 endocarditis Anticoagulation bridging as above. 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 Cont. Symbicort BID, PRN albuterol inhaler, Singulair DVT Ppx: coumadin with heparin bridge until therapeutic Code status: FULL PCP: Dr. Steve Dispo: PCU Admission and Anticipated Discharge Date Admission Date: October 07, 2022 Subjective Pt seen in follow up of Afib w/ RVR, acute CHF Started on IV heparin on admission as INR subtherapeutic, overnight developed hematuria and IV heparin stopped Pt has Ignacio placed and clear yellow urine in bag, heparin resumed - discussed w/ RN at the bedside and cardiology - closely monitor for hematuria. Urology consult placed Pt also had episode of vtach during the blood draw, per RN asymptomatic. Metoprolol increased. Currently patient is lying in bed, in no acute distress, reports feeling more tired today than yesterday. He is on room air, continues to have some shortness of breath. No chest pain. Reports edema, and reports noncompliance with Lasix at home. Review of Systems Review of Systems: All systems reviewed & are unremarkable except as noted in Subjective Physical Exam Physical Exam: General Appearance:obese M in NAD Head: normocephalic, atraumatic Eyes:normal inspection, PERRL, conjunctivae normal, anicteric sclerae ENT: external ear and nose normal, oropharynx normal Neck: thick neck Respiratory:+ crackles Cardiovascular:tachycardic, irregular, +systolic murmur, 2+ BLE edema, +JVD Chest:+healed sternotomy incision Abdomen/GI: normal bowel sounds, soft, nontender Extremities/Musculoskeletal: moves extremities, + b/l LE edema Neurologic: awake, alert, oriented, answering appropriately, moves extremities, + some L -sided weakness (from CVA) Skin: no rashes, warm/dry Results & Data Results & Data Vital Signs (Past 12 Hours) Vital Signs Temp Pulse Pulse Resp BP Pulse Ox O2 Del Method 10/08/22 08:00 Room Air 10/08/22 07:46 36.7 C 122 H 20 136/87 95 Room Air 10/08/22 02:54 36.5 C 84 18 127/87 92 Room Air 10/08/22 00:00 113 H Laboratory Results 10/08/22 10/08/22 10/08/22 Range/Units 04:19 04:19 04:19 WBC 7.67 (4.8-10.8) K/ul RBC 4.01 L (4.70-6.10) M/uL Hgb 10.2 L (14.0-18.0) g/dl Hct 32.5 L (42.0-52.0) % MCV 81.0 (80.0-100.0) fL MCH 25.4 (25.0-34.0) pg MCHC 31.4 L (32.0-36.0) g/dL RDW Std Deviation 46.8 H (36.4-46.3) fL RDW Coeff of Hanh 15.9 H (11.5-14.5) % Plt Count 189 (130-400) K/uL MPV 9.6 (9.4-12.4) fL Immature Gran % (Auto) % Neut % (Auto) % Lymph % (Auto) % Hughes % (Auto) % Eos % (Auto) % Baso % (Auto) % Neut # (Auto) (1.40-6.50) K/uL Lymph # (Auto) (1.2-3.4) K/uL Hughes # (Auto) (0.11-0.59) K/uL Eos # (Auto) (0-0.50) K/uL Baso # (Auto) (0-0.2) K/uL Immature Gran # (Auto) (0.01-0.20) K/uL PT 14.3 H (9.0-12.0) Seconds INR 1.3 H (0.9-1.1) APTT 30.2 (21.0-31.0) Seconds PTT Ratio 1.1 Sodium 142 (136-145) mmol/L Potassium 3.6 (3.5-5.1) mmol/L Chloride 106 (98-107) mmol/L Carbon Dioxide 29 (21-32) mmol/L Anion Gap 7 (3-11) BUN 15 (6-23) mg/dl Creatinine 0.87 (0.6-1.4) mg/dl Est Cr Clr Drug Dosing 81.8 ml/min Est GFR ( Amer) 95.8 ml/min Est GFR (Non-Af Amer) 82.7 ml/min BUN/Creatinine Ratio 17.2 (10-20) Glucose 93 (70-99(Fasting)) mg/dl Calcium 8.9 (8.6-10.3) mg/dl Magnesium 1.8 (1.7-2.4) mg/dl Total Bilirubin (0.2-1.0) mg/dl AST (13-39) U/L ALT (7-52) U/L Alkaline Phosphatase (34-104) U/L Troponin I High Sens (0-20) pg/ml Total Protein (6.0-8.3) gm/dl Albumin (3.4-5.0) gm/dl Globulin (2.5-4.0) gm/dl Albumin/Globulin Ratio (0.9-2) TSH (0.300-4.500) uIu/ml SARS-CoV-2, RNA, NAAT (NEGATIVE) 10/07/22 10/07/22 10/07/22 Range/Units 13:28 13:25 13:25 WBC (4.8-10.8) K/ul RBC (4.70-6.10) M/uL Hgb (14.0-18.0) g/dl Hct (42.0-52.0) % MCV (80.0-100.0) fL MCH (25.0-34.0) pg MCHC (32.0-36.0) g/dL RDW Std Deviation (36.4-46.3) fL RDW Coeff of Hanh (11.5-14.5) % Plt Count (130-400) K/uL MPV (9.4-12.4) fL Immature Gran % (Auto) % Neut % (Auto) % Lymph % (Auto) % Hughes % (Auto) % Eos % (Auto) % Baso % (Auto) % Neut # (Auto) (1.40-6.50) K/uL Lymph # (Auto) (1.2-3.4) K/uL Hughes # (Auto) (0.11-0.59) K/uL Eos # (Auto) (0-0.50) K/uL Baso # (Auto) (0-0.2) K/uL Immature Gran # (Auto) (0.01-0.20) K/uL PT (9.0-12.0) Seconds INR (0.9-1.1) APTT (21.0-31.0) Seconds PTT Ratio Sodium 141 (136-145) mmol/L Potassium 3.6 (3.5-5.1) mmol/L Chloride 105 (98-107) mmol/L Carbon Dioxide 30 (21-32) mmol/L Anion Gap 6 (3-11) BUN 14 (6-23) mg/dl Creatinine 0.87 (0.6-1.4) mg/dl Est Cr Clr Drug Dosing 81.2 ml/min Est GFR ( Amer) 95.8 ml/min Est GFR (Non-Af Amer) 82.7 ml/min BUN/Creatinine Ratio 16.1 (10-20) Glucose 98 (70-99(Fasting)) mg/dl Calcium 9.4 (8.6-10.3) mg/dl Magnesium 2.0 (1.7-2.4) mg/dl Total Bilirubin 0.6 (0.2-1.0) mg/dl AST 28 (13-39) U/L ALT 23 (7-52) U/L Alkaline Phosphatase 145 H (34-104) U/L Troponin I High Sens 11.6 (0-20) pg/ml Total Protein 6.5 (6.0-8.3) gm/dl Albumin 4.1 (3.4-5.0) gm/dl Globulin 2.4 L (2.5-4.0) gm/dl Albumin/Globulin Ratio 1.7 (0.9-2) TSH 2.595 (0.300-4.500) uIu/ml SARS-CoV-2, RNA, NAAT NEGATIVE (NEGATIVE) 10/07/22 10/07/22 Range/Units 13:25 13:25 WBC 6.66 (4.8-10.8) K/ul RBC 4.62 L (4.70-6.10) M/uL Hgb 11.8 L (14.0-18.0) g/dl Hct 37.1 L (42.0-52.0) % MCV 80.3 (80.0-100.0) fL MCH 25.5 (25.0-34.0) pg MCHC 31.8 L (32.0-36.0) g/dL RDW Std Deviation 46.8 H (36.4-46.3) fL RDW Coeff of Hanh 16.1 H (11.5-14.5) % Plt Count 200 (130-400) K/uL MPV 9.8 (9.4-12.4) fL Immature Gran % (Auto) 0.5 % Neut % (Auto) 75.3 % Lymph % (Auto) 12.6 % Hughes % (Auto) 8.4 % Eos % (Auto) 2.7 % Baso % (Auto) 0.5 % Neut # (Auto) 5.02 (1.40-6.50) K/uL Lymph # (Auto) 0.84 L (1.2-3.4) K/uL Hughes # (Auto) 0.56 (0.11-0.59) K/uL Eos # (Auto) 0.18 (0-0.50) K/uL Baso # (Auto) 0.03 (0-0.2) K/uL Immature Gran # (Auto) 0.03 (0.01-0.20) K/uL PT 13.0 H (9.0-12.0) Seconds INR 1.2 H (0.9-1.1) APTT 25.4 (21.0-31.0) Seconds PTT Ratio 0.9 Sodium (136-145) mmol/L Potassium (3.5-5.1) mmol/L Chloride (98-107) mmol/L Carbon Dioxide (21-32) mmol/L Anion Gap (3-11) BUN (6-23) mg/dl Creatinine (0.6-1.4) mg/dl Est Cr Clr Drug Dosing ml/min Est GFR ( Amer) ml/min Est GFR (Non-Af Amer) ml/min BUN/Creatinine Ratio (10-20) Glucose (70-99(Fasting)) mg/dl Calcium (8.6-10.3) mg/dl Magnesium (1.7-2.4) mg/dl Total Bilirubin (0.2-1.0) mg/dl AST (13-39) U/L ALT (7-52) U/L Alkaline Phosphatase (34-104) U/L Troponin I High Sens (0-20) pg/ml Total Protein (6.0-8.3) gm/dl Albumin (3.4-5.0) gm/dl Globulin (2.5-4.0) gm/dl Albumin/Globulin Ratio (0.9-2) TSH (0.300-4.500) uIu/ml SARS-CoV-2, RNA, NAAT (NEGATIVE) Medications Administered Current Inpatient Medications Acetaminophen (Acetaminophen 325 Mg Tab) 650 mg PO Q4H PRN PRN Reason: Pain or Fever Stop: 11/06/22 17:53 Albuterol (Albuterol 0.083% Nebu Soln 3 Ml Vial) 2.5 mg INH Q6R PRN; Protocol PRN Reason: SHORTNESS OF BREATH/COUGH Stop: 11/06/22 17:53 Albuterol (Albuterol Hfa 8 Gm Inhaler) 1 puffs INH QIDR PRN PRN Reason: sob Stop: 11/06/22 17:53 Allopurinol (Allopurinol 100 Mg Tab) 200 mg PO BID SERA Stop: 11/06/22 20:59 Last Admin: 10/08/22 08:13 Dose: 200 mg Atorvastatin Calcium (Atorvastatin 40 Mg Tab) 40 mg PO DAILY SERA Stop: 11/07/22 08:59 Last Admin: 10/08/22 08:13 Dose: 40 mg Cephalexin HCl (Cephalexin 500 Mg Cap) 500 mg PO BID SERA Stop: 11/06/22 20:59 Last Admin: 10/08/22 08:14 Dose: 500 mg Cetirizine HCl (Cetirizine Hcl 10 Mg Tablet) 10 mg PO QAM SERA Stop: 11/07/22 08:59 Last Admin: 10/08/22 08:14 Dose: 10 mg Docusate Sodium (Docusate Sodium 100 Mg Cap) 100 mg PO BID PRN PRN Reason: Constipation Stop: 11/06/22 17:53 Escitalopram Oxalate (Escitalopram Oxalate 10 Mg Tab) 10 mg PO DAILY SERA Stop: 11/07/22 08:59 Last Admin: 10/08/22 08:15 Dose: 10 mg Famotidine (Famotidine 20 Mg Tab) 20 mg PO DAILY SERA Stop: 11/07/22 08:59 Last Admin: 10/08/22 08:15 Dose: 20 mg Finasteride (Finasteride 5 Mg Tab) 5 mg PO DAILY SERA Stop: 11/07/22 08:59 Last Admin: 10/08/22 08:16 Dose: 5 mg Fish Oil (Lyons-3 (Purified Fish Oil) 1 Gm Cap) 1 gm PO DAILY SERA Stop: 11/07/22 08:59 Last Admin: 10/08/22 08:16 Dose: 1 gm Fluticasone Propionate (Fluticasone Propionate Na Spr 16 Gm Btl) 2 sprays VIC DAILY SERA Stop: 11/07/22 08:59 Last Admin: 10/08/22 08:16 Dose: 2 sprays Fluticasone/Vilanterol (Fluticasone/Vilanterol 200/25mcg 14 Puffs/Inhaler) 1 puffs INH DAILY [facility] Stop: 11/07/22 08:59 Last Admin: 10/08/22 08:17 Dose: 1 puffs Furosemide (Furosemide 40 Mg/4 Ml Vial) 40 mg IV DAILY [facility] Stop: 11/07/22 08:59 Last Admin: 10/08/22 08:18 Dose: 40 mg Heparin Sodium/Dextrose (Heparin Sodium/Dextrose) 25,000 units in 500 mls @ 30 mls/hr IV .[id number] [facility]; Protocol Stop: 11/06/22 17:14 Last Titration: 10/08/22 08:45 Dose: 1,500 units/hr, 30 mls/hr Magnesium Oxide (Magnesium Oxide 400 Mg Tab) 400 mg PO DAILY [facility] Stop: 11/07/22 08:59 Last Admin: 10/08/22 08:18 Dose: 400 mg Metoprolol Succinate (Metoprolol Succ 25mg Ext Rel Tab) 25 mg PO BID [facility] Stop: 11/07/22 20:59 Montelukast Sodium (Montelukast Sodium 10 Mg Tablet) 10 mg PO HS SERA Stop: 11/06/22 20:59 Last Admin: 10/07/22 21:47 Dose: 10 mg Multivitamins (Multivitamin Tab) 1 tab PO DAILY [facility] Stop: 11/07/22 08:59 Last Admin: 10/08/22 08:19 Dose: 1 tab Ondansetron HCl (Ondansetron Inj 2 Mg/Ml 2 Ml Vial) 4 mg IV Q6H PRN PRN Reason: Nausea Stop: 11/06/22 17:53 Polyethylene Glycol (Polyethylene (Miralax) 17 Gm Pack) 17 gm PO DAILY PRN PRN Reason: Constipation Stop: 11/06/22 17:53 Potassium Chloride (Potassium Chloride 10 Meq Tabcr) 10 meq PO DAILY SERA Stop: 11/07/22 08:59 Last Admin: 10/08/22 08:19 Dose: 10 meq Tamsulosin HCl (Tamsulosin Hcl 0.4 Mg Cap) 0.4 mg PO DAILY SERA Stop: 11/07/22 08:59 Last Admin: 10/08/22 08:19 Dose: 0.4 mg Vitamin B Complex (Vitamin B Complex Tab) 1 tab PO DAILY [facility] Stop: 11/07/22 08:59 Last Admin: 10/08/22 08:20 Dose: 1 tab Vitamin E (Tocopheryl, Dl-Alpha 400 Units 180 Mg Cap) 400 units PO DAILY [facility] Stop: 11/07/22 08:59 Last Admin: 10/08/22 08:14 Dose: 400 units Warfarin Sodium (Warfarin Sod 10 Mg Tab) 10 mg PO DAILY@1600 [facility] Stop: 11/06/22 18:14 Last Admin: 10/07/22 20:44 Dose: 10 mg
[2022-10-08] MEDS: SPIRONOLACTONE 12.5 MG TAB PO SCH (12:03)
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
[2022-10-08 15:40] LABS: Partial Thromboplastin Ratio 1.8
[2022-10-08] MEDS: WARFARIN SOD 10 MG TAB PO SCH (15:41)
[2022-10-08 15:48] LABS: Partial Thromboplastin Time 49.6 Seconds (21.0-31.0)
[2022-10-08] MEDS: HEPARIN SODIUM/DEXTROSE 25,000 UNITS/500 ML BAG IV SCH (20:36)
[2022-10-08] MEDS: MONTELUKAST SODIUM 10 MG TABLET PO SCH (20:36)
[2022-10-08] MEDS ORDERED: METOPROLOL SUCC 25MG EXT REL TAB PO SCH (21:00)
[2022-10-08 22:51] LABS: Partial Thromboplastin Ratio 1.7
[2022-10-08 22:58] LABS: Partial Thromboplastin Time 46.8 Seconds (21.0-31.0)
[2022-10-09 07:00] LABS: Hematocrit (blood only) 34.2 % (42.0-52.0); Hemoglobin 10.8 g/dl (14.0-18.0); Mean Corpuscular Hemoglobin 25.4 pg (25.0-34.0); Mean Corpuscular Hgb Conc 31.6 g/dL (32.0-36.0); Mean Corpuscular Volume 80.3 fL (80.0-100.0); Mean Platelet Volume 10.2 fL (9.4-12.4); Platelet Count 206 K/uL (130-400); RDW Coefficient of Variation 16.2 % (11.5-14.5); RDW Standard Deviation 47.5 fL (36.4-46.3); Red Blood Count 4.26 M/uL (4.70-6.10); White Blood Count 8.12 K/ul (4.8-10.8)
[2022-10-09 07:05] LABS: BUN Creatinine Ratio 18.8 (10-20); Calcium 9.3 mg/dl (8.6-10.3); Creatinine Clr Calc Pharmacy 86.5 ml/min; Est GFR (African American) 99.2 ml/min; Est GFR (Non-African American) 85.6 ml/min; Magnesium 1.8 mg/dl (1.7-2.4); Phosphorus 3.7 mg/dl (2.5-4.9); Potassium 3.9 mmol/L (3.5-5.1)
[2022-10-09 07:23] LABS: INR 1.7 (0.9-1.1); Partial Thromboplastin Ratio 2.4; Prothrombin Time 18.2 Seconds (9.0-12.0)
--- NOTE | 2022-10-09 08:58 | Cardiology Progress Note ---
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 Patient at time of hospital discharge had beta-johnnie discontinued. Diuretics resumed but patient was taking sporadic. Patient presented with progressive signs of right greater than left congestive heart failure with marked edema weight gain of nearly 20 to 30 pound as well as atrial fibrillation with elevated ventricular response rate PLAN: 1. Acute on chronic diastolic heart failure: Patient will require inpatient management IV diuretics. Continue Kang for strict I&Os. As noted weight gain of greater than 20 pounds, currently down almost 3 L. Responding well to IV Lasix, Increase Lasix to 40 mg BID starting today. Continue Aldactone 12.5 mg daily, Eplerenone (home med) is currently non-formulary. BMP stable- continue to roland and replete K/mag as needed. 2. Atrial fibrillation with rapid ventricular response: Echocardiogram demonstrated marked left atrial dilatation and likely will remain chronic given the presence of mitral valve prostheses. Ventricular rates improving with beta johnnie titration and IV diuresis. Increase metoprolol succinate to 50 mg twice daily. Anticoagulation is mandated outpatient records reflect warfarin use, last INR subtherapeutic. Continue IV heparin bridge given prosthetic mitral valve and atrial fibrillation as well as past history of DVT/PE. INR currently 1.7 this am. 3. Status post valvular endocarditis. Currently on Cephalexin, was discharged from [facility] on Cefadroxil. 4.Known medication noncompliance at home. Note outpatient list and ER records not current. Case discussed with Dr. Ford- will follow. Admission and Anticipated Discharge Date Admission Date: October 07, 2022 Supervising Physician Co-Signing Physician Notes Patient seen and examined personally. Continues to demonstrate improvement with diuresis but still substantial volume overload. Plan as above increase furosemide to 40 mg IV twice per day increase metoprolol succinate to 50 mg twice per day for further heart rate control. INR approaching therapeutic continue IV heparin until Subjective Patient is a 77-year-old male with complex history of longstanding hypertension hypertensive heart disease with diastolic heart failure with past years complications of endocarditis involving mitral valve resulting in mitral valve replacement 07/19/2022 with [place] Epic bioprosthesis. 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 10/07: Diuresed with IV Lasix, 40 mg daily. Eplerenone added. A-fib with rapid ventricular rates. Metoprolol succinate started at 12.5 mg twice daily. 10/08: Blood work--CBC showing mildly low hemoglobin, INR low at 1.3. Renal function stable. TELE: AFIB with PVCs 110s-130s. 7 beat run of VT at 0414 and 34 beat run of VT at 0417>> Occurred in the setting of a blood draw, patient was asymptomatic. I&O: -1.7 L Weight: 111 kg >> 109 kg Metoprolol succinate increased to 25 mg 3 times daily. Aldactone 12.5 mg daily started. 10/09: Blood work--INR improving, 1.7 this morning. Hemoglobin mildly low but stable. Renal function stable. Potassium within normal limits. Telemetry: Atrial fibrillation 80s to 90s, 4 beat run of VT overnight I&O: -2.9L Weight: 111 kg >> 105.1 kg Upon entrance into the room patient resting in bed without acute concern. at bedside. Notes slight improvement in his breathing at rest- but continues to have dyspnea with exertion and cough. No chest pain. Leg swelling persists. Physical Exam Constitutional: WD/WN, vitals as above no acute distress Eyes: PERRL, conjunctivae normal, anicteric sclerae Neck: normal visual inspection Respiratory: no labored breathing Auscultation: + diminished lung sounds Cardiovascular: Rate/Rhythm: + tachycardic and + irregularly irregular Heart Sounds: normal S1, normal S2 and + murmur Vessels: no JVD Extremities: + edema (+3 BLLE pitting edema to knee) Gastrointestinal (Abdomen): normal bowel sounds, soft, nontender, no hepatosplenomegaly Skin: no rashes, warm and dry Psychiatric: A+Ox3, euthymic affect Results & Data Vital Signs (Past 12 Hours) Vital Signs Temp Pulse Resp BP BP Pulse Ox O2 Del Method 10/09/22 07:22 36.8 C 79 17 112/80 93 Room Air 10/09/22 03:51 36.7 C 100 H 20 113/78 92 Room Air 10/09/22 00:59 96 H 18 91 Room Air 10/08/22 23:52 37.0 C 102 H 18 128/88 92 Room Air Laboratory Results Coagulation 10/08/22 10/08/22 10/09/22 Range/Units 14:34 21:46 06:05 PT 18.2 H (9.0-12.0) Seconds APTT 49.6 H* 46.8 H* 69.0 H* (21.0-31.0) Seconds 10/09/22 Range/Units 06:05 PT (9.0-12.0) Seconds APTT Cancelled (21.0-31.0) Seconds CBC 10/09/22 Range/Units 06:05 WBC 8.12 (4.8-10.8) K/ul RBC 4.26 L (4.70-6.10) M/uL Hgb 10.8 L (14.0-18.0) g/dl Hct 34.2 L (42.0-52.0) % Plt Count 206 (130-400) K/uL Comprehensive Metabolic Panel 10/09/22 Range/Units 06:05 Sodium 139 (136-145) mmol/L Potassium 3.9 (3.5-5.1) mmol/L Chloride 104 (98-107) mmol/L Carbon Dioxide 29 (21-32) mmol/L BUN 15 (6-23) mg/dl Creatinine 0.80 (0.6-1.4) mg/dl Glucose 98 (70-99(Fasting)) mg/dl Calcium 9.3 (8.6-10.3) mg/dl Intake and Output 10/08/22 10/09/22 10/09/22 22:59 06:59 14:59 Intake Total 745 / 1543.5 318.5 / 1543.5 279.0 / 279.0 Output Total 350 / 3027 Balance 745 / -1483.5 -31.5 / -1483.5 279.0 / 279.0 Intake: IV 345 / 423.5 78.5 / 423.5 279.0 / 279.0 Heparin Sodium/Dextrose 25,000 345 / 423.5 78.5 / 423.5 279.0 / 279.0 units In 500 ml @ 1,500 UNITS/ HR 30 mls/hr IV .[id number] [facility] Rx #:[id number] Oral 400 / 1120 240 / 1120 Output: Urine Amount (Catheter) 350 / 3025 Kang/Indwelling 350 / 3025 Other: Other Intake Source Sips Weight 105.1 kg Weight Measurement Method Standing Scale
[2022-10-09] MEDS: allopurinoL 100 MG TAB PO SCH ×2 (09:07→19:42)
[2022-10-09] MEDS: cephALEXin 500 MG CAP PO SCH ×2 (09:07→19:42)
[2022-10-09] MEDS: METOPROLOL SUCC 25MG EXT REL TAB PO SCH (09:07)
[2022-10-09] MEDS: POTASSIUM CHLORIDE 10 MEQ TABCR PO SCH (09:08)
[2022-10-09] MEDS: ESCITALOPRAM OXALATE 10 MG TAB PO SCH (09:08)
[2022-10-09] MEDS: MAGNESIUM OXIDE 400 MG TAB PO SCH (09:08)
[2022-10-09] MEDS: OMEGA-3 (PURIFIED FISH OIL) 1 GM CAP PO SCH (09:08)
[2022-10-09] MEDS: CETIRIZINE HCL 10 MG TABLET PO SCH (09:08)
[2022-10-09] MEDS: MULTIVITAMIN TAB PO SCH (09:08)
[2022-10-09] MEDS: FAMOTIDINE 20 MG TAB PO SCH (09:08)
[2022-10-09] MEDS: ATORVASTATIN 40 MG TAB PO SCH (09:08)
[2022-10-09] MEDS: SPIRONOLACTONE 12.5 MG TAB PO SCH (09:09)
[2022-10-09] MEDS: TOCOPHERYL, DL-ALPHA 400 UNITS 180 MG CAP PO SCH (09:09)
[2022-10-09] MEDS: FLUTICASONE PROPIONATE NA SPR 16 GM BTL NAE SCH (09:09)
[2022-10-09] MEDS: FINASTERIDE 5 MG TAB PO SCH (09:09)
[2022-10-09] MEDS: FLUTICASONE/VILANTEROL 200/25MCG 14 PUFFS/INHALER INH SCH (09:09)
[2022-10-09] MEDS: VITAMIN B COMPLEX TAB PO SCH (09:09)
[2022-10-09] MEDS: TAMSULOSIN HCL 0.4 MG CAP PO SCH (09:09)
[2022-10-09] MEDS: FUROSEMIDE 40 MG/4 ML VIAL IV SCH ×2 (09:10→17:11)
[2022-10-09] MEDS ORDERED: METOPROLOL SUCC 25MG EXT REL TAB PO ONE (11:21)
[2022-10-09] MEDS: HEPARIN SODIUM/DEXTROSE 25,000 UNITS/500 ML BAG IV SCH (14:16)
[2022-10-09 15:37] LABS: Partial Thromboplastin Ratio 2.7
[2022-10-09 15:41] LABS: Partial Thromboplastin Time 75.7 Seconds (21.0-31.0)
[2022-10-09] MEDS: WARFARIN SOD 10 MG TAB PO SCH (17:12)
--- NOTE | 2022-10-09 18:39 | Hospitalist Progress Note ---
Date of Service October 09, 2022 Assessment & Plan (1) Acute decompensated heart failure: (2) Atrial fibrillation with rapid ventricular response: (3) S/P mitral valve replacement with bioprosthetic valve: (4) Aortic stenosis: (5) HTN (hypertension): (6) BPH w urinary obs/LUTS: (7) Asthma: Plan 77yo M with a PMH of recent staph bacteremia with h/o endocarditis s/p bioprosthetic mitral valve replacement [place] [facility], paroxysmal A- fib, aortic valve stenosis, hypertension, BPH, history of left hemiparesis, depression, asthma, chronic diastolic heart failure and other medical problems listed below who was sent over from cardiology clinic due to atrial fibrillation w/RVR and decompensated heart failure. He is being managed for the following: Acute diastolic decompensated heart failure Aortic stenosis History of non-compliance with home lasix, weight gain of 20+ lbs at presentation. I/Os : +3L, Cardio on board, managing diuresis. on lasix and aldactone. Atrial fibrillation with RVR patient symptomatic, rate better lately still in 90s. Per cardiology, a fib likely to remain chronic given L atrial enlargement on 2D echo 2/2 MV prosthesis Beta johnnie to be resumed cautiously (stopped on [facility] admission due to AV block) - Toprol 12.5mg BID now increased to 50 mg BID INR subtherapeutic. Pt was given 10mg coumadin on admission and started bridging with IV heparin given prosthetic MV and h/o DVT as well Monitor INR, continue w/ heparin drip for now. Hematuria -Episode of hematuria overnight while in hosp, patient on IV heparin. IV heparin stopped and hematuria is now cleared. -Urology evaled as well, IV heparin has been started w/ no further hematuria. NSVT -Patient w/episode of V. tach while having his blood drawn, per RN asymptomatic -Metoprolol increased to 50 twice daily per cardio S/p mitral valve replacement with bioprosthetic valve 2/2 endocarditis Anticoagulation bridging as above. 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 Cont. Symbicort BID, PRN albuterol inhaler, Singulair DVT Ppx: coumadin with heparin bridge until therapeutic Code status: FULL PCP: Dr. Steve Dispo: PCU Admission and Anticipated Discharge Date Admission Date: October 07, 2022 Subjective Patient seen and examined at bedside as a follow-up of acute diastolic heart failure, A-fib with RVR. Patient was lying in bed, on room air, reports no new acute event overnight, reports eating okay and moving bowels okay, reports improving shortness of breath but is still with some shortness of breath. Denies any chest pain or belly pain or headache or dizziness. Physical Exam Physical Exam: GENERAL: Alert and oriented x3. NAD, on RA. Obese class II HEENT: No pallor, no icterus. Pupils equal, round and reactive to light. Oral mucosa moist. NECK: No JVD, no neck masses. HEART: S1 and S2 heard. Regular rate and rhythm. + systolic murmur, no gallop. RESPIRATORY SYSTEM: Normal AP diameter. No accessory muscle use. No wheezing, bibasal crackles. ABDOMEN: Soft, bowel sounds present, nontender, no distention. CENTRAL NERVOUS SYSTEM: No facial droop. Speech is clear. Obeys simple com mands. Moves extremities. EXTREMITIES: 2+ BLE edema, no erythema seen. Results & Data Results & Data Vital Signs (Past 12 Hours) Vital Signs Temp Pulse Pulse Resp BP BP Pulse Ox 10/09/22 15:36 95 H 10/09/22 15:04 36.8 C 100 H 17 106/79 92 10/09/22 11:20 36.6 C 92 H 18 124/86 94 10/09/22 08:00 61 10/09/22 07:22 36.8 C 79 17 112/80 93 O2 Del Method 10/09/22 15:36 10/09/22 15:04 Room Air 10/09/22 11:20 Room Air 10/09/22 08:00 10/09/22 07:22 Room Air
[2022-10-09] MEDS: METOPROLOL SUCC 50MG EXT REL TAB PO SCH (19:42)
[2022-10-09] MEDS: MONTELUKAST SODIUM 10 MG TABLET PO SCH (19:42)
[2022-10-09 23:33] LABS: Partial Thromboplastin Ratio 2.5
[2022-10-09 23:43] LABS: Partial Thromboplastin Time 69.3 Seconds (21.0-31.0)
[2022-10-10 06:41] LABS: BUN Creatinine Ratio 18.1 (10-20); Calcium 9.2 mg/dl (8.6-10.3); Creatinine Clr Calc Pharmacy 73.2 ml/min; Est GFR (African American) 89.6 ml/min; Est GFR (Non-African American) 77.3 ml/min; Potassium 3.6 mmol/L (3.5-5.1)
[2022-10-10 06:49] LABS: Partial Thromboplastin Ratio 1.8
[2022-10-10 06:59] LABS: INR 1.9 (0.9-1.1); Prothrombin Time 20.4 Seconds (9.0-12.0)
[2022-10-10] MEDS: ACETAMINOPHEN 325 MG TAB PO PRN (07:04)
[2022-10-10] MEDS ORDERED: POTASSIUM CHLORIDE CRTAB 20 MEQ TABCR PO STA ×2 (07:43→07:44)
--- NOTE | 2022-10-10 08:47 | Cardiology Progress Note ---
Date of Service October 10, 2022 Assessment & Plan (1) Acute on chronic diastolic HF (heart failure): (2) Atrial fibrillation with rapid ventricular response: (3) S/P mitral valve replacement with bioprosthetic valve: Plan IMPRESSION: Patient is a 77-year-old male with complex history of longstanding hypertension hypertensive heart disease with diastolic heart failure with past years complications of endocarditis involving mitral valve resulting in mitral valve replacement 07/19/2022 with [place] Epic bioprosthesis. 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 Patient at time of hospital discharge had beta-johnnie discontinued. Diuretics resumed but patient was taking sporadic. Patient presented with progressive signs of right greater than left congestive heart failure with marked edema weight gain of nearly 20 to 30 pound as well as atrial fibrillation with elevated ventricular response rate PLAN: 1. Acute on chronic diastolic heart failure: Patient will require inpatient management IV diuretics. Continue Kang for strict I&Os. As noted weight gain of greater than 20 pounds, currently down almost 4 L. Responding well to IV Lasix, continue increased Lasix, 40 mg twice daily. Potassium low normal, increase Aldactone to 25 mg daily. Eplerenone (home med) is currently [id number] will plan on transitioning to eplerenone at discharge. BMP stable- continue to trend and replete K/mag as needed. 2. Atrial fibrillation with rapid ventricular response: Echocardiogram demonstrated marked left atrial dilatation and likely will remain chronic given the presence of mitral valve prostheses. Ventricular rates improving with beta johnnie titration and IV diuresis. Continue metoprolol succinate to 50 mg twice daily. Anticoagulation is mandated outpatient records reflect warfarin use, last INR subtherapeutic. Continue IV heparin bridge given prosthetic mitral valve and atrial fibrillation as well as past history of DVT/PE. INR currently 1.9 this am. 3. Status post valvular endocarditis. Currently on Cephalexin, was discharged from [facility] on Cefadroxil. 4.Known medication noncompliance at home. Note outpatient list and ER records not current. Case discussed with Dr. Ford- sabina follow. Admission and Anticipated Discharge Date Admission Date: October 07, 2022 Supervising Physician Co-Signing Physician Notes Patient seen and examined personally. Continues to demonstrate improvement with diuresis but still substantial volume overload. Moderate leg edema. Heart rate has improved with diuresis and increase in medical therapies. Plan above. Continue furosemide to 40 mg IV twice per day increase metoprolol succinate to 50 mg twice per day for further heart rate control. INR approaching therapeutic continue IV heparin until Subjective Patient is a 77-year-old male with complex history of longstanding hypertension hypertensive heart disease with diastolic heart failure with past years complications of endocarditis involving mitral valve resulting in mitral valve replacement 07/19/2022 with [place] Epic bioprosthesis. 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 10/07: Diuresed with IV Lasix, 40 mg daily. Eplerenone added. A-fib with rapid ventricular rates. Metoprolol succinate started at 12.5 mg twice daily. 10/08: Blood work--CBC showing mildly low hemoglobin, INR low at 1.3. Renal function stable. TELE: AFIB with PVCs 110s-130s. 7 beat run of VT at 0414 and 34 beat run of VT at 0417>> Occurred in the setting of a blood draw, patient was asymptomatic. Metoprolol succinate increased to 25 mg 3 times daily. Aldactone 12.5 mg daily started. 10/09: Blood work--INR improving, 1.7 this morning. Hemoglobin mildly low but stable. Renal function stable. Potassium within normal limits. Telemetry: Atrial fibrillation 80s to 90s, 4 beat run of VT overnight Lasix increased to 40 mg twice daily Metoprolol increased to 50 mg twice daily 10/10: Lab work--INR 1.9, potassium low normal at 3.6. Telemetry: Upon entrance into the room patient resting in bed without acute concern. Continues to have some mild dyspnea. Cough with exertion. No chest pain. Leg edema persists. Physical Exam Constitutional: WD/WN, vitals as above no acute distress Eyes: PERRL, conjunctivae normal, anicteric sclerae Neck: normal visual inspection Respiratory: no labored breathing Auscultation: + diminished lung sounds and + rales (bibasilar) Cardiovascular: Rate/Rhythm: regular rate and + irregularly irregular Heart Sounds: normal S1, normal S2 and + murmur Vessels: no JVD Extremities: + edema (+3 BLLE pitting edema to knee) Gastrointestinal (Abdomen): normal bowel sounds, soft, nontender, no hepatosplenomegaly Skin: no rashes, warm and dry Psychiatric: A+Ox3, euthymic affect Results & Data Vital Signs (Past 12 Hours) Vital Signs Temp Pulse Resp BP Pulse Ox O2 Del Method 10/10/22 08:03 36.4 C L 79 18 122/89 98 Room Air 10/10/22 03:30 36.5 C 90 18 104/78 92 Room Air 10/09/22 22:28 36.8 C 95 H 18 121/92 90 Room Air Laboratory Results Coagulation 10/09/22 10/09/22 10/10/22 Range/Units 14:28 21:39 06:05 PT Cancelled APTT 75.7 H* 69.3 H* (21.0-31.0) Seconds 10/10/22 Range/Units 06:05 PT 20.4 H APTT 51.0 H* (21.0-31.0) Seconds CBC 10/10/22 Range/Units 08:55 WBC 9.62 (4.8-10.8) K/ul RBC 4.42 L (4.70-6.10) M/uL Hgb 11.2 L (14.0-18.0) g/dl Hct 35.4 L (42.0-52.0) % Plt Count 205 (130-400) K/uL Comprehensive Metabolic Panel 10/10/22 Range/Units 06:05 Sodium 138 (136-145) mmol/L Potassium 3.6 (3.5-5.1) mmol/L Chloride 101 (98-107) mmol/L Carbon Dioxide 30 (21-32) mmol/L BUN 17 (6-23) mg/dl Creatinine 0.94 (0.6-1.4) mg/dl Glucose 92 (70-99(Fasting)) mg/dl Calcium 9.2 (8.6-10.3) mg/dl Intake and Output 10/09/22 10/10/22 10/10/22 22:59 06:59 14:59 Intake Total 643.966 / 1361.499 296.033 / 1361.499 48.8 / 48.8 Output Total 3000 / 3350 350 / 3350 Balance -2356.034 / -1987.501 -53.967 / -1987.501 48.8 / 48.8 Intake: IV 123.966 / 841.499 296.033 / 841.499 48.8 / 48.8 Heparin Sodium/Dextrose 25,000 123.966 / 841.499 296.033 / 841.499 48.8 / 48.8 units In 500 ml @ 1,200 UNITS/ HR 24 mls/hr IV .[id number] [facility] Rx #:[id number] Oral 520 / 520 Output: Urine Amount (Catheter) 3000 / 3350 350 / 3350 Kang/Indwelling 3000 / 3350 350 / 3350 Other: Other Intake Source Sips Weight 104.1 kg Weight Measurement Method Standing Scale
[2022-10-10] MEDS: HEPARIN SODIUM/DEXTROSE 25,000 UNITS/500 ML BAG IV SCH ×2 (08:54)
[2022-10-10] MEDS: FLUTICASONE PROPIONATE NA SPR 16 GM BTL NAE SCH (08:57)
[2022-10-10] MEDS: FLUTICASONE/VILANTEROL 200/25MCG 14 PUFFS/INHALER INH SCH (08:57)
[2022-10-10] MEDS: POTASSIUM CHLORIDE 10 MEQ TABCR PO SCH (08:57)
[2022-10-10] MEDS: FUROSEMIDE 40 MG/4 ML VIAL IV SCH ×2 (08:57→17:38)
[2022-10-10] MEDS: cephALEXin 500 MG CAP PO SCH ×2 (08:58→19:37)
[2022-10-10] MEDS: allopurinoL 100 MG TAB PO SCH ×2 (08:58→19:37)
[2022-10-10] MEDS: FINASTERIDE 5 MG TAB PO SCH (08:58)
[2022-10-10] MEDS: ESCITALOPRAM OXALATE 10 MG TAB PO SCH (08:58)
[2022-10-10] MEDS: METOPROLOL SUCC 50MG EXT REL TAB PO SCH ×2 (08:58→19:37)
[2022-10-10] MEDS: TOCOPHERYL, DL-ALPHA 400 UNITS 180 MG CAP PO SCH (08:58)
[2022-10-10] MEDS: FAMOTIDINE 20 MG TAB PO SCH (08:59)
[2022-10-10] MEDS: OMEGA-3 (PURIFIED FISH OIL) 1 GM CAP PO SCH (08:59)
[2022-10-10] MEDS: MULTIVITAMIN TAB PO SCH (08:59)
[2022-10-10] MEDS: VITAMIN B COMPLEX TAB PO SCH (08:59)
[2022-10-10] MEDS: CETIRIZINE HCL 10 MG TABLET PO SCH (08:59)
[2022-10-10] MEDS: TAMSULOSIN HCL 0.4 MG CAP PO SCH (08:59)
[2022-10-10] MEDS: ATORVASTATIN 40 MG TAB PO SCH (08:59)
[2022-10-10] MEDS: MAGNESIUM OXIDE 400 MG TAB PO SCH (08:59)
[2022-10-10 09:19] LABS: Hematocrit (blood only) 35.4 % (42.0-52.0); Hemoglobin 11.2 g/dl (14.0-18.0); Mean Corpuscular Hemoglobin 25.3 pg (25.0-34.0); Mean Corpuscular Hgb Conc 31.6 g/dL (32.0-36.0); Mean Corpuscular Volume 80.1 fL (80.0-100.0); Mean Platelet Volume 9.8 fL (9.4-12.4); Platelet Count 205 K/uL (130-400); RDW Standard Deviation 46.7 fL (36.4-46.3); Red Blood Count 4.42 M/uL (4.70-6.10); White Blood Count 9.62 K/ul (4.8-10.8)
[2022-10-10] MEDS: SPIRONOLACTONE 25 MG TAB PO SCH (09:49)
--- NOTE | 2022-10-10 15:53 | Hospitalist Progress Note ---
Date of Service October 10, 2022 Assessment & Plan (1) Acute decompensated heart failure: (2) Atrial fibrillation with rapid ventricular response: (3) S/P mitral valve replacement with bioprosthetic valve: (4) Aortic stenosis: (5) HTN (hypertension): (6) BPH w urinary obs/LUTS: (7) Asthma: Plan 77yo M with a PMH of recent staph bacteremia with h/o endocarditis s/p bioprosthetic mitral valve [place] [facility] [place], paroxysmal A- fib, aortic valve stenosis, hypertension, BPH, history of left hemiparesis, depression, asthma, chronic diastolic heart failure and other medical problems listed below who was sent over from cardiology clinic due to atrial fibrillation w/RVR and decompensated heart failure. He is being managed for the following: Acute diastolic decompensated heart failure Aortic stenosis History of non-compliance with home lasix, weight gain of 20+ lbs at presentation. I/Os : -5L, Cardio on board, managing diuresis. on lasix and aldactone - transition to home eplerenone dose at discharge. Atrial fibrillation with RVR patient symptomatic, rate better lately still in 90s. Per cardiology, a fib likely to remain chronic given L atrial enlargement on 2D echo 2/2 MV prosthesis Beta johnnie to be resumed cautiously (stopped on [facility] [place] due to AV block) - Toprol 12.5mg BID now increased to 50 mg BID INR subtherapeutic. Pt was given 10mg coumadin on admission and started bridging with IV heparin given prosthetic MV and h/o DVT as well Monitor INR, continue w/ heparin drip for now. Hematuria -Episode of hematuria overnight while in hosp, patient on IV heparin. IV heparin stopped and hematuria is now cleared. -Urology evaled as well, IV heparin has been started w/ no further hematuria. NSVT -Patient w/episode of V. tach while having his blood drawn, per RN asymptomatic -Metoprolol increased to 50 twice daily per cardio S/p mitral valve replacement with bioprosthetic valve 2/2 endocarditis Anticoagulation bridging as above. 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 Cont. Symbicort BID, PRN albuterol inhaler, Singulair DVT Ppx: coumadin with heparin bridge until therapeutic Code status: FULL PCP: Dr. Steve Dispo: PCU , PT/OT, CM to assist. Admission and Anticipated Discharge Date Admission Date: October 07, 2022 Subjective Patient seen and examined at bedside as a follow-up of acute diastolic heart failure, A-fib with RVR. Patient was lying in bed, on room air, reports no new acute event overnight, reports eating okay and moving bowels okay, reports improving shortness of breath but is still with some shortness of breath even w/ lying around. Denies any chest pain or belly pain or headache or dizziness. Physical Exam Physical Exam: GENERAL: Alert and oriented x3. NAD, on RA. Obese class II HEENT: No pallor, no icterus. Pupils equal, round and reactive to light. Oral mucosa moist. NECK: No JVD, no neck masses. HEART: S1 and S2 heard. Regular rate and rhythm. + systolic murmur, no gallop. RESPIRATORY SYSTEM: Normal AP diameter. No accessory muscle use. No wheezing, bibasal crackles. ABDOMEN: Soft, bowel sounds present, nontender, no distention. CENTRAL NERVOUS SYSTEM: No facial droop. Speech is clear. Obeys simple commands. Moves extremities. EXTREMITIES: 2+ BLE edema, no erythema seen. Results & Data Results & Data Vital Signs (Past 12 Hours) Vital Signs Temp Pulse Pulse Resp BP Pulse Ox O2 Del Method 10/10/22 12:44 Room Air 10/10/22 08:00 84 10/10/22 12:18 36.4 C L 86 18 96/67 L 93 Room Air 10/10/22 08:03 36.4 C L 79 18 122/89 98 Room Air
[2022-10-10] MEDS: WARFARIN SOD 10 MG TAB PO SCH (17:37)
[2022-10-10] MEDS: MONTELUKAST SODIUM 10 MG TABLET PO SCH (19:37)
[2022-10-11] MEDS: ACETAMINOPHEN 325 MG TAB PO PRN (03:16)
[2022-10-11 04:51] LABS: Basophils # (auto) 0.04 K/uL (0-0.2); Basophils % (auto) 0.5 %; Eosinophils # (auto) 0.32 K/uL (0-0.50); Eosinophils % (auto) 3.7 %; Hematocrit (blood only) 32.3 % (42.0-52.0); Hemoglobin 10.5 g/dl (14.0-18.0); Immature Granulocytes # (auto) 0.03 K/uL (0.01-0.20); Immature Granulocytes % (auto) 0.4 %; Lymphocytes # (auto) 1.28 K/uL (1.2-3.4); Mean Corpuscular Hemoglobin 25.3 pg (25.0-34.0); Mean Corpuscular Hgb Conc 32.5 g/dL (32.0-36.0); Mean Corpuscular Volume 77.8 fL (80.0-100.0); Mean Platelet Volume 9.8 fL (9.4-12.4); Monocytes # (auto) 0.83 K/uL (0.11-0.59); Monocytes % (auto) 9.7 %; Neutrophils # (auto) 6.04 K/uL (1.40-6.50); Neutrophils % (auto) 70.7 %; Platelet Count 194 K/uL (130-400); RDW Coefficient of Variation 16.4 % (11.5-14.5); RDW Standard Deviation 46.3 fL (36.4-46.3); Red Blood Count 4.15 M/uL (4.70-6.10); White Blood Count 8.54 K/ul (4.8-10.8)
[2022-10-11 05:05] LABS: BUN Creatinine Ratio 17.5 (10-20); Calcium 9.2 mg/dl (8.6-10.3); Creatinine Clr Calc Pharmacy 70.9 ml/min; Est GFR (African American) 86.3 ml/min; Est GFR (Non-African American) 74.5 ml/min; Magnesium 1.7 mg/dl (1.7-2.4); Phosphorus 4.1 mg/dl (2.5-4.9); Potassium 3.7 mmol/L (3.5-5.1)
[2022-10-11] MEDS: HEPARIN SODIUM/DEXTROSE 25,000 UNITS/500 ML BAG IV SCH (05:08)
[2022-10-11 05:51] LABS: INR 2.5 (0.9-1.1); Partial Thromboplastin Ratio 2.4; Prothrombin Time 26.3 Seconds (9.0-12.0)
[2022-10-11 06:06] LABS: Partial Thromboplastin Time 68.1 Seconds (21.0-31.0)
--- NOTE | 2022-10-11 08:36 | Cardiology Progress Note ---
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 Patient at time of hospital discharge had beta-johnnie discontinued. Diuretics resumed but patient was taking sporadic. Patient presented with progressive signs of right greater than left congestive heart failure with marked edema weight gain of nearly 20 to 30 pound as well as atrial fibrillation with elevated ventricular response rate PLAN: 1. Acute on chronic diastolic heart failure: Volume status improving- but remains hypervolemic on exam Continue Kang for strict I&Os. As noted weight gain of greater than 20 pounds, currently down almost 6 L. -Responding well to IV Lasix, will give an additional 40 mg of IV Lasix this afternoon. Otherwise continue 40 mg twice daily. -Continue Aldactone to 25 mg daily. Eplerenone (home med) is currently [id number] will plan on transitioning to eplerenone at discharge. -BMP stable- continue to trend and replete K/mag as needed. 2. Atrial fibrillation with rapid ventricular response: Echocardiogram demonstrated marked left atrial dilatation and likely will remain chronic given the presence of mitral valve prostheses. Ventricular rates improving with beta johnnie titration and IV diuresis. Continue metoprolol succinate to 50 mg twice daily. Anticoagulation is mandated outpatient records reflect warfarin use, last therapeutic.INR currently 2.5 this am- Discontinue IV heparin. 3. Status post valvular endocarditis. Currently on Cephalexin. 4.Known medication noncompliance at home. Note outpatient list and ER records not current. 5. Recommend PT eval. Case discussed with Dr. Ford- will follow. Admission and Anticipated Discharge Date Admission Date: October 07, 2022 Supervising Physician Co-Signing Physician Notes Patient seen and personally examined. Still with significant lower extremity edema though volume status appears to be improving. Heart rate much improved and patient now therapeutic with INR Plan: Discontinue IV heparin, additional dose of IV furosemide this afternoon Patient on spironolactone. Note previously on eplerenone as an outpatient due to breast discomfort previous dose 25 mg/day to be switched to on discharge PT OT to begin working with patient Subjective Patient is a 77-year-old male with complex history of longstanding hypertension hypertensive heart disease with diastolic heart failure with past years complications of endocarditis involving mitral valve resulting in mitral valve replacement 07/19/2022 with [place] Epic bioprosthesis. 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 10/07: Diuresed with IV Lasix, 40 mg daily. Eplerenone added. A-fib with rapid ventricular rates. Metoprolol succinate started at 12.5 mg twice daily. 10/08: Blood work--CBC showing mildly low hemoglobin, INR low at 1.3. Renal function stable. TELE: AFIB with PVCs 110s-130s. 7 beat run of VT at 0414 and 34 beat run of VT at 0417>> Occurred in the setting of a blood draw, patient was asymptomatic. Metoprolol succinate increased to 25 mg 3 times daily. Aldactone 12.5 mg daily started. 10/09: Blood work--INR improving, 1.7 this morning. Hemoglobin mildly low but stable. Renal function stable. Potassium within normal limits. Telemetry: Atrial fibrillation 80s to 90s, 4 beat run of VT overnight Lasix increased to 40 mg twice daily Metoprolol increased to 50 mg twice daily 10/10: Lab work--INR 1.9, potassium low normal at 3.6. Telemetry: AFIB 80-90s Continued IV diuresis with 40 mg twice daily. Aldactone increased to 25 mg daily 10/11: Lab work--INR 2.5, potassium 3.7 Telemetry: AFIB 80-90s I&O: -5.7L Weight: 104.2 Kg Upon entrance into the room patient resting in the chair- notes improved breathing sitting out of bed. Has mild MEJIAS with exertion and orthopnea. Lower extremity edema persists. No chest pain or palpitations. Review of Systems Review of Systems: All systems reviewed & are unremarkable except as noted in HPI & below Physical Exam Constitutional: WD/WN, vitals as above no acute distress Eyes: PERRL, conjunctivae normal, anicteric sclerae Neck: normal visual inspection Respiratory: no labored breathing Auscultation: + diminished lung sounds and + rales (bibasilar) Cardiovascular: Rate/Rhythm: regular rate and + irregularly irregular Heart Sounds: normal S1, normal S2 and + murmur Vessels: no JVD Extremities: + edema (+2 BLLE pitting edema to knee) Gastrointestinal (Abdomen): normal bowel sounds, soft, nontender, no hepatosplenomegaly Skin: no rashes, warm and dry Psychiatric: A+Ox3, euthymic affect Results & Data Vital Signs (Past 12 Hours) Vital Signs Temp Pulse Resp BP Pulse Ox O2 Del Method 10/11/22 03:00 36.8 C 98 H 17 118/88 92 Room Air 10/10/22 22:46 36.4 C L 103 H 18 115/86 93 Room Air 10/10/22 20:53 Room Air Laboratory Results Coagulation 10/11/22 Range/Units 04:23 PT 26.3 H (9.0-12.0) Seconds APTT 68.1 H* (21.0-31.0) Seconds CBC 10/11/22 Range/Units 04:23 WBC 8.54 (4.8-10.8) K/ul RBC 4.15 L (4.70-6.10) M/uL Hgb 10.5 L (14.0-18.0) g/dl Hct 32.3 L (42.0-52.0) % Plt Count 194 (130-400) K/uL Neut # (Auto) 6.04 (1.40-6.50) K/uL Lymph # (Auto) 1.28 (1.2-3.4) K/uL [place] # (Auto) 0.83 H (0.11-0.59) K/uL Eos # (Auto) 0.32 (0-0.50) K/uL Baso # (Auto) 0.04 (0-0.2) K/uL Comprehensive Metabolic Panel 10/11/22 Range/Units 04:23 Sodium 138 (136-145) mmol/L Potassium 3.7 (3.5-5.1) mmol/L Chloride 101 (98-107) mmol/L Carbon Dioxide 30 (21-32) mmol/L BUN 17 (6-23) mg/dl Creatinine 0.97 (0.6-1.4) mg/dl Glucose 95 (70-99(Fasting)) mg/dl Calcium 9.2 (8.6-10.3) mg/dl Intake and Output 10/10/22 10/11/22 10/11/22 22:59 06:59 14:59 Intake Total 220 / 978.4 709.6 / 978.4 56.833 / 56.833 Output Total 850 / 1600 750 / 1600 Balance -630 / -621.6 -40.4 / -621.6 56.833 / 56.833 Intake: IV 509.6 / 558.4 56.833 / 56.833 Heparin Sodium/Dextrose 25,000 509.6 / 558.4 56.833 / 56.833 units In 500 ml @ 1,200 UNITS/ HR 24 mls/hr IV .[id number] [facility] Rx #:[id number] Oral 220 / 420 200 / 420 Output: Urine Amount (Catheter) 850 / 1600 750 / 1600 Kang/Indwelling 850 / 1600 750 / 1600 Other: Other Intake Source sips Weight 104.2 kg Weight Measurement Method Standing Scale
[2022-10-11] MEDS: SPIRONOLACTONE 25 MG TAB PO SCH (09:38)
[2022-10-11] MEDS: FINASTERIDE 5 MG TAB PO SCH (09:38)
[2022-10-11] MEDS: METOPROLOL SUCC 50MG EXT REL TAB PO SCH ×2 (09:38→19:32)
[2022-10-11] MEDS: FLUTICASONE/VILANTEROL 200/25MCG 14 PUFFS/INHALER INH SCH (09:38)
[2022-10-11] MEDS: ATORVASTATIN 40 MG TAB PO SCH (09:39)
[2022-10-11] MEDS: OMEGA-3 (PURIFIED FISH OIL) 1 GM CAP PO SCH (09:39)
[2022-10-11] MEDS: ESCITALOPRAM OXALATE 10 MG TAB PO SCH (09:39)
[2022-10-11] MEDS: CETIRIZINE HCL 10 MG TABLET PO SCH (09:39)
[2022-10-11] MEDS: FLUTICASONE PROPIONATE NA SPR 16 GM BTL NAE SCH (09:39)
[2022-10-11] MEDS: VITAMIN B COMPLEX TAB PO SCH (09:39)
[2022-10-11] MEDS: TAMSULOSIN HCL 0.4 MG CAP PO SCH (09:39)
[2022-10-11] MEDS: FAMOTIDINE 20 MG TAB PO SCH (09:40)
[2022-10-11] MEDS: POTASSIUM CHLORIDE 10 MEQ TABCR PO SCH (09:40)
[2022-10-11] MEDS: TOCOPHERYL, DL-ALPHA 400 UNITS 180 MG CAP PO SCH (09:40)
[2022-10-11] MEDS: cephALEXin 500 MG CAP PO SCH ×2 (09:40→19:32)
[2022-10-11] MEDS: allopurinoL 100 MG TAB PO SCH ×2 (09:40→19:32)
[2022-10-11] MEDS: MULTIVITAMIN TAB PO SCH (09:40)
[2022-10-11] MEDS: MAGNESIUM OXIDE 400 MG TAB PO SCH (09:40)
[2022-10-11] MEDS: FUROSEMIDE 40 MG/4 ML VIAL IV SCH ×2 (09:42→18:10)
[2022-10-11] MEDS ORDERED: FUROSEMIDE 40 MG/4 ML VIAL IV ONE (12:00)
[2022-10-11 12:59] LABS: Partial Thromboplastin Ratio 1.2; Partial Thromboplastin Time 32.6 Seconds (21.0-31.0)
[2022-10-11] MEDS: WARFARIN SOD 10 MG TAB PO SCH (16:53)
--- NOTE | 2022-10-11 17:31 | Hospitalist Progress Note ---
Date of Service October 11, 2022 Assessment & Plan (1) Acute decompensated heart failure: (2) Atrial fibrillation with rapid ventricular response: (3) S/P mitral valve replacement with bioprosthetic valve: (4) Aortic stenosis: (5) HTN (hypertension): (6) BPH w urinary obs/LUTS: (7) Asthma: Plan 77yo M with a PMH of recent staph bacteremia with h/o endocarditis s/p bioprosthetic mitral valve replacement at [facility] [place] in June 2022, paroxysmal A- fib, aortic valve stenosis, hypertension, BPH, history of left hemiparesis, depression, asthma, chronic diastolic heart failure and other medical problems listed below who was sent over from cardiology clinic due to atrial fibrillation w/RVR and decompensated heart failure. He is being managed for the following: Acute diastolic decompensated heart failure Aortic stenosis History of non-compliance with home lasix, weight gain of 20+ lbs at presentation. I/Os : -5L, Cardio on board, managing diuresis. on Lasix and Aldactone - transition to home eplerenone dose at discharge. Atrial fibrillation with RVR patient symptomatic, rate better lately still in 90s. Per cardiology, a fib likely to remain chronic given L atrial enlargement on 2D echo 2/2 MV prosthesis Beta johnnie to be resumed cautiously (stopped on [facility] admission due to AV block) - Toprol 12.5mg BID now increased to 50 mg BID INR therapeutic now, discontinued heparin drip. Follow-up with Coumadin clinic on discharge. Hematuria: Resolved NSVT -Patient w/episode of V. tach while having his blood drawn, per RN asymptomatic -Metoprolol increased to 50 twice daily per cardio S/p mitral valve replacement with bioprosthetic valve 2/2 endocarditis Anticoagulation as above. 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 Cont. Symbicort BID, PRN albuterol inhaler, Singulair DVT Ppx: coumadin with heparin bridge until therapeutic Code status: FULL PCP: Dr. Steve Dispo: PCU , PT/OT, CM to assist. Admission and Anticipated Discharge Date Admission Date: October 07, 2022 Subjective Patient seen and examined at bedside as a follow-up of acute diastolic heart failure, A-fib with RVR. Patient was sitting up in chair, patient's at bedside, on room air, reports no new acute event overnight, reports eating okay and moving bowels okay, reports SOB with lying down but feels better with sitting up. Denies any chest pain or belly pain or headache or dizziness. Physical Exam Physical Exam: GENERAL: Alert and oriented x3. NAD, on RA. Obese class II HEENT: No pallor, no icterus. Pupils equal, round and reactive to light. Oral mucosa moist. NECK: No JVD, no neck masses. HEART: S1 and S2 heard. Regular rate and rhythm. + systolic murmur, no g allop. RESPIRATORY SYSTEM: Normal AP diameter. No accessory muscle use. No wheezing, bibasal crackles. ABDOMEN: Soft, bowel sounds present, nontender, no distention. CENTRAL NERVOUS SYSTEM: No facial droop. Speech is clear. Obeys simple commands. Moves extremities. EXTREMITIES: 2+ BLE edema, no erythema seen. Results & Data Results & Data Vital Signs (Past 12 Hours) Vital Signs Temp Pulse Resp BP BP Pulse Ox Pulse Ox 10/11/22 15:42 36.6 C 95 H 20 115/79 93 10/11/22 08:00 10/11/22 12:12 36.6 C 103 H 19 112/75 97 10/11/22 11:58 95 10/11/22 07:47 36.4 C L 86 18 115/82 92 O2 Del Method O2 Flow Rate 10/11/22 15:42 Room Air 10/11/22 08:00 Room Air 10/11/22 12:12 Room Air 10/11/22 11:58 0 10/11/22 07:47 Room Air
[2022-10-11] MEDS: MONTELUKAST SODIUM 10 MG TABLET PO SCH (19:33)
[2022-10-12 05:23] LABS: Basophils # (auto) 0.04 K/uL (0-0.2); Basophils % (auto) 0.6 %; Eosinophils # (auto) 0.35 K/uL (0-0.50); Eosinophils % (auto) 5.1 %; Hematocrit (blood only) 31.9 % (42.0-52.0); Hemoglobin 10.3 g/dl (14.0-18.0); Immature Granulocytes # (auto) 0.03 K/uL (0.01-0.20); Immature Granulocytes % (auto) 0.4 %; Lymphocytes # (auto) 1.28 K/uL (1.2-3.4); Lymphocytes % (auto) 18.8 %; Mean Corpuscular Hemoglobin 25.1 pg (25.0-34.0); Mean Corpuscular Hgb Conc 32.3 g/dL (32.0-36.0); Mean Corpuscular Volume 77.8 fL (80.0-100.0); Mean Platelet Volume 10.1 fL (9.4-12.4); Monocytes # (auto) 0.86 K/uL (0.11-0.59); Monocytes % (auto) 12.6 %; Neutrophils # (auto) 4.25 K/uL (1.40-6.50); Neutrophils % (auto) 62.5 %; Platelet Count 201 K/uL (130-400); RDW Coefficient of Variation 16.1 % (11.5-14.5); RDW Standard Deviation 45.2 fL (36.4-46.3); White Blood Count 6.81 K/ul (4.8-10.8)
[2022-10-12 05:40] LABS: BUN Creatinine Ratio 17.9 (10-20); Calcium 8.9 mg/dl (8.6-10.3); Creatinine Clr Calc Pharmacy 72.5 ml/min; Est GFR (African American) 88.5 ml/min; Est GFR (Non-African American) 76.4 ml/min; Potassium 3.7 mmol/L (3.5-5.1)
[2022-10-12 05:50] LABS: INR 2.3 (0.9-1.1); Prothrombin Time 24.3 Seconds (9.0-12.0)
[2022-10-12] MEDS: allopurinoL 100 MG TAB PO SCH ×2 (08:50→19:27)
[2022-10-12] MEDS: ATORVASTATIN 40 MG TAB PO SCH (08:52)
[2022-10-12] MEDS: cephALEXin 500 MG CAP PO SCH ×2 (08:52→19:27)
[2022-10-12] MEDS: CETIRIZINE HCL 10 MG TABLET PO SCH (08:53)
[2022-10-12] MEDS: TOCOPHERYL, DL-ALPHA 400 UNITS 180 MG CAP PO SCH (08:53)
[2022-10-12] MEDS: ESCITALOPRAM OXALATE 10 MG TAB PO SCH (08:54)
[2022-10-12] MEDS: FAMOTIDINE 20 MG TAB PO SCH (08:55)
[2022-10-12] MEDS: FINASTERIDE 5 MG TAB PO SCH (08:56)
[2022-10-12] MEDS: OMEGA-3 (PURIFIED FISH OIL) 1 GM CAP PO SCH (08:56)
[2022-10-12] MEDS: FLUTICASONE PROPIONATE NA SPR 16 GM BTL NAE SCH (08:56)
[2022-10-12] MEDS: FUROSEMIDE 40 MG/4 ML VIAL IV SCH ×2 (08:59→17:10)
[2022-10-12] MEDS: METOPROLOL SUCC 50MG EXT REL TAB PO SCH ×2 (08:59→19:27)
[2022-10-12] MEDS: MAGNESIUM OXIDE 400 MG TAB PO SCH (08:59)
[2022-10-12] MEDS: POTASSIUM CHLORIDE 10 MEQ TABCR PO SCH (09:00)
[2022-10-12] MEDS: MULTIVITAMIN TAB PO SCH (09:00)
[2022-10-12] MEDS: VITAMIN B COMPLEX TAB PO SCH (09:01)
[2022-10-12] MEDS: SPIRONOLACTONE 25 MG TAB PO SCH (09:01)
[2022-10-12] MEDS: TAMSULOSIN HCL 0.4 MG CAP PO SCH (09:01)
[2022-10-12] MEDS: FLUTICASONE/VILANTEROL 200/25MCG 14 PUFFS/INHALER INH SCH (09:12)
--- NOTE | 2022-10-12 15:43 | Cardiology Progress Note ---
Date of Service October 12, 2022 Assessment & Plan (1) Acute on chronic diastolic HF (heart failure): (2) Atrial fibrillation with rapid ventricular response: (3) S/P mitral valve replacement with bioprosthetic valve: Plan IMPRESSION: Patient is a 77-year-old male with complex history of longstanding hypertension hypertensive heart disease with diastolic heart failure with past years complications of endocarditis involving mitral valve resulting in mitral valve replacement 07/19/[address] [place] Epic bioprosthesis. 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 Patient at time of hospital discharge had beta-johnnie discontinued. Diuretics resumed but patient was taking sporadic. Patient presented with progressive signs of right greater than left congestive heart failure with marked edema weight gain of nearly 20 to 30 pound as well as atrial fibrillation with elevated ventricular response rate PLAN: Continue Kang for strict I&Os. As noted weight gain of greater than 20 pounds, currently down almost 6 L. * Continue furosemide 40 mg twice daily * spironolactone 25 mg daily * metoprolol succinate 50 mg BID * Coumadin 10 mg daily , INR 2.3 today. Admission and Anticipated Discharge Date Admission Date: October 07, 2022 Subjective Patient seen in cardiology follow up. He notes having gone for a walk in the unit this am. Now resting in bed. Still notes LE edema and orthopnea. Telemetry reveals AF in the 90s. A 6 beat run of NSVT was observed on 10/11/22 at 1700. Physical Exam Constitutional: WD/WN, vitals as above no acute distress Eyes: PERRL, conjunctivae normal, anicteric sclerae Neck: normal visual inspection Respiratory: no labored breathing Auscultation: + diminished lung sounds and + rales (bibasilar) Cardiovascular: Rate/Rhythm: regular rate, + tachycardic and + irregularly irregular Heart Sounds: normal S1, normal S2 and + murmur Vessels: no JVD Extremities: + edema (+2 BLLE pitting edema to knee) Gastrointestinal (Abdomen): normal bowel sounds, soft, nontender, no hepatosplenomegaly Skin: no rashes, warm and dry Psychiatric: A+Ox3, euthymic affect Results & Data Vital Signs (Past 12 Hours) Vital Signs Temp Pulse Pulse Resp BP Pulse Ox O2 Del Method 10/12/22 12:11 36.7 C 96 H 18 104/74 91 Room Air 10/12/22 10:52 Room Air 10/12/22 08:00 104 H 10/12/22 08:00 36.9 C 90 20 122/85 91 Room Air 10/12/22 03:48 36.4 C L 107 H 18 108/74 93 Room Air Laboratory Results Coagulation 10/12/22 Range/Units 04:38 PT 24.3 H (9.0-12.0) Seconds CBC 10/12/22 Range/Units 04:38 WBC 6.81 (4.8-10.8) K/ul RBC 4.10 L (4.70-6.10) M/uL Hgb 10.3 L (14.0-18.0) g/dl Hct 31.9 L (42.0-52.0) % Plt Count 201 (130-400) K/uL Neut # (Auto) 4.25 (1.40-6.50) K/uL Lymph # (Auto) 1.28 (1.2-3.4) K/uL [place] # (Auto) 0.86 H (0.11-0.59) K/uL Eos # (Auto) 0.35 (0-0.50) K/uL Baso # (Auto) 0.04 (0-0.2) K/uL Comprehensive Metabolic Panel 10/12/22 Range/Units 04:38 Sodium 138 (136-145) mmol/L Potassium 3.7 (3.5-5.1) mmol/L Chloride 101 (98-107) mmol/L Carbon Dioxide 30 (21-32) mmol/L BUN 17 (6-23) mg/dl Creatinine 0.95 (0.6-1.4) mg/dl Glucose 86 (70-99(Fasting)) mg/dl Calcium 8.9 (8.6-10.3) mg/dl
--- NOTE | 2022-10-12 16:14 | Hospitalist Progress Note ---
Date of Service October 12, 2022 Assessment & Plan (1) Acute decompensated heart failure: (2) Atrial fibrillation with rapid ventricular response: (3) S/P mitral valve replacement with bioprosthetic valve: (4) Aortic stenosis: (5) HTN (hypertension): (6) BPH w urinary obs/LUTS: (7) Asthma: Plan 77yo M with a PMH of recent staph bacteremia with h/o endocarditis s/p bioprosthetic [place] [facility] [place], paroxysmal A- fib, aortic valve stenosis, hypertension, BPH, history of left hemiparesis, depression, asthma, chronic diastolic heart failure and other medical problems listed below who was sent over from cardiology clinic due to atrial fibrillation w/RVR and decompensated heart failure. He is being managed for the following: Acute diastolic decompensated heart failure Aortic stenosis History of non-compliance with home lasix, weight gain of 20+ lbs at presentation. I/Os : -8L, Cardio on board, managing diuresis. on Lasix and Aldactone - transition to home eplerenone dose at discharge. Atrial fibrillation with RVR patient symptomatic, rate better lately still in 90s. Per cardiology, a fib likely to remain chronic given L atrial enlargement on 2D echo 2/2 MV prosthesis Beta johnnie to be resumed cautiously (stopped [place] [facility] [place] due [place] block) - Toprol 12.5mg BID now increased to 50 mg BID INR therapeutic now, discontinued heparin drip. Follow-up with Coumadin clinic on discharge. Hematuria: Resolved NSVT -Patient w/episode of V. tach while having his blood drawn, per RN asymptomatic -Metoprolol increased to 50 twice daily per cardio S/p mitral valve replacement with bioprosthetic valve 2/2 endocarditis Anticoagulation as above. 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 Cont. Symbicort BID, PRN albuterol inhaler, Singulair DVT Ppx: coumadin with heparin bridge until therapeutic Code status: FULL PCP: Dr. Steve Dispo: PCU , PT/OT, CM to assist. Admission and Anticipated Discharge Date Admission Date: October 07, 2022 Subjective Patient seen and examined at bedside as a follow-up of acute diastolic heart failure, A-fib with RVR. Patient was sitting up in chair, patient's at bedside, on room air, reports no new acute event overnight, reports eating okay and moving bowels okay, reports SOB with lying flat but feels better with sitting up. Denies any chest pain or belly pain or headache or dizziness. Reports daily improvement in his sob. Physical Exam Physical Exam: GENERAL: Alert and oriented x3. NAD, on RA. Obese class II HEENT: No pallor, no icterus. Pupils equal, round and reactive to light. Oral mucosa moist. NECK: No JVD, no neck masses. HEART: S1 and S2 heard. Regular rate and rhythm. + systolic murmur, no gallop. RESPIRATORY SYSTEM: Normal AP diameter. No accessory muscle use. No wheezing, bibasal crackles. ABDOMEN: Soft, bowel sounds present, nontender, no distention. CENTRAL NERVOUS SYSTEM: No facial droop. Speech is clear. Obeys simple commands. Moves extremities. EXTREMITIES: 2+ BLE edema, no erythema seen. Results & Data Results & Data Vital Signs (Past 12 Hours) Vital Signs Temp Pulse Pulse Resp BP Pulse Ox O2 Del Method 10/12/22 15:57 104 H 10/12/22 12:11 36.7 C 96 H 18 104/74 91 Room Air 10/12/22 10:52 Room Air 10/12/22 08:00 104 H 10/12/22 08:00 36.9 C 90 20 122/85 91 Room Air
[2022-10-12] MEDS: WARFARIN SOD 10 MG TAB PO SCH (16:22)
[2022-10-12] MEDS: MONTELUKAST SODIUM 10 MG TABLET PO SCH (19:28)
[2022-10-13 05:30] LABS: Basophils # (auto) 0.04 K/uL (0-0.2); Basophils % (auto) 0.4 %; Eosinophils # (auto) 0.26 K/uL (0-0.50); Eosinophils % (auto) 2.9 %; Hematocrit (blood only) 33.2 % (42.0-52.0); Hemoglobin 10.6 g/dl (14.0-18.0); Immature Granulocytes # (auto) 0.03 K/uL (0.01-0.20); Immature Granulocytes % (auto) 0.3 %; Lymphocytes # (auto) 1.34 K/uL (1.2-3.4); Lymphocytes % (auto) 14.9 %; Mean Corpuscular Hemoglobin 25.1 pg (25.0-34.0); Mean Corpuscular Hgb Conc 31.9 g/dL (32.0-36.0); Mean Corpuscular Volume 78.7 fL (80.0-100.0); Mean Platelet Volume 10.4 fL (9.4-12.4); Monocytes # (auto) 1.14 K/uL (0.11-0.59); Monocytes % (auto) 12.7 %; Neutrophils # (auto) 6.18 K/uL (1.40-6.50); Neutrophils % (auto) 68.8 %; Platelet Count 200 K/uL (130-400); RDW Coefficient of Variation 16.2 % (11.5-14.5); RDW Standard Deviation 45.5 fL (36.4-46.3); Red Blood Count 4.22 M/uL (4.70-6.10); White Blood Count 8.99 K/ul (4.8-10.8)
[2022-10-13 05:45] LABS: BUN Creatinine Ratio 21.6 (10-20); Calcium 9.3 mg/dl (8.6-10.3); Creatinine Clr Calc Pharmacy 77.2 ml/min; Est GFR (African American) 95.4 ml/min; Est GFR (Non-African American) 82.3 ml/min; Potassium 3.7 mmol/L (3.5-5.1)
[2022-10-13 05:56] LABS: INR 2.4 (0.9-1.1); Prothrombin Time 24.7 Seconds (9.0-12.0)
[2022-10-13] MEDS: cephALEXin 500 MG CAP PO SCH ×2 (08:33→19:57)
[2022-10-13] MEDS: SPIRONOLACTONE 25 MG TAB PO SCH (08:33)
[2022-10-13] MEDS: ATORVASTATIN 40 MG TAB PO SCH (08:33)
[2022-10-13] MEDS: POTASSIUM CHLORIDE 10 MEQ TABCR PO SCH (08:33)
[2022-10-13] MEDS: FAMOTIDINE 20 MG TAB PO SCH (08:33)
[2022-10-13] MEDS: ESCITALOPRAM OXALATE 10 MG TAB PO SCH (08:34)
[2022-10-13] MEDS: MAGNESIUM OXIDE 400 MG TAB PO SCH (08:34)
[2022-10-13] MEDS: MULTIVITAMIN TAB PO SCH (08:34)
[2022-10-13] MEDS: CETIRIZINE HCL 10 MG TABLET PO SCH (08:34)
[2022-10-13] MEDS: TOCOPHERYL, DL-ALPHA 400 UNITS 180 MG CAP PO SCH (08:34)
[2022-10-13] MEDS: METOPROLOL SUCC 50MG EXT REL TAB PO SCH ×2 (08:34→19:57)
[2022-10-13] MEDS: allopurinoL 100 MG TAB PO SCH ×2 (08:34→19:57)
[2022-10-13] MEDS: FINASTERIDE 5 MG TAB PO SCH (08:34)
[2022-10-13] MEDS: OMEGA-3 (PURIFIED FISH OIL) 1 GM CAP PO SCH (08:34)
[2022-10-13] MEDS: VITAMIN B COMPLEX TAB PO SCH (08:34)
[2022-10-13] MEDS: TAMSULOSIN HCL 0.4 MG CAP PO SCH (08:35)
[2022-10-13] MEDS: FUROSEMIDE 40 MG/4 ML VIAL IV SCH ×2 (08:35→17:20)
[2022-10-13] MEDS: FLUTICASONE PROPIONATE NA SPR 16 GM BTL NAE SCH (08:35)
[2022-10-13] MEDS: FLUTICASONE/VILANTEROL 200/25MCG 14 PUFFS/INHALER INH SCH (08:35)
[2022-10-13] MEDS: WARFARIN SOD 10 MG TAB PO SCH (17:20)
--- NOTE | 2022-10-13 17:22 | Hospitalist Progress Note ---
Date of Service October 13, 2022 Assessment & Plan (1) Acute decompensated heart failure: (2) Atrial fibrillation with rapid ventricular response: (3) S/P mitral valve replacement with bioprosthetic valve: (4) Aortic stenosis: (5) HTN (hypertension): (6) BPH w urinary obs/LUTS: (7) Asthma: Plan 77yo M with a PMH of recent staph bacteremia with h/o endocarditis s/p bioprosthetic mitral valve replacement at [facility] [place] in June 2022, paroxysmal A- fib, aortic valve stenosis, hypertension, BPH, history of left hemiparesis, depression, asthma, chronic diastolic heart failure and other medical problems listed below who was sent over from cardiology clinic due to atrial fibrillation w/RVR and decompensated heart failure. He is being managed for the following: Acute diastolic decompensated heart failure Aortic stenosis History of non-compliance with home lasix, weight gain of 20+ lbs at presentation. I/Os : -9L, Cardio on board, managing diuresis. on Lasix and Aldactone - transition to home eplerenone dose at discharge. Atrial fibrillation with RVR patient symptomatic, rate better lately still in 90s. Per cardiology, a fib likely to remain chronic given L atrial enlargement on 2D echo 2/2 MV prosthesis Beta johnnie to be resumed cautiously (stopped on [facility] admission due to AV block) - Toprol 12.5mg BID now increased to 50 mg BID INR therapeutic now, discontinued heparin drip. Follow-up with Coumadin clinic on discharge. Hematuria: Resolved NSVT -Patient w/episode of V. tach while having his blood drawn, per RN asymptomatic -Metoprolol increased to 50 twice daily per cardio S/p mitral valve replacement with bioprosthetic valve 2/2 endocarditis Anticoagulation as above. 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 Cont. Symbicort BID, PRN albuterol inhaler, Singulair DVT Ppx: coumadin Code status: FULL PCP: Dr. Steve Dispo: PCU , PT/OT, CM to assist. w/ cardio clearance. Admission and Anticipated Discharge Date Admission Date: October 07, 2022 Subjective Patient seen and examined at bedside as a follow-up of acute diastolic heart failure, A-fib with RVR. Patient was sitting up in chair, on room air, reports no new acute event overnight, reports eating okay and moving bowels okay, reports SOB with lying flat -- getting better. Denies any chest pain or belly pain or headache or dizziness. Reports daily improvement in his sob. Physical Exam Physical Exam: GENERAL: Alert and oriented x3. NAD, on RA. Obese class II HEENT: No pallor, no icterus. Pupils equal, round and reactive to light. Oral mucosa moist. NECK: No JVD, no neck masses. HEART: S1 and S2 heard. Regular rate and rhythm. + systolic murmur, no gallop. RESPIRATORY SYSTEM: Normal AP diameter. No accessory muscle use. No wheezing, bibasal crackles. ABDOMEN: Soft, bowel sounds present, nontender, no distention. CENTRAL NERVOUS SYSTEM: No facial droop. Speech is clear. Obeys simple commands. Moves extremities. EXTREMITIES: 2+ BLE edema, no erythema seen. Results & Data Results & Data Vital Signs (Past 12 Hours) Vital Signs Temp Pulse Pulse Resp BP BP Pulse Ox 10/13/22 12:18 37.0 C 93 H 18 103/71 94 10/13/22 08:00 90 10/13/22 07:58 36.8 C 77 16 122/76 96 O2 Del Method 10/13/22 12:18 Room Air 10/13/22 08:00 10/13/22 07:58 Room Air
--- NOTE | 2022-10-13 17:26 | Cardiology Progress Note ---
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 PLAN: * Continue furosemide 40 mg twice daily * spironolactone 25 mg daily * metoprolol succinate 50 mg BID * Coumadin 10 mg daily , INR 2.4 today. Admission and Anticipated Discharge Date Admission Date: October 07, 2022 Subjective Patient seen in cardiology follow-up. He notes feeling generalized improvement. Kang catheter remains in place. He states he walked 4 laps around the unit today. Denies chest discomfort or subjective palpitations. Mentating well. Telemetry reveals rate controlled atrial fibrillation in the range of 80 to 90 bpm. Physical Exam Constitutional: WD/WN, vitals as above no acute distress Eyes: PERRL, conjunctivae normal, anicteric sclerae Neck: normal visual inspection Respiratory: no labored breathing Auscultation: + diminished lung sounds and + rales (bibasilar) Cardiovascular: Rate/Rhythm: regular rate, + tachycardic and + irregularly irregular Heart Sounds: normal S1, normal S2 and + murmur Vessels: no JVD Extremities: + edema (+2 BLLE pitting edema to knee) Gastrointestinal (Abdomen): normal bowel sounds, soft, nontender, no hepatosplenomegaly Skin: no rashes, warm and dry Psychiatric: A+Ox3, euthymic affect Results & Data Vital Signs (Past 12 Hours) Vital Signs Temp Pulse Pulse Resp BP BP Pulse Ox 10/13/22 12:18 37.0 C 93 H 18 103/71 94 10/13/22 08:00 90 10/13/22 07:58 36.8 C 77 16 122/76 96 O2 Del Method 10/13/22 12:18 Room Air 10/13/22 08:00 10/13/22 07:58 Room Air Laboratory Results Coagulation 10/13/22 Range/Units 04:40 PT 24.7 H (9.0-12.0) Seconds INR: 2.4 CBC 10/13/22 Range/Units 04:40 WBC 8.99 (4.8-10.8) K/ul RBC 4.22 L (4.70-6.10) M/uL Hgb 10.6 L (14.0-18.0) g/dl Hct 33.2 L (42.0-52.0) % Plt Count 200 (130-400) K/uL Neut # (Auto) 6.18 (1.40-6.50) K/uL Lymph # (Auto) 1.34 (1.2-3.4) K/uL [place] # (Auto) 1.14 H (0.11-0.59) K/uL Eos # (Auto) 0.26 (0-0.50) K/uL Baso # (Auto) 0.04 (0-0.2) K/uL Comprehensive Metabolic Panel 10/13/22 Range/Units 04:40 Sodium 137 (136-145) mmol/L Potassium 3.7 (3.5-5.1) mmol/L Chloride 100 (98-107) mmol/L Carbon Dioxide 30 (21-32) mmol/L BUN 19 (6-23) mg/dl Creatinine 0.88 (0.6-1.4) mg/dl Glucose 89 (70-99(Fasting)) mg/dl Calcium 9.3 (8.6-10.3) mg/dl Intake and Output 10/13/22 10/13/22 10/13/22 06:59 14:59 22:59 Intake Total 120 / 1000 100 / 100 Output Total 1924 550 / 550 Balance -130 / -925 -450 / -450 Intake: Oral 120 / 1000 100 / 100 Output: Urine Amount (Catheter) 1924 550 / 550 Kang/Indwelling 1924 550 / 550 Other: Weight 101.2 kg Weight Measurement Method Standing Scale
[2022-10-13] MEDS: HEPARIN SODIUM/DEXTROSE 25,000 UNITS/500 ML BAG IV SCH (18:47)
[2022-10-13] MEDS: MONTELUKAST SODIUM 10 MG TABLET PO SCH (19:57)
[2022-10-14 05:47] LABS: INR 2.3 (0.9-1.1); Prothrombin Time 23.8 Seconds (9.0-12.0)
[2022-10-14 06:03] LABS: BUN Creatinine Ratio 24.8 (10-20); Calcium 8.8 mg/dl (8.6-10.3); Creatinine Clr Calc Pharmacy 67.1 ml/min; Est GFR (African American) 82.2 ml/min; Est GFR (Non-African American) 70.9 ml/min; Potassium 3.7 mmol/L (3.5-5.1)
[2022-10-14] MEDS: FAMOTIDINE 20 MG TAB PO SCH (08:15)
[2022-10-14] MEDS: FINASTERIDE 5 MG TAB PO SCH (08:15)
[2022-10-14] MEDS: SPIRONOLACTONE 25 MG TAB PO SCH (08:15)
[2022-10-14] MEDS: TAMSULOSIN HCL 0.4 MG CAP PO SCH (08:15)
[2022-10-14] MEDS: CETIRIZINE HCL 10 MG TABLET PO SCH (08:15)
[2022-10-14] MEDS: MAGNESIUM OXIDE 400 MG TAB PO SCH (08:16)
[2022-10-14] MEDS: FUROSEMIDE 40 MG/4 ML VIAL IV SCH ×2 (08:16→16:16)
[2022-10-14] MEDS: MULTIVITAMIN TAB PO SCH (08:16)
[2022-10-14] MEDS: VITAMIN B COMPLEX TAB PO SCH (08:16)
[2022-10-14] MEDS: TOCOPHERYL, DL-ALPHA 400 UNITS 180 MG CAP PO SCH (08:16)
[2022-10-14] MEDS: ATORVASTATIN 40 MG TAB PO SCH (08:16)
[2022-10-14] MEDS: ESCITALOPRAM OXALATE 10 MG TAB PO SCH (08:16)
[2022-10-14] MEDS: OMEGA-3 (PURIFIED FISH OIL) 1 GM CAP PO SCH (08:16)
[2022-10-14] MEDS: POTASSIUM CHLORIDE 10 MEQ TABCR PO SCH (08:16)
[2022-10-14] MEDS: cephALEXin 500 MG CAP PO SCH ×2 (08:16→19:37)
[2022-10-14] MEDS: allopurinoL 100 MG TAB PO SCH ×2 (08:16→19:37)
[2022-10-14] MEDS: METOPROLOL SUCC 50MG EXT REL TAB PO SCH ×2 (08:16→19:37)
[2022-10-14] MEDS: FLUTICASONE PROPIONATE NA SPR 16 GM BTL NAE SCH (08:17)
[2022-10-14] MEDS: FLUTICASONE/VILANTEROL 200/25MCG 14 PUFFS/INHALER INH SCH (08:17)
--- NOTE | 2022-10-14 11:38 | Cardiology Progress Note ---
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 Patient had been non compliant with his medications, including his diuretic therapy over the last few months. On admission found to have acute on chronic HFpEF with significant volume overload on exam. Also found to have persistent afib with elevated rates. Given severe LA enlargement on echo and s/p mitral valve intervention, ongoing rate control strategy recommended. Metoprolol titrated and HR's improved, now in the 90's Volume status improving with IV diuresis. Improved SOB. Persistent significant edema noted. Continue furosemide 40 mg IV Monitor I+O's. Monitor renal function Daily weight Patient still has ignacio in place. Hematuria resolved. Hbg stable. Would anticipate another 1-2 days of IV diuresis to aid edema/volume status. Continue Coumadin for stroke prophylaxis with afib. INR 2.3 today. Case discussed with Dr. Bueno I spent a total of 30 minutes on the date of service in preparation, delivery, and documentation of the care provided to this patient, excluding any time spent in the performance of separately billed services. Izabela Ghosh PA-C Department of Cardiology, [facility] This chart was completed in part utilizing Speech Voice Recognition Software. Grammatical errors, random word insertions, pronoun errors, and incomplete sentences are an occasional consequence of this system due to software limitations, ambient noise, and hardware issues. Any formal questions or concerns about the content, text, or information contained within the body of this dictation should be directly addressed to the provider for clarification. Admission and Anticipated Discharge Date Admission Date: October 07, 2022 Supervising Physician Co-Signing Physician Notes Supervising Physician Attestation: I have personally performed a history and physical examination on the patient. I agree with the physician general assistant's findings and plan as documented with the following additions. Subjective: Patient feeling well. Still with edema. Ignacio catheter has been removed. Ongoing rate controlled AF noted on telemetry. Exam: 1-2+ R>l LLE edema CV: reg rhythm 05/31 SM Data: INR 2.3 Assessment and Plan: Problem list as noted above. -Ignacio has been removed. -Increase IV furosemide to 60 mg IV BID a 7 am and 1400. -Continue current dose of coumadin. I spent a total of 20 minutes on the date of service in preparation, delivery, and documentation of the care provided to this patient, excluding any time spent in the performance of separately billed services. Rosalio Bueno, DO Subjective Patient resting out of bed in chair. Reports he feels better each day. Ongoing diuresis noted with good outputs. Improved SOB with ambulation. No chest pain. Weight trending down since admission. Denies dizziness or lightheadedness. No orthopnea, PND. No fever, cough, chills. Review of Systems Review of Systems: All systems reviewed & are unremarkable except as noted in HPI & below Physical Exam Constitutional: WD/WN, vitals as above no acute distress Eyes: PERRL, conjunctivae normal, anicteric sclerae Neck: normal visual inspection Respiratory: no labored breathing Auscultation: + diminished lung sounds and + rales (bibasilar) Cardiovascular: Rate/Rhythm: regular rate and + irregularly irregular Heart Sounds: normal S1, normal S2 and + murmur Vessels: no JVD Extremities: + edema (+2 BLLE pitting edema to knee) Gastrointestinal (Abdomen): normal bowel sounds, soft, nontender, no hepatosplenomegaly Skin: no rashes, warm and dry Psychiatric: A+Ox3, euthymic affect Results & Data Vital Signs (Past 12 Hours) Vital Signs Temp Pulse Pulse Resp BP BP Pulse Ox 10/14/22 08:41 36.6 C 98 H 18 103/65 90 10/14/22 07:41 95 H 10/14/22 03:25 36.7 C 87 20 99/68 L 92 O2 Del Method 10/14/22 08:41 Room Air 10/14/22 07:41 10/14/22 03:25 Room Air Laboratory Results Coagulation 10/14/22 Range/Units 04:27 PT 23.8 H (9.0-12.0) Seconds Comprehensive Metabolic Panel 10/14/22 Range/Units 04:27 Sodium 135 L (136-145) mmol/L Potassium 3.7 (3.5-5.1) mmol/L Chloride 99 (98-107) mmol/L Carbon Dioxide 30 (21-32) mmol/L BUN 25 H (6-23) mg/dl Creatinine 1.01 (0.6-1.4) mg/dl Glucose 88 (70-99(Fasting)) mg/dl Calcium 8.8 (8.6-10.3) mg/dl Intake and Output 10/13/22 10/14/22 10/14/22 22:59 06:59 14:59 Intake Total 120 / 370 150 / 370 Output Total 550 / 1350 250 / 1350 675 / 675 Balance -430 / -980 -100 / -980 -675 / -675 Intake: Oral 120 / 370 150 / 370 Output: Urine Amount (Catheter) 550 / 1350 250 / 1350 675 / 675 Ignacio/Indwelling 550 / 1350 250 / 1350 675 / 675 Other: Weight 101.1 kg Weight Measurement Method Built in [facility] Diagnostic Findings Telemetry reviewed: Persistent atrial fibrillation with rates ranging 90-110's. occ PVC Medications Administered Current Inpatient Medications Acetaminophen (Acetaminophen 325 Mg Tab) 650 mg PO Q4H PRN PRN Reason: Pain or Fever Stop: 11/06/22 17:53 Last Admin: 10/11/22 03:16 Dose: 650 mg Albuterol (Albuterol 0.083% Nebu Soln 3 Ml Vial) 2.5 mg INH Q6R PRN; Protocol PRN Reason: SHORTNESS OF BREATH/COUGH Stop: 11/06/22 17:53 Albuterol (Albuterol Hfa 8 Gm Inhaler) 1 puffs INH QIDR PRN PRN Reason: sob Stop: 11/06/22 17:53 Last Admin: 10/09/22 00:59 Dose: 2 puffs Allopurinol (Allopurinol 100 Mg Tab) 200 mg PO BID SERA Stop: 11/06/22 20:59 Last Admin: 10/14/22 08:16 Dose: 200 mg Atorvastatin Calcium (Atorvastatin 40 Mg Tab) 40 mg PO DAILY SERA Stop: 11/07/22 08:59 Last Admin: 10/14/22 08:16 Dose: 40 mg Cephalexin HCl (Cephalexin 500 Mg Cap) 500 mg PO BID ESRA Stop: 11/06/22 20:59 Last Admin: 10/14/22 08:16 Dose: 500 mg Cetirizine HCl (Cetirizine Hcl 10 Mg Tablet) 10 mg PO QAM SERA Stop: 11/07/22 08:59 Last Admin: 10/14/22 08:15 Dose: 10 mg Docusate Sodium (Docusate Sodium 100 Mg Cap) 100 mg PO BID PRN PRN Reason: Constipation Stop: 11/06/22 17:53 Last Admin: 10/10/22 08:57 Dose: 100 mg Escitalopram Oxalate (Escitalopram Oxalate 10 Mg Tab) 10 mg PO DAILY SERA Stop: 11/07/22 08:59 Last Admin: 10/14/22 08:16 Dose: 10 mg Famotidine (Famotidine 20 Mg Tab) 20 mg PO DAILY SERA Stop: 11/07/22 08:59 Last Admin: 10/14/22 08:15 Dose: 20 mg Finasteride (Finasteride 5 Mg Tab) 5 mg PO DAILY SERA Stop: 11/07/22 08:59 Last Admin: 10/14/22 08:15 Dose: 5 mg Fish Oil ([place]ren-3 (Purified Fish Oil) 1 Gm Cap) 1 gm PO DAILY SERA Stop: 11/07/22 08:59 Last Admin: 10/14/22 08:16 Dose: 1 gm Fluticasone Propionate (Fluticasone Propionate Na Spr 16 Gm Btl) 2 sprays VIC DAILY SERA Stop: 11/07/22 08:59 Last Admin: 10/14/22 08:17 Dose: 2 sprays Fluticasone/Vilanterol (Fluticasone/Vilanterol 200/25mcg 14 Puffs/Inhaler) 1 puffs INH DAILY SERA Stop: 11/07/22 08:59 Last Admin: 10/14/22 08:17 Dose: 1 puffs Furosemide (Furosemide 40 Mg/4 Ml Vial) 40 mg IV BID17 SERA Stop: 11/08/22 16:59 Last Admin: 10/14/22 08:16 Dose: 40 mg Magnesium Oxide (Magnesium Oxide 400 Mg Tab) 400 mg PO DAILY SERA Stop: 11/07/22 08:59 Last Admin: 10/14/22 08:16 Dose: 400 mg Metoprolol Succinate (Metoprolol Succ 50mg Ext Rel Tab) 50 mg PO BID SERA Stop: 11/08/22 20:59 Last Admin: 10/14/22 08:16 Dose: 50 mg Montelukast Sodium (Montelukast Sodium 10 Mg Tablet) 10 mg PO HS SERA Stop: 11/06/22 20:59 Last Admin: 10/13/22 19:57 Dose: 10 mg Multivitamins (Multivitamin Tab) 1 tab PO DAILY SERA Stop: 11/07/22 08:59 Last Admin: 10/14/22 08:16 Dose: 1 tab Ondansetron HCl (Ondansetron Inj 2 Mg/Ml 2 Ml Vial) 4 mg IV Q6H PRN PRN Reason: Nausea Stop: 11/06/22 17:53 Polyethylene Glycol (Polyethylene (Miralax) 17 Gm Pack) 17 gm PO DAILY PRN PRN Reason: Constipation Stop: 11/06/22 17:53 Potassium Chloride (Potassium Chloride 10 Meq Tabcr) 10 meq PO DAILY SERA Stop: 11/07/22 08:59 Last Admin: 10/14/22 08:16 Dose: 10 meq Spironolactone (Spironolactone 25 Mg Tab) 25 mg PO DAILY SERA Stop: 11/09/22 08:59 Last Admin: 10/14/22 08:15 Dose: 25 mg Tamsulosin HCl (Tamsulosin Hcl 0.4 Mg Cap) 0.4 mg PO DAILY SERA Stop: 11/07/22 08:59 Last Admin: 10/14/22 08:15 Dose: 0.4 mg Vitamin B Complex (Vitamin B Complex Tab) 1 tab PO DAILY SERA Stop: 11/07/22 08:59 Last Admin: 10/14/22 08:16 Dose: 1 tab Vitamin E (Tocopheryl, Dl-Alpha 400 Units 180 Mg Cap) 400 units PO DAILY SERA Stop: 11/07/22 08:59 Last Admin: 10/14/22 08:16 Dose: 400 units Warfarin Sodium (Warfarin Sod 10 Mg Tab) 10 mg PO DAILY@1600 SERA Stop: 11/06/22 18:14 Last Admin: 10/13/22 17:20 Dose: 10 mg
[2022-10-14] MEDS: WARFARIN SOD 10 MG TAB PO SCH (16:16)
--- NOTE | 2022-10-14 16:55 | Hospitalist Progress Note ---
Date of Service October 14, 2022 Assessment & Plan (1) Acute decompensated heart failure: (2) Atrial fibrillation with rapid ventricular response: (3) S/P mitral valve replacement with bioprosthetic valve: (4) Aortic stenosis: (5) HTN (hypertension): (6) BPH w urinary obs/LUTS: (7) Asthma: Plan 77yo M with a PMH of recent staph bacteremia with h/o endocarditis s/p bioprosthetic mitral valve replacement at [facility] [place] in June 2022, paroxysmal A- fib, aortic valve stenosis, hypertension, BPH, history of left hemiparesis, depression, asthma, chronic diastolic heart failure and other medical problems listed below who was sent over from cardiology clinic due to atrial fibrillation w/RVR and decompensated heart failure. He is being managed for the following: Acute diastolic decompensated heart failure Aortic stenosis History of non-compliance with home lasix, weight gain of 20+ lbs at presentation. I/Os : -9L, Cardio on board, managing diuresis. on IV Lasix and Aldactone - transition to home eplerenone dose at discharge. Atrial fibrillation with RVR patient symptomatic, rate better lately still in 90s. Per cardiology, a fib likely to remain chronic given L atrial enlargement on 2D echo 2/2 MV prosthesis Beta johnnie to be resumed cautiously (stopped on [facility] [place] [place] admission due to AV block) - Toprol 12.5mg BID now increased to 50 mg BID INR therapeutic now, discontinued heparin drip. Follow-up with Coumadin clinic on discharge. Hematuria: Resolved. Kang removed today. NSVT -Patient w/episode of V. tach while having his blood drawn, per RN asymptomatic -Metoprolol increased to 50 twice daily per cardio S/p mitral valve replacement with bioprosthetic valve 2/2 endocarditis Anticoagulation as above. 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 Cont. Symbicort BID, PRN albuterol inhaler, Singulair DVT Ppx: coumadin Code status: FULL PCP: Dr. Evi Dispo: PCU , PT/OT, CM to assist. w/ cardio clearance. Discussed with at bedside. Time spent evaluating patient, direct bedside care, chart review, placing orders, interpretation of diagnostic studies, discussion with consultants, patient, and family members, as well as other required patient management activities is 60 minutes. Please note the above document was generated using voice recognition software. It may contain grammatical, syntax or spelling errors. Any formal questions or concerns about the content, text or information contained within the body of this dictation should be directly addressed to the provider for clarification Admission and Anticipated Discharge Date Admission Date: October 07, 2022 Subjective Patient seen and examined at bedside. He reports improving shortness of breath. He is in room air. Telemetry shows atrial fibrillation with ventricular rate in 90s to 100 Review of Systems Review of Systems: All systems reviewed & are unremarkable except as noted in Subjective Physical Exam Physical Exam: Constitutional: WD/WN, vitals as above, NAD, sitting up in bed, pleasant, conversing easily Respiratory: normal respiratory effort, lungs clear to auscultation, no wheeze, rales, rhonchi. Normal insp/exp effort, no accessory muscle use Cardiovascular: RRR, no murmur, no edema Vessels: no JVD or carotid bruit Chest: normal inspection of chest Abdomen: normal bowel sounds, soft, nontender, no hepatosplenomegaly Musculoskeletal: no cyanosis or clubbing, extremities motor strength 5/5. 2+ pitting edema present. Skin: no rashes, warm and dry normal turgor Neurologic: PERRL, EOMI, accommodation nl, no face palsy, no dysarthria CN's II- XI intact bilaterally and moves all extremities Psychiatric: A+Ox3, euthymic affect Lymphatic: no cervical or axillary lymphadenopathy : deferred Results & Data Results & Data Vital Signs (Past 12 Hours) Vital Signs Temp Pulse Pulse Resp BP BP Pulse Ox 10/14/22 15:00 99 H 10/14/22 14:53 36.8 C 94 H 18 103/71 93 10/14/22 12:58 36.6 C 102 H 19 103/70 92 10/14/22 08:41 36.6 C 98 H 18 103/65 90 10/14/22 07:41 95 H O2 Del Method 10/14/22 15:00 10/14/22 14:53 Room Air 10/14/22 12:58 Room Air 10/14/22 08:41 Room Air 10/14/22 07:41 Laboratory Results Laboratory Results WBC 8.99 K/ul (4.8-10.8) 10/13/22 04:40 RBC 4.22 M/uL (4.70-6.10) L 10/13/22 04:40 Hgb 10.6 g/dl (14.0-18.0) L 10/13/22 04:40 Hct 33.2 % (42.0-52.0) L 10/13/22 04:40 MCV 78.7 fL (80.0-100.0) L 10/13/22 04:40 MCH 25.1 pg (25.0-34.0) 10/13/22 04:40 MCHC 31.9 g/dL (32.0-36.0) L 10/13/22 04:40 RDW Std Deviation 45.5 fL (36.4-46.3) 10/13/22 04:40 RDW Coeff of Hanh 16.2 % (11.5-14.5) H 10/13/22 04:40 Plt Count 200 K/uL (130-400) 10/13/22 04:40 MPV 10.4 fL (9.4-12.4) 10/13/22 04:40 Immature Gran % (Auto) 0.3 % 10/13/22 04:40 Neut % (Auto) 68.8 % 10/13/22 04:40 Lymph % (Auto) 14.9 % 10/13/22 04:40 [place] % (Auto) 12.7 % 10/13/22 04:40 Eos % (Auto) 2.9 % 10/13/22 04:40 Baso % (Auto) 0.4 % 10/13/22 04:40 Neut # (Auto) 6.18 K/uL (1.40-6.50) 10/13/22 04:40 Lymph # (Auto) 1.34 K/uL (1.2-3.4) 10/13/22 04:40 [place] # (Auto) 1.14 K/uL (0.11-0.59) H 10/13/22 04:40 Eos # (Auto) 0.26 K/uL (0-0.50) 10/13/22 04:40 Baso # (Auto) 0.04 K/uL (0-0.2) 10/13/22 04:40 Immature Gran # (Auto) 0.03 K/uL (0.01-0.20) 10/13/22 04:40 PT 23.8 Seconds (9.0-12.0) H 10/14/22 04:27 INR 2.3 (0.9-1.1) H 10/14/22 04:27 APTT 32.6 Seconds (21.0-31.0) H 10/11/22 12:01 PTT Ratio 1.2 10/11/22 12:01 Sodium 135 mmol/L (136-145) L 10/14/22 04:27 Potassium 3.7 mmol/L (3.5-5.1) 10/14/22 04:27 Chloride 99 mmol/L (98-107) 10/14/22 04:27 Carbon Dioxide 30 mmol/L (21-32) 10/14/22 04:27 Anion Gap 6 (3-11) 10/14/22 04:27 BUN 25 mg/dl (6-23) H 10/14/22 04:27 Creatinine 1.01 mg/dl (0.6-1.4) 10/14/22 04:27 Est Cr Clr Drug Dosing 67.1 ml/min 10/14/22 04:27 Est GFR ( Amer) 82.2 ml/min 10/14/22 04:27 Est GFR (Non-Af Amer) 70.9 ml/min 10/14/22 04:27 BUN/Creatinine Ratio 24.8 (10-20) H 10/14/22 04:27 Glucose 88 mg/dl (70-99(Fasting)) 10/14/22 04:27 Calcium 8.8 mg/dl (8.6-10.3) 10/14/22 04:27 Phosphorus 4.1 mg/dl (2.5-4.9) 10/11/22 04:23 Magnesium 1.7 mg/dl (1.7-2.4) 10/11/22 04:23 Total Bilirubin 0.6 mg/dl (0.2-1.0) 10/07/22 13:25 AST 28 U/L (13-39) 10/07/22 13:25 ALT 23 U/L (7-52) 10/07/22 13:25 Alkaline Phosphatase 145 U/L (34-104) H 10/07/22 13:25 Troponin I High Sens 11.6 pg/ml (0-20) 10/07/22 13:25 Total Protein 6.5 gm/dl (6.0-8.3) 10/07/22 13:25 Albumin 4.1 gm/dl (3.4-5.0) 10/07/22 13:25 Globulin 2.4 gm/dl (2.5-4.0) L 10/07/22 13:25 Albumin/Globulin Ratio 1.7 (0.9-2) 10/07/22 13:25 TSH 2.595 uIu/ml (0.300-4.500) 10/07/22 13:25 SARS-CoV-2, RNA, NAAT NEGATIVE (NEGATIVE) 10/07/22 13:28 Impressions Chest X-Ray 10/07/22 13:21 XR chest 1V portable HISTORY: 77 years-old Male Dysrhythmia COMPARISON: 09/24/2022 TECHNIQUE: AP view of the chest FINDINGS: Cardiac silhouette is enlarged. Prior median sternotomy. No pneumothorax. Pulmonary vascular congestion with interstitial coarsening. Small pleural effusions with mild bibasilar consolidation. IMPRESSION: 1. Cardiomegaly with pulmonary edema. 2. Small pleural effusions with bibasilar consolidation again noted. ACT 112: Negative or not required by law. The above report was generated using voice recognition software. It may contain grammatical, syntax or spelling errors. Electronically signed by: Edilberto Cruz M.D. 10/07/2022 2:06 PM
[2022-10-14] MEDS: MONTELUKAST SODIUM 10 MG TABLET PO SCH (19:38)
[2022-10-15 06:35] LABS: Hematocrit (blood only) 32.5 % (42.0-52.0); Hemoglobin 10.3 g/dl (14.0-18.0); Mean Corpuscular Hemoglobin 24.8 pg (25.0-34.0); Mean Corpuscular Hgb Conc 31.7 g/dL (32.0-36.0); Mean Corpuscular Volume 78.1 fL (80.0-100.0); Mean Platelet Volume 9.4 fL (9.4-12.4); Platelet Count 194 K/uL (130-400); RDW Coefficient of Variation 16.1 % (11.5-14.5); RDW Standard Deviation 45.4 fL (36.4-46.3); Red Blood Count 4.16 M/uL (4.70-6.10); White Blood Count 8.15 K/ul (4.8-10.8)
[2022-10-15 06:36] LABS: Basophils # (auto) 0.04 K/uL (0-0.2); Basophils % (auto) 0.5 %; Eosinophils # (auto) 0.43 K/uL (0-0.50); Eosinophils % (auto) 5.3 %; Immature Granulocytes # (auto) 0.02 K/uL (0.01-0.20); Immature Granulocytes % (auto) 0.2 %; Monocytes # (auto) 0.97 K/uL (0.11-0.59); Monocytes % (auto) 11.9 %; Neutrophils # (auto) 5.39 K/uL (1.40-6.50); Neutrophils % (auto) 66.1 %
[2022-10-15 07:03] LABS: Calcium 9.2 mg/dl (8.6-10.3); Creatinine Clr Calc Pharmacy 75.6 ml/min; Est GFR (African American) 94.9 ml/min; Est GFR (Non-African American) 81.9 ml/min; Potassium 3.5 mmol/L (3.5-5.1)
[2022-10-15] MEDS: POTASSIUM CHLORIDE 10 MEQ TABCR PO SCH (07:54)
[2022-10-15] MEDS: TOCOPHERYL, DL-ALPHA 400 UNITS 180 MG CAP PO SCH (07:54)
[2022-10-15] MEDS: MULTIVITAMIN TAB PO SCH (07:54)
[2022-10-15] MEDS: CETIRIZINE HCL 10 MG TABLET PO SCH (07:54)
[2022-10-15] MEDS: VITAMIN B COMPLEX TAB PO SCH (07:54)
[2022-10-15] MEDS: FINASTERIDE 5 MG TAB PO SCH (07:54)
[2022-10-15] MEDS: ATORVASTATIN 40 MG TAB PO SCH (07:54)
[2022-10-15] MEDS: MAGNESIUM OXIDE 400 MG TAB PO SCH (07:54)
[2022-10-15] MEDS: ESCITALOPRAM OXALATE 10 MG TAB PO SCH (07:54)
[2022-10-15] MEDS: METOPROLOL SUCC 50MG EXT REL TAB PO SCH ×2 (07:55→20:03)
[2022-10-15] MEDS: FAMOTIDINE 20 MG TAB PO SCH (07:55)
[2022-10-15] MEDS: OMEGA-3 (PURIFIED FISH OIL) 1 GM CAP PO SCH (07:55)
[2022-10-15] MEDS: SPIRONOLACTONE 25 MG TAB PO SCH (07:55)
[2022-10-15] MEDS: cephALEXin 500 MG CAP PO SCH ×2 (07:55→20:03)
[2022-10-15] MEDS: FLUTICASONE PROPIONATE NA SPR 16 GM BTL NAE SCH (07:55)
[2022-10-15] MEDS: TAMSULOSIN HCL 0.4 MG CAP PO SCH (07:55)
[2022-10-15] MEDS: allopurinoL 100 MG TAB PO SCH ×2 (07:55→20:03)
[2022-10-15] MEDS: FLUTICASONE/VILANTEROL 200/25MCG 14 PUFFS/INHALER INH SCH (07:56)
[2022-10-15] MEDS: FUROSEMIDE 40 MG/4 ML VIAL IV SCH ×2 (07:56→15:40)
--- NOTE | 2022-10-15 11:49 | Cardiology Progress Note ---
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 Patient had been non compliant with his medications, including his diuretic therapy over the last few months. On admission found to have acute on chronic HFpEF with significant volume overload on exam. Also found to have persistent afib with elevated rates. Given severe LA enlargement on echo and s/p mitral valve intervention, ongoing rate control strategy recommended. Metoprolol titrated and HR's improved, now in the 90's Volume status improving with IV diuresis. Furosemide increased to 60 mg BID yesterday and significant outputs overnight Weight down. Unfortunately patient still has significant lower extremity edema. Would continue at least another 24 hours of IV diuretics and then likely transition to oral furosemide with home dose eplerenone. Patient admits he was not taking oral furosemide prior to admission. Monitor I+O's. Monitor renal function Daily weight Continue Coumadin for stroke prophylaxis with afib. Case discussed with Dr. Bueno I spent a total of 30 minutes on the date of service in preparation, delivery, and documentation of the care provided to this patient, excluding any time spent in the performance of separately billed services. Izabela Ghosh PA-C Department of Cardiology, [facility] This chart was completed in part utilizing Speech Voice Recognition Software. Grammatical errors, random word insertions, pronoun errors, and incomplete sentences are an occasional consequence of this system due to software limitations, ambient noise, and hardware issues. Any formal questions or concerns about the content, text, or information contained within the body of this dictation should be directly addressed to the provider for clarification. Admission and Anticipated Discharge Date Admission Date: October 07, 2022 Supervising Physician Co-Signing Physician Notes Supervising Physician Attestation: I have personally performed a history and physical examination on the patient. I agree with the physician senior agricultural assistant's findings and plan as documented with the following additions. Subjective: Patient states breathing is improved. Ongoing lower extremity edema noted. Telemetry reveals rate controlled atrial fibrillation. Exam: Cardiovascular: Irregular rhythm, 1/6 systolic murmur, 2+ bilateral lower extremity edema Data: INR 2.3 Assessment and Plan: Kang catheter removed 10/14/2022. Continue furosemide 60 mg IV twice daily at 7 AM, 1400. INR was 2.3 yesterday 10/14/2022. Continue current dose of Coumadin Rosalio Bueno, DO Subjective Patient ambulating in hallways with . He reports great improvement in his shortness of breath/dyspnea. He continues to have significant LE edema, but improving. Cough improved. Ongoing diuresis noted with frequent urination. No chest pain. Tolerating meds. Review of Systems Review of Systems: All systems reviewed & are unremarkable except as noted in HPI & below Physical Exam Constitutional: WD/WN, vitals as above no acute distress Eyes: PERRL, conjunctivae normal, anicteric sclerae Neck: normal visual inspection Respiratory: no labored breathing Auscultation: + diminished lung sounds Cardiovascular: Rate/Rhythm: regular rate and + irregularly irregular Heart Sounds: normal S1, normal S2 and + murmur Vessels: no JVD Extremities: + edema (+2 BLLE pitting edema around ankle/pretibial) Gastrointestinal (Abdomen): normal bowel sounds, soft, nontender, no hepatosplenomegaly Skin: no rashes, warm and dry Psychiatric: A+Ox3, euthymic affect Results & Data Vital Signs (Past 12 Hours) Vital Signs Temp Pulse Resp BP Pulse Ox O2 Del Method 10/15/22 08:00 Room Air 10/15/22 08:26 36.8 C 98 H 18 119/83 93 Room Air 10/15/22 04:29 36.8 C 94 H 18 109/80 93 Room Air Laboratory Results CBC 10/15/22 Range/Units 06:04 WBC 8.15 (4.8-10.8) K/ul RBC 4.16 L (4.70-6.10) M/uL Hgb 10.3 L (14.0-18.0) g/dl Hct 32.5 L (42.0-52.0) % Plt Count 194 (130-400) K/uL Neut # (Auto) 5.39 (1.40-6.50) K/uL Lymph # (Auto) 1.30 (1.2-3.4) K/uL [place] # (Auto) 0.97 H (0.11-0.59) K/uL Eos # (Auto) 0.43 (0-0.50) K/uL Baso # (Auto) 0.04 (0-0.2) K/uL Comprehensive Metabolic Panel 10/15/22 Range/Units 06:04 Sodium 137 (136-145) mmol/L Potassium 3.5 (3.5-5.1) mmol/L Chloride 100 (98-107) mmol/L Carbon Dioxide 29 (21-32) mmol/L BUN 24 H (6-23) mg/dl Creatinine 0.89 (0.6-1.4) mg/dl Glucose 95 (70-99(Fasting)) mg/dl Calcium 9.2 (8.6-10.3) mg/dl Intake and Output 10/14/22 10/15/22 10/15/22 22:59 06:59 14:59 Intake Total 240 / 1120 300 / 1120 Output Total 325 / 1726 525 / 1726 350 / 350 Balance -85 / -606 -225 / -606 -350 / -350 Intake: Oral 240 / 1120 300 / 1120 Output: Urine 325 / 1050 525 / 1050 350 / 350 Other: # Unmeasured Voids 1 Weight 99.7 kg Weight Measurement Method Standing Scale Diagnostic Findings Telemetry reviewed: Afib with controlled rates ranging 80-100 at rest, 100-110 with exertion. Medications Administered Current Inpatient Medications Acetaminophen (Acetaminophen 325 Mg Tab) 650 mg PO Q4H PRN PRN Reason: Pain or Fever Stop: 11/06/22 17:53 Last Admin: 10/11/22 03:16 Dose: 650 mg Albuterol (Albuterol 0.083% Nebu Soln 3 Ml Vial) 2.5 mg INH Q6R PRN; Protocol PRN Reason: SHORTNESS OF BREATH/COUGH Stop: 11/06/22 17:53 Albuterol (Albuterol Hfa 8 Gm Inhaler) 1 puffs INH QIDR PRN PRN Reason: sob Stop: 11/06/22 17:53 Last Admin: 10/09/22 00:59 Dose: 2 puffs Allopurinol (Allopurinol 100 Mg Tab) 200 mg PO BID SERA Stop: 11/06/22 20:59 Last Admin: 10/15/22 07:55 Dose: 200 mg Atorvastatin Calcium (Atorvastatin 40 Mg Tab) 40 mg PO DAILY SERA Stop: 11/07/22 08:59 Last Admin: 10/15/22 07:54 Dose: 40 mg Cephalexin HCl (Cephalexin 500 Mg Cap) 500 mg PO BID SERA Stop: 11/06/22 20:59 Last Admin: 10/15/22 07:55 Dose: 500 mg Cetirizine HCl (Cetirizine Hcl 10 Mg Tablet) 10 mg PO QAM SERA Stop: 11/07/22 08:59 Last Admin: 10/15/22 07:54 Dose: 10 mg Docusate Sodium (Docusate Sodium 100 Mg Cap) 100 mg PO BID PRN PRN Reason: Constipation Stop: 11/06/22 17:53 Last Admin: 10/10/22 08:57 Dose: 100 mg Escitalopram Oxalate (Escitalopram Oxalate 10 Mg Tab) 10 mg PO DAILY SERA Stop: 11/07/22 08:59 Last Admin: 10/15/22 07:54 Dose: 10 mg Famotidine (Famotidine 20 Mg Tab) 20 mg PO DAILY SERA Stop: 11/07/22 08:59 Last Admin: 10/15/22 07:55 Dose: 20 mg Finasteride (Finasteride 5 Mg Tab) 5 mg PO DAILY SERA Stop: 11/07/22 08:59 Last Admin: 10/15/22 07:54 Dose: 5 mg Fish Oil (Hanna-3 (Purified Fish Oil) 1 Gm Cap) 1 gm PO DAILY SERA Stop: 11/07/22 08:59 Last Admin: 10/15/22 07:55 Dose: 1 gm Fluticasone Propionate (Fluticasone Propionate Na Spr 16 Gm Btl) 2 sprays VIC DAILY SERA Stop: 11/07/22 08:59 Last Admin: 10/15/22 07:55 Dose: 2 sprays Fluticasone/Vilanterol (Fluticasone/Vilanterol 200/25mcg 14 Puffs/Inhaler) 1 puffs INH DAILY SERA Stop: 11/07/22 08:59 Last Admin: 10/15/22 07:56 Dose: 1 puffs Furosemide (Furosemide 40 Mg/4 Ml Vial) 60 mg IV BID17 SERA Stop: 11/13/22 16:59 Last Admin: 10/15/22 07:56 Dose: 60 mg Magnesium Oxide (Magnesium Oxide 400 Mg Tab) 400 mg PO DAILY SERA Stop: 11/07/22 08:59 Last Admin: 10/15/22 07:54 Dose: 400 mg Metoprolol Succinate (Metoprolol Succ 50mg Ext Rel Tab) 50 mg PO BID SERA Stop: 11/08/22 20:59 Last Admin: 10/15/22 07:55 Dose: 50 mg Montelukast Sodium (Montelukast Sodium 10 Mg Tablet) 10 mg PO HS SERA Stop: 11/06/22 20:59 Last Admin: 10/14/22 19:38 Dose: 10 mg Multivitamins (Multivitamin Tab) 1 tab PO DAILY SERA Stop: 11/07/22 08:59 Last Admin: 10/15/22 07:54 Dose: 1 tab Ondansetron HCl (Ondansetron Inj 2 Mg/Ml 2 Ml Vial) 4 mg IV Q6H PRN PRN Reason: Nausea Stop: 11/06/22 17:53 Polyethylene Glycol (Polyethylene (Miralax) 17 Gm Pack) 17 gm PO DAILY PRN PRN Reason: Constipation Stop: 11/06/22 17:53 Potassium Chloride (Potassium Chloride 10 Meq Tabcr) 10 meq PO DAILY SERA Stop: 11/07/22 08:59 Last Admin: 10/15/22 07:54 Dose: 10 meq Spironolactone (Spironolactone 25 Mg Tab) 25 mg PO DAILY SERA Stop: 11/09/22 08:59 Last Admin: 10/15/22 07:55 Dose: 25 mg Tamsulosin HCl (Tamsulosin Hcl 0.4 Mg Cap) 0.4 mg PO DAILY SERA Stop: 11/07/22 08:59 Last Admin: 10/15/22 07:55 Dose: 0.4 mg Vitamin B Complex (Vitamin B Complex Tab) 1 tab PO DAILY [facility] Stop: 11/07/22 08:59 Last Admin: 10/15/22 07:54 Dose: 1 tab Vitamin E (Tocopheryl, Dl-Alpha 400 Units 180 Mg Cap) 400 units PO DAILY SERA Stop: 11/07/22 08:59 Last Admin: 10/15/22 07:54 Dose: 400 units Warfarin Sodium (Warfarin Sod 10 Mg Tab) 10 mg PO DAILY@1600 [facility] Stop: 11/06/22 18:14 Last Admin: 10/14/22 16:16 Dose: 10 mg
--- NOTE | 2022-10-15 15:09 | Hospitalist Progress Note ---
Date of Service October 15, 2022 Assessment & Plan (1) Acute decompensated heart failure: (2) Atrial fibrillation with rapid ventricular response: (3) S/P mitral valve replacement with bioprosthetic valve: (4) Aortic stenosis: (5) HTN (hypertension): (6) BPH w urinary obs/LUTS: (7) Asthma: Plan 77yo M with a PMH of recent staph bacteremia with h/o endocarditis s/p bioprosthetic mitral valve replacement at [facility] [place] in June 2022, paroxysmal A- fib, aortic valve stenosis, hypertension, BPH, history of left hemiparesis, depression, asthma, chronic diastolic heart failure and other medical problems listed below who was sent over from cardiology clinic due to atrial fibrillation w/RVR and decompensated heart failure. He is being managed for the following: Acute diastolic decompensated heart failure Aortic stenosis Patient presented to the hospital with shortness of breath. Chest x-ray on admission reviewed personally; found to have pulmonary edema History of non-compliance with home lasix, weight gain of 20+ lbs at presentation. Discussed with cardiology; recommend to continue diuresis.. on IV Lasix and Aldactone - transition to home eplerenone dose at discharge. Atrial fibrillation with RVR patient symptomatic, rate better lately still in 90s. Per cardiology, a fib likely to remain chronic given L atrial enlargement on 2D echo 2/2 MV prosthesis Beta johnnie to be resumed cautiously (stopped on [facility] admission due to AV block) - Toprol 12.5mg BID now increased to 50 mg BID INR therapeutic now, discontinued heparin drip. Follow-up with Coumadin clinic on discharge. Hematuria: Resolved. It was removed on October 14. NSVT -Patient w/episode of V. tach while having his blood drawn, per RN asymptomatic -Metoprolol increased to 50 twice daily per cardio S/p mitral valve replacement with bioprosthetic valve 2/2 endocarditis Anticoagulation as above. 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 Cont. Symbicort BID, PRN albuterol inhaler, Singulair DVT Ppx: coumadin Code status: FULL PCP: Dr. Steve Dispo: PCU , PT/OT, CM to assist. w/ cardio clearance. Discussed with at bedside. Time spent evaluating patient, direct bedside care, chart review, placing orders, interpretation of diagnostic studies, discussion with consultants, patient, and family members, as well as other required patient management activities is 60 minutes. Please note the above document was generated using voice recognition software. It may contain grammatical, syntax or spelling errors. Any formal questions or concerns about the content, text or information contained within the body of this dictation should be directly addressed to the provider for clarification Admission and Anticipated Discharge Date Admission Date: October 07, 2022 Subjective Patient seen and examined at bedside. He is sitting up on the chair; not in distress. Denies any shortness of breath. Review of Systems Review of Systems: All systems reviewed & are unremarkable except as noted in Subjective Physical Exam Physical Exam: Constitutional: WD/WN, vitals as above, NAD, sitting up in bed, pleasant, conversing easily Respiratory: normal respiratory effort, lungs clear to auscultation, no wheeze, rales, rhonchi. Normal insp/exp effort, no accessory muscle use Cardiovascular: RRR, no murmur, no edema Vessels: no JVD or carotid bruit Chest: normal inspection of chest Abdomen: normal bowel sounds, soft, nontender, no hepatosplenomegaly Musculoskeletal: no cyanosis or clubbing, extremities motor strength 5/5. 2+ pitting edema present. Skin: no rashes, warm and dry normal turgor Neurologic: PERRL, EOMI, accommodation nl, no face palsy, no dysarthria CN's II- XI intact bilaterally and moves all extremities Psychiatric: A+Ox3, euthymic affect Lymphatic: no cervical or axillary lymphadenopathy : deferred Results & Data Results & Data Vital Signs (Past 12 Hours) Vital Signs Temp Pulse Resp BP Pulse Ox O2 Del Method 10/15/22 12:00 36.8 C 86 16 101/71 92 Room Air 10/15/22 08:00 Room Air 10/15/22 08:26 36.8 C 98 H 18 119/83 93 Room Air 10/15/22 04:29 36.8 C 94 H 18 109/80 93 Room Air Laboratory Results Laboratory Results WBC 8.15 K/ul (4.8-10.8) 10/15/22 06:04 RBC 4.16 M/uL (4.70-6.10) L 10/15/22 06:04 Hgb 10.3 g/dl (14.0-18.0) L 10/15/22 06:04 Hct 32.5 % (42.0-52.0) L 10/15/22 06:04 MCV 78.1 fL (80.0-100.0) L 10/15/22 06:04 MCH 24.8 pg (25.0-34.0) L 10/15/22 06:04 MCHC 31.7 g/dL (32.0-36.0) L 10/15/22 06:04 RDW Std Deviation 45.4 fL (36.4-46.3) 10/15/22 06:04 RDW Coeff of Hanh 16.1 % (11.5-14.5) H 10/15/22 06:04 Plt Count 194 K/uL (130-400) 10/15/22 06:04 MPV 9.4 fL (9.4-12.4) 10/15/22 06:04 Immature Gran % (Auto) 0.2 % 10/15/22 06:04 Neut % (Auto) 66.1 % 10/15/22 06:04 Lymph % (Auto) 16.0 % 10/15/22 06:04 [place] % (Auto) 11.9 % 10/15/22 06:04 Eos % (Auto) 5.3 % 10/15/22 06:04 Baso % (Auto) 0.5 % 10/15/22 06:04 Neut # (Auto) 5.39 K/uL (1.40-6.50) 10/15/22 06:04 Lymph # (Auto) 1.30 K/uL (1.2-3.4) 10/15/22 06:04 [place] # (Auto) 0.97 K/uL (0.11-0.59) H 10/15/22 06:04 Eos # (Auto) 0.43 K/uL (0-0.50) 10/15/22 06:04 Baso # (Auto) 0.04 K/uL (0-0.2) 10/15/22 06:04 Immature Gran # (Auto) 0.02 K/uL (0.01-0.20) 10/15/22 06:04 PT 23.8 Seconds (9.0-12.0) H 10/14/22 04:27 INR 2.3 (0.9-1.1) H 10/14/22 04:27 APTT 32.6 Seconds (21.0-31.0) H 10/11/22 12:01 PTT Ratio 1.2 10/11/22 12:01 Sodium 137 mmol/L (136-145) 10/15/22 06:04 Potassium 3.5 mmol/L (3.5-5.1) 10/15/22 06:04 Chloride 100 mmol/L (98-107) 10/15/22 06:04 Carbon Dioxide 29 mmol/L (21-32) 10/15/22 06:04 Anion Gap 8 (3-11) 10/15/22 06:04 BUN 24 mg/dl (6-23) H 10/15/22 06:04 Creatinine 0.89 mg/dl (0.6-1.4) 10/15/22 06:04 Est Cr Clr Drug Dosing 75.6 ml/min 10/15/22 06:04 Est GFR ( Amer) 94.9 ml/min 10/15/22 06:04 Est GFR (Non-Af Amer) 81.9 ml/min 10/15/22 06:04 BUN/Creatinine Ratio 27.0 (10-20) H 10/15/22 06:04 Glucose 95 mg/dl (70-99(Fasting)) 10/15/22 06:04 Calcium 9.2 mg/dl (8.6-10.3) 10/15/22 06:04 Phosphorus 4.1 mg/dl (2.5-4.9) 10/11/22 04:23 Magnesium 1.7 mg/dl (1.7-2.4) 10/11/22 04:23 Total Bilirubin 0.6 mg/dl (0.2-1.0) 10/07/22 13:25 AST 28 U/L (13-39) 10/07/22 13:25 ALT 23 U/L (7-52) 10/07/22 13:25 Alkaline Phosphatase 145 U/L (34-104) H 10/07/22 13:25 Troponin I High Sens 11.6 pg/ml (0-20) 10/07/22 13:25 Total Protein 6.5 gm/dl (6.0-8.3) 10/07/22 13:25 Albumin 4.1 gm/dl (3.4-5.0) 10/07/22 13:25 Globulin 2.4 gm/dl (2.5-4.0) L 10/07/22 13:25 Albumin/Globulin Ratio 1.7 (0.9-2) 10/07/22 13:25 TSH 2.595 uIu/ml (0.300-4.500) 10/07/22 13:25 SARS-CoV-2, RNA, NAAT NEGATIVE (NEGATIVE) 10/07/22 13:28 Impressions Chest X-Ray 10/07/22 13:21 XR chest 1V portable HISTORY: 77 years-old Male Dysrhythmia COMPARISON: 09/24/2022 TECHNIQUE: AP view of the chest FINDINGS: Cardiac silhouette is enlarged. Prior median sternotomy. No pneumothorax. Pulmonary vascular congestion with interstitial coarsening. Small pleural effusions with mild bibasilar consolidation. IMPRESSION: 1. Cardiomegaly with pulmonary edema. 2. Small pleural effusions with bibasilar consolidation again noted. ACT 112: Negative or not required by law. The above report was generated using voice recognition software. It may contain grammatical, syntax or spelling errors. Electronically signed by: Edilberto Cruz M.D. 10/07/2022 2:06 PM
[2022-10-15] MEDS: WARFARIN SOD 10 MG TAB PO SCH (15:41)
[2022-10-15] MEDS: MONTELUKAST SODIUM 10 MG TABLET PO SCH (20:03)
[2022-10-16 07:09] LABS: BUN Creatinine Ratio 26.3 (10-20); Calcium 9.2 mg/dl (8.6-10.3); Creatinine Clr Calc Pharmacy 70.5 ml/min; Est GFR (African American) 88.5 ml/min; Est GFR (Non-African American) 76.4 ml/min; Potassium 3.4 mmol/L (3.5-5.1)
[2022-10-16 07:34] LABS: INR 3.7 (0.9-1.1); Prothrombin Time 37.2 Seconds (9.0-12.0)
[2022-10-16] MEDS: FAMOTIDINE 20 MG TAB PO SCH (09:09)
[2022-10-16] MEDS: POTASSIUM CHLORIDE 10 MEQ TABCR PO SCH (09:09)
[2022-10-16] MEDS: cephALEXin 500 MG CAP PO SCH (09:09)
[2022-10-16] MEDS: METOPROLOL SUCC 50MG EXT REL TAB PO SCH (09:09)
[2022-10-16] MEDS: TOCOPHERYL, DL-ALPHA 400 UNITS 180 MG CAP PO SCH (09:09)
[2022-10-16] MEDS: FINASTERIDE 5 MG TAB PO SCH (09:09)
[2022-10-16] MEDS: MULTIVITAMIN TAB PO SCH (09:09)
[2022-10-16] MEDS: OMEGA-3 (PURIFIED FISH OIL) 1 GM CAP PO SCH (09:09)
[2022-10-16] MEDS: MAGNESIUM OXIDE 400 MG TAB PO SCH (09:10)
[2022-10-16] MEDS: CETIRIZINE HCL 10 MG TABLET PO SCH (09:10)
[2022-10-16] MEDS: FLUTICASONE PROPIONATE NA SPR 16 GM BTL NAE SCH (09:10)
[2022-10-16] MEDS: TAMSULOSIN HCL 0.4 MG CAP PO SCH (09:10)
[2022-10-16] MEDS: ESCITALOPRAM OXALATE 10 MG TAB PO SCH (09:10)
[2022-10-16] MEDS: SPIRONOLACTONE 25 MG TAB PO SCH (09:10)
[2022-10-16] MEDS: ATORVASTATIN 40 MG TAB PO SCH (09:10)
[2022-10-16] MEDS: FLUTICASONE/VILANTEROL 200/25MCG 14 PUFFS/INHALER INH SCH (09:10)
[2022-10-16] MEDS: allopurinoL 100 MG TAB PO SCH (09:10)
[2022-10-16] MEDS: FUROSEMIDE 40 MG/4 ML VIAL IV SCH (09:11)
[2022-10-16] MEDS ORDERED: Nursing to Pharmacy Communication SCH (09:45)
[2022-10-16] MEDS: VITAMIN B COMPLEX TAB PO SCH (11:56)
--- NOTE | 2022-10-16 13:41 | Cardiology Progress Note ---
Date of Service October 16, 2022 Assessment & Plan (1) Acute on chronic diastolic HF (heart failure): (2) Atrial fibrillation with rapid ventricular response: (3) S/P mitral valve replacement with bioprosthetic valve: Plan IMPRESSION/PLAN: -after 1400 dose of furosemide 60 mg, change to torsemide 20 mg daily (rather than [employer] furosemide 40 mg daily). Also discharge on spironolactone 25 mg daily, KCl 10 meq daily. INR 3.7. Hold coumadin today. Resume [employer] dose tomorrow. Admission and Anticipated Discharge Date Admission Date: October 07, 2022 Subjective Patient seen in cardiology follow up. Still with LE edema, however breathing is improved. Telemetry reveals rate controlled AF. Physical Exam Constitutional: WD/WN, vitals as above no acute distress Eyes: PERRL, conjunctivae normal, anicteric sclerae Neck: normal visual inspection Respiratory: no labored breathing Auscultation: + diminished lung sounds and + rales (bibasilar) Cardiovascular: Rate/Rhythm: regular rate, + tachycardic and + irregularly irregular Heart Sounds: normal S1, normal S2 and + murmur Vessels: no JVD Extremities: + edema (1-2+ BLLE pitting edema to mid tibia) Gastrointestinal (Abdomen): normal bowel sounds, soft, nontender, no hepatosplenomegaly Skin: no rashes, warm and dry Psychiatric: A+Ox3, euthymic affect Results & Data Vital Signs (Past 12 Hours) Vital Signs Temp Pulse Pulse Resp BP Pulse Ox O2 Del Method 10/16/22 12:22 36.9 C 94 H 16 105/67 95 Room Air 10/16/22 08:00 Room Air 10/16/22 08:09 36.6 C 90 14 113/78 93 Room Air 10/16/22 03:55 36.7 C 89 18 115/79 94 Room Air Laboratory Results Coagulation 10/16/22 Range/Units 05:51 PT 37.2 H (9.0-12.0) Seconds Comprehensive Metabolic Panel 10/16/22 Range/Units 05:51 Sodium 139 (136-145) mmol/L Potassium 3.4 L (3.5-5.1) mmol/L Chloride 101 (98-107) mmol/L Carbon Dioxide 31 (21-32) mmol/L BUN 25 H (6-23) mg/dl Creatinine 0.95 (0.6-1.4) mg/dl Glucose 92 (70-99(Fasting)) mg/dl Calcium 9.2 (8.6-10.3) mg/dl Intake and Output 10/15/22 10/16/22 10/16/22 22:59 06:59 14:59 Intake Total 150 / 900 200 / 900 Output Total 475 / 2100 950 / 2100 525 / 525 Balance -325 / -1200 -750 / -1200 -525 / -525 Intake: Oral 150 / 900 200 / 900 Output: Urine 475 / 2100 950 / 2100 525 / 525 Other: Other Intake Source sip Weight 98.7 kg Weight Measurement Method Built in [facility]
--- NOTE | 2022-10-16 16:47 | Discharge Summary ---
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 Patient has been reportedly noncompliant with Lasix due to discomfort with frequent urination. Was seen in the ED a few weeks ago due to shortness of breath and was given IV Lasix and discharged home. Reports he is taking Lasix more frequently over the past few days but does endorse weight gain, increased swelling of lower extremities up to groin, shortness of breath with exertion and increased fatigue. Denies any lightheadedness, palpitations, chest pain or near syncope. Unclear on current medication regimen due so many medication changes recently. No fever, chills, headache, nausea, vomiting, abdominal pain, dysuria, diarrhea or constipation. Admission Exam Per Admitting Provider General Appearance:WD/WN, vitals as above, NAD, sitting up in bed, conversational dyspnea Head: normocephalic, atraumatic Eyes:normal inspection, PERRL, conjunctivae normal, anicteric sclerae ENT: external ear and nose normal, oropharynx normal Neck: normal visual inspection, trachea midline, no thyromegaly Respiratory:increased respiratory effort, bibasilar rales, no wheeze or rhonchi. No accessory muscle use Cardiovascular: irregular rate & rhythm, +systolic murmur, normal peripheral pulses, 2-3+ BLE edema, +JVD Chest:+healing sternotomy incision Abdomen/GI: normal bowel sounds, soft, nontender, no hepatosplenomegaly Extremities/Musculoskeletal: no cyanosis or clubbing, extremities motor strength 5/5 Neurologic: PERRL, EOMI, accommodation nl, no face palsy, no dysarthria, CN's II-XI intact bilaterally and moves all extremities, + L hemiparesis chronic Psychiatric:A+Ox3, euthymic affect Skin: no rashes, normal color, warm/dry Principal Diagnosis Acute diastolic decompensated heart failure Atrial fibrillation with RVR Discharge Exam Constitutional: WD/WN, vitals as above, NAD, sitting up in bed, pleasant, conversing easily Respiratory: normal respiratory effort, lungs clear to auscultation, no wheeze, rales, rhonchi. Normal insp/exp effort, no accessory muscle use Cardiovascular: RRR, no murmur, no edema Vessels: no JVD or carotid bruit Chest: normal inspection of chest Abdomen: normal bowel sounds, soft, nontender, no hepatosplenomegaly Musculoskeletal: no cyanosis or clubbing, extremities motor strength 5/5. 2+ pitting edema present. Skin: no rashes, warm and dry normal turgor Neurologic: PERRL, EOMI, accommodation nl, no face palsy, no dysarthria CN's II- XI intact bilaterally and moves all extremities Psychiatric: A+Ox3, euthymic affect Lymphatic: no cervical or axillary lymphadenopathy : deferred Discharge Data Allergies Allergy/AdvReac Type Severity Reaction Status Date / Time mold Allergy Mild Congested Verified 07/03/22 22:30 pollen extracts Allergy Mild Congested Verified 07/03/22 22:30 doxycycline AdvReac Severe LIVER/KIDNEY Verified 07/03/22 22:32 PROBLEMS Consultations 10/07/22 13:43 Consult Cardiology Stat 10/07/22 14:31 ED Decision to Admit Stat 10/08/22 07:21 Consult Urology Routine Hospital Course (1) Acute decompensated heart failure: (2) Atrial fibrillation with rapid ventricular response: (3) S/P mitral valve replacement with bioprosthetic valve: (4) Aortic stenosis: (5) HTN (hypertension): (6) BPH w urinary obs/LUTS: (7) Asthma: Plan 77yo M with a PMH of recent staph bacteremia with h/o endocarditis s/p bioprosthetic mitral valve replacement at [facility] in June 2022, paroxysmal A- fib, aortic valve stenosis, hypertension, BPH, history of left hemiparesis, depression, asthma, chronic diastolic heart failure and other medical problems listed below who was sent over from cardiology clinic due to atrial fibrillation w/RVR and decompensated heart failure. He was managed for the following during the hospitalization: Acute diastolic decompensated heart failure Atrial fibrillation with RVR Patient presented to the hospital with shortness of breath. Chest x-ray on admission reviewed personally; found to have pulmonary edema History of non-compliance with home lasix, weight gain of 20+ lbs at presentation. During the hospitalization, patient was treated with IV diuretics; he had total of 12 L negative balance at the time of the discharge. He was discharged on torsemide 20 mg once daily. For the A-fib with RVR, metoprolol dose was increased to 50 mg twice daily. He had an episode of V. tach while having his blood drawn but remained asymptomatic. At the time of the discharge, he was saturating well in room air, able to ambulate without any difficulty but still had pitting edema. Patient was given instructions regarding weighing himself daily as well as following up with PCP and cardiology. All other medication were resumed as before. Please note the above document was generated using voice recognition software. It may contain grammatical, syntax or spelling errors. Any formal questions or concerns about the content, text or information contained within the body of this dictation should be directly addressed to the provider for clarification Total Time Total Time Spent Total Time Spent (In Minutes): 45 Total Time Includes: Examination of the Patient, Discharge Planning, Medication Reconciliation, Communication With Other Providers and Other Discharge Plan Discharge Items Patient Disposition: Home - Self-Care Reason For Visit: A FIB WITH RVR, DECOMPENSATED HF Discharge Diagnosis: Atrial fibrillation with RVR. Acute on chronic diastolic heart failure Activity: Resume your previous activity Non-emergency contact: Primary Care Provider Call non-emergency contact if: you have any medication questions Follow-up/Referrals: Alex Steve DO [Primary Care Provider] - (Date & Time 10/17/2022 1:00 PM Provider Alex Steve DO Department [facility] ) Diet: Regular Addtl Attending Provider Instructions: You were admitted to the hospital with atrial fibrillation with RVR and congestive heart failure. The following medication are added to your medication regimen: 1) Metoprolol 50 mg twice daily 2) Spironolactone 25 mg once daily 3) Torsemide 20 mg once daily Please measure your weight daily on a weighing scale every day at the same time and keep a record of it. If you notice increasing leg swelling, gain of 3 to 5 pounds of weight and noticed to have increasing shortness of breath; please contact your primary care doctor. You might need to increase the diuretic dose. Please hold warfarin for today. You can start taking it from tomorrow. Follow- up with anticoagulation clinic for PT/INR. Please follow-up with your primary care doctor. Pending Studies at Discharge: No Stand-Alone Forms: My [facility] [employer], Smoking Cessation Medications and DC Order Prescriptions: New metoprolol succinate 50 mg Tablet Extended Release 24 Hr 50 mg PO BID Qty: 60 0RF spironolactone 25 mg Tablet 25 mg PO DAILY Qty: 30 0RF torsemide 20 mg tablet 20 mg PO DAILY Qty: 30 0RF cefadroxil 500 mg capsule 500 mg PO BID Qty: 60 0RF Continued cetirizine 10 mg Tablet 10 mg PO QAM allopurinol 100 mg Tablet 200 mg PO BID albuterol sulfate 90 mcg/actuation Hfa Aerosol Inhaler 1 inh INHALATION QID PRN (Reason: sob) amoxicillin 500 mg Capsule 2,000 mg PO DIRECTED PRN (Reason: PRIOR TO DENTAL APPT.) albuterol sulfate 2.5 mg /3 mL (0.083 %) Solution For Nebulization 2.5 mg INHALATION Q6H PRN (Reason: SHORTNESS OF BREATH/COUGH) montelukast [Singulair] 10 mg Tablet 10 mg PO HS atorvastatin 40 mg tablet 40 mg PO DAILY potassium chloride 10 mEq Capsule, Extended Release 10 meq PO DAILY psyllium Packet 1 packet PO DAILY Rx Instructions: mix into at least 8 oz of water or juice before administering selenium 50 mcg Tablet 50 mcg PO DAILY famotidine 20 mg Tablet 20 mg PO DAILY tamsulosin 0.4 mg Capsule 0.4 mg PO DAILY warfarin 5 mg tablet 10 mg PO DAILY@1600 vitamin E 400 unit Tablet 400 unit PO DAILY vitamin B complex Tablet 1 tab PO DAILY fluticasone propionate 50 mcg/actuation [place],Suspension 2 spray INTRANASAL DAILY Rx Instructions: administer into each nostril finasteride 5 mg tablet 5 mg PO DAILY magnesium 200 mg Tablet 400 mg PO DAILY escitalopram oxalate 10 mg tablet 10 mg PO DAILY omega-3 fatty acids Capsule 1,000 mg PO DAILY budesonide-formoterol [Symbicort] 160-4.5 mcg/actuation HFA aerosol inhaler 2 puff INHALATION BID Centrum Silver Men 300-600-300 mcg Tablet 1 tab PO DAILY docusate sodium 100 mg Capsule 100 mg PO BID PRN (Reason: Constipation) Discontinued furosemide 40 mg tablet 40 mg PO DAILY cefadroxil 500 mg capsule 500 mg PO BID Discharge Orders: Discharge Order- CHF (Routine); Ordered 10/16/22 Ordered By: Manjinder Jackman/Other Patient Handouts: Heart Failure Meds, What Is Heart Failure, Heart Failure Flare Up Signs, Heart Failure: Tracking Your Weight, Taking a Diuretic Admission Data Admit Date/Time: 10/07/22 15:07 Attending Provider: Manjinder Kuhn Admit Provider: Ermelinda Campbell Primary Care Provider: Alex Steve Other Providers: Jm Ford ; Ermelinda Campbell ; Davi Grier ; Qasim Dodge ; Liborio Valdovinos ; Sheila Coronado ; Kong Pitts ; Whitney Magaña ; Flores Lopez ; Ramses Taylor ; Cayden Do ; Shaina Broderick ; Gael Daily ; Omi Pérez Other Interventions: Discharge Summary Assessment (RN) Last Done: 10/16/22 13:56
== END 2022-10-16 14:37 | disposition home or self-care (01) | DRG 291 ==
LOC: ED 13:19 → SUATTDRO 15:07 → 4W 15:07 → ED 17:33

== ENCOUNTER 2023-01-04 20:53 | Inpatient (IN) ==
[2023-01-04] MEDS ORDERED: ONDANSETRON INJ 2 MG/ML 2 ML VIAL ONE (21:07)
[2023-01-04] MEDS ORDERED: IOVERSOL 350 MG 125mL Prefilled Syringe IV ONE (21:08)
[2023-01-04 21:26] LABS: iSTAT Creatinine 1.3 mg/dl (0.6-1.3); iSTAT Hemoglobin 11.9 g/dl (14.0-18.0); iSTAT Ionized Calcium 1.13 mmol/l (1.12-1.32); iSTAT Potassium 3.3 mmol/L (3.3-5.0)
--- NOTE | 2023-01-04 21:28 | CT Scan Report ---
Exam(s): CT HEAD Without Contrast EXAM: CT Head Without Intravenous Contrast CLINICAL HISTORY: Reason for exam: neuro deficit, acute stroke suspected. TECHNIQUE: Axial computed tomography images of the head/brain without intravenous contrast. CTDI is 44.21 mGy and DLP is 774.27 mGy-cm. Automated exposure control was utilized for the study. A dose lowering technique was utilized adhering to the principles of ALARA. COMPARISON: No relevant prior studies available. FINDINGS: Brain: Chronic periventricular ischemic demyelination changes seen due to small vessel disease. Old encephalomalacia seen in the right posterior temporal lobe. No hemorrhage. Ventricles: Unremarkable. No ventriculomegaly. Bones/joints: Unremarkable. No acute fracture. Soft tissues: Unremarkable. Sinuses: Unremarkable as visualized. No acute sinusitis. Mastoid air cells: Unremarkable as visualized. No mastoid effusion. IMPRESSION: No acute intracranial abnormality Communications: Call Doctor Stroke Electronically signed by: Freddy Lowry MD 01/04/23 21:27 PM
--- NOTE | 2023-01-04 21:30 | CT Scan Report ---
Exam(s): CTA HEAD With Contrast IV Amt: 118 ml optiray 350 EXAM: CT Angiography Head With Intravenous Contrast CLINICAL HISTORY: Reason for exam: neuro deficit, acute stroke suspected. TECHNIQUE: Axial computed tomographic angiography images of the head with intravenous contrast. CTDI is 26.99 mGy and DLP is 13.49 mGy-cm. Automated exposure control was utilized for the study. A dose lowering technique was utilized adhering to the principles of ALARA. MIP reconstructed images were created and reviewed. CONTRAST: Patient received 118 ml optiray 350 of IV contrast COMPARISON: No relevant prior studies available. FINDINGS: Right internal carotid artery: No acute findings. Intracranial segment is patent with no significant stenosis. No aneurysm. Right anterior cerebral artery: Unremarkable. No occlusion or significant stenosis. No aneurysm. Right middle cerebral artery: Unremarkable. No occlusion or significant stenosis. No aneurysm. Right posterior cerebral artery: Unremarkable. No occlusion or significant stenosis. No aneurysm. Right vertebral artery: Unremarkable as visualized. Left internal carotid artery: No acute findings. Intracranial segment is patent with no significant stenosis. No aneurysm. Left anterior cerebral artery: Unremarkable. No occlusion or significant stenosis. No aneurysm. Left middle cerebral artery: Unremarkable. No occlusion or significant stenosis. No aneurysm. Left posterior cerebral artery: Unremarkable. No occlusion or significant stenosis. No aneurysm. Left vertebral artery: Unremarkable as visualized. Basilar artery: Unremarkable. No occlusion or significant stenosis. No aneurysm. IMPRESSION: Normal head CTA. Communications: Call Doctor Stroke Electronically signed by: Freddy Lowry MD 01/04/23 21:29 PM
[2023-01-04 21:33] LABS: Basophils # (auto) 0.06 K/uL (0-0.2); Basophils % (auto) 0.9 %; Eosinophils # (auto) 0.38 K/uL (0-0.50); Eosinophils % (auto) 5.6 %; Hematocrit (blood only) 33.4 % (42.0-52.0); Hemoglobin 10.7 g/dl (14.0-18.0); INR 1.3 (0.9-1.1); Immature Granulocytes # (auto) 0.02 K/uL (0.01-0.20); Immature Granulocytes % (auto) 0.3 %; Lymphocytes # (auto) 2.08 K/uL (1.2-3.4); Lymphocytes % (auto) 30.8 %; Mean Corpuscular Hemoglobin 27.1 pg (25.0-34.0); Mean Corpuscular Volume 84.6 fL (80.0-100.0); Mean Platelet Volume 10.4 fL (9.4-12.4); Monocytes % (auto) 10.4 %; Neutrophils # (auto) 3.51 K/uL (1.40-6.50); Partial Thromboplastin Ratio 0.9; Partial Thromboplastin Time 26.1 Seconds (21.0-31.0); Platelet Count 164 K/uL (130-400); Prothrombin Time 14.5 Seconds (9.0-12.0); RDW Coefficient of Variation 22.6 % (11.5-14.5); RDW Standard Deviation 69.1 fL (36.4-46.3); Red Blood Count 3.95 M/uL (4.70-6.10); White Blood Count 6.75 K/ul (4.8-10.8)
--- NOTE | 2023-01-04 21:34 | CT Scan Report ---
Exam(s): CTA NECK With Contrast IV Amt: 118 ml optiray 350 EXAM: CT Angiography Neck With Intravenous Contrast CLINICAL HISTORY: Reason for exam: neuro deficit, acute stroke suspected. TECHNIQUE: Routine carotid CT angiography protocol was performed with intravenous contrast. NASCET criteria using the distal ICAs for comparison were used for evaluation of stenoses. CTDI is 13.34 mGy and DLP is 463.95 mGy-cm. Automated exposure control was utilized for the study. A dose lowering technique was utilized adhering to the principles of ALARA. MIP reconstructed images were created and reviewed. CONTRAST: Patient received 118 ml optiray 350 of IV contrast COMPARISON: None. FINDINGS: VASCULATURE: Right common carotid artery: Unremarkable. No occlusion or significant stenosis. No dissection. Right internal carotid artery: Unremarkable. Extracranial segment is patent with no occlusion or significant stenosis. No dissection. Right external carotid artery: Unremarkable. No occlusion. Right vertebral artery: Unremarkable. No occlusion or significant stenosis. No dissection. Left common carotid artery: Unremarkable. No occlusion or significant stenosis. No dissection. Left internal carotid artery: Unremarkable. Extracranial segment is patent with no occlusion or significant stenosis. No dissection. Left external carotid artery: Unremarkable. No occlusion. Left vertebral artery: Unremarkable. No occlusion or significant stenosis. No dissection. NECK: Bones/joints: Unremarkable. Soft tissues: Unremarkable. Lung apices: Clear. CAROTID STENOSIS REFERENCE USING NASCET CRITERIA: % ICA stenosis = (1 - narrowest ICA diameter/diameter of distal cervical ICA) x 100. Mild - <50% stenosis. Moderate - 50-69% stenosis. Severe - 70-94% stenosis. Near occlusion - 95-99% stenosis. Occluded - 100% stenosis. IMPRESSION: Negative CTA neck. Communications: Call Doctor Stroke Electronically signed by: Freddy Lowry MD 01/04/23 21:33 PM
[2023-01-04] MEDS ORDERED: STAT IV STA (21:40)
[2023-01-04] MEDS ORDERED: SODIUM CHLORIDE 0.9% 10ML FLUSH IV STA (21:40)
[2023-01-04 21:42] LABS: Albumin Level 3.7 gm/dl (3.4-5.0); Bilirubin,Total 0.6 mg/dl (0.2-1.0); Calcium 8.8 mg/dl (8.6-10.3); Potassium 3.2 mmol/L (3.5-5.1)
[2023-01-04] MEDS ORDERED: No Aspirin within 24hrs of THROMBOLYTIC-Stroke PO SCH (21:45)
[2023-01-04 21:48] LABS: Albumin Globulin Ratio 1.9 (0.9-2); BUN Creatinine Ratio 15.4 (10-20); Est GFR (African American) 79.3 ml/min; Est GFR (Non-African American) 68.4 ml/min; Total Protein 5.7 gm/dl (6.0-8.3)
[2023-01-04] MEDS ORDERED: TENECTEPLASE 25 MG in SYRINGE 0 ML IV ONE (21:50)
[2023-01-04 21:52] LABS: Troponin I High Sensitivity 8.2 pg/ml (0-20)
[2023-01-04 21:59] LABS: Anisocytosis Present; Ovalocytes 1+; Polychromasia 2+
[2023-01-04 22:14] LABS: Appearance Urine Clear (Clear); Bilirubin Urine Negative (Negative); Blood Urine Negative (Negative); Color Urine Dark Yellow; Glucose Urine UA Negative (Negative); Ketones Urine Negative (Negative); Leukocyte Esterase Urine Negative (Negative); Nitrite Urine Negative (Negative); Protein Urine Negative (Negative); Specific Gravity Urine 1.021 (1.000-1.030); Urobilinogen Urine Negative (Negative); pH Urine 5.5 (4.5-7.5)
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
[2023-01-04] MEDS ORDERED: ALBUMIN 25% 25 GM/100 ML VIAL IV ONE (22:38)
[2023-01-04] MEDS: POTASSIUM CHLORIDE / WTR 10 MEQ/100 ML PLCT IV SCH (22:48)
[2023-01-04 22:51] LABS: Amphetamines+Metham, Urine Neg (Neg); Barbiturates, Urine Neg (Neg); Benzodiazepine, Urine Neg (Neg); Cocaine, Urine Neg (Neg); MDMA (Ecstacy), Urine Neg (Neg); Methadone, Urine Neg (Neg); Opiate, Urine Neg (Neg); Phencyclidine, Urine Neg (Neg)
[2023-01-04] MEDS ORDERED: PHARMACIST DISCHARGE MED REC CONSULT PRN (23:35)
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
[2023-01-05] MEDS: POTASSIUM CHLORIDE / WTR 10 MEQ/100 ML PLCT IV SCH ×3 (01:26→04:25)
--- NOTE | 2023-01-05 01:35 | Emergency Department Note ---
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 ED Discharge Assessment Last Done: 01/04/23 23:06
[2023-01-05] MEDS ORDERED: ALBUT/IPRATROP 3MG/0.5MG NEB 3 ML VIAL NEB PRN (02:52)
[2023-01-05 05:41] LABS: Basophils # (auto) 0.03 K/uL (0-0.2); Basophils % (auto) 0.6 %; Eosinophils # (auto) 0.26 K/uL (0-0.50); Hematocrit (blood only) 33.9 % (42.0-52.0); Hemoglobin 10.8 g/dl (14.0-18.0); Lymphocytes # (auto) 1.23 K/uL (1.2-3.4); Lymphocytes % (auto) 23.7 %; Mean Corpuscular Hemoglobin 27.1 pg (25.0-34.0); Mean Corpuscular Hgb Conc 31.9 g/dL (32.0-36.0); Mean Corpuscular Volume 85.2 fL (80.0-100.0); Mean Platelet Volume 9.8 fL (9.4-12.4); Monocytes # (auto) 0.46 K/uL (0.11-0.59); Monocytes % (auto) 8.9 %; Neutrophils # (auto) 3.21 K/uL (1.40-6.50); Neutrophils % (auto) 61.8 %; Platelet Count 146 K/uL (130-400); RDW Coefficient of Variation 22.9 % (11.5-14.5); RDW Standard Deviation 70.9 fL (36.4-46.3); Red Blood Count 3.98 M/uL (4.70-6.10); White Blood Count 5.19 K/ul (4.8-10.8)
[2023-01-05 06:03] LABS: Anisocytosis Present; Polychromasia 1+
[2023-01-05 06:05] LABS: INR 1.3 (0.9-1.1); Prothrombin Time 14.4 Seconds (9.0-12.0)
[2023-01-05 06:10] LABS: BUN Creatinine Ratio 17.2 (10-20); Calcium 9.1 mg/dl (8.6-10.3); Creatinine Clr Calc Pharmacy 75.3 ml/min; Est GFR (African American) 95.8 ml/min; Est GFR (Non-African American) 82.7 ml/min; Phosphorus 4.3 mg/dl (2.5-4.9)
--- NOTE | 2023-01-05 07:47 | Critical Care Progress Note ---
Date of Service January 05, 2023 Assessment & Plan (1) tPA adm status 24 hr DIGITAL CONTENT COORDINATOR: (2) Atrial fibrillation, controlled: (3) Chronic anticoagulation: (4) Anemia: Plan Impression: 77-year-old male with heart failure status post mitral valve replacement on chronic Coumadin therapy admitted with left-sided facial droop and dysarthria. Received TNK at 2130. Observed in the ICU with improvement in neurological symptoms and no evidence of bleeding complications. Recommendations: 1. Status post TNK administration. Continue to follow 24 hours for bleeding complications. Repeat CT scan at 9 PM tonight and if negative patient can downgrade to telemetry. 2. History of significant valvular heart disease and mitral valve replacement. Holding anticoagulation for 24 hours and then will need to reassess. Will likely need to restart Coumadin. Will defer to the primary service and cardiology as to whether or not overlap with heparin is required before Coumadin becomes therapeutic. Will defer to neurology whether or not the patient needs triple therapy including aspirin Plavix and Coumadin. This does not appear to be a Coumadin failure as the patient was subtherapeutic on presentation. 3. Anemia: Stable. No evidence of blood loss. No indication for transfusion currently. 4. Will need PT OT and speech therapy evaluations per stroke protocol. We will continue to observe in the ICU for bleeding complications associated with systemic thrombolytic administration for the next 12 hours. Feel free to contact us with questions or concerns Admission and Anticipated Discharge Date Admission Date: January 04, 2023 Subjective Patient seen and examined. EMR reviewed. He feels that neurologically he is back to baseline. He is no longer having speech issues. No evidence of bleeding complications. Review of Systems Review of Systems: All systems reviewed & are unremarkable except as noted in Subjective Physical Exam Constitutional: WD/WN, vitals as above Neck: trachea midline, no thyromegaly Respiratory: normal respiratory effort, lungs clear to auscultation Cardiovascular: RRR, no murmur, no edema Gastrointestinal (Abdomen): normal bowel sounds, soft, nontender, no hepatosplenomegaly Musculoskeletal: Extremities: extremities normal to inspection Skin: no rashes, warm and dry Neurologic: Nonfocal exam Lymphatic: no cervical lymphadenopathy Results & Data Results & Data Vital Signs (Past 12 Hours) Vital Signs Temp Pulse Pulse Resp BP BP Pulse Ox 01/05/23 07:05 36.4 C L 91 H 24 116/89 97 01/05/23 06:35 36.6 C 99 H 22 122/94 94 01/05/23 06:05 36.7 C 96 H 19 131/73 97 01/05/23 05:35 36.7 C 95 H 20 111/85 97 01/05/23 05:05 36.4 C L 108 H 23 90/61 L 96 01/05/23 04:35 36.4 C L 88 23 118/77 96 01/05/23 04:05 36.6 C 82 26 H 96/79 L 97 01/05/23 03:35 36.6 C 91 H 27 H 94/75 L 95 01/05/23 03:15 91 H 19 96 01/05/23 03:15 99/77 L 01/05/23 03:06 110/82 01/05/23 03:06 97 H 20 98 01/05/23 03:00 94 H 21 97 01/05/23 03:00 115/81 01/05/23 00:05 98 01/05/23 00:00 01/04/23 23:50 88 L 01/05/23 02:50 95 H 01/05/23 03:05 36.6 C 94 H 21 110/82 98 01/05/23 02:45 95 H 97 01/05/23 02:45 114/76 01/05/23 02:30 95 H 96 01/05/23 02:30 106/76 01/05/23 02:15 88 01/05/23 02:15 107/86 01/05/23 02:00 98 H 19 97 01/05/23 02:00 111/69 01/05/23 01:45 85 20 96 01/05/23 01:45 105/82 01/05/23 01:30 87 17 97 01/05/23 01:30 108/78 01/05/23 01:15 87 21 97 01/05/23 01:15 100/78 01/05/23 01:00 101 H 15 96 01/05/23 01:00 101/79 01/05/23 00:45 88 22 97 01/05/23 00:45 98/77 L 01/05/23 00:30 93 H 98 01/05/23 00:30 114/80 01/05/23 00:15 89 23 97 01/05/23 00:15 116/80 01/05/23 00:10 120/73 01/05/23 00:10 103 H 99 01/05/23 00:07 120/85 01/05/23 00:07 92 H 22 97 01/05/23 00:00 100 H 17 91 01/05/23 00:00 117/90 01/04/23 23:45 91 H 19 97 01/04/23 23:32 86 9 L 01/05/23 01:35 36.6 C 91 H 16 108/78 95 01/05/23 01:05 36.6 C 93 H 24 101/79 95 01/05/23 02:35 36.6 C 102 H 24 106/76 97 01/05/23 02:05 36.6 C 86 18 111/69 97 01/05/23 00:35 36.6 C 84 24 114/80 98 01/05/23 00:05 36.4 C L 92 H 19 120/73 98 01/04/23 23:50 36.4 C L 97 H 18 120/85 99 01/04/23 23:35 36.4 C L 87 24 117/90 94 01/04/23 23:20 36.4 C L 84 12 122/85 94 01/04/23 23:05 86 18 113/76 96 01/04/23 22:00 90 20 91/62 L 95 01/04/23 21:45 83 23 100/71 92 01/04/23 21:36 92 H 25 H 112/80 95 01/04/23 22:50 36.4 C L 85 18 97/73 L 96 01/04/23 22:19 22 106/65 97 01/04/23 22:05 82 22 101/67 95 01/04/23 22:04 88 19 97/65 L 95 01/04/23 21:29 90 24 114/75 94 01/04/23 21:15 88 01/04/23 21:27 87 L 01/04/23 21:03 36.6 C 93 H 20 129/99 93 O2 Del Method O2 Flow Rate 01/05/23 07:05 Nasal Cannula 1 01/05/23 06:35 Nasal Cannula 1 01/05/23 06:05 Nasal Cannula 1 01/05/23 05:35 Nasal Cannula 1 01/05/23 05:05 Nasal Cannula 1 01/05/23 04:35 Nasal Cannula 1 01/05/23 04:05 Nasal Cannula 1 01/05/23 03:35 Nasal Cannula 1 01/05/23 03:15 01/05/23 03:15 01/05/23 03:06 01/05/23 03:06 01/05/23 03:00 01/05/23 03:00 01/05/23 00:05 Nasal Cannula 2 01/05/23 00:00 Nasal Cannula 1 01/04/23 23:50 Nasal Cannula 0 01/05/23 02:50 01/05/23 03:05 Nasal Cannula 1 01/05/23 02:45 01/05/23 02:45 01/05/23 02:30 01/05/23 02:30 01/05/23 02:15 01/05/23 02:15 01/05/23 02:00 01/05/23 02:00 01/05/23 01:45 01/05/23 01:45 01/05/23 01:30 01/05/23 01:30 01/05/23 01:15 01/05/23 01:15 01/05/23 01:00 01/05/23 01:00 01/05/23 00:45 01/05/23 00:45 01/05/23 00:30 01/05/23 00:30 01/05/23 00:15 01/05/23 00:15 01/05/23 00:10 01/05/23 00:10 01/05/23 00:07 01/05/23 00:07 01/05/23 00:00 01/05/23 00:00 01/04/23 23:45 01/04/23 23:32 01/05/23 01:35 Nasal Cannula 1 01/05/23 01:05 Nasal Cannula 1 01/05/23 02:35 Nasal Cannula 1 01/05/23 02:05 Nasal Cannula 1 01/05/23 00:35 Nasal Cannula 1 01/05/23 00:05 Nasal Cannula 1 01/04/23 23:50 Nasal Cannula 2 01/04/23 23:35 Room Air 01/04/23 23:20 Room Air 01/04/23 23:05 Room Air 01/04/23 22:00 Nasal Cannula 2 01/04/23 21:45 Nasal Cannula 2 01/04/23 21:36 Nasal Cannula 2 01/04/23 22:50 Room Air 01/04/23 22:19 Room Air 01/04/23 22:05 Room Air 01/04/23 22:04 Room Air 01/04/23 21:29 Nasal Cannula 2 01/04/23 21:15 01/04/23 21:27 Room Air 01/04/23 21:03 Room Air Critical Care Results & Data Vital Signs (Past 12 Hours) Vital Signs Temp Pulse Pulse Resp BP BP Pulse Ox 01/05/23 07:05 36.4 C L 91 H 24 116/89 97 01/05/23 06:35 36.6 C 99 H 22 122/94 94 01/05/23 06:05 36.7 C 96 H 19 131/73 97 01/05/23 05:35 36.7 C 95 H 20 111/85 97 01/05/23 05:05 36.4 C L 108 H 23 90/61 L 96 01/05/23 04:35 36.4 C L 88 23 118/77 96 01/05/23 04:05 36.6 C 82 26 H 96/79 L 97 01/05/23 03:35 36.6 C 91 H 27 H 94/75 L 95 01/05/23 03:15 91 H 19 96 01/05/23 03:15 99/77 L 01/05/23 03:06 110/82 01/05/23 03:06 97 H 20 98 01/05/23 03:00 94 H 21 97 01/05/23 03:00 115/81 01/05/23 00:05 98 01/05/23 00:00 01/04/23 23:50 88 L 01/05/23 02:50 95 H 01/05/23 03:05 36.6 C 94 H 21 110/82 98 01/05/23 02:45 95 H 97 01/05/23 02:45 114/76 01/05/23 02:30 95 H 96 01/05/23 02:30 106/76 01/05/23 02:15 88 01/05/23 02:15 107/86 01/05/23 02:00 98 H 19 97 01/05/23 02:00 111/69 01/05/23 01:45 85 20 96 01/05/23 01:45 105/82 01/05/23 01:30 87 17 97 01/05/23 01:30 108/78 01/05/23 01:15 87 21 97 01/05/23 01:15 100/78 01/05/23 01:00 101 H 15 96 01/05/23 01:00 101/79 01/05/23 00:45 88 22 97 01/05/23 00:45 98/77 L 01/05/23 00:30 93 H 98 01/05/23 00:30 114/80 01/05/23 00:15 89 23 97 01/05/23 00:15 116/80 01/05/23 00:10 120/73 01/05/23 00:10 103 H 99 01/05/23 00:07 120/85 01/05/23 00:07 92 H 22 97 01/05/23 00:00 100 H 17 91 01/05/23 00:00 117/90 01/04/23 23:45 91 H 19 97 01/04/23 23:32 86 9 L 01/05/23 01:35 36.6 C 91 H 16 108/78 95 01/05/23 01:05 36.6 C 93 H 24 101/79 95 01/05/23 02:35 36.6 C 102 H 24 106/76 97 01/05/23 02:05 36.6 C 86 18 111/69 97 01/05/23 00:35 36.6 C 84 24 114/80 98 01/05/23 00:05 36.4 C L 92 H 19 120/73 98 01/04/23 23:50 36.4 C L 97 H 18 120/85 99 01/04/23 23:35 36.4 C L 87 24 117/90 94 01/04/23 23:20 36.4 C L 84 12 122/85 94 01/04/23 23:05 86 18 113/76 96 01/04/23 22:00 90 20 91/62 L 95 01/04/23 21:45 83 23 100/71 92 01/04/23 21:36 92 H 25 H 112/80 95 01/04/23 22:50 36.4 C L 85 18 97/73 L 96 01/04/23 22:19 22 106/65 97 01/04/23 22:05 82 22 101/67 95 01/04/23 22:04 88 19 97/65 L 95 01/04/23 21:29 90 24 114/75 94 01/04/23 21:15 88 01/04/23 21:27 87 L 01/04/23 21:03 36.6 C 93 H 20 129/99 93 O2 Del Method O2 Flow Rate 01/05/23 07:05 Nasal Cannula 1 01/05/23 06:35 Nasal Cannula 1 01/05/23 06:05 Nasal Cannula 1 01/05/23 05:35 Nasal Cannula 1 01/05/23 05:05 Nasal Cannula 1 01/05/23 04:35 Nasal Cannula 1 01/05/23 04:05 Nasal Cannula 1 01/05/23 03:35 Nasal Cannula 1 01/05/23 03:15 01/05/23 03:15 01/05/23 03:06 01/05/23 03:06 01/05/23 03:00 01/05/23 03:00 01/05/23 00:05 Nasal Cannula 2 01/05/23 00:00 Nasal Cannula 1 01/04/23 23:50 Nasal Cannula 0 01/05/23 02:50 01/05/23 03:05 Nasal Cannula 1 01/05/23 02:45 01/05/23 02:45 01/05/23 02:30 01/05/23 02:30 01/05/23 02:15 01/05/23 02:15 01/05/23 02:00 01/05/23 02:00 01/05/23 01:45 01/05/23 01:45 01/05/23 01:30 01/05/23 01:30 01/05/23 01:15 01/05/23 01:15 01/05/23 01:00 01/05/23 01:00 01/05/23 00:45 01/05/23 00:45 01/05/23 00:30 01/05/23 00:30 01/05/23 00:15 01/05/23 00:15 01/05/23 00:10 01/05/23 00:10 01/05/23 00:07 01/05/23 00:07 01/05/23 00:00 01/05/23 00:00 01/04/23 23:45 01/04/23 23:32 01/05/23 01:35 Nasal Cannula 1 01/05/23 01:05 Nasal Cannula 1 01/05/23 02:35 Nasal Cannula 1 01/05/23 02:05 Nasal Cannula 1 01/05/23 00:35 Nasal Cannula 1 01/05/23 00:05 Nasal Cannula 1 01/04/23 23:50 Nasal Cannula 2 01/04/23 23:35 Room Air 01/04/23 23:20 Room Air 01/04/23 23:05 Room Air 01/04/23 22:00 Nasal Cannula 2 01/04/23 21:45 Nasal Cannula 2 01/04/23 21:36 Nasal Cannula 2 01/04/23 22:50 Room Air 01/04/23 22:19 Room Air 01/04/23 22:05 Room Air 01/04/23 22:04 Room Air 01/04/23 21:29 Nasal Cannula 2 01/04/23 21:15 01/04/23 21:27 Room Air 01/04/23 21:03 Room Air Lab & Micro Results (Past 24 Hours) RBC 3.98 M/uL (4.70-6.10) L 01/05/23 WBC 5.19 K/ul (4.8-10.8) 01/05/23 Hgb 10.8 g/dl (14.0-18.0) L 01/05/23 Hct 33.9 % (42.0-52.0) L 01/05/23 MCV 85.2 fL (80.0-100.0) 01/05/23 MCH 27.1 pg (25.0-34.0) 01/05/23 MCHC 31.9 g/dL (32.0-36.0) L 01/05/23 RDW Standard Deviation 70.9 fL (36.4-46.3) H 01/05/23 RDW Coefficient of Variation 22.9 % (11.5-14.5) H 01/05/23 Plt Count 146 K/uL (130-400) 01/05/23 MPV 9.8 fL (9.4-12.4) 01/05/23 Neutrophils (%) (Auto) 61.8 % 01/05/23 Lymphocytes (%) (Auto) 23.7 % 01/05/23 Monocytes # (Auto) 0.46 K/uL (0.11-0.59) 01/05/23 Eosinophils # (Auto) 0.26 K/uL (0-0.50) 01/05/23 Immature Granulocyte % (Auto) 0.0 % 01/05/23 Neutrophils # (Auto) 3.21 K/uL (1.40-6.50) 01/05/23 Lymphocytes # (Auto) 1.23 K/uL (1.2-3.4) 01/05/23 Monocytes # (Auto) 0.46 K/uL (0.11-0.59) 01/05/23 Eosinophils # (Auto) 0.26 K/uL (0-0.50) 01/05/23 Basophils # (Auto) 0.03 K/uL (0-0.2) 01/05/23 Immature Granulocyte # (Auto) 0.00 K/uL (0.01-0.20) L 01/05 Polychromasia 1+ 01/05/23 Anisocytosis Present 01/05/23 Ovalocytes 1+ 01/04/23 Na 139 mmol/L (136-145) 01/05/23 K 4.0 mmol/L (3.5-5.1) 01/05/23 Cl 104 mmol/L (98-107) 01/05/23 CO2 27 mmol/L (21-32) 01/05/23 Anion Gap 8 (3-11) 01/05/23 BUN 15 mg/dl (6-23) 01/05/23 Creatinine 0.87 mg/dl (0.6-1.4) 01/05/23 Estimated GFR ( Amer) 95.8 ml/min 01/05/23 Estimated GFR (Non-Af Amer) 82.7 ml/min 01/05/23 BUN/Creatinine Ratio 17.2 (10-20) 01/05/23 Glu 91 mg/dl (70-99(Fasting)) 01/05/23 Ca 9.1 mg/dl (8.6-10.3) 01/05/23 Phosphorus Level 4.3 mg/dl (2.5-4.9) 01/05/23 Total Bilirubin 0.6 mg/dl (0.2-1.0) 01/04/23 AST 22 U/L (13-39) 01/04/23 ALT 16 U/L (7-52) 01/04/23 Alkaline Phosphatase 82 U/L (34-104) 01/04/23 TP 5.7 gm/dl (6.0-8.3) L 01/04/23 Albumin 3.7 gm/dl (3.4-5.0) 01/04/23 Globulin 2.0 gm/dl (2.5-4.0) L 01/04/23 Albumin/Globulin Ratio 1.9 (0.9-2) 01/04/23 Mg 2.0 mg/dl (1.7-2.4) 01/05/23 05:08 Calcium Level 9.1 mg/dl (8.6-10.3) 01/05/23 05:08 Prothromb Time International Ratio 1.3 (0.9-1.1) H 01/05/23 05 :08 Diagnostic Findings (Past 24 Hours) Head CT 01/04/23 20:56 CR Exam(s): CT HEAD Without Contrast EXAM: CT Head Without Intravenous Contrast CLINICAL HISTORY: Reason for exam: neuro deficit, acute stroke suspected. TECHNIQUE: Axial computed tomography images of the head/brain without intravenous contrast. CTDI is 44.21 mGy and DLP is 774.27 mGy-cm. Automated exposure control was utilized for the study. A dose lowering technique was utilized adhering to the principles of ALARA. COMPARISON: No relevant prior studies available. FINDINGS: Brain: Chronic periventricular ischemic demyelination changes seen due to small vessel disease. Old encephalomalacia seen in the right posterior temporal lobe. No hemorrhage. Ventricles: Unremarkable. No ventriculomegaly. Bones/joints: Unremarkable. No acute fracture. Soft tissues: Unremarkable. Sinuses: Unremarkable as visualized. No acute sinusitis. Mastoid air cells: Unremarkable as visualized. No mastoid effusion. IMPRESSION: No acute intracranial abnormality Communications: Call Doctor Stroke Electronically signed by: Freddy Lowry MD 01/04/23 21:27 PM Head CTA 01/04/23 20:56 CR Exam(s): CTA HEAD With Contrast IV Amt: 118 ml optiray 350 EXAM: CT Angiography Head With Intravenous Contrast CLINICAL HISTORY: Reason for exam: neuro deficit, acute stroke suspected. TECHNIQUE: Axial computed tomographic angiography images of the head with intravenous contrast. CTDI is 26.99 mGy and DLP is 13.49 mGy-cm. Automated exposure control was utilized for the study. A dose lowering technique was utilized adhering to the principles of ALARA. MIP reconstructed images were created and reviewed. CONTRAST: Patient received 118 ml optiray 350 of IV contrast COMPARISON: No relevant prior studies available. FINDINGS: Right internal carotid artery: No acute findings. Intracranial segment is patent with no significant stenosis. No aneurysm. Right anterior cerebral artery: Unremarkable. No occlusion or significant stenosis. No aneurysm. Right middle cerebral artery: Unremarkable. No occlusion or significant stenosis. No aneurysm. Right posterior cerebral artery: Unremarkable. No occlusion or significant stenosis. No aneurysm. Right vertebral artery: Unremarkable as visualized. Left internal carotid artery: No acute findings. Intracranial segment is patent with no significant stenosis. No aneurysm. Left anterior cerebral artery: Unremarkable. No occlusion or significant stenosis. No aneurysm. Left middle cerebral artery: Unremarkable. No occlusion or significant stenosis. No aneurysm. Left posterior cerebral artery: Unremarkable. No occlusion or significant stenosis. No aneurysm. Left vertebral artery: Unremarkable as visualized. Basilar artery: Unremarkable. No occlusion or significant stenosis. No aneurysm. IMPRESSION: Normal head CTA. Communications: Call Doctor Stroke Electronically signed by: Freddy Lowry MD 01/04/23 21:29 PM Neck CTA 01/04/23 20:56 CR Exam(s): CTA NECK With Contrast IV Amt: 118 ml optiray 350 EXAM: CT Angiography Neck With Intravenous Contrast CLINICAL HISTORY: Reason for exam: neuro deficit, acute stroke suspected. TECHNIQUE: Routine carotid CT angiography protocol was performed with intravenous contrast. NASCET criteria using the distal ICAs for comparison were used for evaluation of stenoses. CTDI is 13.34 mGy and DLP is 463.95 mGy-cm. Automated exposure control was utilized for the study. A dose lowering technique was utilized adhering to the principles of ALARA. MIP reconstructed images were created and reviewed. CONTRAST: Patient received 118 ml optiray 350 of IV contrast COMPARISON: None. FINDINGS: VASCULATURE: Right common carotid artery: Unremarkable. No occlusion or significant stenosis. No dissection. Right internal carotid artery: Unremarkable. Extracranial segment is patent with no occlusion or significant stenosis. No dissection. Right external carotid artery: Unremarkable. No occlusion. Right vertebral artery: Unremarkable. No occlusion or significant stenosis. No dissection. Left common carotid artery: Unremarkable. No occlusion or significant stenosis. No dissection. Left internal carotid artery: Unremarkable. Extracranial segment is patent with no occlusion or significant stenosis. No dissection. Left external carotid artery: Unremarkable. No occlusion. Left vertebral artery: Unremarkable. No occlusion or significant stenosis. No dissection. NECK: Bones/joints: Unremarkable. Soft tissues: Unremarkable. Lung apices: Clear. CAROTID STENOSIS REFERENCE USING NASCET CRITERIA: % ICA stenosis = (1 - narrowest ICA diameter/diameter of distal cervical ICA) x 100. Mild - <50% stenosis. Moderate - 50-69% stenosis. Severe - 70-94% stenosis. Near occlusion - 95-99% stenosis. Occluded - 100% stenosis. IMPRESSION: Negative CTA neck. Communications: Call Doctor Stroke Electronically signed by: Freddy Lowry MD 01/04/23 21:33 PM I & O Totals 24 Hours 01/04/23 01/05/23 01/06/23 06:59 06:59 06:59 Intake Total 500 / 500 Output Total 775 / 775 Balance -275 / -275 Cumulative 01/04/23 20:41 thru 01/05/23 06:00 Intake Total 500 Output Total 775 Balance -275 RT Ventilator Mngmt (Last Documented) Ventilator Ordered Settings Respiratory Rate 24 01/05/23 07:05 Ventilator - PT Measurements Respiratory Rate 24 Coding Level of Care Code 92952 SUB INP/OBS CARE 2/35MIN Diagnoses tPA adm status 24 hr DIGITAL CONTENT COORDINATOR Z92.82 Atrial fibrillation, controlled I48.91 Chronic anticoagulation Z79.01 Anemia D64.9
[2023-01-05] MEDS ORDERED: DOCUSATE SODIUM 100 MG CAP PO PRN (08:08)
[2023-01-05] MEDS ORDERED: FLUTICASONE/VILANTEROL 200/25MCG 14 PUFFS/INHALER INH SCH (09:00)
[2023-01-05] MEDS ORDERED: FINASTERIDE 5 MG TAB PO SCH (09:00)
[2023-01-05] MEDS ORDERED: ATORVASTATIN 40 MG TAB PO SCH (09:00)
--- NOTE | 2023-01-05 09:17 | XRay Report ---
XR chest 1V portable CLINICAL HISTORY: low o2 TECHNIQUE: Single frontal radiograph of the chest was obtained. Comparison: Comparison is made to chest radiograph 10/07/2022 FINDINGS: Median sternotomy wires are unchanged. Cardiomegaly is noted. The aortic arch is calcified. Prominenc e and cephalization of the vasculature is seen. No evidence of pleural effusion or pneumothorax. IMPRESSION: Cardiomegaly and mild pulmonary edema. ACT 112: Negative or not required by law. Electronically signed by: Idris Jain M.D. 01/05/2023 9:16 AM
[2023-01-05 09:53] LABS: Estimated Average Glucose 108 mg/dl; Hemoglobin A1C 5.4 % (4.5-5.6)
[2023-01-05] MEDS: FLUTICASONE PROPIONATE NA SPR 16 GM BTL SCH (10:45)
[2023-01-05] MEDS: FLUTICASONE/VILANTEROL 200/25MCG 14 PUFFS/INHALER INH SCH (10:46)
[2023-01-05] MEDS: PSYLLIUM or GUAR GUM FIBER POWDER PACKET PO SCH (10:47)
[2023-01-05] MEDS: TAMSULOSIN HCL 0.4 MG CAP PO SCH (10:47)
[2023-01-05] MEDS: CETIRIZINE HCL 10 MG TABLET PO SCH (10:48)
[2023-01-05] MEDS: OXYBUTYNIN CHLORIDE XL 5 MG TABCR PO SCH (10:48)
[2023-01-05] MEDS: FINASTERIDE 5 MG TAB PO SCH (10:48)
[2023-01-05] MEDS: ATORVASTATIN 40 MG TAB PO SCH (10:48)
[2023-01-05] MEDS: allopurinoL 100 MG TAB PO SCH ×2 (10:48→20:09)
[2023-01-05] MEDS: ESCITALOPRAM OXALATE 10 MG TAB PO SCH (10:48)
[2023-01-05] MEDS: ICU Protocol for HYPERglycemia SCH ×2 (10:49→23:34)
[2023-01-05] MEDS: METOPROLOL SUCC 25MG EXT REL TAB PO SCH ×2 (10:49→20:08)
--- NOTE | 2023-01-05 11:27 | Electrocardiogram Report ---
Test Reason : Blood Pressure : / mmHG Vent. Rate : 093 BPM Atrial Rate : 113 BPM P-R Int : 000 ms QRS Dur : 090 ms QT Int : 392 ms P-R-T Axes : 000 049 055 degrees QTc Int : 487 ms Atrial fibrillation Prolonged QT Abnormal ECG When compared with ECG of 04-JAN-2023 21:10, (unconfirmed) No significant change was found Confirmed by Manuelito Young ([id number]) on 01/05/2023 11:26:56 AM Referred By: REFERRED SELF Confirmed By:Manuelito Young
--- NOTE | 2023-01-05 11:43 | Electrocardiogram Report ---
Test Reason : Blood Pressure : / mmHG Vent. Rate : 090 BPM Atrial Rate : 000 BPM P-R Int : 000 ms QRS Dur : 094 ms QT Int : 422 ms P-R-T Axes : 000 010 000 degrees QTc Int : 516 ms Atrial fibrillation Prolonged QT Abnormal ECG When compared with ECG of 08-OCT-2022 06:14, No significant change was found Confirmed by Manuelito Young ([id number]) on 01/05/2023 11:43:09 AM Referred By: REFERRED SELF Confirmed By:Manuelito Young
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
--- NOTE | 2023-01-05 14:36 | Hospitalist Progress Note ---
Date of Service January 05, 2023 Assessment & Plan (1) Cerebrovascular accident: Plan: 77yo M with a PMH of staph bacteremia with h/o endocarditis s/p bioprosthetic mitral valve [place] [facility] -on lifelong cefadroxil suppression treatment, paroxysmal A-fib and PE/DVT on Coumadin, aortic valve stenosis, hypertension, BPH, embolic CVA, depression, asthma, chronic diastolic heart failure, GERD, past tobacco abuse, mood disorder, chronic anemia [baseline hemoglobin of 10] presented to the ED 01/04 with complaint of left-sided facial weakness/slurred speech/lower extremity weakness. Patient reported few hours before [employer] he felt lightheaded causing him to fall to the ground from a chair and found him on the floor unable to get up. He is being managed for the following: Concern for stroke, possible embolic Subtherapeutic INR/history of A-fib: A-fib likely to remain chronic given L atrial enlargement on 2D echo secondary to MV prosthesis, beta-johnnie was cautiously resumed last admission per cardiology. Patient presented with left-sided weakness/left facial droop/slurred speech [facility] evaluated, status post TNK administration at 2150 hrs. on 01/04/2023 Subtherapeutic INR possibly secondary to outpatient miscommunication with PCP/[facility] Coumadin clinic and hesitancy from patient/his family to reach out (per Pt's statement) to Coumadin clinic to ask further questions why they stopped coming to his house. (Patient discharged from [facility] Coumadin clinic last month due to information that patient was going to switched back to previous Eliquis Rx from Coumadin as per outpatient records. Patient PCP later advised patient to hold off on Eliquis and to continue Coumadin. Per PCP note from December 11, 2022 --->> " patient is taking warfarin, not Eliquis." " Warfarin 10 mg as directed. Follow-up with anticoagulation clinic". Last outpatient INR check was in October 2022.) Echo with EF of 45 to 50%, left ventricular systolic function is mildly reduced, severe mitral annular calcification, mild to moderate mitral stenosis, interatrial septum is intact. 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 MRI brain, final read pending Facial droop, slurred speech, lower extremity weakness has improved LDL 35, continue with home atorvastatin. A1c of 5.4. Repeat CT head at 10 PM today, restart warfarin if no bleed and Start heparin drip until therapeutic with Coumadin. Currently in ICU monitoring post tPA. Neurochecks. Notify [facility] Coumadin clinic prior to discharge for close follow-up. Consulted, await recommendation ICU evaluated, appreciate recommendation. PT/OT, speech eval. chronic diastolic heart failure (EF 55%, TTE 2022), some congestion on CXR, patient on room air. Has history of noncompliance with Lasix [in his last admission there was weight gain of 20 pounds at presentation]. Continue home medications, monitor clinically for volume overload. hx PE DVT on Coumadin: Anticoagulation to be started after CT head today evening. 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 Continue atorvastatin asthma, stable, At baseline. Cont. Symbicort BID, PRN albuterol inhaler, Singulair hx GERD status post surgery chronic anemia, hemoglobin at baseline past tobacco abuse. 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 Continue anticoagulation [see above], statin. Fall precautions, ambulates with walker DVT prophylaxis. SCDs for now post TNK Full code Patient Ms. Eboni Reardon, [id number]. Updated at bedside. Total of 85 minutes spent in the reviewing and writing chart/placing orders/following up on recommendation from specialist/reviewing imaging/updating family members in this complex patient. Text document was generated using [employer] recognition software. It may contain grammatical or spelling errors. Kindly contact undersigned for clarification of any documentation item in question. Admission and Anticipated Discharge Date Admission Date: January 04, 2023 Subjective Patient seen and examined at bedside as a follow-up of cerebrovascular accident on the background of subtherapeutic INR. Patient was lying semiupright in bed, on room air, NAD, reports improvement in his left facial droop, reports improvement in his his speech. Patient denies any headache or visual changes. Patient denies any blood in the urine or stool. Patient reports eating okay. Patient reports being back to baseline. Patient has his family members including his at bedside. was clearly very upset and was asking multiple questions in agitated voice before I could complete my conversation and examination with the patient. With me asking any standard medical questions to the patient, would reply from the bedside that I should look into his medical records and everything is in his medical records - "why are you asking him questions, he is not a doctor nor am I". She was upset again and again why he is being asked those questions that I can look in the medical records. This delayed my examination and conversation with the patient and made it difficult for me. I understand her frustrations but since it was interfering my evaluation/assessment of the patient. After multiple interruptions from her side, I calmly asked the patient's to stay calm and let me finish my conversation with the patient and let me examine him so that I can answer her questions more appropriately at the end of my examination. Still I got few interruptions before I was able to complete my examination. Patient has multiple questions surrounding anticoagulation and was asking when he can be discharged from the hospital. I thought it would be more appropriate for her to understand what is going on with him, I explained his conditions in detail and the role of anticoagulation therapy to prevent his condition from happening again and need for him to be fully anticoagulated going forward and the need to closely follow-up with Coumadin clinic upon discharge, more frequently for the first 2 to 3 weeks and then per recommendation from Coumadin clinic. Also need for neurology evaluation while in here. Patient's stated that she expected reach out from Coumadin clinic and expressed frustration why they stopped coming to her home to check on his coumadin level. She stated that she did not want to be rude and never called the Coumadin clinic herself. I explained to her it is never considered being rude or inappropriate to ask medical questions and it is advisable to ask respective providers respective medical questions if and when confusion arises. She seemed to understand this now. I discussed with her that patient received TNKase for his stroke per recommendation from [facility] neurologist, he will need repeat CT scan of the head in 24 hours, then will need to resume his anticoagulation and make sure he becomes therapeutic and possibly he will need bridging with heparin while he is subtherapeutic with Coumadin. Also reemphasized that they need to closely coordinate with the Coumadin clinic on discharge for ongoing monitoring of his Coumadin dose levels. Patient is stated that she had some medical need tomorrow and she will not be able to be here tomorrow, would like to speak with me during the round day after tomorrow in the morning. I welcomed her proposition. More than 35 minutes were spent only for updating patient's as she had same questions in various format again and again and was clearly upset throughout the most of the conversation. At the end of my conversation, she thanked me for my update and seemed appreciative. Physical Exam Physical Exam: GENERAL: Alert and oriented x3. NAD, on RA. Obese class III. HEENT: Alopecia, no pallor, no icterus. Pupils equal, round and reactive to light. Oral mucosa moist. NECK: No JVD, no neck masses. HEART: S1 and S2 heard. irregular rate and rhythm. No murmur, no gallop. RESPIRATORY SYSTEM: Normal AP diameter. No accessory muscle use. No wheezing, no crackles. ABDOMEN: Soft, bowel sounds present, nontender, no distention. CENTRAL NERVOUS SYSTEM: No facial droop. Speech is clear. Obeys simple commands. Moves extremities. Power 5/5 all extremities, good nut culler strength bilaterally. EXTREMITIES: 1-2+ edema, no erythema seen. Results & Data Results & Data Vital Signs (Past 12 Hours) Vital Signs Temp Pulse Pulse Resp BP BP Pulse Ox 01/05/23 13:12 98 H 01/05/23 13:05 92 H 20 102/76 93 01/05/23 12:05 95 H 17 123/85 95 01/05/23 11:05 113 H 22 104/84 93 01/05/23 10:05 95 H 135/95 97 01/05/23 09:05 106 H 16 140/102 H 97 01/05/23 08:05 93 H 21 122/94 97 01/05/23 08:00 99 H 01/05/23 07:05 36.4 C L 91 H 24 116/89 97 01/05/23 06:35 36.6 C 99 H 22 122/94 94 01/05/23 06:05 36.7 C 96 H 19 131/73 97 01/05/23 05:35 36.7 C 95 H 20 111/85 97 01/05/23 05:05 36.4 C L 108 H 23 90/61 L 96 01/05/23 04:35 36.4 C L 88 23 118/77 96 01/05/23 04:05 36.6 C 82 26 H 96/79 L 97 01/05/23 03:35 36.6 C 91 H 27 H 94/75 L 95 01/05/23 03:15 91 H 19 96 01/05/23 03:15 99/77 L 01/05/23 03:06 110/82 01/05/23 03:06 97 H 20 98 01/05/23 03:00 94 H 21 97 01/05/23 03:00 115/81 01/05/23 02:50 95 H 01/05/23 03:05 36.6 C 94 H 21 110/82 98 01/05/23 02:45 95 H 97 01/05/23 02:45 114/76 01/05/23 02:30 95 H 96 01/05/23 02:30 106/76 01/05/23 02:15 88 01/05/23 02:15 107/86 01/05/23 02:00 98 H 19 97 01/05/23 02:00 111/69 01/05/23 02:35 36.6 C 102 H 24 106/76 97 01/05/23 02:05 36.6 C 86 18 111/69 97 O2 Del Method O2 Flow Rate 01/05/23 13:12 01/05/23 13:05 Room Air 01/05/23 12:05 Room Air 01/05/23 11:05 Room Air 01/05/23 10:05 Room Air 01/05/23 09:05 Room Air 01/05/23 08:05 Nasal Cannula 1 01/05/23 08:00 01/05/23 07:05 Nasal Cannula 1 01/05/23 06:35 Nasal Cannula 1 01/05/23 06:05 Nasal Cannula 1 01/05/23 05:35 Nasal Cannula 1 01/05/23 05:05 Nasal Cannula 1 01/05/23 04:35 Nasal Cannula 1 01/05/23 04:05 Nasal Cannula 1 01/05/23 03:35 Nasal Cannula 1 01/05/23 03:15 01/05/23 03:15 01/05/23 03:06 01/05/23 03:06 01/05/23 03:00 01/05/23 03:00 01/05/23 02:50 01/05/23 03:05 Nasal Cannula 1 01/05/23 02:45 01/05/23 02:45 01/05/23 02:30 01/05/23 02:30 01/05/23 02:15 01/05/23 02:15 01/05/23 02:00 01/05/23 02:00 01/05/23 02:35 Nasal Cannula 1 01/05/23 02:05 Nasal Cannula 1
--- NOTE | 2023-01-05 17:50 | Magnetic Resonance Report ---
MR brain wo con CLINICAL HISTORY: cva TECHNIQUE: Multiplanar and multisequence MR images of the brain were obtained without intravenous con trast. Comparison: None available at the time of this dictation. FINDINGS: No abnormal restricted diffusion is identified. Foci of T2 and FLAIR hyperintensity are noted in the paraventricular areas consistent with chronic small vessel ischemic disease. Ex vacuo ventriculomegal y and sulcal enlargement is noted compatible with diffuse volume loss. Focal encephalomalacia is seen in the right parietal lobe compatible with old stroke. There is no mass effect or midline shift. The re is no evidence of acute intraparenchymal hemorrhage. No extra axial fluid collections are seen. Th e corpus callosum, pituitary gland, and cerebellar tonsils appear grossly unremarkable. Flow voids of the major intracranial arterial vessels are identified. The imaged portions of the para nasal sinuses, mastoid air cells, and orbits are unremarkable. IMPRESSION: No evidence of acute infarct. Chronic volume loss and encephalomalacia is seen above. ACT 112: Negative or not required by law. Electronically signed by: Idris Jain M.D. 01/05/2023 5:48 PM
[2023-01-05] MEDS: MONTELUKAST SODIUM 10 MG TABLET PO SCH (20:08)
[2023-01-05] MEDS ORDERED: MONTELUKAST SODIUM 10 MG TABLET PO SCH (21:00)
--- NOTE | 2023-01-05 23:45 | CT Scan Report ---
Exam(s): CT HEAD Without Contrast EXAM: CT Head Without Intravenous Contrast CLINICAL HISTORY: Reason for exam: at 10 pm, f/u tnkase therapy. TECHNIQUE: Axial computed tomography images of the head/brain without intravenous contrast. Automated exposure control was utilized for the study. A dose lowering technique was utilized adhering to the principles of ALARA. COMPARISON: Head CT 01/04/2023 FINDINGS: Brain: Global parenchymal atrophy and chronic infarct of the right posterior temporal lobe. Ventricles: Unremarkable. Bones/joints: Unremarkable. No fracture. Soft tissues: No intracranial hemorrhage, mass-effect, or edema. Sinuses: No acute sinusitis. Mastoid air cells: Unremarkable as visualized. IMPRESSION: 1. No acute intracranial abnormality. 2. Global parenchymal atrophy and chronic infarct of the right posterior temporal lobe. Electronically signed by: Velasquez Nicole MD 01/05/23 23:44 PM
[2023-01-06 06:06] LABS: Basophils # (auto) 0.04 K/uL (0-0.2); Basophils % (auto) 0.6 %; Eosinophils # (auto) 0.45 K/uL (0-0.50); Hemoglobin 10.7 g/dl (14.0-18.0); Immature Granulocytes # (auto) 0.02 K/uL (0.01-0.20); Immature Granulocytes % (auto) 0.3 %; Lymphocytes # (auto) 1.46 K/uL (1.2-3.4); Lymphocytes % (auto) 22.8 %; Mean Corpuscular Hgb Conc 32.4 g/dL (32.0-36.0); Mean Corpuscular Volume 83.3 fL (80.0-100.0); Mean Platelet Volume 10.1 fL (9.4-12.4); Monocytes # (auto) 0.62 K/uL (0.11-0.59); Monocytes % (auto) 9.7 %; Neutrophils % (auto) 59.6 %; Platelet Count 133 K/uL (130-400); RDW Coefficient of Variation 22.6 % (11.5-14.5); RDW Standard Deviation 67.7 fL (36.4-46.3); Red Blood Count 3.96 M/uL (4.70-6.10); White Blood Count 6.39 K/ul (4.8-10.8)
[2023-01-06 06:23] LABS: Calcium 8.9 mg/dl (8.6-10.3); Creatinine Clr Calc Pharmacy 79.1 ml/min; Est GFR (African American) 97.2 ml/min; Est GFR (Non-African American) 83.9 ml/min; Phosphorus 3.3 mg/dl (2.5-4.9); Potassium 3.9 mmol/L (3.5-5.1)
[2023-01-06 06:25] LABS: INR 1.3 (0.9-1.1); Prothrombin Time 14.5 Seconds (9.0-12.0)
[2023-01-06 06:49] LABS: Polychromasia 1+; Rouleaux 1+
[2023-01-06] MEDS: ICU Protocol for HYPERglycemia SCH ×4 (07:07→20:56)
[2023-01-06] MEDS ORDERED: Heparin IV Adult Wt-Based Low-Dose *NO* Bolus Protocol IV SCH (07:37)
[2023-01-06] MEDS ORDERED: WARFARIN SOD 10 MG TAB PO ONE (07:45)
[2023-01-06] MEDS: allopurinoL 100 MG TAB PO SCH ×2 (08:35→21:02)
[2023-01-06] MEDS: METOPROLOL SUCC 25MG EXT REL TAB PO SCH ×2 (08:35→21:03)
[2023-01-06] MEDS: PSYLLIUM or GUAR GUM FIBER POWDER PACKET PO SCH (08:35)
[2023-01-06] MEDS: TAMSULOSIN HCL 0.4 MG CAP PO SCH (08:36)
[2023-01-06] MEDS: FINASTERIDE 5 MG TAB PO SCH (08:36)
[2023-01-06] MEDS: ATORVASTATIN 40 MG TAB PO SCH (08:36)
[2023-01-06] MEDS: OXYBUTYNIN CHLORIDE XL 5 MG TABCR PO SCH (08:36)
[2023-01-06] MEDS: CETIRIZINE HCL 10 MG TABLET PO SCH (08:36)
[2023-01-06] MEDS: FLUTICASONE PROPIONATE NA SPR 16 GM BTL SCH (08:36)
[2023-01-06] MEDS: ESCITALOPRAM OXALATE 10 MG TAB PO SCH (08:36)
[2023-01-06] MEDS: FLUTICASONE/VILANTEROL 200/25MCG 14 PUFFS/INHALER INH SCH (08:37)
[2023-01-06] MEDS: HEPARIN SODIUM/DEXTROSE 25,000 UNITS/500 ML BAG IV SCH (08:39)
[2023-01-06] MEDS ORDERED: cephALEXin 500 MG CAP PO SCH ×2 (11:45→14:00)
[2023-01-06 15:05] LABS: Partial Thromboplastin Ratio 1.1; Partial Thromboplastin Time 31.2 Seconds (21.0-31.0)
[2023-01-06] MEDS ORDERED: HEPARIN SOD (PORCINE) 1000 UNIT/ML IV ONE (16:15)
--- NOTE | 2023-01-06 16:26 | Hospitalist Progress Note ---
Date of Service January 06, 2023 Assessment & Plan (1) Cerebrovascular accident: Plan: 77yo M with a PMH of staph bacteremia with h/o endocarditis s/p bioprosthetic mitral valve replacement at [facility] in June 2022 -on lifelong cefadroxil suppression treatment, paroxysmal A-fib and PE/DVT on Coumadin, aortic valve stenosis, hypertension, BPH, embolic CVA, depression, asthma, chronic diastolic heart failure, GERD, past tobacco abuse, mood disorder, chronic anemia [baseline hemoglobin of 10] presented to the ED 01/04 with complaint of left-sided facial weakness/slurred speech/lower extremity weakness. 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 He is being managed for the following: Concern for stroke, possible embolic Subtherapeutic INR/history of A-fib: A-fib likely to remain chronic given L atrial enlargement on 2D echo secondary to MV prosthesis, beta-johnnie was cautiously resumed last admission per cardiology. Patient presented with left-sided weakness/left facial droop/slurred speech [place] neurology evaluated, status post TNK administration at 2150 hrs. on 01/04/2023 Subtherapeutic INR possibly secondary to outpatient miscommunication with PCP/[facility] Coumadin clinic and hesitancy from patient/his family to reach out (per Pt's statement) to Coumadin clinic to ask further questions why they stopped coming to his house. (Patient discharged from [facility] Coumadin clinic last month due to information that patient was going to switched back to previous Eliquis Rx from Coumadin as per outpatient records. Patient PCP later advised patient to hold off on Eliquis and to continue Coumadin. Per PCP note from December 11, 2022 --->> " patient is taking warfarin, not Eliquis." " Warfarin 10 mg as directed. Follow-up with anticoagulation clinic". Last outpatient INR check was in October 2022.) Echo with EF of 45 to 50%, left ventricular systolic function is mildly reduced, severe mitral annular calcification, mild to moderate mitral stenosis, interatrial septum is intact. Bubble study suggestive of an extracardiac [id number]-ob-[id number] shunt such as a pulmonary arteriovenous malformation. MRI brain - no evidence of acute infarct. 24-hour CT head check-no hemorrhage/no new acute findings. Facial droop, slurred speech, lower extremity weakness has improved. Today patient reports that he is not sure whether or not he had any weakness in his extremities. LDL 35, continue with home atorvastatin. A1c of 5.4. Low-dose heparin drip started, Coumadin restarted, monitor PT/INR Downgrade to PCU telemetry. Neurochecks. Notify [facility] Coumadin clinic prior to discharge for close follow-up. PT/OT, speech eval. chronic diastolic heart failure (EF 55%, TTE 2022), some congestion on CXR, patient on room air. Has history of noncompliance with Lasix [in his last admission there was weight gain of 20 pounds at presentation]. Continue home medications, monitor clinically for volume overload. 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 Continue atorvastatin asthma, stable, At baseline. Cont. Symbicort BID, PRN albuterol inhaler, Singulair hx GERD status post surgery chronic anemia, hemoglobin at baseline past tobacco abuse. 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 Continue anticoagulation [see above], statin. Fall precautions, ambulates with walker DVT prophylaxis. Heparin drip/Coumadin Full code Patient Ms. Eboni Reardon, [phone]. Updated at bedside 01/05. Text document was generated using [employer] voice recognition software. It may contain grammatical or spelling errors. Kindly contact undersigned for clarification of any documentation item in question. Admission and Anticipated Discharge Date Admission Date: January 04, 2023 Subjective Patient seen and examined at bedside as a follow-up of cerebrovascular accident on the background of subtherapeutic INR. Patient was lying semiupright in bed, on room air, NAD, reports no new complaints overnight. Patient denies any headache or visual changes. Patient denies any blood in the urine or stool. Patient reports eating okay. Patient reports being back to baseline. CT head repeated yesterday evening with no new acute findings or hemorrhage. Physical Exam Physical Exam: GENERAL: Alert and oriented x3. NAD, on RA. Obese class III. HEENT: Alopecia, no pallor, no icterus. Pupils equal, round and reactive to light. Oral mucosa moist. NECK: No JVD, no neck masses. HEART: S1 and S2 heard. irregular rate and rhythm. No murmur, no gallop. RESPIRATORY SYSTEM: Normal AP diameter. No accessory muscle use. No wheezing, no crackles. ABDOMEN: Soft, bowel sounds present, nontender, no distention. CENTRAL NERVOUS SYSTEM: No facial droop. Speech is clear. Obeys simple commands. Moves extremities. 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 EXTREMITIES: Trace/1+ edema, no erythema seen. Results & Data Results & Data Vital Signs (Past 12 Hours) Vital Signs Temp Pulse Pulse Resp BP BP Pulse Ox 01/06/23 15:38 37 C 84 18 126/87 91 01/06/23 12:00 86 22 01/06/23 11:00 85 23 94 01/06/23 11:00 114/86 01/06/23 10:00 85 20 93 01/06/23 10:00 95/69 L 01/06/23 09:27 110/80 01/06/23 09:23 86 14 01/06/23 09:00 81 21 89 L 01/06/23 09:00 95/59 L 01/06/23 08:28 99 H 25 H 01/06/23 08:27 87 17 93 01/06/23 08:27 103/72 01/06/23 08:22 87 26 H 95 01/06/23 09:07 86/62 L 01/06/23 09:06 103/72 01/06/23 09:00 01/06/23 09:05 100/73 01/06/23 08:00 89 01/06/23 07:00 81 25 H 96 01/06/23 06:45 73 21 97 01/06/23 06:30 89 25 H 95 01/06/23 06:20 84 21 97 O2 Del Method 01/06/23 15:38 Room Air 01/06/23 12:00 01/06/23 11:00 01/06/23 11:00 01/06/23 10:00 01/06/23 10:00 01/06/23 09:27 01/06/23 09:23 01/06/23 09:00 01/06/23 09:00 01/06/23 08:28 01/06/23 08:27 01/06/23 08:27 01/06/23 08:22 01/06/23 09:07 01/06/23 09:06 01/06/23 09:00 Room Air 01/06/23 09:05 01/06/23 08:00 01/06/23 07:00 01/06/23 06:45 01/06/23 06:30 01/06/23 06:20
[2023-01-06] MEDS: cephALEXin 500 MG CAP PO SCH ×2 (17:47→21:04)
[2023-01-06] MEDS: MONTELUKAST SODIUM 10 MG TABLET PO SCH (21:02)
[2023-01-06] MEDS: FUROSEMIDE 40 MG TAB PO SCH (21:03)
[2023-01-06 23:49] LABS: Partial Thromboplastin Ratio 1.6
[2023-01-06 23:52] LABS: Partial Thromboplastin Time 46.1 Seconds (21.0-31.0)
[2023-01-07 06:16] LABS: Basophils # (auto) 0.03 K/uL (0-0.2); Basophils % (auto) 0.5 %; Eosinophils # (auto) 0.49 K/uL (0-0.50); Eosinophils % (auto) 8.1 %; Hematocrit (blood only) 33.6 % (42.0-52.0); Hemoglobin 10.7 g/dl (14.0-18.0); Immature Granulocytes # (auto) 0.02 K/uL (0.01-0.20); Immature Granulocytes % (auto) 0.3 %; Lymphocytes # (auto) 1.58 K/uL (1.2-3.4); Lymphocytes % (auto) 26.1 %; Mean Corpuscular Hgb Conc 31.8 g/dL (32.0-36.0); Mean Corpuscular Volume 84.8 fL (80.0-100.0); Mean Platelet Volume 9.9 fL (9.4-12.4); Monocytes # (auto) 0.58 K/uL (0.11-0.59); Monocytes % (auto) 9.6 %; Neutrophils # (auto) 3.35 K/uL (1.40-6.50); Neutrophils % (auto) 55.4 %; Platelet Count 143 K/uL (130-400); RDW Coefficient of Variation 22.5 % (11.5-14.5); RDW Standard Deviation 69.7 fL (36.4-46.3); Red Blood Count 3.96 M/uL (4.70-6.10); White Blood Count 6.05 K/ul (4.8-10.8)
[2023-01-07 06:34] LABS: Creatinine Clr Calc Pharmacy 73.4 ml/min; Est GFR (African American) 95.4 ml/min; Est GFR (Non-African American) 82.3 ml/min; Magnesium 1.8 mg/dl (1.7-2.4); Phosphorus 3.6 mg/dl (2.5-4.9); Potassium 3.5 mmol/L (3.5-5.1)
[2023-01-07 06:38] LABS: Anisocytosis Present; Polychromasia 1+
[2023-01-07 06:56] LABS: INR 1.3 (0.9-1.1); Partial Thromboplastin Ratio 1.6; Prothrombin Time 14.3 Seconds (9.0-12.0)
[2023-01-07 07:00] LABS: Partial Thromboplastin Time 44.7 Seconds (21.0-31.0)
[2023-01-07] MEDS: FLUTICASONE/VILANTEROL 200/25MCG 14 PUFFS/INHALER INH SCH (08:28)
[2023-01-07] MEDS: FLUTICASONE PROPIONATE NA SPR 16 GM BTL SCH (08:29)
[2023-01-07] MEDS: ATORVASTATIN 40 MG TAB PO SCH (08:29)
[2023-01-07] MEDS: METOPROLOL SUCC 25MG EXT REL TAB PO SCH ×2 (08:29→20:53)
[2023-01-07] MEDS: cephALEXin 500 MG CAP PO SCH ×4 (08:32→20:50)
[2023-01-07] MEDS: CETIRIZINE HCL 10 MG TABLET PO SCH (08:33)
[2023-01-07] MEDS: POTASSIUM CHLORIDE 10 MEQ TABCR PO SCH (08:33)
[2023-01-07] MEDS: SPIRONOLACTONE 25 MG TAB PO SCH (08:34)
[2023-01-07] MEDS: allopurinoL 100 MG TAB PO SCH ×2 (08:34→20:52)
[2023-01-07] MEDS: ESCITALOPRAM OXALATE 10 MG TAB PO SCH (08:34)
[2023-01-07] MEDS: OXYBUTYNIN CHLORIDE XL 5 MG TABCR PO SCH (08:35)
[2023-01-07] MEDS: PSYLLIUM or GUAR GUM FIBER POWDER PACKET PO SCH (08:36)
[2023-01-07] MEDS: TAMSULOSIN HCL 0.4 MG CAP PO SCH (08:36)
[2023-01-07] MEDS: FINASTERIDE 5 MG TAB PO SCH (08:36)
[2023-01-07] MEDS: FUROSEMIDE 40 MG TAB PO SCH ×2 (08:36→20:51)
[2023-01-07] MEDS ORDERED: WARFARIN SOD 2.5 MG TAB PO STA (09:19)
[2023-01-07] MEDS: HEPARIN SODIUM/DEXTROSE 25,000 UNITS/500 ML BAG IV SCH (09:23)
--- NOTE | 2023-01-07 16:10 | Hospitalist Progress Note ---
Date of Service January 07, 2023 Assessment & Plan (1) Cerebrovascular accident: Plan: 77yo M with a PMH of staph bacteremia with h/o endocarditis s/p bioprosthetic mitral valve replacement at [facility] [place] in June 2022 -on lifelong cefadroxil suppression treatment, paroxysmal A-fib and PE/DVT on Coumadin, aortic valve stenosis, hypertension, BPH, embolic CVA, depression, asthma, chronic diastolic heart failure, GERD, past tobacco abuse, mood disorder, chronic anemia [baseline hemoglobin of 10] presented to the ED 01/04 with complaint of left-sided facial weakness/slurred speech/lower extremity weakness. Patient reported few hours before [employer] he felt lightheaded causing him to fall to the ground from a chair and found him on the floor unable to get up. He is being managed for the following: Concern for stroke, possible embolic Subtherapeutic INR/history of A-fib: A-fib likely to remain chronic given L atrial enlargement on 2D echo secondary to MV prosthesis, beta-johnnie was cautiously resumed last admission per cardiology. Patient presented with left-sided weakness/left facial droop/slurred speech [place] neurology evaluated, status post TNK administration at 2150 hrs. on 01/04/2023 Subtherapeutic INR possibly secondary to outpatient miscommunication with PCP/[facility] Coumadin clinic and hesitancy from patient/his family to reach out (per Pt's statement) to Coumadin clinic to ask further questions why they stopped coming to his house. (Patient discharged from [facility] Coumadin clinic last month due to information that patient was going to switched back to previous Eliquis Rx from Coumadin as per outpatient records. Patient PCP later advised patient to hold off on Eliquis and to continue Coumadin. Per PCP note from December 11, 2022 --->> " patient is taking warfarin, not Eliquis." " Warfarin 10 mg as directed. Follow-up with anticoagulation clinic". Last outpatient INR check was in October 2022.) Echo with EF of 45 to 50%, left ventricular systolic function is mildly reduced, severe mitral annular calcification, mild to moderate mitral stenosis, interatrial septum is intact. Bubble study suggestive of an extracardiac oiflg-eq-goux shunt such as a pulmonary arteriovenous malformation. MRI brain - no evidence of acute infarct. 24-hour CT head check-no hemorrhage/no new acute findings. Facial droop, slurred speech, lower extremity weakness has improved. Later in the hospital stay, patient reports that he is not sure whether or not he had any weakness in his extremities. LDL 35, continue with home atorvastatin. A1c of 5.4. Low-dose heparin drip started, Coumadin restarted 01/06, additional dose 01/07, monitor PT/INR C/w CU telemetry. Neurochecks. Notify [facility] Coumadin clinic prior to discharge for close follow-up. PT/OT, speech eval. Neuro evaled, EEG as OP, f/u Neuro in 8 weeks. chronic diastolic heart failure (EF 55%, TTE 2022), some congestion on CXR, patient on room air. Has history of noncompliance with Lasix [in his last admission there was weight gain of 20 pounds at presentation]. Continue home medications, monitor clinically for volume overload. 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 Continue atorvastatin asthma, stable, At baseline. Cont. Symbicort BID, PRN albuterol inhaler, Singulair hx GERD status post surgery chronic anemia, hemoglobin at baseline past tobacco abuse. 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 Continue anticoagulation [see above], statin. Fall precautions, ambulates with walker DVT prophylaxis. Heparin drip/Coumadin Full code Patient Ms. Eboni Reardon, [phone]. Updated at bedside 01/05. Updated via phone 01/07, was very much appreciative. Text document was generated using [employer] voice recognition software. It may contain grammatical or spelling errors. Kindly contact undersigned for clarification of any documentation item in question. Admission and Anticipated Discharge Date Admission Date: January 04, 2023 Subjective Patient seen and examined at bedside as a follow-up of cerebrovascular accident on the background of subtherapeutic INR. Patient was sitting up in chair, on room air, NAD, reports no new complaints overnight. Patient denies any headache or visual changes. Patient denies any blood in the urine or stool. Patient reports eating okay. Patient reports being back to baseline. Patient explained in detail the plans of care going forward and need for bridging with heparin until we achieve therapeutic INR. Due to noncompliance history and failing to follow-up, it would not be safe to discharge him on Lovenox subcu and Coumadin . Physical Exam Physical Exam: GENERAL: Alert and oriented x3. NAD, on RA. Obese class III. HEENT: Alopecia, no pallor, no icterus. Pupils equal, round and reactive to light. Oral mucosa moist. NECK: No JVD, no neck masses. HEART: S1 and S2 heard. irregular rate and rhythm. No murmur, no gallop. RESPIRATORY SYSTEM: Normal AP diameter. No accessory muscle use. No wheezing, no crackles. ABDOMEN: Soft, bowel sounds present, nontender, no distention. CENTRAL NERVOUS SYSTEM: No facial droop. Speech is clear. Obeys simple commands. Moves extremities. Power 5/5 all extremities, good nutrition and dietetics instructor strength bilaterally. EXTREMITIES: Trace/1+ edema, no erythema seen. Results & Data Results & Data Vital Signs (Past 12 Hours) Vital Signs Temp Pulse Resp BP BP Pulse Ox O2 Del Method 01/07/23 15:56 36.9 C 84 19 129/93 92 Room Air 01/07/23 11:04 36.6 C 97 H 18 105/73 93 Room Air 01/07/23 08:00 Room Air 01/07/23 07:07 36.6 C 78 20 96/64 L 94 Room Air
[2023-01-07] MEDS: MONTELUKAST SODIUM 10 MG TABLET PO SCH (20:51)
[2023-01-08 06:50] LABS: INR 1.2 (0.9-1.1); Partial Thromboplastin Ratio 1.5; Prothrombin Time 13.4 Seconds (9.0-12.0)
[2023-01-08 07:06] LABS: Partial Thromboplastin Time 41.6 Seconds (21.0-31.0)
[2023-01-08 07:53] LABS: Marijuana Quant, GCMS Urine 113 ng/mL (<5)
[2023-01-08] MEDS: FLUTICASONE PROPIONATE NA SPR 16 GM BTL SCH (08:28)
[2023-01-08] MEDS: FLUTICASONE/VILANTEROL 200/25MCG 14 PUFFS/INHALER INH SCH (08:29)
[2023-01-08] MEDS: PSYLLIUM or GUAR GUM FIBER POWDER PACKET PO SCH (08:29)
[2023-01-08] MEDS: ATORVASTATIN 40 MG TAB PO SCH (08:29)
[2023-01-08] MEDS: cephALEXin 500 MG CAP PO SCH ×4 (08:29→21:19)
[2023-01-08] MEDS: METOPROLOL SUCC 25MG EXT REL TAB PO SCH ×2 (08:29→21:19)
[2023-01-08] MEDS: POTASSIUM CHLORIDE 10 MEQ TABCR PO SCH (08:30)
[2023-01-08] MEDS: FINASTERIDE 5 MG TAB PO SCH (08:30)
[2023-01-08] MEDS: allopurinoL 100 MG TAB PO SCH ×2 (08:30→21:19)
[2023-01-08] MEDS: OXYBUTYNIN CHLORIDE XL 5 MG TABCR PO SCH (08:30)
[2023-01-08] MEDS: TAMSULOSIN HCL 0.4 MG CAP PO SCH (08:30)
[2023-01-08] MEDS: CETIRIZINE HCL 10 MG TABLET PO SCH (08:30)
[2023-01-08] MEDS: ESCITALOPRAM OXALATE 10 MG TAB PO SCH (08:32)
[2023-01-08] MEDS: SPIRONOLACTONE 25 MG TAB PO SCH (08:32)
[2023-01-08] MEDS: FUROSEMIDE 40 MG TAB PO SCH ×2 (08:32→21:19)
[2023-01-08] MEDS ORDERED: WARFARIN SOD 5 MG TAB PO ONE (09:17)
[2023-01-08] MEDS: HEPARIN SODIUM/DEXTROSE 25,000 UNITS/500 ML BAG IV SCH (11:49)
--- NOTE | 2023-01-08 15:43 | Hospitalist Progress Note ---
Date of Service January 08, 2023 Assessment & Plan (1) Cerebrovascular accident: Plan: 77yo M with a PMH of staph bacteremia with h/o endocarditis s/p bioprosthetic mitral valve replacement at [facility] in June 2022 -on lifelong cefadroxil suppression treatment, paroxysmal A-fib and PE/DVT on Coumadin, aortic valve stenosis, hypertension, BPH, embolic CVA, depression, asthma, chronic diastolic heart failure, GERD, past tobacco abuse, mood disorder, chronic anemia [baseline hemoglobin of 10] presented to the ED 01/04 with complaint of left-sided facial weakness/slurred speech/lower extremity weakness. 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 He is being managed for the following: Concern for stroke, possible embolic Subtherapeutic INR/history of A-fib: A-fib likely to remain chronic given L atrial enlargement on 2D echo secondary to MV prosthesis, beta-johnnie was cautiously resumed last admission per cardiology. Patient presented with left-sided weakness/left facial droop/slurred speech [place] neurology evaluated, status post TNK administration at 2150 hrs. on 01/04/2023 Subtherapeutic INR possibly secondary to outpatient miscommunication with PCP/[facility] Coumadin clinic and hesitancy from patient/his family to reach out (per Pt's statement) to Coumadin clinic to ask further questions why they stopped coming to his house. (Patient discharged from [facility] Coumadin clinic last month due to information that patient was going to switched back to previous Eliquis Rx from Coumadin as per outpatient records. Patient PCP later advised patient to hold off on Eliquis and to continue Coumadin. Per PCP note from December 11, 2022 --->> " patient is taking warfarin, not Eliquis." " Warfarin 10 mg as directed. Follow-up with anticoagulation clinic". Last outpatient INR check was in October 2022.) Echo with EF of 45 to 50%, left ventricular systolic function is mildly reduced, severe mitral annular calcification, mild to moderate mitral stenosis, interatrial septum is intact. Bubble study suggestive of an extracardiac ingrc-bs-perx shunt such as a pulmonary arteriovenous malformation. MRI brain - no evidence of acute infarct. 24-hour CT head check-no hemorrhage/no new acute findings. Facial droop, slurred speech, lower extremity weakness has improved. Later in the hospital stay, patient reports that he is not sure whether or not he had any weakness in his extremities. LDL 35, continue with home atorvastatin. A1c of 5.4. Low-dose heparin drip started, Coumadin restarted 01/06, additional dose 01/07 [2.5 Mg] and 01/08 [5 Mg], monitor PT/INR C/w CU telemetry. Neurochecks. Notify [facility] Coumadin clinic prior to discharge for close follow-up. PT/OT, speech eval. Neuro evaled, EEG as OP, f/u Neuro in 8 weeks. chronic diastolic heart failure (EF 55%, TTE 2022), some congestion on CXR, patient on room air. Has history of noncompliance with Lasix [in his last admission there was weight gain of 20 pounds at presentation]. Continue home medications, monitor clinically for volume overload. 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 Continue atorvastatin asthma, stable, At baseline. Cont. Symbicort BID, PRN albuterol inhaler, Singulair hx GERD status post surgery chronic anemia, hemoglobin at baseline past tobacco abuse. 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 Continue anticoagulation [see above], statin. Fall precautions, ambulates with walker DVT prophylaxis. Heparin drip/Coumadin Full code Patient Ms. Eboni Reardon, [phone]. Updated at bedside 01/05. Updated via phone 01/07, was very much appreciative. Updated at bedside 01/08 patient's . Text document was generated using [employer] voice recognition software. It may contain grammatical or spelling errors. Kindly contact undersigned for clarification of any documentation item in question. Admission and Anticipated Discharge Date Admission Date: January 04, 2023 Subjective Patient seen and examined at bedside as a follow-up of cerebrovascular accident on the background of subtherapeutic INR. Patient was lying in bed, on room air, NAD, reports no new complaints overnight. Patient denies any headache or visual changes. Patient denies any blood in the urine or stool. Patient reports eating okay. Patient reports being back to baseline. Patient's was updated in detail at bedside, reinforced education regarding anticoagulation -has been done multiple times so far. Patient explained in detail the plans of care going forward and need for bridging with heparin until we achieve therapeutic INR. Due to noncompliance history and failing to follow-up, it would not be safe to discharge him on Lovenox subcu and Coumadin. Physical Exam Physical Exam: GENERAL: Alert and oriented x3. NAD, on RA. Obese class III. HEENT: Alopecia, no pallor, no icterus. Pupils equal, round and reactive to light. Oral mucosa moist. NECK: No JVD, no neck masses. HEART: S1 and S2 heard. irregular rate and rhythm. No murmur, no gallop. RESPIRATORY SYSTEM: Normal AP diameter. No accessory muscle use. No wheezing, no crackles. ABDOMEN: Soft, bowel sounds present, nontender, no distention. CENTRAL NERVOUS SYSTEM: No facial droop. Speech is clear. Obeys simple commands. Moves extremities. 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 EXTREMITIES: Trace/1+ edema, no erythema seen. Results & Data Results & Data Vital Signs (Past 12 Hours) Vital Signs Temp Pulse Pulse Resp BP Pulse Ox O2 Del Method 01/08/23 11:38 36.6 C 88 20 116/82 92 Room Air 01/08/23 08:00 77 01/08/23 08:30 97 H 125/77 01/08/23 08:15 36.5 C 87 20 94/67 L 91 Room Air
[2023-01-08] MEDS: WARFARIN SOD 10 MG TAB PO SCH (16:25)
[2023-01-08] MEDS: MONTELUKAST SODIUM 10 MG TABLET PO SCH (21:19)
[2023-01-09] MEDS: HEPARIN SODIUM/DEXTROSE 25,000 UNITS/500 ML BAG IV SCH ×5 (07:17→12:30)
[2023-01-09 07:30] LABS: INR 1.2 (0.9-1.1); Prothrombin Time 13.5 Seconds (9.0-12.0)
[2023-01-09] MEDS: allopurinoL 100 MG TAB PO SCH ×2 (08:20→21:34)
[2023-01-09] MEDS: METOPROLOL SUCC 25MG EXT REL TAB PO SCH ×2 (08:20→21:34)
[2023-01-09] MEDS: FUROSEMIDE 40 MG TAB PO SCH ×2 (08:20→21:34)
[2023-01-09] MEDS: cephALEXin 500 MG CAP PO SCH ×4 (08:20→21:34)
[2023-01-09] MEDS: SPIRONOLACTONE 25 MG TAB PO SCH (08:21)
[2023-01-09] MEDS: TAMSULOSIN HCL 0.4 MG CAP PO SCH (08:21)
[2023-01-09] MEDS: CETIRIZINE HCL 10 MG TABLET PO SCH (08:21)
[2023-01-09] MEDS: OXYBUTYNIN CHLORIDE XL 5 MG TABCR PO SCH (08:21)
[2023-01-09] MEDS: POTASSIUM CHLORIDE 10 MEQ TABCR PO SCH (08:21)
[2023-01-09] MEDS: ATORVASTATIN 40 MG TAB PO SCH (08:21)
[2023-01-09] MEDS: FINASTERIDE 5 MG TAB PO SCH (08:21)
[2023-01-09] MEDS: FLUTICASONE PROPIONATE NA SPR 16 GM BTL SCH (08:22)
[2023-01-09] MEDS: PSYLLIUM or GUAR GUM FIBER POWDER PACKET PO SCH (08:22)
[2023-01-09] MEDS: FLUTICASONE/VILANTEROL 200/25MCG 14 PUFFS/INHALER INH SCH (08:22)
[2023-01-09] MEDS: ESCITALOPRAM OXALATE 10 MG TAB PO SCH (08:22)
[2023-01-09] MEDS ORDERED: WARFARIN SOD 2.5 MG TAB PO ONE (09:10)
[2023-01-09 09:25] LABS: Partial Thromboplastin Ratio 1.3; Partial Thromboplastin Time 37.2 Seconds (21.0-31.0)
--- NOTE | 2023-01-09 16:24 | Hospitalist Progress Note ---
Date of Service January 09, 2023 Assessment & Plan (1) Cerebrovascular accident: Plan: 77yo M with a PMH of staph bacteremia with h/o endocarditis [place]oprost[place] [facility] [place]on lifelong cefadroxil suppression treatment, paroxysmal A-fib and PE/DVT on Coumadin, aortic valve stenosis, hypertension, BPH, embolic CVA, depression, asthma, chronic diastolic heart failure, GERD, past tobacco abuse, mood disorder, chronic anemia [baseline hemoglobin of 10] presented to the ED 01/04 with complaint of left-sided facial weakness/slurred speech/lower extremity weakness. 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 He is being managed for the following: Concern for stroke, possible embolic Subtherapeutic INR/history of A-fib: A-fib likely to remain chronic given L atrial enlargement on 2D echo secondary to MV prosthesis, beta-johnnie was cautiously resumed last admission per cardiology. Patient presented with left-sided weakness/left facial droop/slurred speech [place] neurology evaluated, status post TNK administration at 2150 hrs. on 01/04/2023 Subtherapeutic INR possibly secondary to outpatient miscommunication with PCP/[facility] Coumadin clinic and hesitancy from patient/his family to reach out (per Pt's statement) to Coumadin clinic to ask further questions why they stopped coming to his house. (Patient discharged from [facility] Coumadin clinic last month due to information that patient was going to switched back to previous Eliquis Rx from Coumadin as per outpatient records. Patient PCP later advised patient to hold off on Eliquis and to continue Coumadin. Per PCP note from December 11, 2022 --->> " patient is taking warfarin, not Eliquis." " Warfarin 10 mg as directed. Follow-up with anticoagulation clinic". Last outpatient INR check was in October 2022.) Echo with EF of 45 to 50%, left ventricular systolic function is mildly reduced, severe mitral annular calcification, mild to moderate mitral stenosis, interatrial septum is intact. Bubble study suggestive of an extracardiac imicn-yb-lckv shunt such as a pulmonary arteriovenous malformation. MRI brain - no evidence of acute infarct. 24-hour CT head check-no hemorrhage/no new acute findings. Facial droop, slurred speech, lower extremity weakness has improved. Later in the hospital stay, patient reports that he is not sure whether or not he had any weakness in his extremities. LDL 35, continue with home atorvastatin. A1c of 5.4. Low-dose heparin drip started, Coumadin restarted 01/06, additional dose 01/07 [2.5 Mg] and 01/08 [5 Mg], monitor PT/INR C/w CU telemetry. Neurochecks. Notify [facility] Coumadin clinic prior to discharge for close follow-up. PT/OT, speech eval. Neuro evaled, EEG as OP, f/u Neuro in 8 weeks. chronic diastolic heart failure (EF 55%, TTE 2022), some congestion on CXR, patient on room air. Has history of noncompliance with Lasix [in his last admission there was weight gain of 20 pounds at presentation]. Continue home medications, monitor clinically for volume overload. 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 Continue atorvastatin asthma, stable, At baseline. Cont. Symbicort BID, PRN albuterol inhaler, Singulair hx GERD status post surgery chronic anemia, hemoglobin at baseline past tobacco abuse. 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 Continue anticoagulation [see above], statin. Fall precautions, ambulates with walker DVT prophylaxis. Heparin drip/Coumadin Full code Patient Ms. Eboni Reardon, [id number]. Updated at bedside 01/05. Updated via phone 01/07, was very much appreciative. Updated at bedside 01/08 patient's . Text document was generated using [employer] voice recognition software. It may contain grammatical or spelling errors. Kindly contact undersigned for clarification of any documentation item in question. Total of 83 minutes were spent during interaction behind the scene/at bedside; and charting and performing other regular cares. Admission and Anticipated Discharge Date Admission Date: January 04, 2023 Subjective Patient seen and examined at bedside as a follow-up of cerebrovascular accident on the background of subtherapeutic INR. Patient was lying in bed, on room air, NAD, reports no new complaints overnight. Patient denies any headache or visual changes. Patient denies any blood in the urine or stool. Patient reports eating okay. Patient reports being back to baseline. Spoke with patient's Coumadin clinic regarding his previous Coumadin use history. They stated that they discharged their care after informing the patient that patient was supposed to be started on Eliquis and they stated that they had asked the patient to start on Eliquis. They stated that they were unaware that PCP recommended Coumadin on the patient. Total of 17 minutes spent in this conversation over the phone with Coumadin clinic. Patient explained in detail the plans of care going forward and need for bridging with heparin until we achieve therapeutic INR. Due to noncompliance history and failing to follow-up instructions clearly, it would not be safe to discharge him on Lovenox subcu and Coumadin. Later on I was paged by the RN that the patient's needed update at bedside. Went to the bedside, again patient's was upset and basically she did ask me same/similar questions in multiple ways. She stated that she is trying to be proactive and understand what is going on. I have been explaining the same thing/mechanism of medications almost every day in the same matter. Almost 25 to 30 minutes were spent at bedside conversation trying to calm her down and answer her questions. At the end, patient thanked me for my patience. Physical Exam Physical Exam: GENERAL: Alert and oriented x3. NAD, on RA. Obese class III. HEENT: Alopecia, no pallor, no icterus. Pupils equal, round and reactive to light. Oral mucosa moist. NECK: No JVD, no neck masses. HEART: S1 and S2 heard. irregular rate and rhythm. No murmur, no gallop. RESPIRATORY SYSTEM: Normal AP diameter. No accessory muscle use. No wheezing, no crackles. ABDOMEN: Soft, bowel sounds present, nontender, no distention. CENTRAL NERVOUS SYSTEM: No facial droop. Speech is clear. Obeys simple commands. Moves extremities. Power 5/5 all extremities, good improvement analyst strength bilaterally. EXTREMITIES: Trace/1+ edema, no erythema seen. Results & Data Results & Data Vital Signs (Past 12 Hours) Vital Signs Temp Pulse Pulse Resp BP Pulse Ox O2 Del Method 01/09/23 15:22 36.9 C 90 18 127/94 18 L Room Air 01/09/23 11:41 36.5 C 89 18 124/79 96 Room Air 01/09/23 07:47 36.4 C L 81 18 133/90 94 Room Air 01/09/23 06:03 84
[2023-01-09 16:39] LABS: Partial Thromboplastin Ratio 1.4
[2023-01-09 16:55] LABS: Partial Thromboplastin Time 40.7 Seconds (21.0-31.0)
[2023-01-09] MEDS: WARFARIN SOD 10 MG TAB PO SCH (17:00)
[2023-01-09] MEDS: MONTELUKAST SODIUM 10 MG TABLET PO SCH (21:34)
[2023-01-10 07:14] LABS: INR 1.4 (0.9-1.1); Partial Thromboplastin Ratio 1.7; Prothrombin Time 14.9 Seconds (9.0-12.0)
[2023-01-10 07:28] LABS: Partial Thromboplastin Time 46.8 Seconds (21.0-31.0)
[2023-01-10] MEDS: allopurinoL 100 MG TAB PO SCH ×2 (07:51→21:15)
[2023-01-10] MEDS: FUROSEMIDE 40 MG TAB PO SCH ×2 (07:51→18:43)
[2023-01-10] MEDS: cephALEXin 500 MG CAP PO SCH ×4 (07:51→21:16)
[2023-01-10] MEDS: POTASSIUM CHLORIDE 10 MEQ TABCR PO SCH (07:52)
[2023-01-10] MEDS: METOPROLOL SUCC 25MG EXT REL TAB PO SCH ×2 (07:52→21:16)
[2023-01-10] MEDS: TAMSULOSIN HCL 0.4 MG CAP PO SCH (07:52)
[2023-01-10] MEDS: CETIRIZINE HCL 10 MG TABLET PO SCH (07:52)
[2023-01-10] MEDS: SPIRONOLACTONE 25 MG TAB PO SCH (07:52)
[2023-01-10] MEDS: FINASTERIDE 5 MG TAB PO SCH (07:52)
[2023-01-10] MEDS: OXYBUTYNIN CHLORIDE XL 5 MG TABCR PO SCH (07:52)
[2023-01-10] MEDS: PSYLLIUM or GUAR GUM FIBER POWDER PACKET PO SCH (07:53)
[2023-01-10] MEDS: FLUTICASONE PROPIONATE NA SPR 16 GM BTL SCH (07:53)
[2023-01-10] MEDS: FLUTICASONE/VILANTEROL 200/25MCG 14 PUFFS/INHALER INH SCH (07:53)
[2023-01-10] MEDS: ATORVASTATIN 40 MG TAB PO SCH (07:53)
[2023-01-10] MEDS: ESCITALOPRAM OXALATE 10 MG TAB PO SCH (07:53)
[2023-01-10] MEDS: HEPARIN SODIUM/DEXTROSE 25,000 UNITS/500 ML BAG IV SCH (10:29)
[2023-01-10] MEDS: WARFARIN SOD 10 MG TAB PO SCH (16:12)
--- NOTE | 2023-01-10 18:07 | Hospitalist Progress Note ---
Date of Service January 10, 2023 Assessment & Plan (1) Cerebrovascular accident: Plan: 77yo M with a PMH of staph bacteremia with h/o endocarditis s/p bioprosthetic mitral valve [place] [facility] [place] -on lifelong cefadroxil suppression treatment, paroxysmal A-fib and PE/DVT on Coumadin, aortic valve stenosis, hypertension, BPH, embolic CVA, depression, asthma, chronic diastolic heart failure, GERD, past tobacco abuse, mood disorder, chronic anemia [baseline hemoglobin of 10] presented to the ED 01/04 with complaint of left-sided facial weakness/slurred speech/lower extremity weakness. 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 He is being managed for the following: Concern for stroke, possible embolic Subtherapeutic INR/history of A-fib: 01/10-Extensive discussion with pt, and sister who is a cooky machine operator. They would lie the patient discharged as soon as possible but aware of importance of INR being at goal. Agreeable to hematology consult/further discussion with Dr. Rodriguez. Extra 5mg warfarin dose given today, follow INR in AM. PER PREVIOUS PROVIDER: A-fib likely to remain chronic given L atrial enlargement on 2D echo secondary to MV prosthesis, beta-johnnie was cautiously resumed last admission per cardiology. Patient presented with left-sided weakness/left facial droop/slurred speech [place] neurology evaluated, status post TNK administration at 2150 hrs. on 01/04/2023 Subtherapeutic INR possibly secondary to outpatient miscommunication with PCP/[facility] Coumadin clinic and hesitancy from patient/his family to reach out (per Pt's statement) to Coumadin clinic to ask further questions why they stopped coming to his house. (Patient discharged from [facility] Coumadin clinic last month due to information that patient was going to switched back to previous Eliquis Rx from Coumadin as per outpatient records. Patient PCP later advised patient to hold off on Eliquis and to continue Coumadin. Per PCP note from December 11, 2022 --->> " patient is taking warfarin, not Eliquis." " Warfarin 10 mg as directed. Follow-up with a nticoagulation clinic". Last outpatient INR check was in October 2022.) Echo with EF of 45 to 50%, left ventricular systolic function is mildly reduced, severe mitral annular calcification, mild to moderate mitral stenosis, interatrial septum is intact. Bubble study suggestive of an extracardiac bwkle-fn-[id number] shunt such as a pulmonary arteriovenous malformation. MRI brain - no evidence of acute infarct. 24-hour CT head check-no hemorrhage/no new acute findings. Facial droop, slurred speech, lower extremity weakness has improved. Later in the hospital stay, patient reports that he is not sure whether or not he had any weakness in his extremities. LDL 35, continue with home atorvastatin. A1c of 5.4. Low-dose heparin drip started, Coumadin restarted 01/06, additional dose 01/07 [2.5 Mg] and 01/08 [5 Mg], monitor PT/INR C/w CU telemetry. Neurochecks. Notify [facility] Coumadin clinic prior to discharge for close follow-up. PT/OT, speech eval. Neuro evaled, EEG as OP, f/u Neuro in 8 weeks. chronic diastolic heart failure (EF 55%, TTE 2022), some congestion on CXR, patient on room air. Has history of noncompliance with Lasix [in his last admission there was weight gain of 20 pounds at presentation]. Continue home medications, monitor clinically for volume overload. 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 Continue atorvastatin asthma, stable, At baseline. Cont. Symbicort BID, PRN albuterol inhaler, Singulair hx GERD status post surgery chronic anemia, hemoglobin at baseline past tobacco abuse. 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 Continue anticoagulation [see above], statin. Fall precautions, ambulates with walker DVT prophylaxis. Heparin drip/Coumadin Full code Patient Ms. Eboni Reardon, [id number]. Updated at bedside 01/05. Updated via phone 01/07, was very much appreciative. Updated at bedside 01/08 patient's . Text document was generated using [employer] voice recognition software. It may contain grammatical or spelling errors. Kindly contact undersigned for clarification of any documentation item in question. Total of 83 minutes were spent during interaction behind the scene/at bedside; and charting and performing other regular cares. Admission and Anticipated Discharge Date Admission Date: January 04, 2023 Subjective Pt seen with and sister at bedside. Extensive discussion, pt would like to go home. States he feels fine and believes that the INR should not keep him hospitalized. Review of Systems Review of Systems: All systems reviewed & are unremarkable except as noted in Subjective Physical Exam Physical Exam: General: Alert, oriented. No acute distress Skin: No noted rashes or bruises Psych: Appropriate mood and affect Neuro: No gross deficits HEENT: NC/AT CV: RRR, Normal s1, s2. No murmurs appreciated Resp: Breath sounds clear bilaterally, no increased effort of breathing. No crackles/rhonchi/rales. Abdomen: Soft, nontender, nondistended. No guarding. No organomegaly appreciated. Extremities: edema in L>R extremity Results & Data Results & Data Vital Signs (Past 12 Hours) Vital Signs Temp Pulse Resp BP BP Pulse Ox O2 Del Method 01/10/23 15:57 36.6 C 94 H 19 121/83 93 Room Air 01/10/23 10:26 37.2 C 86 20 133/96 94 Room Air 01/10/23 07:59 36.3 C L 96 H 21 129/89 91 Room Air
[2023-01-10] MEDS ORDERED: WARFARIN SOD 5 MG TAB PO ONE (18:30)
[2023-01-10] MEDS ORDERED: Nursing to Pharmacy Communication SCH (18:45)
[2023-01-10] MEDS: MONTELUKAST SODIUM 10 MG TABLET PO SCH (21:17)
[2023-01-11 08:11] LABS: INR 1.6 (0.9-1.1); Partial Thromboplastin Ratio 1.8; Prothrombin Time 17.2 Seconds (9.0-12.0)
[2023-01-11] MEDS: FLUTICASONE PROPIONATE NA SPR 16 GM BTL SCH (08:13)
[2023-01-11] MEDS: FLUTICASONE/VILANTEROL 200/25MCG 14 PUFFS/INHALER INH SCH (08:13)
[2023-01-11] MEDS: OXYBUTYNIN CHLORIDE XL 5 MG TABCR PO SCH (08:14)
[2023-01-11] MEDS: METOPROLOL SUCC 25MG EXT REL TAB PO SCH ×2 (08:14→21:01)
[2023-01-11] MEDS: SPIRONOLACTONE 25 MG TAB PO SCH (08:15)
[2023-01-11] MEDS: CETIRIZINE HCL 10 MG TABLET PO SCH (08:15)
[2023-01-11] MEDS: cephALEXin 500 MG CAP PO SCH ×4 (08:15→21:00)
[2023-01-11] MEDS: ATORVASTATIN 40 MG TAB PO SCH (08:15)
[2023-01-11] MEDS: TAMSULOSIN HCL 0.4 MG CAP PO SCH (08:16)
[2023-01-11] MEDS: POTASSIUM CHLORIDE 10 MEQ TABCR PO SCH (08:16)
[2023-01-11] MEDS: FINASTERIDE 5 MG TAB PO SCH (08:16)
[2023-01-11] MEDS: ESCITALOPRAM OXALATE 10 MG TAB PO SCH (08:17)
[2023-01-11] MEDS: allopurinoL 100 MG TAB PO SCH ×2 (08:17→21:00)
[2023-01-11] MEDS: FUROSEMIDE 40 MG TAB PO SCH ×2 (08:18→16:19)
[2023-01-11] MEDS: PSYLLIUM or GUAR GUM FIBER POWDER PACKET PO SCH (08:18)
[2023-01-11] MEDS: HEPARIN SODIUM/DEXTROSE 25,000 UNITS/500 ML BAG IV SCH (08:57)
[2023-01-11] MEDS ORDERED: WARFARIN SOD 10 MG TAB PO ONE (09:44)
[2023-01-11] MEDS: WARFARIN SOD 10 MG TAB PO SCH (16:19)
[2023-01-11] MEDS ORDERED: ACETAMINOPHEN 325 MG TAB PO PRN (16:34)
[2023-01-11 17:32] LABS: INR 1.7 (0.9-1.1); Prothrombin Time 18.5 Seconds (9.0-12.0)
--- NOTE | 2023-01-11 17:48 | Hospitalist Progress Note ---
Date of Service January 11, 2023 Assessment & Plan (1) Cerebrovascular accident: Plan: 77yo M with a PMH of staph bacteremia with h/o endocarditis [place] [facility] [place]on lifelong cefadroxil suppression treatment, paroxysmal A-fib and PE/DVT on Coumadin, aortic valve stenosis, hypertension, BPH, embolic CVA, depression, asthma, chronic diastolic heart failure, GERD, past tobacco abuse, mood disorder, chronic anemia [baseline hemoglobin of 10] presented to the ED 01/04 with complaint of left-sided facial weakness/slurred speech/lower extremity weakness. 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 Concern for stroke, possible embolic Subtherapeutic INR/history of A-fib: Stable for discharge, however INR not yet therapeutic. 01/10-Extensive discussion with pt, and sister who is a telegraph repeater installer. They would like the patient discharged as soon as possible but aware of importance of INR being at goal. Agreeable to hematology consult/further discussion with Dr. Rodriguez. Discussion by phone with Dr. Rodriguez, requesting detailed log of warfarin doses thus far for further recommendations. Extra 5mg warfarin dose given, follow INR in AM. 01/11-INR 1.6 in the AM. Additional warfarin 10mg given in AM with repeat INR check later in the day at 1.7. Continue with scheduled evening warfarin 10mg and repeat INR with AM labs. PER PREVIOUS PROVIDER: A-fib likely to remain chronic given L atrial enlargement on 2D echo secondary to MV prosthesis, beta-johnnie was cautiously resumed last admission per cardiology. Patient presented with left-sided weakness/left facial droop/slurred speech [place] neurology evaluated, status post TNK administration at 2150 hrs. on 01/04/2023 Subtherapeutic INR possibly secondary to outpatient miscommunication with PCP/[facility] Coumadin clinic and hesitancy from patient/his family to reach out (per Pt's statement) to Coumadin clinic to ask further questions why they stopped coming to his house. (Patient discharged from [facility] Coumadin clinic last month due to information that patient was going to switched back to previous Eliquis Rx from Coumadin as per outpatient records. Patient PCP later advised patient to hold off on Eliquis and to continue Coumadin. Per PCP note from December 11, 2022 --->> " patient is taking warfarin, not Eliquis." " Warfarin 10 mg as directed. Follow-up with anticoagulation clinic". Last outpatient INR check was in October 2022.) Echo with EF of 45 to 50%, left ventricular systolic function is mildly reduced, severe mitral annular calcification, mild to moderate mitral stenosis, interatrial septum is intact. Bubble study suggestive of an extracardiac [id number] shunt such as a pulmonary arteriovenous malformation. MRI brain - no evidence of acute infarct. 24-hour CT head check-no hemorrhage/no new acute findings. Facial droop, slurred speech, lower extremity weakness has improved. Later in the hospital stay, patient reports that he is not sure whether or not he had any weakness in his extremities. LDL 35, continue with home atorvastatin. A1c of 5.4. Low-dose heparin drip started, Coumadin restarted 01/06, additional dose 01/07 [2.5 Mg] and 01/08 [5 Mg], monitor PT/INR C/w CU telemetry. Neurochecks. Notify [facility] Coumadin clinic prior to discharge for close follow-up. PT/OT, speech eval. Neuro evaled, EEG as OP, f/u Neuro in 8 weeks. chronic diastolic heart failure (EF 55%, TTE 2022), some congestion on CXR, patient on room air. Has history of noncompliance with Lasix [in his last admission there was weight gain of 20 pounds at presentation]. Continue home medications, monitor clinically for volume overload. 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 Continue atorvastatin asthma, stable, At baseline. Cont. Symbicort BID, PRN albuterol inhaler, Singulair hx GERD status post surgery chronic anemia, hemoglobin at baseline past tobacco abuse. 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 Continue anticoagulation [see above], statin. Fall precautions, ambulates with walker DVT prophylaxis. Heparin drip/Coumadin Full code Patient Ms. Eboni Reardon, [id number]. Admission and Anticipated Discharge Date Admission Date: January 04, 2023 Subjective Pt seen with and sister in the AM, later just pt and his . Extensive discussion, pt would like to go home. However, understands the need to have the INR at therapeutic levels. Denies any other acute concerns. Review of Systems Review of Systems: All systems reviewed & are unremarkable except as noted in Subjective Physical Exam Physical Exam: General: Alert, oriented. No acute distress Skin: No noted rashes or bruises Psych: Appropriate mood and affect Neuro: No gross deficits HEENT: NC/AT CV: RRR, Normal s1, s2. No murmurs appreciated Resp: Breath sounds clear bilaterally, no increased effort of breathing. No crackles/rhonchi/rales. Abdomen: Soft, nontender, nondistended. No guarding. No organomegaly appreciated . Extremities: edema in L>R extremity Results & Data Results & Data Vital Signs (Past 12 Hours) Vital Signs Temp Pulse Resp BP BP Pulse Ox O2 Del Method 01/11/23 15:49 36.8 C 79 18 109/83 95 Room Air 01/11/23 10:49 36.4 C L 96 H 22 125/84 96 Room Air 01/11/23 07:43 36.2 C L 84 19 145/97 H 94 Room Air
[2023-01-11] MEDS: MONTELUKAST SODIUM 10 MG TABLET PO SCH (21:01)
[2023-01-12 07:42] LABS: INR 2.4 (0.9-1.1); Partial Thromboplastin Ratio 2.3
[2023-01-12] MEDS: PSYLLIUM or GUAR GUM FIBER POWDER PACKET PO SCH (08:01)
[2023-01-12] MEDS: FLUTICASONE PROPIONATE NA SPR 16 GM BTL SCH (08:01)
[2023-01-12] MEDS: FLUTICASONE/VILANTEROL 200/25MCG 14 PUFFS/INHALER INH SCH (08:01)
[2023-01-12] MEDS: OXYBUTYNIN CHLORIDE XL 5 MG TABCR PO SCH (08:01)
[2023-01-12] MEDS: allopurinoL 100 MG TAB PO SCH (08:02)
[2023-01-12] MEDS: ATORVASTATIN 40 MG TAB PO SCH (08:02)
[2023-01-12] MEDS: ESCITALOPRAM OXALATE 10 MG TAB PO SCH (08:02)
[2023-01-12] MEDS: SPIRONOLACTONE 25 MG TAB PO SCH (08:02)
[2023-01-12] MEDS: cephALEXin 500 MG CAP PO SCH (08:02)
[2023-01-12] MEDS: CETIRIZINE HCL 10 MG TABLET PO SCH (08:02)
[2023-01-12] MEDS: TAMSULOSIN HCL 0.4 MG CAP PO SCH (08:02)
[2023-01-12] MEDS: POTASSIUM CHLORIDE 10 MEQ TABCR PO SCH (08:03)
[2023-01-12] MEDS: METOPROLOL SUCC 25MG EXT REL TAB PO SCH (08:03)
[2023-01-12] MEDS: FINASTERIDE 5 MG TAB PO SCH (08:03)
[2023-01-12] MEDS: FUROSEMIDE 40 MG TAB PO SCH (08:04)
[2023-01-12 08:07] LABS: Partial Thromboplastin Time 65.7 Seconds (21.0-31.0)
--- NOTE | 2023-01-12 10:32 | Discharge Summary ---
Discharge Summary Date of Service January 12, 2023 Notes For Next Care Provider Ensure follow up with cardiology for noted shunt on echocardiogram Ensure follow up with the Coumadin clinic for INR and adjust coumadin dosing as appropriate as soon as possible. Ensure Neurology follow up in 8 weeks, consider EEG. Medication Changes From Visit Coumadin 10mg daily Admission HPI Per Admitting Provider History obtained from patient, family, and records. Medical history significant for chronic diastolic heart failure (EF 55%, TTE 2022), A-fib/history of PE DVT on Coumadin, valvular heart disease (mild /moderate TR), history of embolic CVA, hx MSSA endocarditis status post bioprosthetic MVR/debridement on lifelong cefadroxil suppression Rx, hypertension, hyperlipidemia, asthma, GERD status post surgery, chronic anemia (baseline hemoglobin of 10), mood disorder, past tobacco abuse. Last confinement September 2022 for decompensated heart failure secondary to medication noncompliance. Patient discharged from [facility] Coumadin clinic last November 28, 2022 after information relayed from PCP's office that patient was to be switched back from Coumadin to Eliquis Rx for anticoagulation. Patient had been switched from Eliquis to Coumadin for his A-fib after mitral valve surgery [place]ocard[place] [facility] [place],. Last documented outpatient INR was 1.2 from November 19, 2022. Patient PCP later advised patient to hold off on Eliquis and to continue Coumadin prescription. Unclear if information conveyed to [facility] Coumadin clinic. Patient wondering why they have not been getting calls from Coumadin clinic for blood work after last month's communication. Few hours ago, patient felt lightheaded causing him to fall to the ground from his chair. found him on the floor unable to get up. Patient noted left-sided facial weakness. Slurred speech noted. Patient's left side seem weak. Patient denies headache, chest pain, SOB. Compliant with home medications. Stroke alert called upon arrival at the ER. TNK subsequently administered following [facility] stroke specialist recommendation. Significant improvement in left-sided weakness as per ER staff. 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 Principal Dx & Hospital Course #1 = Principal Diagnosis (1) Cerebrovascular accident: 77yo M with a PMH of staph bacteremia with h/o endocarditis s/p bioprosthetic mitral valve replacement [place] [facility] [place] -on lifelong cefadroxil suppression treatment, paroxysmal A-fib and PE/DVT on Coumadin, aortic valve stenosis, hypertension, BPH, embolic CVA, depression, asthma, chronic diastolic heart failure, GERD, past tobacco abuse, mood disorder, chronic anemia [baseline hemoglobin of 10] presented to the ED 01/04 with complaint of left-sided facial weakness/slurred speech/lower extremity weakness. Patient reported few hours before [employer]INTE[employer]PER[employer] he felt lightheaded causing him to fall to the ground from a chair and found him on the floor unable to get up. Concern for stroke, possible embolic Subtherapeutic INR/history of A-fib: Stable for discharge, however INR not yet therapeutic. 01/10-Extensive discussion with pt, and sister who is a telesales manager. They would like the patient discharged as soon as possible but aware of importance of INR being at goal. Agreeable to hematology consult/further discussion with Dr. Rodriguez. Discussion by phone with Dr. Rodriguez, requesting detailed log of warfarin doses thus far for further recommendations. Extra 5mg warfarin dose given, follow INR in AM. 01/11-INR 1.6 in the AM. Additional warfarin 10mg given in AM with repeat INR check later in the day at 1.7. Continue with scheduled evening warfarin 10mg and repeat INR with AM labs. PER PREVIOUS PROVIDER: A-fib likely to remain chronic given L atrial enlargement on 2D echo secondary to MV prosthesis, beta-johnnie was cautiously resumed last admission per cardiology. Patient presented with left-sided weakness/left facial droop/slurred speech [place] [facility] evaluated, status post TNK administration at 2150 hrs. on 01/04/2023 Subtherapeutic INR possibly secondary to outpatient miscommunication with PCP/[facility] Coumadin clinic and hesitancy from patient/his family to reach out (per Pt's statement) to Coumadin clinic to ask further questions why they stopped coming to his house. (Patient discharged from [facility] Coumadin clinic last month due to information that patient was going to switched back to previous Eliquis Rx from Coumadin as per outpatient records. Patient PCP later advised patient to hold off on Eliquis and to continue Coumadin. Per PCP note from December 11, 2022 --->> " patient is taking warfarin, not Eliquis." " Warfarin 10 mg as directed. Follow-up with anticoagulation clinic". Last outpatient INR check was in October 2022.) Echo with EF of 45 to 50%, left ventricular systolic function is mildly reduced, severe mitral annular calcification, mild to moderate mitral stenosis, interatrial septum is intact. 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 MRI brain - no evidence of acute infarct. 24-hour CT head check-no hemorrhage/no new acute findings. Facial droop, slurred speech, lower extremity weakness has improved. Later in the hospital stay, patient reports that he is not sure whether or not he had any weakness in his extremities. LDL 35, continue with home atorvastatin. A1c of 5.4. Low-dose heparin drip started, Coumadin restarted 01/06, additional dose 01/07 [2.5 Mg] and 01/08 [5 Mg], monitor PT/INR C/w CU telemetry. Neurochecks. Notify [facility] Coumadin clinic prior to discharge for close follow-up. PT/OT, speech eval. Neuro evaled, EEG as OP, f/u Neuro in 8 weeks. chronic diastolic heart failure (EF 55%, TTE 2022), some congestion on CXR, patient on room air. Has history of noncompliance with Lasix [in his last admission there was weight gain of 20 pounds at presentation]. Continue home medications, monitor clinically for volume overload. 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 Continue atorvastatin asthma, stable, At baseline. Cont. Symbicort BID, PRN albuterol inhaler, Singulair hx GERD status post surgery chronic anemia, hemoglobin at baseline past tobacco abuse. 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 Continue anticoagulation [see above], statin. Fall precautions, ambulates with walker DVT prophylaxis. Heparin drip/Coumadin Full code Patient Ms. Eboni Reardon, [id number]. Discharge Exam General: Alert, oriented. No acute distress Skin: No noted rashes or bruises Psych: Appropriate mood and affect Neuro: No gross deficits HEENT: NC/AT CV: RRR, Normal s1, s2. No murmurs appreciated Resp: Breath sounds clear bilaterally, no increased effort of breathing. No crackles/rhonchi/rales. Abdomen: Soft, nontender, nondistended. No guarding. No organomegaly appreciated. Extremities: edema in L>R extremity Updated Medication List Medication Instructions Recorded Confirmed Type albuterol sulfate 90 mcg/actuation 2 inh inhalation Q4 PRN sob 12/30/19 01/04/23 History aerosol inhaler allopurinol 100 mg tablet 200 mg PO BID 12/30/19 01/04/23 History cetirizine 10 mg tablet 10 mg PO QAM 12/30/19 01/04/23 History montelukast 10 mg tablet 10 mg PO HS 07/03/22 01/04/23 History (Singulair) atorvastatin 40 mg tablet 40 mg PO DAILY 10/07/22 01/04/23 History budesonide-formoterol HFA 160 2 puff inhalation BID 10/07/22 01/04/23 History mcg-4.5 mcg/actuation aerosol inhaler (Symbicort) docusate sodium 100 mg capsule 100 mg PO BID PRN Constipation 10/07/22 01/04/23 History escitalopram oxalate 10 mg tablet 10 mg PO DAILY 10/07/22 01/04/23 History fluticasone propionate 50 2 spray intranasal DAILY 10/07/22 01/04/23 History mcg/actuation nasal spray,suspension magnesium 200 mg tablet 400 mg PO DAILY 10/07/22 01/04/23 History arkhrjqk-fn-jsjui 300 mcg-K 60 1 tab PO DAILY 10/07/22 01/04/23 History mcg-lycop 600 mcg-lutein 300 mcg tablet (Centrum Silver Men) omega-3 fatty acids 1,000 mg PO DAILY 10/07/22 01/04/23 History potassium chloride 10 mEq 10 meq PO DAILY 10/07/22 01/04/23 History capsule,extended release psyllium 1 packet PO DAILY 10/07/22 01/04/23 History selenium 50 mcg tablet 50 mcg PO DAILY 10/07/22 01/04/23 History vitamin B complex 1 tab PO DAILY 10/07/22 01/04/23 History vitamin E 400 unit tablet 400 unit PO DAILY 10/07/22 01/04/23 History cefadroxil 500 mg capsule 500 mg PO BID #60 caps 10/16/22 01/04/23 Rx spironolactone 25 mg tablet 25 mg PO DAILY #30 tabs 10/16/22 01/04/23 Rx finasteride 5 mg tablet 5 mg PO DAILY #90 tabs 11/28/22 01/04/23 Rx tamsulosin 0.4 mg capsule 0.4 mg PO DAILY #90 caps 11/28/22 01/04/23 Rx furosemide 40 mg tablet 40 mg PO BID 01/04/23 01/04/23 History oxybutynin chloride 10 mg 10 mg PO QAM 01/04/23 01/04/23 History tablet,extended release 24 hr torsemide 20 mg tablet 20 mg PO DAILY 01/04/23 01/04/23 History furosemide 40 mg tablet 40 mg PO BID #60 tabs 01/12/23 Rx metoprolol succinate 25 mg 12.5 mg PO BID #60 tabs 01/12/23 Rx tablet,extended release 24 hr warfarin 10 mg tablet 10 mg PO DAILY #30 tabs 01/12/23 Rx warfarin 5 mg tablet 10 mg PO DAILY@1600 #60 tabs 01/12/23 01/04/23 Rx Hospital Stay Data Consultations 01/04/23 21:41 ED Decision to Admit Stat 01/04/23 23:35 Consult [employer] Routine Consult Neurology Routine Diagnostic Imagining Performed 01/04/23 20:56 CT angio head w con Stat CT angio neck with con Stat CT head/brain wo con Stat 01/05/23 08:59 MR brain wo con Routine 01/05/23 22:00 CT head/brain wo con Routine Pending Results Patient Have Any Pending Studies at Discharge: No Discharge Instructions Given to Patient (Per Discharging Provider) You were admitted with the concern that you had another stroke. You received a medication to help break up any clots in the brain if they were present. You remained stable and at your baseline. However, your INR was found to be not within the goal range of 2-3. We gave you additional doses of coumadin while hospitalized and your INR on the day of discharge is 2.4. This is in the acceptable range. We ask that you have follow up with the coumadin clinic as soon as possible to ensure your INR remains within the acceptable range of 2-3. Please continue to take your coumadin as prescribed. Our office will work on our end to ensure that you have follow up scheduled with the coumadin clinic as soon as possible, preferably within the next day or two. We also ask that you follow up with your retail beauty specialist. In particular, your most recent echocardiogram noted a possible shunt in your heart. Your retail beauty specialist will follow up on that. Your home metoprolol dose was decreased to 12.5mg twice a day. Please continue with that dose and follow up with your retail beauty specialist about that as well. We also ask that you follow up with your neurologist in 8 weeks. They also recommended an EEG to monitor your brain activity and can discuss the need for this further with you at your scheduled appointment. And finally, we recommend following up with your primary care provider who will keep an eye on everything and further manage all your chronic medical diagnoses. We will also help with scheduling these appointments for you. It is very important that you take your medications as prescribed and follow up with your specialists and coumadin clinic as scheduled. Wishing you the best. It was truly a pleasure caring for you while here. Total Time Total Time Spent Total Time Spent (In Minutes): >30 minutes
== END 2023-01-12 10:22 | disposition home or self-care (01) | DRG 62 ==
LOC: ED 20:53 → SUATTDRO 22:42 → 1E 22:42 → 2S 01-06 13:44

== ENCOUNTER 2023-11-07 15:11 | Observation (INO) ==
--- NOTE | 2023-11-07 15:49 | XRay Report ---
XR chest 1V not portable CLINICAL HISTORY: Chest pain, nonspecific TECHNIQUE: Single frontal radiograph of the chest was obtained. Comparison: Comparison is made to chest radiograph 01/04/2023 FINDINGS: Median sternotomy wires are unchanged. Cardiomegaly is noted. Prominence and cephalization of the vas culature is seen. No evidence of pleural effusion or pneumothorax. IMPRESSION: Cardiomegaly and mild pulmonary edema. ACT 112: Negative or not required by law. Electronically signed by: Idris Jain M.D. 11/07/2023 3:48 PM
[2023-11-07 15:53] LABS: Basophils # (auto) 0.06 K/uL (0.00-0.20); Basophils % (auto) 0.6 %; Eosinophils # (auto) 0.27 K/uL (0.00-0.50); Eosinophils % (auto) 2.6 %; Hematocrit (blood only) 43.4 % (42.0-52.0); Hemoglobin 14.4 g/dl (14.0-18.0); Immature Granulocytes # (auto) 0.25 K/uL (0.01-0.20); Immature Granulocytes % (auto) 2.4 %; Lymphocytes % (auto) 16.4 %; Mean Corpuscular Hemoglobin 31.1 pg (25.0-34.0); Mean Corpuscular Hgb Conc 33.2 g/dL (32.0-36.0); Mean Corpuscular Volume 93.7 fL (80.0-100.0); Mean Platelet Volume 9.3 fL (9.4-12.4); Monocytes # (auto) 0.95 K/uL (0.11-0.59); Monocytes % (auto) 9.2 %; Neutrophils # (auto) 7.12 K/uL (1.40-6.50); Neutrophils % (auto) 68.8 %; Platelet Count 193 K/uL (130-400); RDW Coefficient of Variation 15.9 % (11.5-14.5); RDW Standard Deviation 54.6 fL (36.4-46.3); Red Blood Count 4.63 M/uL (4.70-6.10); White Blood Count 10.35 K/ul (4.8-10.8)
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
[2023-11-07 16:09] LABS: Albumin Globulin Ratio 1.6 (0.9-2); Albumin Level 3.9 gm/dl (3.4-5.0); BUN Creatinine Ratio 25.2 (10-20); Bilirubin,Total 0.6 mg/dl (0.2-1.0); Calcium 9.2 mg/dl (8.6-10.3); Creatinine Clr Calc Pharmacy 63.1 ml/min; Est GFR (African American) 76.1 ml/min; Est GFR (Non-African American) 65.7 ml/min; Globulin 2.4 gm/dl (2.5-4.0); Magnesium 2.1 mg/dl (1.7-2.4); Potassium 4.4 mmol/L (3.5-5.1); Total Protein 6.3 gm/dl (6.0-8.3)
[2023-11-07 16:14] LABS: Troponin I High Sensitivity 12.6 pg/ml (0-20)
[2023-11-07 16:18] LABS: INR 2.6 (0.9-1.1); Partial Thromboplastin Time 28 Seconds (21-31); Prothrombin Time 25.7 Seconds (9.0-12.0)
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
[2023-11-07 18:46] LABS: Adenovirus PCR Not Detected (NotDetected); Bordetella parapertussis PCR Not Detected (NotDetected); Bordetella pertussis PCR Not Detected (NotDetected); Chlamydia pneumoniae PCR Not Detected (NotDetected); Coronavirus 229E PCR Not Detected (NotDetected); Coronavirus CoV-2 (COVID19)PCR Not Detected (NotDetected); Coronavirus HKU1 PCR Not Detected (NotDetected); Coronavirus NL63 PCR Not Detected (NotDetected); Coronavirus OC43PCR Not Detected (NotDetected); Human Metapneumovirus PCR Not Detected (NotDetected); Influenza A PCR Not Detected (NotDetected); Influenza B PCR Not Detected (NotDetected); Mycoplasma pneumoniae PCR Not Detected (NotDetected); Parainfluenza Virus 1 PCR Not Detected (NotDetected); Parainfluenza Virus 2 PCR Not Detected (NotDetected); Parainfluenza Virus 3 PCR Not Detected (NotDetected); Parainfluenza Virus 4 PCR Not Detected (NotDetected); Respiratory Syncytial VirusPCR Not Detected (NotDetected); Rhinovirus/Enterovirus PCR Not Detected (NotDetected)
[2023-11-07] MEDS: FUROSEMIDE 40 MG/4 ML VIAL IV ONE (19:11)
[2023-11-07] MEDS ORDERED: NITROGLYCERIN SL 0.4 MG/TAB TAB SL PRN (19:20)
[2023-11-07] MEDS ORDERED: FLUTICASONE PROPIONATE NA SPR 16 GM BTL PRN (20:52)
[2023-11-07] MEDS ORDERED: POLYETHYLENE (MIRALAX) 17 GM PACK PO PRN (20:52)
[2023-11-07] MEDS ORDERED: ALBUTEROL HFA 8 GM INHALER INH PRN (20:52)
[2023-11-07] MEDS ORDERED: DOCUSATE SODIUM 100 MG CAP PO PRN (20:52)
[2023-11-07] MEDS ORDERED: ACETAMINOPHEN 325 MG TAB PO PRN (20:52)
[2023-11-07] MEDS ORDERED: ONDANSETRON INJ 2 MG/ML 2 ML VIAL IV PRN (20:52)
[2023-11-07] MEDS: FORMOTEROL 20 MCG/2 ML VIAL NEB SCH (21:11)
[2023-11-07] MEDS: BUDESONIDE 0.5 MG/2 ML VIAL (PULMICORT) NEB SCH (21:11)
[2023-11-07] MEDS: METOPROLOL SUCC 50MG EXT REL TAB PO SCH (21:55)
[2023-11-07] MEDS: allopurinoL 100 MG TAB PO SCH (21:55)
[2023-11-07] MEDS: MONTELUKAST SODIUM 10 MG TABLET PO SCH (21:55)
[2023-11-07] MEDS: ATORVASTATIN 40 MG TAB PO SCH (21:55)
[2023-11-08 06:39] LABS: Hematocrit (blood only) 41.3 % (42.0-52.0); Mean Corpuscular Hemoglobin 31.5 pg (25.0-34.0); Mean Corpuscular Hgb Conc 33.9 g/dL (32.0-36.0); Mean Corpuscular Volume 92.8 fL (80.0-100.0); Mean Platelet Volume 9.4 fL (9.4-12.4); Platelet Count 191 K/uL (130-400); RDW Coefficient of Variation 15.8 % (11.5-14.5); RDW Standard Deviation 53.8 fL (36.4-46.3); Red Blood Count 4.45 M/uL (4.70-6.10); White Blood Count 8.19 K/ul (4.8-10.8)
[2023-11-08 06:59] LABS: Calcium 8.8 mg/dl (8.6-10.3); Creatinine Clr Calc Pharmacy 67.6 ml/min; Est GFR (African American) 82.6 ml/min; Est GFR (Non-African American) 71.3 ml/min
[2023-11-08 07:15] LABS: INR 2.5 (0.9-1.1); Prothrombin Time 25.1 Seconds (9.0-12.0)
--- NOTE | 2023-11-08 07:23 | Electrocardiogram Report ---
Test Reason : Blood Pressure : / mmHG Vent. Rate : 077 BPM Atrial Rate : 093 BPM P-R Int : 000 ms QRS Dur : 088 ms QT Int : 424 ms P-R-T Axes : 000 021 004 degrees QTc Int : 479 ms Atrial fibrillation T wave abnormality, consider anterior ischemia Prolonged QT Abnormal ECG When compared with ECG of 05-JAN-2023 06:26, T wave inversion now evident in Inferior leads T wave inversion now evident in Anterior leads Confirmed by Liborio Sánchez ([id number]) on 11/08/2023 7:23:19 AM Referred By: Confirmed By:Jesus Sánchez
--- NOTE | 2023-11-08 07:23 | Electrocardiogram Report ---
Test Reason : Blood Pressure : / mmHG Vent. Rate : 069 BPM Atrial Rate : 093 BPM P-R Int : 000 ms QRS Dur : 088 ms QT Int : 434 ms P-R-T Axes : 000 021 -14 degrees QTc Int : 465 ms Atrial fibrillation Cannot rule out Inferior infarct , age undetermined T wave abnormality, consider anterior ischemia Abnormal ECG When compared with ECG of 07-NOV-2023 15:26, (unconfirmed) Minimal criteria for Inferior infarct are now Present Confirmed by Liborio Sánchez ([id number]) on 11/08/2023 7:22:55 AM Referred By: Judi Broderick Confirmed By:Jesus Sánchez
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
[2023-11-08 08:12] LABS: Magnesium 2.1 mg/dl (1.7-2.4)
[2023-11-08] MEDS ORDERED: NON-FORMULARY MEDICATION (Selenium 50 mcg Tablet) PO SCH (09:00)
[2023-11-08] MEDS: ESCITALOPRAM OXALATE 10 MG TAB PO SCH (09:53)
[2023-11-08] MEDS: CETIRIZINE HCL 10 MG TABLET PO SCH (09:53)
[2023-11-08] MEDS: POTASSIUM CHLORIDE 10 MEQ TABCR PO SCH (09:53)
[2023-11-08] MEDS: TAMSULOSIN HCL 0.4 MG CAP PO SCH (09:53)
[2023-11-08] MEDS: PSYLLIUM or GUAR GUM FIBER 4GM PACKET PO SCH (09:54)
[2023-11-08] MEDS: FINASTERIDE 5 MG TAB PO SCH (09:54)
[2023-11-08] MEDS: VITAMIN B COMPLEX TAB PO SCH (09:54)
[2023-11-08] MEDS: TOCOPHERYL, DL-ALPHA 100 UNITS 67 MG CAP PO SCH (09:54)
[2023-11-08] MEDS: SPIRONOLACTONE 25 MG TAB PO SCH (09:54)
[2023-11-08] MEDS: MAGNESIUM OXIDE 400 MG TAB PO SCH (09:54)
[2023-11-08] MEDS: FUROSEMIDE 40 MG/4 ML VIAL IV SCH (09:55)
--- NOTE | 2023-11-08 10:08 | Hospitalist Progress Note ---
Date of Service November 08, 2023 Assessment & Plan (1) Acute exacerbation of CHF (congestive heart failure): (2) Atrial fibrillation, controlled: (3) Asthma: (4) Aortic stenosis: (5) HTN (hypertension): (6) BPH w urinary obs/LUTS: Plan Patient with acute on chronic heart failure most likely due to treatment for recent upper respiratory infection with prednisone altering his overall metabolic state. Is responding well to IV diuresis, however still requires hospitalization for monitoring of electrolytes and laboratory studies and specialty evaluation. Continue IV diuresis today then transition to oral Lasix tomorrow Communication with cardiology, Dr. Ford, he agrees with diuretic plan. Also due to patient's previous history of atypical presentation endocarditis he is recommending getting a set of blood cultures. Patient to bring in his home oral antibiotic for chronic suppression of endocarditis Continue to monitor intake and output Monitor electrolytes Patient in chronic atrial fibrillation, continue to dose warfarin and monitor INR Increase activity as tolerated Continue his usual inhalers for his chronic asthma Admission and Anticipated Discharge Date Admission Date: November 07, 2023 Subjective Patient reports that his breathing is significantly improved. No chest pain Physical Exam Physical Exam: Constitutional: Alert HEENT: Mucous membranes moist. Lungs: Clear to auscultation, decreased, few crackles at bases, no significant wheezing CV: S1-S2, regular rate, irregular rhythm Abdomen: Soft, nontender, nondistended Extremities: 1+ edema Neuro: No focal deficits Psych: Cooperative, normal mood Results & Data Results & Data Vital Signs (Past 12 Hours) Vital Signs Temp Pulse Resp BP Pulse Ox O2 Del Method 11/08/23 07:55 37.2 C 75 17 119/84 94 Room Air 11/08/23 07:01 75 16 95 Room Air 11/08/23 02:36 36.5 C 74 18 110/69 93 Room Air 11/07/23 23:28 Room Air 11/07/23 22:46 36.7 C 75 18 116/80 93 Room Air Diagnostic Findings Reviewed imaging, laboratory and diagnostic studies. Pertinent findings as below. INR 2.5 Potassium 4.0 Creatinine 1.0 Intake and output reviewed Personally reviewed chest x-ray film some mild congestion Personally reviewed EKG, confirms chronic atrial fibrillation
--- OUTSIDE RECORDS SUMMARY | 2023-11-08 13:55 | External Medical Summary | Summary of Care ---
Author Name Unknown Organization [facility] Address [address] [place] [address] Phone [phone] Care Team Providers Care Warm In Worker Name Role Phone Judi Broderick MD Primary Care Provider [phone] Reason for Visit * Reason Comments Dosage Adjustment Via Phone (anticoag Cl inic) Encounter Details Date Type Department Care Team (Latest Contact Info) Description 10/28/2023 6:00 PM EDT Anticoagulation Pharmacy Call Center [phone] [place] [address] [facility] [address] [place] [address] Status post mitral valve replacement*; Paroxysmal atrial fibrillation (HCC); MSSA bacteremia; Longstanding persistent atrial fibrillation (HCC) Allergies Active Allergy Reactions Criticality Noted Date Comments Doxycycline 01/27/2020 Muscle rigidly Molds & Smuts Low 12/03/2019 Other reaction(s): Congested Pollen Extract Low 05/16/2022 Other reaction(s): Congested documented as of this encounter (statuses as of 10/28/2023) Medications Medication Sig Dispensed Refills Start Date End Date Status Vitamin E 400 units Tablet Take 1 Tablet by mouth in the morning. Active B Complex Vitamins (VITAMIN-B COMPLEX) Tablet Take 1 Tab by mouth daily. Active selenium 50 MCG TABS Take by mouth daily. Active Magnesium 400 MG Oral Capsule Take 1 Capsule by mouth in the morning. Active [place]-3 Fatty Acids (FISH OIL) 1000 MG Capsule Take 1 Capsule by mouth in the morning. Active Fluticasone Propionate 50 MCG/ACT Nasal Suspension (Flonase) Administer 2 Sprays into each nostril in the morning. Do not start before July 26, 2022. 15.8 mL 3 07/26/2022 Active Docusate Sodium 100 MG Oral Capsule (Colace) Take 1 Capsule by mouth 2 times a day as needed for Constipation. 10 Capsule 07/25/2022 Active Centrum Silver 50+Men Oral Tablet Take 1 Tablet by mouth in the morning. 90 Tablet 30 07/25/2022 Active Additional Information Patient not taking.Reported on 08/26/2023 Metamucil 28.3 % Oral Powder (Psyllium) Take by mouth. Active Potassium Chloride Abigail ER 10 MEQ Oral Tablet Extended Release Take 1 Tablet by mouth in the morning. 90 Tablet 3 08/29/2022 Active Finasteride 5 MG Oral Tablet (Proscar) Take 1 Tablet by mouth in the morning. 90 Tablet 1 09/13/2022 Active Cetirizine HCl 10 MG Oral Tablet (ZyrTEC)Indications: Seasonal allergic rhinitis due to pollen Take 1 Tablet by mouth in the morning. 90 Tablet 3 09/12/2022 Active Montelukast Sodium 10 MG Oral Tablet (Singulair)Indicatio ns:Seasonal allergic rhinitis due to pollen Take 1 Tablet by mouth at bedtime. 90 Tablet 3 09/12/2022 Active Atorvastatin Calcium 40 MG Oral Tablet (Lipitor)Indications :Dyslipidemia, goal LDL below 70 Take 1 Tablet by mouth every afternoon. 90 Tablet 3 09/12/2022 Active Cefadroxil 500 MG Oral Capsule (Duricef)Indications :Endocarditis due to methicillin susceptible Staphylococcus aureus (MSSA) Take 1 Capsule by mouth in the morning and 1 Capsule before bedtime. 90 Capsule 3 11/11/2022 Active Metoprolol Succinate ER 50 MG Oral Tablet Extended Release 24 Hour (toPROL XL) Take 1 Tablet by mouth in the morning and 1 Tablet before bedtime. 180 Tablet 3 11/14/2022 Active Additional Information Patient taking differently:50 mg Oral BID (.AM/PM),Patient is taking 12.5 mg twice a day, Reported on 02/03/2023 Escitalopram Oxalate 10 MG Oral Tablet (Lexapro)Indications :Current mild episode of major depressive disorder without prior episode (HCC) Take 1 Tablet by mouth in the morning. 90 Tablet 3 12/11/2022 Active Spironolactone 25 MG Oral Tablet (Aldactone)Indicatio ns:Chronic diastolic heart failure (HCC) Take 1 Tablet by mouth in the morning. 90 Tablet 3 12/11/2022 Active Systane 0.4-0.3 % Ophthalmic Solution (Artificial Tears) Instill into both eyes as needed for Dry eyes. Active Furosemide 40 MG Oral Tablet (Lasix) TAKE 1 TABLET IN THE MORNING AND 1 TABLET BEFORE BEDTIME 180 Tablet 1 04/11/2023 Active Allopurinol 100 MG Oral Tablet (Zyloprim)Indication s:Idiopathic chronic gout of multiple sites without tophus TAKE 2 TABLETS BY MOUTH IN THE MORNING AND 2 TABLETS BEFORE BEDTIME 360 Tablet 1 04/11/2023 Active Nirmatrelvir&Ritonav ir 300/100 20 x 150 MG & 10 x 100MG Oral Tablet Therapy Pack (Paxlovid (300/100)) Take 2 pink tablets of Nirmatrelvir and 1 white tablet of Ritonavir two times a day by mouth. 30 Tablet 05/24/2023 Active Triamcinolone Acetonide 0.1 % External Cream (Aristocort)Indicati ons:Xerosis cutis,Rash and nonspecific skin eruption Apply to rash on back and arms twice daily for 2 weeks and then apply daily on Fri,Sat,Sun 450 g 1 05/30/2023 Active Warfarin Sodium 10 MG Oral Tablet (Coumadin)Indication s:Chronic atrial fibrillation (HCC) Take one to one and one half tablet by mouth in the evening as instructed by [facility] 135 Tablet 1 06/03/2023 Active Budesonide-Formotero l Fumarate 160-4.5 MCG/ACT Inhalation Aerosol (Symbicort)Indicatio ns:Mild persistent asthma without complication Inhale 2 Puffs by mouth in the morning and 2 Puffs before bedtime. 30.6 g 4 08/18/2023 Active Albuterol Sulfate HFA 108 (90 Base) MCG/ACT Inhalation Aerosol SolutionIndications: Mild persistent asthma without complication Inhale 2 Puffs by mouth every 4 hours as needed for Cough, Shortness of Breath or Wheezing. 54 g 1 08/18/2023 Active Magnesium Oxide 400 MG Oral Capsule Take 1 Capsule by mouth in the morning. 30 Capsule 2 08/26/2023 Active Azithromycin 250 MG Oral Tablet (Zithromax Z-Buddy)Indications:As thma exacerbation Please take 500 mg by mouth on day one, followed by 250 mg by mouth for four days. 6 Tablet 08/27/2023 Active predniSONE 5 MG Oral Tablet (Deltasone) Take 4 tab Daily for 5 Days Then 3 Tab daily for 5 days Then 2 tab daily for 5 days Then 1 tabe daily for 5 days and STOP 50 Tablet 08/27/2023 Active Fluconazole 200 MG Oral Tablet (Diflucan)Indication s:Tinea cruris Take 1 Tablet by mouth once a week. 4 Tablet 09/11/2023 Active Clotrimazole-Betamet hasone 1-0.05 % External CreamIndications:Tin ea cruris Apply to rash on inner thighs twice daily for 10 days 45 g 1 09/11/2023 Active Tamsulosin HCl 0.4 MG Oral Capsule (Flomax)Indications: BPH with obstruction/lower urinary tract symptoms TAKE 1 CAPSULE IN THE MORNING 90 Capsule 2 10/23/2023 Active documented as of this encounter (statuses as of 10/28/2023) Active Problems Problem Noted Date Diagnosed Date Chronic diastolic heart failure 01/17/2023 Cerebrovascular disease, arteriosclerotic, post- stroke 01/17/2023 Longstanding persistent atrial fibrillation 12/25 Current mild episode of dave r depressive disorder without prior episode 12/11/2022 Congestive heart failure 08/20/2022 Acute bacterial endocarditis 08/20/2022 Cerebrovascular accident (CV A) due to embolism of cerebral artery 08/20/2022 Left hemiparesis 08/20/2022 Episode of recurrent major depressive disorder 0 08/20/2022 Status post mitral valve replacement 07/22/2022 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) 07/07/2022 MSSA bacteremia 07/07/2022 Lymphedema of left leg 12/06/2020 Paroxysmal atrial fibrillation 03/19/2020 Bilateral lower extremity edema 03/19/2020 BPH with obstruction/lower urinary tract symptom s 09/30/2019 Lumbar spinal stenosis 03/02/2019 History of pulmonary embolism 03/02/2019 Dyslipidemia 11/30/2018 Idiopathic chronic gout of multiple sites withou t tophus 12/12/2017 History of DVT (deep vein thrombosis) 10/22/2017 Overview: Left popliteal 07/13 HTN, goal below 130/80 05/29/2016 Aortic valve stenosis 02/12/2016 Asthma, mild persistent 02/20/2015 documented as of this encounter (statuses as of 10/28/2023) Resolved Problems Problem Noted Date Diagnosed Date Resolved Date Drug eruption 03/19/2020 07/21/2020 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 Non-traumatic rhabdomyolysis 01/07/2020 07/21/2020 LATRELL (acute kidney injury) 01/07/2020 Elevated liver enzymes 01/07/202007/21 Vaccination reaction 11/30/2019 021 Body mass index (BMI) of 40. 0 to 44.9 in adult 01/04/2019 03/02/2019 Overview: Per Obesity protocol Acute gout involving toe of right foot 10/22/2017 12/12/2017 Acute deep vein thrombosis ( DVT) of popliteal vein of left lower extremity 06/26/2017 10/22/2017 History of renal stone 03/27/201707/21 Recurrent major depressive d isorder, in partial remission 03/27/2017 11/30/2019 H/O migraine 03/27/2017 07/21/2020 H/O atopic dermatitis 03/27/20172020 Family history of malignant neoplasm of prostate 02/20/2015 03/27/2017 Overview: (2) brothers Bacterial pneumonia 04/27/2013 03/27/20 17 Migraine 12/11/2009 03/27/2017 Dyslipidemia, goal to be determined 05/04/2009 09/08/2009 Overview: Per Lipid Taxonomy. ADVANCE DIRECTIVE INFORMATION 03/07/2009 03/27/2017 Overview: No, Advance Directive brochure given to patient. Mckeon's esophagus 06/07/2008 04/04/20 17 Other atopic dermatitis 08/24/200706/2016 Overview: ICD-10 update of inactive term PURE HYPERCHOLESTEROLEM 03/23/200404/25 Overview: Per Lipid Taxonomy. Major depressive disorder 09/09/2003 Overview: ICD-10 update of inactive term TUBULAR ADENOMA COLON POLYP 07/13/2003 03/27/2017 Asthma, mild persistent 04/18/200301/25 Chronic sinusitis 04/18/2003 11/30/2018 HTN, goal below 140/90 06/19/200105/29 Family history of other card iovascular diseases 06/19/2001 03/27/2017 Overview: ICD-10 update of inactive term GERD w/ Mckeon's esophagitis- 05/0211/18/2000 02/20/2015 Calculus of kidney 06/01/1999 7 LUMB-LUMBOSAC DISC DEGEN 03/12/199906/2016 Allergic rhinitis 06/29/1997 07/21/2020 documented as of this encounter (statuses as of 10/28/2023) Immunizations Name Administration Dates Next Due COVID-19 mRNA, LNP-s, No Pre serve, 2-Dose Series (Weaved) 02/21/2021,08/02/2020,07/05/2020 COVID-19, LNP-s, No Preserve , Rubio-sucrose, Ages 12+ (Pfizer) 08/30/2021 H1N1 2009 Influenza, IM 06/08/2009 Pneumococcal Conjugate Vacc, 13 Valent (Prevnar) 02/20/2015 Pneumococcal Polysaccharide PPV23 (Pneumovax) 02/03/2012 Season Influenza, Quad, PF, Adjuvanted, 65+ Yrs, IM (FLUAD) 02/01/2020 Seasonal Influenza Virus Vac cine, Unspecified Formulation 01/28/2019,01/28/2018,03/20/2017,01/25,02/20/2015,02/17/2014,03/16/20 13,02/03/2012,02/04/2011,02/15/2010,0 02/14/2009,05/03/2008,03/09/2007,03/11,04/11/2004,03/14/2003, 1,05/01/2000,03/06/1999 Seasonal Influenza, PF, 6 M & above, IM , (FluLaval or Fluzone) 01/28/2018,03/20/2017 Seasonal Influenza, Quadriva lent Hd (Fluzone Hd) 02/03/2023,02/14/2022,02/13/2021 Seasonal Influenza, Quadriva lent, No Preserve, IM 02/22/2016,02/20/2015 Seasonal Influenza, Split, I IV3, With Preserve, Inj 02/17/2014,03/16/2013,02/03/2012,01/24,02/15/2010,02/14/2009,05/03/20 08,03/09/2007 02/05/2012 Seasonal Influenza, Trivalen t, Adjuvanted, 65+ yrs 01/28/2019 TD, Preservative Free 12/14/2001 TDAP (age 10 and older)(Boostrix) 10/17/2022,02/2012 Varicella Zoster Vaccine (Adult) 12/14/2012 Zoster Vaccine Recombinant (Shingrix) 11/22/2019 documented as of this encounter Social History Tobacco Use Types Packs/Day Years Used Date Smoking Tobacco: Former Cigarettes 1 20 0 05/26/1956 - 05/26/1976 Pipe Cigars Smokeless Tobacco: Never Comments:quit early Alcohol Use Standard Drinks/Week Comments Yes 11.7 (1 standard drink = 0.6 oz pure alcohol) rare PHQ-2 Answer Date Recorded PHQ Adult Total Score 2 07/21/2020 Hunger Vital Sign Answer Date Recorded Within the past 12 months, y ou worried that your food would run out before you got the money to buy more. Never true 01/18/20 23 Within the past 12 months, t he food you bought just didn't last and you didn't have money to get more. Never true 01/17/2023 Sex and Gender Information Value Date Recorded Sex Assigned at Male 11/30/2018 8:32 AM EDT Gender Identity Male 11/30/2018 8:32 AM EDT Sexual Orientation Straight 01/17/2023 10 :13 AM EDT Job Start Date Occupation Industry Not on file Not on file Not on file documented as of this encounter Functional Status Functional Status Response Date of Assess ment Are you deaf or do you have serious difficulty h earing? No 07/07/2022 Are you blind or do you have serious difficulty seeing, even when wearing glasses? No 07/07/2022 Do you have serious difficul ty walking or climbing stairs? (5 years old or older) No 07/08/2022 Do you have difficulty dress ing or bathing? (5 years old or older) No 07/07/2022 Because of a physical, menta l, or emotional condition, do you have difficulty doing errands alone such as visiting a doctor s office or shopping? (15 years old or older) No 07/07/19 Cognitive Status Response Date of Assessm ent Because of a physical, menta l, or emotional condition, do you have serious difficulty concentrating, remembering, or making decisions? (5 years old or older) No 07/07/2022 documented as of this encounter Progress Notes * Kely Dunlap CPhT - 10/28/2023 1:01 PM EDT Contacts Type Contact Phone/Fax 10/28/2023 12:55 PM EDT Phone (Outgoing) Jordin Mckeon (Self) [phone] (M) Spoke to Patient Subjective Patient Findings Negatives: Signs/symptoms of thrombosis, Signs/symptoms of bleeding, Change in health, Change in alcohol use, Change in activity, Upcoming invasive procedure, Missed doses, Extra doses, Change in medications, Change in diet/appetite, Bruising Advised patient to contact Anticoagulation Clinic if any unusual bruising or bleeding, recent illness, changes in medication, or questions/concerns. PT/INR results, Coumadin dose instructions, and next PT/INR date communicated as noted by Pharmacist: Yes KELY DUNLAP CPhT 10/28/2023, 1:01 PM * Karime Rodriguez [facility] - 10/28/2023 12:16 PM EDT Images from the original note were not included. Coumadin Clinic (region specific) Objective Current Warfarin Dose As of 10/28/2023 Warfarin maintenance plan: 10 mg (10 mg x 1) every Tue, [place]; 15 mg (10 mg x 1.5) all other days INR Result As of 10/28/2023 INR goal: 2.0-3.0 INR used for dosin.1 (10/28/2023) Assessment & Plan Warfarin Plan As of 10/28/2023 Full warfarin instructions: 10/27: 20 mg; 10/28: 20 mg; Otherwise 10 mg every Tue; 15 mg all other days Next INR check: 11/06/2023 Repeat PT/INR in 1.5 week(s) Weekly dose: increased Additional Dosing Information: Description GML MTuTh Fluconazole 200mg once weekly x 4 weeks-started 10/01/23 Tech to contact patient with dose instructions as noted. Karime Rodriguez RPh 10/28/2023, 12:17 PM documented in this encounter Plan of Treatment Upcoming Encounters Date Type Department Care Team (Late st Contact Info) Description 11/06/2023 7:05 AM EDT Laboratory Lab Mobile Phlebotomy [facility] [address] [place] [address] [facility] Draw [address] [place] [address] 11/18/2023 9:40 AM EDT Office Visit Pulmonary Medicine, [facility] [address] [facility] [place] [address] Jose Alfredo Navarro MD [address] [place] [address] 12/10/2023 1:45 PM EDT Office Visit Urology, [facility] [address] [facility] [place] [address] Stuart Cullen MD [address] [place] [id number] 12/15/2023 9:00 AM EDT Office Visit Cardiology, [facility] [address] [place] [address] Liz Montanez CRNP [address] [place] [address] Scheduled Procedures Name Priority Associated Diagnoses Date/Ti me COLONOSCOPY FLEXIBLE PROXIMA L DIAGNOSTIC Recall History of colonic polyps Health Maintenance Due Date Last Done Comments Zoster Vaccines (3 of 3) 01/17/2020 11/22/2019, 11/24 COVID-19 Vaccine (2022- season) 2023 02/17/2022, 08/30/2021, 02/21/2021, Additional history exists Mckeon's Esophagus Surveilance 02/14/2023 02/15/2020, 06/06/2009, 05/12/2008 GFR 08/25/2024 08/26/2023, 03/27, 10/17/2022, Additional history exists Albumin/Creatinine Ratio 09/03/2024 09/03/2021 Colonoscopy 04/30/2026 04/30/2023, 03/27, 04/20/2019, Additional history exists DTaP,Tdap,and Td Vaccines (3 - Td or Tdap) 10/17/2032 10/17/2022, 02/03/2012, 12/14/2001, Additional history exists Hepatitis B Completed 03/14/2003, 12/24, 12/14/2001 Pneumococcal Vaccine: 65+ Years Completed 02/20/2015, 02/03/2012, 03/11/2005 Influenza Vaccine (FLU shot) Completed 02/03/2023, 02/14/2022, 02/13/2021, Additional history exists RETIRED - COLONOSCOPY-EVERY 2 YRS AGES 18-100 Discontinued 04/30/2023, 04/20/2019, 04/20/2019, Additional history exists GARDASIL-HPV IMMUNIZATION SERIES Aged Out No longer eligible based on patient's age to complete this topic MENINGOCOCCAL (MENACTRA/MENVEO) Aged Out No longer eligible based on patient's age to complete this topic documented as of this encounter Medical Devices Implanted Type Area Account Representative Device Identifier Shelf Expiration Date Model / Serial / Lot Suture Steel 6 B&S19 [id number] - [id number] Implanted:Qty : 8 on 07/19/2022 by Jordin Parish MD at OR [facility] [place] N/A: Sternum JNJ : [employer] 02/22/2027 [id number] / / [id number] Valve Heart Mitral Epic 31mm - [id number] - [id number] Implanted:Qty : 1 on 07/19/2022 by Jordin Parish MD at OR [facility] [place] N/A: Heart [facility] STEPH : CARDIOVASCULAR [id number] 01/24/2026 [id number] 00 / [id number] / [id number] documented as of this encounter Visit Diagnoses Diagnosis Status post mitral valve replacement- Primary Heart valve replaced by other means Paroxysmal atrial fibrillation (HCC) Atrial fibrillation MSSA bacteremia Longstanding persistent atrial fibrillation (HCC) documented in this encounter Advance Directives * Full Code (Latest Code Status on File) Date Activated Date Inactivated Comments 07/19/2022 3:00 PM 07/25/2022 5:22 PM This order re flects the patients wishes and were consensually agreed upon. Question Answer Comments Discussion of Advance Directives occurred with: Patient * Full Code Date Activated Date Inactivated Comments 07/07/2022 12:46 AM 07/19/2022 2:59 PM This order reflects the patients wishes and were consensually agreed upon. Question Answer Comments Discussion of Advance Directives occurred with: Patient Care Teams Warm In Worker Relationship Specialty Start Date End Date Judi Broderick MD [address] [place] [address] PCP - General Family Medicine 02/24/23 documented as of this encounter
--- OUTSIDE RECORDS SUMMARY | 2023-11-08 13:55 | External Medical Summary | Summary of Care ---
Author Name Unknown Organization [facility] Address [address] [place] [address] Phone [phone] Care Team Providers Care Workday Financials Consultant Name Role Phone Judi Broderick MD Primary Care Provider [phone] Reason for Visit * Reason Comments Acute Asthma flare x 2-3 d ays. Wheezing even in sleep. Using Symbicort inhaler. He ran out of Albuterol. Encounter Details Date Type Department Care Team (Late Contact Info) Description 10/29/2023 3:20 PM EDT Office Visit Family Practice [facility] [address] [facility] [place] [address] Sarita Simon MD [address] [facility] [place] [address] Moderate persistent asthma with exacerbation*; Mild persistent asthma without complication; Chronic diastolic heart failure (HCC); Left hemiparesis (HCC); Morbid (severe) obesity due to excess calories (HCC) Allergies Active Allergy Reactions Criticality Noted Date Comments Doxycycline 01/27/2020 Muscle rigidly Molds & Smuts Low 12/03/2019 Other reaction(s): Congested Pollen Extract Low 05/16/2022 Other reaction(s): Congested documented as of this encounter (statuses as of 10/29/2023) Medications Medication Sig Dispensed Refills Start Date End Date Status Vitamin E 400 units Tablet Take 1 Tablet by mouth in the morning. Active B Complex Vitamins (VITAMIN-B COMPLEX) Tablet Take 1 Tab by mouth daily. Active selenium 50 MCG TABS Take by mouth daily. Active Magnesium 400 MG Oral Capsule Take 1 Capsule by mouth in the morning. Active Warren-3 Fatty Acids (FISH OIL) 1000 MG Capsule [...] the morning. 90 Tablet 30 07/25/2022 Active Metamucil 28.3 % Oral Powder (Psyllium) Take by mouth. Active Potassium Chloride Abigail ER 10 MEQ Oral Tablet Extended Release Take 1 Tablet by mouth in the morning. 90 Tablet 3 08/29/2022 Active Finasteride 5 MG Oral Tablet (Proscar) Take 1 Tablet by mouth in the morning. 90 Tablet 1 09/13/2022 Active Cetirizine HCl 10 MG Oral Tablet (ZyrTEC)Indications :Seasonal allergic rhinitis due to pollen Take 1 Tablet by mouth in the morning. 90 Tablet 3 09/12/2022 Active Montelukast Sodium 10 MG Oral Tablet (Singulair)Indicati ons:Seasonal allergic rhinitis due to pollen Take 1 Tablet by mouth at bedtime. 90 Tablet 3 09/12/2022 Active Atorvastatin Calcium 40 MG Oral Tablet (Lipitor)Indication s:Dyslipidemia, goal LDL below 70 Take 1 Tablet by mouth every afternoon. 90 Tablet 3 09/12/2022 Active Cefadroxil 500 MG Oral Capsule (Duricef)Indication s:Endocarditis due to methicillin susceptible Staphylococcus aureus (MSSA) [...] 02/03/2023 Escitalopram Oxalate 10 MG Oral Tablet (Lexapro)Indication s:Current mild episode of major depressive disorder without prior episode (HCC) Take 1 Tablet by mouth in the morning. 90 Tablet 3 12/11/2022 Active Spironolactone 25 MG Oral Tablet (Aldactone)Indicati ons:Chronic diastolic heart failure (HCC) Take 1 Tablet by mouth in the morning. 90 Tablet 3 12/11/2022 Active Systane 0.4-0.3 % Ophthalmic Solution (Artificial Tears) Instill into both eyes as needed for Dry eyes. Active Furosemide 40 MG Oral Tablet (Lasix) TAKE 1 TABLET IN THE MORNING AND 1 TABLET BEFORE BEDTIME 180 Tablet 1 04/11/2023 Active Allopurinol 100 MG Oral Tablet (Zyloprim)Indicatio ns:Idiopathic chronic gout of multiple sites without tophus TAKE 2 TABLETS BY MOUTH IN THE MORNING AND 2 TABLETS BEFORE BEDTIME 360 Tablet 1 04/11/2023 Active Triamcinolone Acetonide 0.1 % External Cream (Aristocort)Indicat ions:Xerosis cutis,Rash and nonspecific skin eruption Apply to rash on back and arms twice daily for 2 weeks and then apply daily on Fri,Sat,Sun 450 g 1 05/30/2023 Active Warfarin Sodium 10 MG Oral Tablet (Coumadin)Indicatio ns:Chronic atrial fibrillation (HCC) Take one to one and one half tablet by mouth in the evening as instructed by [facility] 135 Tablet 1 06/03/2023 Active Magnesium Oxide 400 MG Oral Capsule Take 1 Capsule by mouth in the morning. 30 Capsule 2 08/26/2023 Active Tamsulosin HCl 0.4 MG Oral Capsule (Flomax)Indications :BPH with obstruction/lower urinary tract symptoms TAKE 1 CAPSULE IN THE MORNING 90 Capsule 2 10/23/2023 Active Albuterol Sulfate HFA 108 (90 Base) MCG/ACT Inhalation Aerosol SolutionIndications :Moderate persistent asthma with exacerbation Inhale 2 Puffs by mouth every 4 hours as needed for Cough, Shortness of Breath or Wheezing. 54 g 1 10/29/2023 Active predniSONE 20 MG Oral Tablet (Deltasone)Indicati ons:Moderate persistent asthma with exacerbation Take 4 tabs daily for 2 days, 3 tabs daily for 2 days, 2 tabs daily for 2 days, 1 tab daily for 2 days 20 Tablet 10/29/2023 Active Budesonide-Formoter ol Fumarate 160-4.5 MCG/ACT Inhalation Aerosol (Symbicort)Indicati ons:Mild persistent asthma without complication Inhale 2 Puffs by mouth in the morning and 2 Puffs before bedtime. 30.6 g 4 10/29/2023 Active Nirmatrelvir&Ritona vir 300/100 20 x 150 MG & 10 x 100MG Oral Tablet Therapy Pack (Paxlovid (300/100)) Take 2 pink tablets of Nirmatrelvir and 1 white tablet of Ritonavir two times a day by mouth. 30 Tablet 05/24/2023 10/29/19 24 Discontinu ed(Medicat ion List Clean Up) Budesonide-Formoter ol Fumarate 160-4.5 MCG/ACT Inhalation Aerosol (Symbicort)Indicati ons:Mild persistent asthma without complication Inhale 2 Puffs by mouth in the morning and 2 Puffs before bedtime. 30.6 g 4 08/18/2023 10/29/19 24 Discontinu ed(Refill) Albuterol Sulfate HFA 108 (90 Base) MCG/ACT Inhalation Aerosol SolutionIndications :Mild persistent asthma without complication Inhale 2 Puffs by mouth every 4 hours as needed for Cough, Shortness of Breath or Wheezing. 54 g 1 08/18/2023 10/29/19 24 Discontinu ed(Refill) Azithromycin 250 MG Oral Tablet (Zithromax Z-Buddy)Indications:A sthma exacerbation Please take 500 mg by mouth on day one, followed by 250 mg by mouth for four days. 6 Tablet 08/27/2023 10/29/19 24 Discontinu ed(Medicat ion List Clean Up) predniSONE 5 MG Oral Tablet (Deltasone) Take 4 tab Daily for 5 Days Then 3 Tab daily for 5 days Then 2 tab daily for 5 days Then 1 tabe daily for 5 days and STOP 50 Tablet 08/27/2023 10/29/19 24 Discontinu ed(Medicat ion List Clean Up) Fluconazole 200 MG Oral Tablet (Diflucan)Indicatio ns:Tinea cruris Take 1 Tablet by mouth once a week. 4 Tablet 09/11/2023 10/29/19 24 Discontinu ed(Medicat ion List Clean Up) Clotrimazole-Betame thasone 1-0.05 % External CreamIndications:Ti ar cruris Apply to rash on inner thighs twice daily for 10 days 45 g 1 09/11/2023 10/29/19 Discontinu ed(Medicat ion List Clean Up) documented as of this encounter (statuses as of 10/29/2023) Active Problems Problem Noted Date Diagnosed Date Morbid (severe) obesity due to excess calories 0 10/29/2023 Chronic diastolic heart failure 01/17/2023 Cerebrovascular disease, [...] as of this encounter (statuses as of 10/29/2023) Resolved Problems Problem Noted Date Diagnosed Date [...] as of this encounter (statuses as of 10/29/2023) Immunizations Name Administration Dates Next Due COVID-19 mRNA, LNP-s, No Pre serve, 2-Dose Series (Pfizer) 02/21/2021,08/02/2020,07/05/2020 COVID-19, LNP-s, No Preserve , Rubio-sucrose, [...] on file documented as of this encounter Last Filed Vital Signs Vital Sign Reading Time Taken Comments Blood Pressure 104/78 10/29/2023 3:34 PM EDT Pulse 60 10/29/2023 3:34 PM EDT Temperature - - Respiratory Rate - - Oxygen Saturation 98% 10/29/2023 3:34 PM EDT Inhaled Oxygen Concentration - - Weight - - Height - - Body Mass Index - - documented in this encounter Functional Status Functional Status Response [...] (15 years old or older) No 07/07/19 23 Cognitive Status Response Date of Assessm ent Because of a physical, menta l, or emotional condition, do you have serious difficulty concentrating, remembering, or making decisions? (5 years old or older) No 07/07/2022 documented as of this encounter Progress Notes * Sarita Simon MD - 10/29/2023 3:38 PM EDT Images from the original note were not included. History of Present Illness Jordin Mckeon is a 78 year old male that presents for Acute (Asthma flare x 2-3 days. Wheezingeven in sleep. Using Symbicort inhaler. He ran out of Albuterol. ) Accompanied by Short of breath for 2-3 days. Takes symbicort year round, rarely misses dose. Albuterol helps. Wheezing at night, short of breath on exertion. No orthopnea. Productive cough and lots of nasal mucous.No swelling in ankles. No chest sx. Did lots of yardwork over the weekend. Was outside 8-10 hours aday both days. Friday was exhausted and could not get off the couch. Diagnosed with asthma in . Has needed oral prednisone a couple times in the last year. 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 INR sub therapeutic yesterday. History of congestive heart failure on furosemide, spironolactone. This feels different than heart failure to him. History of stroke, on statin Nicotine; quit cigarettes in 1974 Cannabis: medical card, tinctures Alcohol: 2-3 drinks/night. Mostly wine. Current medications and allergies reviewed. Past medical history and problem list reviewed. Physical Exam Vitals: 10/29/23 1534 Pulse: 60 SpO2: 98% BP: 104/78 BP Readings from Last 3 Encounters: 10/29/23 104/78 08/26/23 116/70 06/03/23 110/76 Wt Readings from Last 3 Encounters: 08/26/23 106.4 kg (234 lb 9.6 oz) 06/03/23 100.4 kg (221 lb 6.4 oz) 04/28/23 100.8 kg (222 lb 4 oz) Physical Exam Vitals and nursing note reviewed. Constitutional: General: He is not in acute distress. Appearance: Normal appearance. He is ill-appearing. HENT: Head: Normocephalic and atraumatic. Right Ear: Tympanic membrane, ear canal and external ear normal. There is no impacted cerumen. Left Ear: Tympanic membrane, ear canal and external ear normal. There is no impacted cerumen. Mouth/Throat: Mouth: Mucous membranes are moist. Pharynx: Oropharynx is clear. No oropharyngeal exudate. Eyes: General: No scleral icterus. Pupils: Pupils are equal, round, and reactive to light. Cardiovascular: Rate and Rhythm: Normal rate. Rhythm irregular. Heart sounds: Murmur heard. Pulmonary: Comments: Air movement is not great Does have breath sounds in all lung rosales No wheezing Out of breath climbing onto the exam table Musculoskeletal: Right lower leg: No edema. Left lower leg: Edema (Trace at ankle, reports this is chronic after knee replacement) present. Lymphadenopathy: Cervical: No cervical adenopathy. Skin: Coloration: Skin is not jaundiced or pale. Neurological: General: No focal deficit present. Mental Status: He is alert. Psychiatric: Mood and Affect: Mood normal. Behavior: Behavior normal. I have reviewed the following results: BNP, CMP, Lipid Panel, Hemoglobin A1C, TSH, and CBC Assessment and Plan Moderate persistent asthma with exacerbation Given yard work as the trigger, think this is most likely an asthma exacerbation. Need to also consider heart failure and possible PE. Can also consider infectious etiologies. Will get him started onprednisone, continue Symbicort, albuterol as needed. If symptoms are worse instructed to head direct ly to the emergency department. If not any better tomorrow will call and speak with the nurse. We could consider adding antibiotics. - Albuterol Sulfate HFA 108 (90 Base) MCG/ACT Inhalation Aerosol Solution; Inhale 2 Puffs by mouth every 4 hours as needed for Cough, Shortness of Breath or Wheezing. - predniSONE 20 MG Oral Tablet (Deltasone); Take 4 tabs daily for 2 days, 3 tabs daily for 2 days, 2 tabs daily for 2 days, 1 tab daily for 2 days Mild persistent asthma without complication - Budesonide-Formoterol Fumarate 160-4.5 MCG/ACT Inhalation Aerosol (Symbicort); Inhale 2 Puffs by mouth in the morning and 2 Puffs before bedtime. Chronic diastolic heart failure (HCC) Left hemiparesis (HCC) Morbid (severe) obesity due to excess calories (HCC) Wrap-Up Time: I spent a total of 20-29 minutes (exact time 23 mins) on the date of service in preparation, delivery, and documentation of the care provided to Jordin Mckeon excluding any time spent in the performance of separately billed services. documented in this encounter Plan of Treatment Upcoming Encounters Date Type Department Care Team (Late st Contact Info) Description 11/06/2023 7:05 AM EDT Laboratory Lab Mobile Phlebotomy [facility] [email or web address] [place] [address] [facility], [facility] Mobile Home Draw [email or web address] [place] [address] 11/07/2023 6:00 AM EDT Anticoagulation [facility] [place] [address] [place] [address] [place] [address] 11/18/2023 9:40 AM EDT Office Visit Pulmonary Medicine, [facility] [address] [facility] [place] [address] [facility] Nav[facility] [address] [facility] [address] 12/10/2023 1:45 PM EDT Office Visit Urology, [facility] [address] [facility] [place] [address] Stuart Cullen MD [address] [facility] [address] [place] [address] 12/15/2023 9:00 AM EDT Office Visit Cardiology, [facility] [address] [place] [address] Liz Montanez CRNP [address] [place] [address] Scheduled Procedures Name Priority Associated Diagnoses Date/Ti me COLONOSCOPY FLEXIBLE PROXIMA L DIAGNOSTIC Recall History of colonic polyps Health Maintenance Due Date Last Done Comments Zoster Vaccines (3 of 3) 01/17/2020 11/22/2019, 11/24 COVID-19 Vaccine ( season) 2023 02/17/2022, 08/30/2021, 02/21/2021, Additional history [...] this encounter Medical Devices Implanted Type Area Unemployment Claims Adjudicator Device Identifier Shelf Expiration Date Model / Serial / Lot Suture Steel 6 B&S19 M654g - [id number] Implanted:Qty : 8 on 07/19/2022 by Jordin Parish MD at [place] [facility] [place]A: Sternum JNJ : [employer] 02/22/2027 M654G / / [id number] Valve Heart Mitral Epic 31mm - [id number] - [id number] Implanted:Qty : 1 on 07/19/2022 by Jordin Parish MD at [place] [facility] [place] N/A: Heart [facility] : CARDIOVASCULAR [id number] 01/24/2026 P056-23Y- 00 / [id number] / [id number] documented as of this encounter Visit Diagnoses Diagnosis Moderate persistent asthma with exacerbation- Primary Unspecified asthma, with exacerbation Mild persistent asthma without complication Unspecified asthma Chronic diastolic heart failure (HCC) Chronic diastolic heart failure Left hemiparesis (HCC) Hemiplegia, unspecified, affecting unspecified side Morbid (severe) obesity due to excess calories (HCC) documented in this encounter Advance Directives [...] Advance Directives occurred with: Patient Care Teams Workday Financials Consultant Relationship Specialty Start Date End Date Judi Broderick MD [address] [place], [place] [address] PCP - General Family Medicine 02/24/23 documented as of this encounter
--- OUTSIDE RECORDS SUMMARY | 2023-11-08 13:55 | External Medical Summary | Continuity of Care Document ---
Author Name Unknown Organization [facility] [address] [place], [place] [address] Address [address] [place] [phone] Care Team Providers Care Bookkeeping Service Sales Agent Name Role Phone Alex Steve Primary Care Physician [phone] Encounter [facility] [id number] Date(s): 10/23/23 - 10/23/23 [facility] [address] [id number] [facility] [address] [place] [address] Encounter Diagnosis Left ankle pain(Discharge Diagnosis) - 10/23/23 Discharge Disposition: Home or Self Care Attending Physician: MD Campbell Ravishankar E Allergies, Adverse Reactions, Alerts Substance Criticality Severity Reaction Reaction Severity Status doxycycline Unknown reaction A ctive Dust Active Pollen Active Mold Active Assessment and Plan Extracted from: Title:[facility] - L Ankle Author:MD Campbell Ravishankar E Date:10/23/23 1.Left ankle pain - XR showed no bony pathology/fracture, [facility] radiology read pending - Recommend lace-up ankle brace when weight bearing x 3 weeks then prn thereafter - Consider PT if refractory - Discussed compression for edema and elevation at night f/u PRN. Time: 30mins 5 - pre-visit chart review 20 - visit, inclusive of history, exam, and discussion of assessment/plan 5 - post-visit documentation/orders/coordination of care Medications Albuterol (Eqv-ProAir HFA) 90 mcg/inh inhalation aerosol Start: 05/05/23 2:20:00 PM EST Start Date: 05/05/23 Status: Ordered allopurinol 100 mg oral tablet Start: 11/13/18 2:48:00 PM EDT, 1 tab, PO, bid Start Date: 11/13/18 Status: Ordered atorvastatin 40 mg oral tablet Start: 05/05/23 2:19:00 PM EST Start Date: 05/05/23 Status: Ordered budesonide-formoterol 160 mcg-4.5 mcg/inh inhalation aerosol Start: 05/05/23 2:20:00 PM EST Start Date: 05/05/23 Status: Ordered cefadroxil 500 mg oral capsule Start: 05/05/23 2:19:00 PM EST Start Date: 05/05/23 Status: Ordered cetirizine 10 mg oral tablet Start: 05/23/23 12:48:00 PM EST, 90 each Start Date: 05/23/23 Status: Ordered colchicine 0.6 mg oral tablet Start: 11/13/18 2:48:00 PM EDT, 1 tab, PO, Daily, PRN: as needed for gout pain Start Date: 11/13/18 Status: Ordered escitalopram 10 mg oral tablet Start: 05/05/23 2:19:00 PM EST Start Date: 05/05/23 Status: Ordered Euflexxa 10 mg/mL intra-articular solution Start: 11/21/17 10:38:42 AM EDT, 20 mg =, intra-articular, q7days, Disp# 3 syringe, Refills: 0, Please authorize 3 injections for right knee, Dispensed to Patient Start Date: 11/21/17 Stop Date: 12/12/17 Status: Ordered finasteride 5 mg oral tablet Start: 05/05/23 2:18:00 PM EST Start Date: 05/05/23 Status: Ordered furosemide 40 mg oral tablet Start: 05/05/23 2:18:00 PM EST Start Date: 05/05/23 Status: Ordered indapamide 2.5 mg oral tablet Start: 11/13/18 2:48:00 PM EDT, 1 tab, PO, Daily Start Date: 11/13/18 Status: Ordered lisinopril 10 mg oral tablet Start: 10/27/12 1:11:00 PM EDT, 1 tab, PO, Daily Start Date: 10/27/12 Status: Ordered Metoprolol Succinate ER 50 mg oral tablet, extended release Start: 05/05/23 2:19:00 PM EST Start Date: 05/05/23 Status: Ordered montelukast 10 mg oral tablet Start: 05/05/23 2:18:00 PM EST Start Date: 05/05/23 Status: Ordered Nasonex 50 mcg/inh nasal spray Start: 10/27/12 1:10:00 PM EDT, 2 spray, intranasal, bid, PRN: as needed for allergy symptoms Start Date: 10/27/12 Status: Ordered spironolactone 25 mg oral tablet Start: 05/05/23 2:19:00 PM EST Start Date: 05/05/23 Status: Ordered tamsulosin 0.4 mg oral capsule Start: 05/05/23 2:19:00 PM EST Start Date: 05/05/23 Status: Ordered torsemide 20 mg oral tablet Start: 05/23/23 12:49:00 PM EST, 90 each Start Date: 05/23/23 Status: Ordered triamcinolone 0.1% topical cream Start: 08/13/17 2:16:00 PM EDT, 1 appl, topical, bid, Disp# 454 g, Refills: 0, Pharmacy: [facility] Start Date: 08/13/17 Status: Ordered unknown medication Start: 11/21/17 10:33:00 AM EDT, tumeric 500 mg daily Start Date: 11/21/17 Status: Ordered verapamil 40 mg oral tablet Start: 01/20/13 8:05:00 AM EDT, See Instructions, once a day Start Date: 01/20/13 Status: Ordered warfarin 10 mg oral tablet Start: 05/05/23 2:19:00 PM EST Start Date: 05/05/23 Status: Ordered Mental Status 10/23/23 Barriers to Learning one year None evide nt Mandatory Health Literacy Documentation Yes Health Literacy Communication Barriers N ever Primary Language Latvian Problem List Condition Confirmation Course Effective Dates Status H ealth Status Informant Asthma Confirmed Active Toe fracture Confirmed Active Osteoarthritis of knee Confirmed Active Depression Confirmed Active Environmental allergies Confirmed Active Follow-up exam Confirmed Active Foot pain, bilateral Confirmed Active Gout Confirmed Active S/P total knee replacement Confirmed Active Hamstring tendonitis at origin Confirmed Active Sacroiliitis Confirmed Active Knee pain, bilateral Confirmed Active Lumbosacral radiculopathy Confirmed Active Migraine 1 Confirmed Active Right wrist pain Confirmed Active Peripheral edema Confirmed Active 1migraine headaches Diagnosis Diagnosis Type Effective Dates Health Status Cl inical Service Informant Left ankle pain Discharge Diagnosis 10/23/23 Non-Specified Procedures Procedure Date Related Diagnosis Body Site Status Appendectomy Completed facial surgery Completed hiatal hernia repair Comp leted Left knee artho Completed right 5th finger tendon repair Completed sinus surgery Completed T & A Completed Vital Signs Most recent to oldest [Reference Range]: 1 Height 170 cm (10/23/23 3:39 PM) Patient Weight 105.0 kg (10/23/23 3:39 PM) Body Mass Index 36.33 kg/m2 (10/23/23 3:39 PM) Social History Social History Type Response Smoking Status Never smoked cigaret jeny Sex Male Ortho Outpt Note * MD Adrian, Sonia Barriga: PERFORM Event Display: Ortho Outpt Note Authored Date: [id number] Chief Complaint left ankle pain x several weeks, no injury History of Present Illness Jordin is a 78yoM here as a self referral for L ankle pain x several weeks without a known injury/trauma. He notes he did start doing more yardwork aroundthe time of injury. Pain is diffuse/generalized. Had L knee replaced in 2013 and had chronic swelling below ever since. Tylenol helps quite a bit. Balance/proprioception are intact. Pain on malleolar region posteriorly. Eversion produced pain as does plantar flexion. Review of Systems 14pt ROS reviewed/negative except as noted in HPI. Physical Exam Vitals & Measurements HT:170cm WT:105.0kg WT:105.000kg(Dosing) BMI:36.33 GENERAL APPEARANCE: The patient is alert, oriented and in no acute distress. VITALS: As above. HEENT: Head is normocephalic/atraumatic. CARDIOVASCULAR: +2 dp pulses. LUNGS: Respirations even and unlabored. EXTREMITIES: No cyanosis, clubbing, moderate to severe bilat edema. MUSCULOSKELETAL: Chronic edema limits exam but no obvious effusion/joint swelling. TTP along lateral malleolus posteriorly worse with ankle inversion passively and actively. No laxity on talar tilt or drawer testing, mild pain on tilt testing noted. Ambulated guarded. Grossly hyperpronated feet/flat foot architecture. NEUROLOGICAL: Grossly non-focal exam. SKIN: Warm and dry without any rash Assessment/Plan 1.Left ankle pain - XR showed no bony pathology/fracture, [facility] radiology read pending - Recommend lace-up ankle brace when weight bearing x 3 weeks then prn thereafter - Consider PT if refractory - Discussed compression for edema and elevation at night f/u PRN. Time: 30mins 5 - pre-visit chart review 20 - visit, inclusive of history, exam, and discussion of assessment/plan 5 - post-visit documentation/orders/coordination of care Problem List/Past Medical History Ongoing Asthma Depression Environmental allergies Follow-up exam Foot pain, bilateral Gout Hamstring tendonitis at origin Knee pain, bilateral Lumbosacral radiculopathy Migraine Osteoarthritis of knee Peripheral edema Right wrist pain S/P total knee replacement Sacroiliitis Toe fracture Procedure/Surgical History Appendectomy T & A right 5th finger tendon repair facial surgery hiatal hernia repairsinus surgeryLeft knee artho Medications albuterol(Albuterol (Eqv-ProAir HFA) 90 mcg/inh inhalation aerosol) allopurinol(allopurinol 100 mg oral tablet), 100 mg= 1 tab, PO, bid atorvastatin(atorvastatin 40 mg oral tablet) budesonide-formoterol(budesonide-formoterol 160 mcg-4.5 mcg/inh inhalation aerosol) cefadroxil(cefadroxil 500 mg oral capsule) cetirizine(cetirizine 10 mg oral tablet) colchicine(colchicine 0.6 mg oral tablet), 0.6 mg= 1 tab, PO, Daily, PRN escitalopram(escitalopram 10 mg oral tablet) finasteride(finasteride 5 mg oral tablet) furosemide(furosemide 40 mg oral tablet) indapamide(indapamide 2.5 mg oral tablet), 2.5 mg= 1 tab, PO, Daily lisinopril(lisinopril 10 mg oral tablet), 10 mg= 1 tab, PO, Daily metoprolol(Metoprolol Succinate ER 50 mg oral tablet, extended release) mometasone nasal(Nasonex 50 mcg/inh nasal spray), 2 spray, intranasal, bid, PRN montelukast(montelukast 10 mg oral tablet) sodium hyaluronate(Euflexxa 10 mg/mL intra-articular solution), 20 mg, intra- articular, q7days spironolactone(spironolactone 25 mg oral tablet) tamSULOsin(tamsulosin 0.4 mg oral capsule) torsemide(torsemide 20 mg oral tablet) triamcinolone topical(triamcinolone 0.1% topical cream), 1 appl, topical, bid unknown medication verapamil(verapamil 40 mg oral tablet), See Instructions warfarin(warfarin 10 mg oral tablet) Allergies Dust Mold Pollen doxycyclineUnknown reaction Social History Smoking Status Never smoked cigarettes Family History Heart disease: Unknown. Stroke: Unknown. Health Status Family Member(s) Recommendations Health Maintenance Pending(in the next year) OverDue Adult Influenza Vaccine due11/22/22and every 1year Due Adult COVID-19 Vaccination due10/23/23Unknown Frequency Adult Social Determinants of Health Screening due10/23/23Unknown Frequency Adult Tdap/Td Vaccine due10/23/23Unknown Frequency Falls Plan of Care due10/23/23Unknown Frequency Hepatitis C Screening due10/23/23One-time only Lipid Screening due10/23/23Unknown Frequency Medicare Annual Wellness Visit due10/23/23and every 1year Pneumococcal Vaccine Older Adults due10/23/23One-time only Shingles Vaccine due10/23/23One-time only Satisfied(in the past 1 year) Satisfied Body Mass Index on10/23/23.Satisfied by [facility] Electronic Signature on File CC: Alex Steve DO [address] [address] * Electronically Reviewed/Signed by: Sonia Campbell MD Author Signature Dt/Tm:10/23/2023 04:19 PM Department of Family Medicine [facility] Patient Care team information Care Team Personnel Name: DO Steve Dominic Position: Referring DIRECT Member Role: Primary Care Provider Address: Address: [address] [address] Name: YOHAN Ramey Christina L Position: Physician - Podiatry Member Role: Lifetime Relationship Address: Address: [address] [address] [place] Care Team Related Persons Name: DANIA VARNER Address: [place] Address: home [address] [id number] [place], [place] [id number] Name: DANIA VARNER Address: home [address] [facility] [address] [place], [place] [id number]
--- OUTSIDE RECORDS SUMMARY | 2023-11-08 13:55 | External Medical Summary ---
Author Name Unknown Address Unknown Organization [id number][facility] [address] [place] [id number] Laboratory Report Ordering Provider Test Date Status CIARAKEILY 10/28/2023 08:32:00 Final Standing order for pt/inr. < br/>Please draw pt/inr every 1 to 4 weeks as requested
Results to [facility]

Warfarin Therapy
INR: 2.0-3.0 conventional anticoagulation
INR: 2.5-3.5 high intensity anticoagulation Observation Date Value Abnormality Reference (Units ) Status PT 10/28/2023 08:32:00 14.4 11.6-15.2 (seconds) Final INR 10/28/2023 08:32:00 1.1 0.8-1.2 Final Performing Location [facility] [address] [place] [id number]
--- OUTSIDE RECORDS SUMMARY | 2023-11-08 13:55 | External Medical Summary ---
Author Name Unknown Address Unknown Organization [id number]:[facility] [place] [address] Laboratory Report Ordering Provider Test Date Status KEILY URBINA 11/06/2023 13:50:00 Final Standing order for pt/inr. < br/>Please draw pt/inr every 1 to 4 weeks as requested
Results to [facility]

Warfarin Therapy
INR: 2.0-3.0 conventional anticoagulation
INR: 2.5-3.5 high intensity anticoagulation Observation Date Value Abnormality Reference (Units ) Status PT 11/06/2023 13:50:00 19.8 Above high normal 11 .6-15.2 (seconds) Final INR 11/06/2023 13:50:00 1.7 Above high normal 0. 8-1.2 Final Performing Location [facility] [place] [address]
[2023-11-08] MEDS: WARFARIN SOD 7.5 MG TAB PO SCH (16:37)
[2023-11-08] MEDS: CEFADROXIL 500 MG PO SCH (21:02)
[2023-11-09 08:01] LABS: INR 2.4 (0.9-1.1)
[2023-11-09 08:22] LABS: BUN Creatinine Ratio 26.2 (10-20); Calcium 9.4 mg/dl (8.6-10.3); Creatinine Clr Calc Pharmacy 64.1 ml/min; Est GFR (African American) 79.7 ml/min; Est GFR (Non-African American) 68.8 ml/min; Potassium 4.1 mmol/L (3.5-5.1)
[2023-11-09] MEDS: FUROSEMIDE 40 MG TAB PO SCH (08:54)
--- NOTE | 2023-11-09 09:56 | Discharge Summary ---
Discharge Summary Date of Service November 09, 2023 Principal Dx & Hospital Course #1 = Principal Diagnosis (1) Acute heart failure with preserved ejection fraction (HFpEF): (2) Atrial fibrillation, controlled: (3) Asthma: (4) Aortic stenosis: (5) HTN (hypertension): (6) BPH w urinary obs/LUTS: Plan Patient was admitted to the hospital on telemetry. He remained in his chronic atrial fibrillation. He was aggressively diuresed with IV Lasix. With this intervention his shortness of breath and edema significantly improved. Cardiology consultation was obtained. Patient underwent echocardiogram. Confirmed normal ejection fraction. Some mild to moderate valvular changes but nothing that required acute intervention. Patient continued to be diuresed. He diuresed over 5 kg while here in the hospital. Patient had recently been treated for an upper respiratory infection. Treated with steroids and exacerbation of his asthma. I suspect this is acute event that caused his heart failure to decompensate acutely. He has recovered from that acute upper respiratory infection. No significant wheezing on physical exam. On the morning of discharge he is on room air. His shortness of breath had resolved. Still had some ankle edema. Patient admits to not weighing himself on a regular basis. It appears that he still is above what he considers a dry weight. We discussed salt restriction and fluid restriction. We discussed following up with heart failure clinic. Patient was agreeable to this. Patient will be discharged home with an increased dose of his Lasix over the next 3 days and then he can resume his usual dosing. Given instructions to weigh himself daily and follow-up with heart failure clinic. He will continue his usual warfarin dosing. Continue monitoring his INR per his usual process. Follow-up with his PCP. Notes For Next Care Provider Continue to encourage patient to monitor weight and fluid intake and salt intake. Continue to encourage patient to follow with heart failure clinic Medication Changes From Visit Increase your Lasix to 1-1/2 tablets 2 times daily for 3 days then resume 1 tablet 2 times daily Increase your potassium replacement as ordered. Admission HPI Per Admitting Provider This is a 78yo M with a PMH of asthma, paroxysmal atrial fibrillation anticoagulation, HFpEF, hypertension, aortic valve stenosis, history of mitral valve replacement, depression, history of CVA with left hemiparesis, BPH and other medical problems listed below who presents from clinic due to abnormal EKG. Patient has been short of breath for the past 2 weeks and was treated with a steroid course for asthma exacerbation. Still having some dyspnea on exertion and sharp left chest pain radiating to his side. States pain is intermittent, dull 2/10 pain that does not seem to be worsened with activity. EKG done in outpatient setting earlier today showing rate controlled A-fib with T wave inversion in anterior leads, new from last EKG in system January 2023. Sent to ED for further evaluation. Since arrival here, chest pain has not recurred. Still feeling short of breath. Some swelling noted at ankles but not too far off baseline, per patient. 2D echo from June 2022 shows preserved EF 60 to 64%. Moderate aortic valve sclerosis present with mild stenosis. No recent illness. No F/C, lightheadedness, palpitations, N/V, abd pain, dysuria, diarrhea or constipation. Admission Exam Per Admitting Provider See H&P Discharge Exam Constitutional: Alert HEENT: Mucous membranes moist. Lungs: Clear to auscultation, decreased, no wheezes rales or rhonchi CV: S1-S2, regular rate, irregular rhythm Abdomen: Soft, nontender, nondistended Extremities: 1+ ankle pretibial edema Neuro: Baseline functioning deficits from previous remote stroke Psych: Cooperative, normal mood Updated Medication List Medication Instructions Recorded Confirmed Type albuterol sulfate 90 mcg/actuation 2 inh inhalation Q4 PRN sob 12/30/19 11/07/23 History aerosol inhaler allopurinol 100 mg tablet 200 mg PO BID 12/30/19 11/07/23 History cetirizine 10 mg tablet 10 mg PO QAM 12/30/19 11/07/23 History montelukast 10 mg tablet 10 mg PO HS 07/03/22 11/07/23 History (Singulair) atorvastatin 40 mg tablet 40 mg PO QPM 10/07/22 11/07/23 History budesonide-formoterol HFA 160 2 puff inhalation BID 10/07/22 11/07/23 History mcg-4.5 mcg/actuation aerosol inhaler (Symbicort) docusate sodium 100 mg capsule 100 mg PO BID PRN Constipation 10/07/22 11/07/23 History escitalopram oxalate 10 mg tablet 10 mg PO QAM 10/07/22 11/07/23 History fluticasone propionate 50 2 spray intranasal DAILY PRN 10/07/22 11/07/23 History mcg/actuation nasal Congestion spray,suspension magnesium 200 mg tablet 400 mg PO DAILY 10/07/22 11/07/23 History pdvhchih-ne-fwsey 300 mcg-K 60 1 tab PO DAILY 10/07/22 11/07/23 History mcg-lycop 600 mcg-lutein 300 mcg tablet (Centrum Silver Men) potassium chloride 10 mEq 10 meq PO DAILY 10/07/22 11/07/23 History capsule,extended release psyllium 1 packet PO DAILY 10/07/22 11/07/23 History selenium 50 mcg tablet 50 mcg PO DAILY 10/07/22 11/07/23 History vitamin B complex 1 tab PO DAILY 10/07/22 11/07/23 History vitamin E 400 unit tablet 400 unit PO DAILY 10/07/22 11/07/23 History cefadroxil 500 mg capsule 500 mg PO BID #60 caps 10/16/22 11/07/23 Rx spironolactone 25 mg tablet 25 mg PO DAILY #30 tabs 10/16/22 11/07/23 Rx finasteride 5 mg tablet 5 mg PO DAILY #90 tabs 11/28/22 11/07/23 Rx tamsulosin 0.4 mg capsule 0.4 mg PO DAILY #90 caps 11/28/22 11/07/23 Rx furosemide 40 mg tablet 40 mg PO BID #60 tabs 01/12/23 11/07/23 Rx warfarin 5 mg tablet 10 mg (2 x 5 mg) PO DAILY@1600 #60 01/12/23 11/07/23 Rx tabs metoprolol succinate 25 mg 50 mg PO BID 11/07/23 11/07/23 History tablet,extended release 24 hr furosemide 40 mg tablet (Lasix) 40 mg PO BID #90 tabs 11/09/23 Rx Hospital Stay Data Consultations 11/07/23 18:22 ED Decision to Admit Stat 11/07/23 19:24 Consult Cardiology Routine Diagnostic Imagining Performed Reviewed imaging, laboratory and diagnostic studies. Pertinent findings as below. Echocardiogram shows ejection fraction 50 to 55% with some left ventricular hypertrophy. Dilated left atrium. Bioprosthetic mitral valve that was moving normally. Mild to moderate aortic stenosis. INR 2.4 Potassium 4.1, creatinine 1.0 Pending Results Patient Have Any Pending Studies at Discharge: No Discharge Instructions Given to Patient (Per Discharging Provider) Call 911 and go to the Emergency Room if: * You have tightness or pain in your chest that does not go away with rest or Nitroglycerin * You are very short of breath even with rest Call your doctor if any of the following symptoms or problems start or get worse: * Shortness of breath or difficulty breathing * Wake up at night short of breath * Chest pain * Cough * Swelling of your hands, fee, or legs * More fatigued or tired with your normal activity * Palpitations - sudden fast heart beats WEIGHT * Weigh yourself every morning after using the bathroom. * Use the same scale. * Wear the same amount of clothing. * Write your weight down on your chart. * Call your doctor if you gain more than 2-3 pounds in 1-2 days. MEDICATIONS * Use this discharge instruction sheet for instructions. * Take your medications at the time your doctor ordered. * Do not skip a dose of your medicines. * If you miss a dose of medicine, take as soon as possible, but DO NOT DOUBLE A DOSE. * Read your medicine information when you get home. * Know all of the side effects of your medicine. * Call your doctor's office if you have any side effects. * Be sure all of your doctors know what medicine and herbs you take (including cold, flu, and herbal medicine). * Pain Medicine: If you do not get relief from your pain, please call your doctor for help. Take the following with you to your follow-up doctor appointments: * Weight Chart * Medication List * List of questions Do not drink excessive alcohol, beer or wine. Total Time Total Time Spent Total Time Spent (In Minutes): 38
--- NOTE | 2023-11-09 11:29 | Cardiology Progress Note ---
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 On chronic antibiotic suppression due to recurrent endocarditis Patient presents with signs and symptoms of sharp pain but worsening dyspnea is predominant complaint. Symptoms began approximately 2 weeks ago with possible asthmatic exacerbation treated with oral prednisone. 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 Presentation and enzymes not consistent with acute coronary syndrome suspect strain issues with decompensated congestive heart failure. Prior cardiac catheterization June 2022 with single-vessel branch coronary artery disease Plan: Continue medications as ordered including IV diuretics for additional day. Will review echocardiogram formally Given past atypical presentation with endocarditis would order blood cultures Cardiology will follow 11/09/2023 Acute on chronic valvular/diastolic heart failure clinically improved with IV diuretics. CHF instructions once again outlined Patient to begin following weights closely at home Agree with discharge with patient to increase diuretics report any acute weight gain Cardiology appointment scheduled 12/15/2023 Admission and Anticipated Discharge Date Admission Date: November 07, 2023 Subjective Patient was seen and personally examined. Slept well last night overall feels improved. Weight down but I's and O's not accurately reflecting. No chest pains or discomfort Review of Systems Review of Systems: All systems reviewed & are unremarkable except as noted in Subjective Physical Exam Constitutional: + obese; no acute distress Eyes: PERRL, conjunctivae normal, anicteric sclerae ENMT: external ear and nose normal, oropharynx normal Neck: trachea midline, no thyromegaly Respiratory: Auscultation: + diminished lung sounds and + rales Cardiovascular: Rate/Rhythm: + irregularly irregular Heart Sounds: + murmur (Grade 2 / 6 systolic no diastolic) Vessels: no JVD Extremities: + edema Gastrointestinal (Abdomen): normal bowel sounds, soft, nontender, no hepatosplenomegaly Musculoskeletal: no cyanosis or clubbing, extremities motor strength 5/5 Results & Data Vital Signs (Past 12 Hours) Vital Signs Temp Pulse Pulse Resp BP BP Pulse Ox 11/09/23 10:19 36.6 C 74 17 107/60 108/74 95 11/09/23 10:00 75 11/09/23 07:50 36.6 C 74 17 108/74 95 11/09/23 07:03 77 18 93 11/09/23 02:27 36.7 C 77 16 101/66 91 O2 Del Method 11/09/23 10:19 11/09/23 10:00 11/09/23 07:50 Room Air 11/09/23 07:03 Room Air 11/09/23 02:27 Room Air Laboratory Results Laboratory Results - last 24 hr 11/09/23 07:04 PT 24.0 H INR 2.4 H Sodium 137 Potassium 4.1 Chloride 101 Carbon Dioxide 32 Anion Gap 4 BUN 27 H Creatinine 1.03 Est Cr Clr Drug Dosing 64.1 Est GFR ( Amer) 79.7 Est GFR (Non-Af Amer) 68.8 BUN/Creatinine Ratio 26.2 H Glucose 99 Calcium 9.4
== END 2023-11-09 12:29 | disposition home or self-care (01) | DRG 291 ==
LOC: ED 15:11 → SUATTDRO 18:34 → INTOOBSV 18:34 → 2S 18:34

== ENCOUNTER 2024-04-14 06:42 | Observation (INO) ==
[2024-04-14] MEDS: OPTIRAY 320 125ml IV ONE (06:47)
--- NOTE | 2024-04-14 07:22 | CT Scan Report ---
EXAM: CT head/brain wo con CLINICAL HISTORY: neuro deficit, acute stroke suspected 112ml opti 320 TECHNIQUE: Multiple axial images are obtained from the skull base to the vertex without contrast. CT scan was performed according to ALARA (as low as reasonable achievable). COMPARISON: CT brain scan done on 07 March 2023 FINDINGS: There is cerebral atrophy. Old area of gliosis is seen in the right temporo-parietal lobe. Small calcified granuloma in right frontal lobe. No evidence of space occupying lesion, hemorrhage, edema, mass effect, midline shift, extra axial collection, or hydrocephalus is noted. Basal cisterns are symmetric and normal in size and configuration. There are scattered periventricular hypodensities as can be seen with chronic microvascular ischemic changes. The lyon-white matter differentiation is preserved. Visualized mastoid air cells are well aerated. Orbital contents are within normal limits. Bony structures are intact. Incidentally seen, left maxillary sinusitis IMPRESSION: 1. No evidence of acute intracranial abnormality is demonstrated. 2. Cerebral atrophy with Chronic microvascular ischemic changes. 3. Old area of gliosis is seen in the right tempero-parietal lobe 4. CT scan is negative for large territorial ischemic / hemorrhagic stroke. 5. Non contrast CT can be negative in the setting of hyperacute infarct/small ischemic infarct and further evaluation with diffusion weighted MRI is recommended as clinically appropriate. 6. No changes in the findings since previous CT scan done in February 2023 Electronically signed by Jan Rainey 04-14-2024 07:22 AM
[2024-04-14 07:24] LABS: iSTAT Creatinine 1.3 mg/dl (0.6-1.3); iSTAT Hemoglobin 14.6 g/dl (14.0-18.0); iSTAT Ionized Calcium 1.16 mmol/l (1.12-1.32); iSTAT Potassium 3.9 mmol/L (3.3-5.0)
[2024-04-14 07:26] LABS: Basophils # (auto) 0.04 K/uL (0.00-0.20); Basophils % (auto) 0.8 %; Eosinophils # (auto) 0.44 K/uL (0.00-0.50); Eosinophils % (auto) 8.3 %; Hematocrit (blood only) 44.2 % (42.0-52.0); Hemoglobin 14.4 g/dl (14.0-18.0); Immature Granulocytes # (auto) 0.03 K/uL (0.01-0.20); Immature Granulocytes % (auto) 0.6 %; Lymphocytes # (auto) 1.03 K/uL (1.20-3.40); Lymphocytes % (auto) 19.4 %; Mean Corpuscular Hgb Conc 32.6 g/dL (32.0-36.0); Mean Corpuscular Volume 98.2 fL (80.0-100.0); Mean Platelet Volume 9.7 fL (9.4-12.4); Monocytes # (auto) 0.57 K/uL (0.11-0.59); Monocytes % (auto) 10.8 %; Neutrophils # (auto) 3.19 K/uL (1.40-6.50); Neutrophils % (auto) 60.1 %; Platelet Count 122 K/uL (130-400); RDW Coefficient of Variation 14.7 % (11.5-14.5); RDW Standard Deviation 53.9 fL (36.4-46.3)
--- NOTE | 2024-04-14 07:33 | CT Scan Report ---
EXAM: CT angio head w con CLINICAL HISTORY: neuro deficit, acute stroke suspected 112ml opti 320 TECHNIQUE: Contrast enhanced thin slice CT angiography scan of the cerebral vessels was performed with intravenous contrast. Contiguous axial images were obtained. Reformatted coronal and sagittal images were also reviewed. If IV contrast material had not been administered, the likelihood of detecting abnormalities relevant to the patient's condition would have been substantially decreased. CT scan was performed according to ALARA (as low as reasonably achievable). COMPARISON: December 19:53:41 [employer] FINDINGS: Bilateral internal carotid arteries show normal course, caliber and opacification in the canalicular and cavernous part. Their division into the anterior cerebral artery and middle cerebral artery is defined. A1, A2 and M1, M2 segments are normal on both the sides. Bilateral vertebral arteries are seen to unite the form the basilar artery in a normal fashion. Basilar artery shows normal course, caliber and opacification. Its division into the posterior cerebral arteries is defined. Bilateral P1 and P2 segments are normal. Visualized venous structures show normal opacification. No evidence of intracranial aneurysm or AV malformation is seen. IMPRESSION: 1. No evidence of stenosis or aneurysm. No evidence of dissection. 2. No significant interval changes seen since prior study. Electronically signed by Jan Rainey 04-14-2024 07:33 AM
--- NOTE | 2024-04-14 07:34 | CT Scan Report ---
EXAM: CT angio neck with con CLINICAL HISTORY: neuro deficit, acute stroke suspected 112ml opti 320 TECHNIQUE: Contrast enhanced thin slice CT angiography scan of the carotid vessels was performed with intravenous contrast. Angiographic images were processed, 3D MIP images were acquired for interpretation.Contiguous axial images were obtained. Reformatted coronal and sagittal images were also reviewed. If IV contrast material had not been administered, the likelihood of detecting abnormalities relevant to the patients condition would have been substantially decreased. CT scan was performed according to ALARA (as low as reasonable achievable). COMPARISON: CT angio of Neck done on 04 January 2023 FINDINGS: Included great vessels of the aortic arch are grossly unremarkable. Common carotid artery, carotid Bulb, internal carotid artery , and origin of the external carotid artery are well opacified. Small eccenteric calcific plaque is seen in the left common carotid bulb extending into proximal internal carotid artery causing mild stenosis of around 10 percent Vertebral arteries are well opacified. Jugular veins are well opacified. Included lung apices are grossly unremarkable. Thyroid gland appears unremarkable. IMPRESSION: 1. 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 No other abnormality seen in the present study 3. No changes in the findings since previous CT scan Electronically signed by Jan Rainey 04-14-2024 07:34 AM
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
[2024-04-14 07:39] LABS: Albumin Globulin Ratio 1.8 (0.9-2); Albumin Level 3.9 gm/dl (3.4-5.0); Bilirubin,Total 0.5 mg/dl (0.2-1.0); Calcium 9.2 mg/dl (8.6-10.3); Globulin 2.2 gm/dl (2.5-4.0); Magnesium 2.1 mg/dl (1.7-2.4); Potassium 4.1 mmol/L (3.5-5.1); Total Protein 6.1 gm/dl (6.0-8.3)
[2024-04-14 07:44] LABS: Troponin I High Sensitivity 8.6 pg/ml (0-20)
[2024-04-14 07:50] LABS: INR 2.3 (0.9-1.1); Partial Thromboplastin Ratio 1.2; Partial Thromboplastin Time 31 Seconds (21-31); Prothrombin Time 23.5 Seconds (9.0-12.0)
--- NOTE | 2024-04-14 08:44 | XRay Report ---
XR chest 1V portable CLINICAL HISTORY: Shortness of breath. Pneumonia. COMPARISON STUDY: Chest CT May 16, 2022. Chest radiograph November 07, 2023. FINDINGS: Lung volumes are normal. There is no pneumothorax or pleural effusion. Status post median s ternotomy. Moderate cardiomegaly is unchanged. There is no evidence for pulmonary edema. Mild opacity along the left heart border favors epicardial fat pad. IMPRESSION: 1. Cardiomegaly. No evidence for pulmonary edema. 2. Mild opacity along the left heart border which favors epicardial fat pad. ACT 112: Negative or not required by law. Electronically signed by: Meet Mclaughlin M.D. 04/14/2024 8:43 AM
[2024-04-14 09:35] LABS: Adenovirus PCR Not Detected (NotDetected); Bordetella parapertussis PCR Not Detected (NotDetected); Bordetella pertussis PCR Not Detected (NotDetected); Chlamydia pneumoniae PCR Not Detected (NotDetected); Coronavirus 229E PCR Not Detected (NotDetected); Coronavirus CoV-2 (COVID19)PCR Not Detected (NotDetected); Coronavirus HKU1 PCR Not Detected (NotDetected); Coronavirus NL63 PCR Not Detected (NotDetected); Coronavirus OC43PCR Not Detected (NotDetected); Human Metapneumovirus PCR Not Detected (NotDetected); Influenza A PCR Not Detected (NotDetected); Influenza B PCR Not Detected (NotDetected); Mycoplasma pneumoniae PCR Not Detected (NotDetected); Parainfluenza Virus 1 PCR Not Detected (NotDetected); Parainfluenza Virus 2 PCR Not Detected (NotDetected); Parainfluenza Virus 3 PCR Not Detected (NotDetected); Parainfluenza Virus 4 PCR Not Detected (NotDetected); Respiratory Syncytial VirusPCR Not Detected (NotDetected); Rhinovirus/Enterovirus PCR DETECTED (NotDetected)
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
[2024-04-14] MEDS ORDERED: PHARMACIST DISCHARGE MED REC CONSULT PRN (15:08)
[2024-04-14] MEDS ORDERED: ACETAMINOPHEN 325 MG TAB PO PRN (15:08)
[2024-04-14] MEDS ORDERED: MAGNESIUM HYDROXIDE SUSP 30 ML UDC PO PRN (15:08)
[2024-04-14] MEDS ORDERED: ONDANSETRON INJ 2 MG/ML 2 ML VIAL IV PRN (15:08)
[2024-04-14] MEDS ORDERED: POLYETHYLENE (MIRALAX) 17 GM PACK PO PRN (15:08)
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
[2024-04-14] MEDS: ALBUT/IPRATROP 3MG/0.5MG NEB 3 ML VIAL NEB SCH (15:39)
[2024-04-14] MEDS: FUROSEMIDE 40 MG TAB PO SCH (16:29)
[2024-04-14] MEDS: WARFARIN SOD 5 MG TAB PO SCH (16:30)
[2024-04-14] MEDS: SODIUM CHLOR 7% 4 ML NEB NEB SCH (19:41)
[2024-04-14] MEDS: FLUTICASONE/VILANTEROL 200/25MCG 14 PUFFS/INHALER INH SCH (20:17)
[2024-04-14] MEDS: cefaDROXiL 500 MG CAP PO SCH (20:18)
[2024-04-14] MEDS: MONTELUKAST SODIUM 10 MG TABLET PO SCH (20:19)
[2024-04-14] MEDS: ATORVASTATIN 40 MG TAB PO SCH (20:19)
[2024-04-14] MEDS: allopurinoL 100 MG TAB PO SCH (20:20)
[2024-04-14] MEDS: METOPROLOL SUCC 50MG EXT REL TAB PO SCH (20:21)
[2024-04-14] MEDS: COUGH DROP (SUGAR FREE) LOZ 24 LOZ/1 BOX BUCCAL PRN (20:25)
--- OUTSIDE RECORDS SUMMARY | 2024-04-14 21:27 | External Medical Summary | Summary of Care ---
Author Name Unknown Organization [facility] Address [address] [place] [address] Phone [phone] Care Team Providers Care Candle Wicker Name Role Phone Judi Broderick MD Primary Care Provider [phone] Reason for Visit * Reason Comments Outpatient Testing Encounter Details Date Type Department Care Team (Late st Contact Info) Description 04/07/2024 11:40 AM EST Laboratory Laboratory Scenery [facility] [address] [place] [phone] [place], Lab Scenery [address] [place] [address] Paroxysmal atrial fibrillation (HCC) Allergies Active Allergy Reactions Criticality Noted Date Comments Doxycycline 01/27/2020 Muscle rigidly Molds & Smuts Low 12/03/2019 Other reaction(s): Congested Pollen Extract Low 05/16/2022 Other reaction(s): Congested documented as of this encounter (statuses as of 04/07/2024) Medications B Complex Vitamins (VITAMIN-B COMPLEX) Tablet Take 1 Tab by mouth daily. Active Fluticasone Propionate 50 MCG/ACT Nasal Suspension (Flonase) Administer 2 Sprays into each nostril in the morning. Do not start before July 26, 2022. 15.8 mL 3 07/27/19 23 Active Docusate Sodium 100 MG Oral Capsule (Colace) Take 1 Capsule by mouth 2 times a day as needed for Constipation. 10 Capsule 07/26/19 23 Active Potassium Chloride Abigail ER 10 MEQ Oral Tablet Extended Release Take 1 Tablet by mouth in the morning. 90 Tablet 3 08/30/19 23 Active Triamcinolone Acetonide 0.1 % External Cream (Aristocort)Indica tions:Xerosis cutis,Rash and nonspecific skin eruption Apply to rash on back and arms twice daily for 2 weeks and then apply daily on Fri,Sat,Sun 450 g 1 05/30/19 24 Active Additional Information Patient not taking.Reported on 02/27/2024 Magnesium Oxide 400 MG Oral Capsule Take 1 Capsule by mouth in the morning. 30 Capsule 2 08/26/19 24 Active Tamsulosin HCl 0.4 MG Oral Capsule (Flomax)Indication s:BPH with obstruction/lower urinary tract symptoms TAKE 1 CAPSULE IN THE MORNING 90 Capsule 2 10/23/19 24 Active Vitamin C Oral Tablet Chewable Take 1 Tablet by mouth in the morning. Active Vitamin E 45 MG (100 UNIT) Oral Capsule Take by mouth. Activ e Fish Oil 300 MG Oral Capsule Take by mouth. Ac tive Solifenacin Succinate 10 MG Oral Tablet (VESIcare) Take 1 Tablet by mouth in the morning. 30 Tablet 6 12/10/19 24 Active Finasteride 5 MG Oral Tablet (Proscar) Take 1 Tablet by mouth in the morning. 90 Tablet 3 12/10/19 24 Active Montelukast Sodium 10 MG Oral Tablet (Singulair)Indicat ions:Seasonal allergic rhinitis due to pollen TAKE 1 TABLET ONCE DAILY AT BEDTIME 90 Tablet 3 12/24/19 24 Active Allopurinol 100 MG Oral Tablet (Zyloprim)Indicati ons:Idiopathic chronic gout of multiple sites without tophus Take 2 Tablets by mouth in the morning and 2 Tablets before bedtime. 360 Tablet 1 01/02/20 24 Active Additional Information Patient not taking.Reported on 02/27/2024 Atorvastatin Calcium 40 MG Oral Tablet (Lipitor)Indicatio ns:Dyslipidemia, goal LDL below 70 Take 1 Tablet by mouth every afternoon. 90 Tablet 1 01/02/20 24 Active Cetirizine HCl 10 MG Oral Tablet (ZyrTEC)Indication s:Seasonal allergic rhinitis due to pollen Take 1 Tablet by mouth in the morning. 90 Tablet 1 01/02/20 24 Active Escitalopram Oxalate 10 MG Oral Tablet (Lexapro)Indicatio ns:Current mild episode of major depressive disorder without prior episode (HCC) Take 1 Tablet by mouth in the morning. 90 Tablet 1 01/02/20 24 Active Spironolactone 25 MG Oral Tablet (Aldactone)Indicat ions:Chronic diastolic heart failure (HCC) Take 1 Tablet by mouth in the morning. 90 Tablet 1 01/02/20 24 Active Cefadroxil 500 MG Oral Capsule (Duricef)Indicatio ns:Endocarditis due to methicillin susceptible Staphylococcus aureus (MSSA) Take 1 Capsule by mouth in the morning and 1 Capsule before bedtime. 90 Capsule 3 01/01/20 24 Active Furosemide 40 MG Oral Tablet (Lasix) Take 1 Tablet by mouth 2 times a day in the morning and at noon. 180 Tablet 3 01/02/20 24 Active Metoprolol Succinate ER 50 MG Oral Tablet Extended Release 24 Hour (toPROL XL) Take 1 Tablet by mouth daily. 180 Tablet 3 01/02/20 24 Active Tadalafil 5 MG Oral Tablet (Cialis)Indication s:Erectile dysfunction, unspecified erectile dysfunction type Take 1-2 tablets 30 minutes prior to intercourse. Do not take more than 10 mg in 24 hours 10 Tablet 1 01/22/20 24 Active Albuterol Sulfate HFA 108 (90 Base) MCG/ACT Inhalation Aerosol SolutionIndication s:Moderate persistent asthma with exacerbation Inhale 2 Puffs by mouth every 4 hours as needed for Cough, Shortness of Breath or Wheezing. 54 g 1 02/09/20 24 Active Budesonide-Formote rol Fumarate 160-4.5 MCG/ACT Inhalation Aerosol (Symbicort)Indicat ions:Mild persistent asthma without complication Inhale 2 Puffs by mouth in the morning and 2 Puffs before bedtime. 30.6 g 4 02/09/20 24 Active Full Kit Nebulizer Set Use with Nebulizer Medication EVERY SIX HOURS WHILE AWAKE as directed. Dx Code: J45.30 1 Each 3 02/09/20 24 Active methylPREDNISolone 4 MG Oral Tablet Therapy Pack (Medrol Dosepack) Follow package directions 21 Tablet 02/20/20 24 Active Additional Information Patient not taking.Reported on 02/27/2024 Warfarin Sodium 10 MG Oral Tablet (Coumadin)Indicati ons:Chronic atrial fibrillation (HCC) Take one to one and one half tablet by mouth in the evening as instructed by [facility] 135 Tablet 1 03/08/20 24 Active documented as of this encounter (statuses as of 04/07/2024) Active Problems Problem Noted Date Diagnosed Date Morbid (severe) obesity due to excess calories 0 10/29/2023 Chronic diastolic heart failure 01/17/2023 Cerebrovascular disease, arteriosclerotic, post- stroke 01/17/2023 Current mild episode of dave r depressive disorder without prior episode 12/11/2022 Acute bacterial endocarditis 08/20/2022 Cerebrovascular accident (CV [...] History of DVT (deep vein thrombosis) 10/22/2017 Overview (10/22/2017): Left popliteal 07/13 HTN, goal below 130/80 05/29/2016 Aortic valve stenosis 02/12/2016 Asthma, mild persistent 02/20/2015 documented as of this encounter (statuses as of 04/07/2024) Resolved Problems Problem Noted Date Diagnosed Date [...] of malignant neoplasm of prostate 02/20/2015 03/27/2017 Overview (02/20/2015): (2) brothers Bacterial pneumonia 04/27/2013 03/27/20 17 Migraine 12/11/2009 03/27/2017 Dyslipidemia, goal to be determined 05/04/2009 09/08/2009 Overview (05/04/2009): Per Lipid Taxonomy. ADVANCE DIRECTIVE INFORMATION 03/07/2009 03/27/2017 Overview (03/07/2009): No, Advance Directive brochure given to patient. Mckeon's esophagus 06/07/2008 04/04/20 17 Other atopic dermatitis 08/24/200706/2016 Overview (03/18/2017): ICD-10 update of inactive term PURE HYPERCHOLESTEROLEM 03/23/200404/25 Overview (05/04/2009): Per Lipid Taxonomy. Major depressive disorder 09/09/2003 Overview (03/18/2017): ICD-10 update of inactive term TUBULAR ADENOMA COLON POLYP 07/13/2003 03/27/2017 Asthma, mild persistent 04/18/200301/25 Chronic sinusitis 04/18/2003 11/30/2018 HTN, goal below 140/90 06/19/200105/29 Family history of other card iovascular diseases 06/19/2001 03/27/2017 Overview (08/17/2015): ICD-10 update of inactive term GERD w/ Mckeon's esophagitis- 05/0211/18/2000 02/20/2015 Calculus of kidney 06/01/1999 7 LUMB-LUMBOSAC DISC DEGEN 03/12/199906/2016 Allergic rhinitis 06/29/1997 07/21/2020 documented as of this encounter (statuses as of 04/07/2024) Immunizations Name Administration Dates Next Due COVID-19 mRNA, LNP-s, No Pre serve, 2-Dose Series ([employer]) 02/21/2021,08/02/2020,07/05/2020 COVID-19, LNP-s, No Preserve , Rubio-sucrose, Ages 12+ (Pfizer) 08/30/2021 Covid-19, Mrna, Lnp-s, Pf, B ivalent, 30 Mcg, IM, 12 yrs and above (Pfizer) 02/17/2022 H1N1 2009 Influenza, IM 06/08/2009 Pneumococcal Conjugate Vacc, 13 Valent (Prevnar) 02/20/2015 Pneumococcal Polysaccharide PPV23 (Pneumovax) 02/03/2012 SARS-COV-2 (COVID-19) Vaccin e Unspecified 02/16/2024 Season Influenza, Quad, PF, Adjuvanted, 65+ Yrs, IM (FLUAD) 02/01/2020 Seasonal Influenza Vac., MDV , IM, 0.5 mL (Fluzone) 02/17/2014,03/16/2013,02/03/2012,01/24,02/15/2010,02/14/2009,05/03/20 08,03/09/2007 02/05/2012 Seasonal Influenza Virus Vac cine, Unspecified Formulation 01/28/2019,01/28/2018,03/20/2017,01/25,02/20/2015,02/17/2014,03/16/20 13,02/03/2012,02/04/2011,02/15/2010,0 02/14/2009,05/03/2008,03/09/2007,03/11,04/11/2004,03/14/2003, 1,05/01/2000,03/06/1999 Seasonal Influenza, High Dos e, Trivalent, PF, IM (Fluzone HD) 02/09/2024 Seasonal Influenza, PF, 6 M & above, IM , (FluLaval or Fluzone) 01/28/2018,03/20/2017 Seasonal Influenza, Quadriva lent Hd (Fluzone Hd) 02/03/2023,02/14/2022,02/13/2021 Seasonal Influenza, Quadriva lent, No Preserve, IM 02/22/2016,02/20/2015 Seasonal Influenza, Trivalen t, Adjuvanted, 65+ YRS, PF, (Fluad) 01/28/2019 TD, Preservative Free 12/14/2001 TDAP (age 10 and older)(Boostrix) 10/17/2022,02/2012 Typhoid Vaccine Parenteral 12/14/2001 Varicella Zoster Vaccine (Adult) 12/14/2012 Zoster Vaccine [...] money to get more. Never true 01/17/2023 Childcare Answer Date Recorded Do you feel overwhelmed with taking care of a child, family member or friend? No 01/17/2023 Does your family need help f inding childcare? (Household - for ages 0-17 years) Not on file 01/17/2023 Clothing Answer Date Recorded Have you been unable to get clothing when it was really needed? No 01/17/2023 Is your family able to get c lothes or diapers when needed? (Household - for ages 0-17 years) Not on file 01/17/2023 Personal Safety Answer Date Recorded Do you feel unsafe or have concerns for your saf ety? No 01/17/2023 Do you have concerns for you r family's safety? (Household - for ages 0-17 years) Not on file 01/17/2023 Utilities Answer Date Recorded Do you have trouble paying y our heating, water, or electric bill? (Adult - for ages 18 years and over) Not on file 01/22/2024 Is your family able to pay t he heat, water, or electric bill? (Household - for ages 0-17 years) Not on file 01/22/2024 Does your family have access to good internet? (Household - for ages 0-17 years) Not on file 01/22/2024 Employment Status Answer Date Recorded Are you unemployed or without regular income? No 01/17/2023 Does the household have a re gular source of income? (Household - for ages 0-17 years) Not on file 01/17/2023 Social Connections Answer Date Recorded How often do you feel lonely or isolated from those around you? (Adult - for ages 18 years and over) Not on file 01/22/2024 Financial Resource Strain Answer Date R ecorded Do you have any trouble payi ng for your medications, or do you think you might in the future? No 01/17/2023 Does your family have troubl e paying for medicine? (Household - for ages 0-17 years) Not on file 01/17/2023 Transportation Needs Answer Date Record ed READ ONLY Do you have troubl e getting a ride to medical visits or work? Sometimes True 01/17/2023 Does your family have a hard time getting a ride to doctors visits? (Household - for ages 0-17 years) Not on file 01/17/2023 Has lack of transportation k ept you from medical appointments, meetings, work, or from getting things needed for daily living? Check all that apply. (Adult - for ages 18 years and over) Not on file 01/17/2023 Do you (or your family) have trouble finding or paying for a ride (transportation)? (Household - for ages 0-17 years) Not on file 01/17/2023 Housing Stability Answer Date Recorded Do you currently live in a s helter or have no steady place to sleep at night? No 01/17/2023 READ ONLY Do you think you a re at risk of becoming homeless? No 01/17/2023 Does your family worry about paying for your home or becoming homeless? (Household - for ages 0-17 years) Not on file 0 01/17/2023 Are you homeless or worried that you might be in the future? (Adult - for ages 18 years and over) Not on file Are you (or your family) alicia eless or worried that you might be in the future? (Household - for ages 0-17 years) Not on file Food Insecurity Answer Date Recorded Do you need food for this week? No 01/17/2023 Are you able to get enough f ood for your family? (Household - for ages 0-17 years) Not on file 01/17/2023 Does your family need food t his week? (Household - for ages 0-17 years) Not on file 01/17/2023 Do you always have enough fo od for your family? 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 Answer Date of Assessment Author No 07/07/2022 12:11 AM Emely Pulido RN * Are you blind or do you have serious difficulty seeing, even when wearing glasses? Answer Date of Assessment Author No 07/07/2022 12:11 AM Emely Pulido RN * Do you have serious difficulty walking or climbing stairs? (5 years old or older) Answer Date of Assessment Author No 07/08/2022 4:53 PM Sudha Hopkins RN * Do you have difficulty dressing or bathing? (5 years old or older) Answer Date of Assessment Author No 07/07/2022 12:11 AM Emely Pulido RN * Because of a physical, mental, or emotional condition, do you have difficulty doing errands alone such as visiting a doctors office or shopping? (15 years old or older) Answer Date of Assessment Author No 07/07/2022 12:11 AM Emely Pulido RN documented as of this encounter Mental Status * Because of a physical, mental, or emotional condition, do you have serious difficulty concentrating, remembering, or making decisions? (5 years old or older) Answer Entry Date Author No 07/07/2022 12:11 AM Emely Pulido RN documented in this encounter Plan of Treatment Upcoming Encounters Date Type Department Care Team (Late st Contact Info) Description 04/08/2024 6:15 AM EST Anticoagulation Centralized Clinical Pharmacy Services, [facility] [address] [place] [address] [place] [phone] [facility], [address] [place] [address] 04/20/2024 8:10 AM EST Office Visit Pharmacy, [facility] [address] [facility] [place] [address] Pharmacist1, [facility] [address] [facility] [place] [address] 04/20/2024 3:00 PM EST Office Visit Cardiology, [facility] [address] [facility] [place] [address] Ibis Garza PA-C [address] [place] [address] [place] [id number] 06/01/2024 12:40 PM EST Office Visit Pulmonary Medicine, [facility] [address] [facility] [place] [id number] Jose Alfredo Navarro MD [address] [place] [address] 07/09/2024 7:30 AM EST Office Visit Audiology [facility] [address] [facility] [place] [address] Kerline Desai Au.D. [address] [place] [address] 08/19/2024 1:00 PM EDT Office Visit Family Practice [facility] L[facility]ano [address] [facility] [place] [address] Judi Broderick MD [address] [facility] [place] [address] Pending Results Name Type Priority Associated Diagnoses Date /Time PT INR Lab Routine Paroxysmal atrial fibrillation (HCC) 04/07/2024 11:40 AM EST Scheduled Procedures Name Priority Associated Diagnoses Date/Ti me COLONOSCOPY FLEXIBLE PROXIMA L DIAGNOSTIC Recall History of colonic polyps Health Maintenance Due Date Last Done Comments Adult Wellness Visit 2010 Zoster Vaccines (3 of 3) 01/17/2020 11/22/2019, 11/24 Depression Monitoring 07/21/2021 07/21/2020 Mckeon's Esophagus Surveilance 02/14/2023 02/15/2020, 06/06/2009, 05/12/2008 Albumin/Creatinine Ratio 09/03/2024 09/03/2021 GFR 01/21/2025 01/22/2024, 08/01/2024, 08/26/2023, Additional history exists Colonoscopy 04/30/2026 04/30/2023, 03/27, 04/20/2019, Additional history exists DTap/Tdap Vaccines (3 - Td or Tdap) 10/17/2032 10/17/2022, 02/03/2012, 12/14/2001, Additional history exists Hepatitis B Vaccine Completed 03/14/2003, 01/08/2002, 12/14/2001 Pneumococcal Vaccine: 65+ Years Completed 02/20/2015, 02/03/2012, 03/11/2005 RETIRED - COLONOSCOPY-EVERY 2 YRS AGES 18-100 Discontinued 04/30/2023, 04/20/2019, 04/20/2019, Additional history exists Influenza Vaccine (FLU shot) Completed 02/09/2024, 02/03/2023, 02/14/2022, Additional history exists COVID-19 Vaccine Completed 02/16/2024, , 02/17/2022, Additional history exists HPV (Gardasil) Vaccine Aged Out No lo nger eligible based on patient's age to complete this topic MENINGOCOCCAL (MENACTRA/MENVEO) Aged Out No longer eligible based on patient's age to complete this topic documented as of this encounter Medical Devices Implanted Type Area Box Annealer Device Identifier Shelf Expiration Date Model / Serial / Lot Suture Steel 6 B&S19 [id number] - [id number] Implanted:Qty : 8 on 07/19/2022 by Jordin Parish MD at [facility] [place] [place] N/A: Sternum JNJ : [employer] 02/22/2027 [id number] / / [id number] Valve Heart Mitral Epic 31mm - [id number] - [id number] Implanted:Qty : 1 on 07/19/2022 by Jordin Parish MD at [facility] [place] [place] N/A: Heart ST STEPH : CARDIOVASCULAR [id number] 01/24/2026 [id number] / [id number] / [id number] documented as of this encounter Visit Diagnoses Diagnosis Paroxysmal atrial fibrillation (HCC) Atrial fibrillation documented in this encounter Advance Directives * [...] Advance Directives occurred with: Patient Care Teams Candle Wicker Relationship Specialty Start Date End Date Judi Broderick MD [address] [facility] [place] [address] PCP - General Family Medicine 02/24/23 documented as of this encounter
--- OUTSIDE RECORDS SUMMARY | 2024-04-14 21:27 | External Medical Summary | Summary of Care ---
Author Name Unknown Organization [facility] Address [address] [place] [address] Phone [phone] Care Team Providers Care Racing Secretary Name Role Phone Judi Broderick MD Primary Care Provider [phone] Reason for Visit * Reason Onset Date Comments Order Request 02/27/2024 New nebulizer Encounter Details Date Type Department Care Team (Late st Contact Info) Description 02/27/2024 Telephone Pulmonary Medicine, [facility] [address] [place] [address] Jeannie Vincent CRNP [address] [facility] [place] [address] Order Request (New nebulizer) Allergies Active Allergy Reactions Criticality Noted Date Comments Doxycycline 01/27/2020 Muscle rigidly Molds & Smuts Low 12/03/2019 Other reaction(s): Congested Pollen Extract Low 05/16/2022 Other reaction(s): Congested documented as of this encounter (statuses as of 03/11/2024) Medications Medication Sig Dispensed Refills Start Date End Date Status B Complex Vitamins (VITAMIN-B COMPLEX) Tablet Take [...] needed for Constipation. 10 Capsule 07/25/2022 Active Potassium Chloride Abigail ER 10 MEQ Oral Tablet Extended Release Take 1 Tablet by mouth in the morning. 90 Tablet 3 08/29/2022 Active Triamcinolone Acetonide 0.1 % External Cream (Aristocort)Indicat ions:Xerosis cutis,Rash and nonspecific skin eruption Apply to rash on back and arms twice daily for 2 weeks and then apply daily on Fri,Sat,Sun 450 g 1 05/30/2023 Active Additional Information Patient not taking.Reported on 02/27/2024 Magnesium Oxide 400 MG Oral Capsule Take 1 Capsule by mouth in the morning. 30 Capsule 2 08/26/2023 Active Tamsulosin HCl 0.4 MG Oral Capsule (Flomax)Indications :BPH with obstruction/lower urinary tract symptoms TAKE 1 CAPSULE IN THE MORNING 90 Capsule 2 10/23/2023 Active Vitamin C Oral Tablet Chewable Take 1 Tablet by mouth in the morning. Active Vitamin E 45 MG (100 UNIT) Oral Capsule Take by mouth. Active Fish Oil 300 MG Oral Capsule Take by mouth. Active Solifenacin Succinate 10 MG Oral Tablet (VESIcare) Take 1 Tablet by mouth in the morning. 30 Tablet 6 12/10/2023 Active Finasteride 5 MG Oral Tablet (Proscar) Take 1 Tablet by mouth in the morning. 90 Tablet 3 12/10/2023 Active Montelukast Sodium 10 MG Oral Tablet (Singulair)Indicati ons:Seasonal allergic rhinitis due to pollen TAKE 1 TABLET ONCE DAILY AT BEDTIME 90 Tablet 3 12/24/2023 Active Allopurinol 100 MG Oral Tablet (Zyloprim)Indicatio ns:Idiopathic chronic gout of multiple sites without tophus Take 2 Tablets by mouth in the morning and 2 Tablets before bedtime. 360 Tablet 1 01/02/2024 Active Additional Information Patient not taking.Reported on 02/27/2024 Atorvastatin Calcium 40 MG Oral Tablet (Lipitor)Indication s:Dyslipidemia, goal LDL below 70 Take 1 Tablet by mouth every afternoon. 90 Tablet 1 01/02/2024 Active Cetirizine HCl 10 MG Oral Tablet (ZyrTEC)Indications :Seasonal allergic rhinitis due to pollen Take 1 Tablet by mouth in the morning. 90 Tablet 1 01/02/2024 Active Escitalopram Oxalate 10 MG Oral Tablet (Lexapro)Indication s:Current mild episode of major depressive disorder without prior episode (HCC) Take 1 Tablet by mouth in the morning. 90 Tablet 1 01/02/2024 Active Spironolactone 25 MG Oral Tablet (Aldactone)Indicati ons:Chronic diastolic heart failure (HCC) Take 1 Tablet by mouth in the morning. 90 Tablet 1 01/02/2024 Active Cefadroxil 500 MG Oral Capsule (Duricef)Indication s:Endocarditis due to methicillin susceptible Staphylococcus aureus (MSSA) Take 1 Capsule by mouth in the morning and 1 Capsule before bedtime. 90 Capsule 3 01/01/2024 Active Furosemide 40 MG Oral Tablet (Lasix) Take 1 Tablet by mouth 2 times a day in the morning and at noon. 180 Tablet 3 01/02/2024 Active Metoprolol Succinate ER 50 MG Oral Tablet Extended Release 24 Hour (toPROL XL) Take 1 Tablet by mouth daily. 180 Tablet 3 01/02/2024 Active Tadalafil 5 MG Oral Tablet (Cialis)Indications :Erectile dysfunction, unspecified erectile dysfunction type Take 1-2 tablets 30 minutes prior to intercourse. Do not take more than 10 mg in 24 hours 10 Tablet 1 01/22/2024 Active Albuterol Sulfate HFA 108 (90 Base) MCG/ACT Inhalation Aerosol SolutionIndications :Moderate persistent asthma with exacerbation Inhale 2 Puffs by mouth every 4 hours as needed for Cough, Shortness of Breath or Wheezing. 54 g 1 02/09/2024 Active Budesonide-Formoter ol Fumarate 160-4.5 MCG/ACT Inhalation Aerosol (Symbicort)Indicati ons:Mild persistent asthma without complication Inhale 2 Puffs by mouth in the morning and 2 Puffs before bedtime. 30.6 g 4 02/09/2024 Active Full Kit Nebulizer Set Use with Nebulizer Medication EVERY SIX HOURS WHILE AWAKE as directed. Dx Code: J45.30 1 Each 3 02/09/2024 Active methylPREDNISolone 4 MG Oral Tablet Therapy Pack (Medrol Dosepack) Follow package directions 21 Tablet 02/20/2024 Active Additional Information Patient not taking.Reported on 02/27/2024 Warfarin Sodium 10 MG Oral Tablet (Coumadin)Indicatio ns:Chronic atrial fibrillation (HCC) Take one to one and one half tablet by mouth in the evening as instructed by [facility] 135 Tablet 1 06/03/2023 03/04/20 24 Discontinue d(Refill) Albuterol Sulfate 0.63 MG/3ML Inhalation Nebulization Solution (Accuneb) Inhale 1 Vial via nebulizer every 6 hours as needed for Wheezing or Shortness of Breath. 360 mL 02/09/2024 03/10/20 24 predniSONE 20 MG Oral Tablet (Deltasone)Indicati ons:Exacerbation of asthma, unspecified asthma severity, unspecified whether persistent Take 2 Tablets by mouth in the morning for 5 days. 10 Tablet 02/27/2024 03/03/20 24 documented as of this encounter (statuses as of 03/11/2024) Active Problems Problem Noted Date Diagnosed Date [...] as of this encounter (statuses as of 03/11/2024) Resolved Problems Problem Noted Date Diagnosed Date [...] as of this encounter (statuses as of 03/11/2024) Immunizations Name Administration Dates Next Due COVID-19 mRNA, LNP-s, No Pre serve, 2-Dose Series (Knowta) 02/21/2021,08/02/2020,07/05/2020 COVID-19, LNP-s, No Preserve , Rubio-sucrose, Ages 12+ (Knowta) 08/30/2021 Covid-19, Mrna, Lnp-s, Pf, B ivalent, 30 Mcg, IM, 12 yrs and above (Knowta) 02/17/2022 H1N1 2009 Influenza, IM 06/08/2009 HEP A - Hepatitis A (Adult > 18 yrs) 12/14/2001 Hepatitis B, 20+ yrs 03/14/2003,01/08/2002,12/14 Pneumococcal Conjugate Vacc, 13 Valent (Prevnar) 02/20/2015 Pneumococcal Polysaccharide PPV23 (Pneumovax) 02/03/2012,03/11/2005 SARS-COV-2 (COVID-19) Vaccin e Unspecified 02/16/2024 Season Influenza, Quad, PF, Adjuvanted, 65+ Yrs, IM (FLUAD) 02/01/2020 Seasonal Influenza Vac., MDV , IM, 0.5 mL (Fluzone) 02/17/2014,03/16/2013,02/03/2012,01/24,02/15/2010,02/14/2009,05/03/20 08,03/09/2007,03/11/2005,04/11/2004,1 ,04/15/2001,05/01/2000,03/0602/05/2012 Seasonal Influenza Virus Vac cine, Unspecified Formulation 01/28/2019,01/28/2018,03/20/2017,01/25,02/20/2015,02/17/2014,03/16/20 13,02/03/2012,02/04/2011,02/15/2010,0 02/14/2009,05/03/2008,03/09/2007,03/11,04/11/2004,03/14/2003, 1,05/01/2000,03/06/1999 Seasonal Influenza, High Dos e, Trivalent, PF, IM (Fluzone HD) 02/09/2024 Seasonal Influenza, PF, 6 M & above, IM , (FluLaval or Fluzone) 01/28/2018,03/20/2017 Seasonal Influenza, Quadriva lent Hd (Fluzone Hd) 02/03/2023,02/14/2022,02/13/2021 Seasonal Influenza, Quadriva lent, No Preserve, IM 02/22/2016,02/20/2015 Seasonal Influenza, Trivalen t, Adjuvanted, 65+ YRS, PF, (Fluad) 01/28/2019 TD - Tetanus/Diptheria (ADULT) 12/14/2001 TD, Preservative Free 12/14/2001 TDAP (age 10 and older)(Boostrix) 10/17/2022,02/2012 Typhoid Parenteral 12/14/2001 Typhoid Vaccine Parenteral 12/14/2001 Varicella Zoster Vaccine [...] No 07/07/2022 documented as of this encounter Miscellaneous Notes * Telephone Encounter - Diana Valdivia LPN - 03/11/2024 1:52 PM EDT noted * Telephone Encounter - Radha Dukes OSA - 03/11/2024 12:47 PM EDT Per TH: "the supplier has cancelled the order, as patient expressed he no longers wants/needs the supplies. How should we proceed?" * Telephone Encounter - Radha Dukes OSA - 03/01/2024 10:10 AM EDT DME order for Nebulizer submitted to [employer]. * Telephone Encounter - Jeannie Vincent CRNP - 02/27/2024 1:14 PM EDT DME order placed * Telephone Encounter - Diana Valdivia LPN - 02/27/2024 1:04 PM EDT Pts nebulizer has broken. Pt will need an order for a new machine. There is a ref for MGMT already started on todays encounter from urgent care documented in this encounter Plan of Treatment Upcoming Encounters Date Type Department Care Team (Late st Contact Info) Description 03/29/2024 1:40 PM EST Laboratory Laboratory [facility] [address] [place] [phone] [facility] [address] [place] [address] 03/30/2024 6:15 AM EST Anticoagulation Centralized Clinical Pharmacy Services, Paige Beverly [address] [place] [address] [place] [address] [facility], [address] [place] [address] 03/30/2024 9:00 AM EST Office Visit Pharmacy, [facility] [address] [place] [address] Pharmacist1, [facility] Sp [address] [place] [address] 03/31/2024 2:45 PM EST Office Visit Urology, [facility] [address] [facility] [place] [address] Stuart Cullen MD [address] [place] [address] 04/20/2024 3:00 PM EST Office Visit Cardiology, [facility] [address] [facility] [place] [address] Ibis Garza PA-C [address] [place] [address] 06/01/2024 12:40 PM EST Office Visit Pulmonary Medicine, [facility] [address] [facility] [place] [address] Jose Alfredo Navarro MD [address] [place] [address] 07/09/2024 7:30 AM EST Office Visit Audiology [facility] [address] [place] [address] Kerline Desai Au.D. [address] [place] [address] 08/19/2024 1:00 PM EDT Office Visit Family Practice [facility] 200 [facility] [place] [address] Judi Broderick MD [address] [facility] [address] [place] [address] Scheduled Procedures Name Priority Associated Diagnoses Date/Ti me COLONOSCOPY FLEXIBLE PROXIMA L DIAGNOSTIC Recall History of colonic polyps Health Maintenance Due Date Last Done Comments Adult Wellness Visit 2010 Zoster Vaccines (3 of 3) 01/17/2020 11/22/2019, 11/24 Depression Monitoring 07/21/2021 07/21/2020 Mckeon's Esophagus Surveilance 02/14/2023 02/15/2020, 06/06/2009, 05/12/2008 Albumin/Creatinine Ratio 09/03/2024 09/03/2021 GFR 01/21/2025 01/22/2024, 08/0 01/2024, 08/26/2023, Additional history exists Colonoscopy 04/30/2026 04/30/2023, [...] this encounter Medical Devices Implanted Type Area Manager Party Device Identifier Shelf Expiration Date Model / Serial / Lot Suture Steel 6 B&S19 M654g - [id number] Implanted:Qty : 8 on 07/19/2022 [place] J[place] [facility] [place]: Sternum JNJ : [employer] 02/22/2027 M654G / / SLBJCL Valve Heart Mitral Epic 31mm - [id number] - [id number] Implanted:Qty : 1 on 07/19/2022 by Jordin Parish [place] [facility] [place] N/A: Heart ST STEPH : CARDIOVASCULAR [id number] 01/24/2026 [id number]- 00 / [id number] / [id number] documented as of this encounter Visit Diagnoses Diagnosis Moderate persistent asthma with exacerbation- Primary Unspecified asthma, with exacerbation documented in this encounter Advance Directives * [...] Advance Directives occurred with: Patient Care Teams Racing Secretary Relationship Specialty Start Date End Date Judi Broderick MD [address] [place] [address] PCP - General Family Medicine 02/24/23 documented as of this encounter
--- OUTSIDE RECORDS SUMMARY | 2024-04-14 21:27 | External Medical Summary | Summary of Care ---
Author Name Unknown Organization [facility] Address [address] [place] [address] Phone [phone] Care Team Providers Care Benefit Director Name Role Phone Judi Broderick MD Primary Care Provider [phone] Reason for Visit * Reason Onset Date Comments Order Request 02/27/2024 New nebulizer Encounter Details Date Type Department Care Team (Late st Contact Info) Description 02/27/2024 Telephone Pulmonary Medicine, [facility] [address] [place] [address] Jeannie Vincent CRNP [address] [place] [address] Order Request (New nebulizer) Allergies Active Allergy [...] mouth in the evening as instructed by [facility] 135 Tablet 1 06/03/2023 [...] mRNA, LNP-s, No Pre serve, 2-Dose Series ([employer]) 02/21/2021,08/02/2020,07/05/2020 COVID-19, LNP-s, No Preserve , Rubio-sucrose, Ages 12+ ([employer]) 08/30/2021 Covid-19, Mrna, Lnp-s, Pf, B ivalent, 30 Mcg, IM, 12 yrs and above ([employer]argoGuard) 02/17/2022 H1N1 2009 Influenza, IM 06/08/2009 HEP [...] encounter Miscellaneous Notes * Telephone Encounter - Radha Dukes OSA - 03/11/2024 12:47 PM EDT Per TH: "the supplier has cancelled the order, as patient expressed he no longers wants/needs the supplies. How should we proceed?" * Telephone Encounter - Radha Dukes OSA - 03/01/2024 10:10 AM EDT DME order for Nebulizer submitted to [email or web address]. * Telephone Encounter - Jeannie Vincent CRNP [...] Description 03/29/2024 1:40 PM EST Laboratory Laboratory [facility] [address] [place] [phone] [place], [facility] [address] [place] [address] 03/30/2024 6:15 AM EST Anticoagulation Centralized Clinical Pharmacy Services, Paige Beverly [address] [place] [address] [place] [address] [facility], [address] [place] [address] 03/30/2024 9:00 AM EST Office Visit Pharmacy, [facility] Latrice [place] [address] [place] [address] Pharmacist1, [facility] Sp [address] [place] [address] 03/31/2024 2:45 PM EST Office Visit Urology, [facility] 132 [facility] [place] [address] Stuart Cullen MD [address] [place] [address] 04/20/2024 3:00 PM EST Office Visit Cardiology, [facility] [address] [facility] [place] [address] Ibis Garza PA-C [address] [place] [address] [place] [address] 06/01/2024 12:40 PM EST Office Visit Pulmonary Medicine, [facility] 132 [facility] [place] [address] Jose Alfredo Navarro MD [address] [place] [address] 07/09/2024 7:30 AM EST Office Visit Audiology [facility] [address] [place] [address] Kerline Desai Au.D. [address] [place] [address] 08/19/2024 1:00 PM EDT Office Visit Family Practice [facility] 200 [facility] [place] [address] Judi Broderick MD 200 [facility] [place] [address] Scheduled Procedures Name Priority Associated Diagnoses Date/Ti [...] this encounter Medical Devices Implanted Type Area Chauffeur Device Identifier Shelf Expiration Date Model / Serial / Lot Suture Steel 6 B&S19 M654g - [id number] Implanted:Qty : 8 on 07/19/2022 by Jordin Parish MD at [place] [facility] [place] N/A: Sternum JNJ : [employer] 02/22/2027 M654G / / SLBJCL Valve Heart Mitral Epic 31mm - [id number] - [id number] Implanted:Qty : 1 on 07/19/2022 by Jordin Parish MD at OR [facility] [place] N/A: Heart ST STEPH : CARDIOVASCULAR [id number] 01/24/2026 L877-05H- 00 / [id number] / [id number] documented as of this encounter Visit Diagnoses [...] Advance Directives occurred with: Patient Care Teams Benefit Director Relationship Specialty Start Date End Date Judi Broderick MD [address] [place] [address] PCP - General Family Medicine 02/24/23 documented as of this encounter
--- OUTSIDE RECORDS SUMMARY | 2024-04-14 21:27 | External Medical Summary ---
Author Name Unknown Address Unknown Organization K09:[facility] [place] [address] Laboratory Report Ordering Provider Test Date Status CIARAKRZYSZTOFJOSÉ MIGUEL 04/07/2024 11:40:35 Final Standing order for pt/inr. < br/>Please draw pt/inr every 1 to 4 weeks as requested
Results to [facility]

Warfarin Therapy
INR: 2.0-3.0 conventional anticoagulation
INR: 2.5-3.5 high intensity anticoagulation Observation Date Value Abnormality Reference (Units ) Status PT 04/07/2024 11:40:35 23.9 Above high normal 11 .6-15.2 (seconds) Final INR 04/07/2024 11:40:35 2.1 Above high normal 0. 8-1.2 Final Performing Location [facility] [place] [address]
--- OUTSIDE RECORDS SUMMARY | 2024-04-14 21:27 | External Medical Summary | Summary of Care ---
Author Name Unknown Organization [facility] Address [address] [place] [address] Phone [phone] Care Team Providers Care Head Housekeeper Name Role Phone Judi Broderick MD Primary Care Provider Reason for Visit * Reason Comments Dosage Adjustment Via Phone (anticoag Cl inic) Encounter Details Date Type Department Care Team ([facility] st Contact Info) Description 04/08/2024 6:15 AM EST Anticoagulation Centralized Clinical Pharmacy Services, [facility] Siria [address] [place] [address] [place] [address] [facility], [address] [place] [address] Status post mitral valve replacement*; Paroxysmal atrial fibrillation (HCC); MSSA bacteremia Allergies Active Allergy Reactions Criticality Noted Date Comments Doxycycline 01/27/2020 Muscle rigidly Molds & Smuts Low 12/03/2019 Other reaction(s): Congested Pollen Extract Low 05/16/2022 Other reaction(s): Congested documented as of this encounter (statuses as of 04/08/2024) Medications B Complex Vitamins (VITAMIN-B COMPLEX) Tablet [...] mouth in the evening as instructed by [facility] 135 Tablet 1 03/08/20 24 Active documented as of this encounter (statuses as of 04/08/2024) Active Problems Problem Noted Date Diagnosed Date [...] as of this encounter (statuses as of 04/08/2024) Resolved Problems Problem Noted Date Diagnosed Date [...] as of this encounter (statuses as of 04/08/2024) Immunizations Name Administration Dates Next Due COVID-19 mRNA, LNP-s, No Pre serve, 2-Dose Series (Analyze Re) 02/21/2021,08/02/2020,07/05/2020 COVID-19, LNP-s, No Preserve , Rubio-sucrose, Ages 12+ (Pfizer) 08/30/2021 Covid-19, Mrna, Lnp-s, Pf, B ivalent, 30 Mcg, IM, 12 yrs and above (Analyze Re) 02/17/2022 H1N1 2008 Influenza, IM 06/08/2009 Pneumococcal Conjugate Vacc, 13 [...] Emely Pulido RN documented in this encounter Progress Notes * Juliet Apodaca PHARM Tech - 04/08/2024 10:20 AM EST Contacts Contact Date/Time Type Contact Phone/Fax 04/08/2024 10:16 AM EST Phone (Outgoing) Jordin Mckeon (Self) [phone] (M) Spoke to Patient Subjective Patient Findings Negatives: Signs/symptoms of bleeding, Change in health, Change in activity, Upcoming invasive procedure, Missed doses, Extra doses, Change in medications, Change in diet/appetite, Bruising Advised patient to contact Anticoagulation Clinic if any unusual bruising or bleeding, recent illness, changes in medication, or questions/concerns. PT/INR results, Coumadin dose instructions, and next PT/INR date communicated as noted by Pharmacist: Yes TIMI Montalvo 04/08/2024, 10:20 AM * Karime Rodriguez [facility] - 04/08/2024 10:00 AM EST Coumadin Clinic (region specific) Objective Current Warfarin Dose As of 04/08/2024 Warfarin maintenance plan: 25 mg (10 mg x 2.5) every Mon, Fri; 15 mg (10 mg x 1.5) all other days INR Result As of 04/08/2024 INR goal: 2.0-3.0 INR used for dosin.1 (04/07/2024) Assessment & Plan Warfarin Plan As of 04/08/2024 Full warfarin instructions: 25 mg every Mon, Fri; 15 mg all other days No change documented: Karime Rodriguez RPh Next INR check: 04/28/2024 Repeat PT/INR in 3 week(s) Weekly dose: not changed Additional Dosing Information: Description [facility] to contact patient with dose instructions as noted. Karime Rodriguez RPh 04/08/2024, 10:00 AM documented in this encounter Plan of Treatment Upcoming Encounters Date Type Department Care Team (Late st Contact Info) Description 04/20/2024 8:10 AM EST Office Visit Pharmacy, [facility] 200 [facility] [place] [address] Pharmacist1, [facility] [address] [facility] [place] [address] 04/20/2024 3:00 PM EST Office Visit Cardiology, [facility] 132 [facility] [place] [address] Ibis Garza PA-C [address] [place] [address] 06/01/2024 12:40 PM EST Office Visit Pulmonary Medicine, [facility] 132 [facility] [place] [address] Jose Alfredo Navarro [facility] [address] [facility] [address] 07/09/2024 7:30 AM EST Office Visit Audiology [facility] [address] [place] [address] Kerline Desai Au.D. [address] [place] [address] 08/19/2024 1:00 PM EDT Office Visit Family Practice [facility] [address] [facility] [place] [address] Judi Broderick MD 200 [facility] [place] [address] Scheduled Procedures Name Priority Associated Diagnoses Date/Ti [...] this encounter Medical Devices Implanted Type Area Public Finance Specialist Device Identifier Shelf Expiration Date Model / Serial / Lot Suture Steel 6 B&S19 M654g - [id number] Implanted:Qty : 8 on 07/19/2022 by Jordin Parish MD at [place] [facility] [place] N/A: Sternum JNJ : [employer] 02/22/2027 M654G / / SLBJCL Valve Heart Mitral Epic 31mm - [id number] - [id number] Implanted:Qty : 1 on 07/19/2022 by Jordin Parish MD at OR [facility] [place] N/A: Heart ST STEPH : CARDIOVASCULAR [id number] 01/24/2026 C265-59I- 00 / [id number] / [id number] documented as of this encounter Visit Diagnoses Diagnosis Status post mitral valve replacement- Primary Heart valve replaced by other means Paroxysmal atrial fibrillation (HCC) Atrial fibrillation MSSA bacteremia documented in this encounter Advance Directives * [...] Advance Directives occurred with: Patient Care Teams Head Housekeeper Relationship Specialty Start Date End Date Judi Broderick MD [address] [place] [address] PCP - General Family Medicine 02/24/23 documented as of this encounter
--- OUTSIDE RECORDS SUMMARY | 2024-04-14 21:28 | External Medical Summary | Summary of Care ---
Author Name Unknown Organization [facility] Address [address] [place] [address] Phone [phone] Care Team Providers Care Cold Meat Chef Name Role Phone Judi Broderick MD Primary Care Provider Reason for Visit * Reason Onset Date Comments Asthma 02/27/2024 Increased asthma problems Encounter Details Date Type Department Care Team (Late st Contact Info) Description 02/27/2024 Telephone Pulmonary Medicine, [facility] [address] [facility] [place] [address] Jose Alfredo Navarro MD [address] [facility] [place] [id number] Asthma (Increased asthma problems) Allergies Active Allergy Reactions Criticality Noted Date Comments Doxycycline 01/27/2020 Muscle rigidly Molds & Smuts Low 12/03/2019 Other reaction(s): Congested Pollen Extract Low 05/16/2022 Other reaction(s): Congested documented as of this encounter (statuses as of 03/02/2024) Medications Medication Sig Dispensed Refills Start Date [...] 02/27/2024 Warfarin Sodium 10 MG Oral Tablet (Coumadin)Indication s:Chronic atrial fibrillation (HCC) Take one to one and one half tablet by mouth in the evening as instructed by [facility] 135 Tablet 1 06/03/2023 Active Additional Information Patient taking differently: 15 mg, Take one to one and one half tablet by mouth in the evening as instructed by [facility], Reported on 11/07/2023 Magnesium Oxide 400 MG Oral Capsule Take [...] (100 UNIT) Oral Capsule Take by mouth. Ac tive Fish Oil 300 MG Oral Capsule Take by mouth. Active Solifenacin Succinate 10 MG Oral Tablet (VESIcare) Take 1 Tablet by mouth in the morning. 30 Tablet 6 12/10/2023 Active Finasteride 5 MG Oral Tablet (Proscar) Take 1 Tablet by mouth in the morning. 90 Tablet 3 12/10/2023 Active Montelukast Sodium 10 MG Oral Tablet (Singulair)Indicatio ns:Seasonal allergic rhinitis due to pollen TAKE 1 TABLET ONCE DAILY AT BEDTIME 90 Tablet 3 12/24/2023 Active Allopurinol 100 MG Oral Tablet (Zyloprim)Indication s:Idiopathic chronic gout of multiple sites without tophus Take 2 Tablets by mouth in the morning and 2 Tablets before bedtime. 360 Tablet 1 01/02/2024 Active Additional Information Patient not taking.Reported on 02/27/2024 Atorvastatin Calcium 40 MG Oral Tablet (Lipitor)Indications :Dyslipidemia, goal LDL below 70 Take 1 Tablet by mouth every afternoon. 90 Tablet 1 01/02/2024 Active Cetirizine HCl 10 MG Oral Tablet (ZyrTEC)Indications: Seasonal allergic rhinitis due to pollen Take 1 Tablet by mouth in the morning. 90 Tablet 1 01/02/2024 Active Escitalopram Oxalate 10 MG Oral Tablet (Lexapro)Indications :Current mild episode of major depressive disorder without prior episode (HCC) Take 1 Tablet by mouth in the morning. 90 Tablet 1 01/02/2024 Active Spironolactone 25 MG Oral Tablet (Aldactone)Indicatio ns:Chronic diastolic heart failure (HCC) Take 1 Tablet by mouth in the morning. 90 Tablet 1 01/02/2024 Active Cefadroxil 500 MG Oral Capsule (Duricef)Indications [...] 1 Tablet by mouth daily. 180 Tablet 01/02/2024 Active Tadalafil 5 MG Oral Tablet (Cialis)Indications: Erectile dysfunction, unspecified erectile dysfunction type Take 1-2 tablets 30 minutes prior to intercourse. Do not take more than 10 mg in 24 hours 10 Tablet 1 01/22/2024 Active Albuterol Sulfate HFA 108 (90 Base) MCG/ACT Inhalation Aerosol SolutionIndications: Moderate persistent asthma with exacerbation Inhale 2 Puffs by mouth every 4 hours as needed for Cough, Shortness of Breath or Wheezing. 54 g 1 02/09/2024 Active Budesonide-Formotero l Fumarate 160-4.5 MCG/ACT Inhalation Aerosol (Symbicort)Indicatio ns:Mild persistent asthma without complication Inhale 2 Puffs by mouth in the morning and 2 Puffs before bedtime. 30.6 g 02/09/2024 Active Full Kit Nebulizer Set Use with Nebulizer Medication EVERY SIX HOURS WHILE AWAKE as directed. Dx Code: J45.30 1 Each 3 02/09/2024 Active Albuterol Sulfate 0.63 MG/3ML Inhalation Nebulization Solution (Accuneb) Inhale 1 Vial via nebulizer every 6 hours as needed for Wheezing or Shortness of Breath. 360 mL 02/09/2024 Active methylPREDNISolone 4 MG Oral Tablet Therapy Pack (Medrol Dosepack) Follow package directions 21 Tablet 02/20/2024 Active Additional Information Patient not taking.Reported on 02/27/2024 documented as of this encounter (statuses as of 03/02/2024) Active Problems Problem Noted Date Diagnosed Date [...] as of this encounter (statuses as of 03/02/2024) Resolved Problems Problem Noted Date Diagnosed Date [...] as of this encounter (statuses as of 03/02/2024) Immunizations Name Administration Dates Next Due COVID-19 mRNA, LNP-s, No Pre serve, 2-Dose Series ([employer]) 02/21/2021,08/02/2020,07/05/2020 COVID-19, LNP-s, No Preserve , Rubio-sucrose, Ages 12+ (Pfizer) 08/30/2021 Covid-19, Mrna, Lnp-s, Pf, B ivalent, 30 Mcg, IM, 12 yrs and above ([employer]) 02/17/2022 H1N1 2009 Influenza, IM 06/08/2009 HEP [...] encounter Miscellaneous Notes * Telephone Encounter - Destiny Ramirez LPN - 03/02/2024 9:23 AM EDT Neb order was submitted to and is in process. * Telephone Encounter - Judi Broderick MD - 02/27/2024 3:36 PM EDT Looks like DME order created by pulmonology office? * Telephone Encounter - Kaye Ramirez OSA - 02/27/2024 11:21 AM EDT Patient came into the office to ask for a Nebulizer order to be placed. He has the meds. [facility] and they let him know that if he stopped into the office thatthey would be able to give him and RX for a DME The fax number for the order is * Telephone Encounter - Destiny Ramirez LPN - 02/27/2024 8:54 AM EDT The pt called requesting appt with Dr Navarro today or the beginning of next week, as he is "havinga lot of asthma trouble." I explained that Dr Navarro is out of the office until Mar 08. The pt plans to call his PCP or go to urgent care or the ER. documented in this encounter Plan of Treatment Upcoming Encounters Date Type Department Care Team (Late st Contact Info) Description 03/03/2024 6:15 AM EDT Anticoagulation [facility] Clinical Pharmacy Services, [address] [place] [address] [place] [address] 03/31/2024 2:45 PM EST Office Visit Urology, [facility] [address] [facility] [place] [address] Stuart Cullen MD [address] [place] [address] 04/20/2024 3:00 PM EST Office Visit Cardiology, [facility] 132 [facility] [place] [address] Ibis Garza PA-C [address] [facility] [place] [address] 06/01/2024 12:40 PM EST Office Visit Pulmonary Medicine, [facility] [address] [facility] [place] [address] Jose Alfredo Navarro MD [address] [facility] [place] [address] 07/09/2024 7:30 AM EST Office Visit Audiology [facility] [address] [place] [address] Kerline Desai Au.D. [address] [place] [address] 08/19/2024 1:00 PM EDT Office Visit Family Practice [place], [place] [address] [place], [place] [address] Judi Broderick MD [address] [place], [place] [address] Scheduled Procedures Name Priority Associated Diagnoses Date/Ti [...] this encounter Medical Devices Implanted Type Area Mailer Device Identifier Shelf Expiration Date Model / Serial / Lot Suture Steel 6 B&S19 M654g - [id number] Implanted:Qty : 8 on 07/19/2022 by Jordin Parish MD at [place] [facility] N/A: Sternum JNJ : [employer] 02/22/2027 M654G / / SLBJCL Valve Heart Mitral Epic 31mm - [id number] - [id number] Implanted:Qty : 1 on 07/19/2022 by Jordin Parish MD at OR [facility] N/A: Heart ST STEPH : CARDIOVASCULAR [id number] 01/24/2026 [id number]- 00 / [id number] / [id number] documented as of this encounter Advance Directives * Full Code [...] Advance Directives occurred with: Patient Care Teams Cold Meat Chef Relationship Specialty Start Date End Date Judi Broderick MD [address] [place] [address] PCP - General Family Medicine 02/24/23 documented as of this encounter
--- OUTSIDE RECORDS SUMMARY | 2024-04-14 21:28 | External Medical Summary | Summary of Care ---
Author Name Unknown Organization [facility] Address [address] [place] [address] Phone [phone] Care Team Providers Care Injection Molding Engineer Name Role Phone Judi Broderick MD Primary Care Provider [phone] Reason for Visit * Reason Comments Dosage Adjustment Via Phone (anticoag Cl inic) Encounter Details Date Type Department Care Team ([facility] st Contact Info) Description 03/04/2024 6:00 PM EDT Anticoagulation [facility], [facility] [address] [place] [address] [place] [address] [place] [address] Status post mitral valve replacement*; Paroxysmal atrial fibrillation (HCC); MSSA bacteremia Allergies Active Allergy Reactions Criticality Noted Date Comments Doxycycline 01/27/2020 Muscle rigidly Molds & Smuts Low 12/03/2019 Other reaction(s): Congested Pollen Extract Low 05/16/2022 Other reaction(s): Congested documented as of this encounter (statuses as of 03/04/2024) Medications Medication Sig Dispensed Refills Start Date [...] mouth in the evening as instructed by [facility] Coumadin [facility] 135 Tablet 1 06/03/2023 Active Additional Information Patient taking differently: 15 mg, Take one to one and one half tablet by mouth in the evening as instructed by [facility] Coumadin [facility], Reported on 11/07/2023 Magnesium Oxide 400 MG [...] as of this encounter (statuses as of 03/04/2024) Active Problems Problem Noted Date Diagnosed Date [...] as of this encounter (statuses as of 03/04/2024) Resolved Problems Problem Noted Date Diagnosed Date [...] as of this encounter (statuses as of 03/04/2024) Immunizations Name Administration Dates Next Due COVID-19 mRNA, LNP-s, No Pre serve, 2-Dose Series ([employer]) 02/21/2021,08/02/2020,07/05/2020 COVID-19, LNP-s, No Preserve , Rubio-sucrose, [...] as of this encounter Progress Notes * Karime Rodriguez RPh - 03/04/2024 4:15 PM EDT Noted Karime Rodriguez Rph, Pharm.D. Clinical Pharmacist [facility] Services ([facility]) [phone] 03/04/2024,4:15 PM Electronically signed by Karime Rodriguez [facility] at 03/04/2024 4:15 PM EDT * Tonja Cotter support associate - 03/04/2024 3:26 PM EDT Contacts Contact Date/Time Type Contact Phone/Fax 03/04/2024 03:09 PM EDT Phone (Outgoing) Jordin Mckeon (Self) [phone] (M) No Answer/Busy - pt wants a return call he was on hold with the pharmacy 03/04/2024 03:24 PM EDT Phone (Outgoing) Jordin Mckeon (Self) [phone] (M) Spoke to Patient Subjective Patient Findings Negatives: Signs/symptoms of bleeding, Change in health, Change in activity, Upcoming invasive procedure, Missed doses, Extra doses, Change in medications, Change in diet/appetite, Bruising Comments: Pt stated he will be fly out of the [place] from [place]. Message sent to [facility] Shadia. Pt was advise to activate his myG to have easy communication while out of the country. He stated [facility]will access [facility]. Also instructed pt to follow up with any signs of bruising or bleeding before, during, and after his trip. Recommended per [facility], if a long flight, pt should try to get up and walk and stretch legs to preventclots. Pt expressed understanding. Asked pt to have INR done if bruising or bleeding presents prior to trip, otherwise pt will follow up with INR on 03/29, call 03/30. (Appt's ricki'd) Advised patient to contact Anticoagulation Clinic if any unusual bruising or bleeding, recent illness, changes in medication, or questions/concerns. PT/INR results, Coumadin dose instructions, and next PT/INR date communicated as noted by Pharmacist: TIMI Garcia 03/04/2024, 3:37 PM * Karime Rodriguez RP - 03/04/2024 2:54 PM EDT Images from the original note were not included. Coumadin Clinic (region specific) Objective Current Warfarin Dose As of 03/04/2024 Warfarin maintenance plan: 25 mg (10 mg x 2.5) every Mon, Fri; 15 mg (10 mg x 1.5) all other days INR Result As of 03/04/2024 INR goal: 2.0-3.0 INR used for dosin.1 (03/04/2024) Assessment & Plan Warfarin Plan As of 03/04/2024 Full warfarin instructions: 03/04: Hold; 03/05: Hold; Otherwise 25 mg every Mon, Fri; 15 mg all other days Next INR check: 03/18/2024 Repeat PT/INR in 2 week(s) Weekly dose: not changed Additional Dosing Information: Description Regina Howard to contact patient with dose instructions as noted. Karime Rodriguez RPh 03/04/2024, 2:54 PM Electronically signed by Karime Rodriguez [facility] at 03/04/2024 4:15 PM EDT documented in this encounter Plan of Treatment Upcoming Encounters Date Type Department Care Team (Late st Contact Info) Description 03/29/2024 1:40 PM EST Laboratory Laboratory [facility] Tanya Lozano [address] [place] [id number] Kati Pollard [address] [place] [address] 03/30/2024 6:15 AM EST Anticoagulation Centralized Clinical Pharmacy Services, [facility] [address] [place] [address] [place] [address] [place] [address] 03/31/2024 2:45 PM EST Office Visit Urology, [facility] [address] [place] [address] Stuart Cullen MD [address] [place] [address] 04/20/2024 3:00 PM EST Office Visit Cardiology, [facility] [address] [place] [address] Ibis Garza PA-C [address] [facility] [place] [address] 06/01/2024 12:40 PM EST Office Visit Pulmonary Medicine, [facility] [address] [place] [address] Jose Alfredo Navarro MD [address] [place] [address] 07/09/2024 7:30 AM EST Office Visit Audiology [facility] 132 [facility] [address] Kerline Desai AuHarlan [address] [place] [address] 08/19/2024 1:00 PM EDT Office Visit Family Practice [facility] [address] [place] [address] Judi Broderick MD [address] [place] [address] Scheduled Procedures Name Priority Associated Diagnoses Date/Ti me COLONOSCOPY FLEXIBLE PROXIMA L DIAGNOSTIC Recall History of colonic polyps Health Maintenance Due Date Last Done Comments Adult Wellness Visit 2010 Zoster Vaccines (3 of 3) 01/17/2020 11/22/2019, 07/2 06/2012 Depression Monitoring 07/21/2021 07/21/2020 Mckeon's Esophagus Surveilance [...] this encounter Medical Devices Implanted Type Area Telephone Sex Worker Device Identifier Shelf Expiration Date Model / Serial / Lot Suture Steel 6 B&S19 M654g - [id number] Implanted:Qty : 8 on 07/19/2022 by Jordin Parish MD [place] [facility] [place]A: Sternum JNJ : [employer] 02/22/2027 M654G / / SLBJCL Valve Heart Mitral Epic 31mm - [id number] - [id number] Implanted:Qty : 1 on 07/19/2022 by Jordin Parish MD [place] [facility] N/A: Heart ST STEPH : CARDIOVASCULAR [id number] 01/24/2026 [id number]- 00 / [id number] / [id number] documented as of this encounter Visit Diagnoses [...] Advance Directives occurred with: Patient Care Teams Injection Molding Engineer Relationship Specialty Start Date End Date Judi Broderick MD [address] [place] [address] PCP - General Family Medicine 02/24/23 documented as of this encounter
--- OUTSIDE RECORDS SUMMARY | 2024-04-14 21:28 | External Medical Summary ---
Author Name Unknown Address Unknown Organization K09:[facility] [place] [address] Laboratory Report Ordering Provider Test Date Status CIARAKEILY 03/04/2024 13:41:58 Final Standing order for pt/inr. < br/>Please draw pt/inr every 1 to 4 weeks as requested
Results to [facility]

Warfarin Therapy
INR: 2.0-3.0 conventional anticoagulation
INR: 2.5-3.5 high intensity anticoagulation Observation Date Value Abnormality Reference (Units ) Status PT 03/04/2024 13:41:58 40.5 Above high normal 11 .6-15.2 (seconds) Final INR 03/04/2024 13:41:58 4.1 Above high normal 0. 8-1.2 Final Performing Location [facility] [place] [address]
--- OUTSIDE RECORDS SUMMARY | 2024-04-14 21:28 | External Medical Summary | Summary of Care ---
Author Name Unknown Organization [facility] Address [address] [place] [address] Phone [phone] Care Team Providers Care Stranding Supervisor Name Role Phone Judi Broderick MD Primary Care Provider [phone] Reason for Visit * Reason Onset Date Comments Order Request 02/27/2024 New nebulizer Encounter Details Date Type Department Care Team (Late st Contact Info) Description 02/27/2024 Telephone Pulmonary Medicine, [facility] [address] [place] [address] Jeannie Vincent CRNP [address] [facility] [place] [address] Order Request (New nebulizer) Allergies Active Allergy Reactions Criticality Noted Date Comments Doxycycline 01/27/2020 Muscle rigidly Molds & Smuts Low 12/03/2019 Other reaction(s): Congested Pollen Extract Low 05/16/2022 Other reaction(s): Congested documented as of this encounter (statuses as of 03/01/2024) Medications Medication Sig Dispensed Refills Start Date [...] mouth in the evening as instructed by [facility] 135 Tablet 1 06/03/2023 Active Additional Information Patient taking differently: 15 mg, Take one to one and one half tablet by mouth in the evening as instructed by [facility], Reported on 11/07/2023 Magnesium [...] Additional Information Patient not taking.Reported on 02/27/2024 predniSONE 20 MG Oral Tablet (Deltasone)Indicatio ns:Exacerbation of asthma, unspecified asthma severity, unspecified whether persistent Take 2 Tablets by mouth in the morning for 5 days. 10 Tablet 02/27/2024 Active documented as of this encounter (statuses as of 03/01/2024) Active Problems Problem Noted Date Diagnosed Date [...] as of this encounter (statuses as of 03/01/2024) Resolved Problems Problem Noted Date Diagnosed Date [...] as of this encounter (statuses as of 03/01/2024) Immunizations Name Administration Dates Next Due COVID-19 mRNA, LNP-s, No Pre serve, 2-Dose Series ([employer]) 02/21/2021,08/02/2020,07/05/2020 COVID-19, LNP-s, No Preserve , Rubio-sucrose, Ages 12+ (Pfizer) 08/30/2021 Covid-19, Mrna, Lnp-s, Pf, B ivalent, 30 Mcg, IM, 12 yrs and above ([employer]) 02/17/2022 H1N1 2009 Influenza, IM 06/08/2009 HEP [...] 01/17/2023 Does the household have a re lar source of income? (Household - for ages [...] EDT DME order for Nebulizer submitted to [employer]. * Telephone Encounter - Jeannie Vincent CRNP [...] Care Team (Late st Contact Info) Description 03/02/2024 6:15 AM EDT Anticoagulation Centralized Clinical Pharmacy Services, [facility] Beverly [address] [place] [address] [place] [address] [facility], [address] [place] [address] 03/31/2024 2:45 PM EST Office Visit Urology, [facility] 132 [facility] [place] [address] Stuart Cullen MD [address] [place] [address] 04/20/2024 3:00 PM EST Office Visit Cardiology, [facility] [address] [facility] [place] [address] Ibis Garza PA-C 400 [facility] [place] [address] 06/01/2024 12:40 PM EST Office Visit Pulmonary Medicine, [facility] 132 [facility] [place] [address] Jose Alfredo Navarro MD [address] [facility] [place] [address] 07/09/2024 7:30 AM EST Office Visit Audiology [facility] 132 [facility] [place] [address] Kerline Desai AuHarlan 132 [facility] [place] [address] 08/19/2024 1:00 PM EDT Office Visit Family Practice [facility] [address] [place] [address] Judi Broderick MD [address] [facility] [address] [place], [place] [address] Scheduled Procedures Name Priority Associated Diagnoses Date/Ti [...] this encounter Medical Devices Implanted Type Area Top Flavor Attendant Device Identifier Shelf Expiration Date Model / Serial / Lot Suture Steel 6 B&S19 M654g - [id number] Implanted:Qty : 8 on 07/19/2022 by Jordin Parish MD [place] [facility] [place]/A: Sternum JNJ : [employer] 02/22/2027 M654G / / SLBJCL Valve Heart Mitral Epic 31mm - [id number] - [id number] Implanted:Qty : 1 on 07/19/2022 by Jordin Parish MD at [place] [facility] N/A: Heart [employer] STEPH : CARDIOVASCULAR [id number] 01/24/2026 [id number]- 00 / [id number] / [id number] documented as of this encounter Visit Diagnoses [...] Advance Directives occurred with: Patient Care Teams Stranding Supervisor Relationship Specialty Start Date End Date Judi Broderick MD [address] [place] [address] PCP - General Family Medicine 02/24/23 documented as of this encounter
--- OUTSIDE RECORDS SUMMARY | 2024-04-14 21:28 | External Medical Summary | Summary of Care ---
Author Name Unknown Organization [facility] Address [address] [place] [address] Phone [phone] Care Team Providers Care Plasma Processing Centrifuge Operator Name Role Phone Judi Broderick MD Primary Care Provider [phone] Reason for Referral * Ancillary Services (Within 10 days (routine)) - Authorized Specialty Diagnoses / Procedures Referred By Contemma t Referred To Contact Audiology Diagnoses Bilateral hearing loss, unspecified hearing loss type Judi Broderick MD [address] [place] [address] [address] Referral ID Status Reason Start Date Expiration Date Visits Requested Visits Authorized [id number] Authorized Ancillary Services Required 02/20/2024 999 999 Question Answer Referral Priority Within 10 days (routine) Where should this appointment be scheduled? [facility] Reason for Referral: Hearing Loss Is this sudden hearing loss or post chemotherapy hearing loss? No Reason for Visit * Reason Comments Re-Check Encounter Details Date Type Department Care Team (Late st Contact Info) Description 02/20/2024 12:40 PM EDT Office Visit Family Practice [facility] [address] [place] [address] [address] Judi Broderick MD [address] [place] [address] [address] Bilateral hearing loss, unspecified hearing loss type*; Paroxysmal atrial fibrillation (HCC); Chronic diastolic heart failure (HCC); HTN, goal below 130/80; Mild persistent asthma without complication Allergies Active Allergy Reactions Criticality Noted Date Comments Doxycycline 01/27/2020 Muscle rigidly Molds & Smuts Low 12/03/2019 Other reaction(s): Congested Pollen Extract Low 05/16/2022 Other reaction(s): Congested documented as of this encounter (statuses as of 03/09/2024) Medications Medication Sig Dispensed Refills Start Date End Date Status B Complex Vitamins (VITAMIN-B COMPLEX) Tablet Take 1 Tab by mouth daily. Active Fluticasone Propionate 50 MCG/ACT Nasal Suspension (Flonase) Administer 2 Sprays into each nostril in the morning. Do not start before July 26, 2022. 15.8 mL 3 3 Active Docusate Sodium 100 MG Oral Capsule (Colace) Take 1 Capsule by mouth 2 times a day as needed for Constipation. 10 Capsule 3 Active Potassium Chloride Abigail ER 10 MEQ Oral Tablet Extended Release Take 1 Tablet by mouth in the morning. 90 Tablet 3 3 Active Triamcinolone Acetonide 0.1 % External Cream (Aristocort)Indica tions:Xerosis cutis,Rash and nonspecific skin eruption Apply to rash on back and arms twice daily for 2 weeks and then apply daily on Fri,Sat,Sun 450 g 1 4 Active Additional Information Patient not taking.Reported on 02/27/2024 Magnesium Oxide 400 MG Oral Capsule Take 1 Capsule by mouth in the morning. 30 Capsule 2 4 Active Tamsulosin HCl 0.4 MG Oral Capsule (Flomax)Indication s:BPH with obstruction/lower urinary tract symptoms TAKE 1 CAPSULE IN THE MORNING 90 Capsule 2 4 Active Vitamin C Oral Tablet Chewable Take 1 Tablet by mouth in the morning. Active Vitamin E 45 MG (100 UNIT) Oral Capsule Take by mouth. Active Fish Oil 300 MG Oral Capsule Take by mouth. Active Solifenacin Succinate 10 MG Oral Tablet (VESIcare) Take 1 Tablet by mouth in the morning. 30 Tablet 6 4 Active Finasteride 5 MG Oral Tablet (Proscar) Take 1 Tablet by mouth in the morning. 90 Tablet 3 4 Active Montelukast Sodium 10 MG Oral Tablet (Singulair)Indicat ions:Seasonal allergic rhinitis due to pollen TAKE 1 TABLET ONCE DAILY AT BEDTIME 90 Tablet 3 4 Active Allopurinol 100 MG Oral Tablet (Zyloprim)Indicati ons:Idiopathic chronic gout of multiple sites without tophus Take 2 Tablets by mouth in the morning and 2 Tablets before bedtime. 360 Tablet 1 4 Active Additional Information Patient not taking.Reported on 02/27/2024 Atorvastatin Calcium 40 MG Oral Tablet (Lipitor)Indicatio ns:Dyslipidemia, goal LDL below 70 Take 1 Tablet by mouth every afternoon. 90 Tablet 1 4 Active Cetirizine HCl 10 MG Oral Tablet (ZyrTEC)Indication s:Seasonal allergic rhinitis due to pollen Take 1 Tablet by mouth in the morning. 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 90 Tablet 1 4 Active Spironolactone 25 MG Oral Tablet (Aldactone)Indicat ions:Chronic diastolic heart failure (HCC) Take 1 Tablet by mouth in the morning. 90 Tablet 1 4 Active Cefadroxil 500 MG Oral Capsule (Duricef)Indicatio ns:Endocarditis due to methicillin susceptible Staphylococcus aureus (MSSA) Take 1 Capsule by mouth in the morning and 1 Capsule before bedtime. 90 Capsule 3 4 Active Furosemide 40 MG Oral Tablet (Lasix) Take 1 Tablet by mouth 2 times a day in the morning and at noon. 180 Tablet 3 4 Active Metoprolol Succinate ER 50 MG Oral Tablet Extended Release 24 Hour (toPROL XL) Take 1 Tablet by mouth daily. 180 Tablet 3 4 Active Tadalafil 5 MG Oral Tablet (Cialis)Indication s:Erectile dysfunction, unspecified erectile dysfunction type Take 1-2 tablets 30 minutes prior to intercourse. Do not take more than 10 mg in 24 hours 10 Tablet 1 4 Active Albuterol Sulfate HFA 108 (90 Base) MCG/ACT Inhalation Aerosol SolutionIndication s:Moderate persistent asthma with exacerbation Inhale 2 Puffs by mouth every 4 hours as needed for Cough, Shortness of Breath or Wheezing. 54 g 1 4 Active Budesonide-Formote rol Fumarate 160-4.5 MCG/ACT Inhalation Aerosol (Symbicort)Indicat ions:Mild persistent asthma without complication Inhale 2 Puffs by mouth in the morning and 2 Puffs before bedtime. 30.6 g 4 4 Active Full Kit Nebulizer Set Use with Nebulizer Medication EVERY SIX HOURS WHILE AWAKE as directed. Dx Code: J45.30 1 Each 3 4 Active Albuterol Sulfate 0.63 MG/3ML Inhalation Nebulization Solution (Accuneb) Inhale 1 Vial via nebulizer every 6 hours as needed for Wheezing or Shortness of Breath. 360 mL 4 024 Active methylPREDNISolone 4 MG Oral Tablet Therapy Pack (Medrol Dosepack) Follow package directions 21 Tablet 4 Active Additional Information Patient not taking.Reported on 02/27/2024 Warfarin Sodium 10 MG Oral Tablet (Coumadin)Indicati ons:Chronic atrial fibrillation (HCC) Take one to one and one half tablet by mouth in the evening as instructed by [facility] 135 Tablet 1 4 Discontinued(Re fill) predniSONE 20 MG Oral Tablet (Deltasone) Take 2 Tablets by mouth in the morning for 5 days. 10 Tablet 4 024 Discontinued Azithromycin 250 MG Oral Tablet (Zithromax Z-Buddy) Please take 500 mg by mouth on day one, followed by 250 mg by mouth for four days. 6 Tablet 4 024 Discontinued methylPREDNISolone 4 MG Oral Tablet Therapy Pack (Medrol Dosepack) follow package directions 21 Tablet 4 024 Discontinued documented as of this encounter (statuses as of 03/09/2024) Active Problems Problem Noted Date Diagnosed Date [...] as of this encounter (statuses as of 03/09/2024) Resolved Problems Problem Noted Date Diagnosed Date [...] as of this encounter (statuses as of 03/09/2024) Immunizations Name Administration Dates Next Due COVID-19 mRNA, LNP-s, No Pre serve, 2-Dose Series (Vidavee) 02/21/2021,08/02/2020,07/05/2020 COVID-19, LNP-s, No Preserve , Rubio-sucrose, Ages 12+ (Pfizer) 08/30/2021 Covid-19, Mrna, Lnp-s, Pf, B ivalent, 30 Mcg, IM, 12 yrs and above (Vidavee) 02/17/2022 H1N1 2009 Influenza, IM 06/08/2009 Pneumococcal [...] Sign Reading Time Taken Comments Blood Pressure 118/80 02/20/2024 12:40 PM EDT Pulse 89 02/20/2024 12:40 PM EDT Temperature 35.9 C (96.7 F) 02/20/2024 12:40 PM E DT Respiratory Rate 20 02/20/2024 12:40 PM EDT Oxygen Saturation 98% 02/20/2024 12:40 PM EDT Inhaled Oxygen Concentration - - Weight 108 kg (238 lb 1.9 oz) 02/20/2024 12:40 P M EDT Height - - Body Mass Index 38.43 02/09/2024 10:57 AM EDT documented in this encounter Functional Status Functional [...] as of this encounter Progress Notes * Judi Broderick MD - 02/20/2024 12:45 PM EDT Subjective Chief Complaint Patient presents with Re-Check HPI: Jordin Mckeon is a 78 year old male. Patient is unaccompanied. The following issues were addressed today: Patient with HFpEF on Lasix 40mg and spironolactone 25mg, a-fib on Toprol and warfarin, asthma on Symbicort BID and Singulair presents for routine follow-up. He denies any new concerns. expresses concern for decreased hearing. Patient would like referral to audiology for additional evaluation. He has a trip coming up to [place]. Would like a prescription for steroids to take with him in case he has an asthma exacerbation. Right now he feels well and denies any shortness of breath. Review of Systems: See HPI Objective BP 118/80 | Pulse 89 | Temp 35.9 C (96.7 F) (Tympanic) | Resp 20 | Wt 108 kg (238 lb 1.9 oz) | SpO2 98% | BMI 38.43 kg/m | BSA 2.24 m Wt Readings from Last 3 Encounters: 02/27/24 107.5 kg (237 lb) 02/20/24 108 kg (238 lb 1.9 oz) 02/09/24 109.3 kg (241 lb) BP Readings from Last 3 Encounters: 02/27/24 122/84 02/20/24 118/80 02/09/24 124/60 General: Well-appearing, no acute distress Cardiovascular: Regular rate and rhythm, no murmur Respiratory: Good respiratory effort, breath sounds equal and clear to auscultation bilaterally Neurological: Alert and oriented, no focal deficits noted Psychiatric: Appropriate mood and affect Assessment & Plan 1. Bilateral hearing loss, unspecified hearing loss type - AUDIOLOGY REFERRAL OP 2. Paroxysmal atrial fibrillation (HCC) Stable. Continue metoprolol. 3. Chronic diastolic heart failure (HCC) Continue current medications including Lasix 40mg and spironolactone 25mg. Continue daily weights. Advised to call if weight increases by 3+ lb in 24 hours or 5+ lb in a week, or if he develops shortness of breath. Follow-up with cardiology as scheduled. 4. HTN, goal below 130/80 Well-controlled. Continue current medications. 5. Mild persistent asthma without complication Stable. Continue current inhalers. Rx for Medrol dosepack sent to pharmacy for patient to take on trip in case of exacerbation. Return in about 6 months (around 08/19/2024) for routine follow-up. This note was electronically signed by Judi Broderick MD documented in this encounter Nursing Notes * Jerica Avila LPN - 02/20/2024 12:37 PM EDT Jordin Mckeon presents for 3 month recheck. Medications & HM reviewed. Denies any concerns at this time documented in this encounter Plan of Treatment Upcoming Encounters Date Type Department Care Team (Late st Contact Info) Description 03/29/2024 1:40 PM EST Laboratory Laboratory [facility] [place] [address] [facility] [place] [phone] [place] [facility] 200 [facility] [place] [address] 03/30/2024 6:15 AM EST Anticoagulation Centralized Clinical Pharmacy Services, [facility] [place] [address] [place] [address] [address] [address] [facility], [address] [place] [address] 03/30/2024 9:00 AM EST Office Visit Pharmacy, [facility] [place] 200 [facility] [place] [address] Pharmacist1, [facility] 200 [facility] [place] [address] 03/31/2024 2:45 PM EST [facility] [address] [address] Stuart Cullen MD [address] [address] 04/20/2024 3:00 PM EST [facility] [address] [address] Ibis Garza PA-C [address] [place] [address] 06/01/2024 12:40 PM EST Office Visit Pulmonary Medicine, [facility] 132 [facility] [place] [address] Jose Alfredo Navarro MD [address] [facility] [address] 07/09/2024 7:30 AM EST Office Visit Audiology [facility] 132 [facility] [place] [address] Kerline Desai Au.D. 132 [facility] [place] [address] 08/19/2024 1:00 PM EDT Office Visit Family Practice [facility] 200 [facility] [place] [address] Judi Broderick MD 200 [facility] [place], [place] [address] Scheduled Procedures Name Priority Associated Diagnoses Date/Ti me COLONOSCOPY FLEXIBLE PROXIMA L DIAGNOSTIC Recall History of colonic polyps Scheduled Referrals Name Type Priority Associated Diagnoses Orde r Schedule AUDIOLOGY REFERRAL OP Referral Within 10 days (routine) Bilateral hearing loss, unspecified hearing loss type Ordered: 02/20/2024 Health Maintenance Due Date Last Done Comments [...] this encounter Medical Devices Implanted Type Area Television News Anchor Device Identifier Shelf Expiration Date Model / Serial / Lot Suture Steel 6 B&S19 M654g - [id number] Implanted:Qty : 8 on 07/19/2022 by Jordin Parish MD at [facility] N/A: Sternum JNJ : [employer] 02/22/2027 M654G / / SLBJCL Valve Heart Mitral Epic 31mm - [id number] - [id number] Implanted:Qty : 1 on 07/19/2022 by Jordin Parish MD at OR [facility] N/A: Heart ST STEPH : CARDIOVASCULAR [id number] 01/24/2026 [id number] / [id number] / [id number] documented as of this encounter Visit Diagnoses Diagnosis Bilateral hearing loss, unspecified hearing loss type- Primary Paroxysmal atrial fibrillation (HCC) Atrial fibrillation Chronic diastolic heart failure (HCC) Chronic diastolic heart failure HTN, goal below 130/80 Unspecified essential hypertension Mild persistent asthma without complication Unspecified asthma documented in this encounter Advance Directives * [...] Advance Directives occurred with: Patient Care Teams Plasma Processing Centrifuge Operator Relationship Specialty Start Date End Date Judi Broderick MD [address] [place] [address] PCP - General Family Medicine 02/24/23 documented as of this encounter"
--- OUTSIDE RECORDS SUMMARY | 2024-04-14 21:28 | External Medical Summary | Summary of Care ---
Author Name Unknown Organization [facility] Address [address] [place] [address] Phone [phone] Care Team Providers Care Serials Librarian Name Role Phone Judi Broderick MD Primary Care Provider [phone] Reason for Visit * Reason Onset Date Comments Asthma 02/27/2024 Increased asthma problems Encounter Details Date Type Department Care Team (Late st Contact Info) Description 02/27/2024 Telephone Pulmonary Medicine, [facility] [address] [facility] [place] [address] Jose Alfredo Navarro MD [address] [facility] [place] [id number] Asthma (Increased asthma problems) Allergies Active Allergy Reactions Criticality Noted Date Comments Doxycycline 01/27/2020 Muscle rigidly Molds & Smuts Low 12/03/2019 Other reaction(s): Congested Pollen Extract Low 05/16/2022 Other reaction(s): Congested documented as of this encounter (statuses as of 02/27/2024) Medications Medication Sig Dispensed Refills Start Date [...] mouth in the evening as instructed by [facility] 135 Tablet 1 06/03/2023 Active Additional Information Patient taking differently: 15 mg, Take one to one and one half tablet by mouth in the evening as instructed by [facility], Reported on 11/07/2023 Magnesium Oxide [...] as of this encounter (statuses as of 02/27/2024) Active Problems Problem Noted Date Diagnosed Date [...] as of this encounter (statuses as of 02/27/2024) Resolved Problems Problem Noted Date Diagnosed Date [...] as of this encounter (statuses as of 02/27/2024) Immunizations Name Administration Dates Next Due COVID-19 mRNA, LNP-s, No Pre serve, 2-Dose Series (Melboss) 02/21/2021,08/02/2020,07/05/2020 COVID-19, LNP-s, No Preserve , Rubio-sucrose, Ages 12+ (Pfizer) 08/30/2021 Covid-19, Mrna, Lnp-s, Pf, B ivalent, 30 Mcg, IM, 12 yrs and above (Melboss) 02/17/2022 H1N1 2009 Influenza, IM 06/08/2009 HEP [...] encounter Miscellaneous Notes * Telephone Encounter - Judi Broderick MD [...] Anticoagulation Centralized Clinical Pharmacy Services, [facility] [address] [place] [address] [place] [address] [facility], [address] [place] [address] 03/31/2024 2:45 PM EST Office Visit Urology, [facility] 132 [facility] [place] [address] Stuart Cullen MD [address] [address] 04/20/2024 3:00 PM EST Office Visit Cardiology, [facility] 132 [facility] [place] [address] Ibis Garza PA-C 400 [facility] [place] [address] 06/01/2024 12:40 PM EST Office Visit Pulmonary Medicine, [facility] 132 [facility] [place] [address] Jose Alfredo Navarro MD [address] [place] [address] 07/09/2024 7:30 AM EST Office Visit Audiology [facility] 132 [facility] [place] [address] Kerline Desai Au.D. 132 [facility] [place] [address] 08/19/2024 1:00 PM EDT Office Visit Family Practice [facility] [place] 200 [facility] [place] [address] Judi Broderick MD 200 [facility] [place] [address] Scheduled Procedures Name Priority Associated Diagnoses Date/Ti [...] this encounter Medical Devices Implanted Type Area Part Time Device Identifier Shelf Expiration Date Model / Serial / Lot Suture Steel 6 B&S19 M654g - [id number] Implanted:Qty : 8 on 07/19/2022 by Jordin Parish MD at [place] [facility] N/A: Sternum JNJ : [employer] 02/22/2027 M654G / / TOOTIEJCL Valve Heart Mitral Epic 31mm - [id number] - [id number] Implanted:Qty : 1 on 07/19/2022 by Jordin Parish MD at [place] [facility] N/A: Heart ST STEPH : CARDIOVASCULAR [id number] 01/24/2026 [id number] 00 / [id number] / [id number] documented as of this encounter Advance Directives [...] Advance Directives occurred with: Patient Care Teams Serials Librarian Relationship Specialty Start Date End Date Judi Broderick MD [address] [place] [address] PCP - General Family Medicine 02/24/23 documented as of this encounter
--- OUTSIDE RECORDS SUMMARY | 2024-04-14 21:28 | External Medical Summary | Summary of Care ---
Author Name Unknown Organization [facility] Address [address] [place] [address] Phone [phone] Care Team Providers Care Landscape Architect And Planner Name Role Phone Judi Broderick MD Primary Care Provider [phone] Reason for Visit * Reason Onset Date Comments Asthma 02/27/2024 Increased asthma problems Encounter Details Date Type Department Care Team (Late st Contact Info) Description 02/27/2024 Telephone Pulmonary Medicine, [facility] [address] [facility] [place] [address] Jose Alfredo Navarro MD [address] [facility] [place] [id number] Asthma (Increased asthma problems) Allergies Active Allergy [...] mouth in the evening as instructed by [facility] 135 Tablet 1 06/03/2023 Active Additional Information Patient taking differently: 15 mg, Take one to one and one half tablet by mouth in the evening as instructed by [facility], Reported on 11/07/2023 Magnesium Oxide [...] mRNA, LNP-s, No Pre serve, 2-Dose Series (Optireno) 02/21/2021,08/02/2020,07/05/2020 COVID-19, LNP-s, No Preserve , Rubio-sucrose, Ages 12+ (Pfizer) 08/30/2021 Covid-19, Mrna, Lnp-s, Pf, B ivalent, 30 Mcg, IM, 12 yrs and above (Optireno) 02/17/2022 H1N1 2009 Influenza, IM 06/08/2009 HEP [...] Info) Description 03/03/2024 6:15 AM EDT Anticoagulation Centralized Clinical Pharmacy Services, [facility] [address] [place] [address] [place] [address] [facility], [address] [place] [address] 03/31/2024 2:45 PM EST Office Visit Urology, [facility] 132 [employer] [place] [address] Stuart Cullen MD [address] [place] [address] 04/20/2024 3:00 PM EST Office Visit Cardiology, [facility] 132 [facility] [place] [address] Ibis Garza PA-C 400 [facility] [place] [address] 06/01/2024 12:40 PM EST Office Visit Pulmonary Medicine, [facility] 132 [facility] [place] [address] Jose Alfredo Navarro MD [address] [place] [address] 07/09/2024 7:30 AM EST Office Visit Audiology [facility] 132 [facility] [place] [address] Kerline Desai Au.D. 132 [facility] [place] [address] 08/19/2024 1:00 PM EDT Office Visit Family Practice [facility] [place] 200 [facility] [place] [address] Judi Broderick MD 200 [facility] [place] [address] Scheduled Procedures Name Priority Associated Diagnoses Date/Ti [...] this encounter Medical Devices Implanted Type Area Machine Heel Sprayer Device Identifier Shelf Expiration Date Model / Serial / Lot Suture Steel 6 B&S19 M654g - [id number] Implanted:Qty : 8 on 07/19/2022 by Jordin Parish MD at OR [facility] N/A: Sternum JNJ : [employer] 02/22/2027 M654G / / TOOTIEJCL Valve Heart Mitral Epic 31mm - [id number] - [id number] Implanted:Qty : 1 on 07/19/2022 by Jordin Parish MD at OR [facility] N/A: Heart ST STEPH : CARDIOVASCULAR [id number] 01/24/2026 [id number] 00 / [id number] / [id number] documented as of this encounter Advance Directives [...] Advance Directives occurred with: Patient Care Teams Landscape Architect And Planner Relationship Specialty Start Date End Date uJdi Broderick MD [address] [place] [address] PCP - General Family Medicine 02/24/23 documented as of this encounter
--- OUTSIDE RECORDS SUMMARY | 2024-04-14 21:28 | External Medical Summary | Summary of Care ---
Author Name Unknown Organization [facility] Address [address] [place] [address] Phone [phone] Care Team Providers Care Evp Head Of [employer] Experience Strategy Name Role Phone Judi Broderick MD Primary Care Provider [phone] Reason for Visit * Reason Comments Outpatient Testing Encounter Details Date Type Department Care Team (Late st Contact Info) Description 03/04/2024 1:40 PM EDT Laboratory Laboratory [facility] [address] [place] [id number] [place], [address] Scenery [address] [place] [address] Paroxysmal atrial fibrillation (HCC) Allergies Active Allergy [...] mouth in the evening as instructed by [facility] 135 Tablet 1 06/03/2023 Active Additional Information Patient taking differently: 15 mg, Take one to one and one half tablet by mouth in the evening as instructed by [facility], Reported on 11/07/2023 Magnesium Oxide [...] mRNA, LNP-s, No Pre serve, 2-Dose Series ([employer]) 02/21/2021,08/02/2020,07/05/2020 COVID-19, LNP-s, No Preserve , Rubio-sucrose, Ages 12+ (Pfizer) 08/30/2021 Covid-19, Mrna, Lnp-s, Pf, B ivalent, 30 Mcg, IM, 12 yrs and above (Pfizer) 02/17/2022 H1N1 2008 Influenza, IM 06/08/2009 Pneumococcal [...] No 07/07/2022 documented as of this encounter Plan of Treatment Upcoming Encounters Date Type Department Care Team (Late st Contact Info) Description 03/05/2024 6:15 AM EDT Anticoagulation Centralized Clinical Pharmacy Services, Paige Beverly [address] [place] [address] [place] [address] [facility], [address] [place] [address] 03/31/2024 2:45 PM EST Office Visit Urology, [facility] [address] [facility] [place] [address] Stuart Cullen MD [address] [place] [address] 04/20/2024 3:00 PM EST Office Visit Cardiology, [facility] [address] [facility] [place] [address] Ibis Garza PA-C [facility] [address] 06/01/2024 12:40 PM EST Office Visit Pulmonary Medicine, [facility] [address] [facility] [place] [address] Jose Alfredo Navarro MD [address] [facility] [place] [address] 07/09/2024 7:30 AM EST Office Visit Audiology [facility] [place] [address] Kerline Desai Au.D. [address] [place] [address] 08/19/2024 1:00 PM EDT Office Visit Family Practice [facility] [address] [place] [address] Judi Broderick MD [address] [place] [address] Pending Results Name Type Priority Associated Diagnoses Date /Time PT INR Lab Routine Paroxysmal atrial fibrillation (HCC) 03/04/2024 1:41 PM EDT Scheduled Procedures Name Priority Associated Diagnoses Date/Ti [...] this encounter Medical Devices Implanted Type Area Ostomy Rn Device Identifier Shelf Expiration Date Model / Serial / Lot Suture Steel 6 B&S19 M654g - [id number] Implanted:Qty : 8 on 07/19/2022 [place] [facility] [place] Sternum JNJ : [employer] 02/22/2027 M654G / / SLBJCL Valve Heart Mitral Epic 31mm - [id number] - [id number] Implanted:Qty : 1 on 07/19/2022 by Jordin Parish [place] [facility] [place]/A: Heart ST STEPH : CARDIOVASCULAR [id number] 01/24/2026 [id number] 00 / [id number] / [id number] documented as of this encounter Visit Diagnoses [...] Advance Directives occurred with: Patient Care Teams Evp [employer] Experience Strategy Relationship Specialty Start Date End Date Judi Broderick MD [address] [place] [address] PCP - General Family Medicine 02/24/23 documented as of this encounter
--- OUTSIDE RECORDS SUMMARY | 2024-04-14 21:28 | External Medical Summary | Summary of Care ---
Author Name Unknown Organization [facility] Address [address] [place] [address] Phone [phone] Care Team Providers Care Advanced Solutions Architect Name Role Phone Jdui Broderick MD Primary Care Provider [phone] Reason for Visit * Reason Onset Date Comments Medication Refill 03/04/2024 Encounter Details Date Type Department Care Team (Late st Contact Info) Description [facility] [address] [facility] [address] Liz Chowdhury CRNP [address] [place] [address] Chronic atrial fibrillation (HCC) Allergies Active Allergy Reactions Criticality Noted Date Comments Doxycycline 01/27/2020 Muscle rigidly Molds & Smuts Low 12/03/2019 Other reaction(s): Congested Pollen Extract Low 05/16/2022 Other reaction(s): Congested documented as of this encounter (statuses as of 03/08/2024) Medications Medication Sig Dispensed Refills Start Date [...] mouth in the evening as instructed by [facility] 135 Tablet 1 03/08/2024 Active Warfarin Sodium 10 MG Oral Tablet (Coumadin)Indicatio ns:Chronic atrial fibrillation (HCC) Take one to one and one half tablet by mouth in the evening as instructed by [facility] 135 Tablet 1 06/03/2023 Discontinu ed(Refill) documented as of this encounter (statuses as of 03/08/2024) Active Problems Problem Noted Date Diagnosed Date [...] (deep vein thrombosis) 10/22/2017 Overview: Left popliteal 218 HTN, goal below 130/80 05/29/2016 Aortic valve stenosis 02/12/2016 Asthma, mild persistent 02/20/2015 documented as of this encounter (statuses as of 03/08/2024) Resolved Problems Problem Noted Date Diagnosed Date [...] as of this encounter (statuses as of 03/08/2024) Immunizations Name Administration Dates Next Due COVID-19 mRNA, LNP-s, No Pre serve, 2-Dose Series (GetSet) 02/21/2021,08/02/2020,07/05/2020 COVID-19, LNP-s, No Preserve , Rubio-sucrose, Ages 12+ (GetSet) 08/30/2021 Covid-19, Mrna, Lnp-s, Pf, B ivalent, [...] encounter Miscellaneous Notes * Telephone Encounter - Montserrat Braxton [facility] - 03/08/2024 12:51 PM EDTSigned Prescriptions: Disp Refills Warfarin Sodium 10 MG Oral Tablet (Coumadi*135 Ta*1 Sig: Take one to one and one half tablet by mouth in the evening as instructed by [facility] Authorizing Provider: LIZ CHOWDHURY Ordering User: MONTSERRAT BRAXTON * Telephone Encounter - Yuki Molina CPhT - 03/04/2024 3:37 PM EDT Did you pend patient's preferred pharmacy and medication before forwarding?yes Pharmacy: [facility]- [place] Pending Prescriptions: Disp Refills Warfarin Sodium 10 MG Oral Tablet (Coumad*135 Ta*1 Sig: Take one to one and one half tablet by mouth in the evening as instructed by [facility] Last Visit: 01/02/2024 (in office), Visit date not found (telemedicine) Next Visit: 04/20/2024 If no future appointments scheduled, and last appointment is greater than a year ago, please schedule patient for a follow-up appointment Last date the medication was ordered: 06/03/2023 Is this request for a controlled substance?No Urine Drug Screen:No results found. However, due to the size of the patient record, not all encounters were searched. Please check Results Review for a complete set of results. Patient Phone Numbers Labs: Lab Results Component Value Date/Time CREAT 0.9 01/22/2024 04:46 PM CREAT 0.79 06/24/2022 12:00 AM CREAT 0.9 02/11/2020 02:50 PM POTASSIUM 4.2 01/22/2024 04:46 PM POTASSIUM 3.7 07/19/2022 02:47 PM POTASSIUM 3.3 (A) 06/24/2022 12:00 AM POTASSIUM 3.9 02/11/2020 02:50 PM TSH 1.84 12/09/2019 03:13 PM LDL 64 01/02/2024 09:19 AM LDL 109 11/30/2018 10:00 AM LDL NOT APPLICABLE 11/30/2018 10:00 AM ALT 30 01/02/2024 09:19 AM ALT 39 01/26/2020 12:30 PM HGBA1C 5.4 07/09/2022 05:27 AM HGBA1C 5.0 10/25/2010 02:53 PM documented in this encounter Plan of Treatment Upcoming Encounters Date Type Department Care Team (Late st Contact Info) Description 03/29/2024 1:40 PM EST Laboratory Laboratory [facility] [place] [address] [place] [address] [id number] [address] [facility] [address] [place] [address] 03/30/2024 6:15 AM EST Anticoagulation Centralized Clinical Pharmacy Services, [facility] [place] [address] [place] [address] [place] [address] [facility], [address] [place] [address] 03/30/2024 9:00 AM EST Office Visit Pharmacy, [facility] [place] [address] [place] [address] Pharmacist1, [facility] [address] [place] [address] 03/31/2024 2:45 PM EST Office Visit Urology, [facility] 132 [facility] [place] [address] Stuart Cullen MD [address] [place] [address] 04/20/2024 3:00 PM EST Office Visit Cardiology, [facility] 132 [place] [address] Ibis Garza PA-C [address] [facility] [place] [address] 06/01/2024 12:40 PM EST Office Visit Pulmonary Medicine, [facility] 132 [facility] [place] [address] Jose Alfredo Navarro MD [address] [place] [address] 07/09/2024 7:30 AM EST Office Visit Audiology [facility] 132 [facility] [place] [address] Kerline Desai Au.D. 132 [place] [address] 08/19/2024 1:00 PM EDT Office Visit Family Practice [facility] 200 [facility] [place] [address] Judi Broderick MD 200 [facility] [place] [address] Scheduled Procedures Name Priority Associated Diagnoses Date/Ti [...] this encounter Medical Devices Implanted Type Area [place] Device Identifier Shelf Expiration Date Model / Serial / Lot Suture Steel 6 B&S19 M654g - [id number] Implanted:Qty : 8 on 07/19/2022 by Jordin Parish MD [place] [facility] [place]: Sternum JNJ : [employer] 02/22/2027 M654G / / SLBJCL Valve Heart Mitral Epic 31mm - [id number] - [id number] Implanted:Qty : 1 on 07/19/2022 by Jordin Parish MD [place] [facility] [place]/A: Heart ST STEPH : CARDIOVASCULAR [id number] 01/24/2026 [id number]- 00 / [id number] / [id number] documented as of this encounter Visit Diagnoses Diagnosis Chronic atrial fibrillation (HCC) Atrial fibrillation documented in [...] Advance Directives occurred with: Patient Care Teams Advanced Solutions Architect Relationship Specialty Start Date End Date Judi Broderick MD [address] [facility] [place] [address] PCP - General Family Medicine 02/24/23 documented as of this encounter
--- OUTSIDE RECORDS SUMMARY | 2024-04-14 21:29 | External Medical Summary | Summary of Care ---
Author Name Unknown Organization [facility] Address [address] [place] [address] Phone [phone] Care Team Providers Care Video Editing Intern Name Role Phone Judi Broderick MD Primary Care Provider [phone] Reason for Visit * Reason Onset Date Comments Asthma 02/27/2024 Increased asthma problems Encounter Details Date Type Department Care Team (Late st Contact Info) Description 02/27/2024 Telephone Pulmonary Medicine, [facility] [address] [facility] [place] [address] Jose Alfredo Navarro MD [address] [facility] [place] [id number] Asthma (Increased asthma problems) Allergies Active Allergy [...] mouth in the evening as instructed by [facility] 135 Tablet 1 06/03/2023 Active Additional Information Patient taking differently: 15 mg, Take one to one and one half tablet by mouth in the evening as instructed by [facility], Reported on 11/07/2023 Magnesium [...] before bedtime. 360 Tablet 1 01/02/2024 Active Atorvastatin Calcium 40 MG Oral Tablet [...] Follow package directions 21 Tablet 02/20/2024 Active documented as of this encounter (statuses [...] of inactive term GERD w/ Mckeon's esophagitis- 1211/18/2000 02/20/2015 Calculus of kidney 06/01/1999 7 LUMB-LUMBOSAC DISC DEGEN 03/12/199906/2016 Allergic rhinitis 06/29/1997 07/21/2020 documented as of this encounter (statuses as of 02/27/2024) Immunizations Name Administration Dates Next Due COVID-19 mRNA, LNP-s, No Pre serve, 2-Dose Series ([employer]) 02/21/2021,08/02/2020,07/05/2020 COVID-19, LNP-s, No Preserve , Rubio-sucrose, Ages 12+ (Pfizer) 08/30/2021 Covid-19, Mrna, Lnp-s, Pf, B ivalent, 30 Mcg, IM, 12 yrs and above ([employer]) 02/17/2022 H1N1 2009 Influenza, IM 06/08/2009 HEP [...] encounter Miscellaneous Notes * Telephone Encounter - Kaye Ramirez OSA [...] Anticoagulation Centralized Clinical Pharmacy Services, Paige Beverly [address] [place] [address] [place] [address] [facility] [place] [address] 03/31/2024 2:45 PM EST Office Visit Urology, [facility] 132 [facility] [place] [address] Stuart Cullen MD [address] [place] [address] 04/20/2024 3:00 PM EST Office Visit Cardiology, [facility] [address] [facility] [place] [address] Ibis Garza PA-C 400 [facility] [place] [address] 06/01/2024 12:40 PM EST Office Visit Pulmonary Medicine, [facility] 132 [place] [address] Jose Alfredo Navarro MD [address] [place] [address] 07/09/2024 7:30 AM EST Office Visit Audiology [facility] 132 [place] [address] Kerline Desai Au.D. 132 [place] [address] 08/19/2024 1:00 PM EDT Office Visit Family Practice [facility] 200 [place] [address] Judi Broderick MD 200 [place] [address] Scheduled Procedures Name Priority Associated Diagnoses Date/Ti [...] this encounter Medical Devices Implanted Type Area Catshovel Driver Device Identifier Shelf Expiration Date Model / Serial / Lot Suture Steel 6 B&S19 M654g - [id number] Implanted:Qty : 8 on 07/19/2022 by Jordin Parish MD at [place] [facility] [place]/A: Sternum JNJ : [employer] 02/22/2027 M654G / / SLBJCL Valve Heart Mitral Epic 31mm - [id number] - [id number] Implanted:Qty : 1 on 07/19/2022 by Jordin Parish MD at [place] [facility] [place] N/A: Heart ST STEPH : CARDIOVASCULAR [id number] 01/24/2026 [id number]- 00 / [id number] / [id number] documented as of this encounter Advance Directives [...] Advance Directives occurred with: Patient Care Teams Video Editing Intern Relationship Specialty Start Date End Date Judi Broderick MD 200 [place] [address] PCP - General Family Medicine 02/24/23 documented as of this encounter
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
--- OUTSIDE RECORDS SUMMARY | 2024-04-14 21:29 | External Medical Summary | Summary of Care ---
Author Name Unknown Organization [facility] Address [address] [place] [address] Phone [phone] Care Team Providers Care Labor Arbitrator Hearing Office Name Role Phone Judi Broderick MD Primary Care Provider [phone] Reason for Visit * Reason Onset Date Comments Order Request 02/27/2024 New nebulizer Encounter Details Date Type Department Care Team (Late st Contact Info) Description 02/27/2024 Telephone Pulmonary Medicine, [facility] [address] [place] [address] Jeannie Vincent CRNP [address] [facility] [place] [address] Order Request (New nebulizer) Allergies Active Allergy [...] mouth in the evening as instructed by [facility] 135 Tablet 1 06/03/2023 Active Additional Information Patient taking differently: 15 mg, Take one to one and one half tablet by mouth in the evening as instructed by [facility], Reported on 11/07/2023 Magnesium [...] mRNA, LNP-s, No Pre serve, 2-Dose Series (E-Duction) 02/21/2021,08/02/2020,07/05/2020 COVID-19, LNP-s, No Preserve , Rubio-sucrose, [...] No 01/17/2023 Does the household have a karmanos cancer centerr source of income? (Household - for ages [...] encounter Miscellaneous Notes * Telephone Encounter - Jeannie Vincent CRNP [...] Anticoagulation Centralized Clinical Pharmacy Services, Paige Beverly [address] [place] [address] [place] [address] [place] [address] 03/31/2024 2:45 PM EST Office Visit Urology, [address] [place] [address] Stuart Cullen MD [address] [place] [address] 04/20/2024 3:00 PM EST Office Visit Cardiology, [facility] [address] [facility] [place] [address] Ibis Garza PA-C [address] [place] [address] [place] [address] 06/01/2024 12:40 PM EST Office Visit Pulmonary Medicine, [facility] 132 [facility] [place] [address] Jose Alfredo Navarro MD [address] [place] [address] 07/09/2024 7:30 AM EST Office Visit Audiology [facility] 132 [facility] [place] [address] Kerline Desai Au.D. 132 [facility] [place] [address] 08/19/2024 1:00 PM EDT Office Visit Family Practice [facility] 200 [facility] [place] [address] Judi Broderick MD 200 [facility] [place] [address] Scheduled Procedures Name Priority Associated Diagnoses Date/Ti [...] this encounter Medical Devices Implanted Type Area Consulting Actuary Device Identifier Shelf Expiration Date Model / Serial / Lot Suture Steel 6 B&S19 M654g - [id number] Implanted:Qty : 8 on 07/19/2022 by Jordin Parish MD at OR [facility] N/A: Sternum JNJ : [employer] 02/22/2027 M654G / / SLBJCL Valve Heart Mitral Epic 31mm - [id number] - [id number] Implanted:Qty : 1 on 07/19/2022 by Jordin Parish MD at OR [facility] N/A: Heart [facility] STEPH : CARDIOVASCULAR [id number] 01/24/2026 F268-33C- 00 / [id number] / [id number] documented as of this encounter Visit Diagnoses [...] Advance Directives occurred with: Patient Care Teams Labor Arbitrator Hearing Office Relationship Specialty Start Date End Date Judi Broderick MD [address] [place] [address] PCP - General Family Medicine 02/24/23 documented as of this encounter
--- OUTSIDE RECORDS SUMMARY | 2024-04-14 21:29 | External Medical Summary | Summary of Care ---
Author Name Unknown Organization [facility] Address [address] [place] [address] Phone [phone] Care Team Providers Care Ring Rolling Machine Operator Name Role Phone Judi Broderick MD Primary Care Provider [phone] Reason for Referral * Evaluate & Treat - Unlimited Visits (Within 24 hrs (call dept; emergent)) - Authorized Specialty Diagnoses / Procedures Referred By Contemma t Referred To Contact Pharmacist / Pharmacy Diagnoses Exacerbation of asthma, unspecified asthma severity, unspecified whether persistent Demetria Tavares PA-C [address] [place] [address] Referral ID Status Reason Start Date Expiration Date Visits Requested Visits Authorized [id number] Authorized Specialty Services Required 02/27/2024 08/25/2024 99 99 Question Answer Referral Priority Within 24 hrs (call dept; emergent) Where should this appointment be scheduled? [facility] Referring Provider Role: Primary Care Reason for Referral: Asthma Comments Pharmacist Medication Therapy Management: Minimum frequency patient should be seen in person for medication management: as appropriate per clinical condition and patient status By my signature, I understand that my patient Jordin Mckeon will have his medication therapy managed by the [facility] Medication Therapy [facility] ([facility]) per established policies, procedures, and protocols. I also certify that this referral may serve as an initiation of service for the management of drug therapy in the above noted patient. [facility] providers will be responsible for scheduling patient visits, obtaining appropriate laboratory studies, and adjusting medication management therapy per patient's need, in addition to those roles spelled out in the clinic policy, procedures, and drug management protocols. I understand that the service provided by the [facility] is voluntary and have informed patient that they can refuse the service at their discretion. I am aware that the [facility] will provide me with a copy of the patient encounter via my [employer]. I authorize the [facility] to carry out these activities on my behalf. I consider this program to be a necessary part of the patient's medical care. Demetria Tavares PA-C Reason for Visit * Reason Onset Date Comments Med Request 02/27/2024 Encounter Details Date Type Department Care Team ([facility] st Contact Info) Description 02/27[facility] [address] [place] [address] Demetria Tavares PA-C [address] [place] [address] Med Request Allergies Active Allergy Reactions Criticality Noted Date [...] mouth in the evening as instructed by [facility] 135 Tablet 1 06/03/2023 Active Additional Information Patient taking differently: 15 mg, Take one to one and one half tablet by mouth in the evening as instructed by [facility], Reported on 11/07/2023 Magnesium [...] chronic gout of multiple sites withou t youngs 12/12/2017 History of DVT (deep vein thrombosis) [...] mRNA, LNP-s, No Pre serve, 2-Dose Series (SaferTaxi) 02/21/2021,08/02/2020,07/05/2020 COVID-19, LNP-s, No Preserve , Rubio-sucrose, [...] encounter Miscellaneous Notes * Telephone Encounter - Demetria Tavares PA-C - 02/27/2024 12:20 PM EDT Pharmacy [facility] called spoke Diana Pt here as needs new nebulizer as lost other. Knows might need to pay full amt for the machine due to insurance not paying for another so soon. Pt is having inc symptoms w/o the nebulizer tx documented in this encounter Plan of Treatment Upcoming Encounters Date Type Department Care Team (Late st Contact Info) Description 03/02/2024 6:15 AM EDT Anticoagulation [facility], Paige Beverly [address] [place] [address] [place] [address] [facility], [address] [place] [address] 03/31/2024 2:45 PM EST Office Visit Urology, [facility] [address] [place] [address] Stuart Cullen MD [address] [place] [address] 04/20/2024 3:00 PM EST Office Visit Cardiology, [facility] [address] [facility] [place] [address] Ibis Garza PA-C [address] [facility] [place] [address] 06/01/2024 12:40 PM EST Office Visit Pulmonary Medicine, [facility] [address] [facility] [place] [address] Jose Alfredo Navarro MD [address] [place] [address] 07/09/2024 7:30 AM EST Office Visit Audiology [facility] [address] [place] [address] Kerline Desai Au.D. [address] [place] [address] 08/19/2024 1:00 PM EDT Office Visit [facility] [address] [place], [place] [address] Judi Broderick MD [address] [place], [place] [address] Scheduled Procedures Name Priority Associated Diagnoses Date/Ti me COLONOSCOPY FLEXIBLE PROXIMA L DIAGNOSTIC Recall History of colonic polyps Scheduled Referrals Name Type Priority Associated Diagnoses Orde r Schedule PHARMACIST MEDS THERAPY MGMT REFERRAL OP Referral Within 24 hrs (call dept; emergent) Exacerbation of asthma, unspecified asthma severity, unspecified whether persistent Ordered: 02/27/2024 Health Maintenance Due Date Last Done Comments [...] this encounter Medical Devices Implanted Type Area Dye Room Helper Device Identifier Shelf Expiration Date Model / Serial / Lot Suture Steel 6 B&S19 M654g - [id number] Implanted:Qty : 8 on 07/19/2022 by Jordin Parish MD at OR [facility] N/A: Sternum JNJ : [employer] 02/22/2027 M654G / / SLBJCL Valve Heart Mitral Epic 31mm - [id number] - [id number] Implanted:Qty : 1 on 07/19/2022 by Jordin Parish MD at OR [facility] N/A: Heart ST STEPH : CARDIOVASCULAR [id number] 01/24/2026 N195-08H- 00 / [id number] / [id number] documented as of this encounter Visit Diagnoses Diagnosis Exacerbation of asthma, unspecified asthma severity, unspecified whether persistent- Primary documented in this encounter Advance Directives * [...] Advance Directives occurred with: Patient Care Teams Ring Rolling Machine Operator Relationship Specialty Start Date End Date Judi Broderick MD [address] [facility] [place] [address] PCP - General Family Medicine 02/24/23 documented as of this encounter
--- OUTSIDE RECORDS SUMMARY | 2024-04-14 21:29 | External Medical Summary | Summary of Care ---
Author Name Unknown Organization [facility] Address [address] [place] [address] Phone [phone] Care Team Providers Care It Associate Name Role Phone Judi Broderick MD Primary Care Provider [phone] Reason for Visit * Reason Onset Date Comments Asthma 02/27/2024 Increased asthma problems Encounter Details Date Type Department Care Team (Late st Contact Info) Description 02/27/2024 Telephone Pulmonary Medicine, [facility] [address] [facility] [place] [address] Jose Alfredo Navarro MD [address] [facility] [place] [phone] Asthma (Increased asthma problems) Allergies Active Allergy [...] mouth in the evening as instructed by [facility] 135 Tablet 1 06/03/2023 Active Additional Information Patient taking differently: 15 mg, Take one to one and one half tablet by mouth in the evening as instructed by [facility], Reported on 11/07/2023 [...] mRNA, LNP-s, No Pre serve, 2-Dose Series (uchoose) 02/21/2021,08/02/2020,07/05/2020 COVID-19, LNP-s, No Preserve , Rubio-sucrose, [...] Info) Description 03/02/2024 6:15 AM EDT Anticoagulation [facility], [facility] [address] [place] [address] [place] [address] [place] [address] 03/31/2024 2:45 PM EST Office Visit Urology, [facility] [address] [facility] [place] [address] Stuart Cullen MD [address] [place] [address] [place] [address] 04/20/2024 3:00 PM EST Office Visit Cardiology, [facility] [address] [facility] [place] [address] Ibis Garza PA-C [address] [place] [address] [place] [address] 06/01/2024 12:40 PM EST Office Visit Pulmonary Medicine, [facility] [address] [facility] [place] [address] Jose Alfredo Navarro MD [address] [place] [address] 07/09/2024 7:30 AM EST Office Visit Audiology [facility] [address] [place] [address] Kerline Desai Au.D. [address] [place] [address] 08/19/2024 1:00 PM EDT Office Visit Family Practice [facility] [address] [facility] [place] [address] Judi Broderick MD [address] [facility] [place] [address] Scheduled Procedures Name Priority Associated Diagnoses Date/Ti [...] this encounter Medical Devices Implanted Type Area Raw Sampler Device Identifier Shelf Expiration Date Model / Serial / Lot Suture Steel 6 B&S19 M654g - [id number] Implanted:Qty : 8 on 07/19/2022 by Jordin Parish MD at [place] [facility] [place] N/A: Sternum JNJ : [employer] 02/22/2027 M654G / / SLBJCL Valve Heart Mitral Epic 31mm - [id number] - [id number] Implanted:Qty : 1 on 07/19/2022 by Jordin Parish MD at OR [facility] [place] N/A: Heart ST STEPH : CARDIOVASCULAR [id number] 01/24/2026 L576-18H- 00 / [id number] / [id number] documented as of this encounter Advance Directives [...] Advance Directives occurred with: Patient Care Teams It Associate Relationship Specialty Start Date End Date Judi Broderick MD [address] [place] [address] PCP - General Family Medicine 02/24/23 documented as of this encounter
--- OUTSIDE RECORDS SUMMARY | 2024-04-14 21:30 | External Medical Summary | Summary of Care ---
Author Name Unknown Organization [facility] Address [address] [place] [address] Phone [phone] Care Team Providers Care Furnace Operator And Tender Name Role Phone Judi Broderick MD Primary Care Provider [phone] Reason for Visit * Reason Comments Dosage Adjustment Via Phone (anticoag Cl inic) Encounter Details Date Type Department Care Team (Late st Contact Info) Description 02/10/2024 6:15 AM EDT [facility], Paige Beverly [address] [place] [address] [place] [address] [place] [address] Status post mitral valve replacement*; Paroxysmal atrial fibrillation (HCC); MSSA bacteremia Allergies Active Allergy Reactions Criticality Noted Date Comments Doxycycline 01/27/2020 Muscle rigidly Molds & Smuts Low 12/03/2019 Other reaction(s): Congested Pollen Extract Low 05/16/2022 Other reaction(s): Congested documented as of this encounter (statuses as of 02/10/2024) Medications Medication Sig Dispensed Refills Start Date [...] needed for Constipation. 10 Capsule 07/25/2022 Active Additional Information Patient not taking.Reported on 12/10/2023 Potassium Chloride Abigail ER 10 MEQ Oral [...] the evening as instructed by [facility] 135 Tablet 1 06/03/2023 Active Additional Information Patient taking differently: 15 mg, Take one to one and one half tablet by mouth in the evening as instructed by [facility], Reported on 11/07/2023 Magnesium [...] before bedtime. 30.6 g 4 02/09/2024 Active Azithromycin 250 MG Oral Tablet (Zithromax Z-Buddy) Please take 500 mg by mouth on day one, followed by 250 mg by mouth for four days. 6 Tablet 02/09/2024 Active methylPREDNISolone 4 MG Oral Tablet Therapy Pack (Medrol Dosepack) follow package directions 21 Tablet 02/09/2024 Active Full Kit Nebulizer Set Use with Nebulizer Medication EVERY SIX HOURS WHILE AWAKE as directed. Dx Code: J45.30 1 Each 3 02/09/2024 Active Albuterol Sulfate 0.63 MG/3ML Inhalation Nebulization Solution (Accuneb) Inhale 1 Vial via nebulizer every 6 hours as needed for Wheezing or Shortness of Breath. 360 mL 02/09/2024 Active documented as of this encounter (statuses as of 02/10/2024) Active Problems Problem Noted Date Diagnosed Date [...] as of this encounter (statuses as of 02/10/2024) Resolved Problems Problem Noted Date Diagnosed Date [...] as of this encounter (statuses as of 02/10/2024) Immunizations Name Administration Dates Next Due COVID-19 mRNA, LNP-s, No Pre serve, 2-Dose Series (VectorMAX) 02/21/2021,08/02/2020,07/05/2020 COVID-19, LNP-s, No Preserve , Rubio-sucrose, [...] Preserve, IM 02/22/2016,02/20/2015 Seasonal Influenza, Trivalen t, (IIV3), with Preserv, (Fluzone) 02/17/2014,03/16/2013,02/03/2012,01/24,02/15/2010,02/14/2009,05/03/20 08,03/09/2007 02/05/2012 Seasonal Influenza, Trivalen t, Adjuvanted, 65+ YRS, [...] Progress Notes * Kely Dunlap CPhT - 02/10/2024 9:35 AM EDT Contacts Contact Date/Time Type Contact Phone/Fax 02/10/2024 09:32 AM EDT Phone (Outgoing) Jordin cMkeon (Self) [phone] (M) Spoke to Patient Subjective Patient Findings [...] noted by Pharmacist: Yes KELY DUNLAP CPhT 02/10/2024, 9:35 AM * Karime Rodriguez [facility] - 02/10/2024 9:26 AM EDT Images from the original note were not included. Coumadin Clinic (region specific) Objective Current Warfarin Dose As of 02/10/2024 Warfarin maintenance plan: 25 mg (10 mg x 2.5) every Mon, Fri; 15 mg (10 mg x 1.5) all other days INR Result As of 02/10/2024 INR goal: 2.0-3.0 INR used for dosin.0 (02/09/2024) Assessment & Plan Warfarin Plan As of 02/10/2024 Full warfarin instructions: 02/09: 25 mg; 02/10: 20 mg; Otherwise 25 mg every Mon, Fri; 15 mg all other days Next INR check: 02/16/2024 Repeat PT/INR in 1 week(s) Weekly dose: not changed Additional Dosing Information: Description Health System to contact patient with dose instructions as noted. Karime Rodriguez RPh 02/10/2024, 9:26 AM documented in this encounter Plan of Treatment Upcoming Encounters Date Type Department Care Team (Late st Contact Info) Description 02/20/2024 12:40 PM EDT Office Visit Family Practice [facility] [address] [facility] [place] [address] Judi Broderick MD 200 [place] [address] 03/31/2024 2:45 PM EST Office Visit Urology, [facility] 132 [facility] [place] [address] Stuart Cullen MD 27 [facility] [place] [address] 04/20/2024 3:00 PM EST Office Visit Cardiology, [facility] 132 [facility] [place] [address] Ibis Garza PA-C 400 [facility] [place] [address] Scheduled Procedures Name Priority Associated Diagnoses Date/Ti me COLONOSCOPY FLEXIBLE PROXIMA L DIAGNOSTIC Recall History of colonic polyps Health Maintenance Due Date Last Done Comments Adult Wellness Visit 2010 Zoster Vaccines (3 of 3) 01/17/2020 11/22/2019, 11/24 Depression Monitoring 07/21/2021 07/21/2020 Mckeon's Esophagus Surveilance 02/14/2023 02/15/2020, 06/06/2009, 05/12/2008 COVID-19 Vaccine ( season) 2024 02/18/2023, 02/17/2022, 08/30/2021, Additional history exists Albumin/Creatinine Ratio 09/03/2024 09/03/2021 GFR 01/21/2025 01/22/2024, [...] Completed 02/09/2024, 02/03/2023, 02/14/2022, Additional history exists HPV (Gardasil) Vaccine Aged Out No lo nger eligible based on patient's age to complete this topic MENINGOCOCCAL (MENACTRA/MENVEO) Aged Out No longer eligible based on patient's age to complete this topic documented as of this encounter Medical Devices Implanted Type Area Film Drying Machine Operator Device Identifier Shelf Expiration Date Model / Serial / Lot Suture Steel 6 B&S19 M654g - [id number] Implanted:Qty : 8 on 07/19/2022 [place] Jordin Parish [place] [facility] [place]A: Sternum JNJ : [employer] 02/22/2027 M654G / / SLBJCL Valve Heart Mitral Epic 31mm - [id number] - [id number] Implanted:Qty : 1 on 07/19/2022 by Jordin Parish [place] [facility] [place] [place] N/A: Heart ST STEPH : CARDIOVASCULAR [id number] 01/24/2026 [id number]- 00 / [id number] / [id number] documented as of this encounter Visit Diagnoses [...] Advance Directives occurred with: Patient Care Teams Furnace Operator And Tender Relationship Specialty Start Date End Date Judi Broderick MD [address] [facility] [place] [address] PCP - General Family Medicine 02/24/23 documented as of this encounter
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
--- OUTSIDE RECORDS SUMMARY | 2024-04-14 21:30 | External Medical Summary ---
Author Name Unknown Address Unknown Organization [id number]:[facility] - [address] [place] [address] Laboratory Report Ordering Provider Test Date Status KEILY URBINA 02/16/2024 16:42:30 Final Standing order for pt/inr. < br/>Please draw pt/inr every 1 to 4 weeks as requested
Results to [facility]

Warfarin Therapy
INR: 2.0-3.0 conventional anticoagulation
INR: 2.5-3.5 high intensity anticoagulation Observation Date Value Abnormality Reference (Units ) Status PT 02/16/2024 16:42:30 27.3 Above high normal 11 .6-15.2 (seconds) Final INR 02/16/2024 16:42:30 2.5 Above high normal 0. 8-1.2 Final Performing Location [facility] [address] [facility] [address]
--- OUTSIDE RECORDS SUMMARY | 2024-04-14 21:30 | External Medical Summary | Summary of Care ---
Author Name Unknown Organization [facility] Address [address] [place] [address] Phone [phone] Care Team Providers Care [place] Leverman Name Role Phone Judi Broderick MD Primary Care Provider [phone] Reason for Visit * Reason Comments Outpatient Testing Encounter Details Date Type Department Care Team (Late st Contact Info) Description 02/09/2024 4:40 PM EDT Laboratory Laboratory [facility] [address] [place] [phone] [place], [address] [place] [address] Paroxysmal atrial fibrillation (HCC) Allergies Active Allergy [...] mouth in the evening as instructed by [facility] 135 Tablet 1 06/03/2023 Active Additional Information Patient taking differently: 15 mg, Take one to one and one half tablet by mouth in the evening as instructed by [facility], Reported on 11/07/2023 Magnesium Oxide [...] mRNA, LNP-s, No Pre serve, 2-Dose Series ([employer]) 02/21/2021,08/02/2020,07/05/2020 COVID-19, LNP-s, No Preserve , Rubio-sucrose, [...] Anticoagulation [facility], Paige Beverly [address] [place] [address] [place] [address] [facility], [address] [place] [address] 02/20/2024 12:40 PM EDT Office Visit Family Practice [facility] [address] [facility] [place] [address] Judi Broderick MD [address] [facility] [place] [address] 03/31/2024 2:45 PM EST Office Visit Urology, [facility] [address] [facility] [place] [address] Stuart Cullen MD [address] [facility] [place] [address] 04/20/2024 3:00 PM EST Office Visit Cardiology, [facility] [address] [facility] [place] [address] Ibis Garza PA-C [address] [facility] [place] [address] Pending Results Name Type Priority Associated Diagnoses Date /Time PT INR Lab Routine Paroxysmal atrial fibrillation (HCC) 02/09/2024 4:13 PM EDT Scheduled Procedures Name Priority Associated [...] this encounter Medical Devices Implanted Type Area Food Runner Device Identifier Shelf Expiration Date Model / Serial / Lot Suture Steel 6 B&S19 M654g - [id number] Implanted:Qty : 8 on 07/19/2022 by Jordin Parish MD [facility] N/A: Sternum JNJ : [employer] 02/22/2027 M654G / / SLBJCL Valve Heart Mitral Epic 31mm - [id number] - [id number] Implanted:Qty : 1 on 07/19/2022 by Jordin Parish MD at [facility] N/A: Heart ST STEPH : CARDIOVASCULAR [id number] 01/24/2026 S692-45L- 00 / [id number] / [id number] documented as of this encounter Visit Diagnoses [...] Advance Directives occurred with: Patient Care Teams [place] Relationship Specialty Start Date End Date Judi Broderick MD [address] [facility] [place] [address] PCP - General Family Medicine 02/24/23 documented as of this encounter
--- OUTSIDE RECORDS SUMMARY | 2024-04-14 21:30 | External Medical Summary | Summary of Care ---
Author Name Unknown Organization [facility] Address [address] [place] [address] Phone [phone] Care Team Providers Care Digital Marketing Executive Name Role Phone Judi Broderick MD Primary Care Provider [phone] Reason for Visit * Reason Comments Outpatient Testing Encounter Details Date Type Department Care Team (Late st Contact Info) Description 02/16/2024 4:40 PM EDT Laboratory Laboratory [facility] [address] [place] [phone] [place], Lab Scenery [address] [place] [address] Arrived Allergies Active Allergy Reactions Criticality Noted Date Comments Doxycycline 01/27/2020 Muscle rigidly Molds & Smuts Low 12/03/2019 Other reaction(s): Congested Pollen Extract Low 05/16/2022 Other reaction(s): Congested documented as of this encounter (statuses as of 02/16/2024) Medications Medication Sig Dispensed Refills Start Date [...] in the evening as instructed by [facility] 135 Tablet 1 06/03/2023 Active Additional Information Patient taking differently: 15 mg, Take one to one and one half tablet by mouth in the evening as instructed by [facility], Reported on 11/07/2023 Magnesium [...] as of this encounter (statuses as of 02/16/2024) Active Problems Problem Noted Date Diagnosed Date [...] as of this encounter (statuses as of 02/16/2024) Resolved Problems Problem Noted Date Diagnosed Date [...] as of this encounter (statuses as of 02/16/2024) Immunizations Name Administration Dates Next Due COVID-19 mRNA, LNP-s, No Pre serve, 2-Dose Series ([employer]) 02/21/2021,08/02/2020,07/05/2020 COVID-19, LNP-s, No Preserve , Rubio-sucrose, [...] Care Team (Late st Contact Info) Description 02/17/2024 6:15 AM EDT Anticoagulation [facility], Paige Beverly [address] [place] [address] [place] [address] [facility], [address] [place] [address] 02/20/2024 12:40 PM EDT Office Visit Family Practice [facility] 200 [facility] [place] [address] Judi Broderick MD 200 [facility] [place] [address] 03/31/2024 2:45 PM EST Office Visit Urology, [facility] 132 [facility] [place] [address] Stuart Cullen MD 27 [facility] [place] [address] 04/20/2024 3:00 PM EST Office Visit Cardiology, [facility] 132 [facility] [place] [address] Ibis Garza PA-C 400 [facility] [place] [address] 06/01/2024 12:40 PM EST Office Visit Pulmonary Medicine, [facility] 132 [facility] [place] [address] Jose Alfredo Navarro MD [address] [place] [address] Scheduled Procedures Name Priority Associated Diagnoses Date/Ti [...] encounter Medical Devices Implanted Type Area Television Newscast Director Device Identifier Shelf Expiration Date Model / Serial / Lot Suture Steel 6 B&S19 M654g - [id number] Implanted:Qty : 8 on 07/19/2022 by J[place] [facility] [place]: Sternum JNJ : [employer] 02/22/2027 M654G / / SLBJCL Valve Heart Mitral Epic 31mm - [id number] - [id number] Implanted:Qty : 1 on 07/19/2022 by Jordin Parish MD [place] [facility] [place]/A: Heart ST STEPH : CARDIOVASCULAR [id number] 01/24/2026 [id number] 00 / [id number] / [id number] documented as of this encounter Advance Directives [...] Advance Directives occurred with: Patient Care Teams Digital Marketing Executive Relationship Specialty Start Date End Date Judi Broderick MD [address] [place] [address] PCP - General Family Medicine 02/24/23 documented as of this encounter
--- OUTSIDE RECORDS SUMMARY | 2024-04-14 21:30 | External Medical Summary | Summary of Care ---
Author Name Unknown Organization [facility] Address [address] [place] [address] Phone [phone] Care Team Providers Care Disease Control Inspector Name Role Phone Judi Broderick MD Primary Care Provider [phone] Reason for Visit * Reason Comments Dosage Adjustment Via Phone (anticoag Cl inic) Encounter Details Date Type Department Care Team (Late st Contact Info) Description 02/17/2024 6:15 AM EDT Anticoagulation Centralized Clinical Pharmacy Services, Paige Beverly [address] [place] [address] [place] [address] [place] [address] Status post mitral valve replacement*; Paroxysmal atrial fibrillation (HCC); MSSA bacteremia Allergies Active Allergy Reactions Criticality Noted Date Comments Doxycycline 01/27/2020 Muscle rigidly Molds & Smuts Low 12/03/2019 Other reaction(s): Congested Pollen Extract Low 05/16/2022 Other reaction(s): Congested documented as of this encounter (statuses as of 02/17/2024) Medications Medication Sig Dispensed Refills Start Date [...] mouth in the evening as instructed by [facility] 135 Tablet 1 06/03/2023 Active Additional Information Patient taking differently: 15 mg, Take one to one and one half tablet by mouth in the evening as instructed by [facility], Reported on 11/07/2023 Magnesium [...] as of this encounter (statuses as of 02/17/2024) Active Problems Problem Noted Date Diagnosed Date [...] as of this encounter (statuses as of 02/17/2024) Resolved Problems Problem Noted Date Diagnosed Date Resolved Date Drug eruption 03/19/2020 07/21/2020 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 Non-traumatic rhabdomyolysis 01/07/2020 07/21/2020 LTARELL (acute kidney injury) 01/07/2020 Elevated liver enzymes [...] as of this encounter (statuses as of 02/17/2024) Immunizations Name Administration Dates Next Due COVID-19 mRNA, LNP-s, No Pre serve, 2-Dose Series ([employer]) 02/21/2021,08/02/2020,07/05/2020 COVID-19, LNP-s, No Preserve , Rubio-sucrose, [...] Progress Notes * Kely Dunlap CPhT - 02/17/2024 8:50 AM EDT Contacts Contact Date/Time Type Contact Phone/Fax 02/17/2024 08:49 AM EDT Phone (Outgoing) Jordin Mckeon (Self) [phone] (M) Spoke to Patient Subjective Patient Findings [...] noted by Pharmacist: Yes KELY DUNLAP CPhT 02/17/2024, 8:50 AM * Karime Rodriguez RPh - 02/17/2024 8:45 AM EDT Coumadin Clinic (region specific) Objective Current Warfarin Dose As of 02/17/2024 Warfarin maintenance plan: 25 mg (10 mg x 2.5) every Mon, Fri; 15 mg (10 mg x 1.5) all other days INR Result As of 02/17/2024 INR goal: 2.0-3.0 INR used for dosin.5 (02/16/2024) Assessment & Plan Warfarin Plan As of 02/17/2024 Full warfarin instructions: 25 mg every Mon, Fri; 15 mg all other days No change documented: Karime Rodriguez RPh Next INR check: 02/23/2024 Repeat PT/INR in 1 week(s) Weekly dose: not changed Additional Dosing Information: Description [facility] Anita to contact patient with dose instructions as noted. Karime Rodriguez RPh 02/17/2024, 8:45 AM documented in this encounter Plan of Treatment Upcoming Encounters Date Type Department Care Team (Late st Contact Info) Description 02/20/2024 12:40 PM EDT Office Visit [facility] 200 [facility] [place] [address] Judi Broderick MD 200 [facility] [address] 03/31/2024 2:45 PM EST Office Visit Urology, [facility] [address] [place] [address] Stuart Cullen MD [address] [place] [address] 04/20/2024 3:00 PM EST Office Visit Cardiology, [facility] [address] [place] [address] Ibis Garza PA-C 400 [facility] [place] [address] 06/01/2024 12:40 PM EST Office Visit Pulmonary Medicine, [facility] [address] [place] [address] Jose Alfredo Navarro MD [address] [place] [address] Scheduled Procedures Name Priority Associated Diagnoses Date/Ti [...] this encounter Medical Devices Implanted Type Area Timber Hewer Device Identifier Shelf Expiration Date Model / Serial / Lot Suture Steel 6 B&S19 M654g - [id number] Implanted:Qty : 8 on 07/19/2022 by Jordin Parish MD at [place] [facility] [place] N/A: Sternum JNJ : [employer] 02/22/2027 M654G / / SLBJCL Valve Heart Mitral Epic 31mm - [id number] - [id number] Implanted:Qty : 1 on 07/19/2022 by Jordin Parish MD at OR [facility] [place] N/A: Heart ST STEPH : CARDIOVASCULAR [id number] 01/24/2026 [id number] 00 / [id number] / [id number] documented as of this encounter Visit Diagnoses [...] Advance Directives occurred with: Patient Care Teams Disease Control Inspector Relationship Specialty Start Date End Date Judi Broderick MD 200 [facility] [place] [address] PCP - General Family Medicine 02/24/23 documented as of this encounter
--- OUTSIDE RECORDS SUMMARY | 2024-04-14 21:30 | External Medical Summary | Summary of Care ---
Author Name Unknown Organization [facility] Address [address] [place] [address] Phone [phone] Care Team Providers Care Computer Help Desk Representative Name Role Phone Judi Broderick MD Primary Care Provider [phone] Reason for Visit * Reason Comments Outpatient Testing Encounter Details Date Type Department Care Team (Late st Contact Info) Description 02/16/2024 4:30 PM EDT Laboratory Laboratory [facility] [address] [place] [address] [place], Lab Scenery [address] [place] [address] Paroxysmal atrial fibrillation (HCC) Allergies Active Allergy [...] mouth in the evening as instructed by [facility] 135 Tablet 1 06/03/2023 Active Additional Information Patient taking differently: 15 mg, Take one to one and one half tablet by mouth in the evening as instructed by [facility], Reported on 11/07/2023 Magnesium Oxide [...] mRNA, LNP-s, No Pre serve, 2-Dose Series ([employer]) 02/21/2021,08/02/2020,07/05/2020 COVID-19, LNP-s, No Preserve , Rubio-sucrose, [...] Anticoagulation Centralized Clinical Pharmacy Services, Paige Beverly [address] [place] [address] [place] [address] [facility], [address] [place] [address] 02/20/2024 12:40 PM EDT Office Visit Family Practice [facility] 200 [facility] [place] [address] Judi Broderick MD 200 [facility] [place] [address] 03/31/2024 2:45 PM EST Office Visit Urology, [facility] 132 [facility] [place] [address] Stuart Cullen MD [address] [place] [address] 04/20/2024 3:00 PM EST Office Visit Cardiology, [facility] 132 [facility] [place] [address] Ibis Garza PA-C 400 [facility] [place] [address] 06/01/2024 12:40 PM EST Office Visit Pulmonary Medicine, [facility] 132 [facility] [place] [address] Jose Alfredo Navarro MD [address] [place] [address] Pending Results Name Type Priority Associated Diagnoses Date /Time PT INR Lab Routine Paroxysmal atrial fibrillation (HCC) 02/16/2024 4:42 PM EDT Scheduled Procedures Name Priority Associated [...] this encounter Medical Devices Implanted Type Area Meteorology Professor Device Identifier Shelf Expiration Date Model / Serial / Lot Suture Steel 6 B&S19 M654g - [id number] Implanted:Qty : 8 on 07/19/2022 by Jordin Parish MD at OR [facility] [place] N/A: Sternum JNJ : [employer] 02/22/2027 M654G / / SLBJCL Valve Heart Mitral Epic 31mm - [id number] - [id number] Implanted:Qty : 1 on 07/19/2022 by Jordin Parish MD at OR [facility] [place] N/A: Heart ST STEPH : CARDIOVASCULAR [id number] 01/24/2026 [id number]- 00 / [id number] / [id number] documented as of this encounter Visit Diagnoses [...] Advance Directives occurred with: Patient Care Teams Computer Help Desk Representative Relationship Specialty Start Date End Date Judi Broderick MD [address] [place] [address] PCP - General Family Medicine 02/24/23 documented as of this encounter
--- OUTSIDE RECORDS SUMMARY | 2024-04-14 21:30 | External Medical Summary ---
Author Name Unknown Address Unknown Organization K01:[facility] N Peng Sena [facility] [address] Laboratory Report Ordering Provider Test Date Status KEILY URBINA 02/09/2024 16:13:32 Final Standing order for pt/inr. < br/>Please draw pt/inr every 1 to 4 weeks as requested
Results to [facility]

Warfarin Therapy
INR: 2.0-3.0 conventional anticoagulation
INR: 2.5-3.5 high intensity anticoagulation Observation Date Value Abnormality Reference (Units ) Status PT 02/09/2024 16:13:32 12.8 11.6-15.2 (seconds) Final INR 02/09/2024 16:13:32 1.0 0.8-1.2 Final Performing Location [facility] N Harsh Cooper. [facility] [address]
--- OUTSIDE RECORDS SUMMARY | 2024-04-14 21:30 | External Medical Summary | Summary of Care ---
Author Name Unknown Organization [facility] Address [address] [place] [address] Phone [phone] Care Team Providers Care Portfolio Lead Name Role Phone Judi Broderick MD Primary Care Provider [phone] Reason for Visit * Reason Onset Date Comments Medication Problem 02/10/2024 Possible drug interaction Encounter Details Date Type Department Care Team (Late st Contact Info) Description 02/10/2024 Telephone Pulmonary Medicine, [facility] 132 [facility] [place] [id number] Jose Alfredo Navarro MD [address] [facility] [place] [address] Medication Problem (Possible drug interact... Allergies Active Allergy Reactions Criticality Noted Date [...] as instructed by [facility] 135 Tablet 1 06/03/2023 Active Additional Information Patient taking differently: 15 mg, Take one to one and one half tablet by mouth in the evening as instructed by [facility], Reported on 11/07/2023 Magnesium Oxide [...] mRNA, LNP-s, No Pre serve, 2-Dose Series ([employer]) 02/21/2021,08/02/2020,07/05/2020 COVID-19, LNP-s, No Preserve , Rubio-sucrose, [...] Telephone Encounter - Destiny Ramirez LPN - 02/10/2024 12:18 PM EDT [facility] called to report possible drug interaction (potential for prolonged QT interval) between the Zithromax prescribed yesterday and the Lexapro he is on. Dr Navarro was made aware, but said the pt did well with Zpack in the past and advised the pharmacyto go ahead and fill it. Pharmacy aware. documented in this encounter Plan of Treatment Upcoming Encounters Date Type Department Care Team (Late st Contact Info) Description 02/16/2024 4:40 PM EDT Laboratory Laboratory [facility] [place] [address] [phone] Kati Pollard [place] [address] [address] 02/17/2024 6:15 AM EDT [facility] Clinical Pharmacy Services, [address] [place] [address] [place] [address] 02/20/2024 12:40 PM EDT Office Visit Family Practice [facility] [place] [address] [place] [address] [address] Judi Broderick MD [address] [address] 03/31/2024 2:45 PM EST Office Visit Urology, [facility] 132 [facility] [place] [address] Stuart Cullen MD 27 [place] [id number] 04/20/2024 3:00 PM EST Office Visit Cardiology, [facility] 132 [facility] [place] [address] Ibis Garza PA-C [address] [place] [address] [place] [address] Scheduled Procedures Name Priority Associated Diagnoses Date/Ti [...] this encounter Medical Devices Implanted Type Area Media Coordinator Device Identifier Shelf Expiration Date Model / Serial / Lot Suture Steel 6 B&S19 M654g - [id number] Implanted:Qty : 8 on 07/19/2022 by Jordin Parish MD at [place] [facility] [place] N/A: Sternum JNJ : [employer] 02/22/2027 M654G / / SLBJCL Valve Heart Mitral Epic 31mm - [id number] - [id number] Implanted:Qty : 1 on 07/19/2022 by Jordin Parish MD at [place] [facility] [place] N/A: Heart ST STEPH : CARDIOVASCULAR [id number] 01/24/2026 [id number]- 00 / [id number] / [id number] documented as of this encounter Advance Directives [...] Advance Directives occurred with: Patient Care Teams Portfolio Lead Relationship Specialty Start Date End Date Judi Broderick MD [address] [place] [address] PCP - General Family Medicine 02/24/23 documented as of this encounter
--- OUTSIDE RECORDS SUMMARY | 2024-04-14 21:31 | External Medical Summary | Summary of Care ---
Author Name Unknown Organization [facility] Address [address] [place] [address] Phone [phone] Care Team Providers Care Director Council On Aging Name Role Phone Judi Broderick MD Primary Care Provider [phone] Reason for Visit * Reason Onset Date Comments FYI 11/07/2023 Encounter Details Date Type Department Care Team (Late st Contact Info) Description 11/07/2023 Telephone Family Practice [facility] [place] [address] [place] [address] Judi Broderick MD [address] [place] [address] FYI Allergies Active Allergy Reactions Criticality Noted Date Comments Doxycycline 01/27/2020 Muscle rigidly Molds & Smuts Low 12/03/2019 Other reaction(s): Congested Pollen Extract Low 05/16/2022 Other reaction(s): Congested documented as of this encounter (statuses as of 02/06/2024) Medications Medication Sig Dispensed Refills Start Date [...] mouth in the evening as instructed by [facility] 135 Tablet 1 06/03/2023 Active Additional Information Patient taking differently: 15 mg, Take one to one and one half tablet by mouth in the evening as instructed by [facility], Reported on 11/07/2023 Magnesium Oxide [...] or Wheezing. 54 g 1 10/29/2023 Active Budesonide-Formoter ol Fumarate 160-4.5 MCG/ACT Inhalation Aerosol (Symbicort)Indicati ons:Mild persistent asthma without complication Inhale 2 Puffs by mouth in the morning and 2 Puffs before bedtime. 30.6 g 4 10/29/2023 Active documented as of this encounter (statuses as of 02/06/2024) Active Problems Problem Noted Date Diagnosed Date [...] as of this encounter (statuses as of 02/06/2024) Resolved Problems Problem Noted Date Diagnosed Date [...] as of this encounter (statuses as of 02/06/2024) Immunizations Name Administration Dates Next Due COVID-19 mRNA, LNP-s, No Pre serve, 2-Dose Series ([employer]) 02/21/2021,08/02/2020,07/05/2020 COVID-19, LNP-s, No Preserve , Rubio-sucrose, Ages 12+ ([employer]) 08/30/2021 Covid-19, Mrna, Lnp-s, Pf, B ivalent, [...] encounter Miscellaneous Notes * Telephone Encounter - MeleRaghavJoycelyn, PAUL - 11/07/2023 1:58 PM EDT Pt and spouse walked in late I was assisting another pt Judi was assisting a pt Pt's spouse immediately got upset when they saw the kiosks When I was able to help pt. Spouse tried to follow me behind my desk all the while talking and not letting me speak. I tried to tell her she was not allowed to look at my screen,several times. I made 2 complete circles with the spouse following me. She said she didn't care and was not looking at the screen. I was trying to speak but did not want to interrupt at the same time . I finally had to raise my voice & asked to let me speak. I kept trying to nicely interrupt without provoking but anything I said or did made it worse. I remained silent to allow the pt to get everything out so that hopefully they would let me answer their questions & hopefully calm them down. continued flipping right as Iwent to say just one word. Judi stepped in and let her know that it is a HIPAA violation for her toview the screen. Spouse finally stopped. I tried to help them check in and when I asked for the last name, the spouse flipped out saying I already got the last name from the kiosk. She started where she left off w/ flipping out instead of kindly speaking to me . She was flipping out so fast about so much at once that I cannot remember at this point everything that was said. I refused to respond to anything that was being said until theylet out everything they needed to say again. Then I went ahead & checked them in & got their copay taken care of . The rest of the time was silence. documented in this encounter Plan of Treatment Upcoming Encounters Date Type Department Care Team (Late st Contact Info) Description 02/09/2024 8:20 AM EDT Office Visit Pulmonary Medicine, [facility] 132 [facility] [place] [address] Jose Alfredo Navarro MD [address] [facility] [place] [address] 02/09/2024 4:40 PM EDT Laboratory Laboratory [facility] [address] [id number] [facility] [address] [facility] [place] [address] 02/10/2024 6:15 AM EDT Anticoagulation Centralized Clinical Pharmacy Services, Paige Beverly [address] [place] [address] [place] [address] [place] [address] 02/20/2024 12:40 PM EDT Office Visit Family Practice [facility] [address] [place] [address] Judi Broderick MD [address] [place] [address] 03/31/2024 2:45 PM EST Office Visit Urology, [facility] 132 [place] [address] Stuart Cullen MD [address] [place] [address] 04/20/2024 3:00 PM EST Office Visit Cardiology, [facility] 132 [place] [address] Ibis Garza PA-C 400 [facility] [place] [address] Scheduled Procedures Name Priority Associated Diagnoses Date/Ti me COLONOSCOPY FLEXIBLE PROXIMA L DIAGNOSTIC Recall History of colonic polyps Health Maintenance Due Date Last Done Comments Adult Wellness Visit 2010 Zoster Vaccines (3 of 3) 01/17/2020 11/22/2019, 11/24 Depression Monitoring 07/21/2021 07/21/2020 Mckeon's Esophagus Surveilance 02/14/2023 02/15/2020, 06/06/2009, 05/12/2008 COVID-19 Vaccine ( season) 2024 02/18/2023, 02/17/2022, 08/30/2021, Additional history exists Influenza Vaccine (FLU shot) (#1) 2024 02/03/2023, 02/14/2022, 02/13/2021, Additional history exists Albumin/Creatinine Ratio 09/03/2024 09/03/2021 GFR 01/21/2025 01/22/2024, 0801/2024, 08/26/2023, Additional history exists Colonoscopy 04/30/2026 04/30/2023, 03/27, 04/20/2019, Additional history exists DTap/Tdap Vaccines (3 - Td or Tdap) 10/17/2032 10/17/2022, 02/03/2012, 12/14/2001, Additional history exists Hepatitis B Vaccine Completed 03/14/2003, 01/08/2002, 12/14/2001 Pneumococcal Vaccine: 65+ Years Completed 02/20/2015, 02/03/2012, 03/11/2005 RETIRED - COLONOSCOPY-EVERY 2 YRS AGES 18-100 Discontinued 04/30/2023, 04/20/2019, 04/20/2019, Additional history exists HPV (Gardasil) Vaccine Aged Out No lo nger eligible based on patient's age to complete this topic MENINGOCOCCAL (MENACTRA/MENVEO) Aged Out No longer eligible based on patient's age to complete this topic documented as of this encounter Medical Devices Implanted Type Area Cable Installer Device Identifier Shelf Expiration Date Model / Serial / Lot Suture Steel 6 B&S19 M654g - [id number] Implanted:Qty : 8 on 07/19/2022 by Jordin Parish MD at OR [facility] N/A: Sternum JNJ : [employer] 02/22/2027 M654G / / SLBJCL Valve Heart Mitral Epic 31mm - [id number] - [id number] Implanted:Qty : 1 on 07/19/2022 by Jordin Parish MD at OR [facility] N/A: Heart ST STEPH : CARDIOVASCULAR [id number] 01/24/2026 [id number]- 00 / [id number] / [id number] documented as of this encounter Advance Directives [...] Advance Directives occurred with: Patient Care Teams Director Council On Aging Relationship Specialty Start Date End Date Judi Broderick MD [address] [place] [address] PCP - General Family Medicine 02/24/23 documented as of this encounter
[2024-04-15] MEDS: GADOBUTROL 65ML VIAL IV ONE (00:19)
--- NOTE | 2024-04-15 01:14 | Magnetic Resonance Report ---
EXAM: MR brain wo/w con CLINICAL HISTORY: episode of slurred speech. ? facial droop. fell on ground yesterday. did not hit head. was unable to get up after fall. CT head 04/14/24. MRI brain 01/05/23. room 251-1. injected 11cc gadavist through existing iv uneventful 0015. 256 images TECHNIQUE: Multisequential and multiplanar images of the brain were submitted for review with and without contrast. COMPARISON: 05 JAN 2023. FINDINGS: Focal encephalomalacia with gliosis is noted involving right parietotemporal lobe cortex and subcortical white matter causes mild ex vacuo dilatation of adjacent right lateral ventricle. Generalized parenchymal atrophy is appreciated. Scattered foci of increased T2/FLAIR signal abnormality are identified within the bilateral periventricular and subcortical white matter, and are most commonly associated with chronic small vessel ischemic disease. No focal parenchymal lesions are seen. No intracranial hemorrhage, mass effect, midline shift, extra-axial collection, or hydrocephalus is identified. Ventricles, sulci, and basal cisterns are symmetric and normal in size and configuration. Diffusion-weighted sequences show no evidence of acute ischemic infarction. Midline structures including the pituitary gland, corpus callosum, pineal region, and brainstem are unremarkable. The craniovertebral junction is within normal limits. No calvarial abnormalities are identified. Left maxillary sinusitis noted. Rest of the paranasal sinuses and mastoid air cells are clear. Orbital structures are unremarkable. Appropriate flow voids are present in the visualized intracranial vessels. IMPRESSION: 1. No acute ischemia, space occupying mass, or other acute intracranial pathology is demonstrated. 2. Chronic small vessel ischemic disease.-same. 3. Diffuse cerebral atrophy. 4. Focal encephalomalacia with gliosis is noted involving right parietotemporal lobe cortex and subcortical white matter causes mild ex vacuo dilatation of adjacent right lateral ventricle. 5. Left maxillary sinusitis. 6. No other new interval changes since prior study. Electronically signed by Jan Rainey 04-15-2024 01:13 AM
--- NOTE | 2024-04-15 06:00 | Electrocardiogram Report ---
Test Reason : Blood Pressure : */* mmHG Vent. Rate : 97 BPM Atrial Rate : * BPM P-R Int : * ms QRS Dur : 84 ms QT Int : 330 ms P-R-T Axes : * 55 39 degrees QTcB Int : 419 ms Atrial fibrillation with premature ventricular or aberrantly conducted complexes Abnormal ECG When compared with ECG of 08-Nov-2023 05:16, T wave inversion no longer evident in Anterior leads Confirmed by Arnoldo Raphael ([id number]) on 04/15/2024 6:00:05 AM Referred By: Confirmed By: Arnoldo Raphael
[2024-04-15 06:41] LABS: Hematocrit (blood only) 42.9 % (42.0-52.0); Hemoglobin 14.5 g/dl (14.0-18.0); Mean Corpuscular Hemoglobin 32.5 pg (25.0-34.0); Mean Corpuscular Hgb Conc 33.8 g/dL (32.0-36.0); Mean Corpuscular Volume 96.2 fL (80.0-100.0); Mean Platelet Volume 9.7 fL (9.4-12.4); Platelet Count 126 K/uL (130-400); RDW Coefficient of Variation 14.5 % (11.5-14.5); RDW Standard Deviation 51.8 fL (36.4-46.3); Red Blood Count 4.46 M/uL (4.70-6.10); White Blood Count 5.36 K/ul (4.8-10.8)
[2024-04-15 07:04] LABS: BUN Creatinine Ratio 19.2 (10-20); Calcium 8.9 mg/dl (8.6-10.3); Chol HDL Ratio 2.1 (0-5); Creatinine Clr Calc Pharmacy 68.8 ml/min; Estimated Average Glucose 117 mg/dl; Hemoglobin A1C 5.7 % (4.5-5.6); Phosphorus 3.2 mg/dl (2.5-4.9); Potassium 3.9 mmol/L (3.5-5.1)
[2024-04-15 07:11] LABS: INR 1.8 (0.9-1.1); Prothrombin Time 18.4 Seconds (9.0-12.0)
--- NOTE | 2024-04-15 07:58 | Pharmacy Report ---
- Date of Service April 15, 2024 - Pharmacy CVA/TIA Medication Review Medications to Prevent Stroke handout has been added to the patients discharge packet. Antiplatelet(s) * stroke rule out, unclear if TIA per notes Cholesterol * High intensity statin: atorvastatin 40 mg daily DVT Prophylaxis * see below Therapeutic Anticoagulation * Hx Afib/Aflutter noted, and patient is currently receiving warfarin, however plan to change to eliquis on discharge Type 2 Diabetes * Patient does not have T2DM
--- NOTE | 2024-04-15 07:58 | Hospitalist Progress Note ---
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 Strokelike Symptoms: Head CT -> Cerebral atrophy with chronic microvascular ischemic changes, no evidence of acute ischemia/hemorrhage. Head CT personally reviewed and unremarkable. Neck CTA noted mild stenosis within the left common/internal carotid arteries. Stroke order set pending and includes: brain MRI, echo, neurology consult, AM lipid panel/Hgb A1c. Continue routine neuro checks. PT/OT, speech therapy evaluations pending. Continue home atorvastatin. Neurologist advised to change Coumadin to Eliquis if possible Acute Viral Respiratory Infection, Asthma: Biofire positive for entero- /rhinovirus, CXR personally reviewed and rather unremarkable. No hypoxia, patient saturating well on room air. No leukocytosis on admitting labs. Wheezing heard throughout all lung rosales on exam. Pulmonary toilet with incentive spirometry, flutter valve and scheduled nebs. Holding off on ABX and steroids for now. Reassess tomorrow, patient may benefit from po ABX + steroid course if symptoms are not improving. Continue home maintenance inhaler, Singulair. Contact isolation precautions on board. History of MSSA Endocarditis: S/p bioprosthetic MVR/debridement. Continue cefadroxil 500mg BID for chronic suppressive therapy. Chronic Diastolic Heart Failure: CXR without evidence of pulmonary edema however he does have 3+ BLE pitting edema on exam. Continue home diuretics. Other Chronic Medical Conditions: HTN/HLD/BPH/Gout/Depression --> Can continue home medications for these specific conditions. Continue home warfarin, repeat PT/INR tomorrow AM. DVT Prophylaxis: On warfarin [employer] 2/2 PAF and history of DVT/PE (INR therapeutic at 2.3 on admission) - continue. Code Status: FULL CODE PCP: Judi Broderick MD Disposition: Admit to Med/Tele - Anticipated discharge date uncertain at this time pending on his clinical course. I spent a total of [] minutes coordinating, documenting, and providing care for this patient excluding time spent in the performance of separately billed services. All of the aforementioned completed while collaborating with the assigned attending physician for a full treatment plan. Please see their addendum for further details. This chart was completed in part utilizing Speech Voice Recognition Software. Grammatical errors, random word insertions, pronoun errors, and incomplete sentences are an occasional consequence of this system due to software limitations, ambient noise, and hardware issues. Any formal questions or concerns about the content, text, or information contained within the body of this dictation should be directly addressed to the provider for clarification. Admission and Anticipated Discharge Date Admission Date: April 14, 2024 Review of Systems Review of Systems: Neuro: (-) Falls, trauma, slurred speech HEENT: (-) COOPER, dizziness, dysphagia, visual or auditory changes CV: (-) CP, palpitations, swelling Resp: (-) SOB GI: (-) appetite changes, N/V/D, bowel changes : (-) urinary changes Skin: (-) rashes Psych: (-) anxiety, depression Physical Exam Physical Exam: Neuro: AAOx4, PERRLA, no aphagia, memory changes, CNII-XII grossly intact HEENT: head normocephalic, moist mucus membranes CV: S1/S2, (-) M/G/R, (-) edema, cap refill < 3 seconds Resp: Lungs CTA in all rosales. On RA GI: Abdomen S/NT/ND, Ax4 bowel sounds, (-) CVA tenderness Musculoskeletal: 5/5 B/L UE strength, 5/5 B/L LE strength. No gait disturbance Skin: (-) rashes , (-) erythema. Psych: euthymic mood Results & Data Results & Data Vital Signs (Past 12 Hours) Vital Signs Temp Pulse Pulse Resp BP Pulse Ox O2 Del Method 04/15/24 07:15 75 04/15/24 07:06 71 20 94 Room Air 04/15/24 03:51 36.6 C 72 16 93/57 L 93 Room Air 04/15/24 01:41 80 15 94 Room Air 04/14/24 23:00 36.7 C 89 18 98/62 L 93 Room Air 04/14/24 21:53 86 04/14/24 20:00 Room Air Laboratory Results Short CBC 04/15/24 Range/Units 05:47 WBC 5.36 (4.8-10.8) K/ul Hgb 14.5 (14.0-18.0) g/dl Hct 42.9 (42.0-52.0) % Plt Count 126 L (130-400) K/uL BMP 04/15/24 05:47 Sodium 142 Potassium 3.9 Chloride 106 Carbon Dioxide 31 BUN 19 Creatinine 0.99 Glucose 91 Calcium 8.9 Diagnostic Findings Brain MRI 04/14/24 10:23 EXAM: MR brain wo/w con CLINICAL HISTORY: episode of slurred speech. ? facial droop. fell on ground yesterday. did not hit head. was unable to get up after fall. CT head 04/14/24. MRI brain 01/05/23. room [facility]. injected 11cc gadavist through existing iv uneventful 0015. 256 images TECHNIQUE: Multisequential and multiplanar images of the brain were submitted for review with and without contrast. COMPARISON: 05 JAN 2023. FINDINGS: Focal encephalomalacia with gliosis is noted involving right parietotemporal lobe cortex and subcortical white matter causes mild ex vacuo dilatation of adjacent right lateral ventricle. Generalized parenchymal atrophy is appreciated. Scattered foci of increased T2/FLAIR signal abnormality are identified within the bilateral periventricular and subcortical white matter, and are most commonly associated with chronic small vessel ischemic disease. No focal parenchymal lesions are seen. No intracranial hemorrhage, mass effect, midline shift, extra-axial collection, or hydrocephalus is identified. Ventricles, sulci, and basal cisterns are symmetric and normal in size and configuration. Diffusion-weighted sequences show no evidence of acute ischemic infarction. Midline structures including the pituitary gland, corpus callosum, pineal region, and brainstem are unremarkable. The craniovertebral junction is within normal limits. No calvarial abnormalities are identified. Left maxillary sinusitis noted. Rest of the paranasal sinuses and mastoid air cells are clear. Orbital structures are unremarkable. Appropriate flow voids are present in the visualized intracranial vessels. IMPRESSION: 1. No acute ischemia, space occupying mass, or other acute intracranial pathology is demonstrated. 2. Chronic small vessel ischemic disease.-same. 3. Diffuse cerebral atrophy. 4. Focal encephalomalacia with gliosis is noted involving right parietotemporal lobe cortex and subcortical white matter causes mild ex vacuo dilatation of adjacent right lateral ventricle. 5. Left maxillary sinusitis. 6. No other new interval changes since prior study. Electronically signed by Jan Rainey 04-15-2024 01:13 AM
[2024-04-15] MEDS: SPIRONOLACTONE 25 MG TAB PO SCH (08:52)
[2024-04-15] MEDS: FINASTERIDE 5 MG TAB PO SCH (08:53)
[2024-04-15] MEDS: CETIRIZINE HCL 10 MG TABLET PO SCH (08:53)
[2024-04-15] MEDS: ESCITALOPRAM OXALATE 10 MG TAB PO SCH (08:53)
[2024-04-15] MEDS: ASCORBIC ACID 500 MG TAB PO SCH (08:54)
[2024-04-15] MEDS: TAMSULOSIN HCL 0.4 MG CAP PO SCH (08:54)
[2024-04-15] MEDS: OXYBUTYNIN CHLORIDE XL 5 MG TABCR PO SCH (08:54)
[2024-04-15] MEDS: FLUTICASONE PROPIONATE NA SPR 16 GM BTL SCH (08:55)
[2024-04-15] MEDS: POTASSIUM CHLORIDE 10 MEQ TABCR PO SCH (08:59)
[2024-04-15 12:00] VITALS: TEMP 98.1
[2024-04-15 12:42] VITALS: RESP 18; O2SAT 97
--- NOTE | 2024-04-15 15:48 | Discharge Summary ---
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 History obtained from patient and associated chart review. not present at bedside during our conversation. Patient reports that family noticed he was slurring his speech last night around 8PM when they were having dinner. Patient mentions that he did not notice he was slurring his speech at that time and he ended up going to bed late last night without any issues. However he had gotten up to go to the bathroom earlier this morning (~3 to 4AM) when he developed acute left-sided weakness and subsequently fell to the ground. He reports that his left side "just gave out." He denies hitting his head during this fall or ever losing consciousness however he was unable to get up off the floor by himself and ended up laying on the floor for approximately 45 minutes before EMS arrived. Patient states that his noticed he was still slurring his speech this morning and that he had a slight left-sided facial droop. Patient reports that his left lower extremity weakness has improved but his left upper extremity weakness still persists. He does have some residual left-sided hemiparesis from his previous CVA last December. He did have a few glasses of wine last night which his family thought was initially attributing to his slurred speech however it is still persisting. Head CT noted cerebral atrophy with chronic microvascular ischemic changes and an old area of gliosis in the right temporoparietal lobe however there was no evidence of large territorial ischemic/hemorrhagic stroke. Head CTA was unremarkable. Neck CTA revealed mild stenosis in the left common/internal carotid arteries but was otherwise unremarkable. Patient is on warfarin secondary to paroxysmal atrial fibrillation and history of DVT/PE - INR within the therapeutic range at 2.3 on admission. Patient also notes that he has been dealing with some shortness of breath/wheezing, sinus/chest congestion and productive cough for the past couple of weeks. He was recently on vacation in [place] and completed a Medrol Dosepak without any improvement in his symptoms. He has been using [id number] medications to help with the congestion without much relief. He is on chronic suppressive therapy with cefadroxil due to history of MSSA endocarditis however he has not been on any other antibiotic courses since this illness began. He has been using nebulizer treatments in addition to his rescue inhaler without much improvement in his SOB/wheezing. His cough is productive of yellow sputum at this point. He is not on supplemental oxygen at home and he was not hypoxic upon arrival to the ED here today. He denies any recent fevers, chills or body aches. CXR revealed moderate unchanged cardiomegaly without evidence of pulmonary edema nor pneumonia. Biofire however was positive for entero-/rhinovirus. Admission Exam Per Admitting Provider General: Obese, NAD, sitting up in bed, very pleasant, conversing appropriately with intermittently slurred speech. A+Ox3, euthymic affect. HEENT: Normocephalic, atraumatic. Conjunctivae normal, anicteric sclerae. External ear and nose normal, oropharynx normal. Respiratory: Normal respiratory effort, expiratory wheezing heard throughout all lung rosales, no rhonchi/rales, on RA. No accessory muscle use. Cardiovascular: Regular rate, rhythm, normal peripheral pulses, 3+ BLE pitting edema. Vessels: No JVD. Abdomen/GI: Normal bowel sounds, soft, somewhat distended but nontender to palpation in all quadrants. Extremities/Musculoskeletal: Strength 4/5 in the RUE but otherwise 5/5 in all other extremities, actively moves all extremities. Neurologic: Slight left-sided facial drooping, mild dysarthria, CN's II-XI not formally tested but appear grossly intact bilaterally. Skin: No rashes, normal color, warm/dry. Principal Diagnosis Transient ischemic attack Rhinovirus infection Discharge Exam Neuro: AAOx4, PERRLA, no aphagia, memory changes, CNII-XII grossly intact NIH 0 HEENT: head normocephalic, moist mucus membranes CV: S1/S2, (-) M/G/R, (-) edema, cap refill < 3 seconds Resp: Lungs decreased in all rosales. On RA GI: Abdomen S/NT/ND, Ax4 bowel sounds, (-) CVA tenderness Musculoskeletal: 5/5 B/L UE strength, 5/5 B/L LE strength. No gait disturbance Skin: (-) rashes , (-) erythema. Psych: euthymic mood Discharge Data Allergies Allergy/AdvReac Type Severity Reaction Status Date / Time mold Allergy Mild Congested Verified 02/04/24 07:05 pollen extracts Allergy Mild Congested Verified 02/04/24 07:05 doxycycline AdvReac Severe LIVER/KIDNEY Verified 02/04/24 07:05 PROBLEMS Consultations 04/14/24 10:23 Consult Neurology Routine 04/14/24 10:30 ED Decision to Admit Stat Ordered Studies 04/14/24 06:43 CT angio head w con Stat CT angio neck with con Stat CT head/brain wo con Stat 04/14/24 10:23 MR brain wo/w con Routine Hospital Course (1) Viral respiratory infection: (2) Stroke-like symptoms: Plan Strokelike symptoms: Patient with transient worsening of left-sided weakness that began yesterday. Patient does have a history of prior stroke leading to residual left-sided weakness. Patient does have atrial fibrillation for which she takes Coumadin. Imaging including head CT, head neck CTA and brain MRI unremarkable. Echocardiogram performed EF 50 to 55%, mild TR, bioprosthetic valve noted, LV wall motion normal. Suspecting that this is a TIA. Neurology did evaluate the patient and recommended that he switch his from Coumadin to Eliquis. No further outpatient neurology follow-up recommended. PT/OT recommended and hardcopy prescription given to patient. Rhinovirus: Acute Supportive treatment Incidental finding via bio fire Clear yellow productive sputum Recommend incentive spirometry plus flutter valve Patient utilize nebulizer while inpatient Continue droplet isolation for another 4 to 5 days and limit contact with others Total Time Total Time Spent Total Time Spent (In Minutes): I spent a total of 59 minutes coordinating, documenting, and providing care for this patient excluding time spent in the performance of separately billed services. All of the aforementioned completed while collaborating with the assigned attending physician for a full treatment plan. Please see their addendum for further details. Discharge Plan Discharge Items Patient Disposition: Home - Self-Care Reason For Visit: STROKE R/O, ACUTE ENTERO-/RHINOVIRUS INFECTION Discharge Diagnosis: stroke like symptoms Activity: Resume your previous activity Non-emergency contact: Primary Care Provider Call non-emergency contact if: you have any medication questions, your symptoms worsen, your pain is not controlled and your temperature is above 101 Follow-up/Referrals: Judi Broderick MD [Primary Care Provider] - (Date & Time 04/20/2024 10:00 AM Provider Judi Broderick MD Department [facility] ) Diet: Heart Healthy Diet Texture: Easy to Chew Addtl Attending Provider Instructions: Ross Brenner presented to the [facility] via EMS on April 14 for evaluation of stroke like symptoms. While here at the hospital, you had numerous imaging tests performed including a head CT scan and brain MRI; all of which did not indicate any acute ischemic (reduced blood flow) changes, ultimately the tests were normal. Your neck CTA noted mild stenosis within the left common/internal carotid arteries. You also had an echocardiogram (ultrasound of your heart) which remains unchanged from previous studies. You also had additional blood work including a cholesterol blood panel which was normal. Incidentally, you were diagnosed wtih rhinovirus in the emergency room. This is ultimately a common cold virus that may have worsened your gait leading to some of your symptoms. Physical Therapy evaluated you while you were here and suggested continued physical therapy at the gym you receive personal training or one that supports physical therapy. You will receive a script for PT/OT today when you are discharged. We recommend that you continue with pulmonary toileting to empty your lungs from the virus with incentive spirometry and flutter valve. I would supportively treat your symptoms with over the counter medications, fluid hydration, and rest. When you were evaluated by the neurologist it was recommended that you be switched from Coumadin to another blood thinner called Eliquis. Just prior to your discharge, I touched base with Neurology who stated that no follow up appointment was needed with their office at this time. MEDICATION CHANGES: 1. Stop taking Coumadin on 04/15 2. Start taking Eliquis 5 mg by mouth twice daily starting on FridayApril 16. 3. Continue isolation precautions for your rhinovirus that include wearing a mask, practicing good hand hygiene and avoiding contact with other im munocompromised people for another 5 days. Ensure surfaces at home are disinfected. 4. Continue taking your other previously prescribed home medications. RECOMMENDATIONS FOR FOLLOW-UP: 1. You will have a follow up appointment with your PCP Dr. Judi Broderick on Friday 04/20 @ 10:00 AM. 2. As indicated above, You will receive a script for PT/OT today when you are discharged OTHER INSTRUCTIONS: Seek medical attention if you have: * temperature above 101 * chest pain or trouble breathing * abdominal pain, nausea, vomiting * diarrhea, dark stools or bloody stools * any unanswered questions or concerns Call 911 if symptoms are severe. Please take good care of yourself. It has been a pleasure taking care of you. Please take care of yourself. If you have any questions regarding your recent hospitalization please contact [facility] and request [facility] @ [phone]. Pending Studies at Discharge: No Stand-Alone Forms: My [facility], Smoking Cessation, Medications to Prevent Stroke Medications and DC Order Prescriptions: New Eliquis 5 mg tablet 5 mg PO BID Qty: 7 0RF Rx Instructions: START TAKING ON MONDAY 04/16 Continued cetirizine 10 mg Tablet 10 mg PO QAM allopurinol 100 mg Tablet 200 mg PO BID albuterol sulfate 90 mcg/actuation Hfa Aerosol Inhaler 2 inh INHALATION Q4 PRN (Reason: sob) montelukast [Singulair] 10 mg Tablet 10 mg PO HS atorvastatin 40 mg tablet 40 mg PO QPM selenium 50 mcg Tablet 50 mcg PO QAM vitamin E 400 unit Tablet 400 unit PO QAM vitamin B complex Tablet 1 tab PO QAM fluticasone propionate 50 mcg/actuation Elida,Suspension 2 spray INTRANASAL DAILY PRN (Reason: Congestion) Rx Instructions: administer into each nostril magnesium 200 mg Tablet 400 mg PO QAM escitalopram oxalate 10 mg tablet 10 mg PO QAM budesonide-formoterol [Symbicort] 160-4.5 mcg/actuation HFA aerosol inhaler 2 puff INHALATION BID cefadroxil 500 mg capsule 500 mg PO BID Qty: 60 0RF metoprolol succinate 50 mg Tablet Extended Release 24 Hr 50 mg PO BID ascorbic acid (vitamin C) [Vitamin C] 500 mg Tablet Extended Release 500 mg PO QAM solifenacin 10 mg Tablet 10 mg PO QAM omega [id number]-fish oil [Fish Oil] 1,000 mg (120 mg-180 mg) Capsule 1 cap PO QAM potassium chloride 10 mEq capsule, extended release 10 meq PO QAM spironolactone 25 mg tablet 25 mg PO QAM finasteride 5 mg tablet 5 mg PO QAM tamsulosin 0.4 mg capsule 0.4 mg PO QAM furosemide [Lasix] 40 mg tablet 40 mg PO BID Qty: 90 0RF Rx Instructions: Take 1-1/2 tablet 2 times daily for 3 days then resume 1 tablet 2 times a day Discontinued warfarin 5 mg tablet See Rx Instructions .ROUTE .COMPLEX Rx Instructions: 10 mg orally ;per pt he does 15 mg on Mondays and Fridays. The rest of days ( Fri, , Fri, , Fri) he does 10 mg. Discharge Orders: Discharge Order (Routine); Ordered 04/15/24 Ordered By: Fannie Jackman/Other Patient Handouts: Discharge Instructions for Stroke Admission Data Admit Date/Time: 04/14/24 10:23 Attending Provider: Rosa Trammell I. Admit Provider: Ricky Canales Primary Care Provider: Judi Broderick Other Providers: Jaylen Fofana; Davis Roberson; Manjinder Kuhn Other Interventions: Discharge Summary Assessment (RN) Last Done: 04/15/24 16:23 Supervising Physician Co-Signing Physician Notes Patient seen and examined Agree with findings and plans as detailed by Fannie BLAKE and take full responsibility
[2024-04-15] MEDS ORDERED: STROKE PATIENT DISCHARGE STA (16:10)
[2024-04-15 16:25] VITALS: BP 140/85; PULSE 62
[2024-04-16] MEDS ORDERED: WARFARIN SOD 5 MG TAB PO SCH (16:00)
--- NOTE | 2024-04-20 11:58 | Pharmacy Report ---
Pharmacist Stroke Counseling - Date of Service April 20, 2024 - Scope: Pharmacy has been consulted to provide medication discharge counseling for this patient admitted with [ischemic stroke] [hemorrhagic stroke] [transient ischemic attack] as per the Pharmacist Discharge Counseling for Stroke Patients Pro [facility]. - Medications on Discharge: Home Medications Medication Instructions Recorded Confirmed albuterol sulfate 90 mcg/actuation 2 inh inhalation Q4 PRN sob 12/30/19 04/14/24 aerosol inhaler allopurinol 100 mg tablet 200 mg PO BID 12/30/19 04/14/24 cetirizine 10 mg tablet 10 mg PO QAM 12/30/19 04/14/24 montelukast 10 mg tablet 10 mg PO HS 07/03/22 04/14/24 (Singulair) atorvastatin 40 mg tablet 40 mg PO QPM 10/07/22 04/14/24 budesonide-formoterol HFA 160 2 puff inhalation BID 10/07/22 04/14/24 mcg-4.5 mcg/actuation aerosol inhaler (Symbicort) escitalopram oxalate 10 mg tablet 10 mg PO QAM 10/07/22 04/14/24 fluticasone propionate 50 2 spray intranasal DAILY PRN 10/07/22 04/14/24 mcg/actuation nasal Congestion spray,suspension magnesium 200 mg tablet 400 mg PO QAM 10/07/22 04/14/24 selenium 50 mcg tablet 50 mcg PO QAM 10/07/22 04/14/24 vitamin B complex 1 tab PO QAM 10/07/22 04/14/24 vitamin E 400 unit tablet 400 unit PO QAM 10/07/22 04/14/24 ascorbic acid (vitamin C) 500 mg 500 mg PO QAM 01/27/24 04/14/24 tablet,extended release (Vitamin C ER) finasteride 5 mg tablet 5 mg PO QAM 01/27/24 04/14/24 metoprolol succinate 50 mg 50 mg PO BID 01/27/24 04/14/24 tablet,extended release 24 hr omega 1-ylt-hiu-fish oil 1,000 mg 1 cap PO QAM 01/27/24 04/14/24 (120 mg-180 mg) capsule (Fish Oil) potassium chloride 10 mEq 10 meq PO QAM 01/27/24 04/14/24 capsule,extended release solifenacin 10 mg tablet 10 mg PO QAM 01/27/24 04/14/24 spironolactone 25 mg tablet 25 mg PO QAM 01/27/24 04/14/24 tamsulosin 0.4 mg capsule 0.4 mg PO QAM 01/27/24 04/14/24 New Rx's Medication Instructions Recorded cefadroxil 500 mg capsule 500 mg PO BID #60 caps 10/16/22 furosemide 40 mg tablet (Lasix) 40 mg PO BID #90 tabs 11/09/23 apixaban 5 mg tablet (Eliquis) 5 mg PO BID #7 tabs 04/15/24 - Action: The above medications, specifically ones for stroke treatment/prophylaxis, have been reviewed in detail with the patient and/or patient credit resolution representative(s) prior to discharge. This includes indication, common adverse reactions, drug interactions, and medication administration. Medication counseling has been employed using the teach-back method to ensure understanding. - Outcome: The patient has demonstrated understanding of the medications. Additional comments: Patient was aware that he was to stop his warfarin and start Eliquis as prescribed. He was informed of what medication is used for, how to take it, and potential side effects to look for including bleeding. He had no further questions and expressed no concerns. He also stated he had his follow up appointment with his primary physician this morning. Thank you for allowing pharmacy to be involved in the care of this patient. Please call [phone] with any additional questions
== END 2024-04-15 17:03 | disposition home or self-care (01) | DRG 69 ==
LOC: ED 06:42 → 2W 10:23 → INTOOBSV 10:23 → SUATTDRO 10:23 → 2W 13:33